=== PATIENT | female | born 1990 | race African-American/Black ===

== ENCOUNTER 2019-09-29 14:14 | Emergency (ER) | payer MEDICAID, SELFPAY ==
[2019-09-29 14:35] VITALS: BP 112/67; PULSE 96; RESP 16; TEMP 38.4; O2SAT 100
--- NOTE | 2019-09-29 14:51 | ED.EAR ---
HPI - Ear Problem General Chief complaint: Urogenital-Female Stated complaint: pos UTI/bloody/earache Time Seen by Provider: 09/29/19 14:44 Source: patient and RN notes reviewed Mode of arrival: ambulatory Limitations: no limitations History of Present Illness HPI Narrative: Patient presents today with a 2-day history of bilateral ear pain. Denies fever, cough, congestion, rhinorrhea, sore throat, decreased hearing, drainage from the ears. She has been taking ibuprofen with some relief. Currently rates her pain 6/10. She also complains of a 2-day history of urinary frequency and blood with wiping. MD Complaint: ear pain and other (Urinary frequency) Related Data Allergies Allergy/AdvReac Type Severity Reaction Status Date / Time No Known Allergies Allergy Verified 06/19/18 18:18 Review of Systems Review of Systems: Narrative: CONSTITUTIONAL: Denies body aches, fever, chills, or sweats. EYES: Denies visual changes, redness, or discharge. ENT: Denies rhinorrhea, congestion, sore throat. + Bilateral ear pain CARDIOVASCULAR: Denies chest pain, palpitations, or edema. RESPIRATORY: Denies cough or dyspnea. GASTROINTESTINAL: Denies abdominal pain, nausea, vomiting, or diarrhea. GENITOURINARY: Denies dysuria. + Frequency, hematuria SKIN: Denies rash, itching, or wounds. MUSCULOSKELETAL: Denies back pain, joint pain, or myalgia. NEUROLOGIC: Denies headache, numbness, tingling, or weakness. PSYCH: Denies depression or anxiety. [facility] Family History Family History (Updated 02/08/16 @ 11:56 by DOCTOR UNKNOWN) Other Diabetes mellitus Hypertension Social History Social History (Updated 09/29/19 @ 14:52 by Luz Marina Balderas, [facility], ) Smoking status: Former smoker Alcohol intake: current Comments At time of signature, I have reviewed and agree with nursing past medical, surgical, social and family history unless otherwise noted. Please see nursing chart for further information. There is no relevant family history pertinent to the presenting complaint Exam Narrative: Exam Narrative: GENERAL: Well-appearing, well-nourished, and in no acute distress. HEAD: Normocephalic, atraumatic. EYES: EOMI. No redness or drainage. Conjunctivae normal. ENT: Mucous membranes pink and moist. Nares clear. No rhinorrhea. TMs erythematous and bulging with purulent material bilaterally. Throat normal. Uvula midline. NECK: Normal AROM. Supple. No lymphadenopathy. CHEST: No respiratory distress. Clear to auscultation. HEART: Regular rate and rhythm. No murmur appreciated. Normal peripheral pulses. ABDOMEN: Soft, nontender, nondistended, normal active bowel sounds.-CVAT MUSCULOSKELETAL: No bony tenderness. EXTREMITIES: Normal range of motion. No edema. SKIN: Warm, dry, no rash. NEURO: No focal deficits. Alert and oriented x3. Gait steady. PSYCH: Normal affect. No signs of depression or anxiety. Course Vital Signs Vital signs: Vital Signs Temperature 101.2 F H 09/29/19 14:35 Pulse Rate 96 09/29/19 14:35 Respiratory Rate 16 09/29/19 14:35 Blood Pressure 112/67 09/29/19 14:35 Pulse Oximetry 100 09/29/19 14:35 Temperature 101.2 F H 09/29/19 14:35 Pulse Rate 96 09/29/19 14:35 Respiratory Rate 16 09/29/19 14:35 Blood Pressure 112/67 09/29/19 14:35 Pulse Oximetry 100 09/29/19 14:35 Reviewed Medical Decision Making Differential Diagnosis Differential Diagnosis: AOM, otitis externa, ruptured TM, serous otitis, eustachian tube dysfunction, UTI, pyelonephritis, interstitial cystitis, vulvovaginitis Vital Signs Vital Signs: Vital Signs Temperature 101.2 F H 09/29/19 14:35 Pulse Rate 96 09/29/19 14:35 Respiratory Rate 16 09/29/19 14:35 Blood Pressure 112/67 09/29/19 14:35 Pulse Oximetry 100 09/29/19 14:35 Temperature 101.2 F H 09/29/19 14:35 Pulse Rate 96 09/29/19 14:35 Respiratory Rate 16 09/29/19 14:35 Blood Pressure 112/67 09/29/19 14:35 Pulse Oximetry 100
== END 2019-09-29 14:59 | disposition home or self-care (01) ==
PROVIDERS: Emergency Provider Nurse Practitioner
DX: N30.01 Acute cystitis with hematuria (principal); H66.003 Acute suppurative otitis media without spontaneous rupture of ear drum, bilateral; Z87.891 Personal history of nicotine dependence
CPT/HCPCS: 81003; 87086; 99213; G0463

== ENCOUNTER 2020-11-10 10:23 | Emergency (ER) | payer OTHER, SELFPAY ==
[2020-11-10 10:30] VITALS: BP 99/64; PULSE 74; RESP 17; TEMP 36.4; O2SAT 100
--- NOTE | 2020-11-10 10:30 | ED.DENTAL ---
HPI - Dental/Oral General Chief complaint: Dental/Oral Stated complaint: tooth abscess Source: patient Mode of arrival: ambulatory Limitations: no limitations History of Present Illness HPI Narrative: Patient is a 30 year old female who presents with dental pain. Patient reports that she has appointment with dentist on 11/22/20 for multiple extractions. Patient reports swelling to left gums and face x 2 days, increasing pain today. Patient reports taking otc medications for pain. MD Complaint: tooth pain Related Data Home Medications Medication Instructions Recorded Confirmed No Home Medications 11/10/20 11/10/20 Allergies Allergy/AdvReac Type Severity Reaction Status Date / Time No Known Allergies Allergy Verified 11/10/20 10:36 Review of Systems Review of Systems: Narrative: CONSTITUTIONAL: Denies fever, chills, or sweats. EYES: Denies visual changes, redness, or discharge. ENT: Denies rhinorrhea, congestion, sore throat, or otalgia. Right and left lower dental pain CARDIOVASCULAR: Denies chest pain, palpitations, or edema. RESPIRATORY: Denies cough or dyspnea. GASTROINTESTINAL: Denies abdominal pain, nausea, vomiting, or diarrhea. GENITOURINARY: Denies dysuria or hematuria. SKIN: Denies rash or itching. MUSCULOSKELETAL: Denies back pain, joint pain, or myalgia. NEUROLOGIC: Denies headache, numbness, dizziness, or weakness. PSYCHIATRIC: Denies anxiety or depression. [facility] Family History Family History Other Diabetes mellitus Hypertension Social History Social History Smoking status: Former smoker Alcohol intake: current Gender identity (if verbalized by the patient): Female Comments At the time of signature, I have reviewed and agree with nursing past medical, surgical, social, and family history unless otherwise noted. Please see nursing chart for further information. There is no relevant family history pertinent to the presenting complaint. Exam Narrative: Exam Narrative: GENERAL: Well-appearing, well-nourished, and in no acute distress. HEAD: Normocephalic, atraumatic. EYES: No redness or drainage. ENT: Mucous membranes pink and moist. Multiple dental caries, dental fractures. NECK: AROM. Supple. No lymphadenopathy. CHEST: No respiratory distress. HEART: Regular rate and rhythm. EXTREMITIES: Normal range of motion. No edema. SKIN: Warm, dry, no rash. NEURO: No focal deficits. Alert and oriented x3. Gait steady. PSYCH: Normal affect. No signs of depression or anxiety. MDM - Dental/Oral MDM Narrative Medical decision making narrative: Patient most likely has dental infection. Patient started on Augmentin at this time. Patient is aware that she needs to follow-up with her dentist on 11/22/2020 with appointment for extractions. She may take Tylenol or ibuprofen for pain or fever. Follow-up with PCP as needed. Differential Diagnosis Differential diagnosis: Likely gingival abscess, dental caries, toothache, dental abscess and fracture of tooth Critical Care Time Critical Care Time Critical Care Time: No Discharge Plan Discharge Clinical Impression: Toothache, Dental caries, Dental abscess Patient Disposition: Home, Self-Care Condition: Stable Instructions: Antibiotic Form, Dental Abscess (ED), Toothache (ED) Prescriptions: New amoxicillin-pot clavulanate 875-125 mg tablet 1 tablet PO Q12H 7 Days Qty: 14 RF: 0 No Action No Home Medications RF: 0 Follow-up/Referrals: UNKNOWN,DOCTOR [Primary Care Provider] - Stand Alone Forms: Work/School Release IP Time of Disposition: 10:39
== END 2020-11-10 10:43 | disposition home or self-care (01) ==
PROVIDERS: Emergency Provider Nurse Practitioner
DX: K02.9 Dental caries, unspecified (principal); K04.7 Periapical abscess without sinus; Z87.891 Personal history of nicotine dependence
CPT/HCPCS: 99213; G0463

== ENCOUNTER 2020-12-26 14:35 | Emergency (ER) | payer OTHER, SELFPAY ==
[2020-12-26 14:46] VITALS: BP 114/64; PULSE 20; RESP 20; TEMP 35.8; O2SAT 100
[2020-12-26 14:50] VITALS: BP 114/64; PULSE 20; RESP 20; TEMP 35.8; O2SAT 100
--- NOTE | 2020-12-26 14:59 | ED.FEMALEGU ---
HPI - Female Genitourinary General Chief complaint: Urogenital-Female Stated complaint: UTI Time Seen by Provider: 12/26/20 14:59 Source: patient, RN notes reviewed and old records reviewed Mode of arrival: ambulatory Limitations: no limitations History of Present Illness HPI Narrative: 30 year old female who presents to [facility] care with complaints of one week duration of vaginal itching, scant white vaginal drainage and burning when she urinate. Patient states that she took a Diflucan on December 15 and really didn't resolve symptoms. Patient states that symptoms seemed better for a few days then returned. She states that she has only one partner and has unprotected intercourse, wants to be checked for STD's an UTI. MD elicited complaint: dysuria, vaginal discharge (scant), possible STD and genital itching Pertinent past history: other (prior UTI's and labial abscess) Onset (ago): day(s) (week) Location of symptoms: external genitalia and vaginal Female Urogenital Radiation: Non-Radiating Severity scale (1-10): 4 Quality of pain: burning Consistency: intermittent Vaginal discharge: white, creamy and other (itchy) Vaginal bleeding: none Urinary symptoms: Dysuria Exacerbating factors: urination Relieving factors: none Treatment prior to arrival: other (Diflucan on 12/15/2020) Sexual activity: Yes Patient : No Related Data Allergies Allergy/AdvReac Type Severity Reaction Status Date / Time No Known Allergies Allergy Verified 11/10/20 10:36 Review of Systems Review of Systems: Narrative: CONSTITUTIONAL: Denies fever, chills, or sweats. EYES: Denies visual changes, redness, or discharge. ENT: Denies rhinorrhea, congestion, sore throat, or otalgia. CARDIOVASCULAR: Denies chest pain, palpitations, or edema. RESPIRATORY: Denies cough or dyspnea. GASTROINTESTINAL: Denies abdominal pain, nausea, vomiting, or diarrhea. GENITOURINARY: Positive dysuria no hematuria.vaginal itching with scant white discharge SKIN: Denies rash or itching. MUSCULOSKELETAL: Denies back pain, joint pain, or myalgia. NEUROLOGIC: Denies headache, numbness, or weakness. PSYCHIATRIC: Denies anxiety or depression. All systems reviewed & are unremarkable except as noted in HPI and below PMFSH Past Medical History Medical History (Updated 12/30/20 @ 20:00 by Leslie Ledezma NP) Abscess of labia Dentalgia Pilonidal abscess UTI (urinary tract infection) Surgical History Surgical History (Updated 12/30/20 @ 20:00 by Leslie Ledezma NP) No history of previous surgery Family History Family History Other Diabetes mellitus Hypertension Social History Social History (Updated 12/30/20 @ 19:51 by Leslie Ledezma NP) Smoking status: Former smoker Tobacco type: cigarettes Alcohol intake: current Substance use: never Living arrangements: with family Gender identity (if verbalized by the patient): Female Comments At time of signature, agree with nursing past medical, surgical, social and family history. There is no relevant family history pertinent to the presenting complaint Exam Narrative: Exam Narrative: GENERAL: Well-appearing, well-nourished, and in no acute distress. HEAD: Normocephalic, atraumatic. EYES: PERRLA and EOMI. ENT: Nares clear, no rhinorrhea or epistaxis. Mucous membranes moist.TM's normal with good light reflex, throat pink with no exudates or lesions, no tonsil enlargement NECK: Supple.no lymphadenopathy CHEST: Clear to auscultation. No respiratory distress.SAO2 100% on room air HEART: Regular rate and rhythm. No murmur heard. Normal peripheral pulses. ABDOMEN: Soft, nontender, nondistended, normal active bowel sounds.No CVA tenderness on exam or any suprapubic tenderness. cant white discharge stated that is itchy EXTREMITIES: Normal range of motion. No edema. SKIN: Warm, dry, no rash. NEURO: No focal deficits. Alert and oriented x3. Course Vital Signs
[2020-12-26] MEDS: LIDOCAINE HCL 1% LOCAL INJ 20 ML VIAL 2.1 ML IM (15:29)
[2020-12-26] MEDS: cefTRIAXone 1 GM VIAL IM (15:29)
== END 2020-12-26 15:54 | disposition home or self-care (01) ==
PROVIDERS: Emergency Provider Registered Nurse
DX: B37.3 Candidiasis of vulva and vagina (principal); Z20.2 Contact with and (suspected) exposure to infections with a predominantly sexual mode of transmission
CPT/HCPCS: 81003; 81025; 87077; 87086; 87088; 87186; 87491; 87591; 87661; 96372; 99214; G0463; J0696

== ENCOUNTER 2021-02-18 10:49 | Emergency (ER) | payer OTHER, SELFPAY ==
[2021-02-18 10:59] VITALS: BP 104/73; PULSE 66; RESP 20; TEMP 36.7; O2SAT 100
--- NOTE | 2021-02-18 11:31 | ED.FEMALEGU ---
HPI - Female Genitourinary General Chief complaint: Urogenital-Female Stated complaint: abd pain Time Seen by Provider: 02/18/21 11:09 Source: patient and RN notes reviewed Mode of arrival: ambulatory Limitations: no limitations History of Present Illness HPI Narrative: Patient presents today complaining of one episode of dysuria since yesterday, white vaginal discharge x2 days. Her last menstrual period was in December. She had 2 episodes of unprotected intercourse, one yesterday, and 1 2 weeks ago. She has been taking some ibuprofen for some lower abdominal discomfort. MD elicited complaint: dysuria and vaginal discharge Related Data Home Medications Medication Instructions Recorded Confirmed terbinafine HCl 250 mg PO DAILY 02/18/21 02/18/21 Allergies Allergy/AdvReac Type Severity Reaction Status Date / Time No Known Allergies Allergy Verified 02/18/21 11:06 Review of Systems Review of Systems: CONSTITUTIONAL: Denies body aches, fever, chills, or sweats. EYES: Denies visual changes, redness, or discharge. ENT: Denies rhinorrhea, congestion, sore throat, or otalgia. CARDIOVASCULAR: Denies chest pain, palpitations, or edema. RESPIRATORY: Denies cough or dyspnea. GASTROINTESTINAL: Denies abdominal pain, nausea, vomiting, or diarrhea. GENITOURINARY: Denies hematuria. + Vaginal discharge, dysuria SKIN: Denies rash, itching, or wounds. MUSCULOSKELETAL: Denies back pain, joint pain, or myalgia. NEUROLOGIC: Denies headache, numbness, tingling, or weakness. PSYCH: Denies depression or anxiety. [facility] Past Medical History Medical History Abscess of labia Dentalgia Pilonidal abscess UTI (urinary tract infection) Surgical History Surgical History No history of previous surgery Family History Family History Other Diabetes mellitus Hypertension Social History Social History Smoking status: Former smoker Tobacco type: cigarettes Alcohol intake: current Substance use: never Gender identity (if verbalized by the patient): Female Comments At time of signature, I have reviewed and agree with nursing past medical, surgical, social and family history unless otherwise noted. Please see nursing chart for further information. There is no relevant family history pertinent to the presenting complaint Exam Narrative: GENERAL: Well-appearing, well-nourished, and in no acute distress. HEAD: Normocephalic, atraumatic. EYES: EOMI. No redness or drainage. Conjunctivae normal. ENT: Mucous membranes pink and moist. NECK: Normal AROM. CHEST: No respiratory distress. Clear to auscultation. HEART: Regular rate and rhythm. No murmur appreciated. Normal peripheral pulses. ABDOMEN: Soft, nontender, nondistended, normal active bowel sounds. MUSCULOSKELETAL: No bony tenderness. EXTREMITIES: Normal range of motion. No edema. SKIN: Warm, dry, no rash. Capillary refill normal. Normal skin turgor. NEURO: No focal deficits. Alert and oriented x3. Gait steady. PSYCH: Normal affect. No signs of depression or anxiety. Course Vital Signs Vital signs: Vital Signs Temperature 98.0 F 02/18/21 10:59 Pulse Rate 66 02/18/21 10:59 Respiratory Rate 20 02/18/21 10:59 Blood Pressure 104/73 02/18/21 10:59 Pulse Oximetry 100 02/18/21 10:59 Temperature 98.0 F 02/18/21 10:59 Pulse Rate 66 02/18/21 10:59 Respiratory Rate 20 02/18/21 10:59 Blood Pressure 104/73 02/18/21 10:59 Pulse Oximetry 100 02/18/21 10:59 Reviewed MDM - Female Genitourinary Differential Diagnosis Differential diagnosis: Likely urinary tract infection, bacterial vaginosis, trichomoniasis and other (Gonorrhea, chlamydia) Lab Data Attestation: I reviewed the patient's lab results. Taina
[2021-02-18] MEDS: LIDOCAINE HCL 1% LOCAL INJ 20 ML VIAL IM (11:42)
--- NOTE | 2021-02-18 11:44 | PC.NURSE ---
1142- Rocephin 500mg double checked by Khloe Nolasco, prior to administration.
== END 2021-02-18 12:03 | disposition home or self-care (01) ==
PROVIDERS: Emergency Provider Nurse Practitioner
DX: Z20.2 Contact with and (suspected) exposure to infections with a predominantly sexual mode of transmission (principal); N89.8 Other specified noninflammatory disorders of vagina; Z87.891 Personal history of nicotine dependence
CPT/HCPCS: 81003; 81025; 87491; 87591; 87661; 96372; 99214; G0463; J0696

== ENCOUNTER 2021-03-07 12:20 | Emergency (ER) | payer OTHER, SELFPAY ==
--- NOTE | ~2021-03-07 | XR_ITS ---
EXAMINATION: XR foot LT min 3V, XR ankle LT min 3V EXAM DATE: 03/07/2021 12:49 INDICATION: Initial encounter following injury, with pain of the left foot, ankle. TECHNIQUE: Left foot dorsoplantar, lateral and oblique projections obtained and reviewed. Left ankle frontal, lateral and oblique projections obtained and reviewed. There is no prior study for compari son. FINDINGS: Left metatarsal bones unremarkable. The left ankle mortise appears intact. Small cleft i n the distal aspect of the fibula identified on an oblique projection of the foot at expected locatio n of Physis, likely normal variant. There are no acute fractures or dislocations suspected. There is no subcutaneous gas. The soft tissue is unremarkable. There are no radiopaque foreign bodies. IMPRESSION: No acute osseous findings. Reviewed, dictated and finalized at location A. IMPRESSION: No acute osseous findings. IMPRESSION: No acute osseous findings.
[2021-03-07 12:30] VITALS: BP 106/67; PULSE 62; RESP 16; TEMP 36.4; O2SAT 100
--- NOTE | 2021-03-07 12:59 | ED.LOWEXIN ---
HPI - Extremity Injury (Lower) General Chief Complaint: Extremity Injury, Lower Stated Complaint: LEFT ANKLE PAIN Time Seen by Provider: 03/07/21 13:00 Source: patient and RN notes reviewed Mode of arrival: ambulatory Limitations: no limitations History of Present Illness HPI Narrative: 30-year-old female presents to the [facility] with complaints of left ankle pain. Patient states that she twisted her ankle. Did not fall did not hit head. No knee pain or hip pain. No treatment prior to arrival. States it occurred approximately 750 this morning. Related Data Allergies Allergy/AdvReac Type Severity Reaction Status Date / Time No Known Allergies Allergy Verified 02/18/21 11:06 Review of Systems Review of Systems: All systems reviewed & are unremarkable except as noted in HPI and below Constitutional: Constitutional: Reports no additional constitutional complaints Eyes: Eyes: Reports no additional eye complaints ENT: Reports system reviewed and no additional complaints, except as documented Cardiovascular: Cardiovascular: Reports no additional cardiovascular complaints Respiratory: Respiratory: Reports no additional respiratory complaints Musculoskeletal: Musculoskeletal: Reports as per HPI and Reports arthralgias (Left ankle) Integumentary/Breasts: Skin/Breast: Reports system reviewed and no additional complaints, except as docu and Denies rash Neurologic: Reports system reviewed and no additional complaints, except as documented, Denies headache(s), Denies numbness and Denies weakness Psychiatric: Psychiatric: Reports no additional psychiatric complaints Allergic/Immunologic: Allergic/Immunologic: Reports no additional allergic/immunologic complaints [facility] Past Medical History Medical History Abscess of labia Dentalgia Pilonidal abscess UTI (urinary tract infection) Surgical History Surgical History No history of previous surgery Family History Family History Other Diabetes mellitus Hypertension Social History Social History Smoking status: Former smoker Tobacco type: cigarettes Alcohol intake: current Substance use: never Gender identity (if verbalized by the patient): Female Comments Discharge instructions reviewed with patient, as well as provided in writing per nursing staff. The instructions also include specific and strict return/GO TO THE ER as well as f/u information. All questions have been answered, and the patient deny any further questions with discharge and discharge plan. Exam Const: General: healthy appearing and alert Nutritional Appearance: well nourished Orientation/consciousness: patient oriented x3 Limitations: no limitations Other: Appears in mild pain with movement of the ankle HENMT: Head: normal to inspection Eyes: Conjunctivae: conjunctivae normal Pupils: Equal, round and reactive pupils present Neck: Neck: normal visual inspection, no lymphadenopathy and no meningeal signs Chest: Chest palpation & inspection: normal inspection of the chest Resp: Effort & Inspection: normal respiratory effort and no use of accessory muscles Auscultation: clear to auscultation bilaterally Cardio: Rate: regular rate Rhythm: regular rhythm GI: GI Palp: Yes Soft to palpation and No Tenderness to palpation present (GI) : General: Yes no CVA tenderness Back/Spine/Pelvis: Back: no CVA tenderness Skin: General skin exam: normal color Wounds: no wounds Neuro: General: patient oriented x3, moves all extremities, no meningeal signs and no focal motor deficits Speech: normal speech Gait exam (Neuro): Normal gait present Extrem: General: normal to inspection Left lower extremity: normal capillary refill and ankle Details: te
== END 2021-03-07 13:24 | disposition home or self-care (01) ==
PROVIDERS: Emergency Provider Nurse Practitioner; PCP Physician Assistant
DX: S93.402A Sprain of unspecified ligament of left ankle, initial encounter (principal); X50.9XXA Other and unspecified overexertion or strenuous movements or postures, initial encounter; Z87.891 Personal history of nicotine dependence
CPT/HCPCS: 73610; 73630; 99213; G0463

== ENCOUNTER 2021-04-07 17:51 | Emergency (ER) | payer OTHER, SELFPAY ==
[2021-04-07 17:59] VITALS: BP 110/75; PULSE 73; RESP 20; TEMP 37.2; O2SAT 100
--- NOTE | 2021-04-07 18:32 | ED.DENTAL ---
HPI - Dental/Oral General Chief complaint: Dental/Oral Stated complaint: Blessing Pain Time Seen by Provider: 04/07/21 18:32 Source: patient Mode of arrival: ambulatory Limitations: no limitations History of Present Illness HPI Narrative: Martina Chatterjee is a 30 yo female with no PMH who comes to [facility] with dental pain that she has a repeat patient for the same complaint and has a dental appointment on the . Because of her increased pain and swelling Related Data Home Medications Medication Instructions Recorded Confirmed terbinafine HCl mg 04/07/21 Allergies Allergy/AdvReac Type Severity Reaction Status Date / Time No Known Allergies Allergy Verified 02/18/21 11:06 Review of Systems Review of Systems: CONSTITUTIONAL: Denies fever, chills, sweats. EYES: Denies visual changes, redness, discharge. ENT: Denies rhinorrhea, congestion, sore throat, otalgia. Has left-sided dental pain with swelling CARDIOVASCULAR: Denies chest pain, palpitations, edema. RESPIRATORY: Denies dyspnea, wheezing, cough GASTROINTESTINAL: Denies abdominal pain, nausea, vomiting, diarrhea. GENITOURINARY: Denies dysuria, hematuria, abnormal discharge SKIN: Denies rash or itching. NEUROLOGIC: Denies numbness, or focal weakness. PSYCHIATRIC: Denies anxiety or depression. [facility] Past Medical History Medical History Abscess of labia Dentalgia Pilonidal abscess UTI (urinary tract infection) Surgical History Surgical History No history of previous surgery Family History Family History Other Diabetes mellitus Hypertension Social History Social History Smoking status: Former smoker Tobacco type: cigarettes Alcohol intake: current Substance use: never Gender identity (if verbalized by the patient): Female Comments At time of signature, I agree with nursing past medical, surgical, social and family history. There is no relevant family history pertinent to the presenting complaint. Exam Narrative: GENERAL: This is a well-nourished, well-developed patient, in mild distress. HEAD: normocephalic, atraumatic. EYES: Sclera clear/white. Vision is grossly intact. EARS: External ears normal, Hearing grossly intact. NOSE: External nose normal without nasal discharge, nares without redness, no rhinorrhea. THROAT: Mucous membranes moist, Mild states that she is has difficulty opening without pain and has left-sided swelling this and tenderness to her jaw NECK: Neck supple, non-tender CARDIOVASCULAR: Regular rate and rhythm without murmurs, gallops, or rubs. RESPIRATORY: Clear to auscultation. Breath sounds equal bilaterally. No wheezes, rales, or rhonchi. GASTROINTESTINAL: Abdomen soft, non-tender, SKIN: warm, intact with no suspicious lesions or rash, good texture and turgor. NEURO: awake, alert, and oriented to person, place and time. There were no obvious focal neurologic abnormalities. Steady gait EXTREMITIES: Normal range of motion. BACK: Nontender without deformity Course Course Emergency Course: Patient comes with dental pain to [facility] with swelling and pain on the left side Started on penicillin, ibuprofen 800 mg 3 times daily, viscous lidocaine Follow-up with dentist appointment Vital Signs Vital signs: Vital Signs Temperature 99.0 F 04/07/21 17:59 Pulse Rate 73 04/07/21 17:59 Respiratory Rate 20 04/07/21 17:59 Blood Pressure 110/75 04/07/21 17:59 Pulse Oximetry 100 04/07/21 17:59 Temperature 99.0 F 04/07/21 17:59 Pulse Rate 73 04/07/21 17:59 Respiratory Rate 20 04/07/21 17:59 Blood Pressure 110/75 04/07/21 17:59 Pulse Oximetry 100 04/07/21 17:59 MDM - Dental/Oral Differential Diagnosis Differential diagnosis: Likely gingival abscess, d
== END 2021-04-07 18:55 | disposition home or self-care (01) ==
PROVIDERS: Emergency Provider Nurse Practitioner; PCP Physician Assistant
DX: K04.7 Periapical abscess without sinus (principal); Z87.891 Personal history of nicotine dependence
CPT/HCPCS: 99213; G0463

== ENCOUNTER 2021-04-10 15:07 | Emergency (ER) | payer OTHER, SELFPAY ==
--- NOTE | 2021-04-10 15:13 | ED.URI ---
HPI - URI/Sore Throat General Chief Complaint: Dental/Oral Stated Complaint: SORE THROAT/TOOTH PAIN Source: patient and RN notes reviewed Mode of arrival: ambulatory Limitations: no limitations Related Data Home Medications Medication Instructions Recorded Confirmed terbinafine HCl mg 04/07/21 Allergies Allergy/AdvReac Type Severity Reaction Status Date / Time No Known Allergies Allergy Verified 02/18/21 11:06 Review of Systems Review of Systems: CONSTITUTIONAL: Denies malaise, chills, sweats, or fever. EYES: Denies visual changes, redness, or discharge. ENT: Denies rhinorrhea, congestion, sinus pain, otalgia or sore throat. CARDIOVASCULAR: Denies chest pain, palpitations, or edema. RESPIRATORY: Denies cough or dyspnea. GASTROINTESTINAL: Denies abdominal pain, nausea, vomiting, diarrhea, bloody, or mucous stools. GENITOURINARY: Denies dysuria or hematuria. SKIN: Denies rash or itching. MUSCULOSKELETAL: Denies back pain, joint pain, or myalgia. NEUROLOGIC: Denies numbness, weakness, or headache. PSYCHIATRIC: Denies anxiety or depression. All systems reviewed & are unremarkable except as noted in HPI and below PMFSH Past Medical History Medical History Abscess of labia Dentalgia Pilonidal abscess UTI (urinary tract infection) Surgical History Surgical History No history of previous surgery Family History Family History Other Diabetes mellitus Hypertension Social History Social History Smoking status: Former smoker Tobacco type: cigarettes Alcohol intake: current Substance use: never Gender identity (if verbalized by the patient): Female Comments At time of signature, agree with nursing past medical, surgical, social and family history. There is no relevant family history pertinent to the presenting complaint Exam Narrative: GENERAL: Well-appearing, well-nourished, and in no acute distress. HEAD: Normocephalic EYES: PERRLA, conjunctivae clear ENT: Nares clear, turbinates edematous and erythematous, clear discharge. Mucous membranes moist. TM pearly rabago with dull light reflex bilaterally; no tragal tenderness. Oropharynx erythematous without lesions. Tonsils enlarged and without exudate, no drooling, no hoarseness, no trismus, uvula midline. NECK: Supple. No lymphadenopathy CHEST: Clear to auscultation, breath sounds equal. No wheezing, rhonchi, rales, or stridor. No respiratory distress, speaks in full sentences. HEART: Regular rate and rhythm. No murmur heard. SKIN: Warm, dry, no rash. NEURO: Alert and oriented x3. PSYCH: Normal mood and affect Course Course Emergency Course: Patient is aware of diagnosis, understands and agrees to treatment plan. Anticipatory guidance given. Patient agrees to follow-up as directed and is aware of reasons to seek care at the emergency department. Portions of this record may have been created with voice recognition software Vital Signs Vital signs: Reviewed. MDM - URI/Sore Throat MDM Narrative Medical decision making narrative: Patients pain and complaint coupled with physical findings are consistant with dentalgia. There are no focal signs of space occupying lesions that are compromising to the airway; no dysphagia, odynophagia, dysphonia, or dyspnea. No uvular deviation or soft palate edema. Patient is non-toxic appearing. The floor of the mouth is soft with no signs of Francisco's Angina; no induration below mandible, no neck pain. Patient is without trismus or drooling and able to swallow secretions. Patient is felt appropriate for discharge home with dental follow up. Differential diagnosis considered: Clarke virus, strep pharyngitis, allergic rhinitis, upper respiratory tract infection, sinusitis, rhinosinusitis, nasopharyngitis. vi
[2021-04-10 15:17] VITALS: BP 132/89; PULSE 96; RESP 16; TEMP 37.2; O2SAT 100
--- NOTE | 2021-04-10 16:00 | ED.DENTAL ---
HPI - Dental/Oral General Chief complaint: Dental/Oral Stated complaint: SORE THROAT/TOOTH PAIN Time Seen by Provider: 04/10/21 15:49 Source: patient and RN notes reviewed Mode of arrival: ambulatory Limitations: no limitations History of Present Illness HPI Narrative: 30-year-old female presents with concern for dental infection that is not improving. Reports inability to open her mouth. Reports pain is spreading from the side of the face and down the throat. Reports she was seen in this clinic 3 days ago and was given antibiotics and ibuprofen. Reports she is unable to open her mouth and to take the antibiotics. Reports drooling. Reports she went to the dentist, however they would not treat her until her infection was resolved. Reports her last antibiotic was yesterday MD Complaint: tooth pain Related Data Home Medications Medication Instructions Recorded Confirmed terbinafine HCl mg 04/07/21 Allergies Allergy/AdvReac Type Severity Reaction Status Date / Time No Known Allergies Allergy Verified 02/18/21 11:06 Review of Systems Review of Systems: CONSTITUTIONAL: Reports malaise. Denies fever ENT: Reports sore throat, throat swelling, dental pain, inability to open mouth SKIN: Denies rash or itching. MUSCULOSKELETAL: Denies myalgia. NEUROLOGIC: Reports headache. All systems reviewed & are unremarkable except as noted in HPI and below PMFSH Past Medical History Medical History Abscess of labia Dentalgia Pilonidal abscess UTI (urinary tract infection) Surgical History Surgical History No history of previous surgery Family History Family History Other Diabetes mellitus Hypertension Social History Social History Smoking status: Former smoker Tobacco type: cigarettes Alcohol intake: current Substance use: never Gender identity (if verbalized by the patient): Female Comments At time of signature, agree with nursing past medical, surgical, social and family history. There is no relevant family history pertinent to the presenting complaint Exam Narrative: GENERAL: Nontoxic-appearing and in no acute distress. HEAD: Normocephalic, atraumatic. EYES: PERRLA, sclera clear ENT: Nares clear. Mucous membranes moist. Unable to evaluate oropharynx, patient unable to open mouth NECK: Supple. No lymphadenopathy. CHEST: No respiratory distress. Speaks in full sentences. HEART: Regular rate and rhythm. SKIN: Warm, dry, no visible rash. NEURO: Alert and oriented x3. No focal deficits. PSYCH: Normal mood and affect Course Course Emergency Course: Patient is aware of, understands and agrees to be seen in the emergency department. Patient agrees to proceed directly to the emergency department. Portions of this record may have been created with voice recognition software Vital Signs Vital signs: Vital Signs Temperature 98.9 F 04/10/21 15:17 Pulse Rate 96 04/10/21 15:17 Respiratory Rate 16 04/10/21 15:17 Blood Pressure 132/89 04/10/21 15:17 Pulse Oximetry 100 04/10/21 15:17 Temperature 98.9 F 04/10/21 15:17 Pulse Rate 96 04/10/21 15:17 Respiratory Rate 16 04/10/21 15:17 Blood Pressure 132/89 04/10/21 15:17 Pulse Oximetry 100 04/10/21 15:17 Reviewed. Patient transfer to emergency department, not appropriate time to discuss blood pressure Transfer Transfered to: [facility] Transportation: Other (Private vehicle) Transfer rationale: Dental infection, unable to open mouth Accepting physician: Dr. Rodriguez MDM - Dental/Oral MDM Narrative Medical decision making narrative: Exam findings warrant further evaluation the emergency department; patient is non-toxic appearing and is in no distress. Patient is appropriate for transfer via private vehi
== END 2021-04-10 15:58 | disposition short-term general hospital (02) ==
PROVIDERS: Emergency Provider Nurse Practitioner
DX: K04.7 Periapical abscess without sinus (principal); F17.210 Nicotine dependence, cigarettes, uncomplicated
CPT/HCPCS: 99212; G0463

== ENCOUNTER 2021-04-10 16:22 | Emergency (ER) | payer OTHER, SELFPAY ==
--- NOTE | ~2021-04-10 | CT_ITS ---
EXAMINATION: CT soft tissue neck w con DATE: 04/10/2021 20:25 INDICATION: Sore throat. Isthmus. TECHNIQUE: Computed tomography (CT) of the neck was performed with 75 mL Omnipaque-350 intravenous co ntrast. Automated exposure control and iterative reconstruction technique were employed. The dose-vincent gth product was 289.52 mGy-cm. COMPARISON: None FINDINGS: Multiple dental caries, several with associated periapical lucencies. This includes the posterior mos t left mandibular molar from which there is a tiny perforation of the medial cortex. There is underly ing 1.8 x 1.1 x 1.1 cm intramuscular abscess extending within the left medial pterygoid muscle. This causes some mass effect upon the left side of the oropharynx. There is no evident extension of absces s or inflammatory stranding beyond the training development manager space. Thyroid gland is unremarkable. The parotid g lands are normal and symmetric. There is mild asymmetric enlargement and subtle relative hyperemia of the left submandibular gland comparison to the right which may be reactive related to the adjacent a bscess which abuts the anterosuperior margin of the left submandibular gland. Asymmetric mildly enlar ged left level 2 lymph nodes which are likely reactive and still within normal limits. No masses iden tified. The vasculature is patent and normal in caliber. Airway is unremarkable. No osseous abnorma lities. Orbits are unremarkable. Superior mediastinum is unremarkable. Visualized sinuses and masto id aircells are well aerated.Lung apices are normal. IMPRESSION: 1. 1.8 x 1.1 x 1.1 cm left training development manager space abscess within the left medial pterygoid muscle which sun ears to arise from a dental Orin at the posterior most molar with periapical abscess having eroded t hrough the medial cortex of the mandible. Reviewed, dictated and finalized at location A. IMPRESSION: 1. 1.8 x 1.1 x 1.1 cm left training development manager space abscess within the left medial pter ygoid muscle which appears to arise from a dental Orin at the posterior most m olar with periapical abscess having eroded through the medial cortex of the man dible.
[2021-04-10 16:25] VITALS: BP 132/90; PULSE 86; RESP 16; TEMP 37.1; O2SAT 100
--- NOTE | 2021-04-10 19:35 | ED.DENTAL ---
HPI - Dental/Oral General Chief complaint: Dental/Oral Stated complaint: dental pain Time Seen by Provider: 04/10/21 19:24 Source: patient Mode of arrival: ambulatory Limitations: no limitations History of Present Illness HPI Narrative: This is a 30 year old female that presents to the ER for dentalgia present for the last week. Reports she has been taking oral Penicillin for the last 3 days without relief. Reports worsening swelling and pain. Reports today she has not been able to open her mouth. Denies fever. MD Complaint: tooth pain Location: Tooth # (19) Related Data Home Medications Medication Instructions Recorded Confirmed terbinafine HCl mg 04/07/21 Allergies Allergy/AdvReac Type Severity Reaction Status Date / Time No Known Allergies Allergy Verified 02/18/21 11:06 Review of Systems Review of Systems: CONSTITUTIONAL: Denies fever ENT: Reports dentalgia All systems reviewed & are unremarkable except as noted in HPI and below PMFSH Past Medical History Medical History Abscess of labia Dentalgia Pilonidal abscess UTI (urinary tract infection) Surgical History Surgical History No history of previous surgery Family History Family History Other Diabetes mellitus Hypertension Social History Social History Smoking status: Former smoker Tobacco type: cigarettes Alcohol intake: current Substance use: never Gender identity (if verbalized by the patient): Female Exam Narrative: GENERAL: Well-appearing, well-nourished, and in no acute distress. HEAD: Normocephalic, atraumatic. EYES: EOMI. ENT: Trismus present. Patient is able to tolerate her secretions. Tooth #19 appears rotten with mild surrounding redness, no obvious fluctuance to suggest abscess NECK: Supple. Mild tender left submandibular adenopathy CHEST: Clear to auscultation. No respiratory distress. No wheezes rales or rhonchi HEART: Regular rate and rhythm. No murmur heard. Normal peripheral pulses. EXTREMITIES: Normal range of motion. No edema. SKIN: Warm, dry, no rash. NEURO: No focal deficits. Alert and oriented x3. PSYCH: Normal mood and affect Course Consultations Consultation #1: Spoke with Dr. Chen about patient and workup who accepts transfer to [facility] Date: 04/10/21 Time: 22:37 Consultation #2: Spoke with Dr. Ayoub with [facility] who recommends transfer to the ER for further evaluation and treatment Date: 04/10/21 Time: 22:00 Vital Signs Vital signs: Vital Signs Temperature 98.8 F 04/10/21 16:25 Pulse Rate 86 04/10/21 16:25 Respiratory Rate 16 04/10/21 16:25 Blood Pressure 132/90 04/10/21 16:25 Pulse Oximetry 100 04/10/21 16:25 Temperature 99.0 F 04/10/21 23:04 Pulse Rate 78 04/10/21 23:04 Respiratory Rate 16 04/10/21 23:04 Blood Pressure 122/84 04/10/21 23:04 Pulse Oximetry 100 04/10/21 23:04 MDM - Dental/Oral MDM Narrative Medical decision making narrative: Patient presents the emergency department for dental pain over the last week. Had been evaluated by urgent care and started on penicillin V. Taking this without relief. Today she was unable to open her mouth. There is trismus present on exam. Patient is able to tolerate her oral secretions. She denies any difficulty breathing. Lungs are clear on exam. Oxygen saturation is normal on room air. She is afebrile and nontoxic-appearing. CBC with mild leukocytosis to 10.2. Metabolic panel without concerning findings. Inflammatory markers are mildly elevated. CT scan of the soft tissue neck shows a 1.8 x 1.1 x 1.1 cm left reservation clerk space abscess within the left medial pterygoid muscle which appears to arise from a dental carry at the posterior most molar with periapical abscess having e
[2021-04-10 19:45] LABS: Basophils Percent Auto 0.1 % (0.2-1.2); Eosinophils Absolute Auto 0.1 K/mm3 (0-0.3); Eosinophils Percent Auto 0.7 % (0-4.4); Hematocrit 40.1 % (37.0-47.0); Hemoglobin 13.5 g/dL (12.0-15.0); Immature Granulocyte Absolute 0.03 K/mm3 (0.00-0.031); Immature Granulocyte Percent A 0.3 % (0-0.5); Lymphocytes Absolute Auto 2.07 K/mm3 (0.9-3.2); Lymphocytes Percent Auto 20.4 % (18.3-44.2); Mean Corpuscular HGB Conc 33.7 g/dl (32-36); Mean Corpuscular Hemoglobin 30.3 pg (26-34); Mean Corpuscular Volume 89.9 fl (80-100); Mean Platelet Volume 10.1 fl (7.4-10.4); Monocytes Absolute Auto 0.7 K/mm3 (0.1-0.6); Monocytes Percent Auto 7.2 % (2.6-8.5); Neutrophils Absolute Auto 7.2 K/mm3 (1.3-6.7); Neutrophils Percent Auto 71.3 % (45.5-73.1); Platelet Count Result 158 k/mm3 (150-375); Red Blood Count 4.46 M/mm3 (4.2-5.4); Red Cell Distribution Width 12.7 % (11.5-14.5); White Blood Count 10.2 K/mm3 (4.5-10.0)
[2021-04-10 20:04] LABS: Anion Gap 10 mmol/L (8-16); Blood Urea Nitrogen 12 mg/dL (7-17); Calcium 9.5 mg/dL (8.4-10.2); Carbon Dioxide 27 mmol/L (22-30); Chloride 102 mmol/L (98-107); Estimated CRCL calculation 89 ml/min; Estimated Glomerular Filt Rate > 60; Glucose 90 mg/dL (65-110); Potassium 4.2 mmol/L (3.4-5.0); Sodium 139 mmol/L (137-145)
[2021-04-10 20:27] LABS: Erythrocyte Sedimentation Rate 37 mm/hr (0-20)
[2021-04-10] MEDS: MORPHINE SULFATE (*CRX) 4 MG/ML INJ IV PUSH (22:20)
[2021-04-10] MEDS: AMPICILLIN SULB 3 GM/NS 100 ML 3 GM/100 ML VIAL IVPB (22:20)
[2021-04-10] MEDS: ONDANSETRON INJ 4 MG/2 ML VIAL IV PUSH (22:20)
[2021-04-10 22:50] VITALS: BP 136/70; PULSE 78; RESP 18; TEMP 36.8; O2SAT 100
[2021-04-10 23:04] VITALS: BP 122/84; PULSE 78; RESP 16; TEMP 37.2; O2SAT 100
[2021-04-10 23:05] LABS: EDCOVIDSCREEN Negative (Negative)
== END 2021-04-10 23:19 | disposition short-term general hospital (02) ==
PROVIDERS: Physician Assistant; Emergency Provider Emergency Medicine; PCP Physician Assistant
DX: K12.2 Cellulitis and abscess of mouth (principal); Z20.822 Contact with and (suspected) exposure to COVID-19; Z87.891 Personal history of nicotine dependence
CPT/HCPCS: 36415; 70491; 80048; 81025; 85025; 85652; 86140; 87426; 96365; 96375; 99284; C9803; J0295; J2270; J2405; Q9967

== ENCOUNTER 2021-06-12 22:27 | Observation (INO) | payer OTHER, SELFPAY ==
--- NOTE | ~2021-06-12 | CT_ITS ---
EXAMINATION: CT abdomen pelvis w con DATE: 06/13/2021 00:57 INDICATION: Gluteal/perianal abscess TECHNIQUE: Computed tomography (CT) of the abdomen and pelvis was performed with 100 mL Omnipaque-350 intravenous contrast. Automated exposure control and iterative reconstruction technique were employe d. The dose-length product was 318.50 mGy-cm. COMPARISON: 01/28/2016 FINDINGS: Lung bases are clear. Heart size is normal. No pericardial or pleural effusion. Liver, gallbladder, s pleen, pancreas, bilateral adrenal glands and kidneys are normal. Bowels including the appendix are n ormal. Bladder, anteverted uterus and bilateral adnexa are unremarkable. There is a multiloculated eng bcutaneous abscess at the medial left buttock measuring 7.5 x 2.6 x 2.0 cm with extensive surrounding inflammatory stranding. There is suggestion of a tiny fistulous tract extending anterosuperiorly tow ards the region of the anus. Mild lumbar levocurvature. IMPRESSION: 1. 7.5 x 2.6 x 2.0 cm subcutaneous abscess at the medial left buttock positioned along the inferior a spect of the gluteal cleft and posterior medial thigh with suggestion of a perianal fistula. Reviewed, dictated and finalized at location A. NDER WORKER IMPRESSION: 1. 7.5 x 2.6 x 2.0 cm subcutaneous abscess at the medial left buttock positione d along the inferior aspect of the gluteal cleft and posterior medial thigh wit h suggestion of a perianal fistula.
[2021-06-12 22:30] VITALS: BP 136/75; PULSE 111; RESP 20; TEMP 37.1; O2SAT 100
--- NOTE | 2021-06-12 23:32 | ED.GENADULT ---
HPI - General Adult General Chief complaint: Unspecified Stated complaint: abcess to back Time Seen by Provider: 06/12/21 23:20 History of Present Illness HPI narrative: Patient 30-year-old female presents to emergency department with chief complaint of left gluteal pain. The patient reports she has history of a large perirectal perianal abscess in the past that required surgical drainage. Patient reports that the last several days she started having pain and swelling in that area she had no drainage but feels similar to whenever she is had an abscess before in the past. Patient states that it hurts whenever she attempts to walk reports that the pain goes all the way from the area of the anus all the way up to the area of the vagina. Related Data Home Medications Medication Instructions Recorded Confirmed terbinafine HCl mg 04/07/21 Allergies Allergy/AdvReac Type Severity Reaction Status Date / Time No Known Allergies Allergy Verified 02/18/21 11:06 Review of Systems Review of Systems: A 10 system review of systems was completed on the patient and is negative except for what is stated in the HPI. Nursing and ancillary documentation was reviewed. PMFSH Past Medical History Medical History Abscess of labia Dentalgia Pilonidal abscess UTI (urinary tract infection) Surgical History Surgical History No history of previous surgery Family History Family History Other Diabetes mellitus Hypertension Social History Social History Smoking status: Former smoker Tobacco type: cigarettes Alcohol intake: current Substance use: never Gender identity (if verbalized by the patient): Female Exam Narrative: GENERAL: Well-appearing, well-nourished, and in no acute distress. HEAD: Normocephalic, atraumatic. EYES: PERRLA and EOMI. ENT: Nares clear, no rhinorrhea or epistaxis. Mucous membranes moist. NECK: Supple. CHEST: Clear to auscultation. No respiratory distress. HEART: Regular rate and rhythm. No murmur heard. Normal peripheral pulses. ABDOMEN: Soft, nontender, nondistended, normal active bowel sounds. : The perianal area on the left gluteus region to the vaginal area is tender and swollen EXTREMITIES: Normal range of motion. No edema. SKIN: Warm, dry, no rash. NEURO: No focal deficits. Alert and oriented x3. PSYCH: Normal mood and affect. Course Vital Signs Vital signs: Vital Signs Temperature 37.1 C 06/12/21 22:30 Pulse Rate 111 H 06/12/21 22:30 Respiratory Rate 20 06/12/21 22:30 Blood Pressure 136/75 06/12/21 22:30 Pulse Oximetry 100 06/12/21 22:30 Temperature 37.1 C 06/12/21 22:30 Pulse Rate 97 06/13/21 02:00 Respiratory Rate 17 06/13/21 02:00 Blood Pressure 114/76 06/13/21 02:00 Pulse Oximetry 100 06/13/21 02:00 Medical Decision Making Vital Signs Vital Signs: Vital Signs Temperature 37.1 C 06/12/21 22:30 Pulse Rate 111 H 06/12/21 22:30 Respiratory Rate 20 06/12/21 22:30 Blood Pressure 136/75 06/12/21 22:30 Pulse Oximetry 100 06/12/21 22:30 Temperature 37.1 C 06/12/21 22:30 Pulse Rate 97 06/13/21 02:00 Respiratory Rate 17 06/13/21 02:00 Blood Pressure 114/76 06/13/21 02:00 Pulse Oximetry 100 06/13/21 02:00 Lab Data Result diagrams: 06/12/21 23:38 06/12/21 23:38 Labs: Lab Results 06/12/21 06/12/21 06/12/21 Range/Units 23:38 23:38 23:38 WBC 10.7 H (4.5-10.0) K/mm3 RBC 4.08 L (4.2-5.4) M/mm3 Hgb 12.2 (12.0-15.0) g/dL Hct 35.9 L (37.0-47.0) % MCV 88.0 (80-100) fl MCH 29.9 (26-34) pg MCHC 34.0 (32-36) g/dl RDW 12.1 (11.5-14.5) % Plt Count 162 (150-375) k/mm3 MPV 10.1
[2021-06-12 23:51] LABS: Basophils Percent Auto 0.2 % (0.2-1.2); Eosinophils Absolute Auto 0.2 K/mm3 (0-0.3); Eosinophils Percent Auto 1.9 % (0-4.4); Hematocrit 35.9 % (37.0-47.0); Hemoglobin 12.2 g/dL (12.0-15.0); Immature Granulocyte Absolute 0.03 K/mm3 (0.00-0.031); Immature Granulocyte Percent A 0.3 % (0-0.5); Lymphocytes Absolute Auto 2.02 K/mm3 (0.9-3.2); Lymphocytes Percent Auto 18.9 % (18.3-44.2); Mean Corpuscular Hemoglobin 29.9 pg (26-34); Mean Platelet Volume 10.1 fl (7.4-10.4); Monocytes Absolute Auto 0.7 K/mm3 (0.1-0.6); Monocytes Percent Auto 6.8 % (2.6-8.5); Neutrophils Absolute Auto 7.7 K/mm3 (1.3-6.7); Neutrophils Percent Auto 71.9 % (45.5-73.1); Platelet Count Result 162 k/mm3 (150-375); Red Blood Count 4.08 M/mm3 (4.2-5.4); Red Cell Distribution Width 12.1 % (11.5-14.5); White Blood Count 10.7 K/mm3 (4.5-10.0)
[2021-06-13] VITALS (14 sets, daily range): BP systolic 94–130; BP diastolic 55–99; PULSE 62–102; RESP 16–22; TEMP 36.6–38.3; O2SAT 97–100; BMI 24.3
[2021-06-13 00:30] LABS: Alanine Aminotransferase 26 U/L (4-35); Albumin Level 3.8 g/dL (3.5-5.1); Alkaline Phosphatase 99 U/L (38-126); Anion Gap 6 mmol/L (8-16); Aspartate Amino Transferase 24 U/L (14-36); Bilirubin,Total 0.3 mg/dL (0.2-1.3); Blood Urea Nitrogen 16 mg/dL (7-17); Carbon Dioxide 26 mmol/L (22-30); Chloride 100 mmol/L (98-107); Estimated CRCL calculation 103 ml/min; Estimated Glomerular Filt Rate > 60; Glucose 109 mg/dL (65-110); Lactic Acid Reflex 1.2 mmol/L (0.7-2.1); Potassium 3.8 mmol/L (3.4-5.0); Sodium 132 mmol/L (137-145)
[2021-06-13 00:35] LABS: Add Urine Microscopic? YES; Appearance Urine Clear (Clear); Bilirubin Urine Negative (Negative); Blood Urine 1+ (Negative); Color Urine Yellow (Yellow); Glucose Urine UA Negative (Negative); Ketones Urine Negative (Negative); Leukocyte Esterase Ur Trace LEU/UL (Negative); Mucus Urine Rare /lpf; Nitrate Urine Negative (Negative); Protein Urine Negative (Negative); Specific Grav Ur 1.019 (1.001-1.035); Squamous Epithelial Cell Urine Few /hpf (Few); Urobilinogen Urine Negative mg/dL (<2.0)
--- NOTE | 2021-06-13 00:39 | PC.NURSE ---
Patient taken to CT via stretcher.
[2021-06-13] MEDS: HYDROmorphone HCL INJ (*CRX) 1 MG/ML SYR IV PUSH (00:56)
[2021-06-13] MEDS: ONDANSETRON INJ 4 MG/2 ML VIAL IV PUSH ×2 (00:56→16:42)
[2021-06-13] MEDS: SODIUM CHLORIDE 0.9% IV 1,000 ML 999 ML IV CONT (00:56)
[2021-06-13] MEDS: MORPHINE SULFATE (*CRX) 4 MG/ML INJ IV PUSH ×4 (03:05→10:21)
[2021-06-13] MEDS: SODIUM CHLORIDE 0.9% IV 1,000 ML 125 ML IV CONT ×3 (03:52→20:18)
--- NOTE | 2021-06-13 04:05 | PC.NURSE ---
This patient, Martina Chatterjee, was admitted to [facility] Surg Room 305-02 at 0330. Patient/family oriented to hospital policies and general routines including ID bracelet, bed and alarms, visiting hours, pain management, procedures, bathroom and other care routines, personal items, smoking policy, room service/diet, and visiting hours. Information on how to activate the Rapid Response Team has been discussed. Patient/Family are encouraged to report perceived risks to care and to ask questions if they do not understand what they are told or what they should do.
--- NOTE | 2021-06-13 11:59 | PM.IMHP ---
H&P: HPI History of Present Illness Date/Time: 06/13/21 11:59 The patient is a 30-year-old female presenting to emergency department complaining of severe left perirectal pain. The patient reports that the pain started approximately a week ago and has been progressively worsening. The patient reports significant swelling in the area, however no obvious drainage. The patient reports subjective fevers and chills, weakness, poor appetite. Of note, the patient had an abscess drained in the same area in January of 2016. Workup in the emergency department, including CT scan, was significant for a large abscess in the left perirectal region. Chief Complaint: left perirectal abscess Review of Systems Constitutional: Constitutional: Reports anorexia, Reports body ache(s), Reports chills, Reports fatigue, Reports fever(s), Denies increased appetite, Reports lethargy, Reports malaise, Denies night sweats, Reports poor appetite, Reports weakness, Denies weight gain and Denies weight loss Eyes: Eyes: Reports no additional eye complaints ENT: Reports system reviewed and no additional complaints, except as documented Cardiovascular: Cardiovascular: Reports no additional cardiovascular complaints Respiratory: Respiratory: Reports no additional respiratory complaints Gastrointestinal: Gastrointestinal: Reports as per HPI Genitourinary: Genitourinary: Reports no additional female genitourinary complaints Musculoskeletal: Musculoskeletal: Reports no additional musculoskeletal complaints Integumentary/Breasts: Skin/Breast: Reports system reviewed and no additional complaints, except as docu Neurologic: Reports system reviewed and no additional complaints, except as documented Psychiatric: Psychiatric: Reports no additional psychiatric complaints Endocrine: Endocrine: Reports no additional endocrine complaints Hematologic/Lymphatic: Hematologic/Lymphatic: Reports no additional hematologic/lymphatic complaints Allergic/Immunologic: Allergic/Immunologic: Reports no additional allergic/immunologic complaints [facility] Past Medical History Medical History Abscess of labia Dentalgia Pilonidal abscess UTI (urinary tract infection) Surgical History Surgical History No history of previous surgery Family History Family History Other Diabetes mellitus Hypertension Social History Social History Smoking status: Former smoker Tobacco type: cigarettes Alcohol intake: current Substance use: never Substance use type: does not use Gender identity (if verbalized by the patient): Female Spiritual care concerns: No Meds Home Medications and Allergies Home Medications Medication Instructions Recorded Confirmed Type No Home Medications 06/13/21 06/13/21 History Allergies Allergy/AdvReac Type Severity Reaction Status Date / Time Sulfa (Sulfonamide Allergy Unknown Verified 06/13/21 04:04 Antibiotics) Vital Signs Vital Signs - 24 hr 06/12/21 22:30 06/13/21 01:03 06/13/21 02:00 Temperature 37.1 C Pulse Rate 111 H 101 H 97 Respiratory Rate 20 20 17 Blood Pressure 136/75 123/99 H 114/76 Pulse Oximetry 100 100 100 06/13/21 03:20 06/13/21 03:30 Temperature 37.2 C 37.4 C Pulse Rate 96 102 H Respiratory Rate 17 18 Blood Pressure 114/75 130/86 Pulse Oximetry 100 100 Exam Const: General: cooperative, well developed, alert, awake, Physically active, acute distress moderate, ill appearing and uncomfortable Nutritional Appearance: average body habitus Orientation/consciousness: patient oriented x3 Limitations: no limitations HENMT: Head: normal to inspection, No palpable skull fracture present, normocephalic and atraumatic Ears: hearing grossly normal bilaterally General nose exam: Nor
--- NOTE | 2021-06-13 12:06 | WPDHPUPDATE1 ---
History and Physical Update Update Date/Time: 06/13/21 12:06 History and Physical has been reviewed, including an updated exam of the patient. There are NO changes in the patient's condition. Risks, benefits, and alternatives have been discussed and questions answered. Patient agrees to proceed with procedure.
[2021-06-13] MEDS: HYDROmorphone HCL INJ (*CRX) 1 MG/ML SYR 2 MG IV PUSH ×4 (12:27→23:00)
[2021-06-13] MEDS: LACTATED RINGERS 1,000 ML 30 ML IV CONT ×3 (15:46→18:32)
--- NOTE | 2021-06-13 16:14 | WPDANESEPPF ---
Anes - Initial Pre Proc Eval Procedure: Operation Date: 06/13/21 18:30 Proposed Procedures p Complex Incision and Drainage Left Gluteal Abscess - Kat Owens MD Date/Time: 06/13/21 16:14 Surgeon: Kat Owens MD Pre Op Diagnosis: Left Gluteal Abscess Patient Data Age: 30 Gender: F Height: 1.65 m Weight: 66.2 kg Last Vital Signs Temp 38.3 C H 06/13/21 15:35 Pulse 78 06/13/21 15:35 Resp 16 06/13/21 15:35 BP 114/67 06/13/21 15:35 Pulse Ox 97 06/13/21 15:35 Allergies Allergy/AdvReac Type Severity Reaction Status Date / Time Sulfa (Sulfonamide Allergy Unknown Verified 06/13/21 04:04 Antibiotics) Home Medications Medication Instructions Recorded Confirmed Type No Home Medications 06/13/21 06/13/21 History Laboratory Tests 06/12/21 06/12/21 06/12/21 23:38 23:38 23:38 WBC 10.7 K/mm3 H K/mm3 (4.5-10.0) RBC 4.08 M/mm3 L M/mm3 (4.2-5.4) Hgb 12.2 g/dL g/dL (12.0-15.0) Hct 35.9 % L % (37.0-47.0) MCV 88.0 fl fl (80-100) MCH 29.9 pg pg (26-34) MCHC 34.0 g/dl g/dl (32-36) RDW 12.1 % % (11.5-14.5) Plt Count 162 k/mm3 k/mm3 (150-375) MPV 10.1 fl fl (7.4-10.4) Immature Gran % (Auto) 0.3 % % (0-0.5) Neut % (Auto) 71.9 % % (45.5-73.1) Lymph % (Auto) 18.9 % % (18.3-44.2) [place] % (Auto) 6.8 % % (2.6-8.5) Eos % (Auto) 1.9 % % (0-4.4) Baso % (Auto) 0.2 % % (0.2-1.2) Lymph # (Auto) 2.02 K/mm3 K/mm3 (0.9-3.2) [place] # (Auto) 0.7 K/mm3 H K/mm3 (0.1-0.6) Eos # (Auto) 0.2 K/mm3 K/mm3 (0-0.3) Baso # (Auto) 0.0 K/mm3 K/mm3 (0.0-0.1) Abs Immat Gran (auto) 0.03 K/mm3 K/mm3 (0.00-0.031) Absolute Neuts (auto) 7.7 K/mm3 H K/mm3 (1.3-6.7) Absolute Nucleated RBC 0.0 K/mm3 K/mm3 (0.0-0.012) Nucleated RBC % 0.0 % % (0.0-0.2) Sodium 132 mmol/L L mmol/L (137-145) Potassium 3.8 mmol/L mmol/L (3.4-5.0) Chloride 100 mmol/L mmol/L (98-107) Carbon Dioxide 26 mmol/L mmol/L (22-30) Anion Gap 6 mmol/L L mmol/L (8-16) BUN 16 mg/dL mg/dL (7-17) Creatinine 0.60 mg/dL L mg/dL (0.7-1.0) Estim Creat Clear Calc 103 ml/min ml/min Estimated GFR > 60 (59 - ) Glucose 109 mg/dL mg/dL (65-110) Lactic Acid 1.2 mmol/L mmol/L (0.7-2.1) Calcium 9.0 mg/dL mg/dL (8.4-10.2) Total Bilirubin 0.3 mg/dL mg/dL (0.2-1.3) AST 24 U/L U/L (14-36) ALT 26 U/L U/L (4-35) Alkaline Phosphatase 99 U/L U/L (38-126) Total Protein 7.0 g/dL g/dL (6.3-8.2) Albumin 3.8 g/dL g/dL (3.5-5.1) Urine Color Urine Appearance Urine pH Ur Specific [place] Urine Protein Urine Glucose (UA) Urine Ketones Ur Blood (Man) Urine Nitrate Urine Bilirubin Urine Urobilinogen Leukocyte Esterase Rfl Urine RBC Urine WBC Ur Squamous Epith Cells Urine Mucus 06/13/21 00:21 WBC RBC Hgb Hct MCV MCH MCHC RDW Plt Count MPV Immature Gran % (Auto) Neut % (Auto) Lymph % (Auto) [place] % (Auto) Eos % (Auto) Baso % (Auto) Lymph # (Auto) [place] # (Auto) Eos # (Auto) Baso # (Auto) Abs Immat Gran (auto) Absolute Neuts (auto) Absolute Nucleated RBC Nucleated RBC % Sodium Potassium Chloride Carbon Dioxide Anion Gap BUN Creatinine Estim Creat Clear Calc Estimated GFR Glucose Lactic Acid
--- NOTE | 2021-06-13 18:21 | W.PM.PROC2 ---
Procedure Note - Detailed Date of Procedure 06/13/21 Pre-op Diagnosis Left perirectal abscess Post-op Diagnosis same Procedure Performed complex incision and drainage left perirectal abscess, rectal exam under anesthesia Surgeon Kat Owens MD Anesthesia general Indications 30-year-old female with left perirectal abscess, multiloculated, deep Findings left perirectal abscess multiloculated, no obvious fistula tract Description of Procedure The patient was taken to the operating room and placed in the lateral position. After adequate induction of general anesthesia, the patient was prepped and draped in the normal sterile fashion. A time-out was then done to verify the patient's identity, as well as the procedure being performed. I began by doing a digital exam of the rectum. No obvious pathology was noted. I then made an incision over the most fluctuant area of this left perirectal abscess. This was taken through the dermis and into the subcutaneous tissue. This abscess cavity was noted to be quite deep and abutting the levator muscles. Once I encountered the abscess cavity, a large amount of purulent drainage was noted. I then used a hemostat to bluntly dissect around this cavity, which was noted to be multiloculated. Once the cavity was completely drained it measured approximately 9x4x4 cm. I then concurrently did a rectal exam to try to find a fistulous connection, none was noted. Given this, I washed out the cavity with normal saline. I then packed the cavity with 1 in iodoform packing. Sterile dressing was then placed. The patient tolerated the procedure well and was extubated the operating room postop. She was to be sent to the recovery room in stable condition. Estimated Blood Loss 5 Drains No Packing Yes Pathology none sent Complications No immediate complications Condition stable Disposition PACU
[2021-06-13] MEDS: fentaNYL CITRATE INJ (*CRX) 100 MCG/2 ML VIAL 25 MCG IV PUSH ×4 (18:46→19:27)
[2021-06-14] MEDS: HYDROmorphone HCL INJ (*CRX) 1 MG/ML SYR 2 MG IV PUSH (01:55)
[2021-06-14 03:53] VITALS: BP 117/65; PULSE 94; RESP 18; TEMP 37.1; O2SAT 98
[2021-06-14] MEDS: SODIUM CHLORIDE 0.9% IV 1,000 ML 125 ML IV CONT (04:26)
[2021-06-14] MEDS: HYDROcodone/acetaminophen (*CRX) 5-325 MG TABLET 1 TAB PO ×3 (06:35→19:19)
[2021-06-14 07:50] VITALS: BP 110/70; PULSE 73; RESP 14; TEMP 36.3; O2SAT 100
--- NOTE | 2021-06-14 09:36 | WPDANESPN ---
Anes - Prog Note Post-Op Date/Time: 06/14/21 09:36 Cardiovascular status: normal Respiratory status: normal Airway patency: baseline Mental status: baseline Post-Op hydration status: normal Vital Signs: Last Vital Signs Temp 37.1 C 06/14/21 03:53 Pulse 94 06/14/21 03:53 Resp 18 06/14/21 03:53 BP 117/65 06/14/21 03:53 Pulse Ox 98 06/14/21 03:53 Pain Score (VAS): 0 I/O: Intake & Output 06/13/21 06/14/21 06/14/21 23:59 07:59 15:59 Intake Total 1750 1410 Output Total 800 Balance 950 1410 Laboratory Tests 06/12/21 23:38 06/12/21 23:38 Microbiology 06/13/21 00:21 Urine Clean Catch Urine Culture - Final Post-procedural complaints: none Patient Feedback: Patient satisfied with anesthetic care.
--- NOTE | 2021-06-14 10:31 | PM.PNGS ---
Progress Note: A&P Assessment and Plan (1) Abscess, gluteal, left: Code(s): L02.31 - Cutaneous abscess of buttock Status: Acute Assessment and Plan: POD#1 complex I&D with rectal EUA. No obvious fistula tract noted in the OR. Appears adequately drained. Still having some issues with pain. Will add IV Dilaudid for breakthrough pain and [place] as first choice throughout the day. Continue IV abx. Advance to regular diet. Stop IV fluids. Possible discharge tomorrow if pain is better controlled. Additional Plan I have discussed the patient's case and plan of care with Dr. Owens. Subjective Subjective Date/Time Seen: 06/14/21 10:31 Post Op day: 1 (complex I&D left perirectal abscess) Patient reports: still having pain, tolerating liquids well, voiding w/o difficulty, flatus, no bowel movement (since surgery) and afebrile (since 1500 yesterday) Interval history: 30 yo F who presented with a complex perirectal abscess and possible perianal fistula noted on CT. She underwent complex I&D of left perirectal abscess with rectal EUA yesterday by Dr. Owens. Chart reviewed. Patient seen and examined today. She reports having severe pain this morning when packing was removed and sharp pains at the incision. She is tolerating a clear liquid diet this morning. No nausea or vomiting. She has been able to ambulate this morning as well. She feels the pressure pain from the abscess has improved but now has a sharper incisional pain as expected. No other complaints at this time. Review of Systems Review of Systems: All systems reviewed & are unremarkable except as noted in HPI and below Exam Const: General: alert, awake and uncomfortable Orientation/consciousness: patient oriented x3 GI: Other: Perirectal incision noted with packing already removed by nursing, difficult to fully assess the abscess or probe due to patient's severe pain, no flow of purulent fluid noted or able to be expressed. Still a significant amount of induration around incision. Extrem: General: normal to inspection Psych: Mental Status: mental status grossly normal Insight: Good insight present (Psych) Judgement: Good judgement present (Psych) Objective Data Vital Signs Vital Signs: Vital Signs - 24 hr 06/13/21 15:35 06/13/21 18:25 06/13/21 18:40 Temperature 101 F H 98.7 F Pulse Rate 78 80 87 Respiratory Rate 16 18 16 Blood Pressure 114/67 94/62 L 100/74 Pulse Oximetry 97 100 99 06/13/21 18:55 06/13/21 19:10 06/13/21 19:25 Temperature Pulse Rate 87 99 76 Respiratory Rate 16 22 H 20 Blood Pressure 109/68 101/64 101/64 Pulse Oximetry 99 100 98 06/13/21 20:00 06/13/21 20:52 06/13/21 21:56 Temperature 98.8 F 97.9 F 98.5 F Pulse Rate 62 92 69 Respiratory Rate 20 18 18 Blood Pressure 114/69 115/73 101/65 Pulse Oximetry 100 100 100 06/13/21 23:45 06/14/21 03:53 Temperature 98.6 F 98.7 F Pulse Rate 81 94 Respiratory Rate 17 18 Blood Pressure 101/55 L 117/65 Pulse Oximetry 100 98 Intake/Output Intake/Output: Intake & Output 06/11/21 06/12/21 06/13/21 06/14/21 23:59 23:59 23:59 23:59 Intake Total 3900 1410 Output Total 1250 Balance 2650 1410 Meds/Results Medications: Active Medications Generic Name Dose Route Start Last Admin Trade Name Freq PRN Reason Stop Dose Admin Hydrocodone Bitart/Acetaminophen 1 tab 06/13/21 19:33 06/14/21 06:35 Hydrocodone/Acetaminophen (*Crx) 5-325 Mg Tablet PO 1 tab Q4H PRN Administration Pain Rated 4-6 Piperacillin/Tazobactam/Dextrose 3.375 gm in 50 mls @ 100 mls/hr 06/13/21 08:00 06/14/21 08:58 Zosyn 3.375 Gm/D5w 50ml Pm IVPB 100 mls/hr Q6H OSKAR Administration Sodium Chloride 1,000 mls @ 125 mls/hr 06/13/21 02:40 06/14/21 04:26 Normal Saline Iv IV CONT 125 mls/hr .Q8H OSKAR Administration Ondansetron HCl 4 mg 06/13/21 02:39 Ondansetron Inj 4 Mg/2 Ml Vial IV PUSH Q4H PRN Nausea Radiology Results: ITS Impressions Abdom
[2021-06-14] MEDS: HYDROmorphone HCL INJ (*CRX) 1 MG/ML SYR IV PUSH ×3 (11:05→21:04)
[2021-06-14 12:00] VITALS: BP 111/71; PULSE 84; RESP 16; TEMP 36.2; O2SAT 100
[2021-06-14 16:00] VITALS: BP 107/71; PULSE 62; RESP 18; TEMP 36.9; O2SAT 98
[2021-06-14 21:49] VITALS: BP 102/63; PULSE 66; RESP 16; TEMP 37; O2SAT 100
[2021-06-15] MEDS: HYDROcodone/acetaminophen (*CRX) 5-325 MG TABLET 1 TAB PO ×2 (00:10→15:12)
[2021-06-15] MEDS: HYDROmorphone HCL INJ (*CRX) 1 MG/ML SYR IV PUSH ×4 (01:13→12:10)
[2021-06-15 05:47] VITALS: BP 98/61; PULSE 79; RESP 18; TEMP 37; O2SAT 93
[2021-06-15 14:00] VITALS: BP 123/89; PULSE 70; RESP 16; TEMP 37.2; O2SAT 99
--- NOTE | 2021-06-15 16:34 | PM.DS ---
DS: Admitting Diagnosis Discharge Date 06/15/21 Admitting Diagnosis Left perirectal abscess DS: Discharge Diagnosis Discharge Diagnosis (1) Abscess, gluteal, left: Code(s): L02.31 - Cutaneous abscess of buttock Status: Acute Assessment and Plan: 06/13/21 - Incision and drainage of complex left perirectal abscess - by Dr. Owens DS: Summary Hospital Course Reason for hospitalization: The patient is a 30-year-old female who presented to the emergency department complaining of severe left perirectal pain x 1 week. She was reporting subjective fevers and chills, weakness, and poor appetite. Workup in the emergency department, including CT scan, was significant for a large abscess in the left perirectal region. Hospital Course: The patient was admitted and started on broad-spectrum IV antibiotics. She was taken to the OR for I&D of complex perirectal abscess by Dr. Owens on 06/13/21. POD#1 the abscess appeared adequately drained, although she was dealing with poor pain control. She was still having enough perirectal pain that it required IV analgesics. She was kept on IV antibiotics and analgesics as needed for another day. This also allow packing to be placed one more day to facilitate and further drainage. POD#2 she was feeling much better. Her pain was able to be controlled with oral analgesics. Packing was removed, which she no longer requires on discharge. She appeared stable for discharge. She was sent home with oral antibiotics and [place]. Instructions were discussed in detail and all questions were answered. Status at Discharge Functional status at discharge: independent ambulation Overall status at discharge: patient is progressing back to baseline Time Spent with Patient Time attestation: Total time spent providing and/or coordinating discharge services: Time spent: Greater than 30 minutes Exam Const: General: comfortable, no acute distress and alert Nutritional Appearance: thin Orientation/consciousness: patient oriented x3 Skin: Other: Left perirectal abscess packing removed, no purulent drainage, induration and swelling improving. Less tender on exam today. Neuro: General: moves all extremities and no focal motor deficits Extrem: General: normal to inspection and no calf tenderness Psych: Mental Status: mental status grossly normal Insight: Good insight present (Psych) Judgement: Good judgement present (Psych) DS: Data Data Completed and Pending Labs on day of discharge: Labs from last 24 hours 06/13/21 00:21 Urine Color Yellow Urine Appearance Clear Urine pH 6.0 Ur Specific [place] 1.019 Urine Protein Negative Urine Glucose (UA) Negative Urine Ketones Negative Ur Blood (Man) 1+ H Urine Nitrate Negative Urine Bilirubin Negative Urine Urobilinogen Negative Leukocyte Esterase Rfl Trace H Urine RBC 6-10 H Urine WBC 7-9 H Ur Squamous Epith Cells Few Urine Mucus Rare Procedures/Treatments: Procedures Operation Date: 06/13/21 18:30 Actual Procedure Side Surgeon p Complex Incision and Drainage Left Gluteal Abscess Left Kat Owens MD Imaging Radiologist's impression: ITS Impressions Abdomen/Pelvis CT 06/13/21 08:36 IMPRESSION: 1. 7.5 x 2.6 x 2.0 cm subcutaneous abscess at the medial left buttock positioned along the inferior aspect of the gluteal cleft and posterior medial thigh with suggestion of a perianal fistula. Discharge Plan Discharge Attending physician on discharge: Kat Owens Consulting providers: Siva Retana ; Sadaf Summers Discharging Clinician: Sadaf Summers Anticipated Discharge Date/Time: 06/15/21 16:35 Patient Disposition: Home, Self-Care Activity: may shower and as tolerated Diet: regular Wound Care Instructions: change dressing daily Discharge Instructions: Perirectal incision wound care: apply gauze daily and change as needed when soiled. You can stop dressing changes once this is no l
--- NOTE | 2021-06-19 13:30 | PC.NURSE ---
patient called nurses station wanting a work release go back to work later within the week. Patient given surgeons phone number to call Sunday morning to discuss when patient can be released to work.
== END 2021-06-15 20:05 | disposition home or self-care (01) ==
LOC: ANHED 06-13 02:41 → ANH3MEDSUR 06-13 03:01
PROVIDERS: Admitting Provider Surgery; Emergency Provider Emergency Medicine; PCP Physician Assistant; Visit Provider Surgery
PROC: (CPT 46040; principal; 2021-06-13 18:30)
DX: L02.31 Cutaneous abscess of buttock (principal); Z87.891 Personal history of nicotine dependence
CPT/HCPCS: 10061; 36415; 74177; 80053; 81001; 81025; 83605; 85025; 87086; 87088; 96361; 96365; 96366; 96375; 96376; 99285; A9270; G0378; G0379; J1170; J2250; J2270; J2370; J2405; J2543; J2704; J3010; J7030; J7120; Q9967

== ENCOUNTER 2022-01-27 19:22 | Emergency (ER) | payer OTHER, SELFPAY ==
[2022-01-27 19:27] VITALS: BP 132/89; PULSE 94; RESP 18; TEMP 37.1; O2SAT 100
--- NOTE | 2022-01-27 20:01 | ED.WOUNDLAC ---
HPI - Wound/Laceration General Chief Complaint: Wound/Laceration <ADARSH Pantoja Last Filed: 01/28/22 02:34> Stated Complaint: post op complication <ADARSH Pantoja Last Filed: 01/28/22 02:34> Time Seen by Provider: 01/27/22 19:48 <ADARSH Pantoja Last Filed: 01/28/22 02:34> History of Present Illness HPI narrative: Patient is a 31-year-old female with a history of recurrent perirectal abscess here for assistance with her wound packing. Patient had a right perirectal abscess drained at [facility] with Dr. Paulino 3 days ago and had packing placed. She was instructed by her surgeon to remove the packing today. Patient states she was unable to remove the packing completely due to the area and it feeling stuck . She contacted her surgeon who told her to soak in a bath and try again; she was unable to so she presented to the ED. has had continued soreness in the area managed by her pain meds. Denies fevers, chills. <ADARSH Pantoja Last Filed: 01/28/22 02:34> Related Data Home Medications: Home Medications Medication Instructions Recorded Confirmed oxycodone 5 mg tablet tablet 01/27/22 <ADARSH Pantoja Last Filed: 01/28/22 02:34> Allergies/Adverse Reactions: Allergies Allergy/AdvReac Type Severity Reaction Status Date / Time Sulfa (Sulfonamide Allergy Unknown Verified 01/27/22 19:39 Antibiotics) <ADARSH Pantoja Last Filed: 01/28/22 02:34> Review of Systems Review of Systems: Gen.: Denies fevers or chills Eyes: Denies eye pain or visual change ENT: Denies congestion Respiratory: Denies shortness of breath or cough CV: Denies chest pain or palpitations GI: Denies abdominal pain nausea, emesis or diarrhea denies burning, urgency, frequency or hematuria Musculoskeletal: Denies back pain or muscle pain Neuro: Denies numbness, tingling, weakness or focal weakness Skin: Reports wound to right buttock Except as documented, all other systems reviewed and negative <Dionne Sanchez PA-C - Last Filed: 01/28/22 02:34> [facility] Past Medical History Medical History: Medical History Abscess of labia Dentalgia Pilonidal abscess UTI (urinary tract infection) <Dionne Sanchez PA-C - Last Filed: 01/28/22 02:34> Surgical History Surgical History: Surgical History History of incision and drainage Complex i&d left perirectal abscess 06/13/21 <Dionne Sanchez PA-C - Last Filed: 01/28/22 02:34> Family History Family History: Family History Other Diabetes mellitus Hypertension <Dionne Sanchez PA-C - Last Filed: 01/28/22 02:34> Social History Social History: Social History Smoking status: Former smoker Tobacco type: cigarettes Alcohol intake: current Substance use: current Substance use type: marijuana Gender identity (if verbalized by the patient): Female Spiritual care concerns: No <ADARSH Pantoja Last Filed: 01/28/22 02:34> Exam Narrative: Gen: Alert, oriented, no acute distress Eyes: EOMI, no icterus Pulm: Respirations even and unlabored, symmetric thorax expansion, no audible stridor or visible cyanosis CV: Regular rate per telemetry GI: No distension, no voluntary/involuntary guarding Neuro: AOx4, moves all extremities without apparent difficulty or weakness, follows commands Skin: Patient has a open area on her left buttock with wound packing both in the area and hanging out of the wound. Perirectal skin is warm and dry, without fluctuance or induration. Psych: Normal mood/affect, insight/judgement good, adequate fund of knowledge, recent/remote memory intact <Dionne Taveras
[2022-01-27] MEDS: ACETAMINOPHEN 500 MG TABLET 1000 MG PO (20:25)
[2022-01-27] MEDS: IBUPROFEN 400 MG TABLET 800 MG PO (20:25)
== END 2022-01-27 20:35 | disposition home or self-care (01) ==
PROVIDERS: Emergency Provider Preventive Medicine Aerospace Medicine; PCP Physician Assistant
DX: Z48.01 Encounter for change or removal of surgical wound dressing (principal); Z87.440 Personal history of urinary (tract) infections; Z87.891 Personal history of nicotine dependence
CPT/HCPCS: 99282; A9270

== ENCOUNTER 2022-10-02 10:43 | Emergency (ER) | payer OTHER, SELFPAY ==
[2022-10-02 10:48] VITALS: BP 105/67; PULSE 87; RESP 16; TEMP 36.1; O2SAT 100
--- NOTE | 2022-10-02 11:06 | ED.FEMALEGU ---
HPI - Female Genitourinary General Chief complaint: Urogenital-Female Stated complaint: Vaginal Problems Time Seen by Provider: 10/02/22 11:06 Source: patient Mode of arrival: ambulatory Limitations: no limitations History of Present Illness HPI Narrative: Patient is a 31-year-old female that presents with urinary frequency and irritation. Also reports some white discharge and blood with wiping. Reports significant other has been cheating and wants treatment for STDs MD elicited complaint: dysuria Related Data Allergies Allergy/AdvReac Type Severity Reaction Status Date / Time Sulfa (Sulfonamide Allergy Intermediate Itching Verified 10/02/22 11:20 Antibiotics) Review of Systems Review of Systems: All systems reviewed & are unremarkable except as noted in HPI and below Constitutional: Constitutional: Denies chills, Denies fever(s), Denies malaise and Denies weakness Eyes: Eyes: Denies change in vision, Denies eye discharge and Denies irritation ENT: Denies otalgia, Denies headache(s), Denies nasal congestion, Denies nasal discharge, Denies sinus pain and Denies sore throat Cardiovascular: Cardiovascular: Denies chest pain, Denies edema, Denies palpitations and Denies dyspnea Respiratory: Respiratory: Denies cough and Denies dyspnea Gastrointestinal: Gastrointestinal: Denies abdominal pain, Denies diarrhea, Denies nausea and Denies vomiting Genitourinary: Genitourinary: Denies hematuria, Denies urinary frequency, Reports nocturia, Reports dysuria, Denies flank pain, Reports urinary urgency and Reports vaginal discharge Musculoskeletal: Musculoskeletal: Denies back pain and Denies numbness Integumentary/Breasts: Skin/Breast: Denies pruritus and Denies rash Neurologic: Denies headache(s), Denies numbness and Denies weakness Psychiatric: Psychiatric: Reports no additional psychiatric complaints Endocrine: Endocrine: Denies palpitations PMFSH Past Medical History Medical History Abscess of labia Dentalgia Pilonidal abscess UTI (urinary tract infection) Surgical History Surgical History History of incision and drainage Complex i&d left perirectal abscess 06/13/21 Family History Family History Other Diabetes mellitus Hypertension Social History Social History Smoking status: Former smoker Tobacco type: cigarettes Alcohol intake: current Substance use: current Substance use type: marijuana Living arrangements: with family Gender identity (if verbalized by the patient): Female Spiritual care concerns: No Comments At time of signature, agree with nursing past medical, surgical, social and family history. There is no relevant family history pertinent to the presenting complaint. Exam Const: General: cooperative, healthy appearing, comfortable, no acute distress and well nourished Nutritional Appearance: well nourished Orientation/consciousness: patient oriented x3 HENMT: Head: normocephalic and atraumatic Ears: external ears normal Face/Nose/Sinus: Normal external nose present, Normal nares present and normal facial exam Face and sinus: normal facial exam Eyes: General: appearance normal, both eyes and all related structures Pupils: Equal, round and reactive pupils present EOM: EOMs intact bilaterally Neck: Neck: normal visual inspection, full ROM and supple Chest: Chest palpation & inspection: normal inspection of the chest Resp: Effort & Inspection: normal respiratory effort and able to speak in complete sentences Cardio: Rate: regular rate Rhythm: regular rhythm GI: Inspection: normal to inspection GI Palp: No abdominal tenderness and Yes Soft to palpation : General: Yes no CVA tenderness OB/external & speculum: Deferred OB/external & sp
[2022-10-02] MEDS: cefTRIAXone 500 MG, LIDOCAINE HCL 1% LOCAL INJ 1 ML IM (11:31)
== END 2022-10-02 11:54 | disposition home or self-care (01) ==
PROVIDERS: Emergency Provider Nurse Practitioner Family; PCP Physician Assistant
DX: R35.0 Frequency of micturition (principal); N89.8 Other specified noninflammatory disorders of vagina; R30.0 Dysuria; Z87.891 Personal history of nicotine dependence; Z11.3 Encounter for screening for infections with a predominantly sexual mode of transmission
CPT/HCPCS: 81003; 87086; 87088; 87491; 87591; 87661; 96372; 99214; G0463; J0696

== ENCOUNTER 2022-12-30 08:40 | Emergency (ER) | payer OTHER, SELFPAY ==
[2022-12-30 08:41] VITALS: BP 133/86; PULSE 79; RESP 18; TEMP 36.5; O2SAT 100
--- NOTE | 2022-12-30 09:08 | ED.EYEPROB ---
HPI - Eye Problem General Chief complaint: Eye Problems Stated complaint: abcess on R. eye Time Seen by Provider: 12/30/22 08:43 History of Present Illness HPI Narrative: 32-year-old female presents to the emergency department for evaluation of right eye lid swelling. Patient reports approximate 2 weeks ago she had what she states looked like a blackhead and patient did squeeze it. Patient states that over the course of the last 2 weeks she has had increased swelling of the right eyelid. Patient does have history of MRSA. Patient does have an allergy to sulfa. Related Data Allergies Allergy/AdvReac Type Severity Reaction Status Date / Time Sulfa (Sulfonamide Allergy Intermediate Itching Verified 12/30/22 08:53 Antibiotics) Review of Systems Review of Systems: All systems reviewed & are unremarkable except as noted in HPI and below PMFSH Past Medical History Medical History Abscess of labia Dentalgia Pilonidal abscess UTI (urinary tract infection) Surgical History Surgical History History of incision and drainage Complex i&d left perirectal abscess 06/13/21 Family History Family History Other Diabetes mellitus Hypertension Social History Social History Smoking status: Former smoker Tobacco type: cigarettes Alcohol intake: current Substance use: current Substance use type: marijuana Living arrangements: with family Gender identity (if verbalized by the patient): Female Spiritual care concerns: No Exam Narrative: APPEARANCE: Well appearing, no pain, no distress, well-nourished. HEAD: normocephalic, atraumatic. EYES: PERRLA/EOMI, conjunctivae clear. NOSE: Normal no drainage NECK: Supple. No adenopathy, no masses. RESPIRATORY: Airway patent, respirations nonlabored. Clear to auscultation bilaterally, no rales, rhonchi, wheezing. CARDIOVASCULAR: Regular rate and rhythm without murmurs rubs or gallops. ABDOMINAL: Soft, nontender, nondistended, normal bowel sounds MUSCULOSKELETAL: Moves all extremities. Strength/ROM intact, No edema, No calf tenderness. NEURO: Alert. Cranial nerves II through XII intact. Grossly intact SKIN: Cellulitis and edema of right upper eyelid. Bedside ultrasound showed no abscess amenable to drainage Course Course Emergency Course: 32-year-old female presented ED for right eye swelling. Bedside ultrasound of the eyelid showed no abscess amenable to drainage. Patient will be started on clindamycin for suspected cellulitis with a history of MRSA. Patient has no abscess currently amenable to drainage. Patient will be provided follow-up with her primary care physician along with plastics. Patient was educated on the treatment plan and on reasons to return to the emergency room. Vital Signs Vital signs: Vital Signs Temperature 97.7 F 12/30/22 08:41 Pulse Rate 79 12/30/22 08:41 Respiratory Rate 18 12/30/22 08:41 Blood Pressure 133/86 12/30/22 08:41 Pulse Oximetry 100 12/30/22 08:41 Oxygen Delivery Room Air 12/30/22 08:41 Temperature 97.7 F 12/30/22 08:41 Pulse Rate 79 12/30/22 08:41 Respiratory Rate 18 12/30/22 08:41 Blood Pressure 133/86 12/30/22 08:41 Pulse Oximetry 100 12/30/22 08:41 Oxygen Delivery Room Air 12/30/22 08:41 MDM - Eye Problem Differential Diagnosis Differential diagnosis: Likely periorbital cellulitis and other (Cellulitis, abscess, edema) Discharge Plan Discharge Clinical Impression: Cellulitis Patient Disposition: Home, Self-Care Condition: Stable Instructions: Antibiotic Form, Cellulitis (ED), Warm Compress or Soak (ED) Additional Instructions: Antibiotic as directed until completed. Have close follow-up with your primary care physician and
[2022-12-30] MEDS: CLINDAMYCIN HCL 150 MG CAP PO (09:18)
== END 2022-12-30 09:23 | disposition home or self-care (01) ==
PROVIDERS: Emergency Provider Emergency Medicine; PCP Physician Assistant
DX: H00.031 Abscess of right upper eyelid (principal); Z87.891 Personal history of nicotine dependence; Z86.14 Personal history of Methicillin resistant Staphylococcus aureus infection
CPT/HCPCS: 99283; A9270

== ENCOUNTER 2023-06-04 11:26 | Emergency (ER) | payer OTHER, SELFPAY ==
[2023-06-04 11:36] VITALS: BP 119/85; PULSE 71; RESP 16; TEMP 36.6; O2SAT 100
--- NOTE | 2023-06-04 11:57 | ED.FEMALEGU ---
HPI - Female Genitourinary General Chief complaint: Urogenital-Female Stated complaint: Vaginal Problems Time Seen by Provider: 06/04/23 11:58 Source: patient and RN notes reviewed Mode of arrival: ambulatory Limitations: no limitations History of Present Illness HPI Narrative: 32-year-old female presents with concern for dysuria, vaginal irritation, urine frequency, white vaginal discharge. Reports she had low back pain last night. She reports she frequently gets urinary tract infections. She is not concern for sexually transmitted infection. She reports the discharge is been going on for about a month. She denies fever, chills, abdominal pain, nausea, vomiting MD elicited complaint: UTI Related Data Allergies Allergy/AdvReac Type Severity Reaction Status Date / Time Sulfa (Sulfonamide Allergy Intermediate Itching Verified 12/30/22 08:53 Antibiotics) Review of Systems Review of Systems: CONSTITUTIONAL: Denies malaise, chills, sweats, or fever. CARDIOVASCULAR: Denies chest pain, palpitations, or edema. RESPIRATORY: Denies cough or dyspnea. GASTROINTESTINAL: Denies abdominal pain, nausea, vomiting, diarrhea GENITOURINARY: Reports dysuria, frequency, urgency. Denies flank pain or hematuria. Reports white vaginal discharge and vaginal irritation SKIN: Denies rash or itching. MUSCULOSKELETAL: Reports low back pain last night. Denies myalgia. All systems reviewed & are unremarkable except as noted in HPI and below PMFSH Past Medical History Medical History Abscess of labia Dentalgia Pilonidal abscess UTI (urinary tract infection) Surgical History Surgical History History of incision and drainage Complex i&d left perirectal abscess 06/13/21 Family History Family History Other Diabetes mellitus Hypertension Social History Social History Smoking status: Former smoker Tobacco type: cigarettes Alcohol intake: current Substance use: current Substance use type: marijuana Living arrangements: with family Gender identity (if verbalized by the patient): Female Spiritual care concerns: No Comments At time of signature, agree with nursing past medical, surgical, social and family history. There is no relevant family history pertinent to the presenting complaint Exam Narrative: GENERAL: Well-appearing, well-nourished, and in no acute distress. HEAD: Normocephalic. EYES: PERRLA, conjunctivae clear. NECK: Supple. No lymphadenopathy CHEST: Clear to auscultation. No respiratory distress. HEART: Regular rate and rhythm. ABDOMEN: Soft, nontender upon palpation, nondistended, normal active bowel sounds, no palpable or pulsatile masses, no guarding. No CVA tenderness SKIN: Warm, dry, no rash. NEURO: Alert and oriented x3. PSYCH: Normal mood and affect Course Course Emergency Course: Patient is aware of diagnosis, understands and agrees to treatment plan. Anticipatory guidance given. Patient agrees to follow-up as directed and is aware of reasons to seek care at the emergency department. Portions of this record may have been created with voice recognition software Level of Care: Express Care Visit Vital Signs Vital signs: Vital Signs Temperature 97.9 F 06/04/23 11:36 Pulse Rate 71 06/04/23 11:36 Respiratory Rate 16 06/04/23 11:36 Blood Pressure 119/85 06/04/23 11:36 Pulse Oximetry 100 06/04/23 11:36 Oxygen Delivery Room Air 06/04/23 11:36 Temperature 97.9 F 06/04/23 11:36 Pulse Rate 71 06/04/23 11:36 Respiratory Rate 16 06/04/23 11:36 Blood Pressure 119/85 06/04/23 11:36 Pulse Oximetry 100 06/04/23 11:36 Oxygen Delivery Room Air 06/04/23 11:36 Reviewed. MDM - Female Genitourinary MDM Narrative M
== END 2023-06-04 12:10 | disposition home or self-care (01) ==
PROVIDERS: Emergency Provider Nurse Practitioner; PCP Physician Assistant
DX: B37.31 Acute candidiasis of vulva and vagina (principal); N39.0 Urinary tract infection, site not specified; Z87.891 Personal history of nicotine dependence
CPT/HCPCS: 81003; 87086; 87088; 99213; G0463

== ENCOUNTER 2023-06-07 13:14 | Emergency (ER) | payer OTHER, SELFPAY ==
[2023-06-07 13:15] VITALS: BP 123/66; PULSE 83; RESP 20; TEMP 36.2; O2SAT 100
--- NOTE | 2023-06-07 13:35 | ED.FEMALEGU ---
HPI - Female Genitourinary General Chief complaint: Urogenital-Female Stated complaint: yeast infection Time Seen by Provider: 06/07/23 13:20 History of Present Illness HPI Narrative: Patient is a 32-year-old female presenting with dysuria. States that for the last several days she has had urinary frequency as well as burning with urination. States that she has had a thick white vaginal discharge with some itching. She is concerned for a yeast infection. She was seen at urgent care a few days ago and had prescriptions filled and the left them in the car. States that she thinks that her kids threw them away. States she continues to have symptoms and just needs refills on these meds. No abdominal pain, flank pain, fevers or chills denies nausea or vomiting. No further complaints. Related Data Allergies Allergy/AdvReac Type Severity Reaction Status Date / Time Sulfa (Sulfonamide Allergy Intermediate Itching Verified 06/07/23 13:31 Antibiotics) Review of Systems Review of Systems: All systems reviewed & are unremarkable except as noted in HPI and below PMFSH Past Medical History Medical History Abscess of labia Dentalgia Pilonidal abscess UTI (urinary tract infection) Surgical History Surgical History History of incision and drainage Complex i&d left perirectal abscess 06/13/21 Family History Family History Other Diabetes mellitus Hypertension Social History Social History Smoking status: Former smoker Tobacco type: cigarettes Alcohol intake: current Substance use: current Substance use type: marijuana Living arrangements: with family Gender identity (if verbalized by the patient): Female Spiritual care concerns: No Exam Narrative: GENERAL: Well-appearing, well-nourished, and in no acute distress. HEAD: Normocephalic, atraumatic. EYES: PERRLA and EOMI. ENT: Grossly unremarkable NECK: Supple. CHEST: No respiratory distress. HEART: Regular rate and rhythm ABDOMEN: Soft, nontender, nondistended EXTREMITIES: Normal range of motion. SKIN: Warm, dry, no rash. NEURO: Alert and oriented x3. PSYCH: Normal mood and affect. Course Vital Signs Vital signs: Vital Signs Temperature 97.1 F L 06/07/23 13:15 Pulse Rate 83 06/07/23 13:15 Respiratory Rate 20 06/07/23 13:15 Blood Pressure 123/66 06/07/23 13:15 Pulse Oximetry 100 06/07/23 13:15 Oxygen Delivery Room Air 06/07/23 13:15 Temperature 97.1 F L 06/07/23 13:15 Pulse Rate 83 06/07/23 13:15 Respiratory Rate 20 06/07/23 13:15 Blood Pressure 123/66 06/07/23 13:15 Pulse Oximetry 100 06/07/23 13:15 Oxygen Delivery Room Air 06/07/23 13:15 MDM - Female Genitourinary MDM Narrative Medical decision making narrative: 32-year-old female presenting with concerns for UTI and the yeast infection. Vitals are stable. Exam remarkable for the above. Will give a dose of Diflucan and check a urine. UA is unremarkable. No evidence of infection. Patient was given a dose of Diflucan. Denies concerns for STIs. Advised PCP and gynecology follow-up. Appropriate return precautions given. Patient voiced understanding and is agreeable to plan. Discharged in stable condition. Differential Diagnosis Differential diagnosis: Likely urinary tract infection, vaginitis and other (Candidiasis) Medical Records Attestation: I reviewed the patient's medical records. Lab Data Attestation: I reviewed the patient's lab results. Labs: Lab Results 06/07/23 Range/Units 13:37 Urine Color Yellow (Yellow) Urine Appearance Clear (Clear) Urine pH 6.5 (5.0-9.0) Ur Specific [place] 1.024 (1.001-1.035) Urine Protein Negative (Negative) mg/dL Urine Glucose (UA)
[2023-06-07] MEDS: FLUCONAZOLE 150 MG TABLET PO (13:46)
[2023-06-07 13:50] LABS: Appearance Urine Clear (Clear); Bilirubin Urine Negative (Negative); Blood Urine Negative (Negative); Color Urine Yellow (Yellow); Glucose Urine UA Negative (Negative); Ketones Urine Negative (Negative); Leukocyte Esterase Ur Negative LEU/UL (Negative); Nitrate Urine Negative (Negative); Protein Urine Negative (Negative); Specific Grav Ur 1.024 (1.001-1.035); pH Urine 6.5 (5.0-9.0)
[2023-06-07 13:56] LABS: Add Urine Microscopic? NO
== END 2023-06-07 14:43 | disposition home or self-care (01) ==
PROVIDERS: Emergency Provider Emergency Medicine; PCP Physician Assistant
DX: B37.31 Acute candidiasis of vulva and vagina (principal); Z87.440 Personal history of urinary (tract) infections; Z87.891 Personal history of nicotine dependence
CPT/HCPCS: 81003; 99283; A9270

== ENCOUNTER 2024-03-16 23:25 | Emergency (ER) | payer OTHER, SELFPAY ==
[2024-03-16 23:35] VITALS: BP 139/79; PULSE 81; RESP 18; TEMP 36.8; O2SAT 100
[2024-03-17] MEDS: ONDANSETRON INJ 4 MG/2 ML VIAL IV PUSH (01:38)
--- NOTE | 2024-03-17 01:41 | PC.NURSE ---
VORB to give ordered IV fluids at bolus rate.
[2024-03-17 01:42] LABS: Glucose Point of Care 120 mg/dl (65-105)
[2024-03-17] MEDS: DEXTROSE 5%/LACTATED RINGERS 2,000 ML 999 ML IV CONT (01:42)
[2024-03-17 01:47] LABS: Basophils Percent Auto 0.3 % (0.2-1.2); Eosinophils Absolute Auto 0.2 K/mm3 (0-0.3); Eosinophils Percent Auto 1.3 % (0-4.4); Hematocrit 40.3 % (37.0-47.0); Immature Granulocyte Absolute 0.05 K/mm3 (0.00-0.031); Immature Granulocyte Percent A 0.4 % (0-0.5); Lymphocytes Absolute Auto 3.08 K/mm3 (0.9-3.2); Lymphocytes Percent Auto 25.2 % (18.3-44.2); Mean Corpuscular HGB Conc 34.7 g/dl (32-36); Mean Corpuscular Hemoglobin 29.3 pg (26-34); Mean Corpuscular Volume 84.3 fl (80-100); Mean Platelet Volume 10.2 fl (7.4-10.4); Monocytes Absolute Auto 0.8 K/mm3 (0.1-0.6); Monocytes Percent Auto 6.4 % (2.6-8.5); Neutrophils Absolute Auto 8.1 K/mm3 (1.3-6.7); Neutrophils Percent Auto 66.4 % (45.5-73.1); Platelet Count Result 175 k/mm3 (150-375); Red Blood Count 4.78 M/mm3 (4.2-5.4); Red Cell Distribution Width 13.6 % (11.5-14.5); White Blood Count 12.2 K/mm3 (4.5-10.0)
[2024-03-17 01:56] LABS: Alanine Aminotransferase 17 U/L (6-35); Albumin Level 3.8 g/dL (3.5-5.1); Alkaline Phosphatase 68 U/L (38-126); Anion Gap 10 mmol/L (4-12); Aspartate Amino Transferase 22 U/L (14-36); Bilirubin,Total 0.2 mg/dL (0.2-1.3); Blood Urea Nitrogen 8 mg/dL (7-17); Calcium 9.3 mg/dL (8.4-10.2); Carbon Dioxide 25 mmol/L (22-30); Chloride 98 mmol/L (98-107); Estimated CRCL calculation 124 ml/min; Estimated Glomerular Filt Rate > 60; Glucose 116 mg/dL (65-110); Potassium 3.6 mmol/L (3.4-5.0); Sodium 133 mmol/L (137-145)
[2024-03-17 01:59] VITALS: BP 118/77; PULSE 74; RESP 17; O2SAT 100
--- NOTE | 2024-03-17 04:15 | ED.GENADULT ---
HPI - General Adult General Chief complaint: Nausea/Vomiting/Diarrhea Stated complaint: vomiting Time Seen by Provider: 03/17/24 01:22 History of Present Illness HPI narrative: this is a last menstrual period in December presenting with nausea and vomiting in . She has been nauseous vomiting for the last 3 weeks. She has not been taking any medication for her symptoms. She has had hyperemesis gravidarum in all previous pregnancies. Patient denies any fevers lower abdominal pain, vaginal bleeding, gush fluids or urinary symptoms. Related Data Allergies Allergy/AdvReac Type Severity Reaction Status Date / Time Sulfa (Sulfonamide Allergy Intermediate Itching Verified 03/17/24 00:31 Antibiotics) [facility] Past Medical History Medical History Abscess of labia Dentalgia Pilonidal abscess UTI (urinary tract infection) Surgical History Surgical History History of incision and drainage Complex i&d left perirectal abscess 06/13/21 Family History Family History Other Diabetes mellitus Hypertension Social History Social History Smoking status: Former smoker Tobacco type: cigarettes Alcohol intake: current Substance use: current Substance use type: marijuana Living arrangements: with family Gender identity (if verbalized by the patient): Female Spiritual care concerns: No Exam Narrative: APPEARANCE: No apparent distress. Head: atraumatic. EYES: EOMI, NOSE: Atraumatic NECK: Trachea midline RESPIRATORY: No increased rate of breathing CARDIOVASCULAR: RRR, ABDOMINAL: Non-distended, soft nontender no guarding rebound MUSCULOSKELETAl: No obvious deformities NEURO: Alert. Moving 4/4 extremities SKIN:: Warm, dry. Normal color PSYCHIATRIC: Normal affect point of care OB ultrasound showed an intrauterine fetus with normal heart rate. Course Vital Signs Vital signs: Vital Signs Temperature 98.2 F 03/16/24 23:35 Pulse Rate 81 03/16/24 23:35 Respiratory Rate 18 03/16/24 23:35 Blood Pressure 139/79 03/16/24 23:35 Pulse Oximetry 100 03/16/24 23:35 Oxygen Delivery Room Air 03/16/24 23:35 Temperature 98.2 F 03/16/24 23:35 Pulse Rate 74 03/17/24 01:59 Respiratory Rate 17 03/17/24 01:59 Blood Pressure 118/77 03/17/24 01:59 Pulse Oximetry 100 03/17/24 01:59 Oxygen Delivery Room Air 03/16/24 23:35 Medical Decision Making MDM Narrative Medical decision making narrative: -Course: 33-year-old female presenting with nausea vomiting in . Given fluid rehydration antiemetics with improvement. Patient now tolerating p.o..Urine with 6-10 white blood cells. Will be treated as she is . Patient be discharged follow-up with her OBGYN. given prescriptions for antiemetics. Given return precautions. point of care OB ultrasound showed an intrauterine fetus with normal heart rate. -DDX includes but is not limited to: Nausea vomiting of , hyperemesis gravidarum, gastroenteritis -Co-morbidities complicating care: -Independent interpretation of studies: white count 12. HCG 160 K -Interventions: 2 L D5 LR, Zofran -Shared decision making / Disposition: discharged -RX doxylamine, vitamin B6, keflex Vital Signs Vital Signs: Vital Signs Temperature 98.2 F 03/16/24 23:35 Pulse Rate 81 03/16/24 23:35 Respiratory Rate 18 03/16/24 23:35 Blood Pressure 139/79 03/16/24 23:35 Pulse Oximetry 100 03/16/24 23:35 Oxygen Delivery Room Air 03/16/24 23:35 Temperature 98.2 F 03/16/24 23:35 Pulse Rate 74 03/17/24 01:59 Respiratory Rate 17 03/17/24 01:59 Blood Pressure 118/77 03/17/24 01:59 Pulse Oximetry 100 03/17/24 01:59 Oxygen Delivery Room Air 03/16
[2024-03-17 04:18] LABS: Bacteria Urine Rare /hpf; Non Pathogenic Casts 0-2; RBC Urine 0-2 /hpf (0-2); Squamous Epithelial Cell Urine Few /hpf (Few)
[2024-03-17 04:41] LABS: Add Urine Microscopic? NO; Appearance Urine Clear (Clear); Color Urine Yellow (Yellow); Glucose Urine UA 3+ mg/dL (Negative); Protein Urine Negative (Negative); Specific Grav Ur 1.015 (1.001-1.035)
[2024-03-17 04:42] LABS: Bilirubin Urine Negative (Negative); Blood Urine Negative (Negative); Ketones Urine Negative (Negative); Leukocyte Esterase Ur Negative LEU/UL (Negative); Nitrate Urine Negative (Negative)
[2024-03-17 04:45] LABS: Urobilinogen Urine 0.2 mg/dL (<2.0)
[2024-03-17] MEDS: CEPHALEXIN 500 MG CAPSULE PO (04:54)
[2024-03-17 05:01] VITALS: BP 117/74; PULSE 88; RESP 17; O2SAT 100
== END 2024-03-17 05:02 | disposition home or self-care (01) ==
PROVIDERS: Emergency Provider Emergency Medicine; PCP Physician Assistant
DX: O21.0 Mild hyperemesis gravidarum (principal); Z3A.00 Weeks of gestation of pregnancy not specified; O23.40 Unspecified infection of urinary tract in pregnancy, unspecified trimester; N39.0 Urinary tract infection, site not specified
CPT/HCPCS: 36415; 80053; 81003; 82948; 84702; 85025; 87086; 87088; 96361; 96374; 99284; A9270; J2405; J7121

== ENCOUNTER 2024-06-03 17:21 | Emergency (ER) | payer OTHER, SELFPAY ==
[2024-06-03 17:37] VITALS: BP 139/92; PULSE 74; RESP 16; TEMP 36.4; O2SAT 99
[2024-06-03 17:59] LABS: EDUAAPPEAR Clear; EDUABILI Negative (Negative); EDUABLOOD 3+ (Negative); EDUACOLOR1 Yellow; EDUAGLUCOSE Negative (Negative); EDUAKETONE Negative (Negative); EDUALEUKO 1+ (Negative); EDUANITRATE Negative (Negative); EDUAPROTEIN 2+ (Negative); EDUAUROBILI 0.2
--- NOTE | 2024-06-03 18:08 | ED_ITS ---
HPI - General Adult General Chief complaint: Urogenital-Female Stated complaint: POSS UTI Source: patient Mode of arrival: ambulatory Limitations: no limitations History of Present Illness HPI narrative: Patient presents for evaluation of urinary symptoms for last few days. Symptoms include urinary frequency, incomplete emptying, dysuria at the end of urinary strain and some hematuria. She denies any abdominal pain, vaginal bleeding, vaginal discharge, fever, chills. She recently had a miscarriage. She has not had a period since that time. Related Data Home Medications Medication Instructions Recorded Confirmed doxycycline hyclate 100 mg capsule 100 mg PO BID 06/03/24 06/03/24 Allergies Allergy/AdvReac Type Severity Reaction Status Date / Time Sulfa (Sulfonamide Allergy Intermediate Itching Verified 06/03/24 17:25 Antibiotics) Review of Systems Review of Systems: CONSTITUTIONAL: Denies fever, chills, or sweats. EYES: Denies visual changes, redness, or discharge. ENT: Denies rhinorrhea, congestion, sore throat, or otalgia. CARDIOVASCULAR: Denies chest pain, palpitations, or edema. RESPIRATORY: Denies cough or dyspnea. GASTROINTESTINAL: Denies abdominal pain, nausea, vomiting, or diarrhea. GENITOURINARY: Reports urinary frequency, incomplete emptying, dysuria at the end of urinary stream, and hematuria. SKIN: Denies rash or itching. MUSCULOSKELETAL: Denies back pain, joint pain, or myalgia. NEUROLOGIC: Denies headache, numbness, dizziness, or weakness. PSYCHIATRIC: Denies anxiety or depression. [facility] Past Medical History Medical History Abscess of labia Dentalgia Pilonidal abscess UTI (urinary tract infection) Surgical History Surgical History History of incision and drainage Complex i&d left perirectal abscess 06/13/21 Family History Family History Other Diabetes mellitus Hypertension Social History Social History Smoking status: Former smoker Tobacco type: cigarettes Alcohol intake: current Substance use: current Substance use type: marijuana Living arrangements: with family Gender identity (if verbalized by the patient): Female Spiritual care concerns: No Exam Narrative: GENERAL: Well-appearing, well-nourished, and in no acute distress. HEAD: Normocephalic, atraumatic. EYES: PERRLA and EOMI. ENT: Nares clear, no rhinorrhea or epistaxis. Mucous membranes moist. Oropharynx without tonsillar hypertrophy exudate or other lesions. Bilateral TMs pearly rabago nonbulging NECK: Supple. No adenopathy or masses. No carotid bruits or JVD CHEST: Clear to auscultation. No respiratory distress. No wheezes rales or rhonchi HEART: Regular rate and rhythm. No murmur heard. Normal peripheral pulses. ABDOMEN: Soft, nontender, nondistended, normal active bowel sounds. EXTREMITIES: Normal range of motion. No edema. SKIN: Warm, dry, no rash. NEURO: No focal deficits. Alert and oriented x3. PSYCH: Normal mood and affect. Course Course Emergency Course: This is a 33-year-old female who presented for evaluation of urinary symptoms. She does have evidence of a urinary tract infection today. Will treat with Macrobid and Pyridium. She declined test. She is certain that she is not following her miscarriage. She should follow up with her primary provider and go to the ER for worsening symptoms. Pt in agreement with plan of care. Level of Care: Express Care Visit Vital Signs Vital signs: Vital Signs Temperature 36.4 C L 06/03/24 17:37 Pulse Rate 74 06/03/24 17:37 Respiratory Rate 16 06/03/24 17:37 Blood Pressure 139/92 H 06/03/24 17:37 Pulse Oximetry 99 06/03/24 17:37 Oxygen Delivery Room Air 06/03/24 17:37 Temperature 36.4 C L 06/03/24 17:37 Pulse Rate 74 06/03/24 17:37 Respiratory Rate 16 06/03/24 17:37 Blood Pressure 139/92 H 06/03/24 17:37 Pulse Oximetry 99 06/03/24 17:37 Oxygen Delivery Room Air 06/03/24 17:37 Medical Decision Making Vital Signs Vital Signs: Vital Signs Temperature 36.4 C L 06/03/24 17:37 Pulse Rate 74 06/03/24 17:37 Respiratory Rate 16 06/03/24 17:37 Blood Pressure 139/92 H 06/03/24 17:37 Pulse Oximetry 99 06/03/24 17:37 Oxygen Delivery Room Air 06/03/24 17:37 Temperature 36.4 C L 06/03/24 17:37 Pulse Rate 74 06/03/24 17:37 Respiratory Rate 16 06/03/24 17:37 Blood Pressure 139/92 H 06/03/24 17:37 Pulse Oximetry 99 06/03/24 17:37 Oxygen Delivery Room Air 06/03/24 17:37 Lab Data Labs: Lab Results 06/03/24 Range/Units 17:30 POC Urine Color Yellow POC Urine Clarity Clear POC Urine pH 7.0 POC Ur Specif [place] 1.030 POC Urine Protein 2+ (Negative) POC Ur Glucose (UA) Negative (Negative) POC Urine Ketones Negative (Negative) POC Urine Blood 3+ (Negative) POC Urine Nitrite Negative (Negative) POC Urine Bilirubin Negative (Negative) POC Urine Urobilinogen 0.2 POC U Leukocyte Esteras 1+ (Negative) Discharge Plan Discharge Clinical Impression: UTI (urinary tract infection) Patient Disposition: Home, Self-Care Condition: Stable Instructions: Antibiotic Form, Urinary Tract Infection in Women (ED) Patient Language: Lithuanian Prescriptions: New nitrofurantoin monohyd/m-cryst [Macrobid] 100 mg capsule 100 mg PO Q12H 7 Days Qty: 14 0RF Rx Instructions: must administer with a meal/food phenazopyridine [Pyridium] 200 mg tablet 200 mg PO TID Qty: 6 0RF No Action doxycycline hyclate 100 mg capsule 100 mg PO BID Follow-up/Referrals: Román Clark DO [Physician] - Stand Alone Forms: Work/School Release IP Time of Disposition: 18:07
== END 2024-06-03 18:15 | disposition home or self-care (01) ==
PROVIDERS: Emergency Provider Nurse Practitioner
DX: N39.0 Urinary tract infection, site not specified (principal); Z87.891 Personal history of nicotine dependence; F12.90 Cannabis use, unspecified, uncomplicated
CPT/HCPCS: 81003; 87086; 99213; G0463

== ENCOUNTER 2024-06-11 18:31 | Emergency (ER) | payer OTHER, SELFPAY ==
[2024-06-11 18:39] VITALS: BP 124/77; PULSE 86; RESP 19; TEMP 37.2; O2SAT 100
--- NOTE | 2024-06-11 18:39 | ED.URI ---
HPI - URI/Sore Throat General Chief Complaint: Fever Stated Complaint: Fever Time Seen by Provider: 06/11/24 18:42 Source: patient Mode of arrival: ambulatory Limitations: no limitations History of Present Illness HPI Narrative: Jesusita is a 33-year-old female patient presenting to the clinic today with complaints of sore throat, low-grade fever, and nasal congestion that started yesterday. Temperature was as high as 100? F. Reports that daughter was positive for strep a few days ago. MD elicited complaint: sore throat and nasal congestion Related Data Home Medications Medication Instructions Recorded Confirmed No Home Medications 06/11/24 06/11/24 Allergies Allergy/AdvReac Type Severity Reaction Status Date / Time Sulfa (Sulfonamide Allergy Intermediate Itching Verified 06/11/24 18:32 Antibiotics) Review of Systems Review of Systems: Pertinent positives per HPI. Patient denies any fever, chills, rash, headache, visual changes, dizziness, cough, shortness of breath, chest pain, palpitations, nausea, vomiting, diarrhea, constipation, abdominal pain, or any urinary issues. PMFSH Past Medical History Medical History Abscess of labia Dentalgia Pilonidal abscess UTI (urinary tract infection) Surgical History Surgical History History of incision and drainage Complex i&d left perirectal abscess 06/13/21 Family History Family History Other Diabetes mellitus Hypertension Social History Social History Smoking status: Former smoker Tobacco type: cigarettes Alcohol intake: current Substance use: current Substance use type: marijuana Living arrangements: with family Gender identity (if verbalized by the patient): Female Spiritual care concerns: No Comments At the time of my signature, I reviewed and agree with the nursing past medical, surgical, social, and family history. There is no relevant family history pertinent to the patient complaint. Exam Narrative: General: Well-developed, well nourished, in no apparent distress Head: Normocephalic, atraumatic Eyes: Pupils equally round and reactive to light bilaterally, EOM intact, sclera and conjunctive clear, no discharge, lids normal Ears: TMs intact and congested, ear canals clear, no drainage, grossly hearing normal. Nose: Nares patent, clear nasal discharge, no inflammation, no sinus tenderness. Mouth: Oral pharynx red without lesions or masses, good dentition, MMM. Neck: Supple, trachea midline, no enlargement of anterior or posterior cervical nodes, no thyroid masses or goiter palpable. Cardio: Regular rate and rhythm, s1 and s2 normal, no murmur appreciated. Resp: Clear to auscultation bilaterally, no rhonchi, rales, wheezing or rubs Course Course Emergency Course: Portions of this record may have been created with voice recognition software. Level of Care: Express Care Visit Vital Signs Vital signs: Vital Signs Temperature 37.2 C 06/11/24 18:39 Pulse Rate 86 06/11/24 18:39 Respiratory Rate 19 06/11/24 18:39 Blood Pressure 124/77 06/11/24 18:39 Pulse Oximetry 100 06/11/24 18:39 Oxygen Delivery Room Air 06/11/24 18:39 Temperature 37.2 C 06/11/24 18:39 Pulse Rate 86 06/11/24 18:39 Respiratory Rate 19 06/11/24 18:39 Blood Pressure 124/77 06/11/24 18:39 Pulse Oximetry 100 06/11/24 18:39 Oxygen Delivery Room Air 06/11/24 18:39 Vital signs reviewed MDM - URI/Sore Throat MDM Narrative Medical decision making narrative: At the time of visit patient is resting comfortably on the exam table. Patient appears to be nontoxic. Labs: Strep test was obtained and was negative in the clinic today. We will send for culture. Plan: I suspect patient has acute pharyngitis. Supportive measures were discussed with the patient and they voiced understanding discharge instructions and agrees to treatment plan. Return precautions reviewed Differential Diagnosis Differential diagnosis: Likely upper respiratory infection, otitis media, sinusitis, viral infection, bronchitis, influenza, pharyngitis and other (COVID) Lab Data Labs: Lab Results 06/11/24 Range/Units 18:40 POC Grp A Strep Screen Negative (Negative) Discharge Plan Discharge Clinical Impression: Acute pharyngitis Patient Disposition: Home, Self-Care Condition: Stable Instructions: Antibiotic Form, Pharyngitis (ED) Additional Instructions: Strep test is negative in the clinic today. We will send strep for culture if this comes back positive we will contact you in place you on antibiotics at that time. May take DayQuil/NyQuil for cold/flu symptoms Increase fluids and stay well hydrated Tylenol/motrin for pain/fever Flonase and OTC antihistamines as directed Vicks vapor rub to open sinuses Sinus rinses for congestion Cepacol spray, cough drops, throat lozenges, warm tea with honey/lemon, gargle salt water to soothe throat BRAT diet for diarrhea Clear liquids x 24 hours then advance as tolerated for nausea/vomiting Go to the ED if you develop a worsening in your condition- high fever not controlled by Tylenol or Motrin, dehydration, weakness, lethargy, shortness of breath, or chest pain. Follow up with your PCP in 3-5 days if symptoms persist. Prescriptions: No Action No Home Medications Follow-up/Referrals: PHYSICIAN,[employer] [Primary Care Provider] - Time of Disposition: 18:56 Quality NIHSS Nursing Documentation ED NIHSS nursing documentation: reviewed/agree
[2024-06-11 18:54] LABS: EDSTREPNEGPOS1 Negative (Negative)
== END 2024-06-11 19:00 | disposition home or self-care (01) ==
PROVIDERS: Emergency Provider Nurse Practitioner Family
DX: J02.9 Acute pharyngitis, unspecified (principal); Z87.891 Personal history of nicotine dependence; F12.90 Cannabis use, unspecified, uncomplicated
CPT/HCPCS: 87081; 87880; 99213; G0463

== ENCOUNTER 2024-07-21 20:49 | Emergency (ER) | payer OTHER, SELFPAY ==
[2024-07-21 21:06] VITALS: BP 131/82; PULSE 82; RESP 18; TEMP 36.5; O2SAT 100
[2024-07-21 21:21] LABS: Add Urine Microscopic? YES; Appearance Urine Cloudy (Clear); Bacteria Urine None Seen /hpf; Bilirubin Urine Negative (Negative); Blood Urine 3+ (Negative); Color Urine Yellow (Yellow); Glucose Urine UA Negative (Negative); Ketones Urine Trace mg/dL (Negative); Leukocyte Esterase Ur 2+ LEU/UL (Negative); Nitrate Urine Negative (Negative); Non Pathogenic Casts 0-2; Protein Urine 2+ mg/dL (Negative); RBC Urine >100 /hpf (0-2); Specific Grav Ur 1.027 (1.001-1.035); Squamous Epithelial Cell Urine None Seen /hpf (Few); WBC Urine >100 /hpf (0-3)
--- NOTE | 2024-07-21 22:14 | ED.FEMALEGU ---
HPI - Female Genitourinary General Chief complaint: Urogenital-Female Stated complaint: Frequent Urination Time Seen by Provider: 07/21/24 21:53 Source: patient Mode of arrival: ambulatory Limitations: no limitations History of Present Illness HPI Narrative: This is a 33-year-old female who presents to the ED for chief complaint of urinary frequency over the past several days. Denies flank pain, nausea, vomiting, hematuria, dysuria, vaginal symptoms or abdominal pain. Related Data Allergies Allergy/AdvReac Type Severity Reaction Status Date / Time Sulfa (Sulfonamide Allergy Intermediate Itching Verified 06/11/24 18:32 Antibiotics) Review of Systems Review of Systems: All systems as dictated in [facility] Past Medical History Medical History Abscess of labia Dentalgia Pilonidal abscess UTI (urinary tract infection) Surgical History Surgical History History of incision and drainage Complex i&d left perirectal abscess 06/13/21 Family History Family History Other Diabetes mellitus Hypertension Social History Social History Smoking status: Former smoker Tobacco type: cigarettes Alcohol intake: current Substance use: current Substance use type: marijuana Living arrangements: with family Gender identity (if verbalized by the patient): Female Spiritual care concerns: No Exam Narrative: GENERAL: Well-appearing, well-nourished, and in no acute distress. HEAD: Normocephalic, atraumatic. EYES: PERRLA and EOMI. ENT: Nares clear, no rhinorrhea or epistaxis. Mucous membranes moist. Oropharynx without tonsillar hypertrophy exudate or other lesions. NECK: Supple. No adenopathy or masses. CHEST: No respiratory distress. Clear to auscultation. No wheezes rales or rhonchi HEART: Regular rate and rhythm. No murmur heard. Normal peripheral pulses. ABDOMEN: Soft, nontender, nondistended, normal active bowel sounds. Negative flank tenderness bilaterally MSK: Normal range of motion. No edema. SKIN: Warm, dry, no rash. NEURO: Alert and oriented x4. No focal deficits. PSYCH: Normal mood and affect. Course Vital Signs Vital signs: Vital Signs Temperature 97.7 F 07/21/24 21:06 Pulse Rate 82 07/21/24 21:06 Respiratory Rate 18 07/21/24 21:06 Blood Pressure 131/82 07/21/24 21:06 Pulse Oximetry 100 07/21/24 21:06 Oxygen Delivery Room Air 07/21/24 21:06 Temperature 97.9 F 07/21/24 23:00 Pulse Rate 79 07/21/24 23:00 Respiratory Rate 16 07/21/24 23:00 Blood Pressure 100/78 07/21/24 23:00 Pulse Oximetry 98 07/21/24 23:00 Oxygen Delivery Room Air 07/21/24 21:06 MDM - Female Genitourinary MDM Narrative Medical decision making narrative: This is a 33-year-old female who presents to the ED for frequency of urination. Vitals are normal. Exam is benign. No flank pain or tenderness. Urinalysis shows evidence of UTI with 2+ leuk esterase, greater than 100 whites. There is blood on the urinalysis as well, however patient did just start menstrual cycle. No signs of pyelonephritis or nephrolithiasis today. Rx for cephalexin given for acute UTI. Patient will be discharged in stable condition. Supportive measures discussed and return precautions given. Patient is understanding and agreeable with plan for discharge with PCP follow-up. Lab Data Labs: Lab Results 07/21/24 Range/Units 21:10 Urine Color Yellow (Yellow) Urine Appearance Cloudy H (Clear) Urine pH 6.0 (5.0-9.0) Ur Specific [employer] 1.027 (1.001-1.035) Urine Protein 2+ H (Negative) mg/dL Urine Glucose (UA) Negative (Negative) mg/dL Urine Ketones Trace H (Negative) mg/dL Ur Blood (Man) 3+ H (Negative) Urine Nitrate Negative (Negative) Urine Bilirubin Negative (Negative) Urine Urobilinogen 1.0 (<2.0) mg/dL Leukocyte Esterase Rfl 2+ H (Negative) ROS/UL Urine RBC >100 H (0-2) /hpf Urine WBC >100 H (0-3) /hpf Ur Squamous Epith Cells None seen (Few) /hpf Urine Bacteria None seen /hpf Urine Casts 0-2 Discharge Plan Discharge Clinical Impression: Urinary tract infection Patient Disposition: Home, Self-Care Condition: Stable Instructions: Antibiotic Form, Urinary Tract Infection in Women (ED) Additional Instructions: Your exam today is showing evidence of UTI. Please take antibiotics as prescribed. Follow-up with PCP on this. If you have any new or worsening symptoms please return to the ER for further evaluation. Patient Language: Vietnamese Prescriptions: New cephalexin 500 mg capsule 500 mg PO Q8H 7 Days Qty: 21 0RF Follow-up/Referrals: PHYSICIAN NOT ON STAFF,NONSTAFF [Primary Care Provider] - Stand Alone Forms: Work/School Release IP Time of Disposition: 22:17
[2024-07-21] MEDS: CEPHALEXIN 500 MG CAPSULE PO (22:25)
[2024-07-21 23:00] VITALS: BP 100/78; PULSE 79; RESP 16; TEMP 36.6; O2SAT 98
--- OUTSIDE RECORDS SUMMARY | 2024-07-28 06:38 | XMS_ITS | Continuity of Care Document ---
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 Plan of Treatment Reminders Order Date Submit Date Provider Last Modified By Organization Details Last Modified Time Details Appointments None recorded. Lab pap, IG + reflex HPV 2024 025 CORNEL [facility], [address] [place] [address], [address], [place], [address], 5 11:34:54 urinalysis , dipstick 2024 025 CORNEL In-Office Order, Internal Use Only DO Not Attach Compendium DO Not Attach Compendium, Do Not Delete/merge, [id number] 5 14:46:41 test, urine 2024 025 CORNEL In-Office Order, Internal Use Only DO Not Attach Compendium DO Not Attach Compendium, Do Not Delete/merge, [id number] 5 14:46:52 vaginal pathogens panel, SHADY+probe, vaginal fluid 2024 025 CORNEL [facility], [address] [place] [address], [address], [place], [address], 5 07:07:49 Referral None recorded. Procedures None recorded. Surgeries None recorded. Imaging None recorded. Medication Orders None recorded. Patient TargetsNo targets recorded. Patient Instructions Encounter Date Encounter Id Patient Instructions Last Modified By Organization Details Last Modified Time 07/17/2024 [id number] A healthy lifestyle: care instructions [email or web address] Not available 07/17/2024 14:43:54 Reason for Referral None Reported. Results Created Date Observation Date Name Description Value Unit Range Abnormal Flag Note LastModifiedBy Organization Detail LastModifiedTime 07/17/1907/17/2024 urina lysis , dipst ick Leukocytes Modera te Not Available In-Office Order Internal Use Only DO Not Attach Compendium DO Not Attach Compendium, Do Not Delete/merge, 07/17/2024 14:35:39 07/17/19 25 07/17/2024 urina lysis , dipst ick Nitrite negati ve Not Available In-Office Order Internal Use Only DO Not Attach Compendium DO Not Attach Compendium, Do Not Delete/merge, 07/17/2024 14:35:39 07/17/1907/17/2024 urina lysis , dipst ick Urobilinogen 2 Not Available In-Of fice Order Internal Use Only DO Not Attach Compendium DO Not Attach Compendium, Do Not Delete/merge, 07/17/2024 14:35:39 07/17/1907/17/2024 urina lysis , dipst ick Protein 30 Not Available In-Office Order Internal Use Only DO Not Attach Compendium DO Not Attach Compendium, Do Not Delete/merge, 07/17/2024 14:35:39 07/17/1907/17/2024 urina lysis , dipst ick pH 7.5 Not Available In-Office Order Internal Use Only DO Not Attach Compendium DO Not Attach Compendium, Do Not Delete/merge, 07/17/2024 14:35:39 07/17/19 25 07/17/2024 urina lysis , dipst ick Blood Large Not Available In-Office Order Internal Use Only DO Not Attach Compendium DO Not Attach Compendium, Do Not Delete/merge, 07/17/2024 14:35:39 07/17/19 25 07/17/2024 urina lysis , dipst ick Specific Harrington 1.020 Not Available In-Off ice Order Internal Use Only DO Not Attach Compendium DO Not Attach Compendium, Do Not Delete/merge, 07/17/2024 14:35:39 07/17/1907/17/2024 urina lysis , dipst ick Ketone Trace Not Available In-Office Order Internal Use Only DO Not Attach Compendium DO Not Attach Compendium, Do Not Delete/merge, 07/17/2024 14:35:39 07/17/1907/17/2024 urina lysis , dipst ick Bilirubin Negati ve Not Available In-Office Order Internal Use Only DO Not Attach Compendium DO Not Attach Compendium, Do Not Delete/merge, 07/17/2024 14:35:39 07/17/1907/17/2024 urina lysis , dipst ick Glucose Negati ve Not Available In-Office Order Internal Use Only DO Not Attach Compendium DO Not Attach Compendium, Do Not Delete/merge, 07/17/2024 14:35:39 07/17/1907/17/2024 urina lysis , dipst ick Appearance Clear Not Available In-Offi ce Order Internal Use Only DO Not Attach Compendium DO Not Attach Compendium, Do Not Delete/merge, 07/17/2024 14:35:39 07/17/1907/17/2024 urina lysis , dipst ick Color Dark Yellow Not Available In-Office Order Internal Use Only DO Not Attach Compendium DO Not Attach Compendium, Do Not Delete/merge, 07/17/2024 14:35:39 07/17/1907/17/2024 pregn tima test, urine HCG negati ve Not Available In-Office Order Internal Use Only DO Not Attach Compendium DO Not Attach Compendium, Do Not Delete/merge, 07/17/2024 14:35:40 Result Notes None recorded. Problems Name Problem SNOMED Code Status Onset Date Resolution Date Notes Provider Name and Address Organization Details Recorded Time Anogenital hidradenitis suppurativa 509755906 Active 2023 MATTY ASENCIO Attn: Daryl g,[address] [place], [address], [facility] 4 12:10:00 Problem Notes None recorded. Procedures Surgical History Date Name Laterality Status Provider Name and Address Organization Details Recorded Time 07/16/2018 Date of Last Pap Smear completed Emilie Pollack [facility] 10/06/2021 12:29:10 Imaging Results None recorded. Procedure Notes None recorded. Medical Equipment None Reported. Allergies Allergen ID Allergen Name Allergen Category Reaction Reaction Severity Criticality Documentation Date Start Date Code Code System Note Provider Name and Address Organization Details Recorded Time 337344 Substance with sulfonami de structure and antibacte rial mechanism of action (substanc e) medicatio n Not available Not available Not available 02/16/2022 [id number] SNOMED Rosaura Gutierrez MA [facility], [facility] 2 12:23:35 Medications Name Sig Start Date Stop Date Status Note LastModified by Organization Details LastModified Time doxycycline hyclate 100 mg capsule TAKE 1 CAPSULE BY MOUTH 2 (TWO) TIMES A DAY TAKE WITH A FULL MEAL AND A GLASS OF WATER active Not Available Not Available No t Available Vitamin B-6 25 mg tablet TAKE 1 TABLET BY MOUTH EVERY DAY active Not Available Not Available No t Available ibuprofen 800 mg tablet TAKE 1 TABLET BY MOUTH THREE TIMES A DAY NEEDED FOR PAIN 10/06 completed Not Available Not Available Not Available Lidocaine Viscous 2 % mucosal solution TAKE 2.5ML BY MOUTH 3 TIMES DAILY NEEDED FOR PAIN 10/06 completed Not Available Not Available Not Available fluconazole 150 mg tablet PLEASE SEE ATTACHED FOR DETAILED DIRECTION S 08/06 completed Not Available Not Available Not Available hydrocodone 5 mg-acetamin ophen 325 mg tablet 10/06 completed Not Available Not Available Not Available fluconazole 200 mg tablet TAKE 1 TABLET TODAY, 1 TABLET IN 3 DAYS, 1 TABLET IN 3 DAYS, 1 TABLET IN 3 DAYS 08/06 completed Not Available Not Available Not Available phenazopyri dine 200 mg tablet active Not Available Not Available Not Available metronidazo le 0.75 % (37.5 mg/5 gram) vaginal gel Insert 1 applicato rful every day by vaginal route. 11/18 completed Not Available Not Available Not Available Tubersol 5 tub. unit/0.1 mL intradermal injection solution Administe r .1ml interderm ally 10/14/ 2024 active Not Available Not Available Not Avai lable clindamycin HCl 150 mg capsule TAKE 1 CAPSULE BY MOUTH EVERY 6 HOURS FOR 10 DAYS 08/06 completed Not Available Not Available Not Available penicillin V potassium 500 mg tablet TAKE 1 TABLET BY MOUTH EVERY 12 HOURS FOR 10 DAYS 05/04 completed Not Available Not Available Not Available metronidazo le 500 mg tablet Take 1 tablet every 12 hours by oral route with meals for 7 days. active Not Available Not Available No t Available tretinoin 0.05 % topical cream APPLY TOPICALLY NIGHTLY TO FACE active Not Available Not Available No t Available doxycycline monohydrate 100 mg tablet TAKE 1 TABLET BY MOUTH TWICE A DAY active Not Available Not Available No t Available amoxicillin 400 mg-potassiu m clavulanate 57 mg/5 mL oral suspension 07/26 completed Not Available Not Available Not Available terbinafine HCl 250 mg tablet TAKE 1 TABLET EVERY DAY BY ORAL ROUTE FOR 30 DAYS. 10/06 completed Not Available Not Available Not Available cephalexin 500 mg capsule active Not Available Not Available Not Available ibuprofen 600 mg tablet TAKE 600 MG (1 TABLET ) BY MOUTH THREE TIMES DAILY NEEDED FOR PAIN 10/06 completed Not Available Not Available Not Available doxycycline hyclate 100 mg tablet TAKE 1 TABLET BY MOUTH TWICE A DAY FOR 7 DAYS 05/04 completed Not Available Not Available Not Available amoxicillin 875 mg-potassiu m clavulanate 125 mg tablet TAKE 1 TABLET BY MOUTH EVERY 12 HOURS FOR 10 DAYS 08/06 completed Not Available Not Available Not Available amoxicillin 500 mg-potassiu m clavulanate 125 mg tablet Take 1 tablet every 12 hours by oral route for 7 days. 07/26 completed Not Available Not Available Not Available oxycodone 5 mg tablet TAKE 1 TABLET BY MOUTH EVERY 4 HOURS NEEDED FOR PAIN 02/16 completed Not Available Not Available Not Available clindamycin 1 % lotion APPLY TO AFFECTED AREA TOPICALLY EVERY DAY active Not Available Not Available No t Available azithromyci n 500 mg tablet TAKE 2 TABLETS WITH FOOD X1 DAY 06/07 completed Not Available Not Available Not Available minocycline 75 mg tablet TAKE 1 TABLET BY MOUTH EVERY DAY 08/06 completed Not Available Not Available Not Available nitrofurant oin monohydrate /macrocryst als 100 mg capsule Take 1 capsule every 12 hours by oral route for 5 days. active Not Available Not Available No t Available chlorhexidi ne gluconate 0.12 % mouthwash 10/06 completed Not Available Not Available Not Available Vitals Date Recorded Body height Body mass index (BMI) Body weight Heart rate Respiratory rate Oxygen saturation Oxygen saturation in Arterial blood by Pulse oximetry Systolic blood pressure Diastolic blood pressure Provider Name and Address Organization Details Last Updated DateTime 5 165.1 cm 34.4 kg/m2 71063.6 2 g 89 /min 16 /min 97 % 97 % 128 mm[Hg] 84 mm[Hg] Tiff Moody MA [facility] 5 14:04:46 Social History Question Answer Notes LastModified by Organizat ion Details LastModified Time Tobacco Smoking Status Former Smoker Marijuana , light smoker Nishant Tiwari MA null, [place] - [facility] 11/30/2021 14:58:30 Do You Have An Advance Directive? No Information not available 07/26/2021 What Is Your Level Of Alcohol Consumption? None Information not available 10/07/2019 Are You Blind Or Do You Have Difficulty Seeing? No Information not available 07/26/2021 What Is Your Level Of Caffeine Consumption? None Information not available 10/07/2019 In The 14 Days Before Symptom Onset, Have You Had Close Contact With A Laboratory-confir med COVID-19 While That Case Was Ill? No Information not available 07/26/2021 In The 14 Days Before Symptom Onset, Have You Had Close Contact With A Person Who Is Under Investigation For COVID-19 While That Person Was Ill? No Information not available 07/26/2021 Have You Been To An Area Known To Be High Risk For COVID-19? No Information not available 07/26/2021 Are You Currently Employed? No Information not available 10/07/2019 Are You Deaf Or Do You Have Serious Difficulty Hearing? No Information not available 07/26/2021 What Type Of Diet Are You Following? REGULAR Information not available 10/07/2019 Do You Or Have You Ever Used E-cigarettes Or Vape? 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 No Information not available 07/26/2021 Hard Of Hearing Or Deaf In One Or Both Ears? No Information not available 10/07/2019 Legally Blind In One Or Both Eyes? No Information no t available 10/07/2019 Live Alone Or With Others? With Others Information not available 10/07/2019 Do You Have A High School Diploma Or Higher Education? Yes Information not available 07/26/2021 Do You Sometimes Have To Miss Your Medical Appointments Due To Difficult Getting Transportation? No Information not available 07/26/2021 Do You Feel Unfairly Treated Due To Things Such As Race, Age, Gender, Disability Or Some Other Reason? No Information not available 07/26/2021 Do You Feel Physically And Emotionally Safe While Living At Home? Yes Information not available 07/26/2021 Do You Feel Physically And Emotionally Safe In Your Neighborhood Or Other Public Places? Yes Information not available 07/26/2021 Do You Have A Medical Power Of Advertising Account Representative? No Information not available 12/06/2021 What Was The Date Of Your Most Recent Tobacco Screening? 07/17/2024 [email or web address] Information not available 07/17/2024 How Many Children Do You Have? 4 Information not available 10/07/2019 What Is Your Current Pack Years? [email or web address] Information not available 11/30/2021 What Is Your Relationship Status? Single Information not available 11/30/2021 Do You Use Your Seat Belt Or Car Seat Routinely? Yes Information not available 07/26/2021 Are You Sexually Active? Yes Information not available 11/30/2021 Smoke Alarm In Home Yes Information not available 10/07/2019 Do You Have Smoke And Carbon Monoxide Detectors In Your Home? Yes Information not available 07/26/2021 At What Age Did You Start Smoking Tobacco? 18 Information not available 02/23/2022 Are You Passively Exposed To Smoke? Yes Information no t available 10/07/2019 Do You Or Have You Ever Used Smokeless Tobacco? Never Used Smokeless Tobacco Information not available 10/07/2019 How Much Tobacco Do You Smoke? 1 PPW [email or web address] Information not available 12/30/2019 Do You Feel Stressed (tense, Restless, Nervous, Or Anxious, Or Unable To Sleep At Night)? [id number] Information not available 07/26/2021 Do You Use Any Illicit Or Recreational Drugs? Yes Information not available 07/26/2021 Do You Use Sunscreen Routinely? No Information not available 07/26/2021 Has Tobacco Cessation Counseling Been Provided? Yes [email or web address] Information not available 07/17/2024 On What Date Was Tobacco Cessation Counseling Provided? 07/17/2024 [email or web address] Information not available 07/17/2024 How Many Years Have You Smoked Tobacco? 1 Information not available 02/23/2022 Do You Or Have You Ever Used Any Other Forms Of Tobacco Or Nicotine? No Information not available 07/26/2021 Sex: Female Functional Status Question Answer Note LastModified by Organizat ion Details LastModified Time Are you able to care for yourself? Yes Information not available 10/07/2019 What is your exercise level? Occasional Information not available 10/07/2019 Mental Status None recorded. Family History Relationship Description Onset Age of this Age Resolved Age Notes LastModified by Organization Details LastModified Time Father Diabetes mellitus [email or web address] Not available 2024 14:16:29 Father Hypertensive disorder [email or web address] Not available 2024 14:16:37 Father Intracranial aneurysm [email or web address] Not available 2024 14:16:57 Mother Hypertensive disorder [email or web address] Not available 2024 14:17:06 Medical History Condition Response Coronary Artery Disease N Other N Atrial Fibrillation N High Blood Pressure N Thyroid Problems N Kidney or Bladder Problems N Depression N COPD N Blood Clots N GI Problems N Skin Problems N Anemia N Heart Attack (ID) N Diabetes N Anxiety Disorder N Muscle, Joint, or Bone Problems N Seizures/Epilepsy N Arthritis N Acid Reflux (GERD) N Cancer N Stroke N Allergies N Asthma N High Cholesterol N Hepatitis N Liver Disease N Headaches N Hypertension N Osteoporosis N Heart Failure N Gynecological History Statement/Question Response Flow Moderate Date of LMP 11/28/2023 Frequency of Cycle (Q days) 28 Menses Monthly Y Date of Last Pap Smear 07/16/2018 Duration of Flow (days) 4 Age at Menarche 7 Current Control Method None Age at First Child 15 LMP Approximate Obstetrics History GPAL:G 7 P 4 0 3 4 Type Value Full Term 4 Induced 3 Living 4 Total 7 Immunizations Vaccine Type Date Status Note Provider Nam e and Address Organization Details Recorded Time COVID-19, mRNA, LNP-S, PF, 30 mcg/0.3 mL dose 12/19/2021 completed Emilie power [place] - [facility] 05/26/2024 17:15:24 COVID-19, mRNA, LNP-S, PF, 30 mcg/0.3 mL dose 01/10/2022 completed Emilie power [place] - [facility] 05/26/2024 17:15:24 Past Encounters Encounter ID Performer Location Encounter Start Date Encounter Closed Date Diagnosis/Indication Diagnosis SNOMED-CT Code Diagnosis ICD10 Code Diagnosis Note [id number] MATTY ASENC[facility] [address] [place] [address] 07/17/2024 14:00:22 07/17/2024 14:49:26 Gynecologic examination 75255965 Z01.419 Pap obtainedCB E performedB reast education providedr/ o since no period since November- does have spottingab ortion 03/26/24 at 16 weeks Anogenital hidradenitis suppurativa 078877262 L73.2 patient doing well s/p I&D and debridemen t of anal abscess 12/2021. She is on penitentiary doxy and does not wish to be on it. - recommend bleach baths 1-2x per week. dilute 1/8 cup in a tub full of water and soak- apply hibiclens- glycolic acid may also help on external boils Obesity 885584017 E66.9 Health Concerns Section Related Observation LastModified by Organization Detai ls LastModified Time None Recorded Concern Status LastModified by Organization Details LastModified Time None Recorded Payers Encounter Date Sequence Insurance Name Policy Number Policy Mina Covered Member ID Mina Member ID Guarantor Name 07/17/2024 1 [employer] BET[employer] [place] - DOS ON OR AFTER 2020 (MEDICAID REPLACEMENT - HMO) Martina Chatterjee [id number] Martina Chatterjee Notes Date Note Type Note Provider Name and Address Organization Details Recorded Time 07/17/2024 text/html Martina is here for papPatient had at 4 months on 03/26/24. no complications. She has had spotting since that time. She has anoGU hydradenitis and on penitentiary doxycycline. She does not want to take it any more. LMP: [id number] Pap: 2019?Contraception :STI hx:Fam hx: breast, cervical, uterine, ovarian cancers MATTY ASENCIO Attn: Accounting,[address] [place], [address], [facility] 07/17/2024 14:45:27 OBGyn Episode No OBEpisode recorded.
--- OUTSIDE RECORDS SUMMARY | 2024-07-28 06:38 | XMS_ITS | Data Portability ---
Author Organization [facility] Address [address] [place] [address] Care Team Providers Care Membership Director Name Role Phone ELYARA BROOKS Primary Care Provider Assessment No assessment recorded. Plan of Treatment Reminders Order Date Submit Date Provider Last Modified By Organization Details Last Modified Time Details Appointments None recorded. Lab vaginal pathogens panel, SHADY+probe , vaginal fluid 2023 024 brea [facility], [address] [place] [address], [address], [place], [address], 4 15:25:48 culture, urine 2023 024 CORNEL [facility], [address] [place] [address], [address], [place], [address], 4 03:37:16 PPD (purified protein derivativ e), skin test 2023 024 CORNEL In-Office Order, Internal Use Only DO Not Attach Compendium DO Not Attach Compendium, Do Not Delete/merge, [id number] 4 18:05:23 pap, IG + reflex HPV 2024 025 CORNEL [facility], [address] [place] [address], [address], [place], [address], 5 11:34:54 urinalysi s, dipstick 2024 025 CORNEL In-Office Order, Internal Use Only DO Not Attach Compendium DO Not Attach Compendium, Do Not Delete/merge, [id number] 5 14:46:41 test, urine 2024 025 CALLAHAN In-Office Order, Internal Use Only DO Not Attach Compendium DO Not Attach Compendium, Do Not Delete/merge, [id number] 5 14:46:52 vaginal pathogens panel, SHADY+probe , vaginal fluid 2024 025 CALLAHAN [facility], [address] [facility], [address], [place], [address], 07:07:49 Referral dermatolo gist referral - anogenita l hidradeni tis 2023 024 [email or web address] Sania Newberry MD (Dermatology) , [address], [facility], [place], [address], 10:43:39 Procedures None recorded. Surgeries None recorded. Imaging None recorded. Medication Orders doxycycli ne monohydra te 100 mg tablet 2023 024 CALLAHAN [id number], [address] [place], [address], 12:10:26 Tubersol 5 tub. unit/0.1 mL intraderm al injection solution 2023 024 [email or web address] Not available 17:35:07 Patient TargetsNo targets recorded. 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 Referral for A nogenital hidradenitis suppurativa anogenital hidradenitis Referring Physician: Yara Rodriguez, Ware Server, Encounter Date: 08/06/2023 Results Created Date Observation Date Name Description Value Unit Range Abnormal Flag Note LastModifiedBy Organization Detail LastModifiedTime 08/23/19 24 08/25/2023 URINE CULTU RE, ROUTI NE urine culture, routine Final report Not Available [facility] ([facility]) [address] [facility], [place], [address], 08/25/2023 03:37:16 08/23/19 24 08/25/2023 URINE CULTU RE, ROUTI NE result 1 No growth Not Available [facility] ([facility]) [address] [facility], [place], [address], 08/25/2023 03:37:16 04/30/20 24 04/30/2024 PPD (jace fied prote in deriv ative ), skin test Result Negati ve Not Available In-Office Order Internal Use Only DO Not Attach Compendium DO Not Attach Compendium, Do Not Delete/merge, [id number] 04/28/2024 17:19:55 07/17/1907/20/2024 NUSWA B VAGIN ITIS PLUS (VG+) atopobium vaginae HIGH - 2 score abnormal Not Available [facility] ([facility]) [address] [facility], [place], [address], 07/21/2024 07:07:49 07/17/19 25 07/20/2024 NUSWA B VAGIN ITIS PLUS (VG+) bvab 2 HIGH - 2 score abnormal Not Available [facility] ([facility]) [address] [place], [address], 07/21/2024 07:07:49 07/17/19 25 07/20/2024 NUSWA B VAGIN ITIS PLUS (VG+) megasphaera 1 HIGH - 2 score abnormal Calcu late total score by murtaza gee the 3 indiv idual bacte rial vagin osis (BV) marke r score s toget her. Total score is inter prete d as follo ws: Total score 0-1: Indic ates the absen ce of BV. Total score 2: Indet ermin ate for BV. Addit ional clini john data shoul d be evalu ated to estab rena a diagn osis. Total score 3-6: Indic ates the prese nce of BV. Not Available [facility] ([facility]) [address] [facility], [place], [address], 07/21/2024 07:07:49 07/17/19 25 07/20/2024 NUSWA B VAGIN ITIS PLUS (VG+) rabia albicans, SHADY NEGATI VE negati ve Not Available [facility] ([facility]) [address] [facility], [place], [address], 07/21/2024 07:07:49 07/17/19 25 07/20/2024 NUSWA B VAGIN ITIS PLUS (VG+) rabia glabrata, SHADY NEGATI VE negati ve Not Available [facility] ([facility]) [address] [facility], [place], [address], 07/21/2024 07:07:49 07/17/19 25 07/21/2024 NUSWA B VAGIN ITIS PLUS (VG+) trich vag by SHADY POSITI VE negati ve abnormal Not Available [facility] ([facility]) [address] [place], [address], 07/21/2024 07:07:49 07/17/19 25 07/21/2024 NUSWA B VAGIN ITIS PLUS (VG+) chlamydia trachomatis, SHADY NEGATI VE negati ve Not Available [facility] ([facility]) [address] [place], [address], 07/21/2024 07:07:49 07/17/19 25 07/21/2024 NUSWA B VAGIN ITIS PLUS (VG+) neisseria gonorrhoeae, SHADY NEGATI VE negati ve Not Available [facility] ([facility]) [address] [facility], [place], [address], 07/21/2024 07:07:49 07/17/19 25 07/18/2024 IGP,A PTIMA HPV,A GE GDLN age gdln acog testing 30-65 Not Available [facility] ([facility]) [address] [facility], [place], [address], 07/22/2024 11:34:54 07/17/19 25 07/22/2024 IGP, APTIM A HPV, RFX 16/18 ,45 diagnosis: Chase FOSTER IVE FOR INTRA EPITH ELIAL LESIO N OR NOVA JAIME . TRICH OMONA S VAGIN APURVA IS PRESE NT. CELLU CHELSY THOMPSON ES ASSOC IATED WITH INFLA MMATI ON ARE PRESE NT. Not Available [facility] ([facility]) [address] [facility], [place], [address], 07/22/2024 11:34:55 07/17/19 25 07/22/2024 IGP, APTIM A HPV, RFX 16/18 ,45 specimen adequacy: Chase barnes Satis facto ry for evalu ation . Endoc ervic al and/o r squam ous metap lasti c cells (endo cervi john compo nent) are prese nt. Not Available [facility] ([facility]) [address] [facility], [place], [address], 07/22/2024 11:34:55 07/17/19 25 07/22/2024 IGP, APTIM A HPV, RFX 16/18 ,45 clinician provided ICD10: Chase barnes Z01.4 19 Not Available [facility] ([facility]) [address] [facility], [place], [address], 07/22/2024 11:34:55 07/17/19 25 07/22/2024 IGP, APTIM A HPV, RFX 16/18 ,45 performed by: Chase Thrasher er, Cytot echno logis t (ASCP ) Not Available [facility] ([facility]) [address] [facility], [place], [address], 07/22/2024 11:34:55 07/17/19 25 07/22/2024 IGP, APTIM A HPV, RFX 16/18 ,45 . . Not Available [facility] ([facility]) [address] [facility], [place], [address], 07/22/2024 11:34:55 07/17/19 25 07/22/2024 IGP, APTIM A HPV, RFX 16/18 ,45 note: Commen t The Pap smear is a scree alvin test desig alexandria to aid in the detec tion of barrett ligna nt and malig nant condi tions of the uteri ne cervi x. It is not a diagn ostic proce dure and shoul d not be used as the sole means of detec ting cervi john cance r. Both false -posi tive and false -nega tive repor ts do occur . Not Available [facility] ([facility]) [address] [facility], [place], [address], 07/22/2024 11:34:55 07/17/19 25 07/22/2024 IGP, APTIM A HPV, RFX 16/18 ,45 test methodology: - The Thin Prep( R) Image r was unabl e to read this speci men. There fore a manua l revie w was perfo rmed. Not Available [facility] ([facility]) [address] [facility], [place], [address], 07/22/2024 11:34:55 07/17/19 25 07/22/2024 IGP, APTIM A HPV, RFX 16/18 ,45 HPV aptima Negati ve negati ve This nucle ic acid ampli ficat ion test detec ts fourt een high- risk HPV types (16,1 8,31, 33,35 ,39,4 5,51, 52,56 ,58,5 9,66, 68) witho ut diffe renti ation . Not Available [facility] ([facility]) [address], [place], [address], 07/22/2024 11:34:55 07/17/1907/22/2024 IGP, APTIM A HPV, RFX 16/18 ,45 HPV genotype reflex Commen t Crite abiel not met, HPV Genot ype not perfo rmed. Not Available [facility] ([facility]) [address] [facility], [place], [address], 07/22/2024 11:34:55 07/17/1907/17/2024 urina lysis , dipst ick Leukocytes Modera te Not Available In-Office Order Internal Use Only DO Not Attach Compendium DO Not Attach Compendium, Do Not Delete/merge, 07/17/2024 14:35:39 07/17/1907/17/2024 urina lysis , dipst ick Nitrite negati [...] 07/17/2024 urina lysis , dipst ick Specific Gillett 1.020 Not Available In-Off ice Order Internal Use Only DO Not Attach Compendium DO Not Attach Compendium, Do Not Delete/merge, 07/17/2024 14:35:39 07/17/19 25 07/17/2024 urina lysis , dipst ick Ketone Trace Not Available In-Office Order Internal Use Only DO Not Attach Compendium DO Not Attach Compendium, Do Not Delete/merge, 07/17/2024 14:35:39 07/17/19 25 07/17/2024 urina lysis , dipst ick Bilirubin Negati ve Not Available In-Office Order Internal Use Only DO Not Attach Compendium DO Not Attach Compendium, Do Not Delete/merge, 07/17/2024 14:35:39 07/17/19 25 07/17/2024 urina lysis , dipst ick Glucose Negati ve Not Available In-Office Order Internal Use Only DO Not Attach Compendium DO Not Attach Compendium, Do Not Delete/merge, 07/17/2024 14:35:39 07/17/19 25 07/17/2024 urina lysis , dipst ick Appearance Clear Not Available In-Offi ce Order Internal Use Only DO Not Attach Compendium DO Not Attach Compendium, Do Not Delete/merge, 07/17/2024 14:35:39 07/17/19 25 07/17/2024 urina lysis , dipst ick Color Dark Yellow Not Available In-Office Order Internal Use Only DO Not Attach Compendium DO Not Attach Compendium, Do Not Delete/merge, 07/17/2024 14:35:39 07/17/19 25 07/17/2024 pregn tima test, urine HCG negati ve Not Available In-Office Order Internal Use Only DO Not Attach Compendium DO Not Attach Compendium, Do Not Delete/merge, 07/17/2024 14:35:40 07/18/19 25 07/18/2024 PLEJACKSON Arvizu NOTE please note Commen t The date and/o r time of colle ction was not indic ated on the requi sitio n as requi red by state and matthew al law. The date of recei pt of the speci men was used as the colle ction date if not suppl ied. Not Available [facility] ([facility]) [address] [facility], [place], [address], 07/20/2024 02:06:17 07/18/1907/20/2024 URINE CULTU RE, ROUTI NE urine culture, routine FINAL REPORT Not Available [facility] ([facility]) [address] [facility], [place], [address], 07/20/2024 02:06:19 07/18/1907/20/2024 URINE CULTU RE, ROUTI NE result 1 NO GROWTH Not Available [facility] ([facility]) [address] [facility], [place], [address], 07/20/2024 02:06:19 Result Notes None recorded. Problems Name Problem SNOMED Code Status Onset Date Resolution Date Notes Provider Name and Address Organization Details Recorded Time Anogenital hidradenitis suppurativa 316117903 Active 2023 MATTY ASENCIO Attn: Crystalin g,[address] [facility], [place], [address], [facility] 12:10:00 Problem Notes None recorded. Procedures Surgical History Date Name Laterality Status Provider Name and Address Organization Details Recorded Time 07/16/2018 Date of Last Pap Smear completed Emilie Pollack [place] - [facility] 10/06/2021 12:29:10 Imaging Results None recorded. Procedure Notes None recorded. Medical Equipment None Reported. Allergies Allergen ID Allergen Name Allergen Category Reaction Reaction Severity Criticality Documentation Date Start Date Code Code System Note Provider Name and Address Organization Details Recorded Time 332345 Substance with sulfonami de structure and antibacte rial mechanism of action (substanc e) medicatio n Not available Not available Not available 02/16/2022 31787 8003 SNOMED Rosaura Gutierrez MA null, [place] - [facility] 12:23:35 Medications Name Sig Start Date Stop [...] injection solution Administe r .1ml interderm ally 2023 active Not Available Not Available Not Avai [...] height Body mass index (BMI) Body weight Oxygen saturation Oxygen saturation in Arterial blood by Pulse oximetry Heart rate Respiratory rate Body temperature Systolic blood pressure Diastolic blood pressure Provider Name and Address Organization Details Last Updated DateTime 4 165.1 cm 33.6 kg/m2 84576.6 6 g 99 % 99 % 76 /min 16 /min 97.7 [degF] 110 mm[Hg] 60 mm[Hg] Salcaitlyn Rivera MA [facility] 4 17:00:37 Date Recorded Body height Body mass index (BMI) Body weight Heart rate Respiratory rate Oxygen saturation Oxygen saturation in Arterial blood by Pulse oximetry Systolic blood pressure Diastolic blood pressure Provider Name and Address Organization Details Last Updated DateTime 5 165.1 cm 34.4 kg/m2 60342.6 2 g 89 /min 16 /min 97 % 97 % 128 mm[Hg] 84 mm[Hg] Tiff Moody MA [facility] 5 14:04:46 Social History Question Answer Notes LastModified by Organizat ion Details LastModified Time Tobacco Smoking Status Former Smoker Marijuana , light [facility] 11/30/2021 14:58:30 Do You Have An Advance [...] 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 No Information not available 12/06/2021 What Was The Date Of Your Most Recent Tobacco Screening? 07/17/2024 [email or web address] Information not available 07/17/2024 How Many Children [...] Anxious, Or Unable To Sleep At Night)? [id number] Information not available 07/26/2021 Do You Use Any Illicit Or Recreational Drugs? Yes Information not available 07/26/2021 Do You Use Sunscreen Routinely? No Information not available 07/26/2021 Has Tobacco Cessation Counseling Been Provided? Yes [email or web address] Information not available 07/17/2024 On What Date Was Tobacco Cessation Counseling Provided? 07/17/2024 [email or web address] Information not available 07/17/2024 How Many Years [...] Response Coronary Artery Disease N Other N High Blood Pressure N Atrial Fibrillation N Kidney or Bladder Problems N Thyroid Problems N GI Problems N Depression N COPD N Blood Clots N Skin Problems N Anemia N Heart Attack ([place]) N Anxiety Disorder N Diabetes N Muscle, Joint, or Bone Problems N Arthritis N Seizures/Epilepsy N Acid Reflux (GERD) N Cancer N Stroke N Asthma N Allergies N High Cholesterol N Hepatitis N Liver Disease N Headaches N Hypertension N Heart Failure N Osteoporosis N Gynecological History Statement/Question Response Flow Moderate [...] 30 mcg/0.3 mL dose 12/19/2021 completed Emilie Pollack null, [place] - [facility] 05/26/2024 17:15:24 COVID-19, mRNA, LNP-S, PF, 30 mcg/0.3 mL dose 01/10/2022 completed Emilie Poll[place], [place] [facility] 05/26/2024 17:15:24 Past Encounters Encounter ID Performer Location Encounter Start Date Encounter Closed Date Diagnosis/Indication Diagnosis SNOMED-CT Code Diagnosis ICD10 Code Diagnosis Note [id number] MATTY ASENCIO [facility] [address] [place] [address] 10/07/2019 14:28:04 10/08/2019 11:53:37 Candidiasis of vagina 58304036 B37.3 patient gets Yeast infection while on abx. She is on day 7/10 of amoxicilli n for uti and ear infection. c/o thick white discharge and itch. denies fever, chills, dysuria, increased frequency. does nto want std testing today. On exam no flank pain, suprapubic pain. ear infection has resolved. - take diflucan tablet once- f/u if not improving [id number] MATTY ASENCIO [place] [facility] [address] [place] [address] 12/30/2019 13:45:55 01/06/2020 06:26:14 Increased frequency of urination 048249957 R35.0 patient continues to have UTI symptoms. Will check labs before treating as she has already been treated twice for UTI. Abnormal u terine bleeding 0567103635 9100 N93.9 Patient states she has vaginal blood. She has been recently diagnosed with STI and treated in ER. We will retest incase she is resistant to the antibiotic s. Advised to have pap smear done. [id number] MATTY ASENCIO [facility] [address] [place] [address] 04/12/2020 12:04:26 04/13/2020 11:04:27 Increased frequency of urination 847891399 R35.0 Increased frequency of urination. - UA +- macrobid- Culture- hydrate Abnormal u terine bleeding 7476781927 9100 N93.9 patient having discharge, recently treated for trichomona s. Will recehck lab to be sure it was effectivel y treated. [id number] Jose Tijerina MD [facility] [address] [place] [address] 06/25/2020 15:28:39 06/29/2020 08:10:52 Urinary tract infectious disease 49382089 N39.0 by history, are frequent [id number] MATTY ASENCIO [facility] [address] [place] [address] 10/07/2020 07:57:39 10/09/2020 08:31:25 Bacterial vaginosis 855121178 N76.0 patietn with fishy smell and white discharge x 2 weeks. denies fever, chills, abdominal pain, pelvic pain, disuria, blood in urine - negative UA in office - will treat for BV - f/u if symptoms do not or improve or worsen [id number] MATTY ASENCIO [facility] [address] [place] [address] 11/18/2020 15:01:32 11/22/2020 18:13:49 Onychomycosis of toenails 869699936 B35.1 BL first toe fungus and 4th toe on left foot. no sign of infection. nails are thickened and slightly raised. Adult heal th examination 706084874 Z00.00 Patient presents for well exam. C/O of nail fungus. ROS otherwise unremarkab le. On exam RRR, clear lungs. BL first toe fungus and 4th toe on left foot. no sign of infection. nails are thickened and slightly raised. - fifnish treatment for mouth as having teeth pulled soon - continue daily 30 min exercise routine - advised cutting down her daily soda - encouraged more veggies and fruits [id number] [facility] [address] [place] [address] 12/14/2020 14:55:47 12/14/2020 16:04:39 Onychomycosis 405025556 B35.1 [id number] Bertrand Mccrary [facility] [address] [place] [address] 01/27/2021 14:44:57 01/28/2021 09:42:31 Onychomycosis 404651784 B35.1 [id number] MATTY ASENCIO [facility] [address] [facility] [place] [address] 05/04/2021 11:14:33 05/05/2021 09:09:58 Infection of tooth 470597598 K04.7 - f/u surgeon- f/u la natalie for cleaning- brush teeth- take abx as prescribed [id number] MATTY HANSEN [facility] [address] [place] [address] 07/26/2021 08:44:28 07/27/2021 08:02:18 Candidiasis of vagina 82686505 B37.3 thick, white vaginal discharge, odor, and irritation x1 motrial fluconazol eadvised pt to f/u in office if sx don't improve to check for STDs, BV Depression screening 171 592059 Z13.31 PHQ 0 [id number] MATTY ASENCIO [facility] [address] [facility] [place] [address] 10/06/2021 12:21:47 10/07/2021 09:46:19 Perianal abscess 67402607 K61.0 large 3 o'clock perianal abscess (approx 2x2.5 inches), recurring, multiple small abscess at 7-8 o'clock. Had them drained in ER once at [place] and once at [place]. - denies medication to allergy- large abscess without a head, worry for rectal involvemen t.- multiple small chanelle-anal ones draining and smaller- surgery referral sent- ER if pain worsens or cannot get in quicker [id number] MATTY ASENCIO [facility] [address] [place] [address] 11/30/2021 14:32:32 12/01/2021 11:22:08 Perianal abscess 10115255 K61.0 large 3 o'clock perianal abscess (approx 2x2.5 inches), recurring, multiple small abscess at 7-8 o'clock. Had them drained in ER once at [place] and once at [place]. did not go to appointmen t on 10/11/21 but states she will go now. She knows an MA there and did not want her to know this about her. 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 Will need exam under anesthesia , with washout and exploratio n, as well as fistulotom y vs seton placement depending on the depth of the fistula seen on exploratio n. Risks include recurrence , as well as a rare chance of incontinen ce. Will proceed to OR as soon as is convenient . [id number] MATTY HANSEN [facility] [address] [place] [address] 02/16/2022 12:15:17 02/17/2022 08:42:24 Vaginal discharge 036597577 N89.8 x3 wkswhite, thick discharge, constantl y wet sexual ly active 3 months agono UA sxnot related to menstrual cycle, LMP 01/27/22nu swab vg + hsv Acne 70070163 L70.9 c/o acne to bilateral cheeks for yrs using a variety of face washes w/o improvemen tPEx- open comedones and papules to bilateral cheekstria l differin gel and cetaphil face wash OTC Depression screening 171 619474 Z13.31 PHQ 0 [id number] Siva Paulino MD [facility] [address] [place] [address] 02/23/2022 16:13:59 02/24/2022 09:44:48 Anogenital hidradenitis suppurativa 571908340 L73.2 patient doing well s/p I&D and debridemen t of anal abscess. However she has developed an additional abscess in the anal area as well as 2 small ones in her mons area. This raises the possiblity of hidradenit is of the anogential area. Will start 12 week course of minocyclin e and refer to dermatolog y. [id number] MATTY ASENCIO [facility] [address] [place] [address] 06/07/2022 11:13:36 06/12/2022 16:11:41 Anogenital hidradenitis suppurativa 527213431 L73.2 patient who underwent I&D and debridemen t of anal abscess. However she has developed an additional abscess in the anal area Likely hidradenit is of the anogenital area. 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 Will re-send her abx.- ER if worsens, refuses- SHE Called surgeon office one month ago, has not heard back. encouraged calling again. Overweight 569800111 E66 .3 [id number] MATTY HANSEN [facility] [address] [place] [address] 08/08/2022 14:57:25 08/10/2022 10:06:17 Vaginal irritation 715728785 N89.8 trial diflucan for vaginal itchingche ck nu swab Venereal d isease screening 988931726 Z11.3 STD screen Overweight 536497348 E66 .3 [id number] MATTY ASENCIO [facility] [address] [place] [address] 01/04/2023 14:00:45 01/04/2023 14:30:16 Anogenital hidradenitis suppurativa 707171944 L73.2 needs to contact ER Overweight 248705400 E66 .3 Sebaceous cyst of skin 606777876 L72.3 draining large cyst wit R eyelid involvemen tadvised ER to drainage and due to size and vision disturbanc ewill need derm [id number] Tiff Moody MA [facility] [address] [place] [address] 03/14/2023 11:01:47 03/14/2023 11:18:26 [id number] MATTY ASENCIO [facility] [address] [place] [address] 08/06/2023 10:22:12 08/07/2023 11:40:59 Anogenital hidradenitis suppurativa 628588553 L73.2 patient doing well s/p I&D and debridemen t of anal abscess 12/2021. However she has developed an additional abscess. This raises the possibilit y of hidradenit is of the anogential area. Will start 12 week course of doxycyclin e and refer to dermatolog y. Vaginal discharge 948278 006 N89.8 c/o of liquid white discharge that comes out after urinating. denies dysuria, pain, blood, chills, fever, pruritis, rash - nuswab in office [id number] Glo Morgan MA [facility] [address] [place] [address] 08/23/2023 10:29:58 08/23/2023 15:49:44 Dysuria 28784776 R30.0 [id number] BRITTNEE OCHOA NP SIF [facility] [address] [place] [address] 04/28/2024 16:38:13 04/29/2024 10:06:03 Obesity 302657068 E66.9 Tuberculos is screening 375937505 Z11.1 Return to clinic in 48-72 hours for test reading. [id number] MATTY ASENCIO [facility] [address] [place] [address] 07/17/2024 14:00:22 07/17/2024 14:49:26 Gynecologic examination 78320199 Z01.419 Pap obtainedCB E performedB reast education providedr/ o since no period since November- does have spottingab ortion 03/26/24 at 16 weeks Anogenital hidradenitis suppurativa 233329021 L73.2 patient doing well s/p I&D and debridemen t of anal abscess 12/2021. She is on shelter doxy and does not wish to be on it. - recommend bleach baths 1-2x per week. dilute 1/8 cup in a tub full of water and soak- apply hibiclens- glycolic acid may also help on external boils Obesity 461291476 E66.9 Health Concerns Section Related Observation LastModified by Organization Detai ls LastModified Time None Recorded Concern Status LastModified by Organization Details LastModified Time None Recorded Advance Directives Directive N: Payers Encounter Date Sequence Insurance Name Policy Number Policy Mina Covered Member ID Mina Member ID Guarantor Name 03/14/2023 1 [employer] [place] 2020 (MEDICAID REPLACEMENT - HMO) Martina Chatterjee [id number] Martina Chatterjee 08/06/2023 1 [employer] [place] - [place]) Martina Chatterjee [id number] Martina Chatterjee 08/23/2023 1 [employer] [place] - [place]) Martina Chatterjee [id number] Martina Chatterjee 04/28/2024 1 [employer] [place] - [place]) Martina Chatterjee [id number] Martina Chatterjee 07/17/2024 1 [employer] [place] - [place]) Martina Chatterjee [id number] Martina Chatterjee Notes Date Note Type Note Provider Name and Address Organization Details Recorded Time 08/06/2023 text/html pt agrees to PV due to winter weather patient continues to struggle with new abscess in anogenital region. She needs new referral. She would like to come in tomorrow for nuab. c/o of liquid white discharge that comes out after urinating. 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 No recent fevers, cough, congestion. No SOB or chest pain. No n/v/d. No sick contacts. No exposure to tb. BRITTNEE OCHOA NP Attn: Accounting[address] [facility], [place], [address], [facility] 04/28/2024 17:20:58 07/17/2024 text/html Martina is here for papPatient had at 4 months on 03/26/24. no complications. She has had spotting since that time. 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 She does not want to take it any more. LMP: [id number] Pap: 2019?Contraception :STI hx:Fam hx: breast, cervical, uterine, ovarian cancers MATTY ASENCIO Attn: Accounting[address] [place], [address], [facility] 07/17/2024 14:45:27 OBGyn Episode No OBEpisode recorded.
--- OUTSIDE RECORDS SUMMARY | 2024-07-28 06:38 | XMS_ITS | Continuity of Care Document ---
Author Organization [facility] Address [address] [place] [address] Care Team Providers Care Ict Customer Support Officer Name Role Phone YARA GALELGOS Primary Care Provider Assessment No assessment recorded. Plan of Treatment Reminders Order Date Submit Date Provider Last Modified By Organization Details Last Modified Time Details Appointments None recorded. Lab PPD (purified protein derivativ e), skin test 2023 CORNEL In-Office Order, Internal Use Only DO Not Attach Compendium DO Not Attach Compendium, Do Not Delete/merge, [id number] 18:05:23 Referral None recorded. Procedures None recorded. Surgeries None recorded. Imaging None recorded. Medication Orders Tubersol 5 tub. unit/0.1 mL intraderm al injection solution 2023 [email or web address] Not available 17:35:07 Patient TargetsNo targets recorded. Patient Instructions Encounter Date Encounter Id Patient Instructions Last Modified By Organization Details Last Modified Time 04/28/2024 [id number] A healthy lifestyle: care instructions Not available 04/28/2024 17:20:37 tuberculin skin test: care instructions Not available 04/28/2024 17:20:37 Reason for Referral None Reported. Results Created Date Observation Date Name Description Value Unit Range Abnormal Flag Note LastModifiedBy Organization Detail LastModifiedTime 04/30/20 24 04/30/2024 PPD (jace fied prote in deriv ative ), skin test Result Negati ve Not Available In-Office Order Internal Use Only DO Not Attach Compendium DO Not Attach Compendium, Do Not Delete/merge, [id number] 04/28/2024 17:19:55 Result Notes None recorded. Problems Name Problem SNOMED Code Status Onset Date Resolution Date Notes Provider Name and Address Organization Details Recorded Time Anogenital hidradenitis suppurativa [id number] Active 2023 MATTY ASENCIO Attn: Daryl gee,[address] [facility], [place], [address], [facility] 4 12:10:00 Problem Notes None recorded. Procedures Surgical History Date Name Laterality Status Provider Name and Address Organization Details Recorded Time 07/16/2018 Date of Last Pap Smear completed Emilie Pollack [place] 10/06/2021 12:29:10 Imaging Results None recorded. Procedure Notes None recorded. Medical Equipment None Reported. Allergies Allergen ID Allergen Name Allergen Category Reaction Reaction Severity Criticality Documentation Date Start Date Code Code System Note Provider Name and Address Organization Details Recorded Time 482315 Substance with sulfonami de structure and antibacte rial mechanism of action (substanc e) medicatio n Not available Not available Not available 02/16/2022 46084 8003 SNOMED Rosaura Gutierrez MA [facility], [place] - [place] 2 12:23:35 Medications Name Sig Start Date [...] Updated DateTime 4 165.1 cm 33.6 kg/m2 87383.6 6 g 99 % 99 % 76 /min 16 /min 97.7 [degF] 110 mm[Hg] 60 mm[Hg] Kimberley Rivera MA [facility] 4 17:00:37 Social History Question Answer Notes LastModified by Organizat ion Details LastModified Time Tobacco Smoking Status Former Smoker Marijuana , light smoker Nishant Tiwari MA [facility], [place] - [facility] 11/30/2021 14:58:30 Do You Have An Advance [...] 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 No Information not available 12/06/2021 What Was The Date Of Your Most Recent Tobacco Screening? 07/17/2024 Information not available 07/17/2024 How Many Children [...] Anxious, Or Unable To Sleep At Night)? [id number] Information not available 07/26/2021 Do You Use Any Illicit Or Recreational Drugs? Yes Information not available 07/26/2021 Do You Use Sunscreen Routinely? No Information not available 07/26/2021 Has Tobacco Cessation Counseling Been Provided? Yes [email or web address] Information not available 07/17/2024 On What Date Was Tobacco Cessation Counseling Provided? 07/17/2024 Information not available 07/17/2024 How Many Years [...] Atrial Fibrillation N High Blood Pressure N Depression N COPD N Blood Clots N Anxiety Disorder N Muscle, Joint, or Bone Problems N Arthritis N Acid Reflux (GERD) N Cancer N Stroke N High Cholesterol N Liver Disease N Headaches N Kidney or Bladder Problems N Thyroid Problems N GI Problems N Skin Problems N Anemia N Heart Attack ([place]) N Diabetes N Seizures/Epilepsy N Asthma N Allergies N Hepatitis N Hypertension N Heart Failure N Osteoporosis [...] SNOMED-CT Code Diagnosis ICD10 Code Diagnosis Note [id number] BRITTNEE OCHOA NP [facility] [address] [place] [phone] 04/28/2024 16:38:13 04/29/2024 10:06:03 Obesity 758511346 E66.9 Tuberculos is screening [id number] Z11.1 Return to clinic in 48-72 hours for test reading. 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 No recent fevers, cough, congestion. No SOB or chest pain. No n/v/d. No sick contacts. No exposure to tb. BRITTNEE OCHOA NP Attn: Accounting,[address] [facility], [place], [address], [facility] [place] 04/28/2024 17:20:58 OBGyn Episode No OBEpisode recorded.
--- OUTSIDE RECORDS SUMMARY | 2024-07-28 06:39 | XMS_ITS | Encounter Summary ---
Author Organization [facility] Address [address] [place] [address] Phone Care Team Providers Care Mine Manager Name Role Phone Alicia Rodriguez Primary Care Provider + Encounter Details Date Type Department Care Team (Late st Contact Info) Description 09/06/2023 Telephone [facility] Dermatology [address] [place] [address] [address] [place] [address] Demetria Solitario RMA Social History Tobacco Use Types Packs/Day Years Used Date Smoking Tobacco: Every Day Cigarettes Smokeless Tobacco: Never Alcohol Use Standard Drinks/Week Comments No 0 (1 standard drink = 0.6 oz pur e alcohol) AUDIT-C Answer Date Recorded Q1: How often do you have a drink containing alc ohol? 2-4 times a month 04/11/2021 Q2: How many drinks containi ng alcohol do you have on a typical day when you are drinking? 1 or 2 04/11/2021 Q3: How often do you have si x or more drinks on one occasion? Less than monthly 04/11/2021 Personal Safety Answer Date Recorded Have you ever been in or are you currently in a harmful physical or emotional relationship or is someone making you feel afraid or unsafe? 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 Ptis currently booked 05/09/24 Luis Eduardo STARK. I will contact pt directly. Called pt and spoke - Scheduled tomorrow Sun09/07/23 @ 3:[address] Hoff Arrive 10 - 15 mins early to check in at the front desk manager. Pt will do an e-check in as she will arrive right at 3:15 pm. Informed pt if she is more than 15 mins past her appt time, she will have to r/s. Pt states an understanding. Pt may view appt details in My Chart and do an e-check in. APPLIANCE WASHING MACHINE MECHANIC documented in this encounter Plan of Treatment Not on file documented as of this encounter Visit Diagnoses Not on filedocumented in this encounter Care Teams Mine Manager Relationship Specialty Start Date End Date Alicia Rodriguez PA [address] [place] [address] PCP - General Physician Consulting Psychiatrist 01/04/23 documented as of this encounter
--- OUTSIDE RECORDS SUMMARY | 2024-07-28 06:39 | XMS_ITS | Encounter Summary ---
Author Organization [facility] Address [address] [place] [address] Phone Care Team Providers Care Signal Circuit Designer Name Role Phone Alicia Rodriguez Primary Care Provider + Reason for Visit * Reason Onset Date Comments canceled appointment 03/07/2024 Encounter Details Date Type Department Care Team (Late st Contact Info) Description 03/07/2024 Telephone [facility] Dermatology [address] [facility] [address] [place] [address] Jaydon Hoff MD PhD [address] [place], [place] [id number] canceled appointment Social History Tobacco Use Types Packs/Day Years Used Date Smoking Tobacco: Former Cigarettes Smokeless Tobacco: Never Alcohol Use Standard [...] on file 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 documented in this encounter Plan of Treatment Not on file documented as of this encounter Visit Diagnoses Not on filedocumented in this encounter Care Teams Signal Circuit Designer Relationship Specialty Start Date End Date Alicia Rodriguez PA [address] [place] [address] PCP - General Physician Parking Lot Spotter 01/04/23 documented as of this encounter
--- OUTSIDE RECORDS SUMMARY | 2024-07-28 06:39 | XMS_ITS | Encounter Summary ---
Author Organization [facility] Address [facility] [facility] [place] [address] [place] [address] Care Team Providers Care Unclaimed Property Officer Name Role Phone Unavailable Primary Care Provider Unavailabl e Encounter Details Date Type Department Care Team (Late st Contact Info) Description 10/02/2005 Emergency [facility] [place] [address] Hayden Capellan MD [facility] [place] [address] Social History Tobacco Use Types Packs/Day Years Used Date Smoking Tobacco: Never Assessed Comments Unknown Sex and Gender Information Value Date Recorded Sex Assigned at Not on file Legal Sex Female 4:44 PM CDT Gender Identity Not on file Sexual Orientation Not on file documented as of this encounter Plan of Treatment Not on file documented as of this encounter Visit Diagnoses Not on filedocumented in this encounter
--- OUTSIDE RECORDS SUMMARY | 2024-07-28 06:39 | XMS_ITS | Clinical Summary ---
Author Organization [facility] Address [facility] [place], [place] [address] [place] [address] Care Team Providers Care Brass Molder Name Role Phone Unavailable Primary Care Provider Unavailabl e Social History Tobacco Use Types Packs/Day Years Used Date Smoking Tobacco: Never Assessed Comments Unknown Sex and Gender Information Value Date Recorded Sex Assigned at Not on file Legal Sex Female 4:44 PM CDT Gender Identity Not on file Sexual Orientation Not on file Plan of Treatment Health Maintenance Due Date Last Done Comments Cervical Cancer Screening Pa p Smear (Age 30 to 64) Every 3 Years 1988 Annual Physical 10/17/1991 Hepatitis C 2006 DTaP, Tdap and Td Vaccines ( 1 - Tdap) 10/17/2007 Hepatitis B Vaccines (1 of 3 - 19+ 3-dose series) 10/17/2007 Cervical Cancer Screening Pa p with HPV Testing (Age 30 to 64) Every 5 Years 2018 Cervical Cancer Screening with HPV 2018 COVID-19 Vaccine (2023-2 5 season) 2024 Influenza Adult (#1) 2024 HPV Vaccines Aged Out No longer eligi ble based on patient's age to complete this topic Meningococcal Vaccine Aged Out No nina dinorah eligible based on patient's age to complete this topic Pneumococcal Vaccine: Pediat rics (0 to 5 Years) and At-Risk Patients (6 to 64 Years) Aged Out No longer eligible b ased on patient's age to complete this topic RSV Immunizations Under 20 Months Aged Out No longer eligible based on patient's age to complete this topic
--- OUTSIDE RECORDS SUMMARY | 2024-07-28 06:39 | XMS_ITS | Encounter Summary ---
Author Organization [facility] Address [facility]. [place], [place] [id number] [place] [address] Care Team Providers Care City Letter Carrier Name Role Phone Unavailable Primary Care Provider Unavailabl e Encounter Details Date Type Department Care Team (Late st Contact Info) Description 09/29/[address] [facility] [facility] [address] [place] [address] Brock De Jesus MD Social History Tobacco Use Types Packs/Day Years [...]
--- OUTSIDE RECORDS SUMMARY | 2024-07-28 06:39 | XMS_ITS | Referral Summary ---
Author Organization [facility] Address [address] [place] [address] Care Team Providers Care Insurance Agency Sales Manager Name Role Phone Alicia Rodriguez Primary Care Provider + Allergies Active Allergy Reactions Criticality Noted Date Comments Sulfa (Sulfonamide Antibiotics) Rash Medium Medications chlorhexidine (PERIDEX) 0.12 % solution Apply to the mouth or throat 2 (two) times a day Active doxycycline (VIBRAMYCIN) 100 mg capsuleIndicatio ns:Hidradenitis Suppurativa Take 1 tablet/capsule (100 mg total) by mouth 2 (two) times a day Take with a full meal and a glass of water. 60 capsule 6 4 Active tretinoin (RETIN-A) 0.05 % creamIndications :Acne Vulgaris Apply topically nightly (face). 45 g 6 4 09/06/19 25 Active Active Problems Problem Noted Date Diagnosed Date Dental abscess 04/11/2021 Spontaneous vaginal delivery 06/11/2018 Overview (06/11/2018): # ID: Afebrile overnight. No signs/symptoms of infection. Febrile to 100.4 prior to delivery, diagnosed with chorioamnionitis s/p Amp and Gent. Afebrile since. # Heme: EBL 300 mL. No symptoms acute blood loss anemia. History of iron deficiency anemia. Hgb 9.6 on delivery. Iron bid. # CV/Pulm: Gestational hypertension - Blood pressures normotensive controlled on no medications. Asymptomatic, denies BOLAÑOS/RUQ pain/vision changes. 1 severe range blood pressure on presentation to L&D but PIH labs within normal limits. Will continue to monitor blood pressures. # GI/: Tolerating PO. Voiding spontaneously. # Pain: Controlled with above regimen. # DVT prophylaxis: Ambulating independently, sequential compression devices in place. # MOC: Patient unable to have IUD placed post-placental secondary to chorioamnionitis. Will be for IUD placement at 6 weeks . # MOF: Formula feeding # Disposition: Continue routine care # History of MJ use: +UDS in November, negative since. SW to see. Labor and delivery, indication for care 06/10/20 Overview (06/10/2018): 1. Labor: Latent labor. Making slow cervical change. Arnett score 7, with history of prior vaginal deliveries. Cont OT per protocol, currently at 4. 2. FWB: Continuous monitoring. Reactive NST. 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 FHM Category II, overall reassuring due to moderate variability and accelerations. 3. GI: Has experienced nausea with prior pregnancies and symptoms today with two episodes of vomiting. No nausea since taking Zofran. 4. ID: HIV negative. GBS negative. Membrane Status: intact 5. Indications for UDS: history of illicit drug use in last 12 months, +UDS for MJ in November but negative since. 6. History of gestational HTN: in a prior , 1 mild range BP on presentation today in setting of pain, previous PIH labs notable for LFTs normal, but platelets 111 and Cr 0.82, UPC 0.2 (06/03/18). Will continue to monitor given suspicion for evolving gestational HTN currently. 7. MOF: Plans to formula feed. 8. MOC: Desires post placental LNG-IUD to be placed, consents signed. 9. Pain management: Well controlled with epidural. 10. Post DVT prophylaxis: Patient has the following moderate risk factors: BMI>30. 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 Per verbal consult with Dr. 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 No need for additional testing. 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 Fontenot nuchal fold also upper normal limit (5-6mm) and genetic screening offered S/p negative NIPTon 03/12 History of gHTN with prior 12/31/2017 Overview (06/03/2018): Normotensive today 114/64 Discontinue daily low-dose ASA today; pt verbalized understanding Addendum 06/03: Two mid-range Bps today; #1 120/86 #2 120/86 (manual) 2+ proteinuria present Pt denies BOLAÑOS, visual changes, or epigastric pain; edema has resolved since she quit working CBC, CMP, uric acid, p/c ratio obtained, results pending PreE warning signs reviewed-instructed to go to [facility] immediately with any s/s History of marijuana use 12/31/2017 Overview (06/03/2018): Previously reviewed risks to with continued use Continue to abstain for duration of Obtain random UDS each trimester 38 weeks gestation of 12/03/2017 Overview (06/03/2018): labs UTD- 3T labs reviewed; GBS Neg Tdap Previously declined Continue daily PNV Reviewed FKCs and s/s of labor; warning signs of PreE Has car seat and ped Discussed FMLA papers MOD: anticipates MOF: bottle MOC: Reviewed options; considering Denise RTC in 1 week Female fetus Resolved Problems Problem Noted Date Diagnosed Date Resolved Date Pedal edema 05/21/2018 06/03/2018 Overview (05/21/2018): Recommend elevation of legs when possible and increased fluids Warning signs of PrE reviewed Nausea and vomiting of , antepartum 8 05/21/2018 Overview (12/31/2017): Encouraged pt to continue small, frequent meals Recommend gum and sipping fluids instead of spitting if possible Continue zofran 8mg ODT prn Bacterial vaginosis 08/15/2013 02/05/20 18 Overview (12/31/2017): Begin metronidazole BID x7 days, rx re-sent Immunizations Name Administration Dates Next Due Influenza, Quadrivalent, Spl it, Preservative Free, Intramuscular 04/19/2021 Influenza, Trivalent, Preser vative Free, Intramuscular 04/23/2013 MMR 06/12/2018(Deferred: Contraindication - pt immune) PPD TEST 05/22/2007 Tdap 07/06/2013,04/23/2013 Social History Tobacco Use Types Packs/Day Years Used Date Smoking Tobacco: Former Cigarettes Smokeless Tobacco: Never Tobacco Cessation:Counseling Given: Not Answered Alcohol Use Standard Drinks/Week Comments No 0 [...] on file 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 Gender Identity Not on file Sexual Orientation Not on file Last Filed Vital Signs Vital Sign Reading Time Taken Comments Blood Pressure 108/76 01/04/2023 10:45 PM CDT Pulse 67 01/04/2023 10:45 PM CDT Temperature 37.1 ??C (98.8 ??F) 01/04/2023 9:17 PM CD T Respiratory Rate 18 01/04/2023 9:12 PM CDT Oxygen Saturation 100% 01/04/2023 10:45 PM CDT Inhaled Oxygen Concentration - - Weight 78 kg (171 lb 15.3 oz) 01/04/2023 9:12 PM CDT Height 165.1 cm (5' 5 ) 01/04/2023 9:12 PM CDT Body Mass Index 28.62 01/04/2023 9:12 PM CDT Plan of Treatment Not on file Procedures Procedure Name Priority Date/Time Associated Diagnosis Comments HEPATITIS C ANTIBODY Routine Gen Lab 12/03/2017 12:35 PM CDT from Last 3 Months or Most Recently Relevant to Health Maintenance Results * Hepatitis C antibody (12/03/2017 12:35 PM CDT) Hep C Ab Nonreactive Nonreactive [facility] Comment: Interpretive Data Positive and greyzone results should be confirmed by a molecular method. If positive or greyzone, a second separately collected sample should be submitted for Hepatitis C Virus RNA. Detection and Quantitation by Real-Time Reverse Patternmaker Metal-PCR.Current Interpretive data was last revised on 2016. Blood specimen (specimen) 12/03/2017 12:35 PM CDT 12/03/2017 2:02 PM CDT Narrative [facility] - 12/04/2017 9:34 AM CDT us Klarissa Regan NP LAB MICROBIOLOGY - GENERAL ORDERABLES Edited Result - Final [facility] Department [place] [address] from Last 3 Months or Most Recently Relevant to Health Maintenance [place] [facility] Advance Directives For more information, please contact: [phone] * Full Code (Latest Code Status on File) Date Activated Date Inactivated Comments 04/11/2021 1:18 PM 04/19/2021 6:36 PM * Full Code Date Activated Date Inactivated Comments 04/11/2021 11:16 AM 04/11/2021 1:18 PM * Full Code Date Activated Date Inactivated Comments 06/10/2018 6:33 PM 06/12/2018 9:45 PM * Full Code Date Activated Date Inactivated Comments 06/10/2018 6:06 AM 06/10/2018 6:33 PM Full CPR i n case of cardiopulmonary arrest Care Teams Insurance Agency Sales Manager Relationship Specialty Start Date End Date Alicia Rodriguez PA [address] [place] [id number] PCP - General Physician Channel Installer 01/04/23
--- OUTSIDE RECORDS SUMMARY | 2024-07-28 06:39 | XMS_ITS | Encounter Summary ---
Author Organization [facility] Address [facility]. [place], [place] [id number] [place] [address] Care Team Providers Care Audiologist Name Role Phone Unavailable Primary Care Provider Unavailabl e Encounter Details Date Type Department Care Team (Late st Contact Info) Description 01/28/1995 Abstract [facility] [place] [address] , Generic Conversion, Social History Tobacco Use Types Packs/Day Years [...]
--- OUTSIDE RECORDS SUMMARY | 2024-07-28 06:39 | XMS_ITS | Encounter Summary ---
Author Organization [facility] Address [facility] [place], [place] [address] [place] [address] Care Team Providers Care Battery Builder Name Role Phone Unavailable Primary Care Provider Unavailabl e Encounter Details Date Type Department Care Team (Late st Contact Info) Description 05/07/[address] [facility] [address] [place] [address] , Manisha Mariano MD Social History Tobacco Use Types Packs/Day [...]
--- OUTSIDE RECORDS SUMMARY | 2024-07-28 06:39 | XMS_ITS | Encounter Summary ---
Author Organization [facility] Address [address] [place] [address] Phone Care Team Providers Care Sharepoint Application Architect Name Role Phone Alicia Rodriguez Primary Care Provider + Reason for Visit * Reason Comments Skin Exam + face Suspicious Skin Lesion Boils -intermitte nt x2 years * Consultation (Routine) - Authorized Specialty Diagnoses / Procedures Referred By Albaro branes Referred To Contact Dermatology Diagnoses Hidradenitis suppurativa Alicia Rodriguez PA [address] [place] [address] Phone: tel: fax: [facility] Dermatology [address] [place] [address] Outpatient [facility] [address] [place] [phone] Phone: tel: fax: Referral ID Status Reason Start Date Expiration Date Visits Requested Visits Authorized [id number] Authorized Specialty Services Required 08/09/2023 09/07/2024 12 12 Encounter Details Date Type Department Care Team (Late st Contact Info) Description 09/07/2023 3:15 PM MECHANICAL ESTIMATOR Office Visit [facility] Dermatology [address] [place] [address] Outpatient Health [address] [place] [phone] Jaydon Hoff MD PhD [address] [place] [id number] Hidradenitis suppurativa (Primary Dx); Acne vulgaris Social History Tobacco Use Types Packs/Day Years [...] on file Legal Sex Female 1:19 AM MECHANICAL ESTIMATOR Gender Identity Not on file Sexual Orientation Not on file documented as of this encounter Ordered Prescriptions Prescription Sig Dispense Quantity Refills Last Filled Start Date End Date tretinoin (RETIN-A) 0.05 % creamIndications:A cne Vulgaris Apply topically nightly (face). 45 g 6 09/07/2023 5 doxycycline (VIBRAMYCIN) 100 mg capsuleIndications :Hidradenitis Suppurativa Take 1 tablet/capsule (100 mg total) by mouth 2 (two) times a day Take with a full meal and a glass of water. 60 capsule 6 09/07/2023 clindamycin (Cleocin T) 1 % lotionIndications: Hidradenitis Suppurativa Apply topically daily 60 mL 6 09/07/2023 4 documented in this encounter Progress Notes * Jaydon Hoff MD PhD - 09/07/2023 3:15 PM CST Martina Chatterjee [id number] 09/07/23 CHIEF COMPLAINT: boils HISTORY OF PRESENT ILLNESS Martina Chatterjee is a 32 y.o. female new to clinic, here today for the evaluation of boils and toestablish care. Pt states today: Notes boils on face, in groin and between buttocks. Noted that boil on face was not like acne because it drained lots of pus. Pt notes that some of the lesion on the buttock drain. Been going on for about 2 years. Pt notes no problems with 5 years ago. Pt notes aunt with hx of boils. Pt notes having surgery for these boils. Pt is currently taking doxycycline from PCP Pt previously quit smoking. No other associated symptoms, exacerbating or alleviating factors. No other painful, bleeding or pruritic areas. No other new, changing or otherwise suspicious lesions. HISTORY Medications and allergies reviewed in chart Past medical, family and social history reviewed and noncontributory unless noted in HPI. Social Hx: Has a 5 year old daughter Past Medical History: Diagnosis Date Dental abscess Encounter for routine follow-up exam - (Added by TW Conv) Preeclampsia Hx of pre eclampsia with at least 2 pregnancies. REVIEW OF SYSTEMS Constitutional: [ ] lack of energy, [ ] unexplained weight gain/loss, [ ] appetite loss, [ ] fever,[ ] night sweats, [ ] pain with mastication, [ ] scalp tenderness, [ ] prior cancer diagnosis, [ ] other ___ ENT: [ ] difficulty hearing, [ ] sinus problems, [ ] runny nose, [ ] post-nasal drip, [ ] ringing in ears, [ ] mouth sores, [ ] loose teeth, [ ] ear pain, [ ] nosebleeds, [ ] sore throat, [ ] facial pain/numbness, [ ] other ___ CV: [ ] irregular heartbeat, [ ] racing heart, [ ] chest pains, [ ] swelling of feet/legs, [ ] claudication, [ ] other ___ Resp: [ ] shortness of breath, [ ] prolonged cough, [ ] sputum production, [ ] coughing up blood, [] wheezing, [ ] pleurisy, [ ] prior TB diagnosis, [ ] home O2 requirement, [ ] abnormal CXR, [ ] other ___ GI: [ ] heartburn, [ ] difficulty swallowing, [] food intolerance, [] nausea, [ ] vomiting, [ ] abdominal pain, [ ] constipation, [ ] diarrhea, [] unexplained changes in bowel habits, [ ] bloody stool, [ ] fecal incontinence, [ ] other ___ : [ ] painful urination, [ ] frequent urination, [ ] urgency, [ ] prostate problems, [ ] bladder problems, [ ] impotence, [ ] other ___ MSK: [ ] joint pain, [ ] shoulder pain, [ ] muscle aches, [ ] joint swelling, [ ] joint deformity, [ ] back pain, [ ] other ___ Integ: [ ] persistent rash, [ ] itching, [ ] new skin lesions, [] change in existing skin lesions, [ ] hair loss/increase, [ ] breast changes, [X] other: Bumps Neuro: [ ] frequent headaches, [ ] double vision, [ ] vision loss, [ ] change in sensation, [ ] dizziness, [ ] weakness, [ ] problems with walking/balance, [ ] tremor, [ ] uncontrolled motions, [ ] loss of consciousness, [ ] other ___ Psych: [ ] insomnia, [ ] irritability, [ ] depression, [ ] anxiety, [ ] recurrent bad thoughts, [ ]mood swings, [ ] hallucinations, [ ] compulsions, [ ] other ___ Endocrine: [ ] heat/cold intolerance, [ ] frequent hunger/urination/thirst, [ ] menstrual irregularities, [ ] changes in sex drive, [ ] other ___ Heme: [ ] easy bleeding, [ ] easy bruising, [ ] unexplained swollen areas, [ ] abnormal blood tests, [ ] anemia, [ ] leukemia, [ ] other ___ Allergy/Immunology: [ ] seasonal allergies, [ ] hay fever symptoms, [ ] frequent infections, [ ] HIV exposure, [ ] other ___ PHYSICAL EXAM Gen and Cardio: Well-developed and well-nourished in no acute distress. Alert oriented and interacts appropriately. Normal conjunctiva. Normal skin sensation. No lower extremity edema. Derm: A full cutaneous exam was performed with close inspection and palpation where indicated and as allowed by the patient of the hair, scalp, face, lips, neck, chest, abdomen, buttock, back, right upper, left upper, right lower, left lower extremities, hands, feet, nails and digits. All skin examined was normal with exception of these notable exam findings: Nodules and granulation tissue with sinus tracts at groin and buttocks Erythematous pustules and comedones scattered across face ASSESSMENT AND PLAN Hidradenitis suppurativa Goldstein Stage II, armpits, groin, and buttocks Discussed nature of condition. Pt assured Start OTC BPO 5% wash (counseled on risk of bleaching clothes). Apply for 5-10 mins before washing it off. SER bleaching. Pt to use a white towel. Continue Doxycycline (VIBRAMYCIN) 100 mg capsule; Take 1 tablet/capsule (100 mg total) by mouth 2 (two) times a day. SER, including GI upset, photosensitivity, risk of ICH. Take with food and full glass of water. Sun protection reviewed and recommended. Start Clindamycin 1% lotion to AA qday; SER irritation, resistance Discussed that our role is to medically manage Pt's HS Discussed preventative care such as wearing loose-fitting clothing, ILK injections for flare-ups toavoid ED visits,and avoiding tobacco use. Recommended bleach baths. Add 1/2 cup bleach to 1/2 tub of water, soak for 20 minutes. Recommended to journal the amount of HS flare-ups Pt has until next visit in 6 months Acne Vulgaris Discussed treatment options. Pt educated on course and prognosis. Recommend cautious observation for change. Educated on the use of gentle soaps, daily baths, avoidance of fragrance- containing products and use of petroleum jelly to moisturize. Start OTC BPO 3-5% wash daily. Apply and leave on for at least 3 minutes before rinsing. SER including bleaching and dryness Start Tretinoin 0.025% cream to face qHS; SER including redness and irritation. Pt to apply cream in multiple pea-sized amounts and rub in face. Pt to avoid the eyes and mouth Return visit: 6 months Patient was instructed to return sooner should they develop any new, changing and/or worsening lesions, side effects of any recommended treatments, or as needed. SCRIBE ATTESTATION By signing my name, I, clementine Gustafson, attest that this documentation has been prepared under the direction and in the presence of Dr. Hoff 09/07/2023 3:32 PM ATTENDING ATTESTATION I personally performed the services described in this documentation, reviewed and edited the documentation which was dictated to the scribe in my presence, and it accurately records my words and actions. Electronically Signed: Jaydon Hoff MD, PhD ANICAL ESTIMATOR documented in this encounter Plan of Treatment Not on file documented as of this encounter Visit Diagnoses Diagnosis Hidradenitis suppurativa- Primary Hidradenitis Acne vulgaris Other acne documented in this encounter Discontinued Medications Medication Sig Discontinue Reason Start Date End Da te doxycycline (VIBRAMYCIN) 100 mg capsule Take 1 tablet/capsule (100 mg total) by mouth 2 (two) times a day Reorder 01/04/2023 09/07/2023 documented as of this encounter Orders Outpatient Referral Count Last Ordered Date Fir st Ordered Date AMB REFERRAL TO DERMATOLOGY 1 09/07/2023 documented in this encounter Care Teams Sharepoint Application Architect Relationship Specialty Start Date End Date Alicia Rodriguez PA [address] [place] [id number] PCP - General Physician Band Log Mill And Carriage Operator 01/04/23 documented as of this encounter
--- OUTSIDE RECORDS SUMMARY | 2024-07-28 06:39 | XMS_ITS | Encounter Summary ---
Author Organization [facility] Address [address] [place] [address] Care Team Providers Care Seed Cleaner Name Role Phone Alicia Rodriguez Primary Care Provider + Reason for Referral * Consultation (Urgent) - Closed Specialty Diagnoses / Procedures Referred By Contchasity t Referred To Contact Plastic Surgery Diagnoses Abscess Kathy Dumont PA [address] [place] [address] Phone: tel: fax: [facility] Plastic Surgery [address] [facility] [address] [place] [phone] Phone: tel: fax: Referral ID Status Reason Start Date Expiration Date V isits Requested Visits Authorized [id number] Closed Specialty Services Required 01/04/2023 02/03/2024 1 1 Question Answer Please select the performing region: [facility] [[id number]] Please select the performing department: [facility] [id number] [[id number]] # of visits: 1 Reason for Visit * Reason Comments Abscess Encounter Details Date Type Department Care Team (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 You have received emergency care only at your visit today. This is not a substitute for ongoing care, further evaluation and treatment and therefore follow-up as directed is not optional but mandatory You MUST follow up for further evaluation of all incidental abnormal radiographic and laboratory findings, Have your physician obtain records from this visit and address all the incidental abnormal findings. This may include final results of lab testing, cultures, final x-ray reports which may not have been available during the time of the visit. Return immediately for any new symptoms, worsening of symptoms, or persistent symptoms * Attachments The following attachments cannot be sent through Care Everywhere. * Abscess (AfterCare(R) Instructions(ER/ED)) (Syrian) documented in this encounter Medications at Time of Discharge chlorhexidine (PERIDEX) 0.12 % solution Apply to the mouth or throat 2 (two) times a day doxycycline (VIBRAMYCIN) 100 mg capsule Take 1 tablet/capsul e (100 mg total) by mouth 2 (two) times a day 20 capsule 01/04/2023 09/07/2023 documented as of this encounter Ordered Prescriptions Prescription Sig Dispense Quantity Refills Last Filled Start Date End Date doxycycline (VIBRAMYCIN) 100 mg capsule Take 1 tablet/caps ule (100 mg total) by mouth 2 (two) times a day 20 capsule 01/04/2023 09/07/2023 documented in this encounter Discharge Disposition Disposition Code Departure Means Destination Comment s Discharge to home or self care documented in this encounter ED Notes * Kathy Dumont PA - 01/04/2023 10:45 PM CDT Images from the original note were not included. CHIEF COMPLAINT: Chief Complaint Patient presents with Abscess HPI 10:45 PM Martina Chatterjee is a 32 y.o. female presenting to the ED c/o abscess to right upper eyelid for the last 2 weeks. States area has been draining. She is been taking clindamycin 150 mg 1 tabp.o. q.6 hours for the last 4 days after being evaluated at [place] [facility]. She was referred to a plastic surgeon however they did not take her insurance. Sent today by her PCP. Patient states swelling and pain have actually improved. Feels that the area has gotten smaller since starting the antibiotics. She is still able to express some drainage from the area. She denies any pain with eye movements. No fever, chills, nausea vomiting diarrhea. History provided by pt PCP: Alicia Rodriguez PA PAST MEDICAL HISTORY Past Medical History: Diagnosis Date Dental abscess Encounter for routine follow-up exam - (Added by TW Conv) Preeclampsia Hx of pre eclampsia with at least 2 pregnancies. PAST SURGICAL HISTORY Past Surgical History: Procedure Laterality Date OTHER SURGICAL HISTORY labial surgery FAMILY HISTORY No family history on file. MEDICATIONS GIVEN IN THE ED Medications - No data to display CURRENT HOME MEDICATIONS No current facility-administered medications for this encounter. Current Outpatient Medications: chlorhexidine (PERIDEX) 0.12 % solution, Apply to the mouth or throat 2 (two) times a day, Disp: , Rfl: doxycycline (VIBRAMYCIN) 100 mg capsule, Take 1 tablet/capsule (100 mg total) by mouth 2 (two) times a day, Disp: 20 capsule, Rfl: 0 ALLERGIES Allergies Allergen Reactions Sulfa (Sulfonamide Antibiotics) Rash SOCIAL HISTORY Social History Tobacco Use Smoking status: Every Day Packs/day: 0.15 Types: Cigarettes Smokeless tobacco: Never Substance and Sexual Activity Drug use: No Sexual activity: Yes Partners: Male Alcohol Use: Heavy Drinker (04/11/2021) AUDIT-C Frequency of Alcohol Consumption: 2-4 times a month Average Number of Drinks: 1 or 2 Frequency of Binge Drinking: Less than monthly PHYSICAL EXAM TRIAGE VITAL SIGNS: ED Triage Vitals Temp Pulse Resp BP SpO2 01/04/23211601/04/23211101/04/23211101/04/23211101/04/232111 37.1 ??C (98.8 ??F) 90 18 113/77 98 % Temp src Heart Rate Source Patient Position BP Location FiO2 (%) 01/04/232116 -- -- -- -- Oral Height Height Method Weight Weight Method 01/04/232111 -- 01/04/23211101/04/232111 1.651 m (5' 5 ) 78 kg (171 lb 15.3 oz) Standing scale Physical Exam Vitals and nursing note reviewed. Constitutional: General: She is not in acute distress. Appearance: She is well-developed. She is not ill-appearing. HENT: Head: Normocephalic and atraumatic. Right Ear: External ear normal. Left Ear: External ear normal. Nose: Nose normal. Mouth/Throat: Mouth: Mucous membranes are moist. Eyes: Extraocular Movements: Right eye: Normal extraocular motion. Left eye: Normal extraocular motion. Conjunctiva/sclera: Conjunctivae normal. Comments: Approx dime sized area of swelling noted to R upper eyelid. Area is scabbed with minimal drainage. TTP. EOMI Cardiovascular: Rate and Rhythm: Normal rate and regular rhythm. Heart sounds: No murmur heard. Pulmonary: Effort: Pulmonary effort is normal. No respiratory distress. Breath sounds: Normal breath sounds. Abdominal: Palpations: Abdomen is soft. Tenderness: There is no abdominal tenderness. Musculoskeletal: General: No swelling. Cervical back: Neck supple. Skin: General: Skin is warm and dry. Capillary Refill: Capillary refill takes less than 2 seconds. Neurological: Mental Status: She is alert. Psychiatric: Mood and Affect: Mood normal. LABS Labs Reviewed - No data to display RADIOLOGY No results found. EKG EKG: ED COURSE/MEDICAL DECISION MAKING Differential diagnosis included but not limited to asbcess, cellulitis, chalazion Patient's medical records were reviewed. ED Course as of 01/04/232244 Time: 01/05 2244 Comment: DC home with doxy. Encouraged warm compresses every hour for 10 or 15 minutes. Patient wasgiven name of a plastic surgeon, referral placed in the computer system. By: Kathy Dumont PA Procedures FINAL IMPRESSION Eyelid abscess, right Abscess DISPOSITION: Home All findings were discussed with patient. Pt agreeable with plan. Non toxic appearing, vitals stable. Patient stable for discharge home. Given return to ER precautions Close outpatient follow-up with a low threshold to return has been mandated , concerning symptoms have been emphasized in detail, and this patient expresses understanding PATIENT INSTRUCTED TO FOLLOW UP Alicia Rodriguez PA [address] [place] [address] DISCHARGE MEDICATIONS Your medication list START taking these medications Instructions Last Dose Given Next Dose Due doxycycline 100 mg capsule Commonly known as: VIBRAMYCIN Take 1 tablet/capsule (100 mg total) by mouth 2 (two) times a day ASK your doctor about these medications Instructions Last Dose Given Next Dose Due chlorhexidine 0.12 % solution Commonly known as: PERIDEX Apply to the mouth or throat 2 (two) times a day Where to Get Your Medications These medications were sent to [place] [address] [place] [address] doxycycline 100 mg capsule This examination was transcribed using the [employer] voice recognition system without human millwork estimator. In an effort to expedite patient care, this report has not been adjusted for typographical, grammatical, and syntax by a trained medical driver. Kathy Dumont PA 01/04/23 6820 Cosigned by Apollo Rodriguez DO at 01/04/2023 11:53 PM CDT Associated attestation - Apollo Rodriguez DO - 01/04/2023 11:53 PM CDT ED Attestation This patient was independently evaluated by the APC. I was available for immediate consultation andin-person evaluation if required but was not asked to do so. * Griselda Combs RN - 01/04/2023 9:17 PM CDT Did recently have abscess to chanelle area that burst per patient. Denies any other wounds or abscesslike wounds at this time. * Griselda Combs RN - 01/04/2023 9:15 PM CDT Paient here with abscess on upper right eyelid for 1 week. Was seen previously in ER treated with antibiotic but continues to get worse. PCP called her today to advise her to come to ED. Does get frequent boils . Scheduled to see dermatology. Has large abscess to right upper eyelid with some drainage per patient. Denies any vision changes. Denies fever at home. Did complete previous antibiotic course. documented in this encounter Plan of Treatment Scheduled Referrals Name Type Priority Associated Diagnoses Order Schedule Ambulatory referral to Plastic Surgery Outpatient Referral Urgent Abscess Expected: 01/11/2023 (Approximate), Expires: 01/05/2024 documented as of this encounter Visit Diagnoses Diagnosis Eyelid abscess, right- Primary Abscess Cellulitis and abscess of unspecified site documented in this encounter Care Teams Seed Cleaner Relationship Specialty Start Date End Date Alicia Rodriguez PA [address] [place] [address] PCP - General Physician Post Commander 01/04/23 documented as of this encounter
--- OUTSIDE RECORDS SUMMARY | 2024-07-28 06:39 | XMS_ITS | Encounter Summary ---
Author Organization [facility] Address [address] [place] [address] Phone Care Team Providers Care Spool Tender Name Role Phone No, Physician Primary Care Provider [phone] Reason for Referral * Consultation (Routine) - Closed Specialty Diagnoses / Procedures Referred By Contac t Referred To Contact Otolaryngology Diagnoses Dental abscess Referral, Self [facility] (All Locations) Referral ID Status Reason Start Date Expiration Date V isits Requested Visits Authorized [id number] Closed Specialty Services Required 05/06/2021 06/05/2022 99 99 Question Answer Please select the performing region: [facility] (All Locations) [[id number]] # of visits: 1 Reason for Visit * Reason Comments Abscess * Consultation (Routine) - Closed Specialty Diagnoses / Procedures Referred By Contac t Referred To Contact Otolaryngology Diagnoses Dental abscess Referral, Self [facility] (All Locations) Referral ID Status Reason Start Date Expiration Date V isits Requested Visits Authorized [id number] Closed Specialty Services Required 05/06/2021 06/05/2022 99 99 Encounter Details Date Type Department Care Team (Late st Contact Info) Description 05/19/2021 10:20 AM CDT Office Visit [facility] - [facility] ENT [address] [facility] [address], [address] [place] [address] Angel Lal MD [address] [place] [address] Dental abscess (Primary Dx) Social History Tobacco Use Types Packs/Day Years Used Date Smoking Tobacco: Every Day Cigarettes Smokeless Tobacco: Never Tobacco Cessation:Ready to Q uit: No; Counseling Given: Yes Alcohol Use Standard Drinks/Week Comments No 0 [...] on one occasion? Less than monthly 04/11/2021 Comments No Sex and Gender Information Value Date Recorded Sex Assigned at Not on file Legal Sex Female 1:19 AM NETWORK SPECIALIST Gender Identity Not on file Sexual Orientation Not on file documented as of this encounter Last Filed Vital Signs Vital Sign Reading Time Taken Comments Blood Pressure 113/73 05/19/2021 10:05 AM CDT Pulse 84 05/19/2021 10:05 AM CDT Temperature - - Respiratory Rate - - Oxygen Saturation - - Inhaled Oxygen Concentration - - Weight 61.2 kg (135 lb) 05/19/2021 10:05 AM CDT Height 165.1 cm (5' 5 ) 05/19/2021 10:05 AM CDT Body Mass Index 22.47 05/19/2021 10:05 AM CDT documented in this encounter Progress Notes * Angel Lal MD - 05/19/2021 10:20 AM CDT DATE OF SERVICE: 05/19/2021 Martina Chatterjee : 1990 30 y.o. years old PRIMARY CARE PROVIDER: No, Physician REFERRING PHYSICIAN: Self Referral DIAGNOSIS / COMPLETION / TREATMENT / CHIEF COMPLAINT: Left neck odontogenic abscess -incision and drainage of abscess, 04/11/2021 (Dr. Lal) -dental extraction 04/15/2021 (Oral surgery) HISTORY: Martina Chatterjee was evaluated today in the [facility] Otolaryngology - Head and Neck Surgery Clinic. The patient is accompanied by by her daughter Alessandra. To briefly review, the patient is a 30 y.o. years-old female who underwent an incision and drainageof a left neck odontogenic abscess 1 month ago. She is here for follow-up. She had a dental extraction shortly after the drainage. He has a dental cleaning set up in the next couple of weeks and is committed to brushing and flossing better. He smokes 1 cigarette a day and does smoke marijuana. No other drugs. Some social alcohol use. No pain or issues in the head and neck. PHYSICAL EXAM: Vitals: See electronic medical records for vital signs General Appearance: Well-developed, well-nourished in no apparent distress. Breathing comfortably. Cardiovascular: Extremities are warm and well perfused. Pulmonary: Normal quiet breathing. No respiratory distress, stridor, or wheeze. Facial: Normocephalic, atraumatic. No facial lesions. Eyes: Most conjunctiva. Neuro/Psych: Alert and oriented. Normal affect. Facial nerve and hypoglossal nerve intact bilaterally. Oral Cavity/Oropharynx: No worrisome lesions noted. Well healed left posterior mandibular extraction sites. Neck: No cervical lymphadenopathy or masses present. Salivary gland examination is normal bilaterally. Well-healed left neck incision. Slightly hypertrophic scar. Endocrine: No palpable abnormalities of the thyroid gland. DATA REVIEWED: ASSESSMENT & PLAN: History of left neck odontogenic abscess: Patient is doing well and recovered well. She is very grateful for her care. I counseled the patient to see her dentist twice a year for dental cleaning and2 brush and floss daily and also to encourage her children to do so. Tobacco abuse: I counseled the patient to completely stop tobacco use as well as marijuana. FOLLOW-UP: As needed Angel Lal M.D., FACS [employer] Head and Neck Surgical Oncology, Microvascular Reconstruction Department of Otolaryngology [facility] Past Medical History: Diagnosis Date ??? Dental abscess ??? Encounter for routine follow-up exam - (Added by TW Conv) ??? Preeclampsia Hx of pre eclampsia with at least 2 pregnancies. Past Surgical History: Procedure Laterality Date ??? OTHER SURGICAL HISTORY labial surgery Current Outpatient Medications on File Prior to Visit Medication Sig Dispense Refill ??? chlorhexidine (PERIDEX) 0.12 % solution Apply to the mouth or throat 2 (two) times a day ??? [DISCONTINUED] acetaminophen 500 mg capsule Take 1 capsule (500 mg total) by mouth every 6 (six) hours as needed for pain. 60 tablet 0 ??? [DISCONTINUED] chlorhexidine (PERIDEX) 0.12 % solution Apply 15 mL to the mouth or throat 4 (four) times a day 1800 mL 0 ??? [DISCONTINUED] ferrous sulfate 325 mg (65 mg of elemental iron) tablet Take 1 tablet (325 mg total) by mouth 2 (two) times a day. 60 tablet 5 ??? [DISCONTINUED] ibuprofen (ADVIL,MOTRIN) 600 mg tablet Take 1 tablet (600 mg total) by mouth every 6 (six) hours as needed for pain. 60 tablet 0 ??? [DISCONTINUED] oxyCODONE (ROXICODONE) 5 mg immediate release tablet Take 1 tablet (5 mg total) by mouth every 4 (four) hours as needed for pain 15 tablet 0 ??? [DISCONTINUED] PNV with ixsnoci-vvad-LS ( VITAMIN PLUS LOW IRON) 27 mg iron- 1 mg tablet Take 1 tablet by mouth daily. No current facility-administered medications on file prior to visit. History reviewed. No pertinent family history. Social History Socioeconomic History ??? Marital status: Single Spouse name: Not on file ??? Number of children: Not on file ??? Years of education: Not on file ??? Highest education level: Not on file Occupational History ??? Not on file Tobacco Use ??? Smoking status: Current Every Day Smoker Packs/day: 0.15 Types: Cigarettes ??? Smokeless tobacco: Never Used Vaping Use ??? Vaping Use: Never used Substance and Sexual Activity ??? Alcohol use: No ??? Drug use: No ??? Sexual activity: Yes Partners: Male Other Topics Concern ??? Not on file Social History Narrative ??? Not on file Social Determinants of Health Financial Resource Strain: ??? Difficulty of Paying Living Expenses: Not on file Food Insecurity: ??? Worried About Running Out of Food in the Last Year: Not on file ??? Ran Out of Food in the Last Year: Not on file Transportation Needs: ??? Lack of Transportation (Medical): Not on file ??? Lack of Transportation (Non-Medical): Not on file Physical Activity: ??? Days of Exercise per Week: Not on file ??? Minutes of Exercise per Session: Not on file Stress: ??? Feeling of Stress : Not on file Social Connections: ??? Frequency of Communication with Friends and Family: Not on file ??? Frequency of Social Gatherings with Friends and Family: Not on file ??? Attends Pentecostalism Services: Not on file ??? Active Member of Clubs or Organizations: Not on file ??? Attends Club or Organization Meetings: Not on file ??? Marital Status: Not on file Intimate Partner Violence: ??? Fear of Current or Ex-Partner: Not on file ??? Emotionally Abused: Not on file ??? Physically Abused: Not on file ??? Sexually Abused: Not on file REVIEW OF SYSTEMS: A complete past medical history, family history, social history, and 10 system review of systems was completed by the patient on the Patient History Form and reviewed with the patient during the visit on 05/19/2021. All review of systems not otherwise marked on the form are negative. The Patient History Form can be found in the electronic medical record as a scanned document. documented in this encounter Plan of Treatment Scheduled Referrals Name Type Priority Associated Diagnoses Order Schedule Ambulatory referral to ENT Outpatient Referral Routine Dental abscess Expected: 05/20/2021 (Approximate), Expires: 05/06/2022 documented as of this encounter Visit Diagnoses Diagnosis Dental abscess- Primary Periapical abscess without sinus documented in this encounter Discontinued Medications Medication Sig Discontinue Reason Start Date End Da te chlorhexidine (PERIDEX) 0.12 % solutionIndications:Mout h Infection Prevention Apply 15 mL to the mouth or throat 4 (four) times a day 04/19/2021 05/19/2021 ferrous sulfate 325 mg (65 mg of elemental iron) tabletIndications:Iron deficiency anemia, unspecified iron deficiency anemia type Take 1 tablet (325 mg total) by mouth 2 (two) times a day. 05/22/2018 05/19/2021 oxyCODONE (ROXICODONE) 5 mg immediate release tabletIndications:Pain Take 1 tablet (5 mg total) by mouth every 4 (four) hours as needed for pain 04/19/2021 05/19/2021 PNV with mnoxghs-dmdt-DO ( VITAMIN PLUS LOW IRON) 27 mg iron- 1 mg tablet Take 1 tablet by mouth daily. 12/03/2017 05/19/2021 acetaminophen 500 mg capsuleIndications:Fever ,Pain Take 1 capsule (500 mg total) by mouth every 6 (six) hours as needed for pain. 06/12/2018 05/19/2021 ibuprofen (ADVIL,MOTRIN) 600 mg tabletIndications:Cramps ,Pain Take 1 tablet (600 mg total) by mouth every 6 (six) hours as needed for pain. 06/12/2018 05/19/2021 documented as of this encounter Historical Medications * This list may reflect changes made after this encounter. chlorhexidine (PERIDEX) 0.12 % solution Apply to the mouth or throat 2 (two) times a day added in this encounter Additional Health Concerns Infection Onset Date Last Indicated Resolved Time COVID: Recovered Comment:Pt tested COVID+ 01/31/21. Pt has been afebrile off antipyretics >24hrs. Results in care everywhere. Kristal Hernandez 04/11/2021 02/10/2021 04/11/2021 06/03/2021 3:0 5 AM NETWORK SPECIALIST documented as of this encounter Care Teams Spool Tender Relationship Specialty Start Date End Date No, Physician PCP - General 12/03/17 01/03/23 documented as of this encounter
--- OUTSIDE RECORDS SUMMARY | 2024-07-28 06:39 | XMS_ITS | Encounter Summary ---
Author Organization [facility] Address [facility] [place], [place] [address] [place] [address] Care Team Providers Care Patrol Driver Name Role Phone Unavailable Primary Care Provider Unavailabl e Encounter Details Date Type Department Care Team (Late st Contact Info) Description 04/23/1999 Emergency [facility] [place] [address] , Manisha Mariano MD Social History Tobacco [...]
--- OUTSIDE RECORDS SUMMARY | 2024-07-28 06:39 | XMS_ITS | Encounter Summary ---
Author Organization [facility] Address [address] [place] [address] Phone Care Team Providers Care Looper Operator Name Role Phone Alicia Rodriguez Primary Care Provider + Encounter Details Date Type Department Care Team (Late st Contact Info) Description 08/09/2023 Telephone [facility] Dermatology [facility] [address] [place] [address] Shaan Woo B.A. Social History Tobacco Use Types Packs/Day Years [...] on file Legal Sex Female 1:19 AM THERAPY SITE COORDINATOR Gender Identity Not on file Sexual Orientation Not on file documented as of this encounter Miscellaneous Notes * Telephone Encounter - Shaan Woo B.A. - 08/09/2023 7:08 AM CST Pt has new patient referral scanned into chart under Ref Phys Doc. Please contact pt to schedule. APY SITE COORDINATOR documented in this encounter Plan of Treatment Not on file documented as of this encounter Visit Diagnoses Not on filedocumented in this encounter Care Teams Looper Operator Relationship Specialty Start Date End Date Alicia Rodriguez PA [address] [place] [address] PCP - General Physician Automobile Radio Repairer 01/04/23 documented as of this encounter
--- OUTSIDE RECORDS SUMMARY | 2024-07-28 06:39 | XMS_ITS | Encounter Summary ---
Author Organization [facility] Address [facility] access hospital[facility]. [place], [place] [address] [place] [address] Care Team Providers Care Linemarker Name Role Phone Unavailable Primary Care Provider Unavailabl e Encounter Details Date Type Department Care Team (Late st Contact Info) Description 03/30/1998 Abstract [facility] [address] , Generic Conversion, Social History Tobacco Use [...]
--- OUTSIDE RECORDS SUMMARY | 2024-07-28 06:39 | XMS_ITS | Encounter Summary ---
Author Organization [facility] Address [address] [place] [address] Care Team Providers Care Lockstitch Coat Joiner Name Role Phone Alicia Rodriguez Primary Care Provider + Reason for Visit * Reason Comments New Patient Abscess right upper eyelid * Consultation (Urgent) - Closed Specialty Diagnoses / Procedures Referred By Contac t Referred To Contact Plastic Surgery Diagnoses Abscess Kathy Dumont PA [facility] [place] [address] Phone: tel: fax: [facility] Plastic Surgery [address] [place] [address] [address] [place] [address] Phone: tel: fax: Referral ID Status Reason Start Date Expiration Date V isits Requested Visits Authorized [id number] Closed Specialty Services Required 01/04/2023 02/03/2024 1 1 Encounter Details Date Type Department Care Team (Late st Contact Info) Description 01/10/2023 10:30 AM CDT Office Visit [facility] Plastic Surgery [facility] [facility] [address] [place] [address] Chilo Garcia MD [address] [place] [id number] Abscess Social History Tobacco Use Types Packs/Day Years [...] on file Legal Sex 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 female c/o abscess that recently drained of the right upper eyelid.Patient says she went to the ER twice and they would not drain it. Patient says that several days ago the abscess drained and patient had pus coming from the wound. Patient is presently taking antibiotics from the ER. Patient says that she does have some pain from the abscess but the pain went awaywhen the abscess spontaneously drained. Patient denies any fever chills or bleeding or discharge ROS Review of Systems Constitutional: Negative for appetite change. HENT: Negative for dental problem. Respiratory: Negative for apnea. Endocrine: Negative for polyuria. Musculoskeletal: Negative for neck pain. Past Medical History: Diagnosis Date Dental abscess Encounter for routine follow-up exam - (Added by TW Conv) Preeclampsia Hx of pre eclampsia with at least 2 pregnancies. Past Surgical History: Procedure Laterality Date OTHER SURGICAL HISTORY labial surgery Social History Tobacco Use Smoking status: Every Day Packs/day: 0.15 Types: Cigarettes Smokeless tobacco: Never Substance and Sexual Activity Drug use: No Sexual activity: Yes Partners: Male Alcohol Use: Heavy Drinker (04/11/2021) AUDIT-C Frequency of Alcohol Consumption: 2-4 times a month Average Number of Drinks: 1 or 2 Frequency of Binge Drinking: Less than monthly History reviewed. No pertinent family history. Current Outpatient Medications on File Prior to Visit Medication Sig Dispense Refill doxycycline (VIBRAMYCIN) 100 mg capsule Take 1 tablet/capsule (100 mg total) by mouth 2 (two) timesa day 20 capsule 0 chlorhexidine (PERIDEX) 0.12 % solution Apply to the mouth or throat 2 (two) times a day (Patient not taking: Reported on 01/10/2023) No current facility-administered medications on file prior to visit. Exam Physical Exam Constitutional: Appearance: She is well-developed. HENT: Head: Normocephalic. Eyes: Pupils: Pupils are equal, round, and reactive to light. Cardiovascular: Rate and Rhythm: Normal rate. Pulmonary: Breath sounds: Normal breath sounds. Abdominal: Palpations: Abdomen is soft. Musculoskeletal: Cervical back: Normal range of motion. No fluctuance of right upper eyelid, this areas flat, patient has a small wound in this area Assessment Spontaneously drained right upper eyelid abscess Plan Discussed wound care with normal saline and Q-tip with patient in layman's terms, will see patient back on a p.r.n. basis Chilo Garcia MD 01/10/2023 documented in this encounter Plan of Treatment Not on file documented as of this encounter Visit Diagnoses Diagnosis Abscess Cellulitis and abscess of unspecified site documented in this encounter Orders Outpatient Referral Count Last Ordered Date st Ordered Date AMB REFERRAL TO PLASTIC SURGERY 1 3 documented in this encounter Care Teams Lockstitch Coat Joiner Relationship Specialty Start Date End Date Alicia Rodriguez PA [address] [place] [id number] PCP - General Physician Supervisor Painting Department 01/04/23 documented as of this encounter
--- OUTSIDE RECORDS SUMMARY | 2024-07-28 06:39 | XMS_ITS | Clinical Summary ---
Author Organization [facility] Address [address] [place] [address] Care Team Providers Care Fruit Rancher Name Role Phone Alicia Rodriguez Primary Care [...] PreE warning signs reviewed-instructed to go to [facility] immediately with any s/s History of marijuana [...] pt immune) PPD TEST 05/22/2007 Tdap 07/06/2013,04/23/2013 Surgical History Surgery Date Site/Laterality Comments OTHER SURGICAL HISTORY labial surgery Medical History Medical History Date Comments Encounter for routine postpa rtum follow-up exam - (Added by TW Conv) Preeclampsia Hx of pre eclamp kasia with at least 2 pregnancies. 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 Gender Identity Not on file Sexual Orientation Not on file Obstetrics History Para Term AB IAB SAB Ectopic Multiple Livin g Live Births 5 4 4 0 1 1 0 0 0 4 4 Date Outcome GA Total Labor Labor/2nd/3rd Weight Sex Type Anes PTL Staci A1 A5 Name Clin 2005 Term 40w 0d 3.118 kg (6 lb 14 oz) F Vag-S pont Epidur al N Livin g Complications: Linsey mel Hypertension,Had umbilical cord around neck,Meconium in amniotic fluid 2007 Term 40w 0d 2.948 kg (6 lb 8 oz) M Vag-S pont Epidur al N Livin g Complications:None 2011 IAB 2012 Term 40w 2d 3.374 kg (7 lb 7 oz) M Vag-S pont Epidur al N Livin g Complications:Meconium in am niotic fluid 2017 Term 39w 2d 0h 03m 0h 03m 3.34 kg (7 lb 5.8 oz) F Vag-S pont Epidur al N Livin g 7 9 TUTU AUSTING IRLWH Petey Cote MD Delivery Location:[facility] ([facility]) Last Filed Vital Signs Vital Sign Reading [...] 01/04/2023 9:12 PM CDT Plan of Treatment Health Maintenance Due Date Last Done Comments Cervical Cancer Screening 1988 Varicella Vaccines (1 of 2 - 13+ 2-dose series) 2001 Hepatitis B Screening 2006 Regular Well Visit/Exam 18-64 2006 Depression Screening 06/10/2019 06/10/2018 DTaP/Tdap/Td Vaccine (3 - Td or Tdap) 07/06/2023 07/06/2013, 04/23/2013 Covid-19 Vaccine (4 - 2023-2 5 season) 2024 09/12/2022, 01/10/2022, 12/19/2021 Influenza Vaccine (#1) 2024 , 04/23/2013 Hepatitis C Screening Completed 12/03/2017 , 02/06/2013 HPV Vaccines Aged Out No longer eligi ble based on patient's age to complete this topic Pneumococcal vaccine <65 Aged Out No longer eligible based on patient's age to complete this topic Procedures Procedure Name Priority Date/Time Associated Diagnosis Comments HEPATITIS C ANTIBODY Routine Gen Lab 12/03/2017 12:35 PM CDT from Last 3 Months or Most Recently Relevant to Health Maintenance Results * Hepatitis C antibody (12/03/2017 12:35 PM CDT) Hep C Ab Nonreactive Nonreactive DEJAH WILKERSON Comment: Interpretive Data Positive and greyzone results should be confirmed by a molecular method. If positive or greyzone, a second separately collected sample should be submitted for Hepatitis C Virus RNA. Detection and Quantitation by Real-Time Reverse Operations Mgr-PCR.Current Interpretive data was last revised on 2016. Blood specimen (specimen) 12/03/2017 12:35 PM CDT 12/03/2017 2:02 PM CDT Narrative DEJAH WILKERSON - 12/04/2017 9:34 AM CDT us Klarissa Regan GELATIN DYNAMITE PACKING OPERATOR LAB MICROBIOLOGY - GENERAL ORDERABLES Edited Result - Final DEJAH WILKERSON [facility] [place] [address] from Last 3 Months or Most Recently Relevant to Health Maintenance [place] Advance Directives For more information, please contact: [phone] * Full Code (Latest Code Status on [...] n case of cardiopulmonary arrest Care Teams Fruit Rancher Relationship Specialty Start Date End Date Alicia Rodriguez PA [address] [place] [address] PCP - General Physician Senior Pricing Analyst 01/04/23
--- OUTSIDE RECORDS SUMMARY | 2024-07-28 06:39 | XMS_ITS | Encounter Summary ---
Author Organization [facility] Address [facility] [facility] [place], [place] [id number] [place] [address] Care Team Providers Care Immunology Teacher Name Role Phone Unavailable Primary Care Provider Unavailabl e Encounter Details Date Type Department Care Team (Late st Contact Info) Description 10/02/[address] [facility] [address] [place] [address] , Manisha Mariano MD Social History Tobacco [...]
--- OUTSIDE RECORDS SUMMARY | 2024-07-28 06:40 | XMS_ITS | Encounter Summary ---
Author Organization [facility] Address [address] [place] [address] Care Team Providers Care Children Counselor Name Role Phone No, Physician Primary Care Provider [phone] Encounter Details Date Type Department Care Team (Late st Contact Info) Description 05/21/2018 Orders Only [facility] [address] [facility] 1st [place] [address] Klarissa Regan, WORKFORCE ADVISOR [address] SAM [address] [place] [id number] 36 weeks gestation of Social History Tobacco Use Types Packs/Day Years Used Date Smoking Tobacco: Never Smokeless Tobacco: Never Comments Yes Sex and Gender Information Value Date Recorded Sex Assigned at Not on file Legal Sex Female 1:19 AM ENDOSCOPY REGISTERED NURSE Gender Identity Not on file Sexual Orientation Not on file documented as of this encounter Plan of Treatment Not on file documented as of this encounter Procedures Procedure Name Priority Date/Time Associated Diagnosis Comments N. GONORRHOEAE/C. TRACHOMATIS AMPLIFICATION TEST Routine 05/21/2018 5:44 PM ENDOSCOPY REGISTERED NURSE 36 weeks gestation of GROUP B STREPTOCOCCUS CULTURE Routine 05/21/2018 5:44 PM ENDOSCOPY REGISTERED NURSE 36 weeks gestation of documented in this encounter Results * Group B streptococcal culture Vaginal/Rectal (05/21/2018 5:44 PM ENDOSCOPY REGISTERED NURSE) Report Final Report: Negative [facility] Vaginal/Rectal 05/21/2018 5: 44 PM ENDOSCOPY REGISTERED NURSE 05/21/2018 5:48 PM ENDOSCOPY REGISTERED NURSE Narrative [facility] - 05/24/2018 10:33 AM ENDOSCOPY REGISTERED NURSE Specimen received on an ESwab. Testing performed by [facility] ([phone]). Klarissa Regan NP LAB MICROBIOLOGY - GENERAL ORDERABLES Final Result Performing Organization Address [facility]/ZIP Co de Phone Number [facility] One [facility] Department [place] [address] * N. gonorrhoeae/C. trachomatis amplification test Endocervical (05/21/2018 5:44 PM ENDOSCOPY REGISTERED NURSE) Report Final Report: Negative for: ??Chlamydia trachomatis rRNA Negative for: ??Neisseria gonorrhoeae rRNA [facility] Endocervical 05/21/2018 5:44 PM ENDOSCOPY REGISTERED NURSE 05/21/2018 5:47 PM ENDOSCOPY REGISTERED NURSE Narrative [facility] - 05/23/2018 7:52 AM ENDOSCOPY REGISTERED NURSE Testing performed by the Gen-Probe [employer] APTIMA Combo 2 Assay. This nucleic acid amplification test (NAAT) detects ribosomal RNA (rRNA) from Chlamydia trachomatis and Neisseria gonorrhoeae using target capture,and Jig Mill Operator-Mediated Amplification (TMA). This test is approved by the [place] Food and Drug Administration for endocervical, vaginal, and male urethral swab specimens, in addition to male and female urine specimens. The performance characteristics for these specimen types have been verified by the [facility].The performance characteristics of this assay for pharyngeal and rectal specimens collected from cervical swab collection devices have been validated and verified by the [facility]. Verification studies support a lack of cross reactivity with other Neisseria species considered normal oropharyngeal bacterial dior. Rectal swab specimens containing excess stool may be inhibitory and result in false negatives for Chlamydia trachomatis or Neisseria gonorrhoeae. The performance characteristics of this test have not been evaluated in women or individuals less than 16 years of age. Klarissa Regan NP LAB MICROBIOLOGY - GENERAL ORDERABLES Final Result Performing Organization Address [facility]/State/ZIP Co de Phone Number DEJAH MCCOY [facility] Department [place] [address] documented in this encounter Visit Diagnoses Diagnosis 36 weeks gestation of documented in this encounter Care Teams Children Counselor Relationship Specialty Start Date End Date No, Physician PCP - General 12/03/17 01/03/23 documented as of this encounter
--- OUTSIDE RECORDS SUMMARY | 2024-07-28 06:40 | XMS_ITS | Encounter Summary ---
Author Organization [facility] Address [address] [place] [address] Care Team Providers Care Equipment Operating Engineer Name Role Phone No, Physician Primary Care Provider [phone] Encounter Details Date Type Department Care Team (Late st Contact Info) Description 05/22/2018 Telephone [facility]etrics [facility]necology Clinic [address] [facility] 3rd Floor [address] [place] [address] Klarissa Regan, WATCH INSPECTOR [address] SAM [address] [place] [id number] Social History Tobacco Use Types Packs/Day Years Used Date Smoking Tobacco: Never Smokeless Tobacco: Never Comments Yes Sex and Gender Information Value Date Recorded Sex Assigned at Not on file Legal Sex Female 1:19 AM CLAMP REMOVER Gender Identity Not on file Sexual Orientation Not on file documented as of this encounter Miscellaneous Notes * Telephone Encounter - Klarissa Regan NP - 05/22/2018 9:42 AM CLAMP REMOVER Informed CBC demonstrates mild anemia and recommend beginning Fe BID with orange juice. Also recommend increased fluids to help prevent constipation. Pt verbalized understanding and rx sent to requested pharmacy. P REMOVER documented in this encounter Plan of Treatment Not on file documented as of this encounter Visit Diagnoses Not on filedocumented in this encounter Care Teams Equipment Operating Engineer Relationship Specialty Start Date End Date No, Physician PCP - General 12/03/17 01/03/23 documented as of this encounter
--- OUTSIDE RECORDS SUMMARY | 2024-07-28 06:40 | XMS_ITS | Encounter Summary ---
Author Organization [facility] Healthcare Address [address] [place] [address] Care Team Providers Care Librarian Helper Name Role Phone No, Physician Primary Care Provider [phone] Reason for Visit * Reason Comments Routine Visit Encounter Details Date Type Department Care Team (Late st Contact Info) Description 03/26/2018 2:30 PM CDT Office Visit Obstetrics and Gynecology Clinic [address] [facility] 3rd Floor [address] [place] [address] Meka Delarosa MD [address] [facility] [phone] [place], [place] [id number] Klarissa Regan, DRAGLINE OPERATOR 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 Discharge Disposition: Discharge to home or self care Social History Tobacco Use Types Packs/Day Years Used Date Smoking Tobacco: Never Smokeless Tobacco: Never Comments Yes Sex and Gender Information Value Date Recorded Sex Assigned at Not on file Legal Sex Female 1:19 AM ELECTRICIAN YARD Gender Identity Not on file Sexual Orientation Not on file documented as of this encounter Last Filed Vital Signs Vital Sign Reading Time Taken Comments Blood Pressure 124/66 03/26/2018 2:42 PM CDT Pulse - - Temperature - - Respiratory Rate - - Oxygen Saturation - - Inhaled Oxygen Concentration - - Weight 77.9 kg (171 lb 12.8 oz) 03/26/2018 2:42 PM CDT Height 165.1 cm (5' 5 ) 03/26/2018 2:42 PM CDT Body Mass Index 28.59 03/26/2018 2:42 PM CDT documented in this encounter Patient Instructions * Patient Instructions* Klarissa Regan, DRAGLINE OPERATOR - 03/26/2018 2:30 PM CDT Contact us Office hours: Sunday-Sunday 8:30 AM-4:30 PM Phone number: [phone] Daytime: Call us if you have questions or if you are getting worse after your appointment. If you need to cancel or change your appointment, call during normal clinic hours. We appreciate at least 24 hours notice for cancellations. Call during daytime hours to change your appointment, refill prescriptions, for paperwork or other non-urgent needs. After hours emergencies: If the clinic is not open and you are having a medical problem, you can call us at [phone]. Please wait until the clinic is open for non-urgent needs as this emergency line cannot help with appointments, paperwork or prescriptions. If you have an emergency and cannot wait, please call [phone] or go to the [facility] Emergency room. If you are having a problem with your or are in labor you can go to the [facility] (check in near elevator on first floor) [address] [facility], [address]th [place] [address]. Patient Education Kick Counts in FAMILY MEDIATOR: Kick counts measure how much your baby is moving in your womb. A kick from your baby can be felt asa twist, turn, swish, roll, or jab. It is common to feel your baby kicking at 26 to 28 weeks of . You may feel your baby kick as early as 20 weeks of . Seek care immediately if: ?? You feel your baby kick less as the day goes on. ?? You do not feel any kicks in a day. Contact your healthcare provider if: ?? You feel a change in the number of kicks or movements of your baby. ?? You feel fewer than 10 kicks within 2 hours after counting twice. ?? You have questions or concerns about your baby's movements. Why measure kick counts: Your baby's movement may provide information about your baby's health. He may move less, or not at all, if there are problems. He may move less if he does not have enough room to grow in your uterus (womb). He may also move less if he is not getting enough oxygen or nutrition from the placenta. Tell your healthcare provider as soon as you feel a change in your baby's movements. Problems that are found earlier are easier to treat. When to measure kick counts: ?? Measure kick counts at the same time every day. ?? Measure kick counts when your baby is awake and most active. Your baby may be most active in theevening. ?? Measure kick counts after a meal or snack. Your baby may be more active after you eat. Wait 2 hours after you drink liquids that contain caffeine. Caffeine can make your baby more active than usual. ?? You should not smoke while you are . Smoking increases the risk of health problems for you and for your baby during your . If you do smoke, wait 2 hours to measure kick counts. Nicotine can make your baby more active than usual. How to measure kick counts: Check that your baby is awake before you measure kick counts. You can wake up your baby by lightly pushing on your belly, walking, or drinking something cold. Your healthcare provider may tell you different ways to measure kick counts. He may tell you to do the following: ?? Use a chart or clock to keep track of the time you start and finish counting. ?? Sit in a chair or lie on your left side. ?? Place your hands on the largest part of your belly. ?? Count until you reach 10 kicks. Write down how much time it takes to count 10 kicks. ?? It may take 30 minutes to 2 hours to count 10 kicks. It should not take more than 2 hours to count 10 kicks. ?? If you do not feel 10 kicks within 2 hours, wait 1 hour and count again. Your baby can sleep forup to 40 minutes at one time. Follow up with your healthcare provider as directed: Write down your questions so you remember to ask them during your visits. ?? 2017 [employer] Information is for End User's use only and may not be sold, redistributed or otherwise used for commercial purposes. All illustrations and images included in CareNotes?? are the copyrighted property of [employer] or [employer]. The above information is an psychologist educational only. It is not intended as medical advice for individual conditions or treatments. Talk to your doctor, nurse or pharmacist before following any medical regimen to see if it is safe and effective for you. Patient Education at 27 to 30 Weeks WHAT YOU NEED TO KNOW: What changes are happening in my body? You may notice new symptoms such as shortness of breath, heartburn, or swelling of your ankles and feet. You may also have trouble sleeping or contractions. How do I care for myself at this stage of my ? ?? Eat a variety of healthy foods. Healthy foods include fruits, vegetables, whole-grain breads, low-fat dairy foods, beans, lean meats, and fish. Drink liquids as directed. Ask how much liquid to drink each day and which liquids are best for you. Limit caffeine to less than 200 milligrams each day. Limit your intake of fish to 2 servings each week. Choose fish low in mercury such as canned lighttuna, shrimp, salmon, cod, or tilapia. Do not eat fish high in mercury such as swordfish, tilefish,aristeo mackerel, and shark. ?? Manage heartburn by eating 4 or 5 small meals each day instead of large meals. Avoid spicy food. ?? Manage swelling by lying down and putting your feet up. ?? Take vitamins as directed. Your need for certain vitamins and minerals, such as folic acid, increases during . vitamins provide some of the extra vitamins and minerals you need. vitamins may also help to decrease the risk of certain defects. ?? Talk to your healthcare provider about exercise. Moderate exercise can help you stay fit. Your healthcare provider will help you plan an exercise program that is safe for you during . ?? Do not smoke. If you smoke, it is never too late to quit. Smoking increases your risk of a miscarriage and other health problems during your . Smoking can cause your baby to be born too early or weigh less at . Ask your healthcare provider for information if you need help quitting. ?? Do not drink alcohol. Alcohol passes from your body to your baby through the placenta. It can affect your baby's brain development and cause alcohol syndrome (FAS). FAS is a group of conditions that causes mental, behavior, and growth problems. ?? Talk to your healthcare provider before you take any medicines. Many medicines may harm your baby if you take them when you are . Do not take any medicines, vitamins, herbs, or supplementswithout first talking to your healthcare provider. Never use illegal or street drugs (such as marijuana or cocaine) while you are . What are some safety tips during ? ?? Avoid hot tubs and saunas. Do not use a hot tub or sauna while you are , especially during your first trimester. Hot tubs and saunas may raise your baby's temperature and increase the riskof defects. ?? Avoid toxoplasmosis. This is an infection caused by eating raw meat or being around infected catfeces. It can cause defects, miscarriages, and other problems. Wash your hands after you touch raw meat. Make sure any meat is well- cooked before you eat it. Avoid raw eggs and unpasteurized milk. Use gloves or ask someone else to clean your cat's litter box while you are . What changes are happening with my baby? By 30 weeks, your baby may weigh more than 3 pounds. Your baby may be about 11 inches long from the top of the head to the rump (baby's bottom). Your baby's eyes open and close now. Your baby's kicks and movements are more forceful at this time. What do I need to know about care? Your healthcare provider will check your blood pressureand weight. You may also need the following: ?? Blood tests may be done to check for anemia or blood type. ?? A urine test may also be done to check for sugar and protein. These can be signs of gestational diabetes or infection. Protein in your urine may also be a sign of preeclampsia. Preeclampsia is a condition that can develop during week 20 or later of your . It causes high blood pressure, and it can cause problems with your kidneys and other organs. ?? A Tdap vaccine and flu vaccine may be recommended by your healthcare provider. ?? A gestational diabetes screen will be done using an oral glucose tolerance test (OGTT). An OGTT starts with a blood sugar level check after you have not eaten for 8 hours. You are then given a glucose drink. Your blood sugar level is checked after 1 hour, 2 hours, and sometimes 3 hours. Healthcare providers look at how much your blood sugar level increases from the first check. ?? Fundal height is a measurement of your uterus to check your baby's growth. This number is usually the same as the number of weeks that you have been . Your healthcare provider may also check your baby's position. ?? Your baby's heart rate will be checked. When should I seek immediate care? ?? You develop a severe headache that does not go away. ?? You have new or increased vision changes, such as blurred or spotted vision. ?? You have new or increased swelling in your face or hands. ?? You have vaginal spotting or bleeding. ?? Your water broke or you feel warm water gushing or trickling from your vagina. When should I contact my healthcare provider? ?? You have more than 5 contractions in 1 hour. ?? You notice any changes in your baby's movements. ?? You have abdominal cramps, pressure, or tightening. ?? You have a change in vaginal discharge. ?? You have chills or a fever. ?? You have vaginal itching, burning, or pain. ?? You have yellow, green, white, or foul-smelling vaginal discharge. ?? You have pain or burning when you urinate, less urine than usual, or pink or bloody urine. ?? You have questions or concerns about your condition or care. CARE AGREEMENT: You have the right to help plan your care. Learn about your health condition and how it may be treated. Discuss treatment options with your caregivers to decide what care you want to receive. You always have the right to refuse treatment. The above information is an psychologist educational only. It is not intended as medical advice for individual conditions or treatments. Talk to your doctor, nurse or pharmacist before following any medical regimen to see if it is safe and effective for you. ?? 2016 [employer]. Information is for End User's use only and may not be sold, redistributed or otherwise used for commercial purposes. All illustrations and images included in CareNotes?? are the copyrighted property of [employer] or [employer]. documented in this encounter Discharge Disposition Disposition Code Departure Means Destination Discharge to home or self care documented in this encounter Progress Notes * Klarissa Regan NP - 03/26/2018 2:30 PM CDT Subjective Pt presents today s/p growth u/s. Denies VB, LOF, or ctx and endorses frequent movement. Taking daily PNV but discontinued daily low-dose ASA because she didn't realize she was supposed to continue. Objective See ACOG Problem List 28 weeks gestation of - Primary Overview labs UTD -2T labs reviewed Continue daily PNV S/p completion of anatomy u/s on 02/28 and growth u/s today Reviewed FKCs and s/s of PTL MOD: anticipates MOF: bottle MOC: TBD-discuss next visit RTC in 2 weeks Female fetus Relevant Orders POCT urinalysis dipstick (Completed) History of gHTN with prior Overview Resume daily low-dose ASA- plan to d/c at 36 weeks History of marijuana use Overview Previously reviewed risks to with continued use Continue to abstain for duration of Obtain random UDS each trimester-next due at 36 weeks Nausea and vomiting of , antepartum Overview Encouraged pt to continue small, frequent meals Recommend gum and sipping fluids instead of spitting if possible Continue zofran 8mg ODT prn 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 Fontenot nuchal fold also upper normal limit (5-6mm) and genetic screening offered S/p negative NIPTon 03/12 Marginal insertion of umbilical cord affecting management of mother Overview Discussed today (03/12) Obtain serial u/s for growth q4 weeks Growth u/s 03/26: AGA interval growth 1290g (41st%) documented in this encounter Plan of Treatment Not on file documented as of this encounter Procedures Procedure Name Priority Date/Time Associated Diagnosis Comments POCT URINALYSIS DIPSTICK Routine 03/26/2018 2:45 PM CDT 28 weeks gestation of documented in this encounter Results * (ABNORMAL) POCT urinalysis dipstick (03/26/2018 2:45 PM CDT) Glucose, ur, POC Negative Negative mg/dL Ketones, ur, POC Negative Negative Protein, ur, POC Trace(A) Negative Lot Number [id number] Urine 03/26/2018 2:45 PM CDT Klarissa Regan DRAGLINE OPERATOR POINT OF CARE TEST ORDERAB LES Final Result documented in this encounter Visit Diagnoses Diagnosis 28 weeks gestation of - Primary Nausea and vomiting of , antepartum Marginal insertion of umbilical cord affecting management of mother History of gHTN with prior History of marijuana use 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
--- OUTSIDE RECORDS SUMMARY | 2024-07-28 06:40 | XMS_ITS | Encounter Summary ---
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 [facility] [address] [place] [id number] Elevated blood pressure affecting in third trimester, antepartum Social History Tobacco Use Types Packs/Day Years Used Date Smoking Tobacco: Never Smokeless Tobacco: Never Comments Yes Sex and Gender Information Value Date Recorded Sex Assigned at Not on file Legal Sex Female 1:19 AM AIRFLIGHT ATTENDANTS SUPERVISOR Gender Identity Not on file Sexual Orientation Not on file documented as of this encounter Plan of Treatment Not on file documented as of this encounter Procedures Procedure Name Priority Date/Time Associated Diagnosis Comments PROTEIN / CREATININE RATIO, URINE, RANDOM Routine 06/03/2018 4:54 PM AIRFLIGHT ATTENDANTS SUPERVISOR Elevated blood pressure affecting in third trimester, antepartum CBC WITHOUT DIFFERENTIAL Routine 06/03/2018 4:29 PM AIRFLIGHT ATTENDANTS SUPERVISOR Elevated blood pressure affecting in third trimester, antepartum URIC ACID Routine 06/03/2018 4:29 PM AIRFLIGHT ATTENDANTS SUPERVISOR Elevated blood pressure affecting in third trimester, antepartum COMPREHENSIVE METABOLIC PANEL Routine 06/03/2018 4:29 PM AIRFLIGHT ATTENDANTS SUPERVISOR Elevated blood pressure affecting in third trimester, antepartum documented in this encounter Results * Protein / creatinine ratio, urine, random (06/03/2018 4:54 PM AIRFLIGHT ATTENDANTS SUPERVISOR) [facility] Protein, ur, quant 62.3 mg/dL [facility] Creatinine, ur 348.20 mg/dL [facility] Protein/creatin ine ratio 0.2 Ratio [facility] Urine 06/03/2018 4:54 PM AIRFLIGHT ATTENDANTS SUPERVISOR 06/03/2018 5:15 PM AIRFLIGHT ATTENDANTS SUPERVISOR Narrative [facility] - 06/03/2018 6:30 PM AIRFLIGHT ATTENDANTS SUPERVISOR us Klarissa Regan COMPUTER SCIENCE INSTRUCTOR LAB URINE ORDERABLES Final Result Performing Organization Address [facility]/ZIP Co de Phone Number [facility] [place] [address] * Uric acid (06/03/2018 4:29 PM AIRFLIGHT ATTENDANTS SUPERVISOR) [facility] Uric acid 4.8 2.5 - 7.0 mg/dL [facility] Blood specimen (specimen) 06/03/2018 4:29 PM AIRFLIGHT ATTENDANTS SUPERVISOR 06/03/2018 4:51 PM AIRFLIGHT ATTENDANTS SUPERVISOR Narrative [facility] - 06/03/2018 5:36 PM AIRFLIGHT ATTENDANTS SUPERVISOR us Klarissa Regan COMPUTER SCIENCE INSTRUCTOR LAB BLOOD ORDERABLES Final Result Performing Organization Address [facility] Co de Phone Number [facility] [place] [address] * (ABNORMAL) Comprehensive metabolic panel (06/03/2018 4:29 PM AIRFLIGHT ATTENDANTS SUPERVISOR) [facility] Sodium 134(L) 135 - 145 mmol/L [facility] Potassium, pl 4.1 3.3 - 4.9 mmol/L [facility] Chloride 103 97 - 110 mmol/L [facility] CO2 24 22 - 32 mmol/L [facility] Anion gap 6 2 - 15 mmol/L [facility] BUN 9 8 - 25 mg/dL [facility] Creatinine 0.82 0.60 - 1.10 mg/dL [facility] Glucose 88 70 - 199 mg/dL [facility] Comment: Interpretive Data Fasting glucose >/= 126 mg/dl is diagnostic for diabetes. ?? Fasting is defined as no caloric intake for at least 8 hours. Fasting glucose between 100 mg/dl to 125 mg/dl is diagnostic of prediabetes. In a patient with classic symptoms of hyperglycemia or hyperglycemic crisis, a random glucose >/= 200 mg/dl is diagnostic for diabetes. In the absence of unequivocal hyperglycemia, results should be confirmed by repeat testing. The classification and Diagnosis of Diabetes Diabetes Care 2017;40 (Suppl. 1):S11. Current interpretive data was last revised 2017. Calcium 9.1 8.5 - 10.3 mg/dL [facility] Bilirubin, total 0.3 0.1 - 1.2 mg/dL [facility] Protein, pl 7.3 6.5 - 8.5 g/dL [facility] Albumin 3.4(L) 3.5 - 5.0 g/dL [facility] Alk phos 162(H) 40 - 130 Units/L [facility] ALT 19 7 - 45 Units/L [facility] AST 23 10 - 45 Units/L [facility] Blood specimen (specimen) 06/03/2018 4:29 PM AIRFLIGHT ATTENDANTS SUPERVISOR 06/03/2018 4:51 PM AIRFLIGHT ATTENDANTS SUPERVISOR Narrative [facility] - 06/03/2018 5:36 PM AIRFLIGHT ATTENDANTS SUPERVISOR us Klarissa Regan COMPUTER SCIENCE INSTRUCTOR LAB BLOOD ORDERABLES Final Result [facility] Department [place] [address] * (ABNORMAL) CBC without differential (06/03/2018 4:29 PM AIRFLIGHT ATTENDANTS SUPERVISOR) WBC 10.6(H) 3.8 - 9.9 K/cumm [facility] Hgb 10.8(L) 11.9 - 15.5 g/dL [facility] Hct 34.7(L) 35.6 - 45.5 % [facility] Plt 127(L) 150 - 400 K/cumm [facility] MPV 11.2 9.1 - 12.3 fL [facility] RBC 4.39 3.90 - 5.20 M/cumm [facility] MCV 79.0(L) 81.3 - 96.4 fL [facility] MCH 24.6(L) 27.1 - 33.3 pg [facility] MCHC 31.1(L) 32.3 - 35.7 g/dL [facility] RDW CV 15.0(H) 11.1 - 14.9 % [facility] RDW SD 43.0 35.7 - 48.1 fL [facility] NRBC abs 0.02(H) 0.00 - 0.01 K/cumm [facility] Blood specimen (specimen) 06/03/2018 4:29 PM AIRFLIGHT ATTENDANTS SUPERVISOR 06/03/2018 4:51 PM AIRFLIGHT ATTENDANTS SUPERVISOR Narrative [facility] - 06/03/2018 5:23 PM AIRFLIGHT ATTENDANTS SUPERVISOR us Klarissa Regan COMPUTER SCIENCE INSTRUCTOR LAB BLOOD ORDERABLES Final Result [facility] Department [place] [address] documented in this encounter Visit Diagnoses Diagnosis Elevated blood pressure affecting in third trimester, antepartum documented in this encounter Care Teams Alumni Secretary Relationship Specialty Start Date End Date No, Physician PCP - General 12/03/17 01/03/23 documented as of this encounter
--- OUTSIDE RECORDS SUMMARY | 2024-07-28 06:40 | XMS_ITS | Encounter Summary ---
Author Organization [facility] Address [address] [place] [address] Care Team Providers Care Supervisor Heading Name Role Phone No, Physician Primary Care Provider [phone] Encounter Details Date Type Department Care Team (Late st Contact Info) Description 04/11/2021 9:54 AM CDT Anesthesia Event [facility] Operating Room [address] [place] [address] Abhay Henry MD [address] [place] [address] Leslie Kim, PIER HAND [address] [facility] [id number] [place] [address] Anesthesia Record Procedure Summary Procedure Name Responsible Anesthesiologist Anesthesia Start Time Anesthesia Stop Time INCISION AND DRAINAGE - ORAL CAVITY (Left: Mouth) Abhay Henry MD 04/11/21 0954 04/11/21 1126 Events Date Time Event Comment 04/11/2021 0835 In Preop 0900 0945 Quick Note 5mL of Lidocain e 4% administered via neb 0953 In Room 0954 An Start 0954 An Start Data 0957 An Induction The patient was reevaluated immediately before moderate or deep sedation use and before anesthesia induction. 1018 An Intubation 1021 Anesthesia Ready 1034 Incision Start 1034 Proc Start 1102 Proc Fin 1111 An Extubation 1111 an stop data 1113 Out of Room 1126 Handoff to RN I completed my handoff to the receiving nurse during which we: 1. Patient identified 2. Responsible provider identified 3. Pertinent medical history reviewed 4. Procedure type and surgical course discussed 5. Intraoperative anesthetic management and any significant issues discussed 6. Expectations and concerns for postop period discussed 7. Questions solicited from receiving nurse 8. Patient disposition at the time of handoff: PACU 1126 An Stop Meds Name Total midazolam PF 2 mg lidocaine (cardiac) syringe 2 % 60 mg propofol 150 mg fentaNYL 50 mcg HYDROmorphone 2 mg/mL 0.2 mg phenylephrine 100 mcg/mL 200 mcg ondansetron PF (ZOFRAN) 2 mg/mL injectio n 4 mg glycopyrrolate 0.3 mg lidocaine 4 % solution 5 mL lidocaine (GLYDO) jelly 2 % 2 applicatio n (deactivated) dexmedeTOMIDine infusion 33.56 mcg ketamine 10 mg/mL 50 mg dexamethasone 4 mg/mL 10 mg ampicillin-sulbactam 3 g Lactated Ringer's (LR) infusion 500 mL * Agents Name O2% N2O O2 Air Sevoflurane Inspired Sevoflurane * Blood No blood administrations on file. Lines, Drains, and Airways Type Details Placement Removal NG/OG/Gastric tube Placement Date: 04/11/21; Placement Time: 1052; Inserted by: Derrick Fitzgerald; Type: Nasogastric; Size: 10 Fr; Location: Left nostril 04/11/21 1052 by Khadar Campbell Closed/Suction/Open Drain 04/11/21; 1105; Left; Neck; 14 Fr. 04/11/21 1105 by Khadar Campbell Peripheral IV Placement Date: 04/11/21; Placement Time: 031; Catheter Size: 20 G; Orientation: Right; Location: Antecubital; Removal Date: 04/15/21; Removal Time: 0030; Removal Reason: Site change 04/11/21 031 by Jessie Olivas RN 04/15/21 003 by Thelma Castillo RN ETT Placement Date: 04/11/21; Placement Time: 1028 (created via procedure documentation); Mask Ventilation: 0; Technique: Flexible bronchoscopy; Type: HENRY tube; Single Lumen Tube Size: 6.5 mm; Cuffed: Yes; Location: Oral; Insertion Attempts: 1; Placement Verification: Auscultation, Capnometry; Removal Date: 04/11/21; Removal Time: 1111 04/11/21 1028 by Kari Pritchard MD 04/11/21 1111 by Kari Pritchard MD RETIRED Surgical Site 04/11/21; 1036; Mouth; 06/17/24 (Retired LDA, Removed/Completed by Epic with LDA Utility); 1213 (Retired LDA, Removed/Completed by Epic with LDA Utility) 04/11/21 1036 by Khadar Campbell 06/17/24 1213 by Discharge Provider, Automatic RETIRED Surgical Site 04/11/21; 1055; Le ft; Neck; 06/17/24 (Retired LDA, Removed/Completed by Epic with LDA Utility); 1213 (Retired LDA, Removed/Completed by [facility] with LDA Utility) 04/11/21 1055 by Khadar Campbell 06/17/24 1213 by Discharge Provider, Automatic documented in this encounter Social History Tobacco Use Types Packs/Day Years Used Date Smoking Tobacco: Never Smokeless Tobacco: Never Alcohol Use Standard Drinks/Week [...] on file 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 Gender Identity Not on file Sexual Orientation Not on file documented as of this encounter OR Notes * Anesthesia Postprocedure Evaluation - Jim Patricia MD - 04/11/2021 12:30 PM CDT Patient: Martina Chatterjee Procedure Summary Date: 04/11/21 Room / Location: [facility] OR POD 5 ROOM 218 / [facility] OR POD 5 Anesthesia Start: 953 Anesthesia Stop: 1126 Procedures: INCISION AND DRAINAGE - ORAL CAVITY (Left Mouth) INCISION AND DRAINAGE - NECK (Left Neck) Diagnosis: Dental abscess (Dental abscess [K04.7]) Surgeons: Angel Lal MD Responsible Provider: Abhay Henry MD Anesthesia Type: general ASA Status: 2 Anesthesia Type: general Last vitals BP 144/98 Pulse 98 Temp 36.6 ??C (97.9 ??F) (Temporal) Resp 16 SpO2 98% Anesthesia Post Evaluation Patient location during evaluation: PACU Patient participation: complete - patient participated Level of consciousness: fully awake Pain score: 4 Pain management: adequate Airway patency: patent Evidence of recall: no Cardiovascular status: acceptable Respiratory status: acceptable Hydration status: acceptable Pt is: normothermic Nausea/Vomiting status: none No complications documented. * Anesthesia Procedure Notes - Kari Pritchard MD - 04/11/2021 10:28 AM CDTAssociated Order(s): Airway Airway Patient location: OR Urgency: elective Indications for airway management: anesthesia Difficult airway: no Staff: Supervising provider: Abhay Henry MD Placed by: Resident: Kari Pritchard MD Emergent airway documentation: Risks and benefits discussed: yes Consent obtained: yes Consent given by: patient Airway prep: Preoxygenated: yes Patient position: sniffing MILS maintained throughout: yes Mask difficulty assessment: 0 - not attempted Spontaneous ventilation during airway: present Sedation level during airway: GA Final airway details: Final airway type: endotracheal airway Tube type: HENRY tube ETT size: 6.5 mm Cuffed: yes Technique used for successful ETT placement: flexible bronchoscopy Insertion site: oral Cuff inflated with: air Placement verified by: auscultation and CO2 detection Airway secured with: silk tape Number of attempts: 1 Planned trial extubation: yes * Anesthesia Preprocedure Evaluation - Abhay Henry MD - 04/11/2021 8:30 AM CDT Images from the original note were not included. 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 female Procedure(s): INCISION AND DRAINAGE - ORAL CAVITY INCISION AND DRAINAGE - NECK DENTAL EXTRACTIONS MULTIPLE Pre-Op Diagnosis Codes: * Dental abscess [K04.7] HISTORY HPI Martina Chatterjee is a 30 year old female with dental abscess Procedure(s): INCISION AND DRAINAGE - ORAL CAVITY, INCISION AND DRAINAGE - NECK DENTAL EXTRACTIONS MULTIPLE. findings of left rack puncher space abscess. Pt has had left sided dental pain x1 week, was seen at , pt was prescribed penicillin and was taking for 2 days, today pt wasunable to open mouth today to take medication due to pain. <<potential difficult airway, pt is unable to open mouth to allow space between the teeth>> Past Medical History Information obtained from: patient and chart. Neurological Pertinent negatives: seizures; neuromuscular disease; CVA/stroke; TIA; CEA; ICA stenosis; dementia/mild cognitive impairment and carotid artery stent Cardiovascular Pertinent negatives: hypertension ; CAD ; NV ; CABG ; valvular heart disease; valve replacement; atrial fibrillation; arrhythmia; pacemaker/ICD; PVD; DVT/PE; negative for CHF; drug-eluting stent(s); bare metal stent(s) and coronary angioplasty Respiratory Pertinent negatives: COPD; asthma; sleep apnea (ALLI); pulmonary hypertension; no O2 use outside thehospital and non-smoker Hepatic / Heme + History of anemia Pertinent negatives: liver disease; history of thrombocytopenia and history of Jeronimo positive Gastrointestinal Pertinent negatives: GERD and hiatal hernia Renal / Pertinent negatives: renal disease; dialysis and nephrolithiasis Musculoskeletal/Pain Pertinent negatives: chronic pain; chronic opioid use and previous treatment for opioid use disorder Endocrine / Other + Infectious disease (tooth abscess, left lower mouth) Pertinent negatives: diabetes mellitus; thyroid disease; obesity (BMI >30); cancer history; rheumatological disease and transplanted organ Functional Capacity Functional capacity: 4-6 METs Comments: Pt is able to walk 3-4 blocks w/o SOB/Cp. Day of Surgery assessments + Possibility of assessed Comments: LMP 02/2021 Review of Systems Pertinent negatives: productive cough; wheezing; SOB; recent cold/flu; fever; chest pain; palpitations; orthopnea; pedal edema; PND; heavy menses; Sickle Cell disease/trait; previous transfusion; transfusion reaction; melena/hematochezia; easy bruising; bleeding problems; syncope; dizziness; muscleweakness; chronic pain; numbness/tingling; hard of hearing; vision loss; heartburn; nausea; dysphagia; diarrhea; dentures/partials; chipped/loose teeth; abdominal pain; diaphoresis and no unexpected weight change PAT Summary and Plans Cardiac risk classification of planned procedure: low cardiac risk. Preoperative assessment status: complete. Initial preoperative evaluation discussed with: Neida Lamas MD Additional comments: Martina Chatterjee is a 30 y.o. female who is being evaluated prior to undergoing a low cardiac risk surgery. Revised Cardiac Risk Index factors are (none) for a total RCRI of 0 out of 6. Functional capacity is 4-6 METs. <<potential difficult airway, pt is unable to open mouth to allow space between the teeth>> Obstructive sleep apnea (ALIL) screening status is STOP-Bang=0 suggesting low risk for ALLI. Blood bank needs for day of procedure: No type and screen needed Pending labs/tests include: CBC- reviewed in paper chart from OSH 04/10/2021 Urine HCG-negative from 04/10/2021. Patient's COVID19 status is: COVID: Recovered. Patient's COVID-19 vaccination status is Not vaccinated. . Plan for pre-procedure COVID19 testing: Patient previously tested positive for COVID-19 (01/31/2021). Patient did not require hospitalization or ICU admission for COVID19. Patient's last date ofsymptoms was 02/2021. Retesting not indicated. Okay to proceed with surgery at least 15 days from positive test result. IPAP complete. Preoperative evaluation performed by Dipti Clements NP on 04/11/21 at 8:32 AM.. Patient Active Problem List Diagnosis ??? 38 weeks gestation of ??? History of gHTN with prior ??? History of marijuana use ??? 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 Marginal insertion of umbilical cord affecting management of mother ??? Vaginal candidiasis ??? Iron deficiency anemia ??? Labor and delivery, indication for care ??? Spontaneous vaginal delivery ??? Dental abscess Past Medical History: Diagnosis Date ??? Dental abscess ??? Encounter for routine follow-up exam - (Added by TW Conv) ??? Preeclampsia Hx of pre eclampsia with at least 2 pregnancies. History reviewed. No pertinent surgical history. OB History 5 Para 4 Term 4 0 AB 1 Living 4 SAB 0 TAB 1 Ectopic 0 Multiple 0 Live Births 4 Allergies Allergen Reactions ??? Sulfa (Sulfonamide Antibiotics) Rash Taking? Last Dose Start Date End Date Provider acetaminophen 500 mg capsule 06/12/18 -- Kenna Bermudez PIER HAND Take 1 capsule (500 mg total) by mouth every 6 (six) hours as needed for pain. ferrous sulfate 325 mg (65 mg of elemental iron) tablet 05/22/18 -- Klarissa Regan NP Take 1 tablet (325 mg total) by mouth 2 (two) times a day. ibuprofen (ADVIL,MOTRIN) 600 mg tablet 06/12/18 -- Kenna Bermudez PIER HAND Take 1 tablet (600 mg total) by mouth every 6 (six) hours as needed for pain. PNV with oirnece-jfbp-QV ( VITAMIN PLUS LOW IRON) 27 mg iron- 1 mg tablet 12/03/17 -- Provider, MD Kentrell Current Facility-Administered Medications: ??? morphine injection 4 mg, 4 mg, intravenous, Q2H PRN, 4 mg at 04/11/21 0444 Current Outpatient Medications: ??? acetaminophen 500 mg capsule ??? ferrous sulfate 325 mg (65 mg of elemental iron) tablet ??? ibuprofen (ADVIL,MOTRIN) 600 mg tablet ??? PNV with bdpollf-uycs-EA ( VITAMIN PLUS LOW IRON) 27 mg iron- 1 mg tablet Social History Tobacco Use Smoking Status Never Smoker Smokeless Tobacco Never Used Substance and Sexual Activity Alcohol Use No Substance and Sexual Activity Drug Use No History reviewed. No pertinent family history. PAT Physical Exam Airway Exam: Mallampati: see comments Cervical ROM: FROM TM distance: 3 Patient presents with poor mouth opening. (Pt is unable to open mouth to allow space between teeth 2/2 tooth abscess) Cardiovascular Exam: Rate: regular Rhythm: regular Negative for peripheral edema Pulmonary Exam: LCTA, bilat EENT Exam: trachea midline Dental Exam: Appears intact Skin Exam: Skin is warm. Turgor is normal. Abdominal exam: Abdomen is soft. Bowel sounds are present. Current state: Patient's current state is cooperative. Additional comments: AXOX4 Relevant diagnostics: ECG(s): N/A Echocardiogram(s): N/A Stress test(s): N/A Cardiac catheterization(s): N/A PFT(s): N/A Vascular studies: N/A Other: 04/11/2021-CT scan pending. Vitals: 04/11/21 0600 04/11/21 0700 04/11/21 0800 BP: 124/90 122/81 127/96 Pulse: 72 72 85 Resp: Temp: SpO2: 96% 92% 93% PT: No results found for requested labs within last 720 hours. INR: No results found for requested labs within last 720 hours. APTT: No results found for requested labs within last 720 hours. Hgb A1C: No results found for requested labs within last 720 hours. CBC RBC: No results found for requested labs within last 720 hours. RDW: No results found for requested labs within last 720 hours. MCHC: No results found for requested labs within last 720 hours. MCH: No results found for requested labs within last 720 hours. MCV: No results found for requested labs within last 720 hours. Hct: No results found for requested labs within last 720 hours. Hgb: No results found for requested labs within last 720 hours. WBC: No results found for requested labs within last 720 hours. MPV: No results found for requested labs within last 720 hours. Platelets: No results found for requested labs within last 720 hours. RDW CV: No results found for requested labs within last 720 hours. RDW Sd: No results found for requested labs within last 720 hours. BMP Glucose: No results found for requested labs within last 720 hours. Calcium: No results found for requested labs within last 720 hours. Sodium: No results found for requested labs within last 720 hours. Potassium: No results found for requested labs within last 720 hours. CO2: No results found for requested labs within last 720 hours. Chloride: No results found for requested labs within last 720 hours. BUN: No results found for requested labs within last 720 hours. Creatinine: No results found for requested labs within last 720 hours. DOS Physical Exam Medical history, medications, and allergies reviewed. Attestation: With today's edits, I endorse the the findings of the H&P dated: 04/11/2021. Airway Exam: Mallampati: unable to eval Cervical ROM: FROM TM distance: normal Patient presents with poor mouth opening. (Unable to fully evaluate airway 2/2 inability to open mouth) Cardiovascular Exam: Rate: regular Rhythm: regular Dental Exam: Appears intact Current state: Patient's current state is cooperative and interactive. Anesthesia Plan ASA 2 Planned anesthesia: General Team communication plan: nasal ET tube and fiberoptic Comments: Awake fiberoptic intubation 2/2 inability to open mouth Induction: Induction: intravenous. Postoperative Plan: Postoperative administration opioids intended. No postoperative mechanical ventilation intended. Patient's planned disposition post procedure is Floor. Planned trial extubation. Informed Consent: Discussed plan with resident. Anesthesia plan and risks discussed with patient. Plan and Consent Comments: The risks and benefits and risks of anesthesia were discussed with patient/sales representatives. Risks ofanesthesia include, but are not limited to, sore throat, vocal cord injury, dental injury, nausea, vomiting, and adverse medication reaction. The patient/sales representatives understands these risks and isin agreement to proceed with anesthesia. Discussed with patient/sales representatives the possibility of any transfusion of blood products (packed red blood cells (PRBCs), fresh frozen plasma (FFP), platelets, cryoprecipitate) and the risks/benefits. Risks include, but are not limited to, irritation at IV site, temporary transfusion reaction with fever and chills, bacterial or viral infection, heart and/or lung failure from fluid overload, anddeath. Patient/sales representatives understands risks and consents to blood if it is needed. Consent and Attending signature: I and/or my designee have discussed the anesthesia plan, benefits, possible alternatives, parental presence at time of induction (if indicated), and clinically relevant risks that may include dental injury, unintentional awareness, and/or other complications. The patient and/or parent/legal guardian understand, and agree to proceed. All questions answered. documented in this encounter Plan of Treatment Not on file documented as of this encounter Procedures Procedure Name Priority Date/Time Associated Diagnosis Comments ANESTHESIA INTUBATION Routine 04/11/2021 10:28 AM CDT documented in this encounter Results * Airway (04/11/2021 10:28 AM CDT) Narrative Kari Pritchard MD - 04/11/2021 10:28 AM CDT Kari Pritchard MD ? 04/11/2021 10:28 AM Airway Patient location: OR Urgency: elective Indications for airway management: anesthesia Difficult airway: no Staff: Supervising provider: Abhay Henry MD Placed by: Resident: Kari Pritchard MD Emergent airway documentation: Risks and benefits discussed: yes Consent obtained: yes Consent given by: patient Airway prep: Preoxygenated: yes Patient position: sniffing MILS maintained throughout: yes Mask difficulty assessment: 0 - not attempted Spontaneous ventilation during airway: present Sedation level during airway: GA Final airway details: Final airway type: endotracheal airway Tube type: HENRY tube ETT size: 6.5 mm Cuffed: yes Technique used for successful ETT placement: flexible bronchoscopy Insertion site: oral Cuff inflated with: air Placement verified by: auscultation and CO2 detection Airway secured with: silk tape Number of attempts: 1 Planned trial extubation: yes us Abhay Henry MD ANESTHESIA ORDERAB LES Final Result documented in this encounter Visit Diagnoses Not on filedocumented in this encounter Administered Medications Inactive Administered Medications - up to 3 most recent administrations Medication Order MAR Action Action Date Dose Rate Site ampicillin-sulbactam (UNASYN) injection intravenous, As needed, Starting on Sun04/11/21 at 1018, Anesthesia Intra-op Given 04/11/2021 10:18 AM CDT 3 g dexAMETHasone (DECADRON) 4 mg/mL injection intravenous, Administer over 2 Minutes, As needed, Starting on Sun04/11/21 at 1045, Anesthesia Intra-op Given 04/11/2021 10:45 AM CDT 10 mg dexmedeTOMIDine in 0.9% sodium chloride (PRECEDEX) 200 mcg/50 mL (4 mcg/mL) infusion (premix) intravenous, Continuous PRN, Starting on Sun04/11/21 at 0957, Anesthesia Intra-op New Bag 04/11/2021 9:57 AM CDT 1 mcg/kg/hr 20.975 mL/hr fentaNYL (SUBLIMAZE) preservative free injection intravenous, As needed, Starting on Sun04/11/21 at 1025, Anesthesia Intra-op Given 04/11/2021 10:25 AM CDT 50 mcg glycopyrrolate (ROBINUL) injection intravenous, Administer over 1 Minutes, As needed, Starting on Sun04/11/21 at 0945, Anesthesia Intra-op Given 04/11/2021 9:45 AM CDT 0.3 mg HYDROmorphone (DILAUDID) injection intravenous, Administer over 2 Minutes, As needed, Starting on Sun04/11/21 at 1043, Anesthesia Intra-op Given 04/11/2021 10:43 AM CDT 0.2 mg ketamine (KETALAR) injection intravenous, Administer over 2 Minutes, As needed, Starting on Sun04/11/21 at 1007, Anesthesia Intra-op Given 04/11/2021 10:07 AM CDT 50 mg Lactated Ringer's (LR) infusion 30 mL/hr, intravenous, Continuous, Starting on Sun04/11/21 at 1000, Pre-Op New Bag 04/11/2021 9:54 AM CDT lidocaine (cardiac) (XYLOCAINE) preservative free injection intravenous, As needed, Starting on Sun04/11/21 at 1015, Anesthesia Intra-op, Indications: Ventricular ArrhythmiasIndication s:Ventricular Arrhythmias Given 04/11/2021 10:15 AM CDT 60 mg lidocaine (GLYDO) 2 % jelly topical, As needed, Starting on Sun04/11/21 at 0949, Anesthesia Intra-op Given 04/11/2021 9:49 AM CDT 2 application (deactivated) lidocaine (XYLOCAINE) 4 % (40 mg/mL) external solution topical, As needed, Starting on Sun04/11/21 at 0945, Anesthesia Intra-op Given 04/11/2021 9:45 AM CDT 5 mL midazolam (VERSED) 1 mg/mL preservative free injection intravenous, Administer over 2 Minutes, As needed, Starting on Sun04/11/21 at 0951, Anesthesia Intra-op Given 04/11/2021 9:51 AM CDT 2 mg ondansetron (ZOFRAN) injection intravenous, Administer over 2 Minutes, As needed, Starting on Sun04/11/21 at 1048, Anesthesia Intra-op Given 04/11/2021 10:48 AM CDT 4 mg phenylephrine (KLAUDIA-SYNEPHRINE) 1 mg/10 mL (100 mcg/mL) in sodium chloride 0.9% (premix) intravenous, As needed, Starting on Sun04/11/21 at 1029, Anesthesia Intra-op Given 04/11/2021 10:29 AM CDT 100 mcg Given 04/11/2021 10:20 AM CDT 100 mcg propofoL (DIPRIVAN) 10 mg/mL IV intravenous, As needed, Starting on Sun04/11/21 at 1014, Anesthesia Intra-op Given 04/11/2021 10:14 AM CDT 150 mg documented in this encounter Additional Health Concerns Infection Onset Date Last Indicated Resolved Time COVID: Recovered Comment:Pt tested COVID+ 01/31/21. Pt has been afebrile off antipyretics >24hrs. Results in care everywhere. 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
--- OUTSIDE RECORDS SUMMARY | 2024-07-28 06:40 | XMS_ITS | Encounter Summary ---
Author Organization [facility] Healthcare Address [address] [place] [address] Care Team Providers Care Major Assembly Lineman Name Role Phone No, Physician Primary Care Provider [phone] Encounter Details Date Type Department Care Team (Late st Contact Info) Description 06/10/2018 7:15 AM AGRICULTURAL ECONOMICS PROFESSOR Anesthesia Event [facility] [address] [place] [address] Royce Raygoza MD [address] [place] [address] Anesthesia Record Procedure Summary Procedure Name Responsible Anesthesiologist Anesthesia Start Time Anesthesia Stop Time Labor Analgesia Royce Raygoza MD 06/10/18 071 5 06/10/18 1833 Events Date Time Event Comment 06/10/2018 0700 0715 An Start 0715 Face Time 0722 Time out - Regional 0744 Epidural Placed 0750 Quick Note Test dose (5 ml of CADD solution) 0839 Face Time Epidural level at T10 bilaterally. 1833 An Stop Baby Delivery: 06/10/2018 ??6:09 PM Placenta Delivery: 06/10/2018 ??6:12 PM Meds Name Total SUFentanil (SUFENTA) 5 mcg, bupivacaine (MARCAINE) 2 mL in sodium chloride 0.9% 10 mL epidural 10 mL SUFentanil (SUFENTA) 5 mcg, bupivacaine (MARCAINE) 2 mL in sodium chloride 0.9% 10 mL epidural 106.5 mL * Agents No agents on file. * Blood No blood administrations on file. Lines, Drains, and Airways Type Details Placement Removal Peripheral IV Placement Date: 06/10/18; Placement Time: 0600; Catheter Size: 18 G; Orientation: Left; Location: Forearm; Inserted by: Luiz Rutherford RN; Removal Date: 06/12/18; Removal Time: 0810 06/10/18 0600 by Myriam Aldana RN 06/12/18 0810 by Mayte Nolasco RN Epidural Placement Date: 06/10/18; Placement Time: 0744 (created via procedure documentation); 06/10/18; 199906/10/18 0744 by Meir Damon MD 06/10/181999 by Bee Jerez CNM Urethral Catheter Placement Date: 06/10/18; Placement Time: 0830; Inserted by: Georgina TURNER; Type: Non-latex; Size: 16 Fr.; Balloon Size: 10 mL; Urine Returned: Yes; Removal Date: 06/10/18; Removal Time: 1800 06/10/18 0830 by Felipa Erickson RN 06/10/18 1800 by Felipa Erickson RN documented in this encounter Social History Tobacco Use Types Packs/Day Years Used Date Smoking Tobacco: Never Smokeless Tobacco: Never Alcohol Use Standard Drinks/Week Comments No 0 (1 standard drink = 0.6 oz pur e alcohol) Comments No Sex and Gender Information Value Date Recorded Sex Assigned at Not on file Legal Sex Female 1:19 AM AGRICULTURAL ECONOMICS PROFESSOR Gender Identity Not on file Sexual Orientation Not on file documented as of this encounter OR Notes * Anesthesia Postprocedure Evaluation - Derrick Friedman MD - 06/11/2018 8:00 AM CST Patient: Martina Chatterjee Procedure Summary Date: 06/10/18 Room / Location: Anesthesia Start: 714 Anesthesia Stop: 1832 Procedure: Labor Analgesia Diagnosis: Scheduled Providers: Responsible Provider: Royce Raygoza MD Anesthesia Type: epidural ASA Status: 2 Anesthesia Type: epidural Last vitals BP 113/72 (BP Location: Right arm, Patient Position: Sitting) Pulse 87 Temp 36.5 ??C (97.7 ??F)(Oral) Resp 18 SpO2 100% Anesthesia Post Evaluation Patient location during evaluation: floor Patient participation: complete - patient participated Level of consciousness: fully awake Pain management: satisfactory to patient Airway patency: adequate and patent Anesthetic complications: no Cardiovascular status: acceptable Respiratory status: acceptable Hydration status: acceptable Pt is: normothermic Nausea/Vomiting status: none Comments: Patient denies headache, fevers, chills, rigors, nausea/vomiting, tingling/weakness/numbness, excessive pain/edema/drainage/erythema at needle puncture site. Patient taking PO, ambulating, urinating without Atkinson catheter. Puncture site examined - no appreciable induration, erythema, swelling, drainage. Patient counseled on signs/symptoms of epidural abscess/hematoma and post dural puncture headache. Patient advised to seek immediate medical attention should she appreciate any of these. Patient voices understanding. Cosigned by Cecil Daly MD PhD at 06/11/2018 8:13 AM AGRICULTURAL ECONOMICS PROFESSOR CULTURAL ECONOMICS PROFESSOR CULTURAL ECONOMICS PROFESSOR * Anesthesia Procedure Notes - Royce Raygoza MD - 06/10/2018 7:32 AM CSTAssociated Order(s): ANESTHESIA EPIDURAL BLOCK Epidural Block Patient location: L&D Reason for block: labor analgesia Staff: Supervising Anesthesiologist: ROYCE RAYGOZA Placed by: Resident: MEIR DAMON Procedure prep: Preprocedure checklist: patient identified, procedure contraindications assessed, procedure consentobtained, surgical consent, IV checked, risks, benefits and alternatives discussed, monitors and equipment checked and timeout performed Patient Position: sitting Procedure performed while patient: awake Monitoring: oximetry and blood pressure Supplemental oxygen: nasal cannula Prep solution: chlorhexadine/alcohol PPE: provider hat/mask, sterile gloves and sterile drape Epidural: Approach: midline Location: L3-4 Epidural needle: Injection technique: SANTOS saline Needle type: Tuohy Needle gauge: 17 G Needle length: 9 cm Loss of resistance: 8 cm Catheter: Catheter type: multi-orifice and wire-bound. Catheter at skin depth: 14 cm Negative aspiration of blood: no Negative aspiration of CSF: no Test dose: negative. Assessment: Events: patient tolerated procedure well with no complications CULTURAL ECONOMICS PROFESSOR * Anesthesia Preprocedure Evaluation - Royce Raygoza MD - 06/10/2018 7:30 AM CST Anesthesia Evaluation Martina Chatterjee is a 27 y.o. female * No procedures listed * HISTORY Past Medical History Information obtained from: patient and chart. Patient Active Problem List Diagnosis ??? 38 weeks gestation of ??? History of gHTN with prior ??? History of marijuana use ??? 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 Marginal insertion of umbilical cord affecting management of mother ??? Vaginal candidiasis ??? Iron deficiency anemia ??? Labor and delivery, indication for care Past Medical History: Diagnosis Date ??? Encounter for routine follow-up exam - (Added by TW Conv) ??? Preeclampsia Hx of pre eclampsia with at least 2 pregnancies. History reviewed. No pertinent surgical history. OB History Para Term AB Living 5 3 3 0 1 3 SAB TAB Ectopic Multiple Live Births 0 1 0 0 3 Allergies Allergen Reactions ??? Sulfa (Sulfonamide Antibiotics) Rash HOME MEDICATIONS : aspirin 81 mg chewable tablet ferrous sulfate 325 mg (65 mg of elemental iron) tablet metroNIDAZOLE (FLAGYL) 500 mg tablet ondansetron ODT (ZOFRAN-ODT) 8 mg disintegrating tablet PNV with enrkefs-btla-KD ( VITAMIN PLUS LOW IRON) 27 mg iron- 1 mg tablet Current Facility-Administered Medications: ??? aspirin chewable tablet 81 mg, 81 mg, oral, Daily ??? dextrose 5% and Lactated Ringer's infusion, 125 mL/hr, intravenous, Continuous, Last Rate: 125 mL/hr at 06/10/18 0700, 125 mL/hr at 06/10/18 0700 ??? ferrous sulfate tablet 325 mg, 65 mg of elemental iron, oral, BID ??? Lactated Ringer's (LR) infusion - ADS Override Pull, , , ??? oxytocin 30 units in 500 mL sodium chloride 0.9% (premix), 95-334 milliunits/min, intravenous, Continuous ??? PNV with zehdulo-gtsf-RM tablet 1 tablet, 1 tablet, oral, Daily ??? sodium chloride 0.9% flush 0.5-20 mL, 0.5-20 mL, intra-catheter, Q8H OSKAR ??? sodium chloride 0.9% flush 0.5-20 mL, 0.5-20 mL, intra-catheter, PRN Social History Smoking Status ??? Never Smoker Smokeless Tobacco ??? Never Used Alcohol Use No Drug Use No History reviewed. No pertinent family history. PAT Physical Exam Airway Exam: Mallampati: II Vitals: 06/10/18 0537 06/10/18 0542 06/10/18 0543 BP: 110/56 Pulse: 77 78 78 Resp: Temp: SpO2: 100% 99% PT: No results found for requested labs within last 720 hours. INR: No results found for requested labs within last 720 hours. APTT: No results found for requested labs within last 720 hours. Hgb A1C: No results found for requested labs within last 720 hours. CBC RBC: 06/10/2018: 3.90 M/cumm RDW: No results found for requested labs within last 720 hours. MCHC: 06/10/2018: 31.4 g/dL* MCH: 06/10/2018: 24.6 pg* MCV: 06/10/2018: 78.5 fL* Hct: 06/10/2018: 30.6 %* Hgb: 06/10/2018: 9.6 g/dL* WBC: 06/10/2018: 9.6 K/cumm MPV: 06/10/2018: 11.1 fL Platelets: 06/10/2018: 111 K/cumm* RDW CV: 06/10/2018: 15.4 %* RDW Sd: 06/10/2018: 43.8 fL BMP Glucose: 06/03/2018: 88 mg/dL Calcium: 06/03/2018: 9.1 mg/dL Sodium: 06/03/2018: 134 mmol/L* Potassium: 06/03/2018: 4.1 mmol/L CO2: 06/03/2018: 24 mmol/L Chloride: 06/03/2018: 103 mmol/L BUN: 06/03/2018: 9 mg/dL Creatinine: 06/03/2018: 0.82 mg/dL DOS Physical Exam Medical history, medications, and allergies reviewed. Attestation: This PAT evaluation 06/10/2018. Airway Exam: Mallampati: II Cervical ROM: FROM TM distance: 3 Jaw ROM: full Cardiovascular Exam: Rate: regular Rhythm: regular Pulmonary Exam: LCTA, bilat EENT Exam: trachea midline Dental Exam: Appears intact Skin Exam: Skin is warm. Turgor is normal. Current state: Patient's current state is cooperative. Anesthesia Plan ASA 2 My patient is approved for the Anesthesia Controlled Medication protocol when under care of a SENIOR ENGINEERING SPECIALIST Planned anesthesia: Epidural Informed Consent: Discussed plan with resident. Anesthesia plan and risks discussed with patient. Plan and Consent Comments: Discussed risks, benefits, alternatives to neuraxial anesthesia, including but not limited to PDPH,risk of prolonged or permanent numbness/weakness/paralysis, nausea, aspiration, bleeding, infection. Pt voiced understanding and acceptance of risks and a desire to proceed with labor neuraxial analgesia. Consent and Attending signature: I and/or my designee have discussed the anesthesia plan, benefits, possible alternatives, parental presence at time of induction (if indicated), and clinically relevant risks that may include dental injury, unintentional awareness, and/or other complications. The patient and/or parent/legal guardian understand, and agree to proceed. All questions answered. CULTURAL ECONOMICS PROFESSOR documented in this encounter Plan of Treatment Not on file documented as of this encounter Procedures Procedure Name Priority Date/Time Associated Diagnosis Comments PA AN PROCEDURE PLACEHOLDER Routine 06/10/2018 7:32 AM AGRICULTURAL ECONOMICS PROFESSOR Procedure Note - Royce Raygoza MD - 06/10/2018 7:32 AM CSTThis note is in progress. Epidural Block Patient location: L&D Reason for block: labor analgesia Staff: Supervising Anesthesiologist: ROYCE RAYGOZA Placed by: Resident: MEIR DAMON Procedure prep: Preprocedure checklist: patient identified, procedure contraindicationsassessed, procedure consent obtained, surgical consent, IV checked, risks,benefits and alternatives discussed, monitors and equipment checked andtimeout performed Patient Position: sitting Procedure performed while patient: awake Monitoring: oximetry and blood pressure Supplemental oxygen: nasal cannula Prep solution: chlorhexadine/alcohol PPE: provider hat/mask, sterile gloves and sterile drape Epidural: Approach: midline Location: L3-4 Epidural needle: Injection technique: SANTOS saline Needle type: Tuohy Needle gauge: 17 G Needle length: 9 cm Loss of resistance: 8 cm Catheter: Catheter type: multi-orifice and wire-bound. Catheter at skin depth: 14 cm Negative aspiration of blood: no Negative aspiration of CSF: no Test dose: negative. Assessment: Events: patient tolerated procedure well with no complications documented in this encounter Visit Diagnoses Not on filedocumented in this encounter Administered Medications Inactive Administered Medications - up to 3 most recent administrations Medication Order MAR Action Action Date Dose Rate Site SUFentanil (SUFENTA) 5 mcg, bupivacaine (MARCAINE) 2 mL in sodium chloride 0.9% 10 mL epidural epidural, Continuous PRN, Starting on Sun06/10/18 at 0750, Anesthesia Intra-op Bolus 06/10/2018 7:54 AM AGRICULTURAL ECONOMICS PROFESSOR 5 mL New Bag 06/10/2018 7:50 AM AGRICULTURAL ECONOMICS PROFESSOR 5 mL SUFentanil (SUFENTA) 5 mcg, bupivacaine (MARCAINE) 2 mL in sodium chloride 0.9% 10 mL epidural epidural, Continuous PRN, Starting on Sun06/10/18 at 0754, Anesthesia Intra-op New Bag 06/10/2018 7:54 AM AGRICULTURAL ECONOMICS PROFESSOR 10 mL/hr 10 mL/hr documented in this encounter Orders Procedures Count Last Ordered Date First Orde red Date ANESTHESIA EPIDURAL BLOCK 1 06/10/2018 documented in this encounter Care Teams Major Assembly Lineman Relationship Specialty Start Date End Date No, Physician PCP - General 12/03/17 01/03/23 documented as of this encounter
--- OUTSIDE RECORDS SUMMARY | 2024-07-28 06:40 | XMS_ITS | Encounter Summary ---
Author Organization [facility] Healthcare Address [address] [place] [address] Care Team Providers Care Technical Supervisor Name Role Phone No, Physician Primary Care Provider Reason for Visit * Reason Comments Routine Visit Encounter Details Date Type Department Care Team (Late st Contact Info) Description 06/03/2018 2:45 PM CREATIVE SERVICES SPECIALIST Office Visit Obstetrics and Gynecology Clinic [address] [facility] 3rd Floor [address] [place] [address] Meka Delarosa MD [address] [facility] [phone] [place], [place] [id number] Klarissa Regan, CONSTRUCTION CONTROLLER [address] [place] [id number] Encounter for supervision of normal in third trimester, unspecified (Primary Dx); Elevated blood pressure affecting in third trimester, antepartum; Marginal insertion of umbilical cord affecting management of mother; 38 weeks gestation of ; History of gHTN with prior ; History of marijuana use; 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; Other iron deficiency anemia Discharge Disposition: Discharge to home or self care Social History Tobacco Use Types Packs/Day Years Used Date Smoking Tobacco: Never Smokeless Tobacco: Never Comments Yes Sex and Gender Information Value Date Recorded Sex Assigned at Not on file Legal Sex Female 1:19 AM CREATIVE SERVICES SPECIALIST Gender Identity Not on file Sexual Orientation Not on file documented as of this encounter Last Filed Vital Signs Vital Sign Reading Time Taken Comments Blood Pressure 120/86 06/03/2018 3:29 PM CREATIVE SERVICES SPECIALIST 120 /86 Pulse 114 06/03/2018 3:29 PM CREATIVE SERVICES SPECIALIST Temperature - - Respiratory Rate - - Oxygen Saturation - - Inhaled Oxygen Concentration - - Weight 87.8 kg (193 lb 8 oz) 06/03/2018 3:29 PM CREATIVE SERVICES SPECIALIST Height - - Body Mass Index 32.2 03/26/2018 2:42 PM CDT documented in this encounter Patient Instructions * Patient Instructions* Klarissa Regan, CONSTRUCTION CONTROLLER - 06/03/2018 2:45 PM CREATIVE SERVICES SPECIALIST Contact us Office hours: Sunday-Sunday 8:30 AM-4:30 PM Phone number: [phone] Daytime: Call us if you have questions [...] medical problem, you can call us at [phone]. Please wait until the clinic is open for non-urgent needs as this emergency line cannot help with appointments, paperwork or prescriptions. If you have an emergency and cannot wait, please call 101 or go to the [facility] Emergency room. If you are having a problem with your or are in labor you can go to the [facility] (check in near elevator on first floor) [address] [facility], 5th [place] [address]. Patient Education Kick Counts in PIPE THREADER: Kick counts measure how much your baby [...] may provide information about your baby's health. Luke move less, or not at all, if [...] ask them during your visits. ?? 2017 [employer] Information is for End User's use only and may not be sold, redistributed or otherwise used for commercial purposes. All illustrations and images included in CareNotes?? are the copyrighted property of [employer]. or [employer]. The above information is an library aide only. It is not intended as medical advice for individual conditions or treatments. Talk to your doctor, nurse or pharmacist before following any medical regimen to see if it is safe and effective for you. Patient Education at 35 to 38 Weeks WHAT YOU NEED TO KNOW: What changes are happening in my body? You are considered full term at the beginning of 37 weeks. Your breathing may be easier if your baby has moved down into a head-down position. You may need to urinate more often because the baby may be pressing on your bladder. You may also feel more discomfort and get tired easily. How do I care for myself at [...] as swordfish, tilefish,aristeo mackerel, and shark. ?? Take vitamins as directed. Your need for certain vitamins and minerals, such as folic acid, increases during . vitamins provide some of the extra vitamins and minerals you need. vitamins may also help to decrease the risk of certain defects. ?? Rest as needed. Put your feet up if you have swelling in your ankles and feet. ?? Do not smoke. If you smoke, [...] marijuana or cocaine) while you are . ?? Talk to your healthcare provider before you travel. You may not be able to travel in an airplaneafter 36 weeks. He may also recommend that you avoid long road trips. What are some safety tips during ? [...] cat's litter box while you are . ?? Ask your healthcare provider about travel. The most comfortable time to travel is during the second trimester. Ask your healthcare provider if you can travel after 36 weeks. You may not be able totravel in an airplane after 36 weeks. He may also recommend that you avoid long road trips. What changes are happening with my baby? By 38 weeks, your baby may weigh between 6 and 9 pounds. Your baby may be about 14 inches long from the top of the head to the rump (baby's bottom). Your babyhears well enough to know your voice. As your baby gets larger, you may feel fewer kicks and more stretching and rolling. Your baby may move into a head-down position. Your baby will also rest lower in your abdomen. What do I need to know about care? Your healthcare provider will check your blood pressureand weight. You may also need the following: ?? A urine test may also be [...] your kidneys and other organs. ?? A blood test may be done to check for anemia (low iron level). ?? A Tdap vaccine may be recommended by your healthcare provider. ?? A group B strep test is a test that is done to check for group B strep infection. Group B strep is a type of bacteria that may be found in the vagina or rectum. It can be passed to your baby during delivery if you have it. Your healthcare provider will take swab your vagina or rectum and send the sample to the lab for tests. ?? Fundal height is a measurement of [...] refuse treatment. The above information is an library aide only. It is not intended as medical advice for individual conditions or treatments. Talk to your doctor, nurse or pharmacist before following any medical regimen to see if it is safe and effective for you. ?? 2016 [employer]. Information is for End User's use only and may not be sold, redistributed or otherwise used for commercial purposes. All illustrations and images included in CareNotes?? are the copyrighted property of [employer], [employer]. or [employer]. TIVE SERVICES SPECIALIST documented in this encounter Discharge Disposition Disposition Code Departure Means Destination Discharge to home or self care documented in this encounter Progress Notes * Klarissa Regan NP - 06/03/2018 2:45 PM CST Subjective Pt presents today for routine visit. Denies VB or LOF and endorses frequent movement. Having few ctx daily. Reports a mild BOLAÑOS yesterday that resolved with rest. Denies associated visual changes or epigastric pain. States her pedal edema resolved since she stopped working. Objective See ACOG BP #1 120/86; #2 120/86 manual; 2+ proteinuria Problem List 38 weeks gestation of Overview labs UTD- 3T labs reviewed; GBS Neg Tdap Previously declined Continue daily PNV Reviewed FKCs and s/s of labor; warning signs of PreE Has car seat and ped Discussed FMLA papers MOD: anticipates MOF: bottle MOC: Reviewed options; considering [facility] in 1 week Female fetus History of gHTN with prior Overview Normotensive today 114/64 Discontinue daily low-dose ASA today; pt verbalized understanding Addendum 06/03: Two mid-range Bps today; #1 120/86 #2 120/86 (manual) 2+ proteinuria present Pt denies BOLAÑOS, visual changes, or epigastric pain; edema has resolved since she quit working CBC, CMP, uric acid, p/c ratio obtained, results pending PreE warning signs reviewed-instructed to go to [facility] immediately with any s/s History of marijuana use Overview Previously reviewed risks to with continued use Continue to abstain for duration of Obtain random UDS each trimester 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 Fontenot nuchal fold also upper normal limit (5-6mm) and genetic screening offered S/p negative NIPTon 03/12 Marginal insertion of umbilical cord affecting management of mother Overview Obtain serial u/s for growth q4 weeks Growth u/s 03/26: AGA interval growth 1290g (41st%) Addendum 04/17: Follow-up u/s for growth scheduled 1 week Addendum 05/16: Follow-up u/s today demonstrates low normal AGA interval growth (EFW 14th%) and HC and BPD with less than expected growth. Per verbal consult with Dr. 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 No need for additional testing. Iron deficiency anemia Overview Continue Fe BID with orange juice TIVE SERVICES SPECIALIST documented in this encounter Plan of Treatment Not on file documented as of this encounter Procedures Procedure Name Priority Date/Time Associated Diagnosis Comments POCT URINALYSIS DIPSTICK Routine 06/03/2018 3:32 PM CREATIVE SERVICES SPECIALIST Encounter for supervision of normal in third trimester, unspecified documented in this encounter Results * Protein / creatinine ratio, urine, random (06/03/2018 4:54 PM CREATIVE SERVICES SPECIALIST) Pathologist [facility] Protein, ur, quant 62.3 mg/dL [facility] Creatinine, ur 348.20 mg/dL [facility] Protein/creatin ine ratio 0.2 Ratio [facility] Urine 06/03/2018 4:54 PM CREATIVE SERVICES SPECIALIST 06/03/2018 5:15 PM CREATIVE SERVICES SPECIALIST Narrative [facility] - 06/03/2018 6:30 PM CREATIVE SERVICES SPECIALIST us Klarissa Regan NP LAB URINE ORDERABLES Final Result [facility] Department [place] [address] * Uric acid (06/03/2018 4:29 PM CREATIVE SERVICES SPECIALIST) Pathologist [facility] Uric acid 4.8 2.5 - 7.0 mg/dL [facility] Blood specimen (specimen) 06/03/2018 4:29 PM CREATIVE SERVICES SPECIALIST 06/03/2018 4:51 PM CREATIVE SERVICES SPECIALIST Narrative [facility] - 06/03/2018 5:36 PM CREATIVE SERVICES SPECIALIST us Klarissa Regan CONSTRUCTION CONTROLLER LAB BLOOD ORDERABLES Final Result [facility] Department [place] [address] * (ABNORMAL) Comprehensive metabolic panel (06/03/2018 4:29 PM CREATIVE SERVICES SPECIALIST) [facility] Sodium 134(L) 135 - 145 mmol/L [facility] Potassium, pl 4.1 3.3 - 4.9 mmol/L [facility] Chloride 103 97 - 110 mmol/L [facility] CO2 24 22 - 32 mmol/L [facility] Anion gap 6 2 - 15 mmol/L [facility] BUN 9 8 - 25 mg/dL [facility] Creatinine 0.82 0.60 - 1.10 mg/dL [facility] Glucose 88 70 - 199 mg/dL [facility] Comment: Interpretive Data Fasting glucose >/= [...] 2017. Calcium 9.1 8.5 - 10.3 mg/dL [facility] Bilirubin, total 0.3 0.1 - 1.2 mg/dL [facility] Protein, pl 7.3 6.5 - 8.5 g/dL [facility] Albumin 3.4(L) 3.5 - 5.0 g/dL [facility] Alk phos 162(H) 40 - 130 Units/L [facility] ALT 19 7 - 45 Units/L [facility] AST 23 10 - 45 Units/L [facility] Blood specimen (specimen) 06/03/2018 4:29 PM CREATIVE SERVICES SPECIALIST 06/03/2018 4:51 PM CREATIVE SERVICES SPECIALIST Narrative [facility] - 06/03/2018 5:36 PM CREATIVE SERVICES SPECIALIST us Klarissa Regan CONSTRUCTION CONTROLLER LAB BLOOD ORDERABLES Final Result [facility] Department [place] [address] * (ABNORMAL) CBC without differential (06/03/2018 4:29 PM CREATIVE SERVICES SPECIALIST) WBC 10.6(H) 3.8 - 9.9 K/cumm [facility] Hgb 10.8(L) 11.9 - 15.5 g/dL [facility] Hct 34.7(L) 35.6 - 45.5 % [facility] Plt 127(L) 150 - 400 K/cumm [facility] MPV 11.2 9.1 - 12.3 fL [facility] RBC 4.39 3.90 - 5.20 M/cumm [facility] MCV 79.0(L) 81.3 - 96.4 fL [facility] MCH 24.6(L) 27.1 - 33.3 pg [facility] MCHC 31.1(L) 32.3 - 35.7 g/dL [facility] RDW CV 15.0(H) 11.1 - 14.9 % [facility] RDW SD 43.0 35.7 - 48.1 fL [facility] NRBC abs 0.02(H) 0.00 - 0.01 K/cumm [facility] Blood specimen (specimen) 06/03/2018 4:29 PM CREATIVE SERVICES SPECIALIST 06/03/2018 4:51 PM CREATIVE SERVICES SPECIALIST Narrative [facility] - 06/03/2018 5:23 PM CREATIVE SERVICES SPECIALIST us Klarissa Regan CONSTRUCTION CONTROLLER LAB BLOOD ORDERABLES Final Result [facility] Department [place] [address] * (ABNORMAL) POCT urinalysis dipstick (06/03/2018 3:32 PM CREATIVE SERVICES SPECIALIST) Color, Urine, POC Kathy Clarity, ur, POC Clear Clear Glucose, ur, POC Negative Negative mg/dL Bilirubin, ur, POC Negative Negative Ketones, ur, POC Negative Negative Blood, ur, POC Negative Negative Protein, ur, POC 2+(A) Negative Nitrite, ur, POC Negative Negative Leukocytes, ur, POC Negative Negative Lot Number [id number] Urine 06/03/2018 3:32 PM CREATIVE SERVICES SPECIALIST us Klarissa Regan CONSTRUCTION CONTROLLER POINT OF CARE TEST ORDERAB LES Final Result documented in this encounter Visit Diagnoses Diagnosis Encounter for supervision of normal in third trimester, unspecified - Primary Elevated blood pressure affecting in third trimester, antepartum Marginal insertion of umbilical cord affecting management of mother 38 weeks gestation of History of gHTN with prior History of marijuana use 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
--- OUTSIDE RECORDS SUMMARY | 2024-07-28 06:40 | XMS_ITS | Encounter Summary ---
Author Organization [facility] Healthcare Address [address] [place] [address] Care Team Providers Care Machine Set Up Technician Name Role Phone No, Physician Primary Care Provider [phone] Reason for Visit * Reason Comments Abscess Encounter Details Date Type Department Care Team (Late st Contact Info) Description 04/11/2021 9:05 AM CDT - 04/11/2021 11:30 AM CDT Surgery [facility] Operating Room [address] [place] [address] Angel Lal MD [address] [place] [address] INCISION AND DRAINAGE - ORAL CAVITY Surgery Details Date/Time Status Location OR Service Patient Class Case Class Case Type Trauma Case? 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 Gender Identity Not on file Sexual Orientation Not on file documented as of this encounter Last Filed Vital Signs Vital Sign Reading Time Taken Comments Blood Pressure 145/95 04/11/2021 11:30 AM CDT Pulse 96 04/11/2021 11:30 AM CDT Temperature 36.3 ??C (97.3 ??F) 04/11/2021 11:20 AM C DT Respiratory Rate 15 04/11/2021 11:30 AM CDT Oxygen Saturation 100% 04/11/2021 11:30 AM CDT Inhaled Oxygen Concentration - - Weight 83.9 kg (185 lb) 04/10/2021 11:59 PM CDT Height 165.1 cm (5' 5 ) 04/10/2021 11:59 PM CDT Body Mass Index 21.63 04/10/2021 11:59 PM CDT documented in this encounter Discharge Summaries * Sean Ward MD - 04/19/2021 6:54 AM CDT Inpatient Discharge Summary BRIEF OVERVIEW Admitting Provider: Angel Lal MD Discharge Provider: Angel Lal MD Primary Care Physician at Discharge: No, Physician [phone] Admission Date: 04/11/2021 Discharge Date: 04/19/2021 Admission Location: [facility] Problems/Diagnoses: Principal Problem: Dental abscess Resolved Problems: No resolved hospital problems. DETAILS OF HOSPITAL STAY Presenting Problem/History of Present Illness: Patient is a 30 y.o. female. She presented with a inspector dials space abscess. She has a history of chronic left mandibular molar pain and was told by a dentist she needed this extracted. Over the last 2 weeks she had worsening dental pain, jaw pain, and difficulty with mouth opening. 04/04 she was prescribed penicillin by her PCP without improvement. 04/08 she noticed she was unable to open her mouthenough to take her antibiotic. She had been tolerating liquids, but not solids due to her trismus. She had no voice changes, shortness of breath, or difficulty tolerating secretions. She also denied any no fevers or chills. She was seen at an outside hospital where she was given unasyn, and CT was c oncerning for inspector dials space abscess. ?? she was transferred to [facility] for INCISION AND DRAINAGE - ORAL CAVITY, Left - Mouth INCISION AND DRAINAGE - NECK, Left - Neck Hospital Course: The patient was taken to the OR on 04/11/2021 for INCISION AND DRAINAGE - ORAL CAVITY, Left - Mouth INCISION AND DRAINAGE - NECK, Left - Neck After a period of recovery in the PACU, the patient was admitted to the head and neck surgery service for overnight observation. Once stable, the patient was transferred to [facility]. There were no acuteevents. Postoperative plan of care included pain management, IV antibiotics, tube feed management, and irrigation of her wound via the red rubber catheter inserted intraoperatively. On 04/15/21, she went to clinic with [facility] for multiple teeth extractions. She was eventually started on sips, and her diet was advanced to a soft diet as tolerated. She was able to support herself nutritionally, and soher dobhoff tube was removed. Throughout her course, her symptoms improved, including her trismus, swelling, and WBC. By the time of discharge, the patient's pain was adequately controlled and they were voiding spontaneously. She was discharged with a further 7-day course of augmentin, peridex mouthwash, and a plan for follow up with Dr. Lal. Diet: Dietary Orders (From admission, onward) Start Ordered 04/18/21 0900 Oral Nutrition Supplements Select Supplement: Ensure Plus - Jeannie; Quantity (# of cans): 1 can All Meals Question Answer Comment Select Supplement: Ensure Plus - Jeannie Quantity (# of cans): 1 can 04/18/21 0859 04/17/21 0754 Adult Diet GI Diets; Dysphagia 3 (soft) Diet effective now Question Answer Comment ([facility]) Diet type GI Diets Modified Consistency: Dysphagia 3 (soft) 04/17/21 0754 Active Issues Requiring Follow-up: None Test Results Pending at Discharge: None Operative Procedures Performed: INCISION AND DRAINAGE - ORAL CAVITY, Left - Mouth INCISION AND DRAINAGE - NECK, Left - Neck Other Procedures: None Pertinent Test Results: XR Abdomen Ap 1 Vw Final Result A single view of the abdomen is submitted for evaluation. An enteric tube is present with the tip at the gastric fundus. The stylet remains in place. Normal bowel gas pattern. Dictated by: Tone Rodrigues MD The radiology attending physician has personally reviewed this study, and had reviewed and/or edited this written report and agrees with it. Electronically signed by: Andrés Pandya M.D. CT Body Outside Consult (Results Pending) Abnormal Labs Reviewed AEROBIC AND ANAEROBIC CULTURE AND GRAM STAIN - Abnormal Narrative: Testing performed by [facility] ([phone]) Specimens submitted from normally sterile body sites will have all bacterial morphotypes identified. Specimens that contain grossly mixed dior and/or are from body sites that are not normally sterile will be examined for Staphylococcus aureus, Pseudomonas aeruginosa, beta-hemolytic strep, vancomycin-resistant Enterococcus, Bacteroides, Parabacteroides, Clostridium perfringens and fungus. If any of these are isolated, the organism will be reported. Current interpretive data was last revised on 2019. CBC WITH AUTO DIFFERENTIAL - Abnormal; Notable for the following components: Result Value WBC 13.7 (*) All other components within normal limits DIFFERENTIAL AUTO - Abnormal; Notable for the following components: Neutrophil abs 12.6 (*) Lymphocyte abs 0.5 (*) All other components within normal limits CBC WITH AUTO DIFFERENTIAL - Abnormal; Notable for the following components: WBC 11.1 (*) All other components within normal limits BASIC METABOLIC PANEL - Abnormal; Notable for the following components: BUN 7 (*) All other components within normal limits DIFFERENTIAL AUTO - Abnormal; Notable for the following components: Neutrophil abs 7.4 (*) All other components within normal limits POC BLOOD GAS AND CHEMISTRIES, ARTERIAL - Abnormal; Notable for the following components: K POC 9.2 (*) All other components within normal limits Discharge Details Physical Exam at Discharge: Discharge Condition: good, stable Pulse: 66 Resp: 16 BP: 127/87 Temp: 36.4 ??C (97.5 ??F) Weight: 59 kg (130 lb) Pertinent Exam Findings at Discharge: See last progress note Discharge Disposition: Code Status at Discharge: Full Code Discharge Instructions: See AVS Other Instructions Ambulatory referral to Home Health Service Line: Home Health Primary disciplines requested: [facility]: Wound/ Ostomy Care Physician to follow patient's care (the person listed here will be responsible for signing ongoing orders): Referring Provider Requested Start of Care Date: Within 2 - 3 Days I attest that I or another qualified licensed provider saw the patient 90 days prior to or 30 days post admission and this face to face encounter meets the necessary Home Health requirements. The face to face encounter occurred on (date): 04/12/2021 The encounter with the patient was in whole, or in part, for the following medical condition, whichis the primary reason for home health care. (List medical condition): abscess with drain requiring wound care I certify that, based on my findings, the following services are medically necessary skilled home health services: Wound/ Ostomy Care Clinical findings that support the need for home care: Medical condition requiring skilled assessment/education I certify that my clinical findings support patient's homebound status. Homebound criteria met because: Poor endurance Requires assistance of another to leave home safely Ambulatory referral to Home Health Service Line: Home Health Primary disciplines requested: [facility]: Wound/ Ostomy Care Other Comment: tube feeds Physician to follow patient's care (the person listed here will be responsible for signing ongoing orders): Referring Provider Requested Start of Care Date: Within 2 - 3 Days I attest that I or another qualified licensed provider saw the patient 90 days prior to or 30 days post admission and this face to face encounter meets the necessary Home Health requirements. The face to face encounter occurred on (date): 04/13/2021 The encounter with the patient was in whole, or in part, for the following medical condition, whichis the primary reason for home health care. (List medical condition): inspector dials space abscess I certify that, based on my findings, the following services are medically necessary skilled home health services: Wound/ Ostomy Care Other Comment: tube feeds Clinical findings that support the need for home care: Medical condition requiring skilled assessment/education Wound requiring care, assessment, and instruction I certify that my clinical findings support patient's homebound status. Homebound criteria met because: Requires assistance of another to leave home safely Ambulatory referral to Home Health Service Line: Home Health Primary disciplines requested: [facility]: Wound/ Ostomy Care Physician to follow patient's care (the person listed here will be responsible for signing ongoing orders): PCP Requested Start of Care Date: Within 2 - 3 Days I attest that I or another qualified licensed provider saw the patient 90 days prior to or 30 days post admission and this face to face encounter meets the necessary Home Health requirements. The face to face encounter occurred on (date): 04/13/2021 The encounter with the patient was in whole, or in part, for the following medical condition, whichis the primary reason for home health care. (List medical condition): inspector dials space abscess I certify that, based on my findings, the following services are medically necessary skilled home health services: Wound/ Ostomy Care Clinical findings that support the need for home care: Wound requiring care, assessment, and instruction I certify that my clinical findings support patient's homebound status. Homebound criteria met because: Requires assistance of another to leave home safely Enteral Feeding Supplies DME Needed: TF gravity bags TF pole syringes Supplies: Indwelling NG Tubes The [id number] evaluation was performed on: 04/12/2021 DME services provided by: External Agency Your home health agency is: [facility] [phone] You should be contacted by the home health care agency within 1-2 days of discharge regarding scheduling visit. If you don't hear from them, please call the number listed above to follow-up. [facility] [phone] for tube feeding supplies and formula ; please call them when you arrive home todeliver your supplies. Please call them at this number if you have questions or concerns. Discharge Medications: Current Medications TAKE these medications acetaminophen 500 mg capsule Take 1 capsule (500 mg total) by mouth every 6 (six) hours as needed for pain. For: fever, pain amoxicillin-clavulanate 80-11.4 mg/mL suspension Take 10 mL (800 mg of amoxicillin total) by mouth 2 (two) times a day for 7 days Commonly known as: AUGMENTIN chlorhexidine 0.12 % solution Apply 15 mL to the mouth or throat 4 (four) times a day For: mouth infection prevention Commonly known as: PERIDEX ferrous sulfate 325 mg (65 mg of elemental iron) tablet Take 1 tablet (325 mg total) by mouth 2 (two) times a day. ibuprofen 600 mg tablet Take 1 tablet (600 mg total) by mouth every 6 (six) hours as needed for pain. For: cramps, pain Commonly known as: ADVIL,MOTRIN influenza quadrivalent [id number] 60 mcg (15 mcg x 4)/0.5 mL syringe Inject 0.5 mL into the muscle as instructed once for 1 dose For: influenza vaccination Commonly known as: FLULAVAL,FLUARIX,FLUZONE * oxyCODONE 5 mg immediate release tablet Take 1 tablet (5 mg total) by mouth every 4 (four) hours as needed for pain For: pain Commonly known as: ROXICODONE * oxyCODONE 5 mg immediate release tablet Take 1 tablet (5 mg total) by mouth every 4 (four) hours as needed for pain For: pain Commonly known as: ROXICODONE Vitamin Plus Low Iron 27 mg iron- 1 mg tablet Take 1 tablet by mouth daily. Generic drug: PNV with [id number] * This list has 2 medication(s) that are the same as other medications prescribed for you. Read the directions carefully, and ask your doctor or other care provider to review them with you. Outpatient Follow-Up: Future Appointments Date Time Provider Department Center 05/19/2021 10:20 AM Angel Lal MD [facility] Cosigned by Angel Lal MD at 04/19/2021 4:11 PM CDT documented in this encounter Discharge Instructions * Discharge Instructions* Sean Ward MD - 04/19/2021 9:35 AM CDT ENT Post Operative Discharge Instructions Procedure: incision and drainage of peridental abscess, teeth extraction When to call your doctor: ??? You have a fever of more than 101.5. ??? You have redness or swelling around your incision. ??? The pain in your incision starts hurting very badly. ??? Your incision starts draining. ??? You notice a foul odor from surgical area. ??? You have pus, bleeding, or drainage around your incision site. ??? Your incision is opening. ??? You notice a foul odor. ??? You have persistent nausea and/or vomiting, ??? You feel dizzy or like you may pass out. ??? You have a hard time breathing. ??? You have any questions or concerns. Diet: Soft Diet Avoid hard and crunch foods as your symptoms improve and wounds heal. You may slowly advance your diet as tolerated back to a regular diet. Activity: Do NOT LIFT ANYTHING GREATER THAN A GALLON OF MILK UNTIL YOUR FOLLOW UP APPOINTMENT. Light activity for the next 24 hours. Resume normal activity afterwards as tolerated. You may feel tired and run down after surgery. It is normal to sleep more or take more naps. Light activity is okbut avoid heavy house work, yard work or strenuous exercise. Short walks are encouraged. Activitiescan be slowly increased as tolerated. Do not drive, operative heavy machinery, or make important legal decisions for the next 24 hours orwhile taking narcotic pain medication. Driving privileges are left up to the discretion of your physician and will be discussed further at your follow up appointment. You cannot drive while taking narcotic pain medication. Showering ??? You may shower normally, allowing the water to wash gently over the suture line, but do not scrub the sutures or incisions. It is fine for soap to wash over the incisions, but it must be rinsed off. You may use a mild shampoo to wash your hair (baby shampoo is fine). If your wound gets wet, lightly dab it dry. ??? DO NOT submerge yourself in any water that will cover the incision (bathtub, hot tub, swimming pool, pools, lakes, subramanian, oceans), unless specifically cleared by your doctor. Wound Care: Absorbable sutures. They will dissolve over the next few weeks. You may apply bacitracin, polymixin, or neosporin antibiotic ointment three times a day over your incision for 3 days. Then you may apply vaseline ointment to your incisions three times daily until follow up. ?? Keep your incision clean. ?? If any crusting forms on suture line, clean gently with Q-tip dipped in a 50:50 mixture of peroxide and water and apply vaseline twice a day. Call for increased problems including increased pain, redness or swelling. ??? Keep the wound covered when in a place where the wound might get dirty. ??? Do not scrub, rub, or pick at the incision. ??? Please take extra care to avoid sun exposure until the wounds are healed and then protect the incision sites with sunscreen (about 6 weeks after your surgery) as sun exposure can interfere with the healing process. Sun exposure retards healing and causes discoloration of the scar that may neverdisappear. ??? DO NOT swim (pool, brown, ocean, river, or hot tub, etc.) until the wound has completely healed and you have been seen by your surgeon. This can cause infection. ??? Continue to use your peridex mouthwash as directed. Do not smoke tobacco Smoking has been proven to interfere with the normal wound healing. Smoking will dramatically reduce the success rate of your surgery. Your primary care doctor can prescribe a patch to help you stop smoking if you would like. Medications: - Pain: ??? You may have been prescribed Acetaminophen (Tylenol) or you may buy it at any pharmacy or drugstore. You should take Acetaminophen (Tylenol) 650mg every 6 hours for pain. Taking this in addition to your narcotic pain medication will provide greater pain relief. Do not exceed 3g (3000mg) of Tylenol in a 24h period. ??? You have been prescribed oxycodone or another narcotic medication to help with your pain. You should only use this pain medication to help with pain that is not adequately controlled by tylenol. You should not drive while taking narcotic pain medication. Narcotic pain medication can make you constipated; take a stool softener as needed. - Stool Softener: Take stool softener (Hssq-kei-toiqwkf or prescription) while taking narcotic medication to prevent constipation. Laxatives not recommended. - Antibiotic: You have been prescribed liquid augmentin. Please take as directed for a full course.Do not stop your antibiotic early without discussing with your doctor. - Anticoagulation/antiplatelet agents: None Pathology: Final Pathology will take 7-10 days to result. This should be discussed with you at your scheduled follow up appointment. If for some reason it is not and you have not received a call from the officeto tell you your final pathology within 2 weeks of discharge, please contact the surgeon's nurse atthe number listed below or contact the main office line at [phone]. Follow up: You should follow up in Angel Navarro MD's clinic as scheduled below. [facility] [address] [place] [address] OTHER FOLLOW UP: 1. PCP - for management of all chronic illnesses Future Appointments Date Time Provider Department Center 05/19/2021 10:20 AM Angel Lal MD [facility] Phone numbers ??? Appointment Scheduling: ??? After hours or Weekends: Call and ask for the ENT resident gleason operator. ??? During Regular Business Hours (8am-5pm Sunday through Sunday): Dr. Lal (Dionne Radford, JOHNNY): [phone] Questions: If you have any concerns or questions, or develop worrisome symptoms such as worsening pain or swelling, bleeding, fever, or vomiting, call your doctor. * Appointments* Beverly Linares RN - 04/14/2021 11:07 AM CDT Please bring all of your insurance cards with you to appointment. Arrive 15 minute before schedule appointment. * Discharge Instr - Other Orders* Beverly Linares RN - 04/14/2021 11:07 AM CDT documented in this encounter Medications at Time of Discharge amoxicillin-clavul anate (AUGMENTIN) suspension 400-57 mg/5 mL Take 10 mL (800 mg of amoxicillin total) by mouth 2 (two) times a day for 7 days 140 mL 04/19/2021 influenza quadrivalent (FLULAVAL,FLUARIX, FLUZONE) 60 mcg (15 mcg x 4)/0.5 mL syringeIndications :influenza vaccination Inject 0.5 mL into the muscle as instructed once for 1 dose 0.5 mL 04/19/2021 1 acetaminophen 500 mg capsuleIndications :Fever,Pain Take 1 capsule (500 mg total) by mouth every 6 (six) hours as needed for pain. 60 tablet 06/12/2018 1 chlorhexidine (PERIDEX) 0.12 % solutionIndication s:Mouth Infection Prevention Apply 15 mL to the mouth or throat 4 (four) times a day 1800 mL 04/19/2021 1 ferrous sulfate 325 mg (65 mg of elemental iron) tabletIndications: Iron deficiency anemia, unspecified iron deficiency anemia type Take 1 tablet (325 mg total) by mouth 2 (two) times a day. 60 tablet 5 05/22/2018 1 ibuprofen (ADVIL,MOTRIN) 600 mg tabletIndications: Cramps,Pain Take 1 tablet (600 mg total) by mouth every 6 (six) hours as needed for pain. 60 tablet 06/12/2018 1 oxyCODONE (ROXICODONE) 5 mg immediate release tabletIndications: Pain Take 1 tablet (5 mg total) by mouth every 4 (four) hours as needed for pain 15 tablet 04/19/2021 1 PNV with [id number] ( VITAMIN PLUS LOW IRON) 27 mg iron- 1 mg tablet Take 1 tablet by mouth daily. 12/03/2017 1 documented as of this encounter Ordered Prescriptions Prescription Sig Dispense Quantity Refills Last Filled Start Date End Date oxyCODONE (ROXICODONE) 5 mg immediate release tabletIndications: Pain Take 1 tablet (5 mg total) by mouth every 4 (four) hours as needed for pain 15 tablet 04/19/2021 1 chlorhexidine (PERIDEX) 0.12 % solutionIndication s:Mouth Infection Prevention Apply 15 mL to the mouth or throat 4 (four) times a day 1800 mL 04/19/2021 1 influenza quadrivalent [id number] (FLULAVAL,FLUARIX, FLUZONE) 60 mcg (15 mcg x 4)/0.5 mL syringeIndications :influenza vaccination Inject 0.5 mL into the muscle as instructed once for 1 dose 0.5 mL 04/19/2021 1 oxyCODONE (ROXICODONE) 5 mg immediate release tabletIndications: Pain Take 1 tablet (5 mg total) by mouth every 4 (four) hours as needed for pain 8 tablet 04/19/2021 1 amoxicillin-clavul anate (AUGMENTIN) suspension 400-57 mg/5 mL Take 10 mL (800 mg of amoxicillin total) by mouth 2 (two) times a day for 7 days 140 mL 04/19/2021 1 chlorhexidine (PERIDEX) 0.12 % solutionIndication s:Mouth Infection Prevention Apply 15 mL to the mouth or throat 4 (four) times a day for 14 days 840 mL 04/19/2021 1 documented in this encounter Discharge Disposition Disposition Code Departure Means Destination Discharge to home or self care documented in this encounter Progress Notes * Beverly Linares RN - 04/19/2021 12:14 PM CDT 04/19/21 1214 Discharge Summary Chart reviewed For Medical Necessity Does patient have a planned readmission to hospital planned? No Discharge Disposition Home Equipment/Provider Needs No Home Needs Identified Discharge Additional Assistance Does the patient need discharge transport arranged? No Post Discharge Care Provider Post Discharge Care Plan Next level of care provider has access to complete EMR Per medical team, patient is medically stable for discharge at this time. Plan to discharge home with mother. Pt. mother will transport patient home. Follow-up appointment in place. Discharged prescriptions sent to patient pharmacy of choice. Patient and/or family are agreeable with the plan, If any further discharge needs arise, please contact the covering correctional counselor/case manager. * Saen Ward MD - 04/19/2021 6:44 AM CDT Otolaryngology Daily Progress Note Subjective 30 y.o. female that is s/p Procedures: * INCISION AND DRAINAGE - ORAL CAVITY * INCISION AND DRAINAGE - NECK On 04/11/2021 Subsequently underwent extraction of teeth # 1, 3, 4, 16, 17, 18 on 04/15/2021 with [facility]. Interval: No acute events overnight, afebrile, vital signs stable. Tolerating soft diet; able to eat [employer] last night. Objective Vitals: 24hr Min/Max: Temp Min: 36.3 ??C (97.3 ??F) Max: 36.4 ??C (97.5 ??F) Pulse Min: 66 Max: 73 BP Min: 124/70 Max: 136/69 Resp Min: 14 Max: 16 SpO2 Min: 100 % Max: 100 % Most Recent : Vitals: 04/19/21 0520 BP: 127/87 Pulse: 66 Resp: 16 Temp: 36.4 ??C (97.5 ??F) SpO2: 100% I/O last 2 completed shifts: In: 1030 [P.O.:420; NG/GT:500; IV Piggyback:110] Out: - No intake/output data recorded. Physical Exam: General: No apparent distress Head and Face: Normocephalic, atraumatic.. Neck: incision c/d/i, no active bleeding, soft, flat Eyes: EOMI, sclera white Ears: Normal set, no drainage Nose: Dorsum is midline. No drainage or discharge. No epistaxis. Oral Cavity/Oropharynx: No active bleeding from defect in floor of mouth, appropriately healing, improved trismus. FOM soft Extremities: Extremities are warm and well perfused. Pulmonary: Normal quiet breathing. No respiratory distress, stridor, or wheeze. Neurologic: Alert and oriented, CNVII intact and symmetric Lab/Radiology/Diagnostic Review: Laboratory review: Lab results in the last 12 hours: No results found for this or any previous visit (from the past 12 hour(s)). Principal Problem: Dental abscess Procedures: Procedures: * INCISION AND DRAINAGE - ORAL CAVITY * INCISION AND DRAINAGE - NECK Assessment: 30 y.o. female that is from transcervical I&D of abscess 04/11/2021 and teeth extraction 04/15/2021. Continuing to do well. Plan: #inspector dials space abscess - Pain control: tylenol, oxy - Airway: [place] - Diet: Soft diet today - Abx: unasyn > augmentin on discharge - DVT ppx: lovenox, SCDs, OOB - plan to discharge home today Davey Ward MD Otolaryngology - Head & Neck Surgery Weekends & After 6pm: ENT Consult 04/19/2021 6:44 AM Cosigned by Angel Lal MD at 04/19/2021 4:24 PM CDT Associated attestation - Angel Lal MD - 04/19/2021 4:24 PM CDT I have seen and examined the patient on 04/18/2021. I agree with the findings and plan of care with the following modifications: Patient is doing very well, able to advance diet, drain removed from neck. If continues to do well can leave tomorrow on oral antibiotics and will follow-up in 3 weeks. * Lee Ann Heart, CAL - 04/18/2021 3:21 PM CDT Nutrition Assessment Reason for Assessment: Follow Up Encounter Date: 04/18/21 3:21 PM Patient is a 30 y.o. female. LOS is 7 days. HPI: 30 y.o. female that is s/p Procedures: * INCISION AND DRAINAGE - ORAL CAVITY * INCISION AND DRAINAGE - NECK On 04/11/2021 ?? Subsequently underwent extraction of teeth # 1, 3, 4, 16, 17, 18 on 04/15/2021 [place] [facility] [place] Objective Past Medical History: Diagnosis Date ??? Dental abscess ??? Encounter for routine follow-up exam - (Added by TW Conv) ??? Preeclampsia Hx of pre eclampsia with at least 2 pregnancies. Past Surgical History: Procedure Laterality Date ??? OTHER SURGICAL HISTORY labial surgery Social History Tobacco Use ??? Smoking status: Never Smoker ??? Smokeless tobacco: Never Used Substance Use Topics ??? Alcohol use: No History reviewed. No pertinent family history. Anthropometrics: Wt Readings from Last 3 Encounters: 04/14/21 59 kg (130 lb) 06/10/18 86.2 kg (190 lb) 06/03/18 87.8 kg (193 lb 8 oz) Anthropometrics Weight: 59 kg (130 lb) Admission Weight : 59.8 kg Weight Change: -0.81 kg (-1.80 lbs) IBW/kg (Calculated) : 56.7 kg Height: 165.1 cm (5' 5 ) Weight in (lb) to have BMI = 25: 149.9 BMI (Calculated): 21.6 Nutrition Needs Calculations: Calculated Energy Needs Using Equations Weight Used for Equation Calculations (RD Determined): 59.8 kg (131 lb 13.4 oz) Weight: 59 kg (130 lb) Height: 165.1 cm (5' 5 ) Estimated Protein Needs Type of Weight Used for Estimated Protein : Current Protein Needs Based on g/k.3 Total Protein Estimated Needs (gm): 77.72 Kcal/kg Type of Weight Used for Estimated Kcals: Current Kcal/k Total Kcal/kg Estimated Needs : 1793.52 Estimated Fluid Needs Type of Weight Used for Estimated Fluid Needs: Current Fluid Needs Based on : 30 ml/kg Total Fluid Estimated Needs: 1793.52 Vital Signs: BP: 124/70 Temp: 36.4 ??C (97.5 ??F) Pulse: 67 Resp: 14 SpO2: 100 % Medications: Scheduled Meds: ampicillin-sulbactam, 3 g, intravenous, Q6H OSKAR chlorhexidine, 15 mL, mouth/throat, QID dexAMETHasone, 8 mg, intravenous, Q8H OSKAR heparin, 5,000 Units, subcutaneous, Q8H OSKAR sodium chloride 0.9%, 0.5-20 mL, intra-catheter, Q8H OSKAR Continuous Infusions: dextrose 5% and sodium chloride 0.45%, 100 mL/hr, Last Rate: Stopped (04/13/21 0714) Lactated Ringer's, 30 mL/hr PRN Meds: ??? acetaminophen OR acetaminophen OR acetaminophen ??? hydrocortisone ??? HYDROmorphone ??? influenza quadrivalent [id number] ??? ondansetron ODT OR ondansetron ??? oxyCODONE ??? 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 BM 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) Leeroy Scale Score: 22 Skin Integrity: Surgical incision Type of Wound (LDA): Surgical site Oral Mucosa Grade: Painless ulcers, erythema or mild soreness no lesions (I) Dietary Orders (From admission, onward) Start Ordered 04/18/21 0900 Oral Nutrition Supplements Select Supplement: Ensure Plus - Jeannie; Quantity (# of cans): 1 can All Meals Question Answer Comment Select Supplement: Ensure Plus - Jeannie Quantity (# of cans): 1 can 04/18/21 0859 04/17/21 0754 Adult Diet GI Diets; Dysphagia 3 (soft) Diet effective now Question Answer Comment ([facility]) Diet type GI Diets Modified Consistency: Dysphagia 3 (soft) 04/17/21 0754 Impression: Pt started po diet 04/17. Tolerating soft foods. Pt could benefit from oral nutritional supplements.Pt had feeding tube removed this morning. NUTRITION DIAGNOSIS Nutrition Diagnosis 1: Inadequate oral intake Related to: Recent surgery Evidenced by: Patient interview INTERVENTION Dysphagia 3 diet. Encouraged pt to work with service technician copier if she needs softer foods. Ensure Plus ordered TID ADD: 04/19. GOALS / MONITORING: Goals: Oral intake to meet 75% estimated nutritional needs by next assessment, Diet consistency appropriate for patient needs during stay, Tolerance of medical food supplement by next assessment Interventions: Medical food supplement, Meals and snacks Monitoring and Evaluation: PO intake, Supplement tolerance, Stool patterns Lee Ann Heart RD [phone] * Sean Ward MD - 04/18/2021 10:47 AM CDT Otolaryngology Daily Progress Note Subjective 30 y.o. female that is s/p Procedures: * INCISION AND DRAINAGE - ORAL CAVITY * INCISION AND DRAINAGE - NECK On 04/11/2021 Subsequently underwent extraction of teeth # 1, 3, 4, 16, 17, 18 on 04/15/2021 [place] [facility] [place]. Interval: No acute events overnight, afebrile, vital signs stable. Tolerating soft diet. DHT and red rubber removed on AM rounds. Objective Vitals: 24hr Min/Max: Temp Min: 36.3 ??C (97.3 ??F) Max: 36.5 ??C (97.7 ??F) Pulse Min: 69 Max: 92 BP Min: 121/70 Max: 136/69 Resp Min: 15 Max: 18 SpO2 Min: 100 % Max: 100 % Most Recent : Vitals: 04/18/21 0720 BP: 136/69 Pulse: 73 Resp: 15 Temp: 36.3 ??C (97.3 ??F) SpO2: 100% I/O last 2 completed shifts: In: 1450 [P.O.:420; NG/GT:920; IV Piggyback:110] Out: - No intake/output data recorded. Physical Exam: General: No apparent distress Head and Face: Normocephalic, atraumatic. Improved swelling to L side of face. Neck: incision c/d/i, no active bleeding, soft, flat Eyes: EOMI, sclera white Ears: Normal set, no drainage Nose: Dorsum is midline. No drainage or discharge. No epistaxis. Oral Cavity/Oropharynx: No active bleeding from defect in floor of mouth, appropriately healing, improved trismus. FOM soft Extremities: Extremities are warm and well perfused. Pulmonary: Normal quiet breathing. No respiratory distress, stridor, or wheeze. Neurologic: Alert and oriented, CNVII intact and symmetric Lab/Radiology/Diagnostic Review: Laboratory review: Lab results in the last 12 hours: No results found for this or any previous visit (from the past 12 hour(s)). Principal Problem: Dental abscess Procedures: Procedures: * INCISION AND DRAINAGE - ORAL CAVITY * INCISION AND DRAINAGE - NECK Assessment: 30 y.o. female that is from transcervical I&D of abscess 04/11/2021 and teeth extraction 04/15/2021. Continuing to do well. Plan: #inspector dials space abscess - Pain control: tylenol, oxy - Airway: [place] - Diet: Soft diet today - Abx: unasyn - DVT ppx: lovenox, SCDs, OOB - continue BID irrigations - planning for discharge home tomorrow Davey Ward MD Otolaryngology - Head & Neck Surgery Weekends & After 6pm: ENT Consult 04/18/2021 10:47 AM Cosigned by Angel Lal MD at 04/18/2021 3:11 PM CDT * Meir Almodovar MD - 04/17/2021 10:32 AM CDT Otolaryngology Daily Progress Note Subjective 30 y.o. female that is s/p Procedures: * INCISION AND DRAINAGE - ORAL CAVITY * INCISION AND DRAINAGE - NECK On 04/11/2021 Subsequently underwent extraction of teeth # 1, 3, 4, 16, 17, 18 on 04/15/2021 with OMFS service. Interval: No acute events overnight, afebrile, vital signs stable. Tolerating clear liquid diet. Objective Vitals: 24hr Min/Max: Temp Min: 36.3 ??C (97.3 ??F) Max: 36.5 ??C (97.7 ??F) Pulse Min: 78 Max: 83 BP Min: 113/74 Max: 124/72 Resp Min: 16 Max: 18 SpO2 Min: 99 % Max: 100 % Most Recent : Vitals: 04/17/21 0426 BP: 123/80 Pulse: Resp: 16 Temp: 36.5 ??C (97.7 ??F) SpO2: 99% I/O last 2 completed shifts: In: 2650 [P.O.:240; NG/GT:2190; IV Piggyback:220] Out: 0 No intake/output data recorded. Physical Exam: General: No apparent distress Head and Face: Normocephalic, atraumatic. Improved swelling to L side of face. Neck: incision c/d/i with red rubber drain in place, no active bleeding, soft, flat Eyes: EOMI, sclera white Ears: Normal set, no drainage Nose: Dorsum is midline. No drainage or discharge. No epistaxis. Oral Cavity/Oropharynx: No active bleeding from defect in floor of mouth, appropriately healing, improved trismus. FOM soft Extremities: Extremities are warm and well perfused. Pulmonary: Normal quiet breathing. No respiratory distress, stridor, or wheeze. Neurologic: Alert and oriented, CNVII intact and symmetric Lab/Radiology/Diagnostic Review: Laboratory review: Lab results in the last 12 hours: No results found for this or any previous visit (from the past 12 hour(s)). Principal Problem: Dental abscess Procedures: Procedures: * INCISION AND DRAINAGE - ORAL CAVITY * INCISION AND DRAINAGE - NECK Assessment: 30 y.o. female that is from transcervical I&D of abscess 04/11/2021 and teeth extraction 04/15/2021. Continuing to do well. Plan: #inspector dials space abscess - Pain control: tylenol, oxy - Airway: [place] - Diet: Soft diet today - Abx: unasyn - DVT ppx: lovenox, SCDs, OOB - continue BID irrigations Meir Almodovar MD Otolaryngology - Head & Neck Surgery Weekends & After 6pm: ENT Consult 04/17/2021 10:32 AM Cosigned by Angel Lal MD at 04/18/2021 3:11 PM CDT * Meir Almodovra MD - 04/16/2021 4:59 PM CDT Otolaryngology Daily Progress Note Subjective 30 y.o. female that is s/p Procedures: * INCISION AND DRAINAGE - ORAL CAVITY * INCISION AND DRAINAGE - NECK On 04/11/2021 Subsequently underwent extraction of teeth # 1, 3, 4, 16, 17, 18 on 04/15/2021 [place] [facility] [place]. Interval: No acute events overnight, afebrile, vital signs stable. Trismus improved Objective Vitals: 24hr Min/Max: Temp Min: 36.3 ??C (97.3 ??F) Max: 36.7 ??C (98.1 ??F) Pulse Min: 65 Max: 95 BP Min: 105/89 Max: 124/72 Resp Min: 16 Max: 17 SpO2 Min: 95 % Max: 100 % Most Recent : Vitals: 04/16/21 1549 BP: 113/74 Pulse: 79 Resp: 16 Temp: 36.3 ??C (97.3 ??F) SpO2: 100% I/O last 2 completed shifts: In: 1115 [NG/GT:895; IV Piggyback:220] Out: - I/O this shift: In: 840 [NG/GT:840] Out: 0 Physical Exam: General: No apparent distress Head and Face: Normocephalic, atraumatic. Improved swelling to L side of face. Neck: incision c/d/i with red rubber drain in place, no active bleeding, soft, flat Eyes: EOMI, sclera white Ears: Normal set, no drainage Nose: Dorsum is midline. No drainage or discharge. No epistaxis. Oral Cavity/Oropharynx: No active bleeding from defect in floor of mouth, appropriately healing, improved trismus. FOM soft Extremities: Extremities are warm and well perfused. Pulmonary: Normal quiet breathing. No respiratory distress, stridor, or wheeze. Neurologic: Alert and oriented, CNVII intact and symmetric Lab/Radiology/Diagnostic Review: Laboratory review: Lab results in the last 12 hours: No results found for this or any previous visit (from the past 12 hour(s)). Principal Problem: Dental abscess Procedures: Procedures: * INCISION AND DRAINAGE - ORAL CAVITY * INCISION AND DRAINAGE - NECK Assessment: 30 y.o. female that is from transcervical I&D of abscess 04/11/2021 and teeth extraction 04/15/2021. Continuing to do well. Plan: #inspector dials space abscess - Pain control: tylenol, oxy - Airway: [place] - Diet: liquids today - Abx: unasyn - DVT ppx: lovenox, SCDs, OOB - continue BID irrigations Meir Almodovar MD Otolaryngology - Head & Neck Surgery Weekends & After 6pm: ENT Consult 04/16/2021 4:59 PM Cosigned by Angel Lal MD at 04/18/2021 3:11 PM CDT * Sean Ward MD - 04/15/2021 11:46 AM CDT Otolaryngology Daily Progress Note Subjective 30 y.o. female that is POD2 s/p Procedures: * INCISION AND DRAINAGE - ORAL CAVITY * INCISION AND DRAINAGE - NECK No active drainage. Improved swelling and drainage. Plan for OMFS today for extractions. Objective Vitals: 24hr Min/Max: Temp Min: 36.2 ??C (97.2 ??F) Max: 36.7 ??C (98.1 ??F) Pulse Min: 71 Max: 122 BP Min: 122/104 Max: 145/107 Resp Min: 16 Max: 17 SpO2 Min: 97 % Max: 100 % Most Recent : Vitals: 04/15/21 0907 BP: 128/88 Pulse: 80 Resp: 16 Temp: 36.7 ??C (98.1 ??F) SpO2: 98% I/O last 2 completed shifts: In: 1979 [NG/GT:1760; IV Piggyback:220] Out: 0 No intake/output data recorded. Physical Exam: General: No apparent distress Head and Face: Normocephalic, atraumatic. Improved swelling to L side of face. Neck: incision c/d/i with red rubber drain in place, no active bleeding, soft, flat Eyes: EOMI, sclera white Ears: Normal set, no drainage Nose: Dorsum is midline. No drainage or discharge. No epistaxis. Oral Cavity/Oropharynx: No active bleeding from defect in floor of mouth, appropriately healing, improved trismus Extremities: Extremities are warm and well perfused. Pulmonary: Normal quiet breathing. No respiratory distress, stridor, or wheeze. Neurologic: Alert and oriented, CNVII intact and symmetric Lab/Radiology/Diagnostic Review: Laboratory review: Lab results in the last 12 hours: No results found for this or any previous visit (from the past 12 hour(s)). Principal Problem: Dental abscess Procedures: Procedures: * INCISION AND DRAINAGE - ORAL CAVITY * INCISION AND DRAINAGE - NECK Assessment: 30 y.o. female that is POD1 from transcervical I&D of abscess. Continuing to do well Plan: #inspector dials space abscess - Pain control: tylenol, oxy - Airway: [place] - Diet: NPO, TFs - Abx: unasyn - DVT ppx: lovenox, SCDs, OOB - continue BID irrigations - OMFS for teeth extraction today Davey Ward MD Otolaryngology - Head & Neck Surgery Weekends & After 6pm: ENT Consult 04/15/2021 11:46 AM Cosigned by Angel Lal MD at 04/15/2021 4:50 PM CDT * Sean Ward MD - 04/14/2021 6:25 AM CDT Otolaryngology Daily Progress Note Subjective 30 y.o. female that is POD2 s/p Procedures: * INCISION AND DRAINAGE - ORAL CAVITY * INCISION AND DRAINAGE - NECK No active drainage. Irrigation continuing to cause some pain. Trismus subjectively the same to patient. WBC improved to 6.9 (11.1). OMFS will take for extractions tomorrow; NPO @ 0000. Objective Vitals: 24hr Min/Max: Temp Min: 36.4 ??C (97.5 ??F) Max: 36.8 ??C (98.2 ??F) Pulse Min: 71 Max: 95 BP Min: 114/80 Max: 137/87 Resp Min: 12 Max: 18 SpO2 Min: 97 % Max: 100 % Most Recent : Vitals: 04/14/21 0423 BP: 137/87 Pulse: 95 Resp: 18 Temp: 36.7 ??C (98.1 ??F) SpO2: 100% I/O last 2 completed shifts: In: 1085 [NG/GT:975; IV Piggyback:110] Out: - No intake/output data recorded. Physical Exam: General: No apparent distress Head and Face: Normocephalic, atraumatic. Stable swelling to L side of face. Neck: incision c/d/i with red rubber drain in place, no active bleeding, soft, flat Eyes: EOMI, sclera white Ears: Normal set, no drainage Nose: Dorsum is midline. No drainage or discharge. No epistaxis. Oral Cavity/Oropharynx: No active bleeding from defect in floor of mouth, appropriately healing, very slightly improved trismus Extremities: Extremities are warm and well perfused. Pulmonary: Normal quiet breathing. No respiratory distress, stridor, or wheeze. Neurologic: Alert and oriented, CNVII intact and symmetric Lab/Radiology/Diagnostic Review: Laboratory review: Lab results in the last 12 hours: Recent Results (from the past 12 hour(s)) CBC with auto differential Collection Time: 04/13/21 9:46 PM Result Value Ref Range WBC 6.9 3.8 - 9.9 K/cumm Hgb 12.2 11.9 - 15.5 g/dL Hct 37.2 35.6 - 45.5 % Plt 156 150 - 400 K/cumm MPV 10.8 9.1 - 12.3 fL RBC 4.18 3.90 - 5.20 M/cumm MCV 89.0 81.3 - 96.4 fL MCH 29.2 27.1 - 33.3 pg MCHC 32.8 32.3 - 35.7 g/dL RDW CV 12.3 11.1 - 14.9 % RDW SD 40.5 35.7 - 48.1 fL NRBC abs 0.00 0.00 - 0.01 K/cumm Basic metabolic panel Collection Time: 04/13/21 9:46 PM Result Value Ref Range Sodium 140 135 - 145 mmol/L Potassium, pl 4.5 3.3 - 4.9 mmol/L Chloride 104 97 - 110 mmol/L CO2 30 22 - 32 mmol/L Anion gap 6 2 - 15 mmol/L BUN 8 8 - 25 mg/dL Creatinine 0.69 0.60 - 1.10 mg/dL Glucose 113 70 - 199 mg/dL Calcium 9.3 8.5 - 10.3 mg/dL Phosphorus Collection Time: 04/13/21 9:46 PM Result Value Ref Range Phosphorus, pl 4.1 2.3 - 4.5 mg/dL Magnesium Collection Time: 04/13/21 9:46 PM Result Value Ref Range Magnesium 1.8 1.4 - 2.5 mg/dL Differential, auto Collection Time: 04/13/21 9:46 PM Result Value Ref Range Neutrophil abs 4.0 1.7 - 6.5 K/cumm Imm gran abs 0.0 0.0 - 0.1 K/cumm Lymphocyte abs 2.3 0.8 - 3.3 K/cumm Monocyte abs 0.5 0.2 - 0.8 K/cumm Eosinophil abs 0.1 0.0 - 0.5 K/cumm Basophil abs 0.0 0.0 - 0.1 K/cumm Neutrophil pct 58.1 % Imm gran pct 0.3 % Lymphocyte pct 33.0 % Monocyte pct 7.3 % Eosinophil pct 1.2 % Basophil pct 0.1 % eGFR Collection Time: 04/13/21 9:46 PM Result Value Ref Range eGFR >90 90 - 130 mL/min/1.73 m2 Principal Problem: Dental abscess Procedures: Procedures: * INCISION AND DRAINAGE - ORAL CAVITY * INCISION AND DRAINAGE - NECK Assessment: 30 y.o. female that is POD1 from transcervical I&D of abscess. Continuing to do well Plan: #inspector dials space abscess - Pain control: tylenol, oxy - Airway: [place] - Diet: NPO, TFs - Abx: unasyn - DVT ppx: lovenox, SCDs, OOB - continue BID irrigations - OMFS for teeth extraction tomorrow - NPO/NPT @ 0000 for OMFS Davey Ward MD Otolaryngology - Head & Neck Surgery Weekends & After 6pm: ENT Consult 04/14/2021 6:25 AM Cosigned by Angel Lal MD at 04/15/2021 4:50 PM CDT * Sean Ward MD - 04/13/2021 7:23 AM CDT Otolaryngology Daily Progress Note Subjective 30 y.o. female that is POD2 s/p Procedures: * INCISION AND DRAINAGE - ORAL CAVITY * INCISION AND DRAINAGE - NECK No active drainage. Irrigation causing some pain. Trismus stable. NPO @ 0000 for possible OMFS today. Objective Vitals: 24hr Min/Max: Temp Min: 36.4 ??C (97.5 ??F) Max: 37 ??C (98.6 ??F) Pulse Min: 78 Max: 103 BP Min: 115/78 Max: 127/80 Resp Min: 16 Max: 18 SpO2 Min: 98 % Max: 100 % Most Recent : Vitals: 04/13/21 0710 BP: 115/78 Pulse: 84 Resp: 18 Temp: 36.4 ??C (97.5 ??F) SpO2: 98% I/O last 2 completed shifts: In: 1415 [I.V.:200; NG/GT:995; IV Piggyback:220] Out: - I/O this shift: In: 40 [NG/GT:40] Out: - Physical Exam: General: No apparent distress Head and Face: Normocephalic, atraumatic. Improved swelling to L side of face. Neck: incision c/d/i with red rubber drain in place, no active bleeding, soft, flat Eyes: EOMI, sclera white Ears: Normal set, no drainage Nose: Dorsum is midline. No drainage or discharge. No epistaxis. Oral Cavity/Oropharynx: No active bleeding from defect in floor of mouth, appropriately healing Extremities: Extremities are warm and well perfused. Pulmonary: Normal quiet breathing. No respiratory distress, stridor, or wheeze. Neurologic: Alert and oriented, CNVII intact and symmetric Lab/Radiology/Diagnostic Review: Laboratory review: Lab results in the last 12 hours: Recent Results (from the past 12 hour(s)) CBC with auto differential Collection Time: 04/12/21 10:01 PM Result Value Ref Range WBC 11.1 (H) 3.8 - 9.9 K/cumm Hgb 12.8 11.9 - 15.5 g/dL Hct 37.5 35.6 - 45.5 % Plt 158 150 - 400 K/cumm MPV 10.7 9.1 - 12.3 fL RBC 4.28 3.90 - 5.20 M/cumm MCV 87.6 81.3 - 96.4 fL MCH 29.9 27.1 - 33.3 pg MCHC 34.1 32.3 - 35.7 g/dL RDW CV 12.6 11.1 - 14.9 % RDW SD 40.3 35.7 - 48.1 fL NRBC abs 0.00 0.00 - 0.01 K/cumm Basic metabolic panel Collection Time: 04/12/21 10:01 PM Result Value Ref Range Sodium 138 135 - 145 mmol/L Potassium, pl 3.8 3.3 - 4.9 mmol/L Chloride 100 97 - 110 mmol/L CO2 28 22 - 32 mmol/L Anion gap 10 2 - 15 mmol/L BUN 7 (L) 8 - 25 mg/dL Creatinine 0.72 0.60 - 1.10 mg/dL Glucose 142 70 - 199 mg/dL Calcium 9.0 8.5 - 10.3 mg/dL Phosphorus Collection Time: 04/12/21 10:01 PM Result Value Ref Range Phosphorus, pl 2.3 2.3 - 4.5 mg/dL Magnesium Collection Time: 04/12/21 10:01 PM Result Value Ref Range Magnesium 1.7 1.4 - 2.5 mg/dL Differential, auto Collection Time: 04/12/21 10:01 PM Result Value Ref Range Neutrophil abs 7.4 (H) 1.7 - 6.5 K/cumm Imm gran abs 0.1 0.0 - 0.1 K/cumm Lymphocyte abs 3.0 0.8 - 3.3 K/cumm Monocyte abs 0.5 0.2 - 0.8 K/cumm Eosinophil abs 0.1 0.0 - 0.5 K/cumm Basophil abs 0.0 0.0 - 0.1 K/cumm Neutrophil pct 66.5 % Imm gran pct 0.5 % Lymphocyte pct 27.4 % Monocyte pct 4.9 % Eosinophil pct 0.5 % Basophil pct 0.2 % eGFR Collection Time: 04/12/21 10:01 PM Result Value Ref Range eGFR >90 90 - 130 mL/min/1.73 m2 Principal Problem: Dental abscess Procedures: Procedures: * INCISION AND DRAINAGE - ORAL CAVITY * INCISION AND DRAINAGE - NECK Assessment: 30 y.o. female that is POD1 from transcervical I&D of abscess. Continuing to do well Plan: #inspector dials space abscess - Pain control: tylenol, oxy - Airway: [place] - Diet: NPO, TFs - Abx: unasyn - DVT ppx: lovenox, SCDs, OOB - continue BID irrigations - OMFS consult for teeth extraction - NPO/NPT @ 0000 for OMFS Davey Ward MD Otolaryngology - Head & Neck Surgery Weekends & After 6pm: ENT Consult 04/13/2021 7:23 AM Cosigned by Angel Lal MD at 04/15/2021 4:50 PM CDT * Sean Ward MD - 04/12/2021 12:15 PM CDT Otolaryngology Daily Progress Note Subjective 30 y.o. female that is POD0 s/p Procedures: * INCISION AND DRAINAGE - ORAL CAVITY * INCISION AND DRAINAGE - NECK Doing well, pain mostly controlled, no N/V, no dyspnea. No drainage from wound. Objective Vitals: 24hr Min/Max: Temp Min: 36.3 ??C (97.3 ??F) Max: 36.7 ??C (98.1 ??F) Pulse Min: 77 Max: 121 BP Min: 108/64 Max: 144/98 Resp Min: 10 Max: 17 SpO2 Min: 97 % Max: 100 % Most Recent : Vitals: 04/12/21 1150 BP: 117/76 Pulse: 78 Resp: 16 Temp: 36.6 ??C (97.8 ??F) SpO2: 100% I/O last 2 completed shifts: In: 720 [I.V.:500; NG/GT:220] Out: - I/O this shift: In: 300 [NG/GT:300] Out: - Physical Exam: General: No apparent distress Head and Face: Normocephalic, atraumatic. Neck: incision c/d/i with red rubber drain in place, no active bleeding, soft, flat Eyes: EOMI, sclera white Ears: Normal set, no drainage Nose: Dorsum is midline. No drainage or discharge. No epistaxis. Oral Cavity/Oropharynx: No active bleeding from defect in floor of mouth Extremities: Extremities are warm and well perfused. Pulmonary: Normal quiet breathing. No respiratory distress, stridor, or wheeze. Neurologic: Alert and oriented, CNVII intact and symmetric Lab/Radiology/Diagnostic Review: Laboratory review: Lab results in the last 12 hours: No results found for this or any previous visit (from the past 12 hour(s)). Principal Problem: Dental abscess Procedures: Procedures: * INCISION AND DRAINAGE - ORAL CAVITY * INCISION AND DRAINAGE - NECK Assessment: 30 y.o. female that is POD1 from transcervical I&D of abscess. Doing well Plan: #inspector dials space abscess - Pain control: tylenol, oxy - Airway: [place] - Diet: NPO, TFs - Abx: unasyn - DVT ppx: lovenox, SCDs, OOB - continue BID irrigations - OMFS consult for teeth extraction - NPO/NPT @ 0000 for OMFS Davey Ward MD Otolaryngology - Head & Neck Surgery Weekends & After 6pm: ENT Consult 04/12/2021 12:16 PM Cosigned by Angel Lal MD at 04/15/2021 4:50 PM CDT * Beverly Linares RN - 04/12/2021 8:12 AM CDT CM Initial Assessment Interview Note Information Obtained From: Patient (04/12/21806) Admission Source: Non Health Care Facility Point of Origin. Impression: 30 y/o female s/p I&D of oral cavity and neck. Plan Includes: Safe discharge home with family. Patient lives with her children ages 14 on down. Her mother will be staying with her when she is discharged. Patient mother has agreed to care for the patient when discharged. Primary Source of Transportation: Mother Health Insurance Coverage: Property [employer] [place] Prescription Coverage: Yes Pharmacy: [facility] Primary Care Provider: No, Physician Dr Alicia Calderon Prior to Admission: Support System: Parent Support system contact info (name, phone, availablity): Guanako Chatterjee (mother) [phone] Home Care Services: No Durable Medical Equipment: None Living Arrangements: Children Type of Residence: Private residence Steps in home? : Yes, Inside home Number of steps inside:: 15 steps (04/12/21806) Potential discharge needs include: Home Health: long-term (04/12/21806) Dialysis: n/a Behavioral Health Services: Behavioral Health Services: No (04/12/21806) Patient expects to be Discharged to: Private residence, (04/12/21806) Additional Information: Address and phone number verified with face sheet. Insurance and emergency contact verified with patient/family. Role of CM explanied. Patient does not have a preference for [employer] and a list of agencies was offered to patient. Patient's Identified Problem/Goal Problem: Ensure acute medical needs are met and that patient has a safe discharge plan. Goal: Secure a discharge plan that patient/family are agreeable with and ensure patient has continuum of care. Case management will follow for discharge planning and send referrals as needed. Goals include: To assure continuity of care, To maximize coping skills, To assure patient is in a safe environment and To assure access to community resources. Plan includes: 1. Collaboration with patient, MD, direct care nurse, Encoding Clerk, Nurse Coordinator and other members of the health care team to assure needed interventions completed. 2. Return patient to optimal level of self-care post discharge. 3. Group Director Experience will follow for Discharge Planning - interventions as needed 4. Anticipated level of care at discharge 5. Planned Discharge Disposition Based on a comprehensive family assessment, assistance with instrumental activities of daily livingafter discharge will be provided by patient and mother Through the course of our work I determined that the mother possesses the skill and ability to provide and monitor the care of the patient when she returns home. The mother has the capacity to provide/monitor/arrange for the care of the patient. Finally, we determined that the mother has the knowledge of available resources and that combining them with their existing resources will suffice to sustain and care for the patient when she returns home. The treatment team is aware of this information. All are in agreement with the aftercare plan. Beverly Linares RN * Ed, Sean Cedillo MD - 04/11/2021 7:42 PM CDT Otolaryngology - Post Operative Check Subjective 30 y.o. female that is POD0 s/p Procedures: * INCISION AND DRAINAGE - ORAL CAVITY * INCISION AND DRAINAGE - NECK Doing well, pain mostly controlled, no N/V, no dyspnea Objective Vitals: 24hr Min/Max: Temp Min: 36.3 ??C (97.3 ??F) Max: 36.8 ??C (98.3 ??F) Pulse Min: 71 Max: 121 BP Min: 108/64 Max: 148/97 Resp Min: 10 Max: 19 SpO2 Min: 92 % Max: 100 % Most Recent : Vitals: 04/11/21 1630 BP: 129/97 Pulse: 121 Resp: 16 Temp: 36.5 ??C (97.7 ??F) SpO2: 99% I/O last 2 completed shifts: In: 500 [I.V.:500] Out: - No intake/output data recorded. Physical Exam: General: No apparent distress Head and Face: Normocephalic, atraumatic. Neck: incision c/d/i with red rubber drain in place, no active bleeding, soft, flat Eyes: EOMI, sclera white Ears: Normal set, no drainage Nose: Dorsum is midline. No drainage or discharge. No epistaxis. Oral Cavity/Oropharynx: No active bleeding from defect in floor of mouth Extremities: Extremities are warm and well perfused. Pulmonary: Normal quiet breathing. No respiratory distress, stridor, or wheeze. Neurologic: Alert and oriented, CNVII intact and symmetric Lab/Radiology/Diagnostic Review: Laboratory review: Lab results in the last 12 hours: Recent Results (from the past 12 hour(s)) COVID-19 Coronavirus RNA Nasopharyngeal Collection Time: 04/11/21 7:48 AM Specimen: Nasopharyngeal Result Value Ref Range COVID-19 RNA Negative Negative Employeed in healthcare? No status? No Group care resident? No Hospitalized? No Is patient in ICU? No Symptomatic as defined by CDC? No POC Blood Gas and Chemistries, Arterial - Collection Time: 04/11/21 9:03 AM Result Value Ref Range K POC 9.2 (Critical) 3.3 - 4.9 mmol/L Hct, POC 41.0 36.3 - 45.3 % Total Hb, POC 13.5 11.9 - 15.5 g/dL POC Blood Gas and Chemistries, Arterial - Collection Time: 04/11/21 9:27 AM Result Value Ref Range K POC 3.5 3.3 - 4.9 mmol/L POCT hCG, urine Collection Time: 04/11/21 9:33 AM Result Value Ref Range HCG, ur, POC Negative Lot Number [id number] QC Backgroud Clear Acceptable QC Control Line Acceptable Aerobic and anaerobic culture and gram stain Abscess Neck, left Collection Time: 04/11/21 10:42 AM Specimen: Neck, left; Abscess Result Value Ref Range Direct Specimen Exam (.) Stain: Abundant polymorphonuclear leukocytes seen. Abundant Gram Positive Cocci Moderate Gram Positive Bacilli Principal Problem: Dental abscess Procedures: Procedures: * INCISION AND DRAINAGE - ORAL CAVITY * INCISION AND DRAINAGE - NECK Assessment: 30 y.o. female that is POD0 s/p above procedures, doing well. Plan: - Pain control: tylenol, oxy - Airway: [place] - Diet: NPO, TFs - Abx: unasyn - DVT ppx: lovenox, SCDs, OOB Davey Ward MD Otolaryngology - Head & Neck Surgery Weekends & After 6pm: ENT Consult 04/11/2021 7:42 PM documented in this encounter Consult Notes * Hollis Da Silva DDS - 04/13/2021 10:02 AM CDT Otolaryngology - Head & Neck Surgery Consult Attending Physician: Hollis Da Silva DDS,MS Reason for Consult: Dental Abscess Requesting Provider: Lukasz Snowden Sen is a 30 y.o. female s/p I&D with trismus and multiple non restorable teeth Past Medical History: Diagnosis Date ??? Dental abscess ??? Encounter for routine follow-up exam - (Added by TW Conv) ??? Preeclampsia Hx of pre eclampsia with at least 2 pregnancies. Patient Active Problem List Diagnosis ??? 38 [...] Spontaneous vaginal delivery ??? Dental abscess Past Surgical History: Procedure Laterality Date ??? OTHER SURGICAL HISTORY labial surgery Social History Tobacco Use ??? Smoking status: Never Smoker ??? Smokeless tobacco: Never Used Substance Use Topics ??? Alcohol use: No ??? Drug use: No History reviewed. No pertinent family history. Allergies Allergen Reactions ??? Sulfa (Sulfonamide Antibiotics) Rash Medications Prior to Admission Medication Sig Dispense Refill Last Dose ??? acetaminophen 500 mg capsule Take 1 capsule (500 mg total) by mouth every 6 (six) hours as needed for pain. 60 tablet 0 ??? ferrous sulfate 325 mg (65 mg of elemental iron) tablet Take 1 tablet (325 mg total) by mouth 2(two) times a day. 60 tablet 5 ??? ibuprofen (ADVIL,MOTRIN) 600 mg tablet Take 1 tablet (600 mg total) by mouth every 6 (six) hours as needed for pain. 60 tablet 0 ??? PNV with bcnrexq-dpyu-AN ( VITAMIN PLUS LOW IRON) 27 mg iron- 1 mg tablet Take 1 tabletby mouth daily. Objective Physical Exam: Vitals: 04/12/21 1544 04/12/21 2150 04/13/21 0445 04/13/21 0710 BP: 116/71 122/88 127/80 115/78 BP Location: Left arm Left arm Left arm Left arm Patient Position: HOB 30 degrees Sitting Sitting Sitting Pulse: 88 103 85 84 Resp: 16 18 16 18 Temp: 36.6 ??C (97.9 ??F) 36.8 ??C (98.2 ??F) 37 ??C (98.6 ??F) 36.4 ??C (97.5 ??F) TempSrc: Axillary Axillary Axillary Axillary SpO2: 100% 100% 100% 98% Weight: Height: General: Well-developed, well-nourished in no apparent distress. Appropriate affect. Head and Face: Normocephalic, atraumatic. Lower left third facial swelling Skin: No cutaneous lesions of the face or neck. Neurologic: Cranial nerves II through XII are grossly intact. Eyes: Pupils are equal, round, and reactive to light and accommodation. Extraocular muscles are intact. Ears: WNL Nose: Dorsum is midline. No drainage or discharge. Oral Cavity/Oropharynx: Unable to exam. Patient has limited opening due to pain, inflammation, infection. Neck: Drain intact Plan/ Recommendations 30 y.o. year old female with multiple non-restorable teeth and s/p I&D with severe trismus Continue Antibiotics Implement Decadron 8mg 8qh IVP Patient will return to clinic Sunday(04-15-2021) for surgical extractions under general anesthesia in clinic if opening is manageable for surgery Thank you for this consult. We will be available if you have further questions or concerns. * Lee Ann Heart, CAL - 04/12/2021 10:43 AM CDTAssociated Order(s): IP CONSULT TO NUTRITION SERVICES Nutrition Tube Feeding Assessment Reason for Assessment: TF Assessment Encounter Date: 04/12/21 10:43 AM Patient is a 30 y.o. female with chief complaint of trismus. LOS is 1 days. HPI: Martina Chatterjee is a 30 y.o. female Presenting with a inspector dials space abscess. Patient with history of chronic left mandibular molar pain and was told by a dentist she needed this extracted. Overthe last 2 weeks she hs had worsening dental pain, jaw pain, and difficulty with mouth opening. Sunday she was prescribed penicillin by her PCP without improvement. 3 days ago she noticed she was unable to open her mouth enough to take her antibiotic. Has been tolerating liquids, but not solids dueto her trismus. No voice changes, SOB, or difficulty tolerating secretions. No fevers/chills. Seen at OSH where she was given unasyn and CT concerning for inspector dials space abscess. The pt is POD 1 fro m I&D of oral cavity and neck. Small bore gastric tube in place. Terminates in fundus. Plant tostart tube feeding today. Objective Past Medical History: Diagnosis Date ??? Dental abscess ??? Encounter for routine follow-up exam - (Added by MIROSLAVA Conv) ??? Preeclampsia Hx of pre eclampsia with at least 2 pregnancies. Past Surgical History: Procedure Laterality Date ??? OTHER SURGICAL HISTORY labial surgery Allergies Allergen Reactions ??? Sulfa (Sulfonamide Antibiotics) Rash Social History Tobacco Use ??? Smoking status: Never Smoker ??? Smokeless tobacco: Never Used Substance Use Topics ??? Alcohol use: No History reviewed. No pertinent family history. Anthropometrics: Wt Readings from Last 3 Encounters: 04/12/21 59.8 kg (131 lb 12.8 oz) 06/10/18 86.2 kg (190 lb) 06/03/18 87.8 kg (193 lb 8 oz) Anthropometrics Weight: 59.8 kg (131 lb 12.8 oz) Admission Weight : 59.8 kg Weight Change: -24.13 kg (-53.20 lbs) IBW/kg (Calculated) : 56.7 kg Height: 165.1 cm (5' 5 ) Weight in (lb) to have BMI = 25: 149.9 BMI (Calculated): 21.9 Nutrition Needs Calculations: Calculated Energy Needs Using Equations Weight Used for Equation Calculations (RD Determined): 59.8 kg (131 lb 13.4 oz) Weight: 59.8 kg (131 lb 12.8 oz) Height: 165.1 cm (5' 5 ) Estimated Protein Needs Type of Weight Used for Estimated Protein : Current Protein Needs Based on g/k.3 Total Protein Estimated Needs (gm): 77.72 Kcal/kg Type of Weight Used for Estimated Kcals: Current Kcal/k Total Kcal/kg Estimated Needs : 1793.52 Estimated Fluid Needs Type of Weight Used for Estimated Fluid Needs: Current Fluid Needs Based on : 30 ml/kg Total Fluid Estimated Needs: 1793.52 Vital Signs: 24hr Min/Max: Temp Min: 36.3 ??C (97.3 ??F) Max: 36.7 ??C (98.1 ??F) Pulse Min: 77 Max: 121 BP Min: 108/64 Max: 148/97 Resp Min: 10 Max: 19 SpO2 Min: 94 % Max: 100 % Most Recent : Vitals: 04/12/21 0342 BP: 131/91 Pulse: 81 Resp: 16 Temp: 36.3 ??C (97.3 ??F) SpO2: 100% Height: 165.1 cm (5' 5 ) Weight: 59.8 kg (131 lb 12.8 oz) Weight Change: -24.13 kg (-53.20 lbs) Medications: Scheduled Meds: ampicillin-sulbactam, 3 g, intravenous, Q6H OSKAR chlorhexidine, 15 mL, mouth/throat, QID heparin, 5,000 Units, subcutaneous, Q8H OSKAR sodium chloride 0.9%, 0.5-20 mL, intra-catheter, Q8H OSKAR Continuous Infusions: dextrose 5% and sodium chloride 0.45%, 100 mL/hr, Last Rate: 100 mL/hr (04/12/21 0545) Lactated Ringer's, 30 mL/hr Lab Review: Sodium Date Value Ref Range Status 04/11/2021 137 135 - 145 mmol/L Final Potassium, pl Date Value Ref Range Status 04/11/2021 3.8 3.3 - 4.9 mmol/L Final BUN Date Value Ref Range Status 04/11/2021 9 8 - 25 mg/dL Final Creatinine Date Value Ref Range Status 04/11/2021 0.70 0.60 - 1.10 mg/dL Final Phosphorus, pl Date Value Ref Range Status 04/11/2021 3.7 2.3 - 4.5 mg/dL Final Magnesium Date Value Ref Range Status 04/11/2021 1.7 1.4 - 2.5 mg/dL Final Calcium Date Value Ref Range Status 04/11/2021 9.3 8.5 - 10.3 mg/dL Final No results found for: HGBA1C POC Glucose: Nursing Assessment: Intake/Output Summary (Last 24 hours) at 04/12/2021 1043 Last data filed at 04/12/2021 1030 Gross per 24 hour Intake 1020 ml Output -- Net 1020 ml Gastrointestinal Gastrointestinal (WDL): Exceptions to WDL Bowel Sounds (All Quadrants): Active Last BM 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) Last BM 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) Leeroy Scale Score: 21 Skin Integrity: Surgical incision Dietary Orders (From admission, onward) Start Ordered 04/13/21 0001 NPO Diet Diet effective midnight Comments: NPO/NPT for possible OMFS starting 04/13 0000 04/12/21 0808 04/12/21 0956 Diet, Tube Feeding With Tray Osmolite 1.5 Jabari (per small bore NG tube); 240; Q 4 hrs (x5; start tube feeding with 60 ml and increase by 60 ml q 4 hours to a goal of 240 ml q 4 hours x 5; 0500, 0900, 1300, 1700, 2100); 180; Water; With each bolus Diet effective now Question Answer Comment Tube Feeding Formula: Osmolite 1.5 Jabari per small bore NG tube Tube Feeding Bolus (mL): 240 Tube Feeding Bolus Frequency: Q 4 hrs x5; start tube feeding with 60 ml and increase by 60 ml q 4 hours to a goal of 240 ml q 4 hours x 5; 0500, 0900, 1300, 1700, 2100 Tube Feeding Flush (mL): 180 Flush Type: Water Flush Frequency: With each bolus 04/12/21 0958 Impression: The pt states she has been having trouble chewing over the past couple of weeks due to difficulty opening her mouth. She has been tolerating liquids and has been drinking 3 nutritional shakes per day. She states her UBW is 135 lbs. Current wt is 131 lbs. Pt does not meet criteria for malnutrition at this time. Will start tube feeding today. Hold feedings at PR for OMFS consult tomorrow. NUTRITION DIAGNOSIS Nutrition Diagnosis 1: Swallowing difficulty Related to: Acute illness/injury, Oral pharyngeal Evidenced by: Patient interview, PO under 50%, Weight loss INTERVENTION Start Osmolite 1.5 with 60 ml and advance by 60 ml q 4 hours to a goal of 240 ml q 4 hours x 5. TF at goal rate provides 1800 calories (30 calories/kg), 75 gm PRO (1.3 gm/kg BW), 912 ml free water. Flush with 180 mL Q 4 hours x 5 , adjust per hydration status. Monitor electrolytes replete PRN. Follow aspiration precautions. PO plan is pending. GOAL(S) / MONITORING: Goals: Tolerance of enteral feeding at goal rate, Advance to oral intake as medically able Interventions: Enteral nutrition administration Monitoring and Evaluation: Stool patterns, Swallow function, TF tolerance, Labs, Weight changes Lee Ann Heart RD [phone] * Yohana Taylor MD - 04/11/2021 3:17 AM CDTAssociated Order(s): IP CONSULT TO ENT Otolaryngology - Head & Neck Surgery Consult Attending Physician: Lukasz Reason for Consult: inspector dials space abscess Requesting Team: ED Requesting Provider: Rock Mack Isi Chatterjee is a 30 y.o. female Presenting with a inspector dials space abscess. Patient with history of chronic left mandibular molar pain and was told by a dentist she needed this extracted. Overthe last 2 weeks she hs had worsening dental pain, jaw pain, and difficulty with mouth opening. Sunday she was prescribed penicillin by her PCP without improvement. 3 days ago she noticed she was unable to open her mouth enough to take her antibiotic. Has been tolerating liquids, but not solids dueto her trismus. No voice changes, SOB, or difficulty tolerating secretions. No fevers/chills. Seen at OSH where she was given unasyn and CT concerning for inspector dials space abscess. Past Medical History: Diagnosis Date ??? Encounter for routine follow-up exam - (Added by TW Conv) ??? Preeclampsia Hx of pre eclampsia with at least 2 pregnancies. Patient Active Problem List Diagnosis ??? 38 weeks gestation of ??? History of gHTN with prior ??? History of marijuana use ??? 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 Marginal insertion of umbilical cord affecting management of mother ??? Vaginal candidiasis ??? Iron deficiency anemia ??? Labor and delivery, indication for care ??? Spontaneous vaginal delivery History reviewed. No pertinent surgical history. Social History Tobacco Use ??? Smoking status: Never Smoker ??? Smokeless tobacco: Never Used Substance Use Topics ??? Alcohol use: No ??? Drug use: No History reviewed. No pertinent family history. Allergies Allergen Reactions ??? Sulfa (Sulfonamide Antibiotics) Rash (Not in a hospital admission) Review of Systems: 10 point ROS was performed and otherwise negative except what is indicated in the HPI. Objective Physical Exam: Vitals: 04/10/21 2359 BP: 118/87 Pulse: 80 Resp: 18 Temp: 36.8 ??C (98.3 ??F) SpO2: 100% Weight: 83.9 kg (185 lb) Height: 165.1 cm (5' 5 ) General: Awake, NAD Head: NC, AT Eyes: Sclera white, no injection or chemosis, no periorbital edema Ears: external ears normal Nose: No nasal bleeding, no flaring Mouth: Trismus to <1 cm. Left mandibular 2nd and 3rd molars appear missing with adjacent gingival edema and tenderness. FOM soft. Oral cavity exam limited 2/2 trismus. Neck: Soft and flat. Left submandibular and level 2 tenderness, but no fluctuance, edema, erythema or induration. CV: RRR Pulm: NLB, no stridor, no stertor Skin: WWP Neuro: OE, R, FC; AOx3; CN intact; MAEWx4 Lab/Radiology/Diagnostic Review: CT neck: images and reports were reviewed by me. 1.5x2 cm abscess between the left medial pterygoidand ramus that extends inferiorly. Left periapical abscess to the left mandibular 3rd molar. Procedures performed: None Assessment/Plan 30 y.o. female with left inspector dials space abscess. CT neck shows a 1.5 x 2 cm abscess medial to theleft medial pterygoid that is likely coming from the left 3rd mandibular molar where a pericapsularapical abscesses noted. Intraoral incision and drainage could not be performed at bedside given thelevel of trismus. No evidence of Francisco's. Will plan for OR for incision and drainage and possible dental extractions. - admit to ENT - OR for transcervical versus intraoral incision and drainage, dental extractions today - OMFS consult - continue IV unasyn - COVID test Thank you for the interesting consult. Please call if you have further questions or concerns. Yohana Taylor MD Resident Physician Otolaryngology - Head and Neck Surgery [phone] Cosigned by Angel Lal MD at 04/15/2021 4:51 PM CDT documented in this encounter Nursing Notes * Arielle Kendrick RN - 04/11/2021 1:28 PM CDT Patient request to call Guanako Chatterjee, Mother [phone]. Patient requested to contact her PCP Alicia Calderon [phone]. documented in this encounter ED Notes * Edison Cooper MD - 04/16/2021 10:15 PM CDT HPI Chief Complaint Patient presents with ??? Abscess Patient is a 30-year-old female with no significant past medical history presenting with a dental abscess. She presented from an outside hospital. CT imaging was consistent with the dental abscess involving the left masseter muscle. Symptoms began 3 days ago when she went to urgent care and was pres cribed penicillin for dental pain. Over the next 3 days her abscess has grown. She denies fever, nausea, difficulty breathing, airway obstruction. She endorses a sore throat and has difficulty opening her mouth to provide direct observation. She has unilateral swelling of the left sublingual region. Patient History: Patient Active Problem List Diagnosis Date Noted ??? Dental abscess 04/11/2021 ??? Spontaneous vaginal delivery 06/11/2018 ??? Labor and delivery, indication for care 06/10/2018 ??? Iron deficiency anemia 05/22/2018 ??? Vaginal candidiasis 03/12/2018 ??? Marginal insertion of umbilical cord affecting management of mother 03/05/2018 ??? 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 History of gHTN with prior 12/31/2017 ??? History of marijuana use 12/31/2017 ??? 38 weeks gestation of 12/03/2017 Past Medical History: Diagnosis Date ??? Dental abscess ??? Encounter for routine follow-up exam - (Added by TW Conv) ??? Preeclampsia Hx of pre eclampsia with at least 2 pregnancies. Past Surgical History: Procedure Laterality Date ??? OTHER SURGICAL HISTORY labial surgery History reviewed. No pertinent family history. Social History Tobacco Use ??? Smoking status: Never Smoker ??? Smokeless tobacco: Never Used Substance Use Topics ??? Alcohol use: No ??? Drug use: No Social History Social History Narrative ??? Not on file Review of Systems Review of Systems Constitutional: Negative for chills and fever. HENT: Negative for ear pain and sore throat. Eyes: Negative for pain and visual disturbance. Respiratory: Negative for cough and shortness of breath. Cardiovascular: Negative for chest pain and palpitations. Gastrointestinal: Negative for abdominal pain and vomiting. Genitourinary: Negative for dysuria and hematuria. Musculoskeletal: Negative for arthralgias and back pain. Skin: Negative for color change and rash. Neurological: Negative for seizures and syncope. All other systems reviewed and are negative. Physical Exam ED Triage Vitals Temp Pulse Resp BP SpO2 04/10/21 2359 04/10/21 2359 04/10/21 2359 04/10/21 2359 04/10/21 235 36.8 ??C (98.3 ??F) 80 18 118/87 100 % Temp src Heart Rate Source Patient Position BP Location FiO2 (%) 04/11/21 0854 04/11/21 0854 04/11/21 1120 04/11/21 1120 -- Temporal Monitor Lying Left arm Physical Exam Vitals and nursing note reviewed. Constitutional: General: She is not in acute distress. Appearance: She is well-developed. HENT: Head: Normocephalic and atraumatic. Mouth/Throat: Comments: Mouth was unable to be examined due to inability to open her mouth secondary to pain. Eyes: Conjunctiva/sclera: Conjunctivae normal. Cardiovascular: Rate and Rhythm: Normal rate and regular rhythm. Heart sounds: Normal heart sounds. No murmur heard. Pulmonary: Effort: Pulmonary effort is normal. No respiratory distress. Breath sounds: Normal breath sounds. Abdominal: General: Bowel sounds are normal. There is no distension. Palpations: Abdomen is soft. Tenderness: There is no abdominal tenderness. There is no guarding. Musculoskeletal: Cervical back: Neck supple. Tenderness present. No rigidity. Lymphadenopathy: Cervical: Cervical adenopathy present. Skin: General: Skin is warm and dry. Neurological: Mental Status: She is alert and oriented to person, place, and time. MDM Medical Decision Making Differential Diagnosis or Management Options: Patient is a 30 yo presenting with a left sided dental abscess. She endorses sore throat but denies dyspnea. She endorses odynophagia. She denies fever, chest pain, and drainage. CT from outside facility shows abscess involving the masseter muscle. [place] consult ENT. Dispo is pending ENT recommendations. Attending Summary of Care ED Course as of Apr 16 2229 Time: 04/11 0244 Comment: Teaching Resident Note: 30 yo F no PMH presents as transfer from OSH with left lower tooth abscess. Sxs began3 days ago with dental pain. Got PCN at urgent care on . Has had worsening facial swelling and pain including sore throat. No respiratory distress. Handling secretions well. On exam patient has left lower facial swelling with trismus. By: Alexy Wilkerson MD Time: 04/11 7281 Comment: ENT aware By: Alexy Wilkerson MD Abscess Dental abscess Abscess of inspector dials space of mouth Edison Cooper MD Resident 04/16/[id number] Cosigned by Hiro Taylor MD at 04/23/2021 1:22 AM CDT Associated attestation - Hiro Taylor MD - 04/23/2021 1:22 AM CDT I evaluated the patient on 04/11/21 and agree with the history, exam, and plan as documented unless otherwise noted. 30yof transferred from OSH for L masseter abscess, evaluated by ENT in [place],admit to their service for further management. * Natacha Garcia RN - 04/10/2021 11:51 PM CDT Pt to ED by car as transfer from [facility] for ENT consult due to findings of left inspector dials space abscess. Pt has had left sided dental pain x1 week, was seen at , pt was prescribed penicillin and was taking for 2 days, today pt was unable to open mouth today to take medication due to pain. Pt denies SOB, pt is tolerating secretions, speaking in full sentences. documented in this encounter Miscellaneous Notes * Plan of Care - Katey Méndez RN - 04/19/2021 10:36 AM CDT Problem: Health Behavior: Goal: Understanding of discharge needs will improve Outcome: Progressing Problem: Lack of Knowledge: Goal: Ability to understand airway maintenance will improve Outcome: Progressing Problem: Respiratory: Goal: Ability to maintain a clear airway will improve Outcome: Progressing Goal: Ability to demonstrate an effective cough will improve Outcome: Progressing Goal: Ability to achieve and maintain a regular respiratory rate will improve Outcome: Progressing Goal: Verbalizations of increased ease of respirations will increase Outcome: Progressing Problem: Lack of Knowledge: Goal: Knowledge of the prescribed therapeutic regimen will improve Outcome: Progressing Problem: Activity: Goal: Ability to ambulate will improve Outcome: Progressing Goal: Muscle strength will improve Outcome: Progressing Goal: Range of joint motion will improve Outcome: Progressing Problem: Physical Regulation: Goal: Ability to avoid complications of mobility impairment will improve Outcome: Progressing Problem: Safety: Goal: Ability to safely transfer will improve Outcome: Progressing Problem: Lack of Knowledge: Goal: Ability to develop a pain control plan will improve Outcome: Progressing Goal: Ability to identify pain intensity on a pain scale and rate it consistently will improve Outcome: Progressing Goal: Ability to notify healthcare provider of pain before it becomes unmanageable or unbearable will improve Outcome: Progressing Problem: Medication: Goal: Satisfaction with pain management regimen will improve Outcome: Progressing Problem: Sensory: Goal: Ability to identify factors that increase the pain will improve Outcome: Progressing Goal: Pain level will decrease Outcome: Progressing Problem: Nutrition Description: Altered Nutrition and Hydration Goal: Patient maintains adequate hydration Outcome: Progressing Goal: Patient maintains weight Outcome: Progressing Goals: Clinical Goals for the Shift: PO intake, pt will remain free of falls Summary: * Plan of Care - Dionne Torres RN - 04/18/2021 8:10 PM CDT Problem: Health Behavior: Goal: Understanding of discharge needs will improve Outcome: Progressing Problem: Lack of Knowledge: Goal: Ability to understand airway maintenance will improve Outcome: Progressing Problem: Respiratory: Goal: Ability to maintain a clear airway will improve Outcome: Progressing Goal: Ability to demonstrate an effective cough will improve Outcome: Progressing Goal: Ability to achieve and maintain a regular respiratory rate will improve Outcome: Progressing Goal: Verbalizations of increased ease of respirations will increase Outcome: Progressing Problem: Lack of Knowledge: Goal: Knowledge of the prescribed therapeutic regimen will improve Outcome: Progressing Problem: Activity: Goal: Ability to ambulate will improve Outcome: Progressing Goal: Muscle strength will improve Outcome: Progressing Goal: Range of joint motion will improve Outcome: Progressing Problem: Physical Regulation: Goal: Ability to avoid complications of mobility impairment will improve Outcome: Progressing Problem: Safety: Goal: Ability to safely transfer will improve Outcome: Progressing Problem: Lack of Knowledge: Goal: Ability to develop a pain control plan will improve Outcome: Progressing Goal: Ability to identify pain intensity on a pain scale and rate it consistently will improve Outcome: Progressing Goal: Ability to notify healthcare provider of pain before it becomes unmanageable or unbearable will improve Outcome: Progressing Problem: Medication: Goal: Satisfaction with pain management regimen will improve Outcome: Progressing Problem: Sensory: Goal: Ability to identify factors that increase the pain will improve Outcome: Progressing Goal: Pain level will decrease Outcome: Progressing Problem: Nutrition Description: Altered Nutrition and Hydration Goal: Patient maintains adequate hydration Outcome: Progressing Goal: Patient maintains weight Outcome: Progressing Goals: Clinical Goals for the Shift: PO intake will improve and pain management * Plan of Care - Beverly Linares RN - 04/18/2021 3:56 PM CDT Plan of Care Note: Per Medical Chart/Rounds/DCAM: Tolerating soft foods. Dobhoff to be removed. Patient to discharge tomorrow with no home health needs. ADD: 04/19 Plan & referrals made/in place: [facility] Home Health referral cancelled and [facility] referrals cancelled. Support following discharge: Mother Transportation: Mother F/U Appointment to be arranged prior to discharge. Patient's Identified Problem/Goal: Problem: Ensure acute medical needs are met and that patient has a safe discharge plan. Goal: Secure a discharge plan that patient/family are agreeable with and ensure patient has continuum of care. Patient and/or family are agreeable with plan. Case Manger will continue to follow and assist with discharge planning as needed. If any further discharge needs arise, please contact the covering correctional counselor/case manager. * Plan of Care - Katey Méndez RN - 04/18/2021 10:22 AM CDT Problem: Health Behavior: Goal: Understanding of discharge needs will improve Outcome: Progressing Problem: Lack of Knowledge: Goal: Ability to understand airway maintenance will improve Outcome: Progressing Problem: Respiratory: Goal: Ability to maintain a clear airway will improve Outcome: Progressing Goal: Ability to demonstrate an effective cough will improve Outcome: Progressing Goal: Ability to achieve and maintain a regular respiratory rate will improve Outcome: Progressing Goal: Verbalizations of increased ease of respirations will increase Outcome: Progressing Problem: Lack of Knowledge: Goal: Knowledge of the prescribed therapeutic regimen will improve Outcome: Progressing Problem: Activity: Goal: Ability to ambulate will improve Outcome: Progressing Goal: Muscle strength will improve Outcome: Progressing Goal: Range of joint motion will improve Outcome: Progressing Problem: Physical Regulation: Goal: Ability to avoid complications of mobility impairment will improve Outcome: Progressing Problem: Safety: Goal: Ability to safely transfer will improve Outcome: Progressing Problem: Lack of Knowledge: Goal: Ability to develop a pain control plan will improve Outcome: Progressing Goal: Ability to identify pain intensity on a pain scale and rate it consistently will improve Outcome: Progressing Goal: Ability to notify healthcare provider of pain before it becomes unmanageable or unbearable will improve Outcome: Progressing Problem: Medication: Goal: Satisfaction with pain management regimen will improve Outcome: Progressing Problem: Sensory: Goal: Ability to identify factors that increase the pain will improve Outcome: Progressing Goal: Pain level will decrease Outcome: Progressing Problem: Nutrition Description: Altered Nutrition and Hydration Goal: Patient maintains adequate hydration Outcome: Progressing Goal: Patient maintains weight Outcome: Progressing Goals: Clinical Goals for the Shift: pain control, PO intake will improve Summary: * Plan of [place] - Erika Lucia RN - 04/18/2021 12:50 AM CDT Problem: Health Behavior: Goal: Understanding of discharge needs will improve Outcome: Progressing Problem: Lack of Knowledge: Goal: Ability to understand airway maintenance will improve Outcome: Progressing Problem: Respiratory: Goal: Ability to maintain a clear airway will improve Outcome: Progressing Goal: Ability to demonstrate an effective cough will improve Outcome: Progressing Goal: Ability to achieve and maintain a regular respiratory rate will improve Outcome: Progressing Goal: Verbalizations of increased ease of respirations will increase Outcome: Progressing Problem: Lack of Knowledge: Goal: Knowledge of the prescribed therapeutic regimen will improve Outcome: Progressing Problem: Activity: Goal: Ability to ambulate will improve Outcome: Progressing Goal: Muscle strength will improve Outcome: Progressing Goal: Range of joint motion will improve Outcome: Progressing Problem: Physical Regulation: Goal: Ability to avoid complications of mobility impairment will improve Outcome: Progressing Problem: Safety: Goal: Ability to safely transfer will improve Outcome: Progressing Problem: Lack of Knowledge: Goal: Ability to develop a pain control plan will improve Outcome: Progressing Goal: Ability to identify pain intensity on a pain scale and rate it consistently will improve Outcome: Progressing Goal: Ability to notify healthcare provider of pain before it becomes unmanageable or unbearable will improve Outcome: Progressing Problem: Medication: Goal: Satisfaction with pain management regimen will improve Outcome: Progressing Problem: Sensory: Goal: Ability to identify factors that increase the pain will improve Outcome: Progressing Goal: Pain level will decrease Outcome: Progressing Problem: Nutrition Description: Altered Nutrition and Hydration Goal: Patient maintains adequate hydration Outcome: Progressing Goal: Patient maintains weight Outcome: Progressing Goals: Clinical Goals for the Shift: Pain management, wound care , soft diet. Summary:Patient states her pain is controlled with her current pain regimen. Wound care as ordered.Drain flushed by MD. Tolerating soft diet. * Plan of Care - Diana Mosher - 04/17/2021 9:08 AM CDT Chart review done. Patient is not medically ready for discharge today per assigned nurse. PO intakeneeds to be better. CM will continue to follow for discharge needs. For weekend assistance,please call the on-call weekend correctional counselor/case manager @ [phone]. * Plan of Care - Angie Crespo RN - 04/17/2021 7:32 AM CDT Problem: Health Behavior: Goal: Understanding of discharge needs will improve Outcome: Progressing Problem: Lack of Knowledge: Goal: Ability to understand airway maintenance will improve Outcome: Progressing Problem: Respiratory: Goal: Ability to maintain a clear airway will improve Outcome: Progressing Goal: Ability to demonstrate an effective cough will improve Outcome: Progressing Goal: Ability to achieve and maintain a regular respiratory rate will improve Outcome: Progressing Goal: Verbalizations of increased ease of respirations will increase Outcome: Progressing Problem: Lack of Knowledge: Goal: Knowledge of the prescribed therapeutic regimen will improve Outcome: Progressing Problem: Activity: Goal: Ability to ambulate will improve Outcome: Progressing Goal: Muscle strength will improve Outcome: Progressing Goal: Range of joint motion will improve Outcome: Progressing Problem: Physical Regulation: Goal: Ability to avoid complications of mobility impairment will improve Outcome: Progressing Problem: Safety: Goal: Ability to safely transfer will improve Outcome: Progressing Problem: Lack of Knowledge: Goal: Ability to develop a pain control plan will improve Outcome: Progressing Goal: Ability to identify pain intensity on a pain scale and rate it consistently will improve Outcome: Progressing Goal: Ability to notify healthcare provider of pain before it becomes unmanageable or unbearable will improve Outcome: Progressing Problem: Medication: Goal: Satisfaction with pain management regimen will improve Outcome: Progressing Problem: Nutrition Description: Altered Nutrition and Hydration Goal: Patient maintains adequate hydration Outcome: Progressing Goal: Patient maintains weight Outcome: Progressing Problem: Sensory: Goal: Ability to identify factors that increase the pain will improve Outcome: Progressing Goal: Pain level will decrease Outcome: Progressing Goals: Clinical Goals for the Shift: pain control, PO intake Summary: Will continue to monitor. * Plan of Care - Erika Lucia RN - 04/17/2021 12:52 AM CDT Problem: Health Behavior: Goal: Understanding of discharge needs will improve Outcome: Progressing Problem: Respiratory: Goal: Ability to maintain a clear airway will improve Outcome: Progressing Goal: Ability to demonstrate an effective cough will improve Outcome: Progressing Goal: Ability to achieve and maintain a regular respiratory rate will improve Outcome: Progressing Goal: Verbalizations of increased ease of respirations will increase Outcome: Progressing Problem: Activity: Goal: Ability to ambulate will improve Outcome: Progressing Goal: Muscle strength will improve Outcome: Progressing Goal: Range of joint motion will improve Outcome: Progressing Problem: Physical Regulation: Goal: Ability to avoid complications of mobility impairment will improve Outcome: Progressing Problem: Safety: Goal: Ability to safely transfer will improve Outcome: Progressing Problem: Lack of Knowledge: Goal: Ability to develop a pain control plan will improve Outcome: Progressing Goal: Ability to identify pain intensity on a pain scale and rate it consistently will improve Outcome: Progressing Goal: Ability to notify healthcare provider of pain before it becomes unmanageable or unbearable will improve Outcome: Progressing Problem: Medication: Goal: Satisfaction with pain management regimen will improve Outcome: Progressing Problem: Sensory: Goal: Ability to identify factors that increase the pain will improve Outcome: Progressing Goal: Pain level will decrease Outcome: Progressing Problem: Nutrition Description: Altered Nutrition and Hydration Goal: Patient maintains adequate hydration Outcome: Progressing Goal: Patient maintains weight Outcome: Progressing Goals: Clinical Goals for the Shift: Pain control , VS, wound care , clear liquids Summary: Pain controlled with current pain regimen. Wound care provided and drain flushed by MD. Tolerating clear liquids. VSS. * Plan of Care - Angie Crespo RN - 04/16/2021 7:56 AM CDT Problem: Health Behavior: Goal: Understanding of discharge needs will improve Outcome: Progressing Problem: Lack of Knowledge: Goal: Ability to understand airway maintenance will improve Outcome: Progressing Problem: Respiratory: Goal: Ability to maintain a clear airway will improve Outcome: Progressing Goal: Ability to demonstrate an effective cough will improve Outcome: Progressing Goal: Ability to achieve and maintain a regular respiratory rate will improve Outcome: Progressing Goal: Verbalizations of increased ease of respirations will increase Outcome: Progressing Problem: Lack of Knowledge: Goal: Knowledge of the prescribed therapeutic regimen will improve Outcome: Progressing Problem: Activity: Goal: Ability to ambulate will improve Outcome: Progressing Goal: Muscle strength will improve Outcome: Progressing Goal: Range of joint motion will improve Outcome: Progressing Problem: Physical Regulation: Goal: Ability to avoid complications of mobility impairment will improve Outcome: Progressing Problem: Safety: Goal: Ability to safely transfer will improve Outcome: Progressing Problem: Medication: Goal: Satisfaction with pain management regimen will improve Outcome: Progressing Problem: Lack of Knowledge: Goal: Ability to develop a pain control plan will improve Outcome: Progressing Goal: Ability to identify pain intensity on a pain scale and rate it consistently will improve Outcome: Progressing Goal: Ability to notify healthcare provider of pain before it becomes unmanageable or unbearable will improve Outcome: Progressing Problem: Nutrition Description: Altered Nutrition and Hydration Goal: Patient maintains adequate hydration Outcome: Progressing Goal: Patient maintains weight Outcome: Progressing Goals: Clinical Goals for the Shift: pain control Summary: Will continue to monitor. * Plan of Care - Erika Lucia RN - 04/16/2021 1:16 AM CDT Problem: Health Behavior: Goal: Understanding of discharge needs will improve Outcome: Progressing Problem: Lack of Knowledge: Goal: Ability to understand airway maintenance will improve Outcome: Progressing Problem: Respiratory: Goal: Ability to maintain a clear airway will improve Outcome: Progressing Goal: Ability to demonstrate an effective cough will improve Outcome: Progressing Goal: Ability to achieve and maintain a regular respiratory rate will improve Outcome: Progressing Goal: Verbalizations of increased ease of respirations will increase Outcome: Progressing Problem: Lack of Knowledge: Goal: Knowledge of the prescribed therapeutic regimen will improve Outcome: Progressing Problem: Activity: Goal: Ability to ambulate will improve Outcome: Progressing Goal: Muscle strength will improve Outcome: Progressing Goal: Range of joint motion will improve Outcome: Progressing Problem: Physical Regulation: Goal: Ability to avoid complications of mobility impairment will improve Outcome: Progressing Problem: Safety: Goal: Ability to safely transfer will improve Outcome: Progressing Problem: Lack of Knowledge: Goal: Ability to develop a pain control plan will improve Outcome: Progressing Goal: Ability to identify pain intensity on a pain scale and rate it consistently will improve Outcome: Progressing Goal: Ability to notify healthcare provider of pain before it becomes unmanageable or unbearable will improve Outcome: Progressing Problem: Medication: Goal: Satisfaction with pain management regimen will improve Outcome: Progressing Problem: Nutrition Description: Altered Nutrition and Hydration Goal: Patient maintains adequate hydration Outcome: Progressing Goal: Patient maintains weight Outcome: Progressing Goals: Clinical Goals for the Shift: Pain management , NPO , VS, Sleep hygene Summary: Partial pain control from current pain regimen.VSS. Restarted tube feed and tolerated at goal. Sleeping for short intervals. * Op Note - Hollis Da Silva DDS - 04/15/2021 4:23 PM CDT Attending surgeon: Dr. Da Silva Anesthesia Type: GA (Sevo/ IV) Preoperative Diagnosis: Carious non-restorable teeth Postoperative Diagnosis: Same as above Procedure: Surgical extraction of teeth #1,3,4,16,17,and 18 EBL: 20cc Plating/Implant System: None Complications: None Specimens: None General anesthesia administered and patient was successfully inducted by Sevo with IV. Non-invasiveblood pressure monitoring was used during the procedure. Patient's arms were secured and tucked in. The patient was prepped intraorally with betadine and draped in standard sterile surgical fashion. Throat pack was placed and 10 cc of 0.5 % Marcaine with 1:200,000 epinephrine was administered via Inferior alveolar nerve block, bilateral V2 blocks, and local infiltration to the surgical sites to allow for superior anesthesia during the case. Final time out procedure was completed to confirm patient identification, and procedure with nursing staff. Attention was directed to the left posterior maxilla. A #15 blade was used to make a sulcular incision around tooth #16. Periosteal elevator used to elevate gingival tissue. Tooth #16 were visualizedand the teeth were delivered atraumatically via standard surgical technique. Surgical site irrigated copiously with normal saline solution. Same technique was used for teeth # 1,3,and 4 Attention To the left posterior mandible. A #15 blade was used to make a sulcular incision around teeth #17,and 18. Periosteal elevator used to elevate gingival tissue. Teeth #17,and 18 were visualized and the teeth were deliveredtraumatically via standard surgical technique. A bone file was used to smoothen the bone margins as well combinations with hand piece to smooth bone. Surgical sites irrigated copiously with normal saline solution. The surgical sites were left open for drainage. Hemostasis was noted at all surgical sites. The oral cavity was irrigated and suctioned clean. Throat pack was removed. Care of the patient was returned to anesthesia. Patient was awakened and transferred to PACU in stable condition. The needle, sponge, and instrument count were complete at the endof the procedure. There were no complications during this surgery. They should follow up in 2 weeks in OMFS clinic. Patient was given post- operative instructions including the avoidance of straws, smoking, spitting, or consumption of alcohol for at least 3 days. Soft diet was recommended for the next 48hrs and can be advanced as tolerated. Rinsing should be avoided for the next 24hrs. Firm pressure should be continued by biting on gauze in the mouth and replacedevery 30-45 minutes until bleeding is noted to have stopped. Cold compressed wrapped in a cloth canbe applied to the face/mouth for 20 minutes on and then 20 minutes off, this is most important for the initial 24hrs to reduce swelling. If any abnormal bleeding, fever, or bad smelling/tasting liquid is noted in the mouth, patient should return to the clinic immediately for re-evaluation. * Plan of Care - Beverly Linares RN - 04/15/2021 1:01 PM CDT Plan of Care Note: Per Medical Chart/Rounds/DCAM: OMFS for teeth extractions today. Currently NPO. Plans to discharge home with family Sunday vs Sunday. Discharge home with home health for SN wound care and possible tube feedings. According to team, if patient is able to take in enough calories and red rubber drain is removed then patient may not need home health. Team notified about updating home health orders before patient is discharged. ADD: Sunday vs Sunday Plan & referrals made/in place: [facility] Home care following for SN wound care and TF. [facility] following for tube feeding supplies and formula Support following discharge: Mother Transportation: Mother F/U Appointment to be arranged prior to discharge. Patient's Identified Problem/Goal: Problem: Ensure acute medical needs are met and that patient has a safe discharge plan. Goal: Secure a discharge plan that patient/family are agreeable with and ensure patient has continuum of care. Patient and/or family are agreeable with plan. Case Manger will continue to follow and assist with discharge planning as needed. If any further discharge needs arise, please contact the covering correctional counselor/case manager. * Plan of Care - Katey Méndez RN - 04/15/2021 9:43 AM CDT Problem: Health Behavior: Goal: Understanding of discharge needs will improve Outcome: Progressing Problem: Lack of Knowledge: Goal: Ability to understand airway maintenance will improve Outcome: Progressing Problem: Respiratory: Goal: Ability to maintain a clear airway will improve Outcome: Progressing Goal: Ability to demonstrate an effective cough will improve Outcome: Progressing Goal: Ability to achieve and maintain a regular respiratory rate will improve Outcome: Progressing Goal: Verbalizations of increased ease of respirations will increase Outcome: Progressing Problem: Lack of Knowledge: Goal: Knowledge of the prescribed therapeutic regimen will improve Outcome: Progressing Problem: Activity: Goal: Ability to ambulate will improve Outcome: Progressing Goal: Muscle strength will improve Outcome: Progressing Goal: Range of joint motion will improve Outcome: Progressing Problem: Physical Regulation: Goal: Ability to avoid complications of mobility impairment will improve Outcome: Progressing Problem: Safety: Goal: Ability to safely transfer will improve Outcome: Progressing Problem: Lack of Knowledge: Goal: Ability to develop a pain control plan will improve Outcome: Progressing Goal: Ability to identify pain intensity on a pain scale and rate it consistently will improve Outcome: Progressing Goal: Ability to notify healthcare provider of pain before it becomes unmanageable or unbearable will improve Outcome: Progressing Problem: Medication: Goal: Satisfaction with pain management regimen will improve Outcome: Progressing Problem: Sensory: Goal: Ability to identify factors that increase the pain will improve Outcome: Progressing Goal: Pain level will decrease Outcome: Progressing Problem: Nutrition Description: Altered Nutrition and Hydration Goal: Patient maintains adequate hydration Outcome: Progressing Goal: Patient maintains weight Outcome: Progressing Goals: Clinical Goals for the Shift: pain control, pt will remain free of falls, NPO Summary: * Plan of Care - Thelma Castillo RN - 04/15/2021 4:02 AM CDT Goals: Clinical Goals for the Shift: Pain control Summary: Problem: Health Behavior: Goal: Understanding of discharge needs will improve Outcome: Progressing Problem: Lack of Knowledge: Goal: Ability to understand airway maintenance will improve Outcome: Progressing Problem: Respiratory: Goal: Ability to maintain a clear airway will improve Outcome: Progressing Goal: Ability to demonstrate an effective cough will improve Outcome: Progressing Goal: Ability to achieve and maintain a regular respiratory rate will improve Outcome: Progressing Goal: Verbalizations of increased ease of respirations will increase Outcome: Progressing Problem: Lack of Knowledge: Goal: Knowledge of the prescribed therapeutic regimen will improve Outcome: Progressing Problem: Activity: Goal: Ability to ambulate will improve Outcome: Progressing Goal: Muscle strength will improve Outcome: Progressing Goal: Range of joint motion will improve Outcome: Progressing Problem: Physical Regulation: Goal: Ability to avoid complications of mobility impairment will improve Outcome: Progressing Problem: Safety: Goal: Ability to safely transfer will improve Outcome: Progressing Problem: Lack of Knowledge: Goal: Ability to develop a pain control plan will improve Outcome: Progressing Goal: Ability to identify pain intensity on a pain scale and rate it consistently will improve Outcome: Progressing Goal: Ability to notify healthcare provider of pain before it becomes unmanageable or unbearable will improve Outcome: Progressing Problem: Medication: Goal: Satisfaction with pain management regimen will improve Outcome: Progressing Problem: Sensory: Goal: Ability to identify factors that increase the pain will improve Outcome: Progressing Goal: Pain level will decrease Outcome: Progressing Problem: Nutrition Description: Altered Nutrition and Hydration Goal: Patient maintains adequate hydration Outcome: Progressing Goal: Patient maintains weight Outcome: Progressing * Plan of Care - Sharif Rizo RN - 04/14/2021 8:21 AM CDT Goals: Clinical Goals for the Shift: Pain control Problem: Health Behavior: Goal: Understanding of discharge needs will improve Outcome: Progressing Problem: Lack of Knowledge: Goal: Ability to understand airway maintenance will improve Outcome: Progressing Problem: Respiratory: Goal: Ability to maintain a clear airway will improve Outcome: Progressing Goal: Ability to demonstrate an effective cough will improve Outcome: Progressing Goal: Ability to achieve and maintain a regular respiratory rate will improve Outcome: Progressing Goal: Verbalizations of increased ease of respirations will increase Outcome: Progressing Problem: Lack of Knowledge: Goal: Knowledge of the prescribed therapeutic regimen will improve Outcome: Progressing Problem: Activity: Goal: Ability to ambulate will improve Outcome: Progressing Goal: Muscle strength will improve Outcome: Progressing Goal: Range of joint motion will improve Outcome: Progressing Problem: Physical Regulation: Goal: Ability to avoid complications of mobility impairment will improve Outcome: Progressing Problem: Safety: Goal: Ability to safely transfer will improve Outcome: Progressing Problem: Lack of Knowledge: Goal: Ability to develop a pain control plan will improve Outcome: Progressing Goal: Ability to identify pain intensity on a pain scale and rate it consistently will improve Outcome: Progressing Goal: Ability to notify healthcare provider of pain before it becomes unmanageable or unbearable will improve Outcome: Progressing Problem: Medication: Goal: Satisfaction with pain management regimen will improve Outcome: Progressing Problem: Sensory: Goal: Ability to identify factors that increase the pain will improve Outcome: Progressing Goal: Pain level will decrease Outcome: Progressing Problem: Nutrition Description: Altered Nutrition and Hydration Goal: Patient maintains adequate hydration Outcome: Progressing Goal: Patient maintains weight Outcome: Progressing Summary: * [place] - Emma Salcedo RN - 04/13/2021 7:48 PM CDT Goals: Clinical Goals for the Shift: Pain control Summary: Problem: Health Behavior: Goal: Understanding of discharge needs will improve Outcome: Progressing Problem: Lack of Knowledge: Goal: Ability to understand airway maintenance will improve Outcome: Progressing Problem: Respiratory: Goal: Ability to maintain a clear airway will improve Outcome: Progressing Problem: Respiratory: Goal: Verbalizations of increased ease of respirations will increase Outcome: Progressing Problem: Lack of Knowledge: Goal: Knowledge of the prescribed therapeutic regimen will improve Outcome: Progressing * Plan of Care - Felicitas Lozada RN - 04/13/2021 9:48 AM CDT Problem: Health Behavior: Goal: Understanding of discharge needs will improve Outcome: Progressing Problem: Lack of Knowledge: Goal: Ability to understand airway maintenance will improve Outcome: Progressing Problem: Respiratory: Goal: Ability to maintain a clear airway will improve Outcome: Progressing Goal: Ability to demonstrate an effective cough will improve Outcome: Progressing Goal: Ability to achieve and maintain a regular respiratory rate will improve Outcome: Progressing Goal: Verbalizations of increased ease of respirations will increase Outcome: Progressing Problem: Lack of Knowledge: Goal: Knowledge of the prescribed therapeutic regimen will improve Outcome: Progressing Problem: Activity: Goal: Ability to ambulate will improve Outcome: Progressing Goal: Muscle strength will improve Outcome: Progressing Goal: Range of joint motion will improve Outcome: Progressing Problem: Physical Regulation: Goal: Ability to avoid complications of mobility impairment will improve Outcome: Progressing Problem: Safety: Goal: Ability to safely transfer will improve Outcome: Progressing Problem: Lack of Knowledge: Goal: Ability to develop a pain control plan will improve Outcome: Progressing Goal: Ability to identify pain intensity on a pain scale and rate it consistently will improve Outcome: Progressing Goal: Ability to notify healthcare provider of pain before it becomes unmanageable or unbearable will improve Outcome: Progressing Problem: Medication: Goal: Satisfaction with pain management regimen will improve Outcome: Progressing Problem: Sensory: Goal: Ability to identify factors that increase the pain will improve Outcome: Progressing Goal: Pain level will decrease Outcome: Progressing Problem: Nutrition Description: Altered Nutrition and Hydration Goal: Patient maintains adequate hydration Outcome: Progressing Goal: Patient maintains weight Outcome: Progressing Goals: Pain control, remain NPO for teeth ext, continue abx Summary: Progressing towards goals. * Plan of Care - Miracle Barnes RN - 04/13/2021 1:35 AM CDT Goals: Clinical Goals for the Shift: pain control Summary: pt progressing toward goal * Plan of Care - Billie Gibson RN - 04/12/2021 12:50 PM CDT Goals: Clinical Goals for the Shift: pain control Summary: Reports control of pain on current pain regimen. UAL in room. TF initiated per order. * Plan of Care - Beverly Linares RN - 04/12/2021 11:15 AM CDT Patient may be going home with tube feedings. Referral sent to [facility] for tube feeding supplies and formula * Plan of Care - Miracle Barnes RN - 04/11/2021 11:05 PM CDT Goals: Pain Control .NPO. No falls Summary: Pt progressing toward goals * Op Note - Angel Lal MD - 04/11/2021 10:34 AM CDT DATE OF SURGERY: 04/11/2021 PREOPERATIVE DIAGNOSIS: Left deep inspector dials space odontogenic abscess POSTOPERATIVE DIAGNOSIS: Same PROCEDURE PERFORMED: Transcervical drainage of left deep neck odontogenic abscess ATTENDING SURGEON: Angel Lal MD TOOLROOM KEEPER SURGEON: Surgeon(s): Angel Lal MD [place], Scott Andrew, MD Roh, Sean Cedillo MD ANESTHESIA: General INDICATIONS FOR SURGERY: Ms. Chatterjee is a 30 y.o. female with a history of poor mandibular dentition of the left molars. She developed a left odontogenic abscess within the pterygoid musculature and significant trismus. We discussed risks and benefits of transcervical incision and drainage followed by dental extraction byoral surgery at a subsequent date. Patient expressed understanding and provided consent. OPERATIVE NOTE: Informed consent was obtained the patient was taken to the operating room where the patient was nasotracheally fiberoptically intubated and anesthesia was administered. Preoperative time out, preoperative antibiotic administration , local anesthetic injection with 1% lidocaine with 1:100,000 epinephrine and prepping and draping were performed. Imaging was again reviewed before making incision. The patient had significant trismus, however we could visualize two very rotten left mandibular molars. A 4 cm horizontal incision was made in a natural skin crease approximately 2 fingerbreadths below the left mandible. The skin was incised and we carefully dissected through the platysma so as not to injure the marginal mandibular nerve branch. We carefully dissected down to the inferior anterior edge of the submandibular gland. We then carefully spread with a Burlisher deep to the mandible in a superior and posterior direction. This opened up into the left floor of mouth just adjacent to the infected mandibular molars. We dissected in a more posterior direction encountering purulence which was cultured. This was finger dissected into the pterygoid musculature. A red rubber catheter was placed and sutured to the skin and the wound was irrigated. The outer skin was closed slightly to leavea 2 cm opening. There was an opening into the left floor of mouth neck could accommodate a finger, however this was adjacent to the teeth that would be extracted shortly and so this was not closed, knowing that this would eventually close on its own. The neck was dressed and the patient was then awakened and taken recovery stable condition. ATTENDING SURGEON ATTESTATION: I was present for the abad portions of this procedure which included the entirety of this procedure except for the final skin closure. There was an overlapping case in which I was involved which was atwo surgeon procedure, however my services were not needed in that case during this procedure. * Brief Op Note - Sean Ward MD - 04/11/2021 10:34 AM CDT Operative Progress Note Surgical Team: Surgeon(s) and Role: * Angel Lal MD - Primary * Sean Ward MD - Resident - Assisting * Bryan Fitzgerald MD - Resident - Assisting Anesthesiologist: Abhay Henry MD Melt House Centrifugal Operator: Kari Pritchard MD Stem Sizer: Khadar Campbell Scrub: Sonia Maya RN [place] Scrub: Jovita Joseph RN DATE OF SURGERY : 04/11/2021 Preoperative Diagnosis: Pre-op Diagnosis * Dental abscess [K04.7] Postoperative Diagnosis: Post-op Diagnosis * Dental abscess [K04.7] Procedure(s): Procedure(s) (LRB): INCISION AND DRAINAGE - ORAL CAVITY (Left) INCISION AND DRAINAGE - NECK (Left) Operative Findings: Neck abscess drained via transcervical approach Estimated Blood Loss: <10cc Intraoperative Fluids: See anesthesia record. Specimens: No specimen collected in procedure Implants: Nothing was implanted during the procedure Blood/Blood Products Transfused: None Complications: None Condition on Discharge from the operating room was stable Davey Ward MD Date: 04/11/2021 Time: 11:00 AM TEACHING ATTESTATION : I was present and directly participated in the entire procedure (including opening and closing). Cosigned by Angel Lal MD at 04/15/2021 4:50 PM CDT * ED Pre-Arrival Note - Ruth Ann Scott RN - 04/10/2021 10:22 PM CDT Pre-Arrival Note 30 F w/ left lower dental pain x1 week, taking penicillin for abscess. Worsening swelling/infection, airway intact. Accepted by Dr. Wolff for further eval in ED by ENT Ruth Ann Scott RN documented in this encounter Plan of Treatment Not on file documented as of this encounter Procedures Procedure Name Priority Date/Time Associated Diagnosis Comments EGFR Routine 04/13/2021 9:46 PM CDT DIFFERENTIAL AUTO Routine 04/13/2021 9:4 6 PM CDT CBC WITH AUTO DIFFERENTIAL Routine 04/13/2021 9:46 PM CDT PHOSPHORUS Routine 04/13/2021 9:46 PM CDT MAGNESIUM Routine 04/13/2021 9:46 PM CDT BASIC METABOLIC PANEL Routine 04/13/2021 9:46 PM CDT EGFR Routine 04/12/2021 10:01 PM CDT DIFFERENTIAL AUTO Routine 04/12/2021 10: 01 PM CDT CBC WITH AUTO DIFFERENTIAL Routine 04/12/2021 10:01 PM CDT PHOSPHORUS Routine 04/12/2021 10:01 PM CDT MAGNESIUM Routine 04/12/2021 10:01 PM CDT BASIC METABOLIC PANEL Routine 04/12/2021 10:01 PM CDT EGFR Routine 04/11/2021 9:59 PM CDT DIFFERENTIAL AUTO Routine 04/11/2021 9:5 9 PM CDT CBC WITH AUTO DIFFERENTIAL Routine 04/11/2021 9:59 PM CDT PHOSPHORUS Routine 04/11/2021 9:59 PM CDT MAGNESIUM Routine 04/11/2021 9:59 PM CDT BASIC METABOLIC PANEL Routine 04/11/2021 9:59 PM CDT XR ABDOMEN AP 1 VIEW ED Urgent/IP Urgent 04/11/2021 11:30 AM CDT AEROBIC AND ANAEROBIC CULTURE AND GRAM STAIN Routine 04/11/2021 10:42 AM CDT INCISION AND DRAINAGE - NECK 04/11/2021 9:53 AM CDT Dental abscess INCISION AND DRAINAGE - ORAL CAVITY 04/11/2021 9:53 AM CDT Dental abscess POCT HCG, URINE Routine 04/11/2021 9:33 AM CDT POC BLOOD GAS AND CHEMISTRIES, ARTERIAL Routine 04/11/2021 9:27 AM CDT POC BLOOD GAS AND CHEMISTRIES, ARTERIAL Routine 04/11/2021 9:03 AM CDT COVID-19 CORONAVIRUS RNA Routine 04/11/2021 7:48 AM CDT documented in this encounter Results * eGFR (04/13/2021 9:46 PM CDT) eGFR >90 90 - 130 mL/min/1.7 3 m2 [facility] Comment: Interpretive Data Reference Interval Normal ?>/= 90 mL/min/1.73m2 Mildly decreased* ? 60 - 89 mL/min/1.73m2 Mildly to moderately decreased ?45 - 59 mL/min/1.73m2 Moderately to severely decreased ??30 - 44 mL/min/1.73m2 Severely decreased ?15 - 29 mL/min/1.73m2 Kidney Failure ?< 15 ??mL/min/1.73m2 *Relative to young adult level Estimated glomerular filtration rate is determined by the CKD-EPI equation recommended by the National Kidney Foundation (KDIGO 2012 Clinical Practice Guideline for the Evaluation and Management of Chronic Kidney Disease. Kidney Intnl Suppl Jul 2012;3:1). The CKD-EPI equation should not be used for patients with unstable renal function and has not been validated in children and those over 70. Current interpretive data was last reviewed 2020 Blood 04/13/2021 9:46 PM CDT 04/13/2021 10:39 PM CDT Angel Lal MD LAB BLOOD ORDERABLES Final Result [facility] Department [place] [address] * Differential, auto (04/13/2021 9:46 PM CDT) Neutrophil abs 4.0 1.7 - 6.5 K/cumm [facility] Imm gran abs 0.0 0.0 - 0.1 K/cumm [facility] Lymphocyte abs 2.3 0.8 - 3.3 K/cumm [facility] Monocyte abs 0.5 0.2 - 0.8 K/cumm [facility] Eosinophil abs 0.1 0.0 - 0.5 K/cumm [facility] Basophil abs 0.0 0.0 - 0.1 K/cumm [facility] Neutrophil pct 58.1 % [facility] Comment: Interpretive Data Percent cell count reference ranges are not reported, since discordance with absolute values may lead to misinterpretation of CBC data. Current Interpretive Data was last revised on 2017. Imm gran pct 0.3 % [facility] Comment: Interpretive Data Percent cell count reference ranges are not reported, since discordance with absolute values may lead to misinterpretation of CBC data. Current Interpretive Data was last revised on 2017. Lymphocyte pct 33.0 % [facility] Comment: Interpretive Data Percent cell count reference ranges are not reported, since discordance with absolute values may lead to misinterpretation of CBC data. Current Interpretive Data was last revised on 2017. Monocyte pct 7.3 % [facility] Comment: Interpretive Data Percent cell count reference ranges are not reported, since discordance with absolute values may lead to misinterpretation of CBC data. Current Interpretive Data was last revised on 2017. Eosinophil pct 1.2 % [facility] Comment: Interpretive Data Percent cell count reference ranges are not reported, since discordance with absolute values may lead to misinterpretation of CBC data. Current Interpretive Data was last revised on 2017. Basophil pct 0.1 % [facility] Comment: Interpretive Data Percent cell count reference ranges are not reported, since discordance with absolute values may lead to misinterpretation of CBC data. Current Interpretive Data was last revised on 2017. Blood 04/13/2021 9:46 PM CDT 04/13/2021 10:39 PM CDT Angel Lal MD LAB BLOOD ORDERABLES Final Result Performing Organization Address City/[facility] Co de Phone Number [facility] [place] [address] * Magnesium (04/13/2021 9:46 PM CDT) Magnesium 1.8 1.4 - 2.5 mg/dL [facility] Blood 04/13/2021 9:46 PM CDT 04/13/2021 10:39 PM CDT Angel Lal MD LAB BLOOD ORDERABLES Final Result Performing Organization Address [facility] Co de Phone Number [facility] Department [place] [address] * Phosphorus (04/13/2021 9:46 PM CDT) Phosphorus, pl 4.1 2.3 - 4.5 mg/dL [facility] Blood 04/13/2021 9:46 PM CDT 04/13/2021 10:39 PM CDT Angel Lal MD LAB BLOOD ORDERABLES Final Result Performing Organization Address City/[facility] Co de Phone Number [facility] Department [place] [address] * Basic metabolic panel (04/13/2021 9:46 PM CDT) Pathologist [facility] Sodium 140 135 - 145 mmol/L [facility] Potassium, pl 4.5 3.3 - 4.9 mmol/L [facility] Chloride 104 97 - 110 mmol/L [facility] CO2 30 22 - 32 mmol/L [facility] Anion gap 6 2 - 15 mmol/L [facility] BUN 8 8 - 25 mg/dL [facility] Creatinine 0.69 0.60 - 1.10 mg/dL [facility] Glucose 113 70 - 199 mg/dL [facility] Comment: Interpretive Data Fasting glucose >/= [...] interpretive data was last revised 2017. Calcium 9.3 8.5 - 10.3 mg/dL [facility] Blood 04/13/2021 9:46 PM CDT 04/13/2021 10:39 PM CDT Angel Lal MD LAB BLOOD ORDERABLES Final Result [facility] Department [place] [address] * CBC with auto differential (04/13/2021 9:46 PM CDT) [facility] WBC 6.9 3.8 - 9.9 K/cumm [facility] Hgb 12.2 11.9 - 15.5 g/dL [facility] Hct 37.2 35.6 - 45.5 % [facility] Plt 156 150 - 400 K/cumm [facility] MPV 10.8 9.1 - 12.3 fL [facility] RBC 4.18 3.90 - 5.20 M/cumm [facility] MCV 89.0 81.3 - 96.4 fL [facility] MCH 29.2 27.1 - 33.3 pg [facility] MCHC 32.8 32.3 - 35.7 g/dL [facility] RDW CV 12.3 11.1 - 14.9 % [facility] RDW SD 40.5 35.7 - 48.1 fL [facility] NRBC abs 0.00 0.00 - 0.01 K/cumm [facility] Blood 04/13/2021 9:46 PM CDT 04/13/2021 10:39 PM CDT us Angel Lal MD LAB BLOOD ORDERABLES Final Result [facility] Department [place] [address] * eGFR (04/12/2021 10:01 PM CDT) eGFR >90 90 - 130 mL/min/1.7 3 m2 [facility] Comment: Interpretive Data Reference Interval Normal ?>/= 90 mL/min/1.73m2 Mildly decreased* ? 60 - 89 mL/min/1.73m2 Mildly to moderately decreased ?45 - 59 mL/min/1.73m2 Moderately to severely decreased ??30 - 44 mL/min/1.73m2 Severely decreased ?15 - 29 mL/min/1.73m2 Kidney Failure ?< 15 ??mL/min/1.73m2 *Relative to young adult level Estimated glomerular filtration rate is determined by the CKD-EPI equation recommended by the National Kidney Foundation (KDIGO 2012 Clinical Practice Guideline for the Evaluation and Management of Chronic Kidney Disease. Kidney Intnl Suppl Jul 2012;3:1). The CKD-EPI equation should not be used for patients with unstable renal function and has not been validated in children and those over 70. Current interpretive data was last reviewed 2020 Blood 04/12/2021 10:0 1 PM CDT 04/12/2021 10:33 PM CDT us Angel Lal MD LAB BLOOD ORDERABLES Final Result [facility] Department [place] [address] * (ABNORMAL) Differential, auto (04/12/2021 10:01 PM CDT) Neutrophil abs 7.4(H) 1.7 - 6.5 K/cumm [facility] Imm gran abs 0.1 0.0 - 0.1 K/cumm [facility] Lymphocyte abs 3.0 0.8 - 3.3 K/cumm [facility] Monocyte abs 0.5 0.2 - 0.8 K/cumm [facility] Eosinophil abs 0.1 0.0 - 0.5 K/cumm [facility] Basophil abs 0.0 0.0 - 0.1 K/cumm [facility] Neutrophil pct 66.5 % [facility] Comment: Interpretive Data Percent cell count reference ranges are not reported, since discordance with absolute values may lead to misinterpretation of CBC data. Current Interpretive Data was last revised on 2017. Imm gran pct 0.5 % [facility] Comment: Interpretive Data Percent cell count reference ranges are not reported, since discordance with absolute values may lead to misinterpretation of CBC data. Current Interpretive Data was last revised on 2017. Lymphocyte pct 27.4 % [facility] Comment: Interpretive Data Percent cell count reference ranges are not reported, since discordance with absolute values may lead to misinterpretation of CBC data. Current Interpretive Data was last revised on 2017. Monocyte pct 4.9 % [facility] Comment: Interpretive Data Percent cell count reference ranges are not reported, since discordance with absolute values may lead to misinterpretation of CBC data. Current Interpretive Data was last revised on 2017. Eosinophil pct 0.5 % [facility] Comment: Interpretive Data Percent cell count reference ranges are not reported, since discordance with absolute values may lead to misinterpretation of CBC data. Current Interpretive Data was last revised on 2017. Basophil pct 0.2 % [facility] Comment: Interpretive Data Percent cell count reference ranges are not reported, since discordance with absolute values may lead to misinterpretation of CBC data. Current Interpretive Data was last revised on 2017. Blood 04/12/2021 10:0 1 PM CDT 04/12/2021 10:34 PM CDT Angel Lal MD LAB BLOOD ORDERABLES Final Result Performing Organization Address [facility] Co de Phone Number [facility] Department [place] [address] * Magnesium (04/12/2021 10:01 PM CDT) Magnesium 1.7 1.4 - 2.5 mg/dL [facility] Blood 04/12/2021 10:0 1 PM CDT 04/12/2021 10:33 PM CDT Result [facility] Angel Lal MD LAB BLOOD ORDERABLES Final Result Performing Organization Address City/[facility] Co de Phone Number [facility] [place] [address] * Phosphorus (04/12/2021 10:01 PM CDT) Phosphorus, pl 2.3 2.3 - 4.5 mg/dL [facility] Blood 04/12/2021 10:0 1 PM CDT 04/12/2021 10:33 PM CDT Angel Lal MD LAB BLOOD ORDERABLES Final Result [facility] Department [place] [address] * (ABNORMAL) Basic metabolic panel (04/12/2021 10:01 PM CDT) Sodium 138 135 - 145 mmol/L [facility] Potassium, pl 3.8 3.3 - 4.9 mmol/L [facility] Chloride 100 97 - 110 mmol/L [facility] CO2 28 22 - 32 mmol/L [facility] Anion gap 10 2 - 15 mmol/L [facility] BUN 7(L) 8 - 25 mg/dL [facility] Creatinine 0.72 0.60 - 1.10 mg/dL [facility] Glucose 142 70 - 199 mg/dL [facility] Comment: Interpretive Data Fasting glucose >/= [...] interpretive data was last revised 2017. Calcium 9.0 8.5 - 10.3 mg/dL [facility] Blood 04/12/2021 10:0 1 PM CDT 04/12/2021 10:33 PM CDT us Angel Lal MD LAB BLOOD ORDERABLES Final Result [facility] Department [place] [address] * (ABNORMAL) CBC with auto differential (04/12/2021 10:01 PM CDT) WBC 11.1(H) 3.8 - 9.9 K/cumm [facility] Hgb 12.8 11.9 - 15.5 g/dL [facility] Hct 37.5 35.6 - 45.5 % [facility] Plt 158 150 - 400 K/cumm [facility] MPV 10.7 9.1 - 12.3 fL [facility] RBC 4.28 3.90 - 5.20 M/cumm [facility] MCV 87.6 81.3 - 96.4 fL [facility] MCH 29.9 27.1 - 33.3 pg [facility] MCHC 34.1 32.3 - 35.7 g/dL [facility] RDW CV 12.6 11.1 - 14.9 % [facility] RDW SD 40.3 35.7 - 48.1 fL [facility] NRBC abs 0.00 0.00 - 0.01 K/cumm [facility] Blood 04/12/2021 10:0 1 PM CDT 04/12/2021 10:34 PM CDT Angel Lal MD LAB BLOOD ORDERABLES Final Result [facility] Department [place] [address] * eGFR (04/11/2021 9:59 PM CDT) eGFR >90 90 - 130 mL/min/1.7 3 m2 [facility] Comment: Interpretive Data Reference Interval Normal ?>/= 90 mL/min/1.73m2 Mildly decreased* ? 60 - 89 mL/min/1.73m2 Mildly to moderately decreased ?45 - 59 mL/min/1.73m2 Moderately to severely decreased ??30 - 44 mL/min/1.73m2 Severely decreased ?15 - 29 mL/min/1.73m2 Kidney Failure ?< 15 ??mL/min/1.73m2 *Relative to young adult level Estimated glomerular filtration rate is determined by the CKD-EPI equation recommended by the National Kidney Foundation (KDIGO 2012 Clinical Practice Guideline for the Evaluation and Management of Chronic Kidney Disease. Kidney Intnl Suppl Jul 2012;3:1). The CKD-EPI equation should not be used for patients with unstable renal function and has not been validated in children and those over 70. Current interpretive data was last reviewed 2020 Blood 04/11/2021 9:59 PM CDT 04/11/2021 10:38 PM CDT us Angel Lal MD LAB BLOOD ORDERABLES Final Result [facility] Department [place] [address] * (ABNORMAL) Differential, auto (04/11/2021 9:59 PM CDT) Neutrophil abs 12.6(H) 1.7 - 6.5 K/cumm [facility] Imm gran abs 0.1 0.0 - 0.1 K/cumm [facility] Lymphocyte abs 0.5(L) 0.8 - 3.3 K/cumm [facility] Monocyte abs 0.6 0.2 - 0.8 K/cumm [facility] Eosinophil abs 0.0 0.0 - 0.5 K/cumm [facility] Basophil abs 0.0 0.0 - 0.1 K/cumm [facility] Neutrophil pct 91.9 % [facility] Comment: Interpretive Data Percent cell count reference ranges are not reported, since discordance with absolute values may lead to misinterpretation of CBC data. Current Interpretive Data was last revised on 2017. Imm gran pct 0.4 % [facility] Comment: Interpretive Data Percent cell count reference ranges are not reported, since discordance with absolute values may lead to misinterpretation of CBC data. Current Interpretive Data was last revised on 2017. Lymphocyte pct 3.3 % [facility] Comment: Interpretive Data Percent cell count reference ranges are not reported, since discordance with absolute values may lead to misinterpretation of CBC data. Current Interpretive Data was last revised on 2017. Monocyte pct 4.3 % [facility] Comment: Interpretive Data Percent cell count reference ranges are not reported, since discordance with absolute values may lead to misinterpretation of CBC data. Current Interpretive Data was last revised on 2017. Eosinophil pct 0.0 % [facility] Comment: Interpretive Data Percent cell count reference ranges are not reported, since discordance with absolute values may lead to misinterpretation of CBC data. Current Interpretive Data was last revised on 2017. Basophil pct 0.1 % [facility] Comment: Interpretive Data Percent cell count reference ranges are not reported, since discordance with absolute values may lead to misinterpretation of CBC data. Current Interpretive Data was last revised on 2017. Blood 04/11/2021 9:59 PM CDT 04/11/2021 10:36 PM CDT Angel Lal MD LAB BLOOD ORDERABLES Final Result [facility] [place] [address] * Magnesium (04/11/2021 9:59 PM CDT) Magnesium 1.7 1.4 - 2.5 mg/dL [facility] Blood 04/11/2021 9:59 PM CDT 04/11/2021 10:38 PM CDT Angel Lal MD LAB BLOOD ORDERABLES Final Result [facility] [place] [address] * Phosphorus (04/11/2021 9:59 PM CDT) Phosphorus, pl 3.7 2.3 - 4.5 mg/dL [facility] Blood 04/11/2021 9:59 PM CDT 04/11/2021 10:38 PM CDT Angel Lal MD LAB BLOOD ORDERABLES Final Result Performing Organization Address City/[facility]/ZIP Co de Phone Number [facility] Department [place] [address] * Basic metabolic panel (04/11/2021 9:59 PM CDT) [facility] Sodium 137 135 - 145 mmol/L [facility] Potassium, pl 3.8 3.3 - 4.9 mmol/L [facility] Chloride 100 97 - 110 mmol/L [facility] CO2 27 22 - 32 mmol/L [facility] Anion gap 10 2 - 15 mmol/L [facility] BUN 9 8 - 25 mg/dL [facility] Creatinine 0.70 0.60 - 1.10 mg/dL [facility] Glucose 146 70 - 199 mg/dL [facility] Comment: Interpretive Data Fasting glucose >/= [...] interpretive data was last revised 2017. Calcium 9.3 8.5 - 10.3 mg/dL [facility] Blood 04/11/2021 9:59 PM CDT 04/11/2021 10:38 PM CDT Angel Lal MD LAB BLOOD ORDERABLES Final Result Performing Organization Address [facility] Co de Phone Number [facility] Department [place] [address] * (ABNORMAL) CBC with auto differential (04/11/2021 9:59 PM CDT) WBC 13.7(H) 3.8 - 9.9 K/cumm [facility] Hgb 12.9 11.9 - 15.5 g/dL [facility] Hct 38.5 35.6 - 45.5 % [facility] Plt 156 150 - 400 K/cumm [facility] MPV 11.0 9.1 - 12.3 fL [facility] RBC 4.39 3.90 - 5.20 M/cumm [facility] MCV 87.7 81.3 - 96.4 fL [facility] MCH 29.4 27.1 - 33.3 pg [facility] MCHC 33.5 32.3 - 35.7 g/dL [facility] RDW CV 12.6 11.1 - 14.9 % [facility] RDW SD 40.5 35.7 - 48.1 fL [facility] NRBC abs 0.00 0.00 - 0.01 K/cumm [facility] Blood 04/11/2021 9:59 PM CDT 04/11/2021 10:36 PM CDT us Angel Lal MD LAB BLOOD ORDERABLES Final Result [facility] Department [place] [address] * XR Abdomen Ap 1 Vw (04/11/2021 11:30 AM CDT) Anatomical Region Laterality Modality Body, Abdomen N/A Computed Radiogr aphy 04/11/2021 11:4 1 AM CDT Impressions 04/11/2021 1:29 PM CDT A single view of the abdomen is submitted for evaluation. An enteric tube is present with the tip at the gastric fundus. ??The stylet remains in place. Normal bowel gas pattern. Dictated by: Tone Rodrigues MD The radiology attending physician has personally reviewed this study, and had reviewed and/or edited this written report and agrees with it. Electronically signed by: Andrés Pandya M.D. Narrative 04/11/2021 1:29 PM CDT EXAMINATION: Abdomen, one view. HISTORY: Check tube placement. COMPARISON: None Procedure Note Andrés Pandya MD - 04/11/2021 EXAMINATION: Abdomen, one view. HISTORY: Check tube placement. COMPARISON: None IMPRESSION: A single view of the abdomen is submitted for evaluation. An enteric tube is present with the tip at the gastric fundus. The stylet remains in place. Normal bowel gas pattern. Dictated by: Tone Rodrigues MD The radiology attending physician has personally reviewed this study, and had reviewed and/or edited this written report and agrees with it. Electronically signed by: Andrés Pandya M.D. Angel Lal MD IMG XR PROCEDURES Final Res ult * (ABNORMAL) Aerobic and anaerobic culture and gram stain Abscess Neck, left (04/11/2021 10:42 AM CDT) Direct Specimen Exam Stain: Abundant polymorphonuclear leukocytes seen. Abundant Gram Positive Cocci Moderate Gram Positive Bacilli [facility] Report Final Report: Moderate Mixed upper respiratory tract microorganisms. (.) [facility] Organism MIXED UPPER RESPIRATORY TRACT MICROORGANISMS. [facility] Abscess (Neck, left) 04/11/2021 10:42 AM CDT 04/11/2021 12:23 PM CDT Narrative [facility] - 04/14/2021 2:36 PM CDT Testing performed by [facility] ([phone]) Specimens submitted from normally sterile body sites will have all bacterial morphotypes identified. Specimens that contain grossly mixed dior and/or are from body sites that are not normally sterile will be examined for Staphylococcus aureus, Pseudomonas aeruginosa, beta-hemolytic strep, vancomycin-resistant Enterococcus, Bacteroides, Parabacteroides, Clostridium perfringens and fungus. If any of these are isolated, the organism will be reported. Current interpretive data was last revised on 2019. Angel Lal MD LAB MICROBIOLOGY - GENERAL ORDERABLES Final Result [facility] Department [place] [address] * POCT hCG, urine (04/11/2021 9:33 AM CDT) [facility] HCG, ur, POC Negative Lot Number [id number] QC Backgroud Clear Acceptable QC Control Line Acceptable Urine 04/11/2021 9:33 AM CDT aKri Pritchard MD POINT OF CARE TEST O RDERABLES Final Result * POC Blood Gas and Chemistries, Arterial - (04/11/2021 9:27 AM CDT) [facility] POC 3.5 3.3 - 4.9 mmol/L [facility] Comment: Interpretive Data Unable to assess hemolysis. ??Invitro hemolysis causes falsely elevated potassium. Current Interpretive Data was last revised on 2020. Blood 04/11/2021 9:27 AM CDT 04/11/2021 9:27 AM CDT Angel Lal MD LAB POCT ORDERABLES - DEVIC E Final Result [facility] Department [place] [address] * (ABNORMAL) POC Blood Gas and Chemistries, Arterial - (04/11/2021 9:03 AM CDT) [facility] POC 9.2(C) 3.3 - 4.9 mmol/L [facility] Comment: Interpretive Data Unable to assess hemolysis. ??Invitro hemolysis causes falsely elevated potassium. Current Interpretive Data was last revised on 2020. Hct, POC 41.0 36.3 - 45.3 % [facility] Total Hb, POC 13.5 11.9 - 15.5 g/dL [facility] Blood 04/11/2021 9:03 AM CDT 04/11/2021 9:03 AM CDT Angel Lal MD LAB POCT ORDERABLES - DEVIC E Final Result Performing Organization Address [facility] Co de Phone Number [facility] Department [place] [address] * COVID-19 Coronavirus RNA Nasopharyngeal (04/11/2021 7:48 AM CDT) COVID-19 RNA Negative Negative [facility] Comment: Interpretive data: Synonyms for this test include: PCR and NAAT . ??This test is performed using the [employer] Xpert Xpress assay. This is a real-time RT-PCR test intended for the qualitative detection of nucleic acid from the SARS-CoV-2. This assay has been reviewed by the FDA for Emergency Use Authorization (EUA). The performance characteristics have been verified by the performing laboratory. Results must be considered in the clinical context and a negative result does not rule out infection. Interpretive data last revised August 19, 2020. Employeed in healthcare? No [facility] status? No [facility] Group care resident? No [facility] Hospitalized? No [facility] Is patient in ICU? No [facility] Symptomatic as defined by CDC? No [facility] Nasopharyngeal 04/11/2021 7: 48 AM CDT 04/11/2021 7:56 AM CDT Narrative [facility] - 04/11/2021 8:51 AM CDT What is the reason for testing?->Screening prior to urgent surgery, procedure, BMT, immunosuppressive therapy Hiro Taylor MD LAB MICROBIOLOGY - GENE RAL ORDERABLES Final Result Performing Organization Address [facility]/ZIP Co de Phone Number [facility] Department [place] [address] documented in this encounter Visit Diagnoses Diagnosis Dental abscess- Primary Periapical abscess without sinus Dental abscess Periapical abscess without sinus Abscess Cellulitis and abscess of unspecified site Abscess of inspector dials space of mouth Dental abscess Periapical abscess without sinus documented in this encounter Administered Medications Inactive Administered Medications - up to 3 most recent administrations Medication Order MAR Action Action Date Dose Rate Site acetaminophen (TYLENOL) 32 mg/mL oral solution 650 mg 650 mg, feeding tube, Every 4 hours PRN, 1st line for pain, fever, Starting on Sun04/11/21 at 1318, Administer if patient receiving meds per tube., Indications: Fever, PainIndications:Fever,Pain Given 04/19/2021 10:10 AM CDT 650 mg Given 04/19/2021 6:20 AM CDT 650 mg Given 04/19/2021 2:09 AM CDT 650 mg acetaminophen (TYLENOL) suppository 650 mg 650 mg, rectal, Every 4 hours PRN, 1st line for pain, fever, Starting on Sun04/11/21 at 1318, Administer if patient cannot tolerate enteral route., Indications: Fever, PainIndications:Fever,Pain acetaminophen (TYLENOL) tablet 650 mg 650 mg, oral, Every 4 hours PRN, 1st line for pain, fever, Starting on Sun04/11/21 at 1318, Administer if patient can swallow tablets., Indications: Fever, PainIndications:Fever,Pain Given 04/15/2021 2:24 PM CDT 650 mg Given 04/15/2021 8:07 AM CDT 650 mg Given 04/13/2021 5:12 PM CDT 650 mg ampicillin-sulbactam (UNASYN) 3 g/110 mL in sodium chloride 0.9% (premix) 3 g 3 g, intravenous, Administer over 30 Minutes, Every 6 hours scheduled, First dose on Sun04/11/21 at 1400, Indications: Upper Respiratory/HEENT InfectionIndications:Upper Respiratory/HEENT Infection New Bag 04/19/2021 10:10 AM CDT 3 g New Bag 04/19/2021 4:38 AM CDT 3 g New Bag 04/18/2021 9:21 PM CDT 3 g chlorhexidine (PERIDEX) 0.12 % solution 15 mL 15 mL, mouth/throat, 4 times daily, First dose on Sun04/11/21 at 1400, Please Educate Patient on Oral Care using Peridex. Thank you!, Indications: Mouth Infection PreventionIndications:Mouth Infection Prevention Given 04/19/2021 1:06 PM CDT 15 mL Given 04/19/2021 8:15 AM CDT 15 mL Given 04/18/2021 9:21 PM CDT 15 mL dexAMETHasone (DECADRON) 4 mg/mL injection 8 mg 8 mg, intravenous, Administer over 2 Minutes, Every 8 hours scheduled, First dose on Esther 04/14/21 at 1400 Given 04/19/2021 5:00 AM CDT 8 mg Given 04/18/2021 9:21 PM CDT 8 mg Given 04/18/2021 1:49 PM CDT 8 mg dextrose 5% and sodium chloride 0.45% infusion (premix) 100 mL/hr, intravenous, Continuous, Starting on Sun04/11/21 at 1400 New Bag 04/12/2021 5:54 PM CDT 100 mL/hr 100 mL/hr New Bag 04/12/2021 5:45 AM CDT 100 mL/hr 100 mL/hr New Bag 04/11/2021 4:39 PM CDT 100 mL/hr 100 mL/hr heparin 5,000 unit/mL injection 5,000 Units 5,000 Units, subcutaneous, Every 8 hours scheduled, First dose on Sun04/11/21 at 1400, Indications: Deep Vein Thrombosis PreventionIndications:Deep Vein Thrombosis Prevention Given 04/18/2021 1:49 PM CDT 5,000 Units Left Lower Abdomen Given 04/18/2021 5:07 AM CDT 5,000 Units R ight Upper Abdomen Given 04/17/2021 8:53 PM CDT 5,000 Units L eft Upper Abdomen hydrocortisone 2.5 % cream topical, 2 times daily PRN, irritation, Starting on Sun04/12/21 at 2326, Apply to affected area: neck Given 04/13/2021 2:19 AM CDT HYDROmorphone (DILAUDID) injection 0.2 mg 0.2 mg, intravenous, Administer over 2 Minutes, Every 4 hours PRN, breakthrough pain, Starting on Sun04/13/21 at 1357 Given 04/19/2021 4:38 AM CDT 0.2 mg Given 04/16/2021 11:39 PM CDT 0.2 mg Given 04/16/2021 11:34 AM CDT 0.2 mg Lactated Ringer's (LR) infusion 30 mL/hr, intravenous, Continuous, Starting on Sun04/11/21 at 1000, Pre-Op New Bag 04/11/2021 9:54 AM CDT lidocaine-EPINEPHrine (XYLOCAINE with EPI) 1 %-1:200,000 preservative free injection As needed, Starting on Sun04/11/21 at 1024, Intra-Op, Indications: Administration of Local AnesthesiaIndications:Administrati on of Local Anesthesia Given 04/11/2021 10:24 AM CDT 6 mL Surgical Site ondansetron (ZOFRAN) injection 4 mg 4 mg, intravenous, Administer over 2 Minutes, Every 6 hours PRN, nausea, vomiting, if not tolerating PO, Starting on Sun04/11/21 at 1318, Indications: Nausea and VomitingIndications:Nausea and Vomiting ondansetron ODT (ZOFRAN-ODT) disintegrating tablet 4 mg 4 mg, oral, Every 6 hours PRN, nausea, vomiting, Starting on Sun04/11/21 at 1318, Indications: Nausea and VomitingIndications:Nausea and Vomiting oxyCODONE (ROXICODONE) 1 mg/mL oral solution 5 mg 5 mg, feeding tube, Every 4 hours PRN, 2nd line for pain, Starting on Sun04/11/21 at 1942, Indications: PainIndications:Pain Given 04/19/2021 10:10 AM CDT 5 mg Given 04/19/2021 6:20 AM CDT 5 mg Given 04/19/2021 2:09 AM CDT 5 mg sodium chloride 0.9% flush 0.5-20 mL 0.5-20 mL, intra-catheter, Every 8 hours scheduled, First dose on Sun04/11/21 at 1400, Flush volume based on line type and size. Given 04/19/2021 5:00 AM CDT 10 mL Given 04/18/2021 9:22 PM CDT 10 mL Given 04/18/2021 1:49 PM CDT 10 mL sodium chloride 0.9% flush 0.5-20 mL 0.5-20 mL, intra-catheter, As needed, line care, Starting on Sun04/11/21 at 1318, Flush volume based on line type and size. Flush before and after each use. Given 04/15/2021 10:41 AM CDT 10 mL sodium chloride 0.9% irrigation As needed, Starting on Sun04/11/21 at 1036, Intra-Op Given 04/11/2021 10:36 AM CDT 1,000 mL Surgical Site documented in this encounter Discontinued Medications Medication Sig Discontinue Reason Start Date End Da te chlorhexidine (PERIDEX) 0.12 % solutionIndications:[facility] Infection Prevention Apply 15 mL to the mouth or throat 4 (four) times a day for 14 days 04/19/2021 04/19/2021 oxyCODONE (ROXICODONE) 5 mg immediate release tabletIndications:Pain Take 1 tablet (5 mg total) by mouth every 4 (four) hours as needed for pain Stop Taking at Discharge 04/19/2021 04/19/2021 documented as of this encounter Active and Recently Administered Medications Times are shown in CDT. Scheduled Medication Order 04/17/2021 04/18/2021 04/19/2021 ampicillin-sulbactam (UNASYN) 3 g/110 mL in sodium chloride 0.9% (premix) 3 g 3 g, intravenous, Administer over 30 Minutes, Every 6 hours scheduled, First dose on Sun04/11/21 at 1400, Indications: Upper Respiratory/HEENT Infection 0450 (New Bag - Provider: Erika Lucia RN)0955 (New Bag - Provider: Angie Crespo RN)1524 (New Bag - Provider: Angie Crespo, JOHNNY)2053 (New Bag - Provider: Erika Lucia RN) 0506 (New Bag - Provider: Erika Lucia RN)1038 (New Bag - Provider: Katey Méndez, JOHNNY)1652 (New Bag - Provider: Katey Méndez, JOHNNY)2121 (New Bag - Provider: Dionne Torres, JOHNNY) 0438 (New Bag - Provider: Dionne Torres, JOHNNY)1010 (New Bag - Provider: Katey Méndez, JOHNNY) chlorhexidine (PERIDEX) 0.12 % solution 15 mL 15 mL, mouth/throat, 4 times daily, First dose on Sun04/11/21 at 1400, Please Educate Patient on Oral Care using Peridex. Thank you!, Indications: Mouth Infection Prevention 0800 (Given - Provider: Angie Crespo, JOHNNY)1200 (Given - Provider: Angie Crespo, JOHNNY)1644 (Given - Provider: Angie Crespo, JOHNNY)2053 (Given - Provider: Erika Lucia RN) 0902 (Given - Provider: Katey Méndez, JOHNNY)1349 (Given - Provider: Katey Méndez, RN)1652 (Given - Provider: Katey Méndez RN)2121 (Given - Provider: Dionne Torres, JOHNNY) 0815 (Given - Provider: Katey Méndez, RN)1306 (Given - Provider: Katey Méndez, RN) dexAMETHasone (DECADRON) 4 mg/mL injection 8 mg 8 mg, intravenous, Administer over 2 Minutes, Every 8 hours scheduled, First dose on Sun04/14/21 at 1400 0544 (Given - Provider: Erika Lucia RN)1330 (Given - Provider: Angie Crespo, JOHNNY)205 (Given - Provider: Erika Lucia RN) 0507 (Given - Provider: Erika Lucia RN)134 (Given - Provider: Katey Méndez RN)212 (Given - Provider: Dionne Torres RN) 0500 (Given - Provider: Dionne Torres RN)1400 (Due) heparin 5,000 unit/mL injection 5,000 Units 5,000 Units, subcutaneous, Every 8 hours scheduled, First dose on Sun04/11/21 at 1400, Indications: Deep Vein Thrombosis Prevention 0544 (Given - Provider: Erika Lucia RN)1330 (Given - Provider: Angie Crespo, JOHNNY)205 (Given - Provider: Erika Lucia RN) 0507 (Given - Provider: Erika Lucia RN)1349 (Given - Provider: Katey Méndez RN)212 (Not Given - Provider: Dionne Torres RN - Reason: Patient/family refused) 0500 (Not Given - Provider: Dionne Torres RN - Reason: Patient/family refused)1400 (Due) sodium chloride 0.9% flush 0.5-20 mL 0.5-20 mL, intra-catheter, Every 8 hours scheduled, First dose on Sun04/11/21 at 1400, Flush volume based on line type and size. 0545 (Given - Provider: Erika Lucia RN)1331 (Given - Provider: Angie Crespo RN)2053 (Given - Provider: Erika Lucia RN) 0507 (Given - Provider: Erika Lucia RN)1349 (Given - Provider: Katey Méndez, JOHNNY)2122 (Given - Provider: Dionne Torres, RN) 0500 (Given - Provider: Dionne Torres, RN)1400 (Due) Continuous Medication Order 04/17/2021 04/18/2021 04/19/2021 dextrose 5% and sodium chloride 0.45% infusion (premix) 100 mL/hr, intravenous, Continuous, Starting on Sun04/11/21 at 1400 Lactated Ringer's (LR) infusion 30 mL/hr, intravenous, Continuous, Starting on Sun04/11/21 at 1000, Pre-Op PRN Medication Order 04/17/2021 04/18/2021 04/19/2021 acetaminophen (TYLENOL) 32 mg/mL oral solution 650 mg(Linked Group 1) 650 mg, feeding tube, Every 4 hours PRN, 1st line for pain, fever, Starting on Sun04/11/21 at 1318, Administer if patient receiving meds per tube., Indications: Fever, Pain 0450 (Given - Provider: Erika Lucia RN)0955 (Given - Provider: Angie Crespo RN)1523 (Given - Provider: Angie Crespo, JOHNNY)1937 (Given - Provider: Erika Lucia RN) 0506 (Given - Provider: Erika Lucia RN)0902 (Given - Provider: Katey Méndez, JOHNNY)1652 (Given - Provider: Katey Méndez, JOHNNY) 0209 (Given - Provider: Dionne Torres, RN)0620 (Given - Provider: Dionne Torres, RN)1010 (Given - Provider: Katey Méndez, JOHNNY) acetaminophen (TYLENOL) suppository 650 mg(Linked Group 1) 650 mg, rectal, Every 4 hours PRN, 1st line for pain, fever, Starting on Sun04/11/21 at 1318, Administer if patient cannot tolerate enteral route., Indications: Fever, Pain 0450 (See Alternative - Provider: Erika Lucia RN)0955 (See Alternative - Provider: Angie Crespo RN)1523 (See Alternative - Provider: Angie Crespo RN)1937 (See Alternative - Provider: Erika Lucia RN) 0506 (See Alternative - Provider: Erika Lucia RN)0902 (See Alternative - Provider: Katey Méndez RN)1652 (See Alternative - Provider: Katey Méndez RN) 0209 (See Alternative - Provider: Dionne Torres RN)0620 (See Alternative - Provider: Dionne Torres RN)1010 (See Alternative - Provider: Katey Méndez RN) acetaminophen (TYLENOL) tablet 650 mg(Linked Group 1) 650 mg, oral, Every 4 hours PRN, 1st line for pain, fever, Starting on Sun04/11/21 at 1318, Administer if patient can swallow tablets., Indications: Fever, Pain 0450 (See Alternative - Provider: Erika Lucia RN)0955 (See Alternative - Provider: Angie Crespo RN)1523 (See Alternative - Provider: Angie Crespo RN)1937 (See Alternative - Provider: Erika Lucia RN) 0506 (See Alternative - Provider: Erika Lucia RN)0902 (See Alternative - Provider: Katey Méndez RN)1652 (See Alternative - Provider: Katey Méndez RN) 0209 (See Alternative - Provider: Dionne Torers RN)0620 (See Alternative - Provider: Dionne Torres RN)1010 (See Alternative - Provider: Katey Méndez RN) hydrocortisone 2.5 % cream topical, 2 times daily PRN, irritation, Starting on Sun04/12/21 at 2326, Apply to affected area: neck HYDROmorphone (DILAUDID) injection 0.2 mg 0.2 mg, intravenous, Administer over 2 Minutes, Every 4 hours PRN, breakthrough pain, Starting on Sun04/13/21 at 1357 0438 (Given - Provider: Dionne Torres RN) influenza quadrivalent [id number] (FLULAVAL,FLUARIX,FLUZON E) 60 mcg (15 mcg x 4)/0.5 mL vaccine (STANDARD age 6 months and up) 0.5 mL (COMPLETED) 0.5 mL, intramuscular, During hospitalization, immunization, Starting on Sun04/15/21 at 0544, For 1 dose, Indications: influenza vaccination 1307 (Given - Provider: Katey Méndez, JOHNNY) ondansetron (ZOFRAN) injection 4 mg(Linked Group 2) 4 mg, intravenous, Administer over 2 Minutes, Every 6 hours PRN, nausea, vomiting, if not tolerating PO, Starting on Sun04/11/21 at 1318, Indications: Nausea and Vomiting ondansetron ODT (ZOFRAN-ODT) disintegrating tablet 4 mg(Linked Group 2) 4 mg, oral, Every 6 hours PRN, nausea, vomiting, Starting on Sun04/11/21 at 1318, Indications: Nausea and Vomiting oxyCODONE (ROXICODONE) 1 mg/mL oral solution 5 mg 5 mg, feeding tube, Every 4 hours PRN, 2nd line for pain, Starting on Sun04/11/21 at 1942, Indications: Pain 0450 (Given - Provider: Erika Lucia RN)0955 (Given - Provider: Angie Crespo, JOHNNY)1523 (Given - Provider: Angie Crespo, JOHNNY)1937 (Given - Provider: Erika Lucia RN) 0506 (Given - Provider: Erika Lucia RN)0902 (Given - Provider: Katey Méndez, JOHNNY)1657 (Given - Provider: Katey Méndez, JOHNNY)2306 (Given - Provider: Dionne Torres, JOHNNY) 0209 (Given - Provider: Dionne Torres, JOHNNY)0620 (Given - Provider: Dionne Torres, RN)1010 (Given - Provider: Katey Méndez, JOHNNY) sodium chloride 0.9% flush 0.5-20 mL 0.5-20 mL, intra-catheter, As needed, line care, Starting on Sun04/11/21 at 1318, Flush volume based on line type and size. Flush before and after each use. Linked Groups Order Group 1: acetaminophen (TYLENOL) tablet 650 mgJump to med 650 mg, oral, Every 4 hours PRN, 1st line for pain, fever, Starting on Sun04/11/21 at 1318, Administer if patient can swallow tablets., Indications: Fever, Pain Or acetaminophen (TYLENOL) 32 mg/mL oral solution 650 mgJump to med 650 mg, feeding tube, Every 4 hours PRN, 1st line for pain, fever, Starting on Sun04/11/21 at 1318, Administer if patient receiving meds per tube., Indications: Fever, Pain Or acetaminophen (TYLENOL) suppository 650 mgJump to med 650 mg, rectal, Every 4 hours PRN, 1st line for pain, fever, Starting on Sun04/11/21 at 1318, Administer if patient cannot tolerate enteral route., Indications: Fever, Pain Group 2: ondansetron ODT (ZOFRAN-ODT) disintegrating tablet 4 mgJump to med 4 mg, oral, Every 6 hours PRN, nausea, vomiting, Starting on Sun04/11/21 at 1318, Indications: Nausea and Vomiting Or ondansetron (ZOFRAN) injection 4 mgJump to med 4 mg, intravenous, Administer over 2 Minutes, Every 6 hours PRN, nausea, vomiting, if not tolerating PO, Starting on Sun04/11/21 at 1318, Indications: Nausea and Vomiting documented in this encounter Orders Medications Ordered That Juan ht Not Have Been Administered Count Last Ordered Date First Ordered Date HYDROmorphone (DILAUDID) injection 0.5 mg 2 04/15/2021 04/11/2021 influenza quadrivalent 2020- 2021 (FLULAVAL,FLUARIX,FLUZONE) 60 mcg (15 mcg x 4)/0.5 mL vaccine (STANDARD age 6 months and up) 0.5 mL 1 04/15/2021 ketorolac (TORADOL) injection 30 mg 1 04/15 dexAMETHasone (DECADRON) 4 m g/mL injection 8 mg 1 04/14/2021 HYDROmorphone (DILAUDID) injection 0.2 mg 2 04/13/2021 04/11/2021 hydrocortisone 2.5 % cream 1 04/12/2021 acetaminophen (TYLENOL) 32 m g/mL oral solution 650 mg 1 04/11/2021 acetaminophen (TYLENOL) suppository 650 mg 1 04/11/2021 acetaminophen (TYLENOL) tablet 1,000 mg 1 0 04/11/2021 acetaminophen (TYLENOL) tablet 650 mg 1 ampicillin-sulbactam (UNASYN ) 3 g/110 mL in sodium chloride 0.9% (premix) 3 g 2 04/11/2021 chlorhexidine (PERIDEX) 0.12 % solution 15 mL 1 04/11/2021 dextrose 5% and sodium chlor [place] 0.45% infusion (premix) 1 04/11/2021 enoxaparin (LOVENOX) syringe 40 mg 1 2020 heparin 5,000 unit/mL inject ion 5,000 Units 1 04/11/2021 HYDROmorphone (DILAUDID) injection 0.4 mg 1 04/11/2021 Lactated Ringer's (LR) infusion 1 morphine injection 4 mg 1 04/11/2021 naloxone (NARCAN) 0.4 mg/mL injection 0.04-0.4 mg 1 04/11/2021 ondansetron (ZOFRAN) injection 4 mg 2 04/11 ondansetron ODT (ZOFRAN-ODT) disintegrating tablet 4 mg 1 04/11/2021 oxyCODONE (ROXICODONE) 1 mg/ mL oral solution 5 mg 1 04/11/2021 prochlorperazine (COMPAZINE) injection 10 mg 1 04/11/2021 sodium chloride 0.9% flush 0.5-20 mL 3 03/17 Lab Orders Without Results Count Last Ordered D ate First Ordered Date POCT [id number],WB - ISTAT 1 04/11/20 21 Nursing Count Last Ordered Date First Orde red Date NURSING COMMUNICATION 1 04/11/2021 Consult Count Last Ordered Date First Orde red Date IP CONSULT TO ENT 1 04/11/2021 IP CONSULT TO NUTRITION SERVICES 1 04/11/20 21 Case Request Count Last Ordered Date First Orde red Date CASE REQUEST OPERATING ROOM 1 04/11/2021 ADT Patient Update Count Last Ordered Date Firs t Ordered Date ED IP DECISION TO ADMIT 1 04/11/2021 documented in this encounter Additional Health Concerns Infection Onset Date Last Indicated Resolved Time COVID: Recovered Comment:Pt tested COVID+ 01/31/21. Pt has been afebrile off antipyretics >24hrs. Results in care everywhere. Kristal David 04/11/2021 02/10/2021 04/11/2021 06/03/2021 3:0 5 AM [employer] documented as of this encounter Care Teams Machine Set Up Technician Relationship Specialty Start Date End Date No, Physician PCP - General 12/03/17 01/03/23 documented as of this encounter
--- OUTSIDE RECORDS SUMMARY | 2024-07-28 06:40 | XMS_ITS | Encounter Summary ---
Author Organization [facility] Healthcare Address [address] [place] [address] Care Team Providers Care Shear Operator Automatic Name Role Phone No, Physician Primary Care Provider Reason for Visit * Reason Comments Contractions c/o contrs since 150 0 06/09/2018; denies LOF, VB or sexual intercourse; +FM Encounter Details Date Type Department Care Team (Latest Contact Info) Description 06/10/2018 3:22 AM PIG STICKER - 06/12/2018 7:40 PM PIG STICKER Hospital Encounter [address] [address] Jennifer Sesay MD [address] [place] [address] Beverly Richard MD [address] [phone] [place] [address] Labor and delivery, indication for care (Primary Dx) Discharge Disposition: Discharge to home or self care Social History Tobacco Use Types Packs/Day Years Used Date Smoking Tobacco: Never Smokeless Tobacco: Never Alcohol Use Standard Drinks/Week Comments No 0 (1 standard drink = 0.6 oz pur e alcohol) Comments No Sex and Gender Information Value Date Recorded Sex Assigned at Not on file Legal Sex Female 1:19 AM PIG STICKER Gender Identity Not on file Sexual Orientation Not on file documented as of this encounter Last Filed Vital Signs Vital Sign Reading Time Taken Comments Blood Pressure 131/70 06/12/2018 7:27 AM PIG STICKER Pulse 80 06/12/2018 7:27 AM PIG STICKER Temperature 36.8 ??C (98.2 ??F) 06/12/2018 7:27 AM CS T Respiratory Rate 16 06/12/2018 7:27 AM PIG STICKER Oxygen Saturation 100% 06/12/2018 7:27 AM PIG STICKER Inhaled Oxygen Concentration - - Weight 86.2 kg (190 lb) 06/10/2018 3:54 AM PIG STICKER Height 165.1 cm (5' 5 ) 06/10/2018 3:54 AM PIG STICKER Body Mass Index 31.62 06/10/2018 3:54 AM PIG STICKER documented in this encounter Discharge Summaries * Kenna Bermudez NP - 06/12/2018 10:24 AM CST Inpatient Discharge Summary Admitting Provider: Jennifer Sesay MD Discharge Provider: Beverly Richard MD Admission Date: 06/10/2018 Discharge Date: 06/12/2018 Primary Discharge Diagnosis: Intrauterine at 39w2d, delivered Secondary Discharge Diagnosis: Medical Conditions Diagnosis ??? 38 weeks gestation of ??? History of gHTN with prior ??? History of marijuana use ??? 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 Marginal insertion of umbilical cord affecting management of mother ??? Vaginal candidiasis ??? Iron deficiency anemia ??? Labor and delivery, indication for care ??? Spontaneous vaginal delivery Procedures Performed: Vaginal delivery Other Treatments: Magnesium sulfate therapy: No Blood transfusion: No Hospital Course: Nguyen Chatterjee is a 27 y.o. who presented with an intrauterine at 39.2 weeks estimated gestational age with uterine contractions. 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 Her labor was augmented with pitocin and artificial rupture of membranes. Delivery was complicated by complicated by chorioamnionitis for which she recieved ampicillin/gentamicin x1 dose prior to delivery, cord was clamped immediately without delay for handoff topediatrics. See delivery record for full details. The patient was transferred to . Her course was uncomplicated. Prior to discharge, her pain was well controlled, she was voiding, passing gas, ambulating, and meeting all post milestones. # ID: The patient became febrile to 100.4 prior to delivery, diagnosed with chorioamnionitis and given Amp and Gent. She has been afebrile for her entire course and displayed no signs of infection; no evidence of DEISY. # CV/Pulm: The patient has a history of gestational hypertension, Her blood pressures remained normotensive on no medications. She had one severe range blood pressure on presentation to L&D that resolved on recheck and her PIH labs were within normal limits. The patient remained asymptomatic, denied BOLAÑOS/RUQ pain/vision changes throughout admission. Her blood pressures were monitored and she did not require spotting or initiation of an antihypertensive regimen. #Mother/Baby: The patient has chosen to formula feed her infant and has chosen IUD, deferred to 6 week post- visit due to chorioamnionitis at time of delivery, for contraception. Discharge Details Physical Exam at Discharge: Discharge Condition: Stable Pulse: 80 Resp: 16 BP: 131/70 Temp: 98.2 ??F Weight: 190 lb (86.2 kg) See full physical exam from progress note on day of discharge. Lab Results Component Value Date HCT 30.6 (L) 06/10/2018 ABORH B Positive 06/10/2018 RUBELIGG Positive (A) 12/03/2017 [] Iron prescribed on discharge [] Post Rhogam given [] Post MMR given Immunization History Administered Date(s) Administered ??? Influenza, Trivalent, Preservative Free, Intramuscular 04/23/2013 ??? PPD TEST 05/22/2007 ??? Tdap 04/23/2013 Discharge Medications: Your medication list START taking these medications acetaminophen 500 mg capsule Take 1 capsule (500 mg total) by mouth every 6 (six) hours as needed for pain. docusate sodium 100 mg capsule Commonly known as: COLACE Take 1 capsule (100 mg total) by mouth 2 (two) times a day. ibuprofen 600 mg tablet Commonly known as: ADVIL,MOTRIN Take 1 tablet (600 mg total) by mouth every 6 (six) hours as needed for pain. polyethylene glycol 17 gram packet Commonly known as: MIRALAX Take 1 packet (17 g total) by mouth daily for 14 days. CONTINUE taking these medications ferrous sulfate 325 mg (65 mg of elemental iron) tablet Take 1 tablet (325 mg total) by mouth 2 (two) times a day. VITAMIN PLUS LOW IRON 27 mg iron- 1 mg tablet Generic drug: PNV with [id number] STOP taking these medications aspirin 81 mg chewable tablet metroNIDAZOLE 500 mg tablet Commonly known as: FLAGYL ondansetron ODT 8 mg disintegrating tablet Commonly known as: ZOFRAN-ODT No future appointments. Cosigned by Beverly Richard MD at 06/12/2018 12:48 PM PIG STICKER STICKER STICKER documented in this encounter Discharge Instructions * Discharge Instructions* Kenna Bermudez NP - 06/12/2018 8:56 AM PIG STICKER Discharge Instructions - Vaginal Delivery Call Your Doctor If: * You have a fever of 100.4 degrees or higher. * You have vaginal bleeding more than your normal menstrual period. * You are passing large blood clots (larger than an egg). * You have a strong foul odor coming from your vagina. * You have burning, pain or difficulty urinating. * You have pain or swelling in your vagina or vulva that gets worse or does not get better. * You have nausea, vomiting or increased abdominal pain. * You have redness or pain in your calves, legs or inner thighs. * You have red, swollen painful breasts. * You have other questions or concerns * You have a headache, difficulty breathing, pain in your upper abdomen, or changes in your vision. * You have decreased urine output. * Your level of consciousness changes. * If you have a blood pressure cuff at home, check your blood pressure once a day and write it down. Call your doctor if your blood pressure is greater than 160 (top number) or 110 (bottom number). Diet: * Follow your regular diet. * Maintain liquid intake of 8 -10 glasses per day. * For constipation - drink prune juice or take stool softener medication ordered by your doctor. Eat foods with fiber (examples - raisins, prunes, washed raw vegetables, whole wheat bread, and bran). Activity: * Do not put anything in your vagina for 6 weeks. NO douching, tampons or sexual intercourse. * Weakness and fatigue are common. * Limit activities and visitors and increase as energy levels return. Rest as often as possible. * No driving while taking narcotics. * If you are not , milk will come in between the 3rd and 4th day . Wear tight support bra and use ice packs to relieve breast discomfort. Care Instructions: * You may shower and shampoo hair as desired. * You may take a tub bath 2 weeks after delivery. * For perineal discomfort sit in warm shallow water for 15-20 minutes. Do this 3-4 times a day. Anystitches you have will dissolve in about 2 weeks. Continue to use chanelle bottle for the next 5-7 days. Contraception: DESIRES IUD: The intrauterine device (IUD) can be placed 4 to 6 weeks after delivery. Make an appointment to have it placed with your doctor. You can get within 2 weeks of giving , though we recommend no sexual intercourse for at least 6 weeks. Consider using a different method of control while you are waiting for your IUD. Feeding: Formula Feeding: Feed your baby based on baby's hunger cues. Your baby will eat about every three to four hours during the day. Babies usually eat on demand (when they wake up at night). Your baby will take1-3 ounces at each feeding, and this will increase as the baby grows. Formula contains all the water and nutrition your baby needs. Do NOT supplement (water, juice, cereal) unless instructed byPediatrician. Call your Rubber Trimmer if your baby has poor eating habits (examples: feedings decrease, no feedings in 6 hours, or infant spits up more than ?? of their feeding for 2 consecutive feedings). Once your baby is 5-6 days old you should expect at least 5 wet diapers and 3 soiled diapers per day. [facility] - [facility] - [address] [place] [address] Call to schedule an appointment to be seen in 6 weeks. Discharge Medications: Take the following medications. Your medication list START taking these medications acetaminophen 500 mg capsule Take 1 capsule (500 mg total) by mouth every 6 (six) hours as needed for pain. docusate sodium 100 mg capsule Commonly known as: COLACE Take 1 capsule (100 mg total) by mouth 2 (two) times a day. ibuprofen 600 mg tablet Commonly known as: ADVIL,MOTRIN Take 1 tablet (600 mg total) by mouth every 6 (six) hours as needed for pain. polyethylene glycol 17 gram packet Commonly known as: MIRALAX Take 1 packet (17 g total) by mouth daily for 14 days. CONTINUE taking these medications ferrous sulfate 325 mg (65 mg of elemental iron) tablet Take 1 tablet (325 mg total) by mouth 2 (two) times a day. VITAMIN PLUS LOW IRON 27 mg iron- 1 mg tablet Generic drug: PNV with sedogxr-vlfv-HC STOP taking these medications aspirin 81 mg chewable tablet metroNIDAZOLE 500 mg tablet Commonly known as: FLAGYL ondansetron ODT 8 mg disintegrating tablet Commonly known as: ZOFRAN-ODT STICKER documented in this encounter Medications at Time of Discharge docusate sodium (COLACE) 100 mg capsuleIndication s:constipation,St ool Softener Take 1 capsule (100 mg total) by mouth 2 (two) times a day. 60 capsule 06/12/2018 07/12/2018 polyethylene glycol (MIRALAX) 17 gram packetIndications :constipation Take 1 packet (17 g total) by mouth daily for 14 days. 14 packet 06/12/2018 06/26/2018 acetaminophen 500 mg capsuleIndication s:Fever,Pain Take 1 capsule (500 mg total) by mouth every 6 (six) hours as needed for pain. 60 tablet 06/12/2018 05/19/2021 ferrous sulfate 325 mg (65 mg of elemental iron) tabletIndications :Iron deficiency anemia, unspecified iron deficiency anemia type Take 1 tablet (325 mg total) by mouth 2 (two) times a day. 60 tablet 5 05/22/2018 05/19/2021 ibuprofen (ADVIL,MOTRIN) 600 mg tabletIndications :Cramps,Pain Take 1 tablet (600 mg total) by mouth every 6 (six) hours as needed for pain. 60 tablet 06/12/2018 05/19/2021 PNV with [id number]-KL ( VITAMIN PLUS LOW IRON) 27 mg iron- 1 mg tablet Take 1 tablet by mouth daily. 12/03/2017 05/19/2021 documented as of this encounter Ordered Prescriptions Prescription Sig Dispense Quantity Refills Last Filled Start Date End Date acetaminophen 500 mg capsuleIndications :Fever,Pain Take 1 capsule (500 mg total) by mouth every 6 (six) hours as needed for pain. 60 tablet 06/12/2018 1 ibuprofen (ADVIL,MOTRIN) 600 mg tabletIndications: Cramps,Pain Take 1 tablet (600 mg total) by mouth every 6 (six) hours as needed for pain. 60 tablet 06/12/2018 1 polyethylene glycol (MIRALAX) 17 gram packetIndications: constipation Take 1 packet (17 g total) by mouth daily for 14 days. 14 packet 06/12/2018 8 docusate sodium (COLACE) 100 mg capsuleIndications :constipation,Stoo l Softener Take 1 capsule (100 mg total) by mouth 2 (two) times a day. 60 capsule 06/12/2018 8 documented in this encounter Discharge Disposition Disposition Code Departure Means Destination Discharge to home or self care documented in this encounter Progress Notes * Kenna Bermudez NP - 06/12/2018 8:56 AM CST Post Progress Note Delivery Date/Time: 06/10/2018 at 6:09 PM Delivery method: Vaginal, Spontaneous Delivery [250] Obstetrical/Medical Problems: Medical Conditions Diagnosis ??? 38 weeks gestation of ??? History of gHTN with prior ??? History of marijuana use ??? 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 Marginal insertion of umbilical cord affecting management of mother ??? Vaginal candidiasis ??? Iron deficiency anemia ??? Labor and delivery, indication for care ??? Spontaneous vaginal delivery Subjective No acute events overnight. Patient feels well without complaints. [x] Pain Well Controlled [x] Passing Flatus [x] Tolerating Regular Diet [x] Voiding Spontaneously [x] Lochia = Menses [x] Ambulating Independently Scheduled Medications aspirin 81 mg oral Daily docusate sodium 100 mg oral BID ferrous sulfate 65 mg of elemental iron oral BID PNV with ljsivqt-rdqr-WV 1 tablet oral Daily polyethylene glycol 17 g oral Daily PRN Medications ??? acetaminophen ??? aluminum-magnesium hydroxide-simethicone ??? benzocaine-menthol ??? hydrocortisone ??? ibuprofen ??? szjiysr-ounol-ezdjimz ??? ondansetron ODT OR ondansetron ??? ondansetron ODT ??? sodium chloride 0.9% Vitals: Temp: [97.5 ??F-98.4 ??F] 98.2 ??F Pulse: [73-81] 80 Resp: [16] 16 BP: (118-131)/(68-72) 131/70 Intake/Output Summary (Last 24 hours) at 06/12/18 0857 Last data filed at 06/11/18 1430 Gross per 24 hour Intake 0 ml Output 600 ml Net -600 ml Physical Exam General: No acute distress. Cardiovascular: Regular rate and rhythm. Lungs: Non-labored. Clear to auscultation bilaterally. Abdomen: Soft, non-distended, appropriately tender to palpation. Fundus below umbilicus. Extremities: Warm and well-perfused. Neuro: Globally intact Recent Labs Lab Units 06/10/18 0813 06/10/18 0620 WBC K/cumm -- 9.6 HEMOGLOBIN g/dL -- 9.6* HEMATOCRIT % -- 30.6* PLATELETS K/cumm -- 111* CREATININE mg/dL 0.92 -- AST Units/L 24 -- ALT Units/L 14 -- GLUCOSE mg/dL 76 -- Labs: Lab Results Component Value Date ABORH B Positive 06/10/2018 IDCOOMB Negative 06/10/2018 [id number] Nonreactive 05/21/2018 LABRPR Nonreactive 05/21/2018 RUBELIGG Positive (A) 12/03/2017 HEPBSAG Nonreactive 12/03/2017 GBS neg 06/10/2018 VZVIGG Positive (A) 12/03/2017 Assessment and Plan 27 y.o. PPD#2 s/p Spontaneous Vaginal Delivery ?? # ID: Afebrile overnight. No signs/symptoms of infection. S/p antibiotic treatment for chorio; no e/o DEISY. # Heme: EBL 300 mL. No symptoms acute blood loss anemia. History of iron deficiency anemia. Hgb 9.6on delivery. Iron bid. # CV/Pulm: Gestational hypertension - Blood pressures normotensive controlled on no medications. Asymptomatic, denies BOLAÑOS/RUQ pain/vision changes. 1 severe range blood pressure on presentation to L&D but PIH labs within normal limits. # GI/: Tolerating PO. Voiding spontaneously. # Pain: Controlled with above regimen. # DVT prophylaxis: Ambulating independently. # MOC: Patient unable to have IUD placed post-placental secondary to chorioamnionitis. Will be for IUD placement at 6 weeks . # MOF: Plans to formula feed # Disposition: Discharge home today with follow up in 6 weeks. Pelvic rest. # History of MJ use: +UDS in November, negative since. SW involved. Kenna Bermudez NP 06/12/18 Cosigned by Beverly Richard MD at 06/12/2018 12:48 PM PIG STICKER STICKER STICKER Associated attestation - Beverly Richard MD - 06/12/2018 12:48 PM PIG STICKER -d/c home * Kari Ambrose LCSW - 06/11/2018 1:34 PM CST 06/11/18 1323 Referral Data Referral Source Physician Referral Reason TRAINING AND DEVELOPMENT OFFICER SW Patient Information Primary Caregiver Self Support System Parent;Family members Prior Level of Functioning Living Arrangement House Income Information Income Source Employed Reason for Admission Admitted on 06/10/18 for labor and delivery. Social Work referral for hx of MJ use this . Medical History OB-TOP DYEING MACHINE LOADER care has been with [facility]. Pediatric follow-up will be scheduled. Transportation is not a barrier to future medical care. Medicaid Transportation services also reviewed as a potential resource. Medical insurance coverage is through [facility] Medicaid. Information Baby girl was born on 06[birth year] at 39.2 weeks of estimated gestational age and has been named Jose M. Delivery was vaginally and was admitted to [facility] due to antibiotics. weighed 7lbs 5.8oz with scores of 7 / 9. [place] will be bottle fed. Social History Current address is [address] [place] [address] where Nguyen Chatterjee 1990 lives with her 4 children ranging in age from to 12 yrs. For future contact [phone] is the best phone number. Income source for the household is from wages at a longterm in [place]. Car seat and pack n play are still being gathered. Diapers has been identified as an ongoing need. Family has been a positive support and will be providing ongoing support. Mental Health History MOB states that she has been irritable during this but family has been supportive and provided space when I needed it . Social Work and sfepzg-vw-vwiw discussed the signs and symptoms of depression. Social Work discussed and normalized increase in emotions and the importance of self- care. Social Work encouraged new mom to take time for herself and discussed sleep hygiene. Warning signs including social withdrawal and decreased interest in the discussed and MOB encouraged to seek medical and mental health treatment if symptoms persist. Resources for counseling discussed and MOB encouraged to contact if needed. MOB engaged in conversation and demonstrates knowledge. Substance Use History Marijuana was used during for increasing appetite and to treat symptoms of nausea. The benefits of a smoke-free environment for the were discussed to reduce the exposure to second hand smoke. Lock Tender Chief Operator discussed the health benefits for including reducing the risk of SIDS and respiratory infections. Marijuana was last used on during the first trimester. UDS negative upon this admission and 06/03/18 and 12/03/17. Maternal urine drug screen is negative. [place] urine drug screen is negative. Meconium results are pending. Strengths MOB reports her family is involved and supportive. MOB receptive to SW conversation and engaged. Barriers to Discharge Transportation and discharge medication have been arranged. Resources Provided Car seat and pack n play resources discussed. Safe Discharge Plan Mother bonding well with . Preparations have been made at home for and social supports are available. Follow-up medical care has been arranged. Family is connected to resources and will utilize services as needed. There are no concerns for a safe discharge for with family. Social Work will follow for support and additional needs should they arise. MARCOS Thapa, PIPE BENDER Women and Infants Lock Tender Chief Operator [facility] STICKER * Sharmaine Peralta MD - 06/11/2018 6:05 AM CST Post Progress Note Delivery Date/Time: 06/10/2018 at 6:09 PM Delivery method: Vaginal, Spontaneous Delivery [250] Obstetrical/Medical Problems: Medical Conditions Diagnosis ??? 38 weeks gestation of ??? History of gHTN with prior ??? History of marijuana use ??? 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 Marginal insertion of umbilical cord affecting management of mother ??? Vaginal candidiasis ??? Iron deficiency anemia ??? Labor and delivery, indication for care ??? Spontaneous vaginal delivery Subjective No acute events overnight. Patient feels well without complaints. States that she passed a couple of clots but that she is only changing her pad every 3 hours and believes that the bleeding is slowing. Otherwise no complaints. [x] Pain Well Controlled [x] Passing Flatus [x] Tolerating Regular Diet [x] Voiding Spontaneously [] Lochia < Menses [x] Ambulating Independently Scheduled Medications acetaminophen 1,000 mg oral Q6H aspirin 81 mg oral Daily docusate sodium 100 mg oral BID ferrous sulfate 65 mg of elemental iron oral BID PNV with whepjqm-gnck-XP 1 tablet oral Daily polyethylene glycol 17 g oral Daily PRN Medications aluminum-magnesium hydroxide-simethicone ??? benzocaine-menthol ??? hydrocortisone ??? ibuprofen ??? qxusddn-rikqt-mdatkll ??? ondansetron ODT OR ondansetron ??? ondansetron ODT ??? sodium chloride 0.9% Vitals: Temp: [98.1 ??F-100.4 ??F] 98.1 ??F Pulse: [67-118] 74 Resp: [16-18] 16 BP: (93-137)/(54-88) 126/87 Intake/Output Summary (Last 24 hours) at 06/11/18 0639 Last data filed at 06/11/18 0400 Gross per 24 hour Intake 2062.61 ml Output 3100 ml Net -1037.39 ml Physical Exam General: No acute distress. Cardiovascular: Regular rate and rhythm. Lungs: Non-labored. Clear to auscultation bilaterally. Abdomen: Soft, non-distended, appropriately tender to palpation. Fundus below umbilicus. Extremities: Warm and well-perfused. Neuro: Globally intact Recent Labs Lab Units 06/10/18 0813 06/10/18 0620 WBC K/cumm -- 9.6 HEMOGLOBIN g/dL -- 9.6* HEMATOCRIT % -- 30.6* PLATELETS K/cumm -- 111* CREATININE mg/dL 0.92 -- AST Units/L 24 -- ALT Units/L 14 -- GLUCOSE mg/dL 76 -- Labs: Lab Results Component Value Date ABORH B Positive 06/10/2018 IDCOOMB Negative 06/10/2018 [id number] Nonreactive 05/21/2018 LABRPR Nonreactive 05/21/2018 RUBELIGG Positive (A) 12/03/2017 HEPBSAG Nonreactive 12/03/2017 GBS neg 06/10/2018 VZVIGG Positive (A) 12/03/2017 Assessment and Plan 27 y.o. PPD#1 s/p Problem Spontaneous Vaginal Delivery # ID: Afebrile overnight. No signs/symptoms of infection. Febrile to 100.4 prior to delivery, diagnosed with chorioamnionitis s/p Amp and Gent. Afebrile since. # Heme: EBL 300 mL. No symptoms acute blood loss anemia. History of iron deficiency anemia. Hgb 9.6on delivery. Iron bid. # CV/Pulm: Gestational hypertension [...] in November, negative since. SW to see. Sharmaine Peralta MD 06/11/18 I have reviewed the above note and agree with the documentation. Ayaka Modi MD Cosigned by Beverly Richard MD at 06/11/2018 9:18 AM PIG STICKER STICKER STICKER STICKER Associated attestation - Beverly Richard MD - 06/11/2018 9:18 AM PIG STICKER I have seen and examined the patient and agree with the assessment and plan. -Routine PP care * Megan English MD - 06/10/2018 5:53 PM CST R3 OB Patient with SVE 8.5/80/-1 @ 1708, thick lip at R aspect and anterior aspect of cervix. No cervix on left. Pt now with T100.4F and shaking chills. FHR baseline 165. Mod variability, occ. variable and late decels Start ampicillin/gentamicin for chorioamnionitis. Cat II, mod variability. Ctm closely Megan English MD STICKER * Yovany Huang MD - 06/10/2018 1:29 PM CST Labor Progress Note 27 y.o. at 39w2d by 2nd T US Comfortable and no headache, vision changes, SOB, or RUQ pain. Pain well controlled. The patient threw up twice immediately after taking zofran, however, she was able to tolerate jello and has had nonausea since. BP 109/63 Pulse 83 Temp 98.2 ??F (Oral) Resp 18 Ht 165.1 cm (5' 5 ) Wt 190 lb (86.2 kg) LMP 09/06/2017 Comment: EDC by LMP SpO2 100% BMI 31.62 kg/m?? Monitoring: Baseline: 140-145 bpm, Variability: Moderate, Accelerations: Present and Decelerations: Occasional Variable decelerations Uterine Activity: Contractions present, q4 minutes Physical Exam General: NAD, mood appropriate Cardiovascular: Regular rate and rhythm Pulmonary: non-labored Abdomen: Gravid, non-tender Extremities: Warm and well perfused. Cervix: 6 /80 /-1 Assessment and Plan 27 y.o. at 39w2d Problem Labor and Delivery, Indication for Care 1. Labor: Active labor. Making cervical change. Cont OT per protocol, currently at 14. AROM@1330. 2. FWB: Continuous monitoring. Reactive NST. 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 FHM Category II, overall reassuring due to [...] prophylaxis plan is SCDs and early ambulation Yovany Huang PGY1 (TRAINING AND DEVELOPMENT OFFICER) [phone]\ STICKER * Tawio Xie - 06/10/2018 10:28 AM CST Labor Progress Note 27 y.o. at 39w2d by 2nd T US Comfortable and no headache, vision changes, SOB, or RUQ pain. No pain. Patient complains of nauseaand is interested in medication. BP 109/63 Pulse 83 Temp 97.7 ??F (Oral) Resp 18 Ht 165.1 cm (5' 5 ) Wt 190 lb (86.2 kg) LMP 09/06/2017 Comment: EDC by LMP SpO2 100% BMI 31.62 kg/m?? Pulse: [67-101] BP: (109-137)/(56-88) Monitoring: Baseline: 135 bpm, Variability: Moderate, Accelerations: Present and Decelerations: None Uterine Activity: Contractions present, q8-10 minutes Physical Exam General: NAD, mood appropriate Cardiovascular: Regular rate and rhythm Pulmonary: non-labored, CTAB. Abdomen: Gravid, non-tender Extremities: Warm and well perfused. Cervix: 4.5 /75 /-2 Assessment and Plan 27 y.o. at 39w2d Problem Labor and Delivery, Indication for Care 1. Labor: Latent labor. Making slow cervical change. Arnett score 7, with history of prior vaginal deliveries. Cont OT per protocol, currently at 4. 2. FWB: Continuous monitoring. Reactive NST. 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 3. GI: Has experienced nausea with prior pregnancies, with symptoms now. Interested in medication if she begins to feel an urge to vomit, Zofran PRN ordered. 4. ID: HIV negative. GBS negative. Membrane [...] prophylaxis plan is SCDs and early ambulation Sharmaine Peralta MD 06/10/1811:04 AM STICKER * Emilie Guillen, RN - 06/10/2018 10:23 AM CST 06/10/18 1023 Referral Data Referral Source Control Clerk Auditing Referral Reason Discharge Planning Patient Information Primary Caregiver Self Support System Family members;Parent Prior Level of Functioning Durable Medical Equipment None Living Arrangement House Skin Integrity Intact Behavior Oriented Income Information Income Source Employed Referral To Financial Resources Medicaid Potential Discharge Needs Dialysis No Psychiatric services No Communications Important Message from Medicare notice given to patient? Not Applicable [place]ACH letter given? Not Applicable Patient choice (Home Health/Hospice) list given to patient/auto claim representative? Not Applicable [facility] Facility list given to patient/auto claim representative? Not Applicable Fiduciary Responsibility Patient/Designated decision maker was informed of [facility] fiduciary relationship as necessary Patient is expecting a girl is planning to bottle feed STICKER * Emilie Guillen RN - 06/10/2018 10:17 AM CST 06/10/18 1016 Referral Data Referral Source Control Clerk Auditing Referral Reason Discharge Planning Patient Information Primary Caregiver Self Support System Parent Prior Level of Functioning Durable Medical Equipment None Living Arrangement House;Lives with someone Skin Integrity Intact Behavior Oriented Income Information Income Source Employed Referral To Financial Resources Medicaid Potential Discharge Needs Dialysis No Psychiatric services No Communications Important Message from Medicare notice given to patient? Not Applicable BEACH letter given? Not Applicable Patient choice (Home Health/Hospice) list given to patient/auto claim representative? Not Applicable [facility] Facility list given to patient/auto claim representative? Not Applicable Fiduciary Responsibility Patient/Designated decision maker was informed of [facility] fiduciary relationship as necessary Patient is expecting a girl, is planning to bottle feed. She states that she has a car seat, baby clothes ,and diapers. 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 Gee of [facility]. GROS * Yovany Huang MD - 06/10/2018 9:51 AM CST R1 Labor Note Contractions q10 min. Patient amenable and interested in speeding labor. Comfortable s/p epidural. BP 109/63 Pulse 83 Temp 97.7 ??F (Oral) Resp 18 Ht 165.1 cm (5' 5 ) Wt 190 lb (86.2 kg) LMP 09/06/2017 Comment: EDC by LMP SpO2 100% BMI 31.62 kg/m?? EFM: 135/mod/+ accels/no decels -- cat I Started OT. Yovany Huang PGY1 (TRAINING AND DEVELOPMENT OFFICER) [phone] STICKER * Yovany Huang MD - 06/10/2018 8:34 AM CST Labor Progress Note 27 y.o. at 39w2d by 2nd trimester US Comfortable. S/p epidural with improvement in ctx pain. BP 110/56 Pulse 78 Temp 97.7 ??F (Oral) Resp 18 Ht 165.1 cm (5' 5 ) Wt 190 lb (86.2 kg) LMP 09/06/2017 Comment: EDC by LMP SpO2 99% BMI 31.62 kg/m?? Temp: [97.7 ??F-98.6 ??F] Pulse: [75-110] Resp: [16-18] BP: (103-146)/(56-88) Weight: [190 lb (86.2 kg)] Monitoring: Baseline: 140-145 bpm, Variability: Moderate, Accelerations: Present and Decelerations: None Uterine Activity: Contractions present, q4-5 minutes Physical Exam General: NAD, mood appropriate Cardiovascular: Regular rate and rhythm Pulmonary: non-labored Abdomen: Gravid, non-tender Extremities: Warm and well perfused. Cervix: 3.5 /75 /-3 Assessment and Plan 27 y.o. at 39w2d with gHTN in prior , US findings of nasal hypoplasia and borderline NT s/p negative NIPT, MJ use, marginal cord insertion, iron deficiency anemia Problem Labor and Delivery, Indication for Care 1. Labor: Latent labor. Makin slow cervical change. Arnett score 7, with history of prior vaginal deliveries. Cont OT per protocol. 2. FWB: Continuous monitoring. Reactive NST. 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 3. ID: HIV negative. GBS negative. Membrane Status: intact 4. Indications for UDS: history of illicit drug use in last 12 months, +UDS for MJ in November but negative since. 5. History of gestational HTN: in a prior , 1 mild range BP on presentation today in setting of pain, previous PIH labs notable for LFTs normal, but platelets 111 and Cr 0.82, UPC 0.2 (06/03/18). Will continue to monitor given suspicion for evolving gestational HTN currently. 6. MOF: Plans to formula feed. 7. MOC: Desires post placental LNG-IUD to be placed, consents signed. 8. Pain management: Desires epidural now. 9. Post DVT prophylaxis: Patient has the following moderate risk factors: BMI>30. 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 female at 39w2d gestation, dated by 2nd trimester ultrasound Her is complicated by history of gHTN in prior , US findings of nasal hypoplasia and borderline NT s/p negative NIPT, MJ use, marginal cord insertion, iron deficiency anemia Presents with painful contractions that started yesterday afternoon. Patient Denies: [] Contractions [x] Shortness of Breath [] Nausea/Vomitting [x] Vaginal Bleeding [x] Headache [] Abdominal Pain [x] Leaking of Fluid [x] Visual changes [x] Decreased Movement Obstetric History T3 L3 SAB0 TAB1 Ectopic0 Multiple0 Live Births3 # Outcome Date GA Lbr Jose R/2nd Weight Sex Delivery Anes PTL Lv 5 Current 4 Term 07/04/13 40w2d 3.374 kg (7 lb 7 oz) M Vag-Spont EPI N ERIC Complications: Meconium in amniotic fluid 3 TAB 2011 2 Term 09/30/07 40w0d 2.948 kg (6 lb 8 oz) M Vag-Spont EPI N ERIC 1 Term 07/19/05 40w0d 3.118 kg (6 lb 14 oz) F Vag-Spont EPI N ERIC Complications: Induced Hypertension,Had umbilical cord around neck,Meconium in amniotic fluid 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 History of Abnormal Pap: None STD History: none Past Medical History: Diagnosis Date ??? Encounter for routine follow-up exam - (Added by TW Conv) ??? Preeclampsia Hx of pre eclampsia with at least 2 pregnancies. Chronic hypertension: No Diabetes: No Asthma: No History reviewed. No pertinent surgical history. Social History Substance Use Topics ??? Smoking status: Never Smoker ??? Smokeless tobacco: Never Used ??? Alcohol use No Father of baby involved: Yes Safe at home: Yes Denies tobacco/alcohol. Reports history of MJ this . Family history of bleeding or clotting disorders: No Family history of defects, genetic disorders, or developmental delay: No Allergies Allergen Reactions ??? Sulfa (Sulfonamide Antibiotics) Rash HOME MEDICATIONS : aspirin 81 mg chewable tablet ferrous sulfate 325 mg (65 mg of elemental iron) tablet metroNIDAZOLE (FLAGYL) 500 mg tablet ondansetron ODT (ZOFRAN-ODT) 8 mg disintegrating tablet PNV with tlvgcyo-gszf-EV ( VITAMIN PLUS LOW IRON) 27 mg iron- 1 mg tablet Review of Systems: Negative except per HPI Vitals: Temp: [97.7 ??F-98.6 ??F] 97.7 ??F Pulse: [75-110] 78 Resp: [16-18] 18 BP: (103-146)/(56-88) 110/56 Physical Exam: General: lying on her left side, appears uncomfortable with contractions Pulmonary: labored breathing with contractions Abdomen: Gravid, non-tender Palpates soft. Extremities: Warm and well perfused Speculum Exam: deferred Cervix: 3 /60 /-[address] [facility]. Monitoring: Baseline: 130 bpm, Variability: Moderate, Accelerations: Present and Decelerations: None Uterine Activity: uterine irritability Interpretation: Reactive Ultrasound: Vertex presentation Posterior placenta Previa: No Estimated Weight: 2415g (14%) at 36 week scan--> 3200g by Imtiaz Labs: Lab Results Component Value Date ABORH B Positive 12/03/2017 IDCOOMB Negative 12/03/2017 [id number] Nonreactive 05/21/2018 LABRPR Nonreactive 05/21/2018 RUBELIGG Positive (A) 12/03/2017 HEPBSAG Nonreactive 12/03/2017 VZVIGG Positive (A) 12/03/2017 Rh positive/Ab negative/HIV neg/Rub immune/RPR NR/HepB neg/HepC neg/VZV immune/GC/CT neg GBS neg +UDS for STORMY 11/2017, UDS all negative 06/03/18 Lab Results Component Value Date WBC 9.6 06/10/2018 HGB 9.6 (L) 06/10/2018 HCT 30.6 (L) 06/10/2018 MCV 78.5 (L) 06/10/2018 LABPLAT 111 (L) 06/10/2018 Lab Results Component Value Date GLUCOSE 88 06/03/2018 CALCIUM 9.1 06/03/2018 SODIUM 134 (L) 06/03/2018 POTASSIUM 4.1 06/03/2018 CO2 24 06/03/2018 CHLORIDE 103 06/03/2018 BUNSER 9 06/03/2018 CREATININE 0.82 06/03/2018 Assessment and Plan Nguyen Chatterjee is a 27 y.o. female at 39w2d by [facility] who is being admitted for painful contractions, latent labor. Patient Active Problem List Diagnosis Date Noted ??? Labor and delivery, indication for care 06/10/2018 Priority: High Overview Note: 1. Labor: Latent labor with painful contractions. Admit to L&D. Consents signed and placed in chart. Send CBC/T&S. Arnett score 7, with history of prior vaginal deliveries. Augment with OT. 2. FWB: Continuous monitoring. Reactive NST 3. ID: HIV negative. GBS negative. Membrane Status: intact 4. Indications for UDS: history of illicit drug use in last 12 months, +UDS for STORMY in November but negative since. 5. History of gestational HTN: in a prior , 1 mild range BP on presentation today in setting of pain, previous PIH labs notable for CBC/CMP normal, UPC 0.2 (06/03/18). Will continue to monitor. 6. MOF: Plans to formula feed. 7. MOC: Desires post placental LNG-IUD to be placed, consents signed. 8. Pain management: Desires epidural now. 9. Post DVT prophylaxis: Patient has the following moderate risk factors: BMI>30. Her post prophylaxis plan is SCDs and early ambulation Rere Bullock MD 06/10/18 Cosigned by Jennifer Sesay MD at 06/10/2018 7:08 AM PIG STICKER STICKER STICKER STICKER Associated attestation - Jennifer Sesay MD - 06/10/2018 7:08 AM PIG STICKER I have seen and examined the patient on 06/10/18. I agree with the findings and plan of care as documented in the resident's/fellow's note. Jennifer Sesay MD documented in this encounter Miscellaneous Notes * Plan of Care - Mayte Angel RN - 06/12/2018 8:29 AM CST Goals: Clinical Goals for the Shift: understanding of D/C instructions Summary: Activity: ??? Will verbalize the importance of balancing activity with adequate rest periods Adequate for Discharge Coping: ??? Ability to cope will improve Adequate for Discharge ??? Ability to identify and utilize available resources and services will improve Adequate for Discharge Health Behavior: ??? Understanding of discharge needs will improve Adequate for Discharge Lack of Knowledge: ??? Will have increased knowledge of Care Adequate for Discharge Life Cycle: ??? Risk for hemorrhage will decrease Adequate for Discharge ??? Chance of risk for complications during the period will decrease Adequate for Discharge Nutritional: ??? Dietary intake will improve Adequate for Discharge Role Relationship: ??? Ability to interact appropriately with will improve Adequate for Discharge Sensory: ??? General experience of comfort will improve Adequate for Discharge STICKER * Plan of Care - Rene Thompson RN - 06/12/2018 2:09 AM CST Goals: Activity: ??? Will verbalize the importance of balancing activity with adequate rest periods Progressing Coping: ??? Ability to cope will improve Progressing ??? Ability to identify and utilize available resources and services will improve Progressing Health Behavior: ??? Understanding of discharge needs will improve Progressing Lack of Knowledge: ??? Will have increased knowledge of Care Progressing Life Cycle: ??? Risk for hemorrhage will decrease Progressing ??? Chance of risk for complications during the period will decrease Progressing Nutritional: ??? Dietary intake will improve Progressing Role Relationship: ??? Ability to interact appropriately with will improve Progressing Sensory: ??? General experience of comfort will improve Progressing Clinical Goals for the Shift: Encourage rest periods Summary: Progressing, baby is in the nursery at this time so Mom can rest. Progressing toward care plan goals. STICKER * Plan of Care - Crystal Pelaez RN - 06/11/2018 5:47 PM CST Goals: Activity: ??? Will verbalize the importance of balancing activity with adequate rest periods Progressing Coping: ??? Ability to cope will improve Progressing ??? Ability to identify and utilize available resources and services will improve Progressing Health Behavior: ??? Understanding of discharge needs will improve Progressing Lack of Knowledge: ??? Will have increased knowledge of Care Progressing Life Cycle: ??? Risk for hemorrhage will decrease Progressing ??? Chance of risk for complications during the period will decrease Progressing Nutritional: ??? Dietary intake will improve Progressing Role Relationship: ??? Ability to interact appropriately with will improve Progressing Sensory: ??? General experience of comfort will improve Progressing Clinical Goals for the Shift: Visiting baby in NAC Summary: Patient is up ad delia, taking care of self and visiting her baby in the NAC. Remains afebrile; tolerating regular diet and voiding without difficulty, STICKER * Plan of Care - Coco Preston RN - 06/11/2018 3:55 AM CST Goals: Life Cycle: ??? Risk for hemorrhage will decrease Not Progressing ??? Chance of risk for complications during the period will decrease Not Progressing Sensory: ??? General experience of comfort will improve Not Progressing Clinical Goals for the Shift: rest; pain control; void in 4-6 hour Summary: pt up with assist x 1, voiding w/o difficulty. Resting in bed comfortably. STICKER * Plan of Care - Bee Jerez - 06/10/2018 7:42 PM CST Problem: Health Behavior: Goal: Understanding of discharge needs will improve Outcome: Progressing Problem: Lack of Knowledge: Goal: Verbalization of understanding the information provided will improve Outcome: Progressing Problem: Coping: Goal: Ability to identify appropriate support needs for the childbearing process will improve Outcome: Progressing Goal: Ability to verbilize concerns and feelings about labor and delivery improve Outcome: Progressing Problem: Life Cycle: Goal: Ability to maintain clinical measurements within normal limits will improve Outcome: Progressing Goal: Ability to make normal progression through stages of labor will improve Outcome: Progressing Goal: Ability to effectively push during vaginal delivery will improve Outcome: Progressing Problem: Role Relationship: Goal: Ability to demonstrate positive interaction with the child will improve Outcome: Progressing Problem: Safety: Goal: Chance of risk for complications during labor and delivery will decrease Outcome: Progressing Problem: Sensory: Goal: Relief or control of pain from uterine contractions will improve Outcome: Progressing Problem: Lack of Knowledge: Goal: Ability to state ways to decrease the risk of falls will improve Outcome: Progressing Problem: Safety: Goal: Will remain free from falls Outcome: Progressing Comments: Goals: Summary: STICKER * L&D Delivery Note - Megan English MD - 06/10/2018 6:16 PM PIG STICKER [facility] Vaginal Delivery Note Patient's Name: Nguyen Chatterjee : 1990 Resident: Elizabeth Ruiz MD Chief Resident:: Megan English MD Attending: Petey Juarez Clinic: [facility] Primary Diagnosis: Intrauterine at 39w2d, delivered Obstetrical Medical Risk Factors: Active Problems: History of marijuana use Labor and delivery, indication for care Delivery method: Vaginal, Spontaneous Delivery [250] Anesthesia: Epidural [254] Membranes: AROM Antibiotics: ampicillin/gentamicin for chorioamnionitis Delivery Date: 06/10/2018 Delivery Time: 6:09 PM Placenta Delivery Date & Time: 06/10/2018 6:12 PM Cord: nuchal cord x1 Delayed cord clamping: no Episiotomy: no Laceration: none EBL: 300 mL Infant: liveborn Infant APGARs: 7/9 Sex: female Weight: Disposition: NAC Labor Summary: Nguyen Chatterjee is a 27 y.o. female at 39w2d weeks gestation, dated by 2nd [facility] US with Estimated Date of Delivery: 06/15/18. She underwent IOL for latent labor and had history of gHTN (not anissue this ), marginal cord insertion, hypoplastic nasal bone, . Vertex presentationand GBS negative confirmed on admission. Her initial SVE was 3 / 40 / -3. Her membranes were intacton admission. Her labor was augmented with oxytocin. Epidural was placed for anesthesia. She developed fever consistent with chorioamnionitis and received ampicillin/gentamicin x1 dose. At time of delivery she had recurrent deep variable decelerations and was found to have progressed to complete. She was quickly set up for delivery and delivered a viable female infant. The cord was clamped and cut immediately and the baby was handed to waiting pediatricians. Thick meconium was noted and nuchal cord x1 was reduced. The third stage was actively managed with external uterine massage, gentle cord traction and pitocin. The placenta was delivered spontaneously and intact. No lacerations or tears were noted. An edematous anterior cervix was appreciated. Excellent hemostasis was noted. Total EBL was 300 mL. All counts were correct before and after the delivery. IUD was NOT placed secondary to chorioamnionitis. She was notified of this and counseledon consideration of bridge contraception and LNG-IUD insertion 6 weeks . Complications: chorioamnionitis Dr. Petey Matson was present for the entire delivery. OB attending I attest that I was present for and participated in this vaginal delivery on 06/10/[address] Iqbal's note. Petey Matson MD Maternal Medicine Fellow 06/10/18 Cosigned by Tone Gonzalez MD at 06/11/2018 1:40 PM PIG STICKER STICKER STICKER STICKER Associated attestation - Tone Gonzalez MD - 06/11/2018 1:40 PM PIG STICKER I reviewed the notes and I agree with the documentation provided by the resident and fellow. * Hospital Course - Sharmaine Peralta MD - 06/10/2018 11:19 AM PIG STICKER Nguyen Chatterjee is a 27 y.o. at 39w2d who presented with contractions. Her was complicated by gHTN in prior , US findings of nasal hypoplasia and borderline NT s/p negative NIPT, MJ use, marginal cord insertion, iron deficiency anemia. Her labor was augmented with pitocin and artificial rupture of membranes. Delivery was complicated by complicated by chorioamnionitis for which she recieved ampicillin/gentamicin x1 dose prior to delivery, cord was clamped immediately without delay for handoff to pediatrics. See delivery record for full details. The patient was transferred to . Her course was uncomplicated. Prior to discharge, her pain was well controlled, she was voiding, passing gas, ambulating, and meeting all post milestones. # ID: The patient became febrile to 100.4 prior to delivery, diagnosed with chorioamnionitis and given Amp and Gent. She has been afebrile for her entire course and displayed no signs of infection. #Heme: The patient has a history of iron deficiency anemia. Hgb 9.6 on delivery. She was given Ironbid. # CV/Pulm: The patient has a history of gestational hypertension, Her blood pressures normotensive controlled on no medications. She had one severe range blood pressure on presentation to L&D that resolved on recheck and her PIH labs were within normal limits. The patient remained asymptomatic,denied BOLAÑOS/RUQ pain/vision changes throughout admission. Her blood pressures were monitored and she did not require spotting or initiation of an antihypertensive regimen. #Mother/Baby: The patient has chosen to formula feed her infant and has chosen IUD, deferred to 6 week post- visit due to chorioamnionitis at time of delivery, for contraception. STICKER STICKER STICKER STICKER STICKER STICKER STICKER STICKER STICKER STICKER STICKER * Plan of Care - Stephanie Fournier RN - 06/10/2018 8:01 AM CST Coping: ??? Ability to identify appropriate support needs for the childbearing process will improve Progressing ??? Ability to verbilize concerns and feelings about labor and delivery improve Progressing Health Behavior: ??? Understanding of discharge needs will improve Progressing Lack of Knowledge: ??? Verbalization of understanding the information provided will improve Progressing Lack of Knowledge: ??? Ability to state ways to decrease the risk of falls will improve Progressing Life Cycle: ??? Ability to maintain clinical measurements within normal limits will improve Progressing ??? Ability to make normal progression through stages of labor will improve Progressing ??? Ability to effectively push during vaginal delivery will improve Progressing Role Relationship: ??? Ability to demonstrate positive interaction with the child will improve Progressing Safety: ??? Chance of risk for complications during labor and delivery will decrease Progressing Safety: ??? Will remain free from falls Progressing ??? Will remain free from injury from falls Progressing ??? Will remain free from falls and injury in home environment Progressing Sensory: ??? Relief or control of pain from uterine contractions will improve Progressing Goals: Summary: pt progressing in care plan STICKER * Plan of Care - Shaunna Rutherford RN - 06/10/2018 5:57 AM CST Goals: Safe delivery Summary: STICKER documented in this encounter Plan of Treatment Not on file documented as of this encounter Procedures Procedure Name Priority Date/Time Associated Diagnosis Comments US OB LIMITED IP Routine 06/11/2018 9:19 AM PIG STICKER Labor and delivery, indication for care SURGICAL PATHOLOGY Routine 06/10/2018 6: 12 PM PIG STICKER DRUG SCREEN, URINE STAT 06/10/2018 8: 13 AM PIG STICKER COMPREHENSIVE METABOLIC PANEL STAT 06/10/2018 8:13 AM PIG STICKER CBC WITHOUT DIFFERENTIAL STAT 06/10/2018 6:20 AM PIG STICKER TYPE AND SCREEN STAT 06/10/2018 6:20 AM PIG STICKER POCT URINALYSIS DIPSTICK Routine 06/10/2018 5:32 AM PIG STICKER GROUP B STREPTOCOCCUS CULTURE Routine 06/10/2018 documented in this encounter Results * US Ob Limited (06/11/2018 9:19 AM PIG STICKER) Anatomical Region Laterality Modality Abdomen N/A Ultrasound Narrative 06/11/2018 9:19 AM PIG STICKER vertex us Beverly Richard MD IMG OB US PROCEDURES Fin al Result * Surgical pathology (06/10/2018 6:12 PM PIG STICKER) 06/10/2018 6:12 PM PIG STICKER 06/11/2018 9:51 AM PIG STICKER Narrative 06/14/2018 4:14 PM PIG STICKER EPIC results best viewed via link to PDF [facility] [place] [address] SURGICAL PATHOLOGY REPORT FINAL Patient Name: ?? NGUYEN CHATTERJEE Gender: ??F : ??[id number] (Age: 27) Address: ??[address] [place] [id number] Hospital #: ??[id number] Taken:06/10/2018 Received:06/11/2018 Reported: 06/14/2018 Patient Type: [facility] Inpatient ?? Service: GENETICS Location: [facility] ??[id number] Physician(s): ??Jennifer Sesay MD Diagnosis: Placenta, vaginal delivery ? 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 - membranes with focal acute chorioamnionitis and numerous pigmented macrophages ? - Three vessel cord with no histopathologic abnormality ? - See comment ? ruel/06/13/2018 12:16 By this signature, I attest that the above diagnosis is based upon my personal examination of the slides(and/or other material indicated in the diagnosis). Juan C Blum M.D. Report Electronically Reviewed and Signed Out By ??Juan C Blum M.D. 06/14/2018 16:14:41 Microscopic Description and Comment: The maternal surface is partially disrupted so completeness cannot be confirmed. ??Clinical correlation is recommended. ??Microscopic examination substantiates the above cited diagnosis. Indigo Rodrigues M.D. History: The patient is a 27-year-old woman ( A1) who presents at 39 weeks 2 days' gestational age with history of gestational hypertension and meconium. ??Operative procedure: Vaginal delivery. Specimen(s) Received: A: Placenta, ??third trimester Gross Description: Received in formalin labeled with the patient's identifiers is a 455 gram, 18 x 16 x 2.5 cm placenta. ??The 30 cm in length three-vessel cord inserts into the placental disc 3.5 cm from the margin. ??In the same container is a separate 18 cm in length segment of cord. ??The membranes are dusky yellow-miranda with partial separation of the amnion from the chorion. ??The surface and surface vessels are within normal limits. ??The maternal surface has some disruption and completeness cannot be confirmed. ??The red spongy cut surface has no focal lesions. ??Labeled A1 - membranes and umbilical cord; A2 to A4 - placental disc. ??Jar 3. mab/06/11/2018 12:59 MATTY Portillo By this signature, I attest that the above diagnosis is based upon my personal examination of the slides(and/or other material). The performance characteristics of some immunohistochemical stains, fluorescence in-situ hybridization tests and immunophenotyping by flow cytometry cited in this report (if any) were determined by the Surgical Pathology Department at [facility] as part of an ongoing vice president quality assurance program and in compliance with federally mandated regulations drawn from the Clinical Laboratory Improvement Act of 1988 (CLIA '88). ??Some of these tests rely on the use of analyte specific reagents and are subject to specific labeling requirements by the US Food and Drug Administration. ??Such diagnostic tests may only be performed in a facility that is certified by the Department of Health and Human Services as a high complexity laboratory under CLIA '88. ??The FDA has determined that such clearance or approval is not necessary. ??This test is used for clinical purposes. ??It should not be regarded as investigational or for research. ??Nevertheless, federal rules concerning the medical use of analyte specific reagents require that the following disclaimer be attached to the report: This test was developed and its performance characteristics determined by the Surgical Pathology Department of [facility]. ??It has not been cleared or approved by the U. S. Food and Drug Administration. IMAGES AND SCANNED DOCUMENTS, IF INCLUDED, ONLY VIEWABLE IN PDF VERSION OF REPORT us Jennifer Sesay MD LAB PATHOLOGY ORDERABLE S Final Result * Drug screen, urine, SLC (06/10/2018 8:13 AM PIG STICKER) Drug screen, ur Negative [facility] Comment: Interpretive Data This test detects the presence of approximately 50 substances using LC-tandem mass spectrometry. For a list of specific compounds and detection limits refer to the Lab Test Guide Book. While this technique is highly specific, false-positive and false-negative findings may occur in very rare circumstances. Contact the [employer] Navigation Installer circulation analyst ([phone]) for consultation if needed. This test was developed and its performance characteristics determined by [facility]. It has not been cleared or approved by the U.S. Food and Drug Administration. Current interpretive data was last revised 2016. Testing performed by: [facility], [place]., [address] Director Review Not Indicated [facility] Comment:Testing performed by : [facility], [place]., [address] Urine 06/10/2018 8:13 AM PIG STICKER 06/10/2018 9:02 AM PIG STICKER Narrative [facility] - 06/10/2018 9:52 AM PIG STICKER us Ayaka Modi MD LAB URINE ORDERABLES Final R esult [facility] Department [place] [address] * (ABNORMAL) Comprehensive metabolic panel (06/10/2018 8:13 AM PIG STICKER) Sodium 136 135 - 145 mmol/L [facility] Potassium, pl 4.0 3.3 - 4.9 mmol/L [facility] Chloride 105 97 - 110 mmol/L [facility] CO2 24 22 - 32 mmol/L [facility] Anion gap 8 2 - 15 mmol/L [facility] BUN 9 8 - 25 mg/dL [facility] Creatinine 0.92 0.60 - 1.10 mg/dL [facility] Glucose 76 70 - 199 mg/dL [facility] Comment: Interpretive Data Fasting glucose >/= 126 [...] 2017. Calcium 9.0 8.5 - 10.3 mg/dL [facility] Bilirubin, total 0.2 0.1 - 1.2 mg/dL [facility] Protein, pl 6.6 6.5 - 8.5 g/dL [facility] Albumin 3.2(L) 3.5 - 5.0 g/dL [facility] Alk phos 154(H) 40 - 130 Units/L [facility] ALT 14 7 - 45 Units/L [facility] AST 24 10 - 45 Units/L [facility] Blood specimen (specimen) 06/10/2018 8:13 AM PIG STICKER 06/10/2018 8:22 AM PIG STICKER Narrative [facility] - 06/10/2018 8:48 AM PIG STICKER us Jennifer Sesay MD LAB BLOOD ORDERABLES Fi nal Result [facility] Department [place] [address] * (ABNORMAL) CBC without differential (06/10/2018 6:20 AM PIG STICKER) [facility] WBC 9.6 3.8 - 9.9 K/cumm [facility] Hgb 9.6(L) 11.9 - 15.5 g/dL [facility] Hct 30.6(L) 35.6 - 45.5 % [facility] Plt 111(L) 150 - 400 K/cumm [facility] MPV 11.1 9.1 - 12.3 fL [facility] RBC 3.90 3.90 - 5.20 M/cumm [facility] MCV 78.5(L) 81.3 - 96.4 fL [facility] MCH 24.6(L) 27.1 - 33.3 pg [facility] MCHC 31.4(L) 32.3 - 35.7 g/dL [facility] RDW CV 15.4(H) 11.1 - 14.9 % [facility] RDW SD 43.8 35.7 - 48.1 fL [facility] NRBC abs 0.00 0.00 - 0.01 K/cumm [facility] Blood specimen (specimen) 06/10/2018 6:20 AM PIG STICKER 06/10/2018 6:30 AM PIG STICKER Narrative [facility] - 06/10/2018 6:45 AM PIG STICKER Jennifer Sesay MD LAB BLOOD ORDERABLES Fi nal Result Performing Organization Address [facility] Co de Phone Number [facility] [employer] [place] [address] * Type and screen (06/10/2018 6:20 AM PIG STICKER) Jeronimo, indirect Negative [facility] ABO Rh B Positive [facility] Blood specimen (specimen) 06/10/2018 6:20 AM PIG STICKER 06/10/2018 6:28 AM PIG STICKER Narrative [facility] - 06/10/2018 7:51 AM PIG STICKER Has the patient had Daratumumab (Darzalex) in the past 6 months?->Unknown Jennifer Sesay MD LAB BLOOD BANK TEST ORD ERABLES Final Result Performing Organization Address [facility] Co de Phone Number [facility] [place] [address] * (ABNORMAL) POCT urinalysis dipstick (06/10/2018 5:32 AM PIG STICKER) Color, Urine, POC Kathy Clarity, ur, POC Clear Clear Glucose, ur, POC Negative Negative mg/dL Bilirubin, ur, POC Negative Negative Ketones, ur, POC Negative Negative Specific [place], POC 1.025 1.005 - 1.030 Blood, ur, POC 1+(A) Negative pH, ur, POC 6.5 5.0 - 8.0 Protein, ur, POC 1+(A) Negative Nitrite, ur, POC Negative Negative Leukocytes, ur, POC Negative Negative Lot Number [id number] Urine 06/10/2018 5:32 AM PIG STICKER Result [facility] Ambar Dumont MD POINT OF CARE TEST ORDERAB LES Final Result * Group B streptococcal culture (06/10/2018) SCRIBED Group B Strep neg Lisseth Ty MD LAB MICROBIOLOGY - NERTN ORDERABLES Final Result documented in this encounter Visit Diagnoses Diagnosis Labor and delivery, indication for care- Primary Unspecified indication for care or intervention related to labor and delivery, unspecified as to episode of care Labor and delivery, indication for care Unspecified indication for care or intervention related to labor and delivery, unspecified as to episode of care History of marijuana use Spontaneous vaginal delivery Normal delivery documented in this encounter Administered Medications Inactive Administered Medications - up to 3 most recent administrations Medication Order MAR Action Action Date Dose Rate Site acetaminophen (TYLENOL) tablet 1,000 mg 1,000 mg, oral, Once, On Sun06/10/18 at 0445, For 1 dose Given 06/10/2018 4:24 AM PIG STICKER 1,000 mg acetaminophen (TYLENOL) tablet 1,000 mg 1,000 mg, oral, Every 6 hours, First dose on Sun06/10/18 at 1915, Indications: Fever, PainIndications:Fever,Pain Given 06/11/2018 8:37 PM PIG STICKER 1,000 mg Given 06/11/2018 6:00 AM PIG STICKER 1,000 mg Given 06/11/2018 12:15 AM PIG STICKER 1,000 mg acetaminophen (TYLENOL) tablet 1,000 mg 1,000 mg, oral, Once, On Sun06/10/18 at 1900, For 1 dose Given 06/10/2018 6:22 PM PIG STICKER 1,000 mg acetaminophen (TYLENOL) tablet 1,000 mg 1,000 mg, oral, Every 6 hours PRN, 1st line for pain, Starting on Sun06/11/18 at 2215, Indications: Fever, PainIndications:Fever,Pain ampicillin 2000 mg in 60 mL sterile water (premix) 2,000 mg 2,000 mg, intravenous, Administer over 30 Minutes, Once, On Sun06/10/18 at 1900, For 1 dose, Indications: Urinary Tract/Genitourinary Infection, for chorioamnionitis. continue until deliveryIndications:Urinary Tract/Genitourinary Infection,for chorioamnionitis. continue until delivery New Bag 06/10/2018 10:15 PM PIG STICKER 2,000 mg aspirin chewable tablet 81 mg 81 mg, oral, Daily, First dose on Sun06/10/18 at 0900 Given 06/12/2018 8:10 AM PIG STICKER 81 mg Given 06/11/2018 9:16 AM PIG STICKER 81 mg dextrose 5% and Lactated Ringer's infusion 125 mL/hr, intravenous, Continuous, Starting on Sun06/10/18 at 0645, L&D Pre-Delivery New Bag 06/10/2018 7:00 AM PIG STICKER 125 mL/hr 125 mL/hr diphenhydrAMINE (BENADRYL) tab/cap 25 mg 25 mg, oral, Once, On Sun06/10/18 at 1415, For 1 dose Given 06/10/2018 2:03 PM PIG STICKER 25 mg docusate sodium (COLACE) capsule 100 mg 100 mg, oral, 2 times daily, First dose on Sun06/10/18 at 2100, Hold if diarrhea., Indications: constipation, Stool SoftenerIndications:constipation ,Stool Softener Given 06/12/2018 8:10 AM PIG STICKER 100 mg Given 06/11/2018 8:38 PM PIG STICKER 100 mg Given 06/11/2018 9:16 AM PIG STICKER 100 mg ferrous sulfate tablet 325 mg 325 mg (65 mg of elemental iron), oral, 2 times daily, First dose on Sun06/10/18 at 0900, Indications: Iron Deficiency AnemiaIndications:Iron Deficiency Anemia Given 06/12/2018 8:10 AM PIG STICKER 325 mg Given 06/11/2018 8:38 PM PIG STICKER 325 mg Given 06/11/2018 9:16 AM PIG STICKER 325 mg gentamicin (GARAMYCIN) 500 mg in 50 mL sodium chloride 0.9% (premix) - ADS Override Pull Starting on Sun06/10/18 at 1756, For 1 dose, STEPHANIE FOURNIER: cabinet override gentamicin (GARAMYCIN) 500 mg in 50 mL sodium chloride 0.9% (premix) 500 mg 500 mg, intravenous, at 100 mL/hr, Administer over 30 Minutes, Once, On Sun06/10/18 at 1830, For 1 dose, Indications: Other (complete free text reason below), ChorioamnionitisIndications:Other (complete free text reason below),Chorioamnionitis New Bag 06/10/2018 5:50 PM PIG STICKER 500 mg 100 mL/ hr ibuprofen (ADVIL,MOTRIN) tablet 600 mg 600 mg, oral, Every 6 hours PRN, other, cramping, Starting on Sun06/10/18 at 1833, Indications: CrampsIndications:Cramps Given 06/12/2018 8:10 AM PIG STICKER 600 mg Given 06/11/2018 8:37 PM PIG STICKER 600 mg Given 06/11/2018 4:00 AM PIG STICKER 600 mg Lactated Ringer's (LR) bolus 1,000 mL 1,000 mL, intravenous, Once, On Sun06/10/18 at 0830, For 1 dose, 15 to 30 minutes before epidural placement. New Bag 06/10/2018 7:25 AM PIG STICKER 1,000 mL Lactated Ringer's (LR) infusion - ADS Override Pull Starting on Sun06/10/18 at 0659, For 1 dose, MYRIAM ALDANA: cabinet override ondansetron (ZOFRAN) injection 4 mg 4 mg, intravenous, Administer over 2 Minutes, Every 6 hours PRN, nausea, vomiting, if not tolerating PO, Starting on Sun06/11/18 at 1613, Start in 24 hours after Anesthesia no longer covering., Indications: Nausea and VomitingIndications:Nausea and Vomiting ondansetron ODT (ZOFRAN-ODT) disintegrating tablet 4 mg 4 mg, oral, Every 4 hours PRN, nausea, vomiting, Starting on Sun06/10/18 at 1057 Given 06/10/2018 11:22 AM PIG STICKER 4 mg ondansetron ODT (ZOFRAN-ODT) disintegrating tablet 4 mg 4 mg, oral, Every 6 hours PRN, nausea, vomiting, Starting on Sun06/11/18 at 1613, Start in 24 hours after Anesthesia no longer covering., Indications: Nausea and VomitingIndications:Nausea and Vomiting oxytocin 30 units in 500 mL sodium chloride 0.9% (premix) 0.5-40 milliunits/min (0.5-40 mL/hr), 0.06 units/mL, intravenous, Titrated, Starting on Sun06/10/18 at 1015, Until Sun06/10/18 at 1833, Indications: Induction of Labor, Start at 2 rony-units/min and increase by 2 rony-units/minutes every 30 minutes until contraction frequency is every 2-3 minutes. - - 20 milliunits/minutes maximum - All other patients 40 milliunits/minute maximum Discontinue for distress or uterine hyperstimulation., RoutineIndications:Inductio n of Labor Rate/Dose Change 06/10/2018 5:54 PM PIG STICKER 8 milliunits/min 8 mL/hr Rate/Dose Change 06/10/2018 3:00 PM PIG STICKER 18 milliunits/min 18 mL/hr Rate/Dose Change 06/10/2018 2:32 PM PIG STICKER 16 milliunits/min 16 mL/hr oxytocin 30 units in 500 mL sodium chloride 0.9% (premix) 95-334 milliunits/min (95-334 mL/hr), 0.06 units/mL, intravenous, Continuous, Starting on Sun06/10/18 at 1915, Until Sun06/12/18 at 2140, Indications: Hemorrhage, Administer 334 rony-units/min for 30 minutes and then reduce to 95 rony-units/min for 3.5 hours. , RoutineIndications:Postp artum Hemorrhage Rate/Dose Change 06/10/2018 6:45 PM PIG STICKER 95 milliunits/min 95 mL/hr New Bag 06/10/2018 6:10 PM PIG STICKER 334 milliunits/min 334 m L/hr PNV with kditbjc-uzuk-DK tablet 1 tablet 1 tablet, oral, Daily, First dose on Sun06/10/18 at 0900 Given 06/12/2018 8:10 AM PIG STICKER 1 tablet Given 06/11/2018 9:16 AM PIG STICKER 1 tablet polyethylene glycol (MIRALAX) packet 17 g 17 g, oral, Daily, First dose on Sun06/10/18 at 1915, Hold if diarrhea., Indications: constipationIndications:constipation Given 06/12/2018 8:10 AM PIG STICKER 17 g Given 06/11/2018 9:17 AM PIG STICKER 17 g SUFentanil 0.5 mcg/mL and bupivacaine 0.1 % preservative free in sodium chloride 0.9% (prefilled) Continuous Rate: 10 mL/hr, Patient Bolus Dose: other / 6, Lockout Interval: 15 Minutes, epidural, Continuous, Starting on Sun06/10/18 at 0830, Until Sun06/12/18 at 0729, 100 mL, Indications: Pain, Stop epidural infusion after placental delivery and any indicted repair is complete., RoutineIndications:Pain New Syringe/Cartridge 06/10/2018 5:29 PM PIG STICKER 100 mg New Syringe/Cartridge 06/10/2018 11:58 AM PIG STICKER 100 mg New Syringe/Cartridge 06/10/2018 7:56 AM PIG STICKER 100 mg documented in this encounter Discontinued Medications Medication Sig Discontinue Reason Start Date End Da te aspirin 81 mg chewable tablet Take 1 tablet by mouth daily. Stop Taking at Discharge 12/03/2017 06/12/2018 ondansetron ODT (ZOFRAN-ODT) 8 mg disintegrating tablet Take 1 tablet by mouth every 8 (eight) hours as needed. Stop Taking at Discharge 12/03/2017 06/12/2018 metroNIDAZOLE (FLAGYL) 500 mg tabletIndications:Bacteri al vaginosis Take 1 tablet (500 mg total) by mouth 2 (two) times a day. Stop Taking at Discharge 12/31/2017 06/12/2018 documented as of this encounter Active and Recently Administered Medications Times are shown in PIG STICKER. Scheduled Medication Order 06/10/2018 06/11/2018 06/12/2018 acetaminophen (TYLENOL) tablet 1,000 mg (COMPLETED) 1,000 mg, oral, Once, On Sun06/10/18 at 0445, For 1 dose 0424 (Given - Provider: Shaunna Rutherford RN) acetaminophen (TYLENOL) tablet 1,000 mg (CANCELED) 1,000 mg, oral, Every 6 hours, First dose on Sun06/10/18 at 1915, Indications: Fever, Pain 2044 (Not Given - Provider: Coco Preston RN - Reason: Order parameters not met) 0015 (Given - Provider: Coco Preston RN)0600 (Given - Provider: Coco Preston RN)1200 (Not Given - Provider: Crystal Pelaez RN - Reason: Patient/family refused)2036 (Given - Provider: Rene Thompson, JOHNNY) acetaminophen (TYLENOL) tablet 1,000 mg (COMPLETED) 1,000 mg, oral, Once, On Sun06/10/18 at 1900, For 1 dose 1822 (Given - Provider: Stephanie Fournier, JOHNNY) ampicillin 2000 mg in 60 mL sterile water (premix) 2,000 mg (COMPLETED) 2,000 mg, intravenous, Administer over 30 Minutes, Once, On Sun06/10/18 at 1900, For 1 dose, Indications: Urinary Tract/Genitourinary Infection, for chorioamnionitis. continue until delivery 2214 (New Bag - Provider: Coco Preston RN) aspirin chewable tablet 81 mg 81 mg, oral, Daily, First dose on Sun06/10/18 at 0900 1233 (Not Given - Provider: Stephanie Fournier RN - Reason: NPO) 0916 (Given - Provider: Crystal Pelaez RN) 0810 (Given - Provider: Mayte Angel, JOHNNY) diphenhydrAMINE (BENADRYL) tab/cap 25 mg (COMPLETED) 25 mg, oral, Once, On Sun06/10/18 at 1415, For 1 dose 1403 (Given - Provider: Stephanie Fournier, JOHNNY) docusate sodium (COLACE) capsule 100 mg 100 mg, oral, 2 times daily, First dose on Sun06/10/18 at 2100, Hold if diarrhea., Indications: constipation, Stool Softener 2044 (Not Given - Provider: Coco Preston RN - Reason: Other) 0916 (Given - Provider: Crystal Pelaez RN)2037 (Given - Provider: Rene Thompson, JOHNNY) 0810 (Given - Provider: Mayte Angel, JOHNNY) ferrous sulfate tablet 325 mg 325 mg (65 mg of elemental iron), oral, 2 times daily, First dose on Sun06/10/18 at 0900, Indications: Iron Deficiency Anemia 1233 (Not Given - Provider: Stephanie Fournier RN - Reason: NPO)2044 (Not Given - Provider: Coco Preston RN - Reason: Other) 0916 (Given - Provider: Crystal Pelaez RN)2037 (Given - Provider: Rene Thompson RN) 0810 (Given - Provider: Mayte Angel, JOHNNY) gentamicin (GARAMYCIN) 500 mg in 50 mL sodium chloride 0.9% (premix) 500 mg (COMPLETED) 500 mg, intravenous, at 100 mL/hr, Administer over 30 Minutes, Once, On Sun06/10/18 at 1830, For 1 dose, Indications: Other (complete free text reason below), Chorioamnionitis 1750 (New Bag - Provider: Stephanie Fournier, JOHNNY)1837 (Stopped - Provider: Stephanie Fournier RN) Lactated Ringer's (LR) bolus 1,000 mL (COMPLETED) 1,000 mL, intravenous, Once, On Sun06/10/18 at 0830, For 1 dose, 15 to 30 minutes before epidural placement. 0725 (New Bag - Provider: Stephanie Fournier RN)0845 (Stopped - Provider: Stephanie Fournier RN) PNV with afweghc-hrxf-AW tablet 1 tablet 1 tablet, oral, Daily, First dose on Sun06/10/18 at 0900 1233 (Not Given - Provider: Stephanie Fournier RN - Reason: NPO) 0916 (Given - Provider: Crystal Pelaez RN) 0810 (Given - Provider: Mayte Angel, RN) polyethylene glycol (MIRALAX) packet 17 g 17 g, oral, Daily, First dose on Sun06/10/18 at 1915, Hold if diarrhea., Indications: constipation 2044 (Not Given - Provider: Coco Preston RN - Reason: Other - Comment: pt on bedrest; start in am) 0917 (Given - Provider: Crystal Pelaez RN) 0810 (Given - Provider: Mayte Angel, RN) Continuous Medication Order 06/10/2018 06/11/2018 06/12/2018 dextrose 5% and Lactated Ringer's infusion (CANCELED) 125 mL/hr, intravenous, Continuous, Starting on Sun06/10/18 at 0645, L&D Pre-Delivery 0700 (New Bag - Provider: Myriam Aldana)1430 (Due) oxytocin 30 units in 500 mL sodium chloride 0.9% (premix) (CANCELED) 0.5-40 milliunits/min (0.5-40 mL/hr), 0.06 units/mL, intravenous, Titrated, Starting on Sun06/10/18 at 1015, Until Sun06/10/18 at 1833, Indications: Induction of Labor, Start at 2 rony-units/min and increase by 2 rony-units/minutes every 30 minutes until contraction frequency is every 2-3 minutes. - - 20 milliunits/minutes maximum - All other patients 40 milliunits/minute maximum Discontinue for distress or uterine hyperstimulation., Routine 0945 (New Bag - Provider: Stephanie Fournier RN - Comment: verified by ayaka white)1030 (Rate/Dose Change - Provider: Stephanie Fournier RN)1100 (Rate/Dose Change - Provider: Stephanie Fournier RN)1128 (Rate/Dose Change - Provider: Stephanie Fournier RN)1159 (Rate/Dose Change - Provider: Stephanie Fournier RN)1232 (Rate/Dose Change - Provider: Stephanie Fournier RN)1301 (Rate/Dose Change - Provider: Stephanie Fournier RN)1432 (Rate/Dose Change - Provider: Stephanie Fournier RN)1500 (Rate/Dose Change - Provider: Stephanie Fournier RN)1754 (Rate/Dose Change - Provider: Stephanie Fournier RN)1757 (Stopped - Provider: Stephanie Fournier RN) oxytocin 30 units in 500 mL sodium chloride 0.9% (premix) 95-334 milliunits/min (95-334 mL/hr), 0.06 units/mL, intravenous, Continuous, Starting on Sun06/10/18 at 1915, Until Sun06/12/18 at 2140, Indications: Hemorrhage, Administer 334 rony-units/min for 30 minutes and then reduce to 95 rony-units/min for 3.5 hours. , Routine 181 (New Bag - Provider: Stephanie Fournier RN)1845 (Rate/Dose Change - Provider: Stephanie Fournier RN) SUFentanil 0.5 mcg/mL and bupivacaine 0.1 % preservative free in sodium chloride 0.9% (prefilled) (CANCELED) Continuous Rate: 10 mL/hr, Patient Bolus Dose: other / 6, Lockout Interval: 15 Minutes, epidural, Continuous, Starting on Sun06/10/18 at 0830, Until Sun06/12/18 at 0729, 100 mL, Indications: Pain, Stop epidural infusion after placental delivery and any indicted repair is complete., Routine 0756 (New Syringe/Cartridge - Provider: Stephanie Fournier RN)1158 (New Syringe/Cartridge - Provider: Stephanie Fournier RN)1729 (New Syringe/Cartridge - Provider: Stephanie Fournier RN)1810 (Stopped (Dual Sign) - Provider: Stephanie Fournier RN) PRN Medication Order 06/10/2018 06/11/2018 06/12/2018 acetaminophen (TYLENOL) tablet 1,000 mg 1,000 mg, oral, Every 6 hours PRN, 1st line for pain, Starting on Sun06/11/18 at 2215, Indications: Fever, Pain aluminum-magnesium hydroxide-simethicone (MAALOX) 40-40-4 mg/mL oral suspension 30 mL 30 mL, oral, Every 6 hours PRN, indigestion, heartburn, Starting on Sun06/10/18 at 1833, Indications: Dyspepsia benzocaine-menthol (DERMOPLAST) 20-0.5 % topical spray 1 spray 1 spray, topical, As needed, other, perianal area for pain, Starting on Sun06/10/18 at 1833, Up to 6 times a day., Apply to affected area: perineum, Indications: Minor Skin Wound Pain hydrocortisone (ANUSOL-HC) 2.5 % rectal cream rectal, 3 times daily PRN, hemorrhoids, Starting on Sun06/10/18 at 1833, Indications: Hemorrhoids ibuprofen (ADVIL,MOTRIN) tablet 600 mg 600 mg, oral, Every 6 hours PRN, other, cramping, Starting on Sun06/10/18 at 1833, Indications: Cramps 2045 (Given - Provider: Belen Rodriguez RN) 0400 (Given - Provider: Coco Preston, RN)2036 (Given - Provider: Rene Thompson, JOHNNY) 0810 (Given - Provider: Mayte Angel, RN) ondansetron (ZOFRAN) injection 4 mg(Linked Group 1) 4 mg, intravenous, Administer over 2 Minutes, Every 6 hours PRN, nausea, vomiting, if not tolerating PO, Starting on Sun06/11/18 at 1613, Start in 24 hours after Anesthesia no longer covering., Indications: Nausea and Vomiting ondansetron ODT (ZOFRAN-ODT) disintegrating tablet 4 mg 4 mg, oral, Every 4 hours PRN, nausea, vomiting, Starting on Sun06/10/18 at 1057 [id number] (Given - Provider: Stephanie Fournier RN) ondansetron ODT (ZOFRAN-ODT) disintegrating tablet 4 mg(Linked Group 1) 4 mg, oral, Every 6 hours PRN, nausea, vomiting, Starting on Sun06/11/18 at 1613, Start in 24 hours after Anesthesia no longer covering., Indications: Nausea and Vomiting sodium chloride 0.9% flush 0.5-20 mL 0.5-20 mL, intra-catheter, As needed, line care, Starting on Sun06/10/18 at 0752, Flush volume based on line type and size. Flush before and after each use. Linked Groups Order Group 1: ondansetron ODT (ZOFRAN-ODT) disintegrating tablet 4 mgJump to med 4 mg, oral, Every 6 hours PRN, nausea, vomiting, Starting on Sun06/11/18 at 1613, Start in 24 hours after Anesthesia no longer covering., Indications: Nausea and Vomiting Or ondansetron (ZOFRAN) injection 4 mgJump to med 4 mg, intravenous, Administer over 2 Minutes, Every 6 hours PRN, nausea, vomiting, if not tolerating PO, Starting on Sun06/11/18 at 1613, Start in 24 hours after Anesthesia no longer covering., Indications: Nausea and Vomiting documented in this encounter Orders Medications Ordered That Juan ht Not Have Been Administered Count Last Ordered Date First Ordered Date acetaminophen (TYLENOL) tablet 1,000 mg 1 08/11/2017 aluminum-magnesium hydroxide -simethicone (MAALOX) 40-40-4 mg/mL oral suspension 30 mL 1 06/10/2018 ampicillin 2000 mg in 60 mL sterile water (premix) 2,000 mg 1 06/10/2018 benzocaine-menthol (DERMOPLA ST) 20-0.5 % topical spray 1 spray 1 06/10/2018 hydrocortisone (ANUSOL-HC) 2 .5 % rectal cream 1 06/10/2018 levonorgestrel (LILETTA) 19. 5 mcg/24 hour (4 years) IUD 1 each 1 06/10/2018 naloxone (NARCAN) 0.4 mg/mL injection 0.04-0.4 mg 1 06/10/2018 ondansetron (ZOFRAN) injection 4 mg 1 06/10 ondansetron ODT (ZOFRAN-ODT) disintegrating tablet 4 mg 1 06/10/2018 oxytocin 30 units in 500 mL sodium chloride 0.9% (premix) 1 06/10/2018 sodium chloride 0.9% flush 0.5-20 mL 4 05/17 Consult Count Last Ordered Date First Orde red Date IP CONSULT TO SOCIAL WORK 1 06/10/2018 Admission Count Last Ordered Date First Orde red Date ASSIGN PATIENT STATUS 1 06/10/2018 Transfer Count Last Ordered Date First Orde red Date TRANSFER PATIENT 1 06/10/2018 CORE MEASURES Count Last Ordered Date First Ord ered Date REASON FOR NO VTE PROPHYLAXI S - HOSPITAL ADMISSION - MEDICATIONS 1 06/10/2018 REASON FOR NO VTE PROPHYLAXIS AT ADMISSION 1 06/10/2018 documented in this encounter Care Teams Shear Operator Automatic Relationship Specialty Start Date End Date No, Physician PCP - General 12/03/17 01/03/23 documented as of this encounter
--- OUTSIDE RECORDS SUMMARY | 2024-07-28 06:40 | XMS_ITS | Encounter Summary ---
Author Organization [facility] Healthcare Address [address] [place] [address] Care Team Providers Care Product Sales Engineer Name Role Phone No, Physician Primary Care Provider [phone] Encounter Details Date Type Department Care Team (Late st Contact Info) Description 06/03/2018 Orders Only [facility] [address], [place] [id number] Klarissa Regan, EVELYN [address] 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 Samples containing greater than 500 ng/mL of amphetamine/methamphetamine or other cross-reacting substances are reported as presumptive and submitted for confirmatory testing. See separate confirmatory results for final interpretation.Results are to be used for medical purposes only. ? Current interpretive data was last revised 2015. Barbiturates, Class None detected DEJAH WILKERSON Comment: Interpretive Data Immunoassay Screen cutoff level 200 ng/mL. Samples containing greater than 200 ng/mL of barbiturates or other cross-reacting substances are reported as screen positive, but are not routinely submitted for confirmatory testing. If confirmation is required, please contact the laboratory. Results are to be used for medical purposes only. Current interpretive data was last revised 2018. Benzodiazepines, ur None detected CERHARLAN WILKERSON Comment: Interpretive Data Immunoassay Screen cutoff level 200 ng/mL. Samples containing greater than 200 ng/mL of benzodiazepines or other cross-reacting substances are reported as screen positive, but are not routinely submitted for confirmatory testing. If confirmation is required, please contact the laboratory. Results are to be used for medical purposes only. Current interpretive data was last revised 2015. Cannabinoids, Screen None detected DEJAH WILKERSON Comment: Interpretive Data Immunoassay Screen cutoff level 50 ng/mL. Samples containing greater than 50 ng/mL of cannabinoids or other cross-reacting substances are reported as presumptive and submitted for confirmatory testing on obstetrics and pediatric patients only. ??Cannabinoids screen result is reported as screen positive for all other adults;confirmation is not performed unless requested. Results are to be used for medical purposes only. ? Current interpretive data was last revised 2015. Cocaine metabolite None detected DEJAH WILKERSON Comment: Interpretive Data Immunoassay Screen cutoff level 150 ng/mL. Samples containing greater than 150 ng/mL of cocaine metabolite or other cross-reacting substances are reported as presumptive and submitted for confirmatory testing. See separate confirmatory results for final interpretation. Results are to be used for medical purposes only. Current interpretive data was last revised 2015. Methadone, ur None detected DEJAH WILKERSON Comment: Interpretive Data Immunoassay Screen cutoff level 300 ng/mL. Samples containing greater than 300 ng/mL of methadone or other cross-reacting substances are reported as presumptive and submitted for confirmatory testing. ??See separate confirmatory results for final interpretation. ??Results are to be used for medical purposes only. ? Current interpretive data was last revised 2015. Opiates, Class None detected DEJAH WILKERSON Comment: Interpretive Data Immunoassay Screen cutoff level 300 ng/mL. Samples containing greater than 300 ng/mL of opiates or other cross-reacting substances are reported as presumptive and submitted for confirmatory testing. ??See separate confirmatory results for final interpretation. ??Testing does not include opioids. ??Results are to be used for medical purposes only. Current interpretive data was last revised 2015. Oxycodone, ur None detected DEJAH WILKERSON Comment: Interpretive Data Immunoassay Screen cutoff level 100 ng/mL. ??Samples containing greater than 100 ng/mL of oxycodone or other cross-reacting substances are reported as presumptive and submitted for confirmatory testing. ??See separate confirmatory results for final interpretation. ??Results are to be used for medical purposes only. Current interpretive data was last revised on 2015. Phencyclidine, ur None detected DEJAH WILKERSON Comment: Interpretive Data Immunoassay Screen cutoff level 25 ng/mL. Samples containing greater than 25 ng/mL of phencyclidine (PCP) or other cross-reacting substances are reported as presumptive and submitted for confirmatory testing. ??See separate confirmatory results for final interpretation. Results are to be used for medical purposes only. ? Current interpretive data was last revised 2015. Urine 06/03/2018 7:25 PM KEG VARNISHER 06/03/2018 8:05 PM KEG VARNISHER Narrative [facility] - 06/03/2018 9:02 PM KEG VARNISHER us Klarissa Regan LEATHER [employer] MATCHER LAB URINE ORDERABLES Final Result Performing Organization Address City/State/[facility] Co de Phone Number [facility] Department [place] [address] documented in this encounter Visit Diagnoses Diagnosis 36 weeks gestation of documented in this encounter Care Teams Product Sales Engineer Relationship Specialty Start Date End Date No, Physician PCP - General 12/03/17 01/03/23 documented as of this encounter
--- OUTSIDE RECORDS SUMMARY | 2024-07-28 06:40 | XMS_ITS | Encounter Summary ---
Author Organization [facility] Healthcare Address [address] [place] [address] Care Team Providers Care Compounder Flavorings Name Role Phone No, Physician Primary Care Provider [phone] Reason for Visit * Reason Comments Abscess Encounter Details Date Type Department Care Team (Latest Contact Info) Description 04/11/2021 2:28 AM CDT - 04/19/2021 2:36 PM CDT Hospital Encounter [facility] [address] [place] [address] Hiro Taylor MD [address] [place] [address] Angel Lal MD [address] [place] [address] Abscess (Primary Dx); Dental abscess; Abscess of blanket folder space of mouth Discharge Disposition: Discharge to home or self [...] on file 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 Gender Identity Not on file Sexual Orientation Not on file documented as of this encounter Last Filed Vital Signs Vital Sign Reading Time Taken Comments Blood Pressure 126/81 04/19/2021 9:00 AM CDT Pulse 94 04/19/2021 9:00 AM CDT Temperature 36.3 ??C (97.4 ??F) 04/19/2021 9:00 AM CD T Respiratory Rate 16 04/19/2021 9:00 AM CDT Oxygen Saturation 100% 04/19/2021 9:00 AM CDT Inhaled Oxygen Concentration - - Weight 59 kg (130 lb) 04/14/2021 5:44 AM CDT Height 165.1 cm (5' 5 ) 04/10/2021 11:59 PM CDT Body Mass Index 21.63 04/10/2021 11:59 PM CDT documented in this encounter Discharge Diagnoses Diagnosis Periapical abscess without sinus - PERIAPICAL ABSCESS WITHOUT SINUS Dysphagia, unspecified - DYSPHAGIA, UNSPECIFIED Contact with and (suspected) exposure to covid-19 - CONTACT WITH AND (SUSPECTED) EXPOSURE TO COVID-19 Other specified disorders of teeth and supporting structures - OTHER SPECIFIED DISORDERS OF TEETH AND SUPPORTING STRUCTURES documented in this encounter Discharge Summaries * Sean Ward MD - 04/19/2021 6:54 AM CDT Inpatient Discharge Summary BRIEF OVERVIEW Admitting Provider: Angel Lal MD Discharge Provider: Angel Lal MD Primary Care Physician at Discharge: No, Physician [phone] Admission Date: 04/11/2021 Discharge Date: 04/19/2021 Admission Location: [facility] Problems/Diagnoses: Principal Problem: Dental abscess Resolved Problems: No resolved hospital problems. DETAILS OF HOSPITAL STAY Presenting Problem/History of Present Illness: Patient is a 30 y.o. female. She presented with a blanket folder space abscess. She has a history of [...] unasyn, and CT was c oncerning for blanket folder space abscess. ?? she was transferred to [facility] for INCISION AND DRAINAGE - ORAL CAVITY, [...] Once stable, the patient was transferred to [facility]. There were no acuteevents. Postoperative plan [...] (soft) Diet effective now Question Answer Comment ([facility]) Diet type GI Diets Modified Consistency: Dysphagia [...] STAIN - Abnormal Narrative: Testing performed by [facility] ([phone]) Specimens submitted from normally sterile body sites [...] Service Line: Home Health Primary disciplines requested: Detention Home Health Services: Wound/ Ostomy Care Physician [...] Service Line: Home Health Primary disciplines requested: Detention Home Health Services: Wound/ Ostomy Care Other [...] for home health care. (List medical condition): blanket folder space abscess I certify that, based on [...] Service Line: Home Health Primary disciplines requested: Detention Home Health Services: Wound/ Ostomy Care Physician [...] for home health care. (List medical condition): blanket folder space abscess I certify that, based on [...] pole syringes Supplies: Indwelling NG Tubes The lteo-yu-sany evaluation was performed on: 04/12/2021 DME services provided by: External Agency Your home health agency is: [facility] [phone] You should be contacted by the home health care agency within 1-2 days of discharge regarding scheduling visit. If you don't hear from them, please call the number listed above to follow-up. [facility] [phone] for tube feeding supplies and formula ; [...] pain Commonly known as: ADVIL,MOTRIN influenza quadrivalent 60 mcg (15 mcg x 4)/0.5 mL [...] by mouth daily. Generic drug: PNV with cexmoap-ruri-NI * This list has 2 medication(s) that are the same as other medications prescribed for you. Read the directions carefully, and ask your doctor or other care provider to review them with you. Outpatient Follow-Up: Future Appointments Date Time Provider Department Center 05/19/2021 10:20 AM Angel Lal MD [facility] Cosigned by Angel Lal MD at 04/19/2021 [...] needed. - Stool Softener: Take stool softener (Kqpl-gsy-toxpelm or prescription) while taking narcotic medication to [...] or contact the main office line at [phone]. Follow up: You should follow up in Angel Navarro MD's clinic as scheduled below. [address] [place] [address] OTHER FOLLOW UP: 1. PCP - for management of all chronic illnesses Future Appointments Date Time Provider Department Center 05/19/2021 10:20 AM Angel Lal MD [facility] Phone numbers ??? Appointment Scheduling: ??? After hours or Weekends: Call and ask for the ENT resident preparation department supervisor. ??? During Regular Business Hours (8am-5pm Sunday through Sunday): Dr. Lal (Dionne Radford RN): [phone] Questions: If you have any concerns or [...] pain 15 tablet 04/19/2021 1 PNV with snovbze-bjmx-SU ( VITAMIN PLUS LOW IRON) 27 mg [...] day 1800 mL 04/19/2021 1 influenza quadrivalent [id number] (FLULAVAL,FLUARIX, FLUZONE) 60 mcg (15 mcg x [...] discharge needs arise, please contact the covering child welfare caseworker. * Sean Ward MD - 04/19/2021 6:44 AM CDT Otolaryngology Daily Progress Note Subjective 30 y.o. female that is s/p Procedures: * INCISION AND DRAINAGE - ORAL CAVITY * INCISION AND DRAINAGE - NECK On 04/11/2021 Subsequently underwent extraction of teeth # 1, 3, 4, 16, 17, 18 on 04/15/2021 with [facility] service. Interval: No acute events overnight, afebrile, [...] extraction 04/15/2021. Continuing to do well. Plan: #blanket folder space abscess - Pain control: tylenol, oxy - Airway: turtle mountain - Diet: Soft diet today - Abx: [...] 4, 16, 17, 18 on 04/15/2021 with [facility] service. Objective Past Medical History: Diagnosis Date [...] ??? hydrocortisone ??? HYDROmorphone ??? influenza quadrivalent [id number] ??? ondansetron ODT OR ondansetron ??? oxyCODONE [...] Sounds (All Quadrants): Active Last BM Date: (TELECOMMUNICATION TOWER TECHNICIAN) Last BM Date: (TELECOMMUNICATION TOWER TECHNICIAN) Leeroy Scale Score: 22 Skin Integrity: Surgical [...] (soft) Diet effective now Question Answer Comment ([facility]) Diet type GI Diets Modified Consistency: Dysphagia 3 (soft) 04/17/21 0754 Impression: Pt started po diet 04/17. Tolerating soft foods. Pt could benefit from oral nutritional supplements.Pt had feeding tube removed this morning. NUTRITION DIAGNOSIS Nutrition Diagnosis 1: Inadequate oral intake Related to: Recent surgery Evidenced by: Patient interview INTERVENTION Dysphagia 3 diet. Encouraged pt to work with ski technician if she needs softer foods. Ensure Plus ordered TID ADD: 04/19. GOALS / MONITORING: Goals: Oral intake to meet 75% estimated nutritional needs by next assessment, Diet consistency appropriate for patient needs during stay, Tolerance of medical food supplement by next assessment Interventions: Medical food supplement, Meals and snacks Monitoring and Evaluation: PO intake, Supplement tolerance, Stool patterns [address] [phone] * Sean Ward MD - 04/18/2021 10:47 AM CDT Otolaryngology Daily Progress Note Subjective 30 y.o. female that is s/p Procedures: * INCISION AND DRAINAGE - ORAL CAVITY * INCISION AND DRAINAGE - NECK On 04/11/2021 Subsequently underwent extraction of teeth # 1, 3, 4, 16, 17, 18 on 04/15/2021 with [facility] service. Interval: No acute events overnight, afebrile, [...] extraction 04/15/2021. Continuing to do well. Plan: #blanket folder space abscess - Pain control: tylenol, oxy - Airway: turtle mountain - Diet: Soft diet today - Abx: [...] extraction 04/15/2021. Continuing to do well. Plan: #blanket folder space abscess - Pain control: tylenol, oxy - Airway: turtle mountain - Diet: Soft diet today - Abx: unasyn - DVT ppx: lovenox, SCDs, OOB - continue BID irrigations Meir Almodovar MD Otolaryngology - Head & Neck Surgery Weekends & After 6pm: ENT Consult 04/17/2021 10:32 AM Cosigned by Angel Lal MD at 04/18/2021 3:11 PM CDT * Meir Almodovar MD - 04/16/2021 4:59 PM CDT Otolaryngology Daily Progress Note Subjective 30 y.o. female that is s/p Procedures: * INCISION AND DRAINAGE - ORAL CAVITY * INCISION AND DRAINAGE - NECK On 04/11/2021 Subsequently underwent extraction of teeth # 1, 3, 4, 16, 17, 18 on 04/15/2021 with [facility] service. Interval: No acute events overnight, afebrile, [...] extraction 04/15/2021. Continuing to do well. Plan: #blanket folder space abscess - Pain control: tylenol, oxy - Airway: turtle mountain - Diet: liquids today - Abx: unasyn [...] 98% I/O last 2 completed shifts: In: 1980 [NG/GT:1760; IV Piggyback:220] Out: 0 No intake/output [...] of abscess. Continuing to do well Plan: #blanket folder space abscess - Pain control: tylenol, oxy - Airway: turtle mountain - Diet: NPO, TFs - Abx: unasyn [...] of abscess. Continuing to do well Plan: #blanket folder space abscess - Pain control: tylenol, oxy - Airway: turtle mountain - Diet: NPO, TFs - Abx: unasyn [...] of abscess. Continuing to do well Plan: #blanket folder space abscess - Pain control: tylenol, oxy - Airway: turtle mountain - Diet: NPO, TFs - Abx: unasyn [...] transcervical I&D of abscess. Doing well Plan: #blanket folder space abscess - Pain control: tylenol, oxy - Airway: turtle mountain - Diet: NPO, TFs - Abx: unasyn [...] Assessment Interview Note Information Obtained From: Patient (04/12/21 08) Admission Source: Non Health Care Facility Point [...] Source of Transportation: Mother Health Insurance Coverage: [facility] Prescription Coverage: Yes Pharmacy: [facility] Primary Care Provider: No, Physician Dr Alicia Calderon Prior to Admission: Support System: Parent Support system contact info (name, phone, availablity): Guanako Chatterjee (mother) [phone] Home Care Services: No Durable Medical Equipment: None Living Arrangements: Children Type of Residence: Private residence Steps in home? : Yes, Inside home Number of steps inside:: 15 steps (04/12/21806) Potential discharge needs include: Home Health: [facility] (04/12/21806) Dialysis: n/a Behavioral Health Services: Behavioral Health Services: No (04/12/21806) Patient expects to be Discharged to: Private residence, (04/12/21806) Additional Information: Address and phone number verified with face sheet. Insurance and emergency contact verified with patient/family. Role of CM explanied. Patient does not have a preference for [employer] and a list of agencies was offered [...] Collaboration with patient, MD, direct care nurse, Ceramic Design Engineer, Nurse Coordinator and other members of the health care team to assure needed interventions completed. 2. Return patient to optimal level of self-care post discharge. 3. Investigation Manager will follow for Discharge Planning - interventions [...] in agreement with the aftercare plan. Beverly Linares, JOHNNY * Sean Ward MD - 04/11/2021 7:42 PM CDT Otolaryngology [...] - Pain control: tylenol, oxy - Airway: turtle mountain - Diet: NPO, TFs - Abx: unasyn [...] pain. 60 tablet 0 ??? PNV with axaupnu-dyij-OG ( VITAMIN PLUS LOW IRON) 27 mg [...] a 30 y.o. female Presenting with a blanket folder space abscess. Patient with history of chronic [...] was given unasyn and CT concerning for blanket folder space abscess. The pt is POD 1 [...] Sounds (All Quadrants): Active Last BM Date: (TELECOMMUNICATION TOWER TECHNICIAN) Last BM Date: (TELECOMMUNICATION TOWER TECHNICIAN) Leeroy Scale Score: 21 Skin Integrity: Surgical [...] start tube feeding today. Hold feedings at [place] for OMFS consult tomorrow. NUTRITION DIAGNOSIS Nutrition [...] Labs, Weight changes [address] [phone] * Yohana Taylor MD - 04/11/2021 3:17 AM CDTAssociated Order(s): IP CONSULT TO ENT Otolaryngology - Head & Neck Surgery Consult Attending Physician: Lukasz Reason for Consult: blanket folder space abscess Requesting Team: ED Requesting Provider: Rock Mack Isi Chatterjee is a 30 y.o. female Presenting with a blanket folder space abscess. Patient with history of chronic [...] was given unasyn and CT concerning for blanket folder space abscess. Past Medical History: Diagnosis Date [...] None Assessment/Plan 30 y.o. female with left blanket folder space abscess. CT neck shows a 1.5 [...] Physician Otolaryngology - Head and Neck Surgery [phone] Cosigned by Angel Lal MD at 04/15/2021 4:51 PM CDT documented in this encounter Nursing Notes * Arielle Kendrick RN - 04/11/2021 1:28 PM CDT Patient request to call Guanako Chatterjee, Mother [phone]. Patient requested to contact her PCP Alicia Calderon [phone]. documented in this encounter ED Notes * [...] routine follow-up exam - (Added by TW Kaleb) ??? Preeclampsia Hx of pre eclampsia with [...] BP SpO2 04/10/21 2359 04/10/21 2359 04/10/21 23504/10/21 23504/10/212358 36.8 ??C (98.3 ??F) 80 18 118/87 [...] trismus. By: Alexy Wilkerson MD Time: 04/11 1275 Comment: ENT aware By: Alexy Wilkerson MD Abscess Dental abscess Abscess of blanket folder space of mouth Edison Cooper MD Resident [...] to ED by car as transfer from [facility] for ENT consult due to findings of left blanket folder space abscess. Pt has had left sided [...] ADD: 04/19 Plan & referrals made/in place: [facility] Home Health referral cancelled and [facility] referrals cancelled. Support following discharge: Mother Transportation: [...] discharge needs arise, please contact the covering child welfare caseworker. * Plan of Care - Kaety Méndez RN - 04/18/2021 10:22 AM CDT [...] For weekend assistance,please call the on-call weekend child welfare caseworker @ [phone]. * Plan of Care - Angie Crespo [...] vs Sunday Plan & referrals made/in place: [facility] Home care following for SN wound care and TF. [facility] following for tube feeding supplies and formula [...] discharge needs arise, please contact the covering child welfare caseworker. * Plan of Care - Katey Méndez [...] Patient maintains weight Outcome: Progressing Summary: * Plan of Care - Emma Salcedo RN - 04/13/2021 7:48 [...] will improve Outcome: Progressing * Plan of [place] - Felicitas Lozada RN - 04/13/2021 9:48 [...] Summary: Progressing towards goals. * Plan of [place] - Miracle Barnes RN - 04/13/2021 1:35 [...] home with tube feedings. Referral sent to [facility] for tube feeding supplies and formula * Plan of Care - Miracle Barnes RN - 04/11/2021 11:05 PM CDT Goals: Pain Control .NPO. No falls Summary: Pt progressing toward goals * Op Note - Angel Lal MD - 04/11/2021 10:34 AM CDT DATE OF SURGERY: 04/11/2021 PREOPERATIVE DIAGNOSIS: Left deep blanket folder space odontogenic abscess POSTOPERATIVE DIAGNOSIS: Same PROCEDURE PERFORMED: Transcervical drainage of left deep neck odontogenic abscess ATTENDING SURGEON: Angel Lal MD RETANNER SURGEON: Surgeon(s): Angel Lal MD [place], Scott [...] Resident - Assisting Anesthesiologist: Abhay Henry MD Knot Tier: Kari Pritchard MD City Comptroller: Khadar Campbell Scrub: Sonia Maya RN [place] [...] Results * eGFR (04/13/2021 9:46 PM CDT) [facility] eGFR >90 90 - 130 mL/min/1.7 3 m2 [facility] Comment: Interpretive Data Reference Interval Normal [...] Lal MD LAB BLOOD ORDERABLES Final Result [facility] [place] [address] * Differential, auto (04/13/2021 9:46 PM CDT) Neutrophil abs 4.0 1.7 - 6.5 K/cumm [facility] Imm gran abs 0.0 0.0 - 0.1 K/cumm [facility] Lymphocyte abs 2.3 0.8 - 3.3 K/cumm [facility] Monocyte abs 0.5 0.2 - 0.8 K/cumm [facility] Eosinophil abs 0.1 0.0 - 0.5 K/cumm [facility] Basophil abs 0.0 0.0 - 0.1 K/cumm [facility] Neutrophil pct 58.1 % [facility] Comment: Interpretive Data Percent cell count reference ranges are not reported, since discordance with absolute values may lead to misinterpretation of CBC data. Current Interpretive Data was last revised on 2017. Imm gran pct 0.3 % [facility] Comment: Interpretive Data Percent cell count reference ranges are not reported, since discordance with absolute values may lead to misinterpretation of CBC data. Current Interpretive Data was last revised on 2017. Lymphocyte pct 33.0 % [facility] Comment: Interpretive Data Percent cell count reference ranges are not reported, since discordance with absolute values may lead to misinterpretation of CBC data. Current Interpretive Data was last revised on 2017. Monocyte pct 7.3 % [facility] Comment: Interpretive Data Percent cell count reference ranges are not reported, since discordance with absolute values may lead to misinterpretation of CBC data. Current Interpretive Data was last revised on 2017. Eosinophil pct 1.2 % [facility] Comment: Interpretive Data Percent cell count reference ranges are not reported, since discordance with absolute values may lead to misinterpretation of CBC data. Current Interpretive Data was last revised on 2017. Basophil pct 0.1 % [facility] Comment: Interpretive Data Percent cell count reference ranges are not reported, since discordance with absolute values may lead to misinterpretation of CBC data. Current Interpretive Data was last revised on 2017. Blood 04/13/2021 9:46 PM CDT 04/13/2021 10:39 PM CDT Angel Lal MD LAB BLOOD ORDERABLES Final Result Performing Organization Address City/[facility]/ZIP Co de Phone Number [facility] [place] [address] * Magnesium (04/13/2021 9:46 PM CDT) Magnesium 1.8 1.4 - 2.5 mg/dL [facility] Blood 04/13/2021 9:46 PM CDT 04/13/2021 10:39 PM CDT Result [facility] Angel Lal MD LAB BLOOD ORDERABLES Final Result Performing Organization Address [facility] Co de Phone Number [facility] [place] [address] * Phosphorus (04/13/2021 9:46 PM CDT) Phosphorus, pl 4.1 2.3 - 4.5 mg/dL [facility] Blood 04/13/2021 9:46 PM CDT 04/13/2021 10:39 PM CDT Angel Lal MD LAB BLOOD ORDERABLES Final Result Performing Organization Address City/[facility] Co de Phone Number [facility] [place] [address] * Basic metabolic panel (04/13/2021 9:46 PM CDT) Pathologist [facility] Sodium 140 135 - 145 mmol/L [facility] Potassium, pl 4.5 3.3 - 4.9 mmol/L [facility] Chloride 104 97 - 110 mmol/L [facility] CO2 30 22 - 32 mmol/L [facility] Anion gap 6 2 - 15 mmol/L [facility] BUN 8 8 - 25 mg/dL [facility] Creatinine 0.69 0.60 - 1.10 mg/dL [facility] Glucose 113 70 - 199 mg/dL [facility] Comment: Interpretive Data Fasting glucose >/= [...] 2017. Calcium 9.3 8.5 - 10.3 mg/dL [facility] Blood 04/13/2021 9:46 PM CDT 04/13/2021 10:39 PM CDT Angel Lal MD LAB BLOOD ORDERABLES Final Result [facility] [place] [address] * CBC with auto differential (04/13/2021 9:46 PM CDT) [facility] WBC 6.9 3.8 - 9.9 K/cumm [facility] Hgb 12.2 11.9 - 15.5 g/dL [facility] Hct 37.2 35.6 - 45.5 % [facility] Plt 156 150 - 400 K/cumm [facility] MPV 10.8 9.1 - 12.3 fL [facility] RBC 4.18 3.90 - 5.20 M/cumm [facility] MCV 89.0 81.3 - 96.4 fL [facility] MCH 29.2 27.1 - 33.3 pg [facility] MCHC 32.8 32.3 - 35.7 g/dL [facility] RDW CV 12.3 11.1 - 14.9 % [facility] RDW SD 40.5 35.7 - 48.1 fL [facility] NRBC abs 0.00 0.00 - 0.01 K/cumm [facility] Blood 04/13/2021 9:46 PM CDT 04/13/2021 10:39 PM CDT Angel Lal MD LAB BLOOD ORDERABLES Final Result Performing Organization Address City/State/[facility] Co de Phone Number [facility] [place] [address] * eGFR (04/12/2021 10:01 PM CDT) eGFR >90 90 - 130 mL/min/1.7 3 m2 [facility] Comment: Interpretive Data Reference Interval Normal [...] Lal MD LAB BLOOD ORDERABLES Final Result [facility] [place] [address] * (ABNORMAL) Differential, auto (04/12/2021 10:01 PM CDT) Neutrophil abs 7.4(H) 1.7 - 6.5 K/cumm [facility] Imm gran abs 0.1 0.0 - 0.1 K/cumm [facility] Lymphocyte abs 3.0 0.8 - 3.3 K/cumm [facility] Monocyte abs 0.5 0.2 - 0.8 K/cumm [facility] Eosinophil abs 0.1 0.0 - 0.5 K/cumm [facility] Basophil abs 0.0 0.0 - 0.1 K/cumm [facility] Neutrophil pct 66.5 % [facility] Comment: Interpretive Data Percent cell count reference ranges are not reported, since discordance with absolute values may lead to misinterpretation of CBC data. Current Interpretive Data was last revised on 2017. Imm gran pct 0.5 % [facility] Comment: Interpretive Data Percent cell count reference ranges are not reported, since discordance with absolute values may lead to misinterpretation of CBC data. Current Interpretive Data was last revised on 2017. Lymphocyte pct 27.4 % [facility] Comment: Interpretive Data Percent cell count reference ranges are not reported, since discordance with absolute values may lead to misinterpretation of CBC data. Current Interpretive Data was last revised on 2017. Monocyte pct 4.9 % [facility] Comment: Interpretive Data Percent cell count reference ranges are not reported, since discordance with absolute values may lead to misinterpretation of CBC data. Current Interpretive Data was last revised on 2017. Eosinophil pct 0.5 % [facility] Comment: Interpretive Data Percent cell count reference ranges are not reported, since discordance with absolute values may lead to misinterpretation of CBC data. Current Interpretive Data was last revised on 2017. Basophil pct 0.2 % [facility] Comment: Interpretive Data Percent cell count reference ranges are not reported, since discordance with absolute values may lead to misinterpretation of CBC data. Current Interpretive Data was last revised on 2017. Blood 04/12/2021 10:0 1 PM CDT 04/12/2021 10:34 PM CDT Angel Lal MD LAB BLOOD ORDERABLES Final Result Performing Organization Address City/[facility] Co de Phone Number [facility] [place] [address] * Magnesium (04/12/2021 10:01 PM CDT) Magnesium 1.7 1.4 - 2.5 mg/dL [facility] Blood 04/12/2021 10:0 1 PM CDT 04/12/2021 10:33 PM CDT Angel Lal MD LAB BLOOD ORDERABLES Final Result Performing Organization Address City/[facility] Co de Phone Number [facility] [place] [address] * Phosphorus (04/12/2021 10:01 PM CDT) Phosphorus, pl 2.3 2.3 - 4.5 mg/dL [facility] Blood 04/12/2021 10:0 1 PM CDT 04/12/2021 10:33 PM CDT Angel Lal MD LAB BLOOD ORDERABLES Final Result Performing Organization Address City/[facility] Co de Phone Number [facility] [place] [address] * (ABNORMAL) Basic metabolic panel (04/12/2021 10:01 PM CDT) Pathologist [facility] Sodium 138 135 - 145 mmol/L [facility] Potassium, pl 3.8 3.3 - 4.9 mmol/L [facility] Chloride 100 97 - 110 mmol/L [facility] CO2 28 22 - 32 mmol/L [facility] Anion gap 10 2 - 15 mmol/L [facility] BUN 7(L) 8 - 25 mg/dL [facility] Creatinine 0.72 0.60 - 1.10 mg/dL [facility] Glucose 142 70 - 199 mg/dL [facility] Comment: Interpretive Data Fasting glucose >/= [...] 2017. Calcium 9.0 8.5 - 10.3 mg/dL [facility] Blood 04/12/2021 10:0 1 PM CDT 04/12/2021 10:33 PM CDT us Angel Lal MD LAB BLOOD ORDERABLES Final Result [facility] [place] [address] * (ABNORMAL) CBC with auto differential (04/12/2021 10:01 PM CDT) [facility] WBC 11.1(H) 3.8 - 9.9 K/cumm [facility] Hgb 12.8 11.9 - 15.5 g/dL [facility] Hct 37.5 35.6 - 45.5 % [facility] Plt 158 150 - 400 K/cumm [facility] MPV 10.7 9.1 - 12.3 fL [facility] RBC 4.28 3.90 - 5.20 M/cumm [facility] MCV 87.6 81.3 - 96.4 fL [facility] MCH 29.9 27.1 - 33.3 pg [facility] MCHC 34.1 32.3 - 35.7 g/dL [facility] RDW CV 12.6 11.1 - 14.9 % [facility] RDW SD 40.3 35.7 - 48.1 fL [facility] NRBC abs 0.00 0.00 - 0.01 K/cumm [facility] Blood 04/12/2021 10:0 1 PM CDT 04/12/2021 10:34 PM CDT Angel Lal MD LAB BLOOD ORDERABLES Final Result Performing Organization Address City/State/[facility] Co de Phone Number [facility] [place] [address] * eGFR (04/11/2021 9:59 PM CDT) eGFR >90 90 - 130 mL/min/1.7 3 m2 [facility] Comment: Interpretive Data Reference Interval Normal [...] Lal MD LAB BLOOD ORDERABLES Final Result [facility] [place] [address] * (ABNORMAL) Differential, auto (04/11/2021 9:59 PM CDT) Neutrophil abs 12.6(H) 1.7 - 6.5 K/cumm [facility] Imm gran abs 0.1 0.0 - 0.1 K/cumm [facility] Lymphocyte abs 0.5(L) 0.8 - 3.3 K/cumm [facility] Monocyte abs 0.6 0.2 - 0.8 K/cumm [facility] Eosinophil abs 0.0 0.0 - 0.5 K/cumm [facility] Basophil abs 0.0 0.0 - 0.1 K/cumm [facility] Neutrophil pct 91.9 % [facility] Comment: Interpretive Data Percent cell count reference ranges are not reported, since discordance with absolute values may lead to misinterpretation of CBC data. Current Interpretive Data was last revised on 2017. Imm gran pct 0.4 % [facility] Comment: Interpretive Data Percent cell count reference ranges are not reported, since discordance with absolute values may lead to misinterpretation of CBC data. Current Interpretive Data was last revised on 2017. Lymphocyte pct 3.3 % [facility] Comment: Interpretive Data Percent cell count reference ranges are not reported, since discordance with absolute values may lead to misinterpretation of CBC data. Current Interpretive Data was last revised on 2017. Monocyte pct 4.3 % [facility] Comment: Interpretive Data Percent cell count reference ranges are not reported, since discordance with absolute values may lead to misinterpretation of CBC data. Current Interpretive Data was last revised on 2017. Eosinophil pct 0.0 % [facility] Comment: Interpretive Data Percent cell count reference ranges are not reported, since discordance with absolute values may lead to misinterpretation of CBC data. Current Interpretive Data was last revised on 2017. Basophil pct 0.1 % [facility] Comment: Interpretive Data Percent cell count reference ranges are not reported, since discordance with absolute values may lead to misinterpretation of CBC data. Current Interpretive Data was last revised on 2017. Blood 04/11/2021 9:59 PM CDT 04/11/2021 10:36 PM CDT Angel Lal MD LAB BLOOD ORDERABLES Final Result [facility] [place] [address] * Magnesium (04/11/2021 9:59 PM CDT) Magnesium 1.7 1.4 - 2.5 mg/dL [facility] Blood 04/11/2021 9:59 PM CDT 04/11/2021 10:38 PM CDT Angel Lal MD LAB BLOOD ORDERABLES Final Result Performing Organization Address City/[facility]/ZIP Co de Phone Number [facility] [place] [address] * Phosphorus (04/11/2021 9:59 PM CDT) Phosphorus, pl 3.7 2.3 - 4.5 mg/dL [facility] Blood 04/11/2021 9:59 PM CDT 04/11/2021 10:38 PM CDT nAgel Lal MD LAB BLOOD ORDERABLES Final Result DE[facility]AH [facility] [place] [address] * Basic metabolic panel (04/11/2021 9:59 PM CDT) Sodium 137 135 - 145 mmol/L [facility] Potassium, pl 3.8 3.3 - 4.9 mmol/L [facility] Chloride 100 97 - 110 mmol/L [facility] CO2 27 22 - 32 mmol/L [facility] Anion gap 10 2 - 15 mmol/L [facility] BUN 9 8 - 25 mg/dL [facility] Creatinine 0.70 0.60 - 1.10 mg/dL [facility] Glucose 146 70 - 199 mg/dL [facility] Comment: Interpretive Data Fasting glucose >/= [...] 2017. Calcium 9.3 8.5 - 10.3 mg/dL [facility] Blood 04/11/2021 9:59 PM CDT 04/11/2021 10:38 PM CDT Angel Lal MD LAB BLOOD ORDERABLES Final Result [facility] [place] [address] * (ABNORMAL) CBC with auto differential (04/11/2021 9:59 PM CDT) WBC 13.7(H) 3.8 - 9.9 K/cumm [facility] Hgb 12.9 11.9 - 15.5 g/dL [facility] Hct 38.5 35.6 - 45.5 % [facility] Plt 156 150 - 400 K/cumm [facility] MPV 11.0 9.1 - 12.3 fL [facility] RBC 4.39 3.90 - 5.20 M/cumm [facility] MCV 87.7 81.3 - 96.4 fL [facility] MCH 29.4 27.1 - 33.3 pg [facility] MCHC 33.5 32.3 - 35.7 g/dL [facility] RDW CV 12.6 11.1 - 14.9 % [facility] RDW SD 40.5 35.7 - 48.1 fL [facility] NRBC abs 0.00 0.00 - 0.01 K/cumm [facility] Blood 04/11/2021 9:59 PM CDT 04/11/2021 10:36 PM CDT us Angel Lal MD LAB BLOOD ORDERABLES Final Result [facility] [place] [address] * XR Abdomen Ap 1 Vw (04/11/2021 [...] Gram Positive Cocci Moderate Gram Positive Bacilli [facility] Report Final Report: Moderate Mixed upper respiratory tract microorganisms. (.) [facility] Organism MIXED UPPER RESPIRATORY TRACT MICROORGANISMS. [facility] Abscess (Neck, left) 04/11/2021 10:42 AM CDT 04/11/2021 12:23 PM CDT Narrative [facility] - 04/14/2021 2:36 PM CDT Testing performed by [facility] Microbiology Laboratory ([phone]) Specimens submitted from normally sterile body sites [...] LAB MICROBIOLOGY - GENERAL ORDERABLES Final Result [facility] Department [place] [address] * POCT hCG, urine (04/11/2021 9:33 AM CDT) [facility] HCG, ur, POC Negative Lot Number [id number] QC Backgroud Clear Acceptable QC Control Line Acceptable Urine 04/11/2021 9:33 AM CDT Kari Pritchard MD POINT OF CARE TEST O RDERABLES Final Result * POC Blood Gas and Chemistries, Arterial - (04/11/2021 9:27 AM CDT) [facility] K POC 3.5 3.3 - 4.9 mmol/L [facility] Comment: Interpretive Data Unable to assess hemolysis. ??Invitro hemolysis causes falsely elevated potassium. Current Interpretive Data was last revised on 2020. Blood 04/11/2021 9:27 AM CDT 04/11/2021 9:27 AM CDT Angel Lal MD LAB POCT ORDERABLES - DEVIC E Final Result [facility] [place] [address] * (ABNORMAL) POC Blood Gas and Chemistries, Arterial - (04/11/2021 9:03 AM CDT) [facility] K POC 9.2(C) 3.3 - 4.9 mmol/L [facility] Comment: Interpretive Data Unable to assess hemolysis. ??Invitro hemolysis causes falsely elevated potassium. Current Interpretive Data was last revised on 2020. Hct, POC 41.0 36.3 - 45.3 % [facility] Total Hb, POC 13.5 11.9 - 15.5 g/dL [facility] Blood 04/11/2021 9:03 AM CDT 04/11/2021 9:03 AM CDT Angel Lal MD LAB POCT ORDERABLES - DEVIC E Final Result Performing Organization Address [facility] Co de Phone Number DEJAH WILKERSON [facility] [place] [address] * COVID-19 Coronavirus RNA Nasopharyngeal (04/11/2021 7:48 AM CDT) COVID-19 RNA Negative Negative [facility] Comment: Interpretive data: Synonyms for this test include: PCR and NAAT . ??This test is performed using the [employer] Xpert Xpress assay. This is a real-time [...] August 19, 2020. Employeed in healthcare? No [facility] status? No [facility] Group care resident? No [facility] Hospitalized? No [facility] Is patient in ICU? No [facility] Symptomatic as defined by CDC? No [facility] Nasopharyngeal 04/11/2021 7: 48 AM CDT 04/11/2021 7:56 AM CDT Narrative [facility] - 04/11/2021 8:51 AM CDT What is the reason for testing?->Screening prior to urgent surgery, procedure, BMT, immunosuppressive therapy Hiro Taylor MD LAB MICROBIOLOGY - GENE RAL ORDERABLES Final Result Performing Organization Address [facility] Co de Phone Number DEJAH [facility] [place] [address] documented in this encounter Visit Diagnoses Diagnosis Dental abscess- Primary Periapical abscess without sinus Dental abscess Periapical abscess without sinus Abscess Cellulitis and abscess of unspecified site Abscess of blanket folder space of mouth documented in this encounter Administered Medications Inactive [...] route., Indications: Fever, PainIndications:Fever,Pain acetaminophen (TYLENOL) tablet 1,000 mg 1,000 mg, oral, Once, On Sun04/11/21 at 0102, For 1 dose, Indications: PainIndications:Pain Given 04/11/2021 1:03 AM CDT 1,000 mg acetaminophen (TYLENOL) tablet 650 mg 650 mg, [...] scheduled, First dose on Sun04/14/21 at 1400 Given 04/19/2021 5:00 AM CDT [...] Given 04/16/2021 11:34 AM CDT 0.2 mg HYDROmorphone (DILAUDID) injection 0.4 mg 0.4 mg, intravenous, Administer over 2 Minutes, Every 10 min PRN, 2nd line for pain, Starting on Sun04/11/21 at 1115, Phase I, May administer 10 mintes after 2nd dose of 1st line analgesic agent for uncontrolled or increasing pain. Revert to 1st line dose if POSS of 3. Notify Anesthesiologist if total PACU dose reaches 2 mg and pain score 5/10 or more., Indications: PainIndications:Pain Given 04/11/2021 12:04 PM CDT 0.4 mg Given 04/11/2021 11:46 AM CDT 0.4 mg Given 04/11/2021 11:31 AM CDT 0.4 mg HYDROmorphone (DILAUDID) injection 0.5 mg 0.5 mg, intravenous, Administer over 2 Minutes, Every 4 hours PRN, breakthrough pain, Starting on Sun04/11/21 at 1318 Given 04/13/2021 7:06 AM CDT 0.5 mg Given 04/11/2021 3:48 PM CDT 0.5 mg HYDROmorphone (DILAUDID) injection 0.5 mg 0.5 mg, intravenous, Administer over 2 Minutes, Once, On Sun04/15/21 at 1515, For 1 dose Given 04/15/2021 2:56 PM CDT 0.5 mg influenza quadrivalent [id number] (FLULAVAL,FLUARIX,FLUZONE) 60 mcg (15 mcg x 4)/0.5 mL vaccine (STANDARD age 6 months and up) 0.5 mL 0.5 mL, intramuscular, During hospitalization, immunization, Starting on Sun04/15/21 at 0544, For 1 dose, Indications: influenza vaccinationIndications:influenza vaccination Given 04/19/2021 1:07 PM CDT 0.5 mL Left Deltoid ketorolac (TORADOL) injection 30 mg 30 mg, intravenous, Once, On Sun04/15/21 at 1630, For 1 dose, For Adult IV push, administer over 15 seconds Given 04/15/2021 4:51 PM CDT 30 mg Lactated Ringer's (LR) infusion 30 mL/hr, intravenous, Continuous, Starting on Sun04/11/21 at 1000, Pre-Op New Bag 04/11/2021 9:54 AM CDT morphine injection 4 mg 4 mg, intravenous, Administer over 4 Minutes, Every 2 hours PRN, 1st line for pain, Starting on Sun04/11/21 at 0308 Given 04/14/2021 4:31 AM CDT 4 mg Given 04/14/2021 2:23 AM CDT 4 mg Given 04/13/2021 11:32 PM CDT 4 mg ondansetron (ZOFRAN) injection 4 mg 4 mg, [...] PainIndications:Pain Given 04/19/2021 10:10 AM CDT 5 m g Given 04/19/2021 6:20 AM CDT 5 mg [...] Given 04/15/2021 10:41 AM CDT 10 mL documented in this encounter Discontinued Medications Medication Sig Discontinue Reason Start Date End Da te chlorhexidine (PERIDEX) 0.12 % solutionIndications:[facility] Infection Prevention Apply 15 mL to the [...] Crespo RN)1524 (New Bag - Provider: Angie Crespo RN)2053 (New Bag - Provider: Erika Lucia RN) 0506 (New Bag - Provider: Erika Lucia RN)1038 (New Bag - Provider: Katey Méndez, JOHNNY)1652 (New Bag - Provider: Katey Médnez RN)2121 (New Bag - Provider: Dionne Torres, JOHNNY) 0438 (New Bag - Provider: Dionne Torres, RN)1010 (New Bag - Provider: Katey Ménedz, JOHNNY) chlorhexidine (PERIDEX) 0.12 % solution 15 mL 15 mL, mouth/throat, 4 times daily, First dose on Sun04/11/21 at 1400, Please Educate Patient on Oral Care using Peridex. Thank you!, Indications: Mouth Infection Prevention 0800 (Given - Provider: Angie Crespo RN)1200 (Given - Provider: Angie Crespo RN)1644 (Given - Provider: Angie Crespo, JOHNNY)2053 (Given - Provider: Erika Lucia RN) 0902 (Given - Provider: Katey Méndez RN)1349 (Given - Provider: Katey Méndez RN)1652 (Given - Provider: Katey Méndez RN)212 (Given - Provider: Dionne Torres, RN) 0815 (Given - Provider: Katey Méndez RN)1306 (Given - Provider: Katey Méndez RN) dexAMETHasone (DECADRON) 4 mg/mL injection 8 mg 8 mg, intravenous, Administer over 2 Minutes, Every 8 hours scheduled, First dose on Sun04/14/21 at 1400 0544 (Given - Provider: Erika Lucia RN)1330 (Given - Provider: Angie Crespo, JOHNNY)2053 (Given - Provider: Erika Lucia, JOHNNY) 050 (Given - Provider: Erika Lucia RN)134 (Given - Provider: Katey Méndez RN)2120 (Given - Provider: Dionne Torres RN) 0500 (Given - Provider: Dionne Torres RN)1400 (Due) heparin 5,000 unit/mL injection 5,000 Units 5,000 Units, subcutaneous, Every 8 hours scheduled, First dose on Sun04/11/21 at 1400, Indications: Deep Vein Thrombosis Prevention 0544 (Given - Provider: Erika Lucia RN)1330 (Given - Provider: Angie Crespo, JOHNNY)2052 (Given - Provider: Erika Lucia RN) 050 (Given - Provider: Erika Lucia, JOHNNY)1349 (Given - Provider: Katey Méndez, JOHNNY)2120 (Not Given - Provider: Dionne Torres RN - Reason: Patient/family refused) 0500 (Not Given - Provider: Dionne Torres RN - Reason: Patient/family refused)1400 (Due) sodium chloride 0.9% flush 0.5-20 mL 0.5-20 mL, intra-catheter, Every 8 hours scheduled, First dose on Sun04/11/21 at 1400, Flush volume based on line type and size. 0545 (Given - Provider: Erika Lucia RN)133 (Given - Provider: Angie Crespo, JOHNNY)205 (Given [...] Torres, JOHNNY)0620 (Given - Provider: Dionne Torres, JOHNNY)1010 (Given - Provider: Katey Méndez, JOHNNY) acetaminophen (TYLENOL) suppository 650 mg(Linked Group 1) 650 mg, rectal, Every 4 hours PRN, 1st line for pain, fever, Starting on Sun04/11/21 at 1318, Administer if patient cannot tolerate enteral route., Indications: Fever, Pain 0450 (See Alternative - Provider: Erika Lucia RN)0955 (See Alternative - Provider: Angie Crespo RN)1523 (See Alternative - Provider: Angie Sita Brda, RN)1937 (See Alternative - Provider: Erika Lucia RN) 0506 (See Alternative - Provider: Erika Lucia RN)0902 (See Alternative - Provider: Katey Méndez RN)1652 (See Alternative - Provider: Katey Méndez RN) 0209 (See Alternative - Provider: Dionne Torres, JOHNNY)0620 (See Alternative - Provider: Dionne Torres, RN)1010 (See Alternative - Provider: Katey Méndez RN) acetaminophen (TYLENOL) tablet 650 mg(Linked Group 1) 650 mg, oral, Every 4 hours PRN, 1st line for pain, fever, Starting on Sun04/11/21 at 1318, Administer if patient can swallow tablets., Indications: Fever, Pain 0450 (See Alternative - Provider: Erika Lucia RN)0955 (See Alternative - Provider: Angie Crepso RN)1523 (See Alternative - Provider: Angie Crespo, JOHNNY)1937 (See Alternative - Provider: Erika Lucia RN) [...] at 1357 0438 (Given - Provider: Dionne Torres, JOHNNY) influenza quadrivalent [id number] (FLULAVAL,FLUARIX,FLUZON E) 60 mcg (15 mcg x [...] Angie Crespo RN)1523 (Given - Provider: Angie Crespo RN)1937 (Given - Provider: Erika Lucia RN) 0506 (Given - Provider: Erika Lucia RN)0902 (Given - Provider: Katey Méndez, JOHNNY)1657 (Given - Provider: Katey Méndez, JOHNNY)2306 (Given - Provider: Dionne Torres, JOHNNY) 0209 (Given - Provider: Dionne Torres, JOHNNY)0620 (Given - Provider: Dionne Torres, JOHNNY)1010 (Given - Provider: Katye Méndez RN) sodium chloride 0.9% flush 0.5-20 mL 0.5-20 [...] Ordered Date First Ordered Date acetaminophen (TYLENOL) suppository 650 mg 1 04/11/2021 ampicillin-sulbactam (UNASYN ) 3 g/110 mL in sodium chloride 0.9% (premix) 3 g 1 04/11/2021 enoxaparin (LOVENOX) syringe 40 mg 1 2020 HYDROmorphone (DILAUDID) injection 0.2 mg 1 04/11/2021 Lactated Ringer's (LR) infusion 1 lidocaine-EPINEPHrine (XYLOC LARA with EPI) 1 %-1:200,000 preservative free injection 1 04/11/2021 naloxone (NARCAN) 0.4 mg/mL injection 0.04-0.4 mg 1 04/11/2021 ondansetron (ZOFRAN) injection 4 mg 2 04/11 ondansetron ODT (ZOFRAN-ODT) disintegrating tablet 4 mg 1 04/11/2021 prochlorperazine (COMPAZINE) injection 10 mg 1 04/11/2021 sodium chloride 0.9% flush 0.5-20 mL 1 03/17 sodium chloride 0.9% irrigation 1 Lab Orders Without Results Count Last Ordered D ate First Ordered Date POCT [id number]-HCT,WB - ISTAT 1 04/11/20 21 Nursing Count [...] 04/11/2021 02/10/2021 04/11/2021 06/03/2021 3:0 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
--- OUTSIDE RECORDS SUMMARY | 2024-07-28 06:40 | XMS_ITS | Encounter Summary ---
Author Organization [facility] Healthcare Address [address] [place] [address] Care Team Providers Care Controller [employer] Name Role Phone No, Physician Primary Care Provider [phone] Encounter Details Date Type Department Care Team (Late st Contact Info) Description 05/22/2018 Orders Only [facility] [address] 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 60 tablet 5 05/22/2018 05/19/2021 documented in this encounter Plan of Treatment Not on file documented as of this encounter Visit Diagnoses Diagnosis Iron deficiency anemia, unspecified iron deficiency anemia type- Primary documented in this encounter Care Teams Controller [employer] Relationship Specialty Start Date End Date No, Physician PCP - General 12/03/17 01/03/23 documented as of this encounter
--- OUTSIDE RECORDS SUMMARY | 2024-07-28 06:40 | XMS_ITS | Encounter Summary ---
Author Organization [facility] Healthcare Address [address] [place] [address] Care Team Providers Care Radiation Therapy Technician Name Role Phone No, Physician Primary Care Provider [phone] Reason for Visit * Reason Comments Routine Visit Encounter Details Date Type Department Care Team (Late st Contact Info) Description 05/21/2018 2:30 PM SPECIAL EFFECTS MAKEUP ARTIST Office Visit Obstetrics and Gynecology Clinic [address] 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; Pedal edema Social History Tobacco Use Types Packs/Day Years Used Date Smoking Tobacco: Never Smokeless Tobacco: Never Comments Yes Sex and Gender Information Value Date Recorded Sex Assigned at Not on file Legal Sex Female 1:19 AM SPECIAL EFFECTS MAKEUP ARTIST Gender Identity Not on file Sexual Orientation Not on file documented as of this encounter Last Filed Vital Signs Vital Sign Reading Time Taken Comments Blood Pressure 114/64 05/21/2018 2:56 PM SPECIAL EFFECTS MAKEUP ARTIST Pulse - - Temperature - - Respiratory Rate - - Oxygen Saturation - - Inhaled Oxygen Concentration - - Weight 89 kg (196 lb 1.6 oz) 05/21/2018 2:56 PM SPECIAL EFFECTS MAKEUP ARTIST Height - - Body Mass Index 32.63 03/26/2018 2:42 PM CDT documented in this encounter Patient Instructions * Patient Instructions* Klarissa Regan, FOREST FIRE OFFICER - 05/21/2018 2:30 PM SPECIAL EFFECTS MAKEUP ARTIST Contact us Office hours: Sunday-Sunday 8:30 AM-4:30 PM Phone number: [phone] Daytime: Call us if you have questions [...] medical problem, you can call us at [phone]. Please wait until the clinic is open for non-urgent needs as this emergency line cannot help with appointments, paperwork or prescriptions. If you have an emergency and cannot wait, please call 911 or go to the [facility] Emergency room. If you are having a problem with your or are in labor you can [facility] (check in near elevator on first floor) [address] [facility], 5th [place] [address]. Patient Education Kick Counts in HUMANITIES COORDINATOR: Kick counts measure how much your baby [...] ask them during your visits. ?? 2017 [employer] Information is for End User's use only and may not be sold, redistributed or otherwise used for commercial purposes. All illustrations and images included in CareNotes?? are the copyrighted property of [employer], [employer]. or [employer]. The above information is an paraprofessional aide teacher only. It is not intended as medical [...] refuse treatment. The above information is an paraprofessional aide teacher only. It is not intended as medical advice for individual conditions or treatments. Talk to your doctor, nurse or pharmacist before following any medical regimen to see if it is safe and effective for you. ?? 2016 [employer]. Information is for End User's use only and may not be sold, redistributed or otherwise used for commercial purposes. All illustrations and images included in CareNotes?? are the copyrighted property of [employer]. or [employer]. IAL EFFECTS MAKEUP ARTIST documented in this encounter Ordered Prescriptions Prescription Sig Dispense Quantity Refills Last Filled Start Date End Date fluconazole (DIFLUCAN) 150 mg tabletIndications: Vaginal candidiasis Take 1 tablet (150 mg total) by mouth once for 1 dose. Repeat in 3 days if symptoms persist. 2 tablet 05/21/2018 8 documented in this encounter Progress Notes * Klarissa Regan NP - 05/21/2018 2:30 PM CST Subjective Pt presents today for routine visit. Denies VB and endorses frequent movement. C/o runny discharge and vaginal itching x2 days. Also having infrequent Cooke-Hick's ctx. C/o bilateralpedal edema due to standing at work all day, feels she would like to begin leave. States she stopped her low-dose ASA at 36 weeks, continuing to take daily PNV. Has car seat and ped. Objective See ACOG VE: Cervix appears closed; no e/o pooling, no LOF with valsalva; Fern test neg, pH: 3.0; numerous hyphae present Problem List 36 weeks gestation of - Primary Overview labs UTD- 3T labs obtained Tdap declined Continue daily PNV Reviewed FKCs and s/s of PTL; warning signs of PreE Has car seat and ped Discussed FMLA papers MOD: anticipates MOF: bottle MOC: Reviewed options; considering Liletta RTC in 1 week Female fetus Relevant Orders Group B streptococcal culture Vaginal/Rectal HIV-1 and HIV-2 antibody with P24 antigen immunoassay N. gonorrhoeae/C. 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 No need for additional testing. Vaginal candidiasis Overview Rx sent for fluconazole Notify provider if no improvement in sx with tx Relevant Medications fluconazole (DIFLUCAN) 150 mg tablet Pedal edema Overview Recommend elevation of legs when possible and increased fluids Warning signs of PrE reviewed IAL EFFECTS MAKEUP ARTIST documented in this encounter Plan of Treatment Not on file documented as of this encounter Procedures Procedure Name Priority Date/Time Associated Diagnosis Comments HIV 1/2 ANTIBODY PLUS P24 ANTIGEN Routine 05/21/2018 3:54 PM SPECIAL EFFECTS MAKEUP ARTIST 36 weeks gestation of RPR Routine 05/21/2018 3:54 PM SPECIAL EFFECTS MAKEUP ARTIST 36 weeks gestation of CBC WITHOUT DIFFERENTIAL Routine 05/21/2018 3:54 PM SPECIAL EFFECTS MAKEUP ARTIST 36 weeks gestation of POCT URINALYSIS DIPSTICK Routine 05/21/2018 3:30 PM SPECIAL EFFECTS MAKEUP ARTIST Encounter for supervision of normal in third trimester, unspecified documented in this encounter Results * Drug screen, urine (06/03/2018 7:25 PM SPECIAL EFFECTS MAKEUP ARTIST) Amphetamines, Class None detected [facility] Comment: Interpretive Data Immunoassay Screen cutoff level [...] last revised 2018. Benzodiazepines, ur None detected [facility] Comment: Interpretive [...] revised 2015. Oxycodone, ur None detected [facility] Comment: Interpretive Data Immunoassay Screen cutoff level 100 ng/mL. ??Samples containing greater than 100 ng/mL of oxycodone or other cross-reacting substances are reported as presumptive and submitted for confirmatory testing. ??See separate confirmatory results for final interpretation. ??Results are to be used for medical purposes only. Current interpretive data was last revised on 2015. Phencyclidine, ur None detected [facility] Comment: Interpretive Data Immunoassay Screen cutoff level 25 ng/mL. Samples containing greater than 25 ng/mL of phencyclidine (PCP) or other cross-reacting substances are reported as presumptive and submitted for confirmatory testing. ??See separate confirmatory results for final interpretation. Results are to be used for medical purposes only. ? Current interpretive data was last revised 2015. Urine 06/03/2018 7:25 PM SPECIAL EFFECTS MAKEUP ARTIST 06/03/2018 8:05 PM SPECIAL EFFECTS MAKEUP ARTIST Narrative [facility] - 06/03/2018 9:02 PM SPECIAL EFFECTS MAKEUP ARTIST Klarissa Regan FOREST FIRE OFFICER LAB URINE ORDERABLES Final Result [facility] [place] [address] * N. gonorrhoeae/C. trachomatis amplification test Endocervical (05/21/2018 5:44 PM SPECIAL EFFECTS MAKEUP ARTIST) Report Final Report: Negative for: ??Chlamydia trachomatis rRNA Negative for: ??Neisseria gonorrhoeae rRNA [facility] Endocervical 05/21/2018 5:44 PM SPECIAL EFFECTS MAKEUP ARTIST 05/21/2018 5:47 PM SPECIAL EFFECTS MAKEUP ARTIST Narrative [facility] - 05/23/2018 7:52 AM SPECIAL EFFECTS MAKEUP ARTIST Testing performed by the Gen-Probe [employer] APTIMA Combo 2 Assay. This nucleic acid amplification test (NAAT) detects ribosomal RNA (rRNA) from Chlamydia trachomatis and Neisseria gonorrhoeae using target capture,and Power Transformer Repair Supervisor-Mediated Amplification (TMA). This test is approved by the [place] Food and Drug Administration for endocervical, vaginal, and male urethral swab specimens, in addition to male and female urine specimens. The performance characteristics for these specimen types have been verified by the [facility].The performance characteristics of this assay for pharyngeal and rectal specimens collected from cervical swab collection devices have been validated and verified by the [facility]. Verification studies support a lack of cross reactivity with other Neisseria species considered normal oropharyngeal bacterial dior. Rectal swab specimens containing excess stool may be inhibitory and result in false negatives for Chlamydia trachomatis or Neisseria gonorrhoeae. The performance characteristics of this test have not been evaluated in women or individuals less than 16 years of age. us Klarissa Regan NP LAB MICROBIOLOGY - GENERAL ORDERABLES Final Result [facility] Department [place] [email or web address] [address] * Group B streptococcal culture Vaginal/Rectal (05/21/2018 5:44 PM SPECIAL EFFECTS MAKEUP ARTIST) Report Final Report: Negative [facility] Vaginal/Rectal 05/21/2018 5: 44 PM SPECIAL EFFECTS MAKEUP ARTIST 05/21/2018 5:48 PM SPECIAL EFFECTS MAKEUP ARTIST Narrative [facility] - 05/24/2018 10:33 AM SPECIAL EFFECTS MAKEUP ARTIST Specimen received on an ESwab. Testing performed by [facility] ([phone]). us Klarissa Regan NP LAB MICROBIOLOGY - GENERAL ORDERABLES Final Result [facility] [email or web address] [address] * (ABNORMAL) CBC without differential (05/21/2018 3:54 PM SPECIAL EFFECTS MAKEUP ARTIST) Pathologist [facility] WBC 9.3 3.8 - 9.9 K/cumm [facility] Hgb 10.1(L) 11.9 - 15.5 g/dL [facility] Hct 31.7(L) 35.6 - 45.5 % [facility] Plt 125(L) 150 - 400 K/cumm [facility] MPV 11.3 9.1 - 12.3 fL [facility] RBC 3.91 3.90 - 5.20 M/cumm [facility] MCV 81.1(L) 81.3 - 96.4 fL [facility] MCH 25.8(L) 27.1 - 33.3 pg [facility] MCHC 31.9(L) 32.3 - 35.7 g/dL [facility] RDW CV 14.5 11.1 - 14.9 % [facility] RDW SD 42.1 35.7 - 48.1 fL [facility] NRBC abs 0.00 0.00 - 0.01 K/cumm [facility] Blood specimen (specimen) 05/21/2018 3:54 PM SPECIAL EFFECTS MAKEUP ARTIST 05/21/2018 4:22 PM SPECIAL EFFECTS MAKEUP ARTIST Narrative [facility] - 05/21/2018 4:32 PM SPECIAL EFFECTS MAKEUP ARTIST Klarissa Regan FOREST FIRE OFFICER LAB BLOOD ORDERABLES Final Result [facility] Department [place] [address] * RPR, serum (05/21/2018 3:54 PM SPECIAL EFFECTS MAKEUP ARTIST) Pathologist [facility] RPR Nonreactive Nonreactive [facility] Blood specimen (specimen) 05/21/2018 3:54 PM SPECIAL EFFECTS MAKEUP ARTIST 05/21/2018 4:22 PM SPECIAL EFFECTS MAKEUP ARTIST Narrative [facility] - 05/21/2018 5:57 PM SPECIAL EFFECTS MAKEUP ARTIST Klarissa Regan NP LAB MICROBIOLOGY - GENERAL ORDERABLES Final Result Performing Organization Address City/[facility]/[place] [address] * HIV-1 and HIV-2 antibody with P24 antigen immunoassay (05/21/2018 3:54 PM SPECIAL EFFECTS MAKEUP ARTIST) Pathologist [facility] HIV 1/2 ab + p24 ag Nonreactive Nonreactive [facility] Comment:Negative for HIV-1 a ntigen and HIV-1/ HIV-2 antibodies. No laboratory evidence of HIV infection. If acute HIV infection is suspected, consider testing for HIV-1 RNA. Blood specimen (specimen) 05/21/2018 3:54 PM SPECIAL EFFECTS MAKEUP ARTIST 05/21/2018 4:21 PM SPECIAL EFFECTS MAKEUP ARTIST Narrative [facility] - 05/21/2018 5:34 PM SPECIAL EFFECTS MAKEUP ARTIST Klarissa Regan NP LAB MICROBIOLOGY - GENERAL ORDERABLES Final Result Performing Organization Address [facility] Co de Phone Number [facility] [place] [address] * (ABNORMAL) POCT urinalysis dipstick (05/21/2018 3:30 PM SPECIAL EFFECTS MAKEUP ARTIST) [facility] Glucose, ur, POC Negative Negative mg/dL Bilirubin, ur, POC Negative Negative Ketones, ur, POC Negative Negative Blood, ur, POC Negative Negative Protein, ur, POC Trace(A) Negative Nitrite, ur, POC Negative Negative Leukocytes, ur, POC Negative Negative Lot Number [id number] Urine 05/21/2018 3:30 PM SPECIAL EFFECTS MAKEUP ARTIST Klarissa Regan NP POINT OF CARE TEST ORDERAB LES Final Result documented in this encounter Visit Diagnoses Diagnosis 36 weeks gestation of - Primary Encounter for supervision of normal in third trimester, unspecified Vaginal candidiasis Candidiasis of vulva and vagina Marginal insertion of umbilical cord affecting management of mother History of gHTN with prior History of marijuana use 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
--- OUTSIDE RECORDS SUMMARY | 2024-07-28 06:40 | XMS_ITS | Encounter Summary ---
Author Organization [facility] Healthcare Address [address] [place] [address] Care Team Providers Care Felt Coverer Name Role Phone No, Physician Primary Care Provider [phone] Reason for Referral * Diagnostic Imaging (Routine) - Closed Specialty Diagnoses / Procedures Referred By Albaro t Referred To Contact Diagnoses Marginal insertion of umbilical cord affecting management of mother Procedures US Ob Follow Up Klarissa Regan NP Phone: tel: fax: [facility] (All Locations) Referral ID Status Reason Start Date Expiration Date Visits Re quested Visits Authorized [id number] Closed 04/17/2018 10/27/2019 1 1 Reason for Visit * Reason Comments Routine Visit Encounter Details Date Type Department Care Team (Late st Contact Info) Description 04/17/2018 2:45 PM CDT Office Visit Obstetrics and Gynecology Clinic [address] 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 (Primary Dx); Encounter for supervision of other normal in third trimester; Marginal insertion of umbilical cord affecting management of mother; 31 weeks gestation of ; History of gHTN with prior ; History of marijuana use Social History Tobacco Use Types Packs/Day Years Used Date Smoking Tobacco: Never Smokeless Tobacco: Never Comments Yes Sex and Gender Information Value Date Recorded Sex Assigned at Not on file Legal Sex Female 1:19 AM GOLD PLATER Gender Identity Not on file Sexual Orientation Not on file documented as of this encounter Last Filed Vital Signs Vital Sign Reading Time Taken Comments Blood Pressure 112/66 04/17/2018 4:21 PM CDT Pulse - - Temperature - - Respiratory Rate - - Oxygen Saturation - - Inhaled Oxygen Concentration - - Weight 81.9 kg (180 lb 9.6 oz) 04/17/2018 4:21 P M CDT Height - - Body Mass Index 30.05 03/26/2018 2:42 PM CDT documented in this encounter Patient Instructions * Patient Instructions* Klarissa Regan, EVELYN - 04/17/2018 2:45 PM CDT Contact us Office hours: Sunday-Sunday 8:30 AM-4:30 PM Phone number: [phone] Daytime: Call us if you have questions [...] medical problem, you can call us at [phone]. Please wait until the clinic is open for non-urgent needs as this emergency line cannot help with appointments, paperwork or prescriptions. If you have an emergency and cannot wait, please call 911 or go to the [facility] Emergency room. If you are having a problem with your or are in labor you can go to the [facility] (check in near elevator on first floor) [address] [facility], 5th [place] [address]. Patient Education Kick Counts in MILL OPERATOR HEAD: Kick counts measure how much your baby [...] ask them during your visits. ?? 2017 [employer] Information is for End User's use only and may not be sold, redistributed or otherwise used for commercial purposes. All illustrations and images included in CareNotes?? are the copyrighted property of [employer], [employer]. or [employer]. The above information is an housemaid only. It is not intended as medical advice for individual conditions or treatments. Talk to your doctor, nurse or pharmacist before following any medical regimen to see if it is safe and effective for you. Patient Education at 31 to 34 Weeks WHAT YOU NEED TO KNOW: What changes are happening in my body? You may continue to have symptoms such as shortness of breath, heartburn, contractions, or swelling of your ankles and feet. You may be gaining about 1 pound a week now. How do I care for myself at [...] changes are happening with my baby? By 34 weeks, your baby may weigh more than 5 pounds. Your baby will be about 12 ?? inches long from the top of the head to the rump (baby's bottom). Your babyis gaining about ?? pound a week. Your baby's eyes open and close now. [...] and other organs. ?? A Tdap vaccine may be recommended by your healthcare provider. ?? Fundal height is a measurement of [...] refuse treatment. The above information is an housemaid only. It is not intended as medical advice for individual conditions or treatments. Talk to your doctor, nurse or pharmacist before following any medical regimen to see if it is safe and effective for you. ?? 2016 [employer] Information is for End User's use only and may not be sold, redistributed or otherwise used for commercial purposes. All illustrations and images included in CareNotes?? are the copyrighted property of [employer]. or [employer]. documented in this encounter Progress Notes * Klarissa Regan NP - 04/17/2018 2:45 PM CDT Subjective Pt presents today for routine care. Denies VB, LOF, or ctx and endorses frequent movement. Taking daily PNV and low-dose ASA. N/V has resolved but continuing to spit. 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 - Primary Overview Reviewed results with pt Discussed nasal [...] Follow-up u/s for growth scheduled 1 week Relevant Orders US Ob Follow Up documented in this encounter Plan of Treatment Not on file documented as of this encounter Procedures Procedure Name Priority Date/Time Associated Diagnosis Comments POCT URINALYSIS DIPSTICK Routine 04/17/2018 4:36 PM CDT Encounter for supervision of other normal in third trimester documented in this encounter Results * US Ob Follow Up (05/16/2018 1:31 PM CDT) Placenta Details posterior, Previa-no, no placental masses VIEWPOINT Estimated Weight 2,415 g&grams VIEWPOINT Presentation Vertex VIEWPOINT Fetus# Fetus1 VIEWPOINT Anatomical Region Laterality Modality Abdomen N/A Ultrasound 05/16/2018 1:33 PM CDT us Klarissa Regan TRANSLATOR IMG OB US PROCEDURES Final Result * (ABNORMAL) POCT urinalysis dipstick (04/17/2018 4:36 PM CDT) Glucose, ur, POC Negative Negative mg/dL Ketones, ur, POC Negative Negative Blood, ur, POC Negative Negative Protein, ur, POC Trace(A) Negative Nitrite, ur, POC Negative Negative Lot Number [id number] Urine 04/17/2018 4:36 PM CDT Klarissa Regan TRANSLATOR POINT OF CARE TEST ORDERAB LES Final Result documented in this encounter Visit Diagnoses Diagnosis 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
--- OUTSIDE RECORDS SUMMARY | 2024-07-28 06:40 | XMS_ITS | Encounter Summary ---
Author Organization [facility] Healthcare Address [address] [place] [address] Care Team Providers Care Network Systems Analyst Name Role Phone No, Physician Primary Care Provider [phone] Reason for Visit * Diagnostic Imaging (Routine) - Closed Specialty Diagnoses / Procedures Referred By Albaro t Referred To Contact Diagnoses Marginal insertion of umbilical cord affecting management of mother Procedures US Ob Follow Up Klarissa Regan NP Phone: tel: fax: [facility] (All Locations) Referral ID Status Reason Start Date Expiration Date Visits Re quested Visits Authorized [id number] Closed 04/17/2018 10/27/2019 1 1 Encounter Details Date Type Department Care Team (Latest Contact Info) Description 05/16/2018 1:15 PM CDT Ancillary Procedure [facility] Outpatient Health - Ultrasound [address] 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 [employer] Gender Identity Not on file Sexual Orientation Not on file documented as of this encounter Plan of Treatment Not on file documented as of this encounter Procedures Procedure Name Priority Date/Time Associated Diagnosis Comments US OB FOLLOW UP Schedule Routine, Read Routine (OP Routine) 05/16/2018 1:31 PM CDT Marginal insertion of umbilical cord affecting management of mother documented in this encounter Results * US Ob Follow Up (05/16/2018 1:31 PM CDT) Placenta Details posterior, Previa-no, no placental masses VIEWPOINT Estimated Weight 2,415 g&grams VIEWPOINT Presentation Vertex VIEWPOINT Fetus# Fetus1 VIEWPOINT Anatomical Region Laterality Modality Abdomen N/A Ultrasound 05/16/2018 1:33 PM CDT us Klarissa Regan LEAD MINER IMG OB US PROCEDURES Final Result documented in this encounter Visit Diagnoses Diagnosis Marginal insertion of umbilical cord affecting management of mother documented in this encounter Care Teams Network Systems Analyst Relationship Specialty Start Date End Date No, Physician PCP - General 12/03/17 01/03/23 documented as of this encounter
--- OUTSIDE RECORDS SUMMARY | 2024-07-28 06:41 | XMS_ITS | Encounter Summary ---
Author Organization [facility] Facility Care Team Providers Care Health Safety Manager Name Role Phone Unavailable Primary Care Provider Unavailabl e Encounter Details Date Type Department Care Team (Late st Contact Info) Description 06/18/2013 10:23 AM REFERRAL COORDINATOR - 06/18/2013 4:00 PM REFERRAL COORDINATOR Hospital Encounter [facility] Tone Ascencio MD [address] [facility] [address] [phone] [place] [address] Gynecology Encounter for supervision of normal in multigravida Social History Tobacco Use Types Packs/Day Years Used Date Smoking Tobacco: Never Assessed Comments Unknown Sex and Gender Information Value Date Recorded Sex Assigned at Not on file Legal Sex Female 1:19 AM REFERRAL COORDINATOR Gender Identity Not on file Sexual Orientation Not on file documented as of this encounter Plan of Treatment Not on file documented as of this encounter Visit Diagnoses Diagnosis Encounter for supervision of normal in multigravida documented in this encounter
--- OUTSIDE RECORDS SUMMARY | 2024-07-28 06:41 | XMS_ITS | Encounter Summary ---
Author Organization [facility] Facility Care Team Providers Care Freight Car Loader Name Role Phone Unavailable Primary Care Provider Unavailabl e Encounter Details Date Type Department Care Team (Late st Contact Info) Description 01/09/2013 9:20 AM CDT - 01/09/2013 4:00 PM CDT Hospital Encounter [facility] Tone Ascencio MD [address] [phone] [place] [address] Gynecology Other specified screening; Screening for malignant neoplasm of cervix; Screening examination for sexually transmitted disease; Special screening examination for other specified chlamydial diseases Social History Tobacco Use Types Packs/Day Years Used Date Smoking Tobacco: Never Assessed Comments Unknown Sex and Gender Information Value Date Recorded Sex Assigned at Not on file Legal Sex Female 1:19 AM QUALITY ASS[employer]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 GONORRHOEAE, CHLAMYDIA TRACHOMATIS AMPLIFICATION TEST, CDR Routine 01/09/2013 2:00 PM CDT URINALYSIS Routine 01/09/2013 1:10 PM CDT ALL MICROBIOLOGY REPORT SECTION Routine 01/09/2013 12:00 AM CDT DISCHARGE LABORATORY CUMULATIVE REPORT Routine 01/09/2013 12:00 AM CDT documented in this encounter Results * Neisseria gonorrhoeae, Chlamydia trachomatis amplification test (01/09/2013 2:00 PM CDT) Endocervical (Unknown) 01/09/2013 2:00 PM CDT 01/09/2013 2:04 PM CDT Impressions HISTORICAL RESULTS - 01/10/2013 11:17 AM CDT Testing performed by the Gen-Probe [employer] APTIMA Combo 2 Assay. ??This nucleic acid amplification test (NAAT) detects ribosomal RNA (rRNA) from Chlamydia trachomatis and Neisseria gonorrhoeae using target capture, and Glass Washer And Carrier-Mediated Amplification (TMA). Current interpretive data was last revised on 2010. Narrative HISTORICAL RESULTS - 01/10/2013 11:17 AM CDT Negative for: ??Chlamydia trachomatis rRNA Negative for: ??Neisseria gonorrhoeae rRNA Historical Provider LAB MICROBIOLOGY - GENERA L ORDERABLES Final Result Performing Organization Address [facility] de Phone Number HISTORICAL RESULTS * Urinalysis (01/09/2013 1:10 PM CDT) Color, ur Yellow Yellow HISTORICAL RESULTS Clarity, ur Clear Clear HISTORIC AL RESULTS Specific gravity, ur 1.023 1.003 - 1.030 HISTORICAL RESULTS pH, ur 7.0 5.0 - 8.0 HISTORICAL RESULTS Protein, ur Trace Trace HISTORIC AL RESULTS Glucose, ur Negative Negative HISTORIC AL RESULTS Ketones, ur Negative Negative HISTORIC AL RESULTS Bilirubin, ur Negative Negative HISTOR ICAL RESULTS U Blood Negative Negative HISTORICAL RESULTS Urobilinogen, quant, ur 2.0 0.0 - 2.0 mg/dl HISTORICAL RESULTS Nitrites, ur Negative Negative HISTORI RACHEL RESULTS Leukocyte esterase, ur Negative Negative HISTORICAL RESULTS Urine 01/09/2013 1:10 PM CDT us Historical Provider LAB BLOOD ORDERABLES Destinee l Result Performing Organization Address [facility] Co de Phone Number HISTORICAL RESULTS * All Microbiology Report Section (01/09/2013 12:00 AM CDT) 01/09/2013 Narrative HISTORICAL RESULTS - 01/10/2013 1:18 PM CDT ? [facility] ?[facility] [place] ?[place], [facility] [address] ? Patient Name: ??NGUYEN CHATTERJEE ? Med Rec Number: [id number] ? Fin Number: ?[id number] ? Date: ?1990 ? Sex/Age: ? Female 22 years ? Admit Date: ?01/09/2013 ? Discharge Date: 01/09/2013 ? Doctor: ?Gynecology, Resident ? Facility: ?[facility] ? Location: ?CLOG ?* Abnormal ??A Alert ??f Footnote ??^ Corrected ??L Low ??H High ?i Interp Data ??@ Ref Lab ? Chart Type:Cumulative ?* * * * MICROBIOLOGY - GENITAL * * * * ?PROCEDURE: N. gonorrhoeae/C. trachomatis Amplification Test ? SOURCE: Endocervical ? COLLECTED: 06/27/13 ??1400 ?BODY SITE: ? STARTED: 01/09/13 ??1405 ? FREE TEXT SOURCE: ? FINAL REPORT ? REPORTED: 01/10/13 1117 ? Negative for: ??Chlamydia trachomatis rRNA Negative for: ? Neisseria gonorrhoeae rRNA ?* * * ??Interpretive Results ??* * * ? (1)Testing performed by the Gen-Probe [employer]ris APTIMA Combo 2 Assay. ? This nucleic acid amplification test (NAAT) detects ribosomal ? RNA (rRNA) from Chlamydia trachomatis and Neisseria gonorrhoeae ? using target capture, and Glass Washer And Carrier-Mediated Amplification ? (TMA).Current interpretive data was last revised on 2010. ? us Historical Provider LAB MICROBIOLOGY - GENERA L ORDERABLES Final Result HISTORICAL RESULTS * Discharge Laboratory Cumulative Report (01/09/2013 12:00 AM CDT) 01/09/2013 Narrative HISTORICAL RESULTS - 01/10/2013 3:30 PM CDT ?[facility] ?Department of Laboratories ? [facility] [place] ? [place] [address] Patient Name: ??NGUYEN CHATTERJEE [facility] Rec Number: [id number] Fin Number: ?[id number] Date: ?1990 Sex/Age: ? Female 22 years Admit Date: ?01/09/2013 Discharge Date: 01/09/2013 Doctor: ?Gynecology, Resident Facility: ?[facility] Location: ?CLOG Chart Printed: 01/10/2013 15:30 ?? * Abnormal ?? C Critical ?? f Footnote ?? ^ Corrected ?? L Low ?? H High ? i Interp Data ?? @ Reference Lab ? Chart Type:Periodic ? MICROBIOLOGY - ALL TESTS ? PROCEDURE: N. gonorrhoeae/C. trachomatis Amplification Test ?SOURCE: Endocervical COLLECTED: 01/09/13 ??1400 ? BODY SITE: STARTED: 01/09/13 ??1405 FREE TEXT SOURCE: FINAL REPORT REPORTED: 01/10/13 1117 Negative for: ??Chlamydia trachomatis rRNA Negative for: Neisseria gonorrhoeae rRNA * * * ??Interpretive Results ??* * * (1)Testing performed by the [employer] APTIMA Combo 2 Assay. This nucleic acid amplification test (NAAT) detects ribosomal RNA (rRNA) from Chlamydia trachomatis and Neisseria gonorrhoeae using target capture, and Glass Washer And Carrier-Mediated Amplification (TMA).Current interpretive data was last revised on 2010. ? MICROBIOLOGY - GENITAL ? PROCEDURE: N. gonorrhoeae/C. trachomatis Amplification Test ?SOURCE: Endocervical COLLECTED: 01/09/13 ??1400 ? BODY SITE: STARTED: 01/09/13 ??1405 FREE TEXT SOURCE: FINAL REPORT REPORTED: 01/10/13 1117 Negative for: ??Chlamydia trachomatis rRNA Negative for: Neisseria gonorrhoeae rRNA * * * ??Interpretive Results ??* * * (1)Testing performed by the Gen-Probe [employer] APTIMA Combo 2 Assay. This nucleic acid amplification test (NAAT) detects ribosomal RNA (rRNA) from Chlamydia trachomatis and Neisseria gonorrhoeae using target capture, and Glass Washer And Carrier-Mediated Amplification (TMA).Current interpretive data was last revised on 2010. us Historical Provider LAB BLOOD ORDERABLES Destinee mckeon Result HISTORICAL RESULTS documented in this encounter Visit Diagnoses Diagnosis Other specified screening Screening for malignant neoplasm of cervix Screening for malignant neoplasm of the cervix Screening examination for sexually transmitted disease Special screening examination for other specified chlamydial diseases documented in this encounter
--- OUTSIDE RECORDS SUMMARY | 2024-07-28 06:41 | XMS_ITS | Encounter Summary ---
Author Organization [facility] Facility Care Team Providers Care Paper Reel Operator Name Role Phone Unavailable Primary Care Provider Unavailabl e Encounter Details Date Type Department Care Team (Late st Contact Info) Description 04/09/2013 1:33 PM CDT - 04/09/2013 4:00 PM CDT Hospital Encounter [facility] Tone Ascencio MD [address] [phone] [place] [address] Gynecology Encounter for supervision of normal in multigravida Social History Tobacco Use Types Packs/Day Years Used Date Smoking Tobacco: Never Assessed Comments Unknown Sex and Gender Information Value Date Recorded Sex Assigned at Not on file Legal Sex Female 1:19 AM GRAIN UNLOADER Gender Identity Not on file Sexual Orientation Not on file documented as of this encounter Plan of Treatment Not on file documented as of this encounter Visit Diagnoses Diagnosis Encounter for supervision of normal in multigravida documented in this encounter
--- OUTSIDE RECORDS SUMMARY | 2024-07-28 06:41 | XMS_ITS | Encounter Summary ---
Author Organization [facility] Facility Care Team Providers Care Cryptographic Technician Name Role Phone Unavailable Primary Care Provider Unavailabl e Encounter Details Date Type Department Care Team (Late st Contact Info) Description 06/04/2013 1:06 PM DIVINE HEALER - 06/04/2013 4:00 PM DIVINE HEALER Hospital Encounter [facility] Tone Ascencio MD [address] [phone] [place] [address] Gynecology Encounter for supervision of normal in multigravida Social History Tobacco Use Types Packs/Day Years Used Date Smoking Tobacco: Never Assessed Comments Unknown Sex and Gender Information Value Date Recorded Sex Assigned at Not on file Legal Sex Female 1:19 AM DIVINE HEALER Gender Identity Not on file Sexual Orientation Not on file documented as of this encounter Plan of Treatment Not on file documented as of this encounter Procedures Procedure Name Priority Date/Time Associated Diagnosis Comments SERUM RAPID PLASMA REAGIN (RPR) Routine 06/04/2013 2:14 PM DIVINE HEALER SERUM HUMAN IMMUNODEFICIENCY VIRUS (HIV) 1, 2 AB Routine 06/04/2013 2:14 PM DIVINE HEALER BLOOD CELL COUNT (CBC) Routine 3 2:14 PM DIVINE HEALER DISCHARGE LABORATORY CUMULATIVE REPORT Routine 06/04/2013 12:00 AM DIVINE HEALER documented in this encounter Results * Serum rapid plasma reagin (RPR) (06/04/2013 2:14 PM DIVINE HEALER) [facility] RPR Nonreactive HISTORIC AL RESULTS Serum 06/04/2013 2:14 PM DIVINE HEALER Vanessa Rendon LAB BLOOD ORDERABLES Final Resu lt Performing Organization Address [facility] de Phone Number HISTORICAL RESULTS * Serum Human Immunodeficiency virus (HIV) 1, 2 ab (06/04/2013 2:14 PM DIVINE HEALER) [facility] HIV ab Negative NEG HISTORICAL RESULTS Serum 06/04/2013 2:14 PM DIVINE HEALER Vanessa MckeonElham Justice LAB BLOOD ORDERABLES Final Resu lt Performing Organization Address [facility] de Phone Number HISTORICAL RESULTS * (ABNORMAL) Blood cell count (CBC) (06/04/2013 2:14 PM DIVINE HEALER) [facility] WBC 8.8 3.8 - 9.8 K/cumm HISTORICAL RESULTS RBC 3.82(L) 3.90 - 5.00 M/cumm HISTORICAL RESULTS Hgb 11.3(L) 12.1 - 15.1 g/dl HISTORICAL RESULTS Hct 33.7(L) 36.1 - 44.3 % HISTORICAL RESULTS MCV 88.2 80.0 - 97.6 fl HISTORICAL RESULTS MCH 29.5 26.7 - 33.7 pg HISTORICAL RESULTS MCHC 33.5 32.7 - 35.5 g/dl HISTORICAL RESULTS Rdw 13.0 11.8 - 14.6 % HISTORICAL RESULTS Platelets 107(L) 140 - 440 K/cumm HISTORICAL RESULTS MPV 10.0 6.8 - 10.4 fl HISTORICAL RESULTS Neutrophils 71.1 38.7 - 74.5 % HISTORICAL RESULTS Lymphocytes 19.8(L) 20.0 - 54.3 % HISTORICAL RESULTS Monos 8.1 4.3 - 13.5 % HISTORICAL RESULTS Eosinophils 0.5 0.0 - 6.0 % HISTORICAL RESULTS Basophils 0.5 0.0 - 3.0 % HISTORICAL RESULTS Neutrophils, abs 6.3 1.8 - 6.6 K/cumm HISTORICAL RESULTS Lymphocytes, abs 1.7 1.2 - 3.3 K/cumm HISTORICAL RESULTS Monocytes, absolute 0.7 0.2 - 1.2 K/cumm HISTORICAL RESULTS Eosinophils, abs 0.0 0.0 - 0.5 K/cumm HISTORICAL RESULTS Basophils, abs 0.0 0.0 - 0.2 K/cumm HISTORICAL RESULTS Blood specimen (specimen) 06/04/2013 2:14 PM DIVINE HEALER us Vanessa Rendon LAB BLOOD ORDERABLES Final Resu lt HISTORICAL RESULTS * Discharge Laboratory Cumulative Report (06/04/2013 12:00 AM DIVINE HEALER) 06/04/2013 Narrative HISTORICAL RESULTS - 06/05/2013 3:19 AM DIVINE HEALER ?[facility] ?Department of Laboratories ? [facility] [place] ? [place] [address] Patient Name: ??NGUYEN CHATTERJEE [facility] Rec Number: [id number] Fin Number: ?[id number] Date: ?1990 Sex/Age: ? Female 22 years Admit Date: ?06/04/2013 Discharge Date: 06/04/2013 Doctor: ?Gynecology, Resident Facility: ?[facility] Location: ?CLOG Chart Printed: 06/05/2013 03:19 ?? * Abnormal ?? C Critical ?? f Footnote ?? ^ Corrected ?? L Low ?? H High ? i Interp Data ?? @ Reference Lab ? Chart Type:Periodic ? HIV / HTLV TESTS ?Test: HIV 1-2 Antibodies ? Reference: [NEG] ? Units: 06/04/2013 ?? 14:14:31 ?? NEG us Historical Provider LAB BLOOD ORDERABLES Destinee mckeon Result HISTORICAL RESULTS documented in this encounter Visit Diagnoses Diagnosis Encounter for supervision of normal in multigravida documented in this encounter
--- OUTSIDE RECORDS SUMMARY | 2024-07-28 06:41 | XMS_ITS | Encounter Summary ---
Author Organization [facility] Facility Care Team Providers Care Urinalysis Technician Name Role Phone Unavailable Primary Care Provider Unavailabl e Encounter Details Date Type Department Care Team (Late st Contact Info) Description 05/22/2007 10:05 AM FILLING OPERATOR - 05/22/2007 4:00 PM [facility] Hospital Encounter [facility] Tone Ascencio MD [address] [phone] [place] [address] Gynecology Social History Tobacco Use Types Packs/Day Years Used Date Smoking Tobacco: Never Assessed Comments Unknown Sex and Gender Information Value Date Recorded Sex Assigned at Not on file Legal Sex Female 1:19 AM FILLING OPERATOR Gender Identity Not on file Sexual Orientation Not on file documented as of this encounter Plan of Treatment Not on file documented as of this encounter Visit Diagnoses Not on filedocumented in this encounter
--- OUTSIDE RECORDS SUMMARY | 2024-07-28 06:41 | XMS_ITS | Encounter Summary ---
Author Organization [facility] Healthcare Address [address] [place] [address] Care Team Providers Care Commercial Loan Specialist Name Role Phone No, Physician Primary Care Provider [phone] Reason for Referral * Diagnostic Imaging (Routine) - Closed Specialty Diagnoses / Procedures Referred By Albaro t Referred To Contact Diagnoses Encounter for supervision of normal , antepartum, unspecified Procedures US Ob Limited Klarissa Regan NP Phone: tel: fax: [facility] (All Locations) Referral ID Status Reason Start Date Expiration Date Visits Re quested Visits Authorized [id number] Closed 02/04/2018 08/16/2019 1 1 Reason for Visit * Reason Comments Routine Visit Encounter Details Date Type Department Care Team (Late st Contact Info) Description 02/04/2018 3:00 PM CDT Office Visit Obstetrics and Gynecology Clinic [address] [facility] 3rd Floor [address] [place] [address] Meka Delarosa MD [address] [facility] [address] [phone] [place], [place] [id number] Klarissa Regan, EVELYN 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 Discharge Disposition: Discharge to home or self care Social History Tobacco Use Types Packs/Day Years Used Date Smoking Tobacco: Never Smokeless Tobacco: Never Comments Yes Sex and Gender Information Value Date Recorded Sex Assigned at Not on file Legal Sex Female 1:19 AM GRAINING MACHINE OPERATOR Gender Identity Not on file Sexual Orientation Not on file documented as of this encounter Last Filed Vital Signs Vital Sign Reading Time Taken Comments Blood Pressure 104/68 02/04/2018 3:45 PM CDT Pulse - - Temperature - - Respiratory Rate - - Oxygen Saturation - - Inhaled Oxygen Concentration - - Weight 72.9 kg (160 lb 11.2 oz) 02/04/2018 3:45 PM CDT Height - - Body Mass Index 26.74 12/03/2017 10:55 AM CDT documented in this encounter Patient Instructions * Patient Instructions* Klarissa Regan EDGER TAILER - 02/04/2018 3:00 PM CDT Patient Education at 19 to 22 Weeks WHAT YOU NEED TO KNOW: What changes are happening in my body? Now that you are in your second trimester, you have more energy. You may also be feeling hungrier than usual. You may be gaining about ?? to 1 pound a week, andyour is beginning to show. You may need to start wearing maternity clothes. As your baby gets larger, you may have other symptoms. These may include body aches or stretch fish on your abdomen, breasts, thighs, or buttocks. How do I care for myself at [...] changes are happening with my baby? By 22 weeks, your baby is about 8 inches long from the topof the head to the rump (baby's bottom). Your baby also weighs about 1 pound. Your baby is becomingmuch more active. You may be able to feel the baby move inside you now. The first movements may notbe that noticeable. They may feel like a fluttering sensation. As time goes on, your baby's movements will become stronger and more noticeable. What do I need to know about care? During the first 28 weeks of your , you will see your healthcare provider once a month. Your healthcare provider will check your blood pressure and weight. You may also need the following: [...] with your kidneys and other organs. ?? Fundal height is a measurement of your uterus to check your baby's growth. This number is usually the same as the number of weeks that you have been . ?? A ultrasound shows pictures of your baby inside your uterus. It shows your baby's development. The movement and position of your baby can also be seen. Your healthcare provider may be able to tell you what your baby's gender is during the ultrasound. ?? Your baby's heart rate will be [...] contact my healthcare provider? ?? You have abdominal cramps, pressure, or tightening. ?? You have a change in vaginal discharge. ?? You cannot keep food or drinks down, and you are losing weight. ?? You have chills or a fever. [...] refuse treatment. The above information is an dietary aide only. It is not intended as medical advice for individual conditions or treatments. Talk to your doctor, nurse or pharmacist before following any medical regimen to see if it is safe and effective for you. ?? 2016 [employer]. Information is for End User's use only and may not be sold, redistributed or otherwise used for commercial purposes. All illustrations and images included in CareNotes?? are the copyrighted property of [employer]. or [employer]. documented in this encounter Discharge Disposition Disposition Code Departure Means Destination Discharge to home or self care documented in this encounter Progress Notes * Klarissa Regan NP - 02/04/2018 3:00 PM CDT Subjective Pt presents today s/p anomaly u/s, having a girl. Anatomy is incomplete. Denies VB, LOF, or cramping and feeling occ movement. Continues to have urges to spit, trying to control with sipping fluids and gum. Taking daily PNV and low- dose ASA. 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), anatomy incomplete Problem List 21 weeks gestation of Overview labs UTD -discussed 1 hour GTT and CBC next visit Continue daily PNV Obtain completion of anatomy u/s in 2 weeks MOD: anticipates MOF: bottle MOC: TBD RTC in 4 weeks History of gHTN with prior Overview Continue daily low-dose ASA- plan to d/c at 36 weeks History of marijuana use in early Overview Previously reviewed risks to with continued use Continue to abstain for duration of Obtain random UDS each trimester-get next visit Nausea and vomiting of , antepartum Overview [...] normal limit (5-6mm) and genetic screening offered Desires NIPT at next visit with 2T labs documented in this encounter Plan of Treatment Not on file documented as of this encounter Procedures Procedure Name Priority Date/Time Associated Diagnosis Comments POCT URINALYSIS DIPSTICK Routine 02/04/2018 3:49 PM CDT Encounter for supervision of normal , antepartum, unspecified documented in this encounter Results * US Ob Limited (02/28/2018 3:05 PM CDT) Placenta Details posterior, Previa-no, no placental masses VIEWPOINT Presentation Breech VIEWPOINT Fetus# Fetus1 VIEWPOINT Anatomical Region Laterality Modality Abdomen N/A Ultrasound 02/28/2018 3:12 PM CDT Klarissa Regan EDGER TAILER IMG OB US PROCEDURES Final Result * (ABNORMAL) POCT urinalysis dipstick (02/04/2018 3:49 PM CDT) Glucose, ur, POC Negative Negative mg/dL Protein, ur, POC Trace(A) Negative Lot Number . 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
--- OUTSIDE RECORDS SUMMARY | 2024-07-28 06:41 | XMS_ITS | Encounter Summary ---
Author Organization [facility] Facility Care Team Providers Care Surgical Clinical Reviewer Name Role Phone Unavailable Primary Care Provider Unavailabl e Encounter Details Date Type Department Care Team (Late st Contact Info) Description 03/05/2008 2:05 PM CDT - 03/05/2008 4:00 PM CDT Hospital Encounter [facility] Khloe Mendoza MD [address] [facility] [address] [place] [address] Gynecology Social History Tobacco Use Types Packs/Day Years Used Date Smoking Tobacco: Never Assessed Comments Unknown Sex and Gender Information Value Date Recorded Sex Assigned at Not on file Legal Sex Female 1:19 AM CLERICAL AND ADMINISTRATIVE WORKERS Gender Identity Not on file Sexual Orientation Not on file documented as of this encounter Plan of Treatment Not on file documented as of this encounter Visit Diagnoses Not on filedocumented in this encounter
--- OUTSIDE RECORDS SUMMARY | 2024-07-28 06:41 | XMS_ITS | Encounter Summary ---
Author Organization [facility] Facility Care Team Providers Care Hub Inventory Specialist Name Role Phone Unavailable Primary Care Provider Unavailabl e Encounter Details Date Type Department Care Team (Late st Contact Info) Description 09/05/2007 10:38 AM SPECIAL EDUCATION TEACHING ASSISTANT - 09/05/2007 4:00 PM SPECIAL EDUCATION TEACHING ASSISTANT Hospital Encounter [facility] Tone Ascencio MD [address] [facility] [address] [phone] [place] [address] Gynecology Encounter for supervision of normal in multigravida Social History Tobacco Use Types Packs/Day Years Used Date Smoking Tobacco: Never Assessed Comments Unknown Sex and Gender Information Value Date Recorded Sex Assigned at Not on file Legal Sex Female 1:19 AM SPECIAL EDUCATION TEACHING ASSISTANT Gender Identity Not on file Sexual Orientation Not on file documented as of this encounter Plan of Treatment Not on file documented as of this encounter Visit Diagnoses Diagnosis Encounter for supervision of normal in multigravida documented in this encounter
--- OUTSIDE RECORDS SUMMARY | 2024-07-28 06:41 | XMS_ITS | Encounter Summary ---
Author Organization [facility] Facility Care Team Providers Care Shop Worker Name Role Phone Unavailable Primary Care Provider Unavailabl e Encounter Details Date Type Department Care Team (Late st Contact Info) Description 06/04/2007 2:18 PM EARTH BURNER - 06/04/2007 4:00 PM EARTH BURNER Hospital Encounter [facility] Tone Ascencio MD [address] [phone] [place] [address] Gynecology Social History Tobacco Use Types Packs/Day Years Used Date Smoking Tobacco: Never Assessed Comments Unknown Sex and Gender Information Value Date Recorded Sex Assigned at Not on file Legal Sex Female 1:19 AM EARTH BURNER Gender Identity Not on file Sexual Orientation Not on file documented as of this encounter Plan of Treatment Not on file documented as of this encounter Visit Diagnoses Not on filedocumented in this encounter
--- OUTSIDE RECORDS SUMMARY | 2024-07-28 06:41 | XMS_ITS | Encounter Summary ---
Author Organization [facility] Facility Care Team Providers Care Real Estate Rental Agent Name Role Phone Unavailable Primary Care Provider Unavailabl e Encounter Details Date Type Department Care Team (Late st Contact Info) Description 05/21/2013 1:26 PM VEIN PUMPER - 05/21/2013 4:00 PM VEIN PUMPER Hospital Encounter [facility] Tone Ascencio MD [address] [phone] [place] [address] Gynecology Encounter for supervision of normal in multigravida Social History Tobacco Use Types Packs/Day Years Used Date Smoking Tobacco: Never Assessed Comments Unknown Sex and Gender Information Value Date Recorded Sex Assigned at Not on file Legal Sex Female 1:19 AM VEIN PUMPER Gender Identity Not on file Sexual Orientation Not on file documented as of this encounter Plan of Treatment Not on file documented as of this encounter Procedures Procedure Name Priority Date/Time Associated Diagnosis Comments N. GONORRHOEAE, CHLAMYDIA TRACHOMATIS AMPLIFICATION TEST, CDR Routine 05/21/2013 2:19 PM VEIN PUMPER BETA STREP CULTURE, CDR Routine 05/21/2013 2:19 PM VEIN PUMPER ALL MICROBIOLOGY REPORT SECTION Routine 05/21/2013 12:00 AM VEIN PUMPER ALL MICROBIOLOGY REPORT SECTION Routine 05/21/2013 12:00 AM VEIN PUMPER DISCHARGE LABORATORY CUMULATIVE REPORT Routine 05/21/2013 12:00 AM VEIN PUMPER documented in this encounter Results * Beta strep culture (05/21/2013 2:19 PM VEIN PUMPER) Vaginal/Rectal (Vaginal/rectal) 05/21/2013 2:19 PM VEIN PUMPER 05/21/2013 4:57 PM VEIN PUMPER Narrative HISTORICAL RESULTS - 05/25/2013 1:46 AM VEIN PUMPER Negative Historical Provider MD LAB MICROBIOLOGY - GENERA L ORDERABLES Final Result Performing Organization Address City/[facility] Co de Phone Number HISTORICAL RESULTS * Neisseria gonorrhoeae, Chlamydia trachomatis amplification test (05/21/2013 2:19 PM VEIN PUMPER) Endocervical (Unknown) 05/21/2013 2:19 PM VEIN PUMPER 05/21/2013 6:03 PM VEIN PUMPER Impressions HISTORICAL RESULTS - 05/22/2013 2:54 PM VEIN PUMPER Testing performed by the [employer] APTIMA Combo 2 Assay. ??This nucleic acid amplification test (NAAT) detects ribosomal RNA (rRNA) from Chlamydia trachomatis and Neisseria gonorrhoeae using target capture, and Open Hearth Door Liner-Mediated Amplification (TMA). ??This test is approved by the [place] Food and Drug Administration for endocervical, vaginal, and male urethral swab specimens, in addition to male and female urine specimens. ??The performance characteristics for these specimen types have been verified by the [facility]. ??The performance characteristics of this test have not been evaluated in women or individuals less than 16 years of age. Current interpretive data was last revised on 2013. Narrative HISTORICAL RESULTS - 05/22/2013 2:54 PM VEIN PUMPER Negative for: ??Chlamydia trachomatis rRNA Negative for: ??Neisseria gonorrhoeae rRNA Historical Provider MD LAB MICROBIOLOGY - GENERA L ORDERABLES Final Result Performing Organization Address City/State/[facility] Co de Phone Number HISTORICAL RESULTS * All Microbiology Report Section (05/21/2013 12:00 AM VEIN PUMPER) 05/21/2013 Narrative HISTORICAL RESULTS - 05/22/2013 3:35 PM VEIN PUMPER ? [facility] ?[address] [facility] [address] [address] ? Patient Name: ??NGUYEN WANG ? Med Rec Number: [id number] ? Fin Number: ?[id number] ? Date: ?1990 ? Sex/Age: ? Female 22 years ? Admit Date: ?05/21/2013 ? Discharge Date: 05/21/2013 ? Doctor: ?Gynecology, Resident ? Facility: ?[facility] ? Location: ?CLOG ?* Abnormal ??A Alert ??f Footnote ??^ Corrected ??L Low ??H High ?i Interp Data ??@ Ref Lab ? Chart Type:Cumulative ?* * * * MICROBIOLOGY - GENITAL * * * * ?PROCEDURE: N. gonorrhoeae/C. trachomatis Amplification Test ? SOURCE: Endocervical ? COLLECTED: 05/21/13 ??1419 ?BODY SITE: ? STARTED: 05/21/13 ??1804 ? FREE TEXT SOURCE: ? FINAL REPORT ? REPORTED: 05/22/13 1454 ? Negative for: ??Chlamydia trachomatis rRNA Negative for: ? Neisseria gonorrhoeae rRNA ?* * * ??Interpretive Results ??* * * ? (1)Testing performed by the [employer] APTIMA Combo 2 Assay. ? This nucleic acid amplification test (NAAT) detects ribosomal ? RNA (rRNA) from Chlamydia trachomatis and Neisseria gonorrhoeae ? using target capture, and Open Hearth Door Liner-Mediated Amplification ? (TMA). ??This test is approved by the [place] Food and Drug ? Administration for endocervical, vaginal, and male urethral swab ? specimens, in addition to male and female urine specimens. ??The ? performance characteristics for these specimen types have been ? verified by the [facility]. ? The performance characteristics of this test have not been ? evaluated in women or individuals less than 16 years of ? age.Current interpretive data was last revised on 2013. ? us Historical Provider MD LAB MICROBIOLOGY - GENERA L ORDERABLES Final Result HISTORICAL RESULTS * All Microbiology Report Section (05/21/2013 12:00 AM VEIN PUMPER) 05/21/2013 Narrative HISTORICAL RESULTS - 05/25/2013 3:22 AM VEIN PUMPER ? [facility] ?[address] [facility] [address] [address] ? Patient Name: ??NGUYEN WANG ? Med Rec Number: [id number] ? Fin Number: ?[id number] ? Date: ?1990 ? Sex/Age: ? Female 22 years ? Admit Date: ?05/21/2013 ? Discharge Date: 05/21/2013 ? Doctor: ?Gynecology, Resident ? Facility: ?[facility] ? Location: ?CLOG ?* Abnormal ??A Alert ??f Footnote ??^ Corrected ??L Low ??H High ?i Interp Data ??@ Ref Lab ? Chart Type:Cumulative ?* * * * MICROBIOLOGY - GENITAL * * * * ?PROCEDURE: Beta Strep Culture ? SOURCE: Vaginal/Rectal ? COLLECTED: 05/21/13 ??1419 ?BODY SITE: ? STARTED: 05/21/13 ??1657 ? FREE TEXT SOURCE: ? FINAL REPORT ? REPORTED: 05/25/13 0146 ? Negative us Historical Provider MD LAB MICROBIOLOGY - GENERA L ORDERABLES Final Result HISTORICAL RESULTS * Discharge Laboratory Cumulative Report (05/21/2013 12:00 AM VEIN PUMPER) 05/21/2013 Narrative HISTORICAL RESULTS - 05/25/2013 3:25 AM VEIN PUMPER ?[facility] ?Department of Laboratories ? [address] [facility] [address] ? [place] [address] Patient Name: ??NGUYEN WANG [facility] Number: [id number] Fin Number: ?[id number] Date: ?1990 Sex/Age: ? Female 22 years Admit Date: ?05/21/2013 Discharge Date: 05/21/2013 Doctor: ?Gynecology, Resident Facility: ?[facility] Location: ?CLOG Chart Printed: 05/25/2013 03:25 ?? * Abnormal ?? C Critical ?? f Footnote ?? ^ Corrected ?? L Low ?? H High ? i Interp Data ?? @ Reference Lab ? Chart Type:Periodic ? MICROBIOLOGY - ALL TESTS ? PROCEDURE: Beta Strep Culture ?SOURCE: Vaginal/Rectal COLLECTED: 05/21/13 ??1419 ? BODY SITE: STARTED: 05/21/13 ??1657 FREE TEXT SOURCE: FINAL REPORT REPORTED: 05/25/13 0146 Negative ? MICROBIOLOGY - GENITAL ? PROCEDURE: Beta Strep Culture ?SOURCE: Vaginal/Rectal COLLECTED: 05/21/13 ??1419 ? BODY SITE: STARTED: 05/21/13 ??5207 FREE TEXT SOURCE: FINAL REPORT REPORTED: 05/25/13 0146 Negative us Historical Provider LAB BLOOD ORDERABLES Destinee l Result HISTORICAL RESULTS documented in this encounter Visit Diagnoses Diagnosis Encounter for supervision of normal in multigravida documented in this encounter
--- OUTSIDE RECORDS SUMMARY | 2024-07-28 06:41 | XMS_ITS | Encounter Summary ---
Author Organization [facility] Facility Care Team Providers Care House Mover Supervisor Name Role Phone Unavailable Primary Care Provider Unavailabl e Encounter Details Date Type Department Care Team (Late st Contact Info) Description 09/20/2007 3:00 AM CHUTE WORKER - 09/20/2007 4:15 AM CHUTE WORKER Hospital Encounter [facility] Tone Ascencio MD [address] [phone] [place] [address] Other current maternal conditions classifiable elsewhere, antepartum; Complication of , antepartum; Headache Social History Tobacco Use Types Packs/Day Years Used Date Smoking Tobacco: Never Assessed Comments Unknown Sex and Gender Information Value Date Recorded Sex Assigned at Not on file Legal Sex Female 1:19 AM CHUTE WORKER Gender Identity Not on file Sexual Orientation Not on file documented as of this encounter Plan of Treatment Not on file documented as of this encounter Visit Diagnoses Diagnosis Other current maternal conditions classifiable elsewhere, antepartum Complication of , antepartum Unspecified complication of , antepartum Headache documented in this encounter
--- OUTSIDE RECORDS SUMMARY | 2024-07-28 06:41 | XMS_ITS | Encounter Summary ---
Author Organization [facility] Healthcare Address [address] [place] [address] Care Team Providers Care Effervescent Salts Compounder Name Role Phone No, Physician Primary Care Provider [phone] Reason for Referral * Diagnostic Imaging (Routine) - Closed Specialty Diagnoses / Procedures Referred By Contchasity t Referred To Contact Diagnoses 26 weeks gestation of Procedures US Ob Follow Up Klarissa Regan NP Phone: tel: fax: [facility] (All Locations) Referral ID Status Reason Start Date Expiration Date Visits Re quested Visits Authorized [id number] Closed 03/25/2018 06/26/2018 3 3 Reason for Visit * Reason Comments Routine Visit Encounter Details Date Type Department Care Team (Late st Contact Info) Description 03/12/2018 1:45 PM CDT Office Visit Obstetrics and Gynecology Clinic [address] [facility] 3rd Floor [address] [place] [address] Meka Delarosa MD [address] [facility] [phone] [place], [place] [id number] Klarissa Regan NP [address] [place] [address] DR SAM [address] [place] [id number] Encounter for supervision of normal in second trimester, unspecified (Primary Dx); 26 weeks gestation of ; Nausea and vomiting of , antepartum; Marginal insertion of umbilical cord affecting management of mother; Candidiasis; Vaginal candidiasis; History of gHTN with prior ; History of marijuana use in early ; 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 Discharge Disposition: Discharge to home or self care Social History Tobacco Use Types Packs/Day Years Used Date Smoking Tobacco: Never Smokeless Tobacco: Never Comments Yes Sex and Gender Information Value Date Recorded Sex Assigned at Not on file Legal Sex Female 1:19 AM READERS' ADVISORY SERVICE LIBRARIAN Gender Identity Not on file Sexual Orientation Not on file documented as of this encounter Last Filed Vital Signs Vital Sign Reading Time Taken Comments Blood Pressure 105/63 03/12/2018 2:32 PM CDT Pulse 101 03/12/2018 2:32 PM CDT Temperature - - Respiratory Rate - - Oxygen Saturation - - Inhaled Oxygen Concentration - - Weight 77.1 kg (169 lb 14.4 oz) 03/12/2018 2:32 PM CDT Height 165.1 cm (5' 5 ) 03/12/2018 2:32 PM CDT Body Mass Index 28.27 03/12/2018 2:32 PM CDT documented in this encounter Patient Instructions * Patient Instructions* Klarissa eRgan, RN BARIATRIC - 03/12/2018 1:45 PM CDT Contact us Office hours: Sunday-Sunday 8:30 AM-4:30 PM Phone number: [phone] Daytime: Call us if you have questions [...] medical problem, you can call us at [phone]. Please wait until the clinic is open for non-urgent needs as this emergency line cannot help with appointments, paperwork or prescriptions. If you have an emergency and cannot wait, please call 911 or go to the [facility] Emergency room. If you are having a problem with your or are in labor you can go to the [facility] [place] (check in near elevator on first floor) [address] [facility], [address]th [place] [address]. Patient Education Kick Counts in SHOE REPAIRER: Kick counts measure how much your baby [...] ask them during your visits. ?? 2017 [employer] Information is for End User's use only and may not be sold, redistributed or otherwise used for commercial purposes. All illustrations and images included in CareNotes?? are the copyrighted property of [employer], [employer]. or [employer] ([employer]). The above information is an hearing aid repair technician only. It is not intended as medical [...] refuse treatment. The above information is an hearing aid repair technician only. It is not intended as medical advice for individual conditions or treatments. Talk to your doctor, nurse or pharmacist before following any medical regimen to see if it is safe and effective for you. ?? 2016 [employer]. Information is for End User's use only and may not be sold, redistributed or otherwise used for commercial purposes. All illustrations and images included in CareNotes?? are the copyrighted property of [employer]. or [employer] ([employer]). documented in this encounter Ordered Prescriptions Prescription Sig Dispense Quantity Refills Last Filled Start Date End Date fluconazole (DIFLUCAN) 150 mg tabletIndications: Candidiasis Take 1 tablet (150 mg total) by mouth once for 1 dose. Repeat in 3 days if symptoms persist. 2 tablet 03/12/2018 8 documented in this encounter Discharge Disposition Disposition Code Departure Means Destination Discharge to home or self care documented in this encounter Progress Notes * Leslie Bustos RN - 03/12/2018 1:45 PM CDT Instructed not to eat or drink anything until 1534 blood draw GTT. This includes water, ice, mints or gum. Patient verbalizes understanding. * Klarissa Regan NP - 03/12/2018 1:45 PM CDT Subjective Pt presents today for routine visit. Denies VB, LOF, or ctx and endorses frequent movement. Taking daily PNV and low-dose ASA. C/o vaginal itching and discharge which she feels is a yeast infection, requesting tx. Objective See ACOG Problem List 26 weeks gestation of Overview labs UTD -discussed 1 hour GTT and CBC next visit Continue daily PNV S/p completion of anatomy u/s on 02/28 Reviewed FKCs and s/s of PTL MOD: anticipates MOF: bottle MOC: TBD RTC in 2 weeks Female fetus Relevant Orders CBC without differential GTT, gestational diabetes 50gm screen [place] with Y Analysis US Ob Follow Up Drug screen, urine History of gHTN with prior Overview Continue daily low-dose ASA- plan to d/c at 36 weeks History of marijuana use in early Overview Previously reviewed risks to with continued use Continue to abstain for duration of Obtain random UDS each trimester-sent 03/12 Nausea and vomiting of , antepartum Overview [...] limit (5-6mm) and genetic screening offered Desires NIPT-sent 03/12, results pending Marginal insertion of umbilical cord affecting management of mother Overview Discussed today (03/12) Obtain serial u/s for growth q4 weeks-next in 2 weeks Vaginal candidiasis Overview Rx sent for fluconazole Notify provider if no improvement in sx with tx Relevant Medications fluconazole (DIFLUCAN) 150 mg tablet documented in this encounter Miscellaneous Notes * Addendum Note - Ronnie Salcedo CLT - 03/12/2018 1:45 PM CDTAddended by: RONNIE SALCEDO on: 03/12/2018 03:43 PM Modules accepted: Orders documented in this encounter Plan of Treatment Not on file documented as of this encounter Procedures Procedure Name Priority Date/Time Associated Diagnosis Comments GTT 50GM 1HR GESTATIONAL SCREEN Routine 03/12/2018 3:38 PM CDT 26 weeks gestation of CBC WITHOUT DIFFERENTIAL Routine 03/12/2018 3:38 PM CDT 26 weeks gestation of POCT URINALYSIS DIPSTICK Routine 03/12/2018 2:37 PM CDT Encounter for supervision of normal in second trimester, unspecified [place] WITH Y ANALYSIS Routine 03/12/2018 26 weeks gestation of documented in this encounter Results * US Ob Follow Up (03/26/2018 2:04 PM CDT) Placenta Details posterior, Previa-no VIEWPOINT Estimated Weight 1,290 g&grams VIEWPOINT Presentation Vertex VIEWPOINT Fetus# Fetus1 VIEWPOINT Anatomical Region Laterality Modality Abdomen N/A Ultrasound 03/26/2018 2:07 PM CDT Klarissa Regan NP IMG OB US PROCEDURES Final Result * GTT, gestational diabetes 50gm screen (03/12/2018 3:38 PM CDT) GTT 50g gest screen 85 70 - 140 mg/dL [facility] Comment: Interpretive Data Used for suspected gestational diabetes. ??The screening test uses 50 grams of glucose with sample obtained 1 hr later. Normal range: < 140 mg/dL. ??A glucose value of >140 mg/dL generally indicates the need for a full diagnostic tolerance test. Reference Interval Info: ??Diabetes Care 2005, Vol 28. ??Supplement 1, S37-S42. ??Report of the Expert Committee on the Diagnosis and Classification of Diabetes Mellitus. ??Diabetes Care 2000; 23 Suppl 1:S4-19. Current interpretive data was last revised on 2007. Blood specimen (specimen) 03/12/2018 3:38 PM CDT 03/12/2018 4:35 PM CDT Narrative [facility] WILKERSON - 03/12/2018 5:09 PM CDT Klarissa Regan NP LAB BLOOD ORDERABLES Final Result [facility] [address] [facility] Department [place] [address] * (ABNORMAL) CBC without differential (03/12/2018 3:38 PM CDT) Pathologist [facility] WBC 10.1(H) 3.8 - 9.9 K/cumm [facility] Hgb 10.8(L) 11.9 - 15.5 g/dL [facility] Hct 33.5(L) 35.6 - 45.5 % [facility] Plt 139(L) 150 - 400 K/cumm [facility] MPV 11.3 9.1 - 12.3 fL [facility] RBC 3.81(L) 3.90 - 5.20 M/cumm [facility] MCV 87.9 81.3 - 96.4 fL [facility] MCH 28.3 27.1 - 33.3 pg [facility] MCHC 32.2(L) 32.3 - 35.7 g/dL [facility] RDW CV 12.1 11.1 - 14.9 % [facility] RDW SD 39.0 35.7 - 48.1 fL [facility] NRBC abs 0.00 0.00 - 0.01 K/cumm [facility] Blood specimen (specimen) 03/12/2018 3:38 PM CDT 03/12/2018 4:35 PM CDT Narrative [facility] - 03/12/2018 4:58 PM CDT Klarissa Regan NP LAB BLOOD ORDERABLES Final Result [facility] [address] [facility] [place] [address] * (ABNORMAL) POCT urinalysis dipstick (03/12/2018 2:37 PM CDT) [facility] Glucose, ur, POC Negative Negative mg/dL Ketones, ur, POC Negative Negative Protein, ur, POC Trace(A) Negative Lot Number [id number] Urine 03/12/2018 2:37 PM CDT Klarissa B. Regan RN BARIATRIC POINT OF CARE TEST ORDERAB LES Final Result * [place] with Y Analysis (03/12/2018) Blood specimen (specimen) 03/12/2018 us Klarissa Regan RN BARIATRIC LAB BLOOD ORDERABLES Final Result EXTERNAL LAB documented in this encounter Visit Diagnoses Diagnosis Encounter for supervision of normal in second trimester, unspecified - Primary 26 weeks gestation of Nausea and vomiting of , antepartum Marginal insertion of umbilical cord affecting management of mother Candidiasis Vaginal candidiasis Candidiasis of vulva and vagina History of gHTN with prior History of marijuana use in 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
--- OUTSIDE RECORDS SUMMARY | 2024-07-28 06:41 | XMS_ITS | Encounter Summary ---
Author Organization [facility] Facility Care Team Providers Care Potato Pancake Frier Name Role Phone Unavailable Primary Care Provider Unavailabl e Encounter Details Date Type Department Care Team (Late st Contact Info) Description 02/21/2013 10:24 AM CDT - 02/21/2013 4:00 PM T Hospital Encounter [facility] Tone Ascencio MD [address] [phone] [place] [address] Gynecology Other specified screening Social History Tobacco Use Types Packs/Day Years Used Date Smoking Tobacco: Never Assessed Comments Unknown Sex and Gender Information Value Date Recorded Sex Assigned at Not on file Legal Sex Female 1:19 AM WARPER TENDER Gender Identity Not on file Sexual Orientation Not on file documented as of this encounter Plan of Treatment Not on file documented as of this encounter Visit Diagnoses Diagnosis Other specified screening documented in this encounter
--- OUTSIDE RECORDS SUMMARY | 2024-07-28 06:41 | XMS_ITS | Encounter Summary ---
Author Organization [facility] Facility Care Team Providers Care Carriage Dogger Name Role Phone Unavailable Primary Care Provider Unavailabl e Encounter Details Date Type Department Care Team (Latest Contact Info) Description 08/09/2010 1:30 PM E BUSINESS MANAGER - 08/09/2010 4:00 PM E BUSINESS MANAGER Hospital Encounter [facility] Khloe Mendoza MD [address] [place] [address] Gynecology Encounter for routine gynecological examination; Vaginitis and vulvovaginitis; Bacterial infection in conditions classified elsewhere; Tobacco use disorder; Cannabis abuse; Screening examination for sexually transmitted disease; Special screening examination for other specified chlamydial diseases Social History Tobacco Use Types Packs/Day Years Used Date Smoking Tobacco: Never Assessed Comments Unknown Sex and Gender Information Value Date Recorded Sex Assigned at Not on file Legal Sex Female 1:19 AM E BUSINESS MANAGER Gender Identity Not on file Sexual Orientation Not on file documented as of this encounter Plan of Treatment Not on file documented as of this encounter Visit Diagnoses Diagnosis Screening examination for sexually transmitted disease Vaginitis and vulvovaginitis Bacterial infection in conditions classified elsewhere Tobacco use disorder Cannabis abuse Nondependent cannabis abuse, unspecified Special screening examination for other specified chlamydial diseases documented in this encounter
--- OUTSIDE RECORDS SUMMARY | 2024-07-28 06:41 | XMS_ITS | Encounter Summary ---
Author Organization [facility] Facility Care Team Providers Care Optical Fabrication Technician Name Role Phone Unavailable Primary Care Provider Unavailabl e Encounter Details Date Type Department Care Team (Latest Contact Info) Description 01/24/2012 2:22 PM CDT - 01/24/2012 4:00 PM CDT Hospital Encounter [facility] Khloe Mendoza MD [address] [facility] [address] [place] [address] Gynecology Encounter for routine gynecological examination; Vaginitis and vulvovaginitis; Bacterial infection in conditions classified elsewhere; Encounter for surveillance of other contraceptive; Screening examination for sexually transmitted disease; Special screening examination for other specified chlamydial diseases; examination or test, negative result Social History Tobacco Use Types Packs/Day Years Used Date Smoking Tobacco: Never Assessed Comments Unknown Sex and Gender Information Value Date Recorded Sex Assigned at Not on file Legal Sex Female 1:19 AM COOKER SULFATE Gender Identity Not on file Sexual Orientation Not on file documented as of this encounter Plan of Treatment Not on file documented as of this encounter Visit Diagnoses Diagnosis Screening examination for sexually transmitted disease Vaginitis and vulvovaginitis Bacterial infection in conditions classified elsewhere Encounter for surveillance of other contraceptive Special screening examination for other specified chlamydial diseases examination or test, negative result documented in this encounter
--- OUTSIDE RECORDS SUMMARY | 2024-07-28 06:41 | XMS_ITS | Encounter Summary ---
Author Organization [facility] Healthcare Address [address] [place] [address] Care Team Providers Care Supervisor Mold Yard Name Role Phone Unavailable Primary Care Provider Unavailabl e Encounter Details Date Type Department Care Team (Late st Contact Info) Description 10/03/2011 3:26 AM CDT - 10/03/2011 11:59 PM CDT Hospital Encounter [facility] Incomplete Social History Tobacco Use Types Packs/Day Years Used Date Smoking Tobacco: Never Assessed Comments Unknown Sex and Gender Information Value Date Recorded Sex Assigned at Not on file Legal Sex Female 1:19 AM AIRPLANE TUBE BUILDER Gender Identity Not on file Sexual Orientation Not on file documented as of this encounter Plan of Treatment Not on file documented as of this encounter Visit Diagnoses Diagnosis Incomplete Legally unspecified , incomplete, without mention of complication documented in this encounter
--- OUTSIDE RECORDS SUMMARY | 2024-07-28 06:41 | XMS_ITS | Encounter Summary ---
Author Organization [facility] Facility Care Team Providers Care Station Detective Name Role Phone Unavailable Primary Care Provider Unavailabl e Encounter Details Date Type Department Care Team (Late st Contact Info) Description 08/13/2007 2:11 PM SEAL MIXING OPERATOR - 08/13/2007 4:00 PM SEAL MIXING OPERATOR Hospital Encounter [facility] Tone Ascencio MD [address] [facility] [address] [phone] [place] [address] Gynecology Encounter for supervision of normal in multigravida Social History Tobacco Use Types Packs/Day Years Used Date Smoking Tobacco: Never Assessed Comments Unknown Sex and Gender Information Value Date Recorded Sex Assigned at Not on file Legal Sex Female 1:19 AM SEAL MIXING 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
--- OUTSIDE RECORDS SUMMARY | 2024-07-28 06:41 | XMS_ITS | Encounter Summary ---
Author Organization [facility] Facility Care Team Providers Care Card Assembler Name Role Phone Unavailable Primary Care Provider Unavailabl e Encounter Details Date Type Department Care Team (Late st Contact Info) Description 04/23/2013 2:04 PM CDT - 04/23/2013 4:00 PM CDT Hospital Encounter [facility] Tone Ascencio MD [address] [phone] [place] [address] Gynecology Encounter for supervision of normal in multigravida Social History Tobacco Use Types Packs/Day Years Used Date Smoking Tobacco: Never Assessed Comments Unknown Sex and Gender Information Value Date Recorded Sex Assigned at Not on file 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
--- OUTSIDE RECORDS SUMMARY | 2024-07-28 06:41 | XMS_ITS | Encounter Summary ---
Author Organization [facility] Facility Care Team Providers Care Exhibition Organiser Name Role Phone Unavailable Primary Care Provider Unavailabl e Encounter Details Date Type Department Care Team (Late st Contact Info) Description 12/19/2007 1:00 PM CDT - 12/19/2007 4:00 PM CDT Hospital Encounter [facility] Khloe Mendoza MD [address] [facility] [address] [place] [address] Gynecology Social History Tobacco Use Types Packs/Day Years Used Date Smoking Tobacco: Never Assessed Comments Unknown Sex and Gender Information Value Date Recorded Sex Assigned at Not on file 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
--- OUTSIDE RECORDS SUMMARY | 2024-07-28 06:41 | XMS_ITS | Encounter Summary ---
Author Organization [facility] Facility Care Team Providers Care Machine Stapler Name Role Phone Unavailable Primary Care Provider Unavailabl e Encounter Details Date Type Department Care Team (Late st Contact Info) Description 08/15/2013 11:22 AM USER EXPERIENCE DESIGNER - 08/15/2013 4:00 PM USER EXPERIENCE DESIGNER Hospital Encounter [facility] Khloe Mendoza MD [address] [place] [address] Gynecology Routine follow-up; Vaginitis and vulvovaginitis; Bacterial infection in conditions classified elsewhere Social History Tobacco Use Types Packs/Day Years Used Date Smoking Tobacco: Never Assessed Comments Unknown Sex and Gender Information Value Date Recorded Sex Assigned at Not on file Legal Sex Female 1:19 AM USER EXPERIENCE DESIGNER Gender Identity Not on file Sexual Orientation Not on file documented as of this encounter Plan of Treatment Not on file documented as of this encounter Procedures Procedure Name Priority Date/Time Associated Diagnosis Comments N. GONORRHOEAE, CHLAMYDIA TRACHOMATIS AMPLIFICATION TEST, CDR Routine 08/15/2013 12:24 PM USER EXPERIENCE DESIGNER ALL MICROBIOLOGY REPORT SECTION Routine 08/15/2013 12:00 AM USER EXPERIENCE DESIGNER DISCHARGE LABORATORY CUMULATIVE REPORT Routine 08/15/2013 12:00 AM USER EXPERIENCE DESIGNER documented in this encounter Results * Neisseria gonorrhoeae, Chlamydia trachomatis amplification test (08/15/2013 12:24 PM USER EXPERIENCE DESIGNER) Endocervical (Unknown) 08/15/2013 12:24 PM USER EXPERIENCE DESIGNER 08/15/2013 4:23 PM USER EXPERIENCE DESIGNER Impressions HISTORICAL RESULTS - 08/18/2013 2:29 PM USER EXPERIENCE DESIGNER Testing performed by the Gen-Probe [employer] APTIMA Combo 2 Assay. ??This nucleic acid amplification test (NAAT) detects ribosomal RNA (rRNA) from Chlamydia trachomatis and Neisseria gonorrhoeae using target capture, and Elastic Attacher Zigzag-Mediated Amplification (TMA). ??This test is approved by the [place] Food and Drug Administration for endocervical, vaginal, and male urethral swab specimens, in addition to male and female urine specimens. ??The performance characteristics for these specimen types have been verified by the [facility] Microbiology Laboratory. ??The performance characteristics of this test have not been evaluated in women or individuals less than 16 years of age. Current interpretive data was last revised on 2013. Narrative HISTORICAL RESULTS - 08/18/2013 2:29 PM USER EXPERIENCE DESIGNER Negative for: ??Chlamydia trachomatis rRNA Negative for: ??Neisseria gonorrhoeae rRNA us Historical Provider MD LAB MICROBIOLOGY - GENERA L ORDERABLES Final Result HISTORICAL RESULTS * Discharge Laboratory Cumulative Report (08/15/2013 12:00 AM USER EXPERIENCE DESIGNER) 08/15/2013 Narrative HISTORICAL RESULTS - 08/18/2013 3:31 PM USER EXPERIENCE DESIGNER ?[facility] ?Department of Laboratories ? [address] [facility] ? [place] [address] Patient Name: ??NGUYEN CHATTERJEE [facility] Rec Number: [id number] Fin Number: ?[id number] Date: ?1990 Sex/Age: ? Female 22 years Admit Date: ?08/15/2013 Discharge Date: 08/15/2013 Doctor: ?Gynecology, Resident Facility: ?[facility] Location: ?[facility] Chart Printed: 08/18/2013 15:31 ?? * Abnormal ?? C Critical ?? f Footnote ?? ^ Corrected ?? L Low ?? H High ? i Interp Data ?? @ Reference Lab ? Chart Type:Periodic ? MICROBIOLOGY - ALL TESTS ? PROCEDURE: N. gonorrhoeae/C. trachomatis Amplification Test ?SOURCE: Endocervical COLLECTED: 08/15/13 ??1224 ? BODY SITE: STARTED: 08/15/13 ??1624 FREE TEXT SOURCE: FINAL REPORT REPORTED: 08/18/13 1429 Negative for: ??Chlamydia trachomatis rRNA Negative for: Neisseria gonorrhoeae rRNA * * * ??Interpretive Results ??* * * (1)Testing performed by the Gen-[employer]ris APTIMA Combo 2 Assay. This nucleic acid amplification test (NAAT) detects ribosomal RNA (rRNA) from Chlamydia trachomatis and Neisseria gonorrhoeae using target capture, and Elastic Attacher Zigzag-Mediated Amplification (TMA). ??This test is approved by the [place] Food and Drug Administration for endocervical, vaginal, and male urethral swab specimens, in addition to male and female urine specimens. ??The performance characteristics for these specimen types have been verified by the [facility] Microbiology Laboratory. The performance characteristics of this test have not been evaluated in women or individuals less than 16 years of age.Current interpretive data was last revised on 2013. ? MICROBIOLOGY - GENITAL ? PROCEDURE: N. gonorrhoeae/C. trachomatis Amplification Test ?SOURCE: Endocervical COLLECTED: 08/15/13 ??1224 ? BODY SITE: STARTED: 08/15/13 ??1624 FREE TEXT SOURCE: FINAL REPORT REPORTED: 08/18/13 1429 Negative for: ??Chlamydia trachomatis rRNA Negative for: Neisseria gonorrhoeae rRNA * * * ??Interpretive Results ??* * * (1)Testing performed by the [employer] APTIMA Combo 2 Assay. This nucleic acid amplification test (NAAT) detects ribosomal RNA (rRNA) from Chlamydia trachomatis and Neisseria gonorrhoeae using target capture, and Elastic Attacher Zigzag-Mediated Amplification (TMA). ??This test is approved by the [place] Food and Drug Administration for endocervical, vaginal, and male urethral swab specimens, in addition to male and female urine specimens. ??The performance characteristics for these specimen types have been verified by the [facility] Microbiology Laboratory. The performance characteristics of this test have not been evaluated in women or individuals less than 16 years of age.Current interpretive data was last revised on 2013. us Historical Provider LAB BLOOD ORDERABLES Destinee [email or web address] Result HISTORICAL RESULTS * All Microbiology Report Section (08/15/2013 12:00 AM USER EXPERIENCE DESIGNER) 08/15/2013 Narrative HISTORICAL RESULTS - 08/18/2013 3:25 PM USER EXPERIENCE DESIGNER ? [facility] ?[facility] [place] ?[facility] [address] ? Patient Name: ??NGUYEN CHATTERJEE ? Med Rec Number: [id number] ? Fin Number: ?[id number] ? Date: ?1990 ? Sex/Age: ? Female 22 years ? Admit Date: ?08/15/2013 ? Discharge Date: 08/15/2013 ? Doctor: ?Gynecology, Resident ? Facility: ?[facility] ? Location: ?CLOG ?* Abnormal ??A Alert ??f Footnote ??^ Corrected ??L Low ??H High ?i Interp Data ??@ Ref Lab ? Chart Type:Cumulative ?* * * * MICROBIOLOGY - GENITAL * * * * ?PROCEDURE: N. gonorrhoeae/C. trachomatis Amplification Test ? SOURCE: Endocervical ? COLLECTED: 08/15/13 ??1224 ?BODY SITE: ? STARTED: 08/15/13 ??1624 ? FREE TEXT SOURCE: ? FINAL REPORT ? REPORTED: 08/18/13 1429 ? Negative for: ??Chlamydia trachomatis rRNA Negative for: ? Neisseria gonorrhoeae rRNA ?* * * ??Interpretive Results ??* * * ? (1)Testing performed by the [employer]-Probe [employer] APTIMA Combo 2 Assay. ? This nucleic acid amplification test (NAAT) detects ribosomal ? RNA (rRNA) from Chlamydia trachomatis and Neisseria gonorrhoeae ? using target capture, and Elastic Attacher Zigzag-Mediated Amplification ? (TMA). ??This test is approved by the [place] Food and Drug ? Administration for endocervical, vaginal, and male urethral swab ? specimens, in addition to male and female urine specimens. ??The ? performance characteristics for these specimen types have been ? verified by the [facility] Microbiology Laboratory. ? The performance characteristics of this test have not been ? evaluated in women or individuals less than 16 years of ? age.Current interpretive data was last revised on 2013. ? us Historical Provider LAB MICROBIOLOGY - GENERA L ORDERABLES Final Result HISTORICAL RESULTS documented in this encounter Visit Diagnoses Diagnosis Routine follow-up Vaginitis and vulvovaginitis Bacterial infection in conditions classified elsewhere documented in this encounter
--- OUTSIDE RECORDS SUMMARY | 2024-07-28 06:41 | XMS_ITS | Encounter Summary ---
Author Organization 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
--- OUTSIDE RECORDS SUMMARY | 2024-07-28 06:41 | XMS_ITS | Encounter Summary ---
Author Organization [facility] Healthcare Address [address] [place] [address] Care Team Providers Care Bar Turner Name Role Phone No, Physician Primary Care Provider [phone] Encounter Details Date Type Department Care Team (Latest Contact Info) Description 12/03/2017 10:24 AM CDT - 12/03/2017 11:59 PM CDT Hospital Encounter [facility] OP INTERIM [phone] Meka Delarosa MD [address] [facility] [id number] [place] [address] Klarissa Regan, CONTINUITY MANAGER [address] SAM [address] [place] [address] [id number] Discharge Disposition: Discharge to home or self care Social History Tobacco Use Types Packs/Day Years Used Date Smoking Tobacco: Never Assessed Comments Yes Sex and Gender Information Value Date Recorded Sex Assigned at Not on file 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 12/03/2017 8 aspirin 81 mg chewable tablet Take 1 tablet by mouth daily. 12/03/2017 8 ondansetron ODT (ZOFRAN-ODT) 8 mg disintegrating tablet Take 1 tablet by mouth every 8 (eight) hours as needed. 12/03/2017 8 PNV with [id number] ( VITAMIN PLUS LOW IRON) 27 mg iron- 1 mg tablet Take 1 tablet by mouth daily. 12/03/2017 1 documented as of this encounter Discharge Disposition Disposition Code Departure Means Destination Discharge to home or self care documented in this encounter Plan of Treatment Not on file documented as of this encounter Procedures Procedure Name Priority Date/Time Associated Diagnosis Comments CANNABINOIDS, URINE, CONFIRMATION Routine Gen Lab 12/03/2017 12:57 PM CDT DRUGS OF ABUSE SCREEN, URINE WITHOUT CONFIRMATION Routine Gen Lab 12/03/2017 12:57 PM CDT URINE CULTURE RTNm 12/03/2017 12:57 PM CDT TYPE AND SCREEN Routine Gen Lab 12/03/2017 12:55 PM CDT DIFFERENTIAL AUTO Routine Gen Lab 12/03/2017 12: 35 PM CDT OB PANEL RUBELLA IGG Routine Gen Lab 12/03/2017 12:35 PM CDT OB PANEL RPR Routine Gen Lab 12/03/2017 12:35 PM CDT OB PANEL HEPATITIS B SURFACE ANTIGEN Routine Gen Lab 12/03/2017 12:35 PM CDT HIV 1/2 ANTIBODY PLUS P24 ANTIGEN Routine Gen Lab 12/03/2017 12:35 PM CDT CBC WITH AUTO DIFFERENTIAL Routine Gen Lab 12/03/2017 12:35 PM CDT HEMOGLOBIN ANALYSIS BY ELECTROPHORESIS Routine Gen Lab 12/03/2017 12:35 PM CDT HEPATITIS C ANTIBODY Routine Gen Lab 12/03/2017 12:35 PM CDT VARICELLA ZOSTER ANTIBODY, IGG Routine Gen Lab 12/03/2017 12:35 PM CDT N. GONORRHOEAE/C. TRACHOMATIS AMPLIFICATION TEST Routine Gen Lab 12/03/2017 11:53 AM CDT CYTOLOGY Routine 12/03/2017 11:52 AM CDT HCG, QUAL, URINE, POC Routine Gen Lab 12/03/2017 11:00 AM CDT CYTOLOGY 12/03/2017 12:00 AM CDT documented in this encounter Results * Urine culture (12/03/2017 12:57 PM CDT) Report Final Report: Growth indicative of contamination with periurethral dior. Please submit a new specimen with special attention given to the collection process and to prompt transport to the laboratory. [facility] Organism GROWTH INDICATES CONTAM WITH PERIURETHRAL DIOR. [facility] Urine 12/03/2017 12:5 7 PM CDT 12/03/2017 5:33 PM CDT Narrative [facility] - 12/04/2017 11:31 AM CDT Testing performed by [facility]biology Laboratory ([phone]) Klarissa Regan CONTINUITY MANAGER LAB MICROBIOLOGY - GENERAL ORDERABLES Final Result [facility] Department [place] [address] * (ABNORMAL) Cannabinoids, urine, confirmation (12/03/2017 12:57 PM CDT) Cannabinoids Confirmation Confirmed positive(A) [facility] Urine 12/03/2017 12:5 7 PM CDT 12/03/2017 6:18 PM CDT Narrative [facility] - 12/03/2017 10:53 PM CDT This test was developed using an analyte specific reagent. ??Its performance characteristics were determined by the [facility] in a manner consistent with CLIA requirements. ??This test has not been cleared or approved by the U.S. Food and Drug Administration. Klarissa Machado Regan CONTINUITY MANAGER LAB URINE ORDERABLES Final Result [facility] Department [place] [address] * Drug screen, urine (12/03/2017 12:57 PM CDT) [facility] Amphetamines, Class None detected [facility] WILKERSON Comment: Interpretive [...] reported as presumptive and submitted for confirmatory testing.See separate confirmatory results for final interpretation.Results are to be used for medical purposes only. Current interpretive data was last revised 2015. Benzodiazepines, ur None detected [facility] WILKERSON Comment: [...] data was last revised 2015. Cannabinoids, Screen Presumptive [facility]ILKERSON Comment: Interpretive Data Immunoassay Screen [...] interpretive data was last revised 2015. Opiates, ur None detected [facility] WILKERSON Comment: Interpretive [...] on 2015. Phencyclidine, ur None detected [facility]JAH Pandey Comment: Interpretive Data Immunoassay Screen cutoff level 25 ng/mL. Samples containing greater than 25 ng/mL of phencyclidine (PCP) or other cross-reacting substances are reported as presumptive and submitted for confirmatory testing. ??See separate confirmatory results for final interpretation. Results are to be used for medical purposes only. ? Current interpretive data was last revised 2015. Urine 12/03/2017 12:5 7 PM CDT 12/03/2017 5:40 PM CDT Narrative [facility] - 12/03/2017 7:35 PM CDT Klarissa Regan CONTINUITY MANAGER LAB URINE ORDERABLES Final Result [facility] [place] [address] * Type and screen (12/03/2017 12:55 PM CDT) [facility] Jeronimo, indirect Negative [facility] ABO Rh B Positive [facility] Blood specimen (specimen) 12/03/2017 12:55 PM CDT 12/03/2017 2:07 PM CDT Narrative [facility] - 12/03/2017 3:23 PM CDT us Klarissa Regan NP LAB BLOOD BANK TEST ORDERA BLES Final Result Performing Organization Address [facility] [place] [address] * OB panel hepatitis B surface antigen (12/03/2017 12:35 PM CDT) [facility] HepBsAg Nonreactive Nonreactive [facility] Blood specimen (specimen) 12/03/2017 12:35 PM CDT 12/03/2017 2:02 PM CDT Narrative [facility] - 12/04/2017 9:34 AM CDT us Klarissa Regan NP LAB BLOOD ORDERABLES Edite d Result - Final Performing Organization Address [facility] de Phone Number [facility] [place] [address] * Hepatitis C antibody (12/03/2017 12:35 PM CDT) [facility] Hep C Ab Nonreactive Nonreactive [facility] Comment: Interpretive Data Positive and greyzone results should be confirmed by a molecular method. If positive or greyzone, a second separately collected sample should be submitted for Hepatitis C Virus RNA. Detection and Quantitation by Real-Time Reverse Director Client Services-PCR.Current Interpretive data was last revised on 2016. Blood specimen (specimen) 12/03/2017 12:35 PM CDT 12/03/2017 2:02 PM CDT Narrative [facility] - 12/04/2017 9:34 AM CDT Klarissa Regan CONTINUITY MANAGER LAB MICROBIOLOGY - GENERAL ORDERABLES Edited Result - Final Performing Organization Address [facility] de Phone Number [facility] Department [place] [address] * (ABNORMAL) Varicella zoster antibody, IgG (12/03/2017 12:35 PM CDT) [facility] VZV IgG Positive( A) Negative [facility] Comment: Interpretive Data Negative: ??No detectable antibody to Varicella-zoster ? virus. ??Such individuals ? are presumed to be uninfected with VZV and to ? be susceptible to primary infection. Equivocal: Presence or absence of detectable antibodies ? to VZV IgG cannot be determined and the test ? should be repeated. Positive: ??Indicated presence of detectable antibody to ? VZV. ??Indicative of current ? or previous infection or vaccination. Current interpretive data was last revised on 2016. Blood specimen (specimen) 12/03/2017 12:35 PM CDT 12/03/2017 2:02 PM CDT Narrative [facility] - 12/04/2017 9:30 AM CDT us Klarissa Regan NP LAB MICROBIOLOGY - GENERAL ORDERABLES Final Result Performing Organization Address [facility] de Phone Number [facility] Department [place] [address] * (ABNORMAL) OB panel rubella IgG (12/03/2017 12:35 PM CDT) [facility] Rubella IgG Positive(A ) Negative [facility] Blood specimen (specimen) 12/03/2017 12:35 PM CDT 12/03/2017 2:02 PM CDT [facility] - 12/04/2017 9:29 AM CDT us Klarissa Regan CONTINUITY MANAGER LAB BLOOD ORDERABLES Final Result Performing Organization Address [facility]/ZIP Co de Phone Number [facility] Department [place] [address] * OB panel RPR (12/03/2017 12:35 PM CDT) [facility] RPR Nonreactive Nonreactive [facility] Blood specimen (specimen) 12/03/2017 12:35 PM CDT 12/03/2017 2:02 PM CDT [facility] 12/03/2017 5:30 PM CDT us Klarissa Regan CONTINUITY MANAGER LAB BLOOD ORDERABLES Final Result Performing Organization Address [facility] Co de Phone Number [facility] Department [place] [address] * HIV-1 and HIV-2 antibody with P24 antigen immunoassay (12/03/2017 12:35 PM CDT) [facility] HIV 1/2 ab + p24 ag Nonreactive Nonreactive [facility] Comment:Negative for HIV-1 a ntigen and HIV-1/ HIV-2 antibodies. No laboratory evidence of HIV infection. If acute HIV infection is suspected, consider testing for HIV-1 RNA. Blood specimen (specimen) 12/03/2017 12:35 PM CDT 12/03/2017 2:02 PM CDT [facility] - 12/03/2017 3:39 PM CDT us Klarissa Regan CONTINUITY MANAGER LAB MICROBIOLOGY - GENERAL ORDERABLES Final Result Performing Organization Address [facility] Co de Phone Number [facility] Department [place] [address] * Hemoglobin analysis by electrophoresis (12/03/2017 12:35 PM CDT) [facility] RBC 4.25 3.90 - 5.20 M/cumm [facility] Hgb 12.8 11.9 - 15.5 g/dL [facility] MCV 88.9 81.3 - 96.4 fL [facility] Rdw 13.2 11.1 - 14.9 % [facility] Hgb electrophores is, interp Normal Hemoglobin Pattern - For Age [facility] Hgb A 97.3 96.0 - 98.5 % [facility] Hgb A2 2.7 1.5 - 3.2 % [facility] Hgb F <0.4 0.0 - 0.9 % [facility] Blood specimen (specimen) 12/03/2017 12:35 PM CDT 12/03/2017 2:02 PM CDT Narrative [facility] - 12/04/2017 1:15 PM CDT us Klarissa Regan CONTINUITY MANAGER LAB BLOOD ORDERABLES Final Result Performing Organization Address [facility] Co de Phone Number [facility] Department [place] [address] * (ABNORMAL) Differential, auto (12/03/2017 12:35 PM CDT) [facility] Neutrophil pct 72.5 % [facility] Imm gran pct 0.4 % [facility] Lymphocyte pct 19.7 % [facility] Monocyte pct 6.1 % [facility] Eosinophil pct 1.1 % [facility] Basophil pct 0.2 % [facility] Neutrophil abs 8.98(H) 1.70 - 6.50 K/cumm [facility] Imm gran abs 0.05 0.00 - 0.10 K/cumm [facility] Lymphocyte abs 2.44 0.80 - 3.30 K/cumm [facility] Monocyte abs 0.75 0.20 - 0.80 K/cumm [facility] Eosinophil abs 0.13 0.00 - 0.50 K/cumm [facility] Basophil abs 0.02 0.00 - 0.10 K/cumm [facility] Blood specimen (specimen) 12/03/2017 12:35 PM CDT 12/03/2017 2:02 PM CDT Narrative [facility] - 12/03/2017 2:08 PM CDT us Klarissa Regan CONTINUITY MANAGER LAB BLOOD ORDERABLES Final Result [facility] Department [place] [address] * (ABNORMAL) CBC with auto differential (12/03/2017 12:35 PM CDT) WBC 12.4(H) 3.8 - 9.9 K/cumm [facility] RBC 4.15 3.90 - 5.20 M/cumm [facility] Hgb 12.8 11.9 - 15.5 g/dL [facility] Hct 37.1 35.6 - 45.5 % [facility] MCV 89.4 81.3 - 96.4 fL [facility] MCH 30.8 27.1 - 33.3 pg [facility] MCHC 34.5 32.3 - 35.7 g/dL [facility] RDW CV 13.3 11.1 - 14.9 % [facility] RDW SD 43.7 35.7 - 48.1 fL [facility] Plt 157 150 - 400 K/cumm [facility] MPV 10.7 9.1 - 12.3 fL [facility] NRBC abs 0.00 0.00 - 0.01 K/cumm [facility] Blood specimen (specimen) 12/03/2017 12:35 PM CDT 12/03/2017 2:02 PM CDT Narrative [facility] - 12/03/2017 2:08 PM CDT Klarissa Regan CONTINUITY MANAGER LAB BLOOD ORDERABLES Final Result [facility] [place] [address] * N. gonorrhoeae/C. trachomatis amplification test (12/03/2017 11:53 AM CDT) Report Final Report: Negative for: ??Chlamydia trachomatis rRNA Negative for: ??Neisseria gonorrhoeae rRNA [facility] Endocervical 12/03/2017 11:5 3 AM CDT 12/03/2017 5:35 PM CDT N[facility]ative [facility] - 12/03/2017 5:35 PM CDT Testing performed by the Gen-Probe [employer] APTIMA Combo 2 Assay. This nucleic acid amplification test (NAAT) detects ribosomal RNA (rRNA) from Chlamydia trachomatis and Neisseria gonorrhoeae using target capture,and Director Client Services-Mediated Amplification (TMA). This test is approved by the [place] Food and Drug Administration for endocervical, vaginal, and male urethral swab specimens, in addition to male and female urine specimens. The performance characteristics for these specimen types have been verified by the [facility].The performance characteristics of this assay for pharyngeal and rectal specimens collected from cervical swab collection devices have been validated and verified by the [facility]. Verification studies support a lack [...] GENERAL ORDERABLES Final Result Performing Organization Address [facility]/ZIP Co de Phone Number [facility] Department [place] [address] * Cytology (12/03/2017 11:52 AM CDT) 12/03/2017 11:5 2 AM CDT 12/03/2017 5:21 PM CDT Narrative 12/14/2017 8:22 AM CDT [facility] [place] [address] CYTOPATHOLOGY REPORT FINAL Patient Name: NGUYEN CHATTERJEE Address: [address] [place] [address] Service: Obstetrics ??[place], [place] ??[address] Location: [facility] Taken: 12/03/2017 Gender: F Received: 12/03/2017 : 1990 (Age: 27) Hospital #: [id number] Accessioned: 12/03/2017 ?? Patient Type: [facility] Ancillary Reported: 12/14/2017 ? Physician(s): KITA Love ?? FINAL INTERPRETATION SOURCE OF SPECIMEN: ? Liquid based pap test,ThinPrep STATEMENT OF ADEQUACY: ?- Satisfactory for evaluation ?- Endocervical cells/transformation zone sample absent GENERAL CATEGORY: ?- Negative for squamous intraepithelial lesion or malignancy DESCRIPTION: ?- Shift in dior suggestive of bacterial vaginosis ?- Fungal organisms morphologically consistent with rabia species erin/12/14/2017 08:22 ?BENJAMIN Tavarez(ASCP) ??Report Electronically Reviewed and Signed Out By BENJAMIN Tavarez(ASCP) 12/14/2017 08:22:32 ?? Gross Description A. ??Liquid based pap test,ThinPrep: ??Cervical/vaginal - Screening ThinPrep ?? Clinical Diagnosis and History Last Menstrual Period: Not Provided. Menstrual History: ICD-9 code V22.2 per requisition. This Cytology report is available electronically in Clinical Desktop. The performance characteristics of some immunohistochemical stains, in-situ hybridization and fluorescence in-situ hybridization tests and immunophenotyping by flow cytometry cited in this report (if any) were determined by the Surgical Pathology Department at [facility] as part of an ongoing manager quality compliance program and in compliance with federally mandated [...] determined by the Surgical Pathology Department of [facility]. ??It has not been cleared or approved by the U. S. Food and Drug Administration. Klarissa Regan NP LAB CYTOLOGY ORDERABLES Fi nal Result * (ABNORMAL) hCG, Qual, Urine, POC (12/03/2017 11:00 AM CDT) HCG, ur, POC Positive(A ) [facility] Urine 12/03/2017 11:0 0 AM CDT 12/04/2017 8:06 AM CDT Narrative [facility] - 12/04/2017 8:14 AM CDT Klarissa Regan NP LAB BLOOD ORDERABLES Final Result [facility] Department [place] [address] * CYTOLOGY (12/03/2017 12:00 AM CDT) Narrative 12/03/2017 12:00 AM CDT Ordered by an unspecified provider. Historical Provider LAB CYTOLOGY ORDERABLES F inal Result documented in this encounter Visit Diagnoses Not on filedocumented in this encounter Care Teams Bar Turner Relationship Specialty Start Date End Date No, Physician PCP - General 12/03/17 01/03/23 documented as of this encounter
--- OUTSIDE RECORDS SUMMARY | 2024-07-28 06:41 | XMS_ITS | Encounter Summary ---
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
--- OUTSIDE RECORDS SUMMARY | 2024-07-28 06:41 | XMS_ITS | Encounter Summary ---
Author Organization 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
--- OUTSIDE RECORDS SUMMARY | 2024-07-28 06:41 | XMS_ITS | Encounter Summary ---
Author Organization [facility] Healthcare Address [address] [place] [address] Care Team Providers Care Ticket Attendant Name Role Phone No, Physician Primary Care Provider [phone] Reason for Visit * Reason Onset Date Comments Call back 12/15/2017 pt has some ques tions Encounter Details Date Type Department Care Team (Late st Contact Info) Description 12/15/2017 Telephone [facility] [address] [place] [address] Outpatient Health 3rd Floor [address] [place] [address] Jessie Pack MD Call back (pt has some questions ) Social History Tobacco Use Types Packs/Day Years Used Date Smoking Tobacco: Never Assessed Comments Yes Sex and Gender Information Value Date Recorded Sex Assigned at Not on file 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
--- OUTSIDE RECORDS SUMMARY | 2024-07-28 06:41 | XMS_ITS | Encounter Summary ---
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
--- OUTSIDE RECORDS SUMMARY | 2024-07-28 06:41 | XMS_ITS | Encounter Summary ---
Author Organization [facility] Facility Care Team Providers Care Hospital Fellow Name Role Phone Unavailable Primary Care Provider Unavailabl e Encounter Details Date Type Department Care Team (Late st Contact Info) Description 03/06/2013 1:45 PM CDT - 03/06/2013 4:00 PM CDT Hospital Encounter [facility] Tone Ascencio MD [address] [phone] [place] [address] Gynecology Encounter for supervision of normal in multigravida Social History Tobacco Use Types Packs/Day Years Used Date Smoking Tobacco: Never Assessed Comments Unknown Sex and Gender Information Value Date Recorded Sex Assigned at Not on file 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
--- OUTSIDE RECORDS SUMMARY | 2024-07-28 06:41 | XMS_ITS | Encounter Summary ---
Author Organization [facility] Healthcare Address [address] [place] [address] Care Team Providers Care Network Liaison Name Role Phone No, Physician Primary Care Provider [phone] Encounter Details Date Type Department Care Team (Late st Contact Info) Description 12/31/2017 10:15 AM CDT Office Visit Obstetrics and Gynecology Clinic [address] [facility] 3rd Floor [address] [place] [address] Meka Delarosa MD [address] [facility] [phone] [place] [address] Klarissa Regan, EVELYN [address] [facility] [address] [place] [address] [id number] Encounter for supervision of normal first in second trimester (Primary Dx); 16 weeks gestation of ; Bacterial vaginosis; History of gHTN with prior ; History of marijuana use in early ; Nausea and vomiting of , antepartum Discharge Disposition: Discharge to home or self care Social History Tobacco Use Types Packs/Day Years Used Date Smoking Tobacco: Never Assessed Comments Yes Sex and Gender Information Value Date Recorded Sex Assigned at Not on file Legal Sex Female 1:19 AM BRUSH CLEANER Gender Identity Not on file Sexual Orientation Not on file documented as of this encounter Last Filed Vital Signs Vital Sign Reading Time Taken Comments Blood Pressure 112/60 12/31/2017 11:20 AM CDT Pulse - - Temperature - - Respiratory Rate - - Oxygen Saturation - - Inhaled Oxygen Concentration - - Weight 67.4 kg (148 lb 11.2 oz) 018 11:20 AM CDT Height - - Body Mass Index 24.74 12/03/2017 10:55 AM CDT documented in this encounter Patient Instructions * Patient Instructions* Klarissa Regan, COREMAKER APPRENTICE - 12/31/2017 10:15 AM CDT Patient Education at 15 to 18 Weeks WHAT YOU NEED TO KNOW: What changes are happening in my body? Now that you are in your second trimester, you have more energy. You may also feel hungrier than usual. You may start to experience other symptoms, such as heartburn or dizziness. You may be gaining about ?? to 1 pound a week, and your is beginning to show. You may need to start wearing maternity clothes. How do I care for myself at this stage of my ? ?? Manage heartburn by eating 4 or 5 small meals each day instead of large meals. Avoid spicy foods. Avoid eating right before bedtime. ?? Manage nausea and vomiting. Avoid fatty and spicy foods. Eat small meals throughout the day instead of large meals. Naheed may help to decrease nausea. Ask your healthcare provider about other ways of decreasing nausea and vomiting. ?? Eat a variety of healthy foods. [...] decrease the risk of certain defects. ?? Do not smoke. If you smoke, [...] changes are happening with my baby? By 18 weeks, your baby may be about 6 inches long from thetop of the head to the rump (baby's bottom). Your baby may weigh about 11 ounces. You may be able to feel your baby's movement at about 18 weeks or later. The first movements may not be that noticeable. They may feel like a fluttering sensation. Your baby also makes sucking movements and can hear certain sounds. What do I need to know about care? During the first 28 weeks of your , you will see your healthcare provider once a month. Your healthcare provider will check your blood pressure and weight. You may also need any of the following: ?? A urine test may also be done to check for sugar and protein. These can be signs of gestational diabetes or infection. ?? A blood test may be done to check for anemia (low iron level). ?? Fundal height check is a measurement of your uterus to check your baby's growth. This number is usually the same as the number of weeks that you have been . ?? An ultrasound may be done to check your baby's development. Your healthcare provider may be ableto tell you what your baby's gender is during the ultrasound. ?? Your baby's heart rate will be checked. When should I seek immediate care? ?? You have pain or cramping in your abdomen or low back. ?? You have heavy vaginal bleeding or clotting. ?? You pass material that looks like tissue or large clots. Collect the material and bring it with you. When should I contact my healthcare provider? ?? You cannot keep food or drinks down, and you are losing weight. ?? You have light bleeding. ?? You have chills or a fever. [...] refuse treatment. The above information is an custodial aide only. It is not intended as medical advice for individual conditions or treatments. Talk to your doctor, nurse or pharmacist before following any medical regimen to see if it is safe and effective for you. ?? 2016 [employer]. Information is for End User's use only and may not be sold, redistributed or otherwise used for commercial purposes. All illustrations and images included in CareNotes?? are the copyrighted property of [employer] or [employer]. documented in this encounter Ordered Prescriptions Prescription Sig Dispense Quantity Refills Last Filled Start Date End Date metroNIDAZOLE (FLAGYL) 500 mg tabletIndications: Bacterial vaginosis Take 1 tablet (500 mg total) by mouth 2 (two) times a day. 14 tablet 12/31/2017 06/12/2018 documented in this encounter Discharge Disposition Disposition Code Departure Means Destination Discharge to home or self care documented in this encounter Progress Notes * Klarissa Regan NP - 12/31/2017 10:15 AM CDT Subjective Pt presents today s/p dating u/s which reveals viable 16 2/7 week IUP. Missed prior dating u/s 2/2 oversleeping. Denies VB or cramping since last seen. Taking daily PNV but not yet taking ASA due to prior discussion on waiting for confirmation of GA before initiation. States n/v has improved. Continues to use Zofran ~ 1x q3 days, having a problem swallowing saliva and has been spitting. Did not take entire dose of her metronidazole due to working nights and BV sx resumed. Asking for a refill. Objective See ACOG Problem List Bacterial vaginosis (Chronic) Overview Begin metronidazole BID x7 days, rx re-sent Relevant Medications metroNIDAZOLE (FLAGYL) 500 mg tablet Overview labs UTD-reviewed all normal with exception of contaminated urine cx; urine cx re-sent today Quad screen declined Continue daily PNV Obtain anomaly u/s in 4 weeks MOD: anticipates MOF: bottle MOC: TBD F/u with COREMAKER APPRENTICE Jass in 5 weeks (provider OOT in 4 weeks) Relevant Orders US Ob Detail Anatomy Single Or First Gestation History of gHTN with prior Overview Begin daily low-dose ASA- plan to d/c at 36 weeks History of marijuana use in early Overview Previously reviewed risks to with continued use Continue to abstain for duration of Obtain random UDS each trimester Nausea and vomiting of , antepartum Overview Encouraged pt to continue small, frequent meals Recommend gum and sipping fluids instead of spitting if possible Continue zofran 8mg ODT prn documented in this encounter Plan of Treatment Not on file documented as of this encounter Procedures Procedure Name Priority Date/Time Associated Diagnosis Comments POCT URINALYSIS DIPSTICK Routine 12/31/2017 10:52 AM CDT Encounter for supervision of normal first in second trimester documented in this encounter Results * POCT urinalysis dipstick (12/31/2017 10:52 AM CDT) Glucose, ur, POC Negative Negative mg/dL Ketones, ur, POC Negative Negative Blood, ur, POC Negative Negative Protein, ur, POC Negative Negative Nitrite, ur, POC Negative Negative Leukocytes, ur, POC Negative Negative Lot Number [id number] Urine 12/31/2017 10:5 2 AM CDT Klarissa Regan NP POINT OF CARE TEST ORDERAB LES Final Result documented in this encounter Visit Diagnoses Diagnosis Encounter for supervision of normal first in second trimester- Primary 16 weeks gestation of Bacterial vaginosis Unspecified vaginitis and vulvovaginitis History of gHTN with prior History of marijuana use in early Nausea and vomiting of , antepartum documented in this encounter Care Teams Network Liaison Relationship Specialty Start Date End Date No, Physician PCP - General 12/03/17 01/03/23 documented as of this encounter
--- OUTSIDE RECORDS SUMMARY | 2024-07-28 06:41 | XMS_ITS | Encounter Summary ---
Author Organization [facility] Facility Care Team Providers Care Senior Procurement Manager Name Role Phone Unavailable Primary Care Provider Unavailabl e Encounter Details Date Type Department Care Team (Late st Contact Info) Description 09/19/2007 8:00 AM MODELING MANAGER - 09/19/2007 4:00 PM MODELING MANAGER Hospital Encounter [facility] Tone Ascencio MD [address] [phone] [place] [address] Gynecology Social History Tobacco Use Types Packs/Day Years Used Date Smoking Tobacco: Never Assessed Comments Unknown Sex and Gender Information Value Date Recorded Sex Assigned at Not on file Legal Sex Female 1:19 AM MODELING MANAGER Gender Identity Not on file Sexual Orientation Not on file documented as of this encounter Plan of Treatment Not on file documented as of this encounter Visit Diagnoses Not on filedocumented in this encounter
--- OUTSIDE RECORDS SUMMARY | 2024-07-28 06:41 | XMS_ITS | Encounter Summary ---
Author Organization [facility] Facility Care Team Providers Care Medical Reimbursement Manager Name Role Phone Unavailable Primary Care Provider Unavailabl e Encounter Details Date Type Department Care Team (Late st Contact Info) Description 09/30/2007 3:47 AM CDT - 10/02/2007 12:58 PM CDT Hospital Encounter [facility] Tone Ascencio MD [address] [phone] [place] [address] Pre-eclampsia, delivered; Other current maternal conditions classifiable elsewhere, with delivery; Delivery outcome of single liveborn ; Carrier or suspected carrier of group B Streptococcus Social History Tobacco Use Types Packs/Day Years Used Date Smoking Tobacco: Never Assessed Comments Unknown Sex and Gender Information Value Date Recorded Sex Assigned at Not on file Legal Sex Female 1:19 AM EMT Gender Identity Not on file Sexual Orientation Not on file documented as of this encounter Plan of Treatment Not on file documented as of this encounter Visit Diagnoses Diagnosis Pre-eclampsia, delivered Mild or unspecified pre-eclampsia, with delivery Other current maternal conditions classifiable elsewhere, with delivery Delivery outcome of single liveborn Carrier or suspected carrier of group B Streptococcus Carrier or suspected carrier of Group B streptococcus documented in this encounter
--- OUTSIDE RECORDS SUMMARY | 2024-07-28 06:41 | XMS_ITS | Encounter Summary ---
Author Organization [facility] Facility Care Team Providers Care Manuscript Editor Name Role Phone Unavailable Primary Care Provider Unavailabl e Encounter Details Date Type Department Care Team (Latest Contact Info) Description 07/04/2013 12:11 PM BLENDING TANK TENDER - 07/06/2013 1:43 PM BLENDING TANK TENDER Hospital Encounter [facility] Jorge Aguirre MD [address] [place] [address] Post term , delivered; Thrombocytopenia (HCC); Coagulation defects complicating , childbirth, or the puerperium, delivered; Delivery outcome of single liveborn infant; Personal history of allergy to sulfonamides Social History Tobacco Use Types Packs/Day Years Used Date Smoking Tobacco: Never Assessed Comments Unknown Sex and Gender Information Value Date Recorded Sex Assigned at Not on file Legal Sex Female 1:19 AM BLENDING TANK TENDER Gender Identity Not on file Sexual Orientation Not on file documented as of this encounter Last Filed Vital Signs Vital Sign Reading Time Taken Comments Blood Pressure - - Pulse - - Temperature - - Respiratory Rate - - Oxygen Saturation - - Inhaled Oxygen Concentration - - Weight 85.3 kg (187 lb 15.8 oz) 07/06/2013 8:03 AM BLENDING TANK TENDER Height 165.1 cm (5' 5 ) 07/04/2013 1:14 PM BLENDING TANK TENDER Body Mass Index 31.28 07/04/2013 1:14 PM BLENDING TANK TENDER documented in this encounter Plan of Treatment Not on file documented as of this encounter Procedures Procedure Name Priority Date/Time Associated Diagnosis Comments DISCHARGE LABORATORY CUMULATIVE REPORT Routine 07/06/2013 12:00 AM BLENDING TANK TENDER BLOOD CELL COUNT (CBC) Routine 07/05/2013 10:29 AM BLENDING TANK TENDER BLOOD CELL MORPHOLOGIC EXAM Routine 07/05/2013 10:29 AM BLENDING TANK TENDER BLOOD GAS, CORD Routine 07/04/2013 8:40 PM BLENDING TANK TENDER BLOOD GAS, CORD Routine 07/04/2013 8:40 PM BLENDING TANK TENDER BLOOD CELL COUNT (CBC) Routine 07/04/2013 11:33 AM BLENDING TANK TENDER BLOOD ABO, RH, INDIRECT AB SCREEN Routine 07/04/2013 11:33 AM BLENDING TANK TENDER SURGICAL PATHOLOGY 07/04/2013 documented in this encounter Results * Discharge Laboratory Cumulative Report (07/06/2013 12:00 AM BLENDING TANK TENDER) 07/06/2013 Narrative HISTORICAL RESULTS - 07/06/2013 3:21 PM BLENDING TANK TENDER ?[facility] ?Department of Laboratories ? [address] [facility] ? [place] [address] Patient Name: ??NGUYEN CHATTERJEE [facility] Rec Number: [id number] Fin Number: ?[id number] Date: ?1990 Sex/Age: ? Female 22 years Admit Date: ?07/04/2013 Discharge Date: 07/06/2013 Doctor: ?Jorge Benavides Facility: ?[facility] Location: ?[id number] Chart Printed: 07/06/2013 15:21 ?? * Abnormal ?? C Critical ?? f Footnote ?? ^ Corrected ?? L Low ?? H High ? i Interp Data ?? @ Reference Lab ?Chart Type:Cumulative ?BLOOD GASES ? Umbilical Blood Gases ?Test: pH ? pCO2 ?? pO2 ?Total CO2 ??Base Excess ? Reference: ? Units: ?mmHg ?? mmHg ?? mmol/L ? mmol/L 07/04/2013 ?? 20:40:00 ?? 7.25 ??f ??61 ??f ??12 ??f ??28 ??f ?-2.2 ??f 07/04/2013 ?? 20:40:00 ?? 7.32 ??f ??45 ??f ??29 ??f ??24 ??f ?-2.7 ??f 07/04/2013 20:40:00 ??pH: arterial 07/04/2013 20:40:00 ??pH: venous 07/04/2013 20:40:00 ??pCO2: arterial 07/04/2013 20:40:00 ??pCO2: venous 07/04/2013 20:40:00 ??pO2: arterial 07/04/2013 20:40:00 ??pO2: venous 07/04/2013 20:40:00 ??Total CO2: arterial 07/04/2013 20:40:00 ??Total CO2: venous 07/04/2013 20:40:00 ??Base Excess: arterial 07/04/2013 20:40:00 ??Base Excess: venous ?Test: Lactate WB Umbil ? Reference: ? Units: mmol/L 07/04/2013 ?? 20:40:00 ?? 3.0 ??f 07/04/2013 ?? 20:40:00 ?? 3.3 ??f 07/04/2013 20:40:00 ??Lactate WB Umbil: arterial ?BLOOD GASES ? Umbilical Blood Gases 07/04/2013 20:40:00 ??Lactate WB Umbil: venous ? COMPLETE BLOOD COUNT ?Test: WBC ?RBC ?Hgb ? Reference: [3.8-9.8] ??[3.90-5.00] ??[12.1-15.1] ? Units: K/cumm ? M/cumm ? g/dL 07/05/2013 ?? 10:29:00 ?? 14.0 ??H ?3.72 ??L ?10.3 ??L 07/04/2013 ?? 11:33:20 ?? 11.0 ??H ?4.06 ? 11.1 ??L ?Test: Hct ?Platelet Ct ??MCV ? Reference: [36.1-44.3] ??[140-440] ?[80.0-97.6] ? Units: % ?K/cumm ? fL 07/05/2013 ?? 10:29:00 ?? 32.2 ??L ?102 ??Lf ?86.8 07/04/2013 ?? 11:33:20 ?? 35.2 ??L ?107 ??L ? 86.8 07/05/2013 10:29:00 ??Platelet Ct: Verified by peripheral smear. no clumping seen ?Test: MCH ?MCHC ? RDW ? Reference: [26.7-33.7] ??[32.7-35.5] ??[11.8-14.6] ? Units: pg ? g/dL ? % 07/05/2013 ?? 10:29:00 ?? 27.6 ? 31.9 ??L ?14.2 07/04/2013 ?? 11:33:20 ?? 27.5 ? 31.7 ??L ?13.6 ?Test: MPV ? Reference: [6.8-10.4] ? Units: fL 07/05/2013 ?? 10:29:00 ?? 10.0 07/04/2013 ?? 11:33:20 ?? 9.6 ? AUTOMATED WHITE CELL DIFFERENTIAL ?Test: Neut Pct Auto ??Lymph Pct Auto ??Calhoun Pct Auto ? Reference: [38.7-74.5] ?[20.0-54.3] ? [4.3-13.5] ? Units: % ?% ? % 07/05/2013 ?? 10:29:00 ?? 76.6 ??H ?15.6 ??L ? 6.9 07/04/2013 ?? 11:33:20 ?? 77.3 ??H ?15.9 ??L ? 6.2 ?Test: Eos Pct Auto ??Baso Pct Auto ??Neut Abs Auto ? Reference: [0.0-6.0] ? [0.0-3.0] ?[1.8-6.6] ? Units: % ? % ?K/cumm 07/05/2013 ?? 10:29:00 ?? 0.6 ? 0.3 ?10.7 ??H 07/04/2013 ?? 11:33:20 ?? 0.3 ? 0.3 ?8.5 ??H ? AUTOMATED WHITE CELL DIFFERENTIAL ?Test: Lymph Abs Auto ??Calhoun Abs Auto ??Eos Abs Auto ? Reference: [1.2-3.3] ? [0.2-1.2] ?[0.0-0.5] ? Units: K/cumm ?K/cumm ? K/cumm 07/05/2013 ?? 10:29:00 ?? 2.2 ? 1.0 ?0.1 07/04/2013 ?? 11:33:20 ?? 1.8 ? 0.7 ?0.0 ?Test: Baso Abs Auto ??Morph Screen ? Reference: [0.0-0.2] ? Units: K/cumm 07/05/2013 ?? 10:29:00 ?? 0.0 ?See Below 07/04/2013 ?? 11:33:20 ?? 0.0 07/05/2013 ??10:29:00 ??Morph Screen ? Original results obtained required verification by alternate ? method(s). ??Refer to CBC and/or observation sections for detailed ? results. ? TRANSFUSION MEDICINE ?Test: Indirect Jeronimo. ??ABO/Rh Pat Interp ? Reference: ? Units: 07/04/2013 ?? 11:33:00 ?? Negative ?B Positive us Historical Provider MD LAB BLOOD ORDERABLES Destinee l Result Performing Organization Address [facility]/State/ZIP Co de Phone Number HISTORICAL RESULTS * (ABNORMAL) Blood cell count (CBC) (07/05/2013 10:29 AM BLENDING TANK TENDER) RBC 3.72(L) 3.90 - 5.00 M/cumm HISTORICAL RESULTS Hgb 10.3(L) 12.1 - 15.1 g/dl HISTORICAL RESULTS Hct 32.2(L) 36.1 - 44.3 % HISTORICAL RESULTS MCV 86.8 80.0 - 97.6 fl HISTORICAL RESULTS MCH 27.6 26.7 - 33.7 pg HISTORICAL RESULTS MCHC 31.9(L) 32.7 - 35.5 g/dl HISTORICAL RESULTS Rdw 14.2 11.8 - 14.6 % HISTORICAL RESULTS WBC 14.0(H) 3.8 - 9.8 K/cumm HISTORICAL RESULTS Platelets 102(L) 140 - 440 K/cumm HISTORICAL RESULTS Comment: Verified by peripheral smear. no clumping seen MPV 10.0 6.8 - 10.4 fl HISTORICAL RESULTS Neutrophils 76.6(H) 38.7 - 74.5 % HISTORICAL RESULTS Lymphocytes 15.6(L) 20.0 - 54.3 % HISTORICAL RESULTS Monos 6.9 4.3 - 13.5 % HISTORICAL RESULTS Eosinophils 0.6 0.0 - 6.0 % HISTORICAL RESULTS Basophils 0.3 0.0 - 3.0 % HISTORICAL RESULTS Neutrophils, abs 10.7(H) 1.8 - 6.6 K/cumm HISTORICAL RESULTS Lymphocytes, abs 2.2 1.2 - 3.3 K/cumm HISTORICAL RESULTS Monocytes, absolute 1.0 0.2 - 1.2 K/cumm HISTORICAL RESULTS Eosinophils, abs 0.1 0.0 - 0.5 K/cumm HISTORICAL RESULTS Basophils, abs 0.0 0.0 - 0.2 K/cumm HISTORICAL RESULTS Blood specimen (specimen) 07/05/2013 10:29 AM BLENDING TANK TENDER Laney Infante MD LAB BLOOD ORDERABLES Fi nal Result HISTORICAL RESULTS * Blood cell morphologic exam (07/05/2013 10:29 AM BLENDING TANK TENDER) Morphology scrn Original results obtained required verification by alternate method(s). Refer to CBC and/or observation sections for detailed results HISTORICAL RESULTS Blood specimen (specimen) 07/05/2013 10:29 AM BLENDING TANK TENDER Laney Infante MD LAB BLOOD ORDERABLES Fi nal Result Performing Organization Address [place]/[facility] Co de Phone Number HISTORICAL RESULTS * Blood gas, cord (07/04/2013 8:40 PM BLENDING TANK TENDER) pH, cord 7.25 HISTORICAL RESULTS Comment:arterial PCO2, cord 61 mm Hg HISTORICA L RESULTS Comment:arterial PO2, cord 12 mm Hg HISTORICAL RESULTS Comment:arterial CO2, cord, calc 28 mmol/L HISTORICAL RESULTS Comment:arterial BE, cord -2.2 mmol/L HISTORICAL RESULTS Comment:arterial Lactic acid, cord 3.0 mmol/L HISTORICAL RESULTS Comment:arterial Cord blood 07/04/2013 8:40 PM BLENDING TANK TENDER Result [facility] Historical Provider LAB BLOOD ORDERABLES Destinee l Result Performing Organization Address [facility] de Phone Number HISTORICAL RESULTS * Blood gas, cord (07/04/2013 8:40 PM BLENDING TANK TENDER) pH, cord 7.32 HISTORICAL RESULTS Comment:venous PCO2, cord 45 mm Hg HISTORICA L RESULTS Comment:venous PO2, cord 29 mm Hg HISTORICAL RESULTS Comment:venous CO2, cord, calc 24 mmol/L HISTORICAL RESULTS Comment:venous BE, cord -2.7 mmol/L HISTORICAL RESULTS Comment:venous Lactic acid, cord 3.3 mmol/L HISTORICAL RESULTS Comment:venous Cord blood 07/04/2013 8:40 PM BLENDING TANK TENDER Historical Provider LAB BLOOD ORDERABLES Destinee l Result Performing Organization Address [place]/[facility] de Phone Number HISTORICAL RESULTS * (ABNORMAL) Blood cell count (CBC) (07/04/2013 11:33 AM BLENDING TANK TENDER) WBC 11.0(H) 3.8 - 9.8 K/cumm HISTORICAL RESULTS RBC 4.06 3.90 - 5.00 M/cumm HISTORICAL RESULTS Hgb 11.1(L) 12.1 - 15.1 g/dl HISTORICAL RESULTS Hct 35.2(L) 36.1 - 44.3 % HISTORICAL RESULTS MCV 86.8 80.0 - 97.6 fl HISTORICAL RESULTS MCH 27.5 26.7 - 33.7 pg HISTORICAL RESULTS MCHC 31.7(L) 32.7 - 35.5 g/dl HISTORICAL RESULTS Rdw 13.6 11.8 - 14.6 % HISTORICAL RESULTS Platelets 107(L) 140 - 440 K/cumm HISTORICAL RESULTS MPV 9.6 6.8 - 10.4 fl HISTORICAL RESULTS Neutrophils 77.3(H) 38.7 - 74.5 % HISTORICAL RESULTS Lymphocytes 15.9(L) 20.0 - 54.3 % HISTORICAL RESULTS Monos 6.2 4.3 - 13.5 % HISTORICAL RESULTS Eosinophils 0.3 0.0 - 6.0 % HISTORICAL RESULTS Basophils 0.3 0.0 - 3.0 % HISTORICAL RESULTS Neutrophils, abs 8.5(H) 1.8 - 6.6 K/cumm HISTORICAL RESULTS Lymphocytes, abs 1.8 1.2 - 3.3 K/cumm HISTORICAL RESULTS Monocytes, absolute 0.7 0.2 - 1.2 K/cumm HISTORICAL RESULTS Eosinophils, abs 0.0 0.0 - 0.5 K/cumm HISTORICAL RESULTS Basophils, abs 0.0 0.0 - 0.2 K/cumm HISTORICAL RESULTS Blood specimen (specimen) 07/04/2013 11:33 AM BLENDING TANK TENDER Jorge Benavides MD LAB BLOOD ORDERABLES Final Result Performing Organization Address [facility] de Phone Number HISTORICAL RESULTS * Blood ABO, Rh, indirect ab screen (07/04/2013 11:33 AM BLENDING TANK TENDER) Jeronimo, indirect Negative HISTORICAL RESULTS ABO, Rho(D) B Positive HISTORI RACHEL RESULTS Blood specimen (specimen) 07/04/2013 11:33 AM BLENDING TANK TENDER Jorge Benavides MD LAB BLOOD ORDERABLES Final Result Performing Organization Address [facility] Co de Phone Number HISTORICAL RESULTS * Surgical pathology (07/04/2013) Narrative 07/04/2013 Ordered by an unspecified provider. Historical Provider LAB PATHOLOGY ORDERABLES Final Result documented in this encounter Visit Diagnoses Diagnosis Post term , delivered Post term , delivered with or without mention of antepartum condition Thrombocytopenia (HCC) Unspecified thrombocytopenia Coagulation defects complicating , childbirth, or the puerperium, delivered Delivery outcome of single liveborn infant Personal history of allergy to sulfonamides documented in this encounter
--- OUTSIDE RECORDS SUMMARY | 2024-07-28 06:41 | XMS_ITS | Encounter Summary ---
Author Organization [facility] Facility Care Team Providers Care Demolition Crane Operator Name Role Phone Unavailable Primary Care Provider Unavailabl e Encounter Details Date Type Department Care Team (Late st Contact Info) Description 07/01/2013 2:55 PM DEGREASER - 07/01/2013 4:00 PM DEGREASER Hospital Encounter [facility] Tone Ascencio MD [address] [facility] [address] [phone] [place] [address] Gynecology Encounter for supervision of normal in multigravida Social History Tobacco Use Types Packs/Day Years Used Date Smoking Tobacco: Never Assessed Comments Unknown Sex and Gender Information Value Date Recorded Sex Assigned at Not on file Legal Sex Female 1:19 AM DEGREASER Gender Identity Not on file Sexual Orientation Not on file documented as of this encounter Plan of Treatment Not on file documented as of this encounter Visit Diagnoses Diagnosis Encounter for supervision of normal in multigravida documented in this encounter
--- OUTSIDE RECORDS SUMMARY | 2024-07-28 06:41 | XMS_ITS | Encounter Summary ---
Author Organization [employer]/[facility] Facility Care Team Providers Care Load Planner Name Role Phone Unavailable Primary Care Provider Unavailabl e Encounter Details Date Type Department Care Team (Late st Contact Info) Description 02/28/2008 2:25 PM CDT - 02/28/2008 4:00 PM CDT Hospital Encounter [facility] Khloe Mendoza MD [address] [facility] [address] [place] [address] Gynecology Social History Tobacco Use Types Packs/Day Years Used Date Smoking Tobacco: Never Assessed Comments Unknown Sex and Gender Information Value Date Recorded Sex Assigned at Not on file Legal Sex Female 1:19 AM STUDIO HAND Gender Identity Not on file Sexual Orientation Not on file documented as of this encounter Plan of Treatment Not on file documented as of this encounter Visit Diagnoses Not on filedocumented in this encounter
--- OUTSIDE RECORDS SUMMARY | 2024-07-28 06:41 | XMS_ITS | Encounter Summary ---
Author Organization [facility] Facility Care Team Providers Care General Duty Nurse Name Role Phone Unavailable Primary Care Provider Unavailabl e Encounter Details Date Type Department Care Team (Late st Contact Info) Description 05/15/2013 9:10 AM CDT - 05/15/2013 4:00 PM CDT Hospital Encounter [facility] Belén Chaves MD [address] [place] [address] Social History Tobacco Use Types Packs/Day Years Used Date Smoking Tobacco: Never Assessed Comments Unknown Sex and Gender Information Value Date Recorded Sex Assigned at Not on file Legal Sex Female 1:19 AM SUCTION WORKER Gender Identity Not on file Sexual Orientation Not on file documented as of this encounter Plan of Treatment Not on file documented as of this encounter Visit Diagnoses Not on filedocumented in this encounter
--- OUTSIDE RECORDS SUMMARY | 2024-07-28 06:41 | XMS_ITS | Encounter Summary ---
Author Organization [facility] Address [address] [place] [address] Phone Care Team Providers Care Block Inspector Name Role Phone No, Physician Primary Care Provider [phone] Reason for Visit * Reason Onset Date Comments Walker results 03/19/2018 Encounter Details Date Type Department Care Team (Late st Contact Info) Description 03/19/2018 Telephone [facility] Genetic Counseling [address] [facility] [address] [place] [address] Carri Castano CGC [address] [facility] [address] [place] [address] Walker results Social History Tobacco Use Types Packs/Day Years Used Date Smoking Tobacco: Never Smokeless Tobacco: Never Comments Yes Sex and Gender Information Value Date Recorded Sex Assigned at Not on file Legal Sex Female 1:19 AM OSTEOPATHY DOCTOR Gender Identity Not on file Sexual Orientation Not on file documented as of this encounter Miscellaneous Notes * Telephone Encounter - Carri Castano CGC - 03/19/2018 8:29 AM CDT Patient notified of negative Walker results, knew female gender from ultrasound documented in this encounter Plan of Treatment Not on file documented as of this encounter Visit Diagnoses Not on filedocumented in this encounter Care Teams Block Inspector Relationship Specialty Start Date End Date No, Physician PCP - General 12/03/17 01/03/23 documented as of this encounter
--- OUTSIDE RECORDS SUMMARY | 2024-07-28 06:41 | XMS_ITS | Encounter Summary ---
Author Organization [facility] Healthcare Address [address] [place] [address] Care Team Providers Care Web Merchandiser Name Role Phone No, Physician Primary Care Provider [phone] Encounter Details Date Type Department Care Team (Late st Contact Info) Description 12/15/2017 Telephone [facility] [address] [facility] 3rd Floor [address] [place] [address] Antoinette Jean Baptiste MD [address] [facility] [address] [place] [address] Social History Tobacco Use Types Packs/Day Years Used Date Smoking Tobacco: Never Assessed Comments Yes Sex and Gender Information Value Date Recorded Sex Assigned at Not on file Legal Sex Female 1:19 AM FLOOR SPECIALIST Gender Identity Not on file Sexual Orientation Not on file documented as of this encounter Miscellaneous Notes * Telephone Encounter - Sil Duncan - 12/21/2017 1:35 PM CDT complete documented in this encounter Plan of Treatment Not on file documented as of this encounter Visit Diagnoses Not on filedocumented in this encounter Care Teams Web Merchandiser Relationship Specialty Start Date End Date No Physician PCP - General 12/03/17 01/03/23 documented as of this encounter
--- OUTSIDE RECORDS SUMMARY | 2024-07-28 06:41 | XMS_ITS | Encounter Summary ---
Author Organization [facility] Facility Care Team Providers Care Fret Saw Operator Name Role Phone Unavailable Primary Care Provider Unavailabl e Encounter Details Date Type Department Care Team (Late st Contact Info) Description 07/18/2007 10:33 AM SUPERVISOR LEAF SPRING FABRICATION - 07/18/2007 4:00 PM SUPERVISOR LEAF SPRING FABRICATION Hospital Encounter [facility] Tone Ascencio MD [address] [facility] [address] [phone] [place] [address] Gynecology Encounter for supervision of normal in multigravida Social History Tobacco Use Types Packs/Day Years Used Date Smoking Tobacco: Never Assessed Comments Unknown Sex and Gender Information Value Date Recorded Sex Assigned at Not on file Legal Sex Female 1:19 AM SUPERVISOR LEAF SPRING FABRICATION Gender Identity Not on file Sexual Orientation Not on file documented as of this encounter Plan of Treatment Not on file documented as of this encounter Visit Diagnoses Diagnosis Encounter for supervision of normal in multigravida documented in this encounter
--- OUTSIDE RECORDS SUMMARY | 2024-07-28 06:41 | XMS_ITS | Encounter Summary ---
Author Organization [facility] Facility Care Team Providers Care Milling Supervisor Name Role Phone Unavailable Primary Care Provider Unavailabl e Encounter Details Date Type Department Care Team (Late st Contact Info) Description 02/06/2013 2:54 PM CDT - 02/06/2013 4:00 PM CDT Hospital Encounter [facility] Tone Ascencio MD [address] [phone] [place] [address] Gynecology Encounter for supervision of normal in multigravida Social History Tobacco Use Types Packs/Day Years Used Date Smoking Tobacco: Never Assessed Comments Unknown Sex and Gender Information Value Date Recorded Sex Assigned at Not on file Legal Sex Female 1:19 AM RN INTERN Gender Identity Not on file Sexual Orientation Not on file documented as of this encounter Plan of Treatment Not on file documented as of this encounter Procedures Procedure Name Priority Date/Time Associated Diagnosis Comments URINE DRUG SCREEN Routine 02/06/2013 3:1 8 PM CDT SERUM RUBELLA AB, IGG Routine 02/06/2013 11:05 AM CDT SERUM RAPID PLASMA REAGIN (RPR) Routine 02/06/2013 11:05 AM CDT SERUM HUMAN IMMUNODEFICIENCY VIRUS (HIV) 1, 2 AB Routine 02/06/2013 11:05 AM CDT SERUM HEPATITIS C AB Routine 02/06/2013 11:05 AM CDT SERUM HEPATITIS B SURFACE AG Routine 02/06/2013 11:05 AM CDT BLOOD CELL COUNT (CBC) Routine 3 11:05 AM CDT BLOOD ABO, RH, INDIRECT AB SCREEN Routine 02/06/2013 11:05 AM CDT DISCHARGE LABORATORY CUMULATIVE REPORT Routine 02/06/2013 12:00 AM CDT documented in this encounter Results * Urine drug screen (02/06/2013 3:18 PM CDT) Amphetamine, ur None detected HISTORICAL RESULTS Comment: Interpretive Data Immunoassay Screen cutoff level 300 ng/mL. Drug results are to be used only for medical purposes. ??All results, especially unconfirmed screening results, must not be used for non medical purposes. Current interpretive data was last revised 2006. Barbiturates, ur None detected HISTORICAL RESULTS Comment: Interpretive Data Immunoassay Screen cutoff level 200 ng/mL. Drug results are to be used only for medical purposes. ??All results, especially unconfirmed screening results, must not be used for non medical purposes. Current interpretive data was last revised 2006. Benzodiazepines, ur None detected HISTORICAL RESULTS Comment: Interpretive Data Immunoassay Screen cutoff level 200 ng/mL. Drug results are to be used only for medical purposes. ??All results, especially unconfirmed screening results, must not be used for non medical purposes. Current interpretive data was last revised 2006. Cannabinoids, ur None detected HISTORICAL RESULTS Comment: Interpretive Data Immunoassay Screen cutoff level 50 ng/mL. Drug results are to be used only for medical purposes. ??All results, especially unconfirmed screening results, must not be used for non medical purposes. Current interpretive data was last revised 2006. Cocaine, ur None detected HISTORICAL RESULTS Comment: Interpretive Data Immunoassay Screen cutoff level 150 ng/mL. Drug results are to be used only for medical purposes. ??All results, especially unconfirmed screening results, must not be used for non medical purposes. Current interpretive data was last revised 2006. Methadone, ur None detected HISTORICAL RESULTS Comment: Interpretive Data Immunoassay Screen cutoff level 300 ng/mL. Drug results are to be used only for medical purposes. ??All results, especially unconfirmed screening results, must not be used for non medical purposes. Current interpretive data was last revised 2006. Opiates, qual, ur None detected HISTORICAL RESULTS Comment: Interpretive Data Immunoassay Screen cutoff level 300 ng/mL. Drug results are to be used only for medical purposes. ??All results, especially unconfirmed screening results, must not be used for non medical purposes. Current interpretive data was last revised 2006. Phencyclidine, qual, ur None detected HISTORICAL RESULTS Comment: Interpretive Data Immunoassay Screen cutoff level 25 ng/mL. Drug results are to be used only for medical purposes. ??All results, especially unconfirmed screening results, must not be used for non medical purposes. Current interpretive data was last revised 2006. Urine 02/06/2013 3:18 PM CDT Vanessa Rendon LAB BLOOD ORDERABLES Final [facility] Performing Organization Address City/[facility] de Phone Number HISTORICAL RESULTS * Serum Hepatitis C ab (02/06/2013 11:05 AM CDT) HCV ab Negative NEG HISTORICAL RESULTS Serum 02/06/2013 11:0 5 AM CDT Narrative HISTORICAL RESULTS - 02/07/2013 10:17 AM CDT LAB Frequency Standing Order? No Expiration Date: Interpretive Data If confirmation is required, call Laboratory Customer Service to request sample to be sent to [facility] for Hepatitis C Virus (HCV) RNA Detection and Quantitation by Real-Time Reverse Curing Machine Operator-PCR (RT-PCR). Current interpretive data was last revised on 2011 Vanessa Rendon LAB BLOOD ORDERABLES Final Resu Performing Organization Address City/[facility] Co de Phone Number HISTORICAL RESULTS * Serum Human Immunodeficiency virus (HIV) 1, 2 ab (02/06/2013 11:05 AM CDT) HIV ab Negative NEG HISTORICAL RESULTS Serum 02/06/2013 11:0 5 AM CDT Narrative HISTORICAL RESULTS - 02/06/2013 3:54 PM CDT LAB Frequency Standing Order? No Expiration Date: us Vanessa Rendon LAB BLOOD ORDERABLES Final Resu lt Performing Organization Address [facility] de Phone Number HISTORICAL RESULTS * Serum Rubella ab, IgG (02/06/2013 11:05 AM CDT) Rubella ab, IgG Positive HISTORICAL RESULTS Serum 02/06/2013 11:0 5 AM CDT Narrative HISTORICAL RESULTS - 02/07/2013 3:31 PM CDT LAB Frequency Standing Order? No Expiration Date: us Vanessa Rendon LAB BLOOD ORDERABLES Final Resu lt Performing Organization Address [facility] Phone Number HISTORICAL RESULTS * Serum rapid plasma reagin (RPR) (02/06/2013 11:05 AM CDT) RPR Nonreactive HISTORIC AL RESULTS Serum 02/06/2013 11:0 5 AM CDT Narrative HISTORICAL RESULTS - 02/06/2013 2:38 PM CDT LAB Frequency Standing Order? No Expiration Date: Vanessa Rendon LAB BLOOD ORDERABLES Final Resu lt Performing Organization Address [facility] de Phone Number HISTORICAL RESULTS * Serum Hepatitis B surface ag (02/06/2013 11:05 AM CDT) HBV surface ag Negative NEG HISTO RICAL RESULTS Serum 02/06/2013 11:0 5 AM CDT Narrative HISTORICAL RESULTS - 02/07/2013 10:34 AM CDT LAB Frequency Standing Order? No Expiration Date: us Rizzora Hernández Justice LAB BLOOD ORDERABLES Final Resu lt Performing Organization Address [facility] de Phone Number HISTORICAL RESULTS * (ABNORMAL) Blood cell count (CBC) (02/06/2013 11:05 AM CDT) WBC 10.1(H) 3.8 - 9.8 K/cumm HISTORICAL RESULTS RBC 3.85(L) 3.90 - 5.00 M/cumm HISTORICAL RESULTS Hgb 12.6 12.1 - 15.1 g/dl HISTORICAL RESULTS Hct 36.7 36.1 - 44.3 % HISTORICAL RESULTS MCV 95.3 80.0 - 97.6 fl HISTORICAL RESULTS MCH 32.6 26.7 - 33.7 pg HISTORICAL RESULTS MCHC 34.2 32.7 - 35.5 g/dl HISTORICAL RESULTS Rdw 12.8 11.8 - 14.6 % HISTORICAL RESULTS Platelets 115(L) 140 - 440 K/cumm HISTORICAL RESULTS MPV 9.9 6.8 - 10.4 fl HISTORICAL RESULTS Neutrophils 71.5 38.7 - 74.5 % HISTORICAL RESULTS Lymphocytes 21.5 20.0 - 54.3 % HISTORICAL RESULTS Monos 5.8 4.3 - 13.5 % HISTORICAL RESULTS Eosinophils 0.8 0.0 - 6.0 % HISTORICAL RESULTS Basophils 0.4 0.0 - 3.0 % HISTORICAL RESULTS Neutrophils, abs 7.2(H) 1.8 - 6.6 K/cumm HISTORICAL RESULTS Lymphocytes, abs 2.2 1.2 - 3.3 K/cumm HISTORICAL RESULTS Monocytes, absolute 0.6 0.2 - 1.2 K/cumm HISTORICAL RESULTS Eosinophils, abs 0.1 0.0 - 0.5 K/cumm HISTORICAL RESULTS Basophils, abs 0.0 0.0 - 0.2 K/cumm HISTORICAL RESULTS Blood specimen (specimen) 02/06/2013 11:05 AM CDT Narrative HISTORICAL RESULTS - 02/06/2013 12:26 PM CDT LAB Frequency Standing Order? No Expiration Date: us Vanessa Rendon LAB BLOOD ORDERABLES Final Resu lt HISTORICAL RESULTS * Blood ABO, Rh, indirect ab screen (02/06/2013 11:05 AM CDT) Jeronimo, indirect Negative HISTORICAL RESULTS ABO, Rho(D) B Positive HISTORI RACHEL RESULTS Blood specimen (specimen) 02/06/2013 11:05 AM CDT Narrative HISTORICAL RESULTS - 02/06/2013 1:18 PM CDT LAB Frequency Standing Order? No Expiration Date: us Vanessa Rendon LAB BLOOD ORDERABLES Final Resu lt HISTORICAL RESULTS * Discharge Laboratory Cumulative Report (02/06/2013 12:00 AM CDT) 02/06/2013 Narrative HISTORICAL RESULTS - 02/08/2013 3:19 AM CDT ?[facility] ?Department of Laboratories ? [facility] [place] ? [place] [address] Patient Name: ??NGUYEN CHATTERJEE [facility] Rec Number: [id number] Fin Number: ?[id number] Date: ?1990 Sex/Age: ? Female 22 years Admit Date: ?02/06/2013 Discharge Date: 02/06/2013 Doctor: ?Gynecology, Resident Facility: ?[facility] Location: ?CLOG Chart Printed: 02/08/2013 03:19 ?? * Abnormal ?? C Critical ?? f Footnote ?? ^ Corrected ?? L Low ?? H High ? i Interp Data ?? @ Reference Lab ? Chart Type:Periodic ?SEROLOGY - VIRAL TESTS ?Test: Rubella, IgG ? Reference: ? Units: 02/06/2013 ?? 16:05:00 ?? See Below 02/06/2013 ??16:05:00 ??Rubella, IgG ? Positive 02/06/2013 16:05:00 ??OB Panel Rubella IgG: LAB Frequency Standing Order? No Expiration Date: ? CANCELLED TESTS Date ?Time ?Test ? Cancel Reason 02/06/2013 ??15:50:00 ??Drug Scrn 7 ??Lab Operations Cancel 02/06/2013 ??16:11:00 ??IA ANGCT ? Lab Operations Cancel 02/06/2013 ??16:11:00 ??UA Flex C/S ??Lab Operations Cancel us Historical Provider LAB BLOOD ORDERABLES Destinee l Result HISTORICAL RESULTS documented in this encounter Visit Diagnoses Diagnosis Encounter for supervision of normal in multigravida documented in this encounter
--- OUTSIDE RECORDS SUMMARY | 2024-07-28 06:41 | XMS_ITS | Encounter Summary ---
Author Organization [facility] Facility Care Team Providers Care Sap Pp Consultant Name Role Phone Unavailable Primary Care Provider Unavailabl e Encounter Details Date Type Department Care Team (Late st Contact Info) Description 06/06/2013 7:29 AM CLINICAL TEAM MANAGER - 06/06/2013 4:00 PM CLINICAL TEAM MANAGER Hospital Encounter [facility] Belén Chaves MD [address] [address] Social History Tobacco Use Types Packs/Day Years Used Date Smoking Tobacco: Never Assessed Comments Unknown Sex and Gender Information Value Date Recorded Sex Assigned at Not on file Legal Sex Female 1:19 AM CLINICAL TEAM MANAGER Gender Identity Not on file Sexual Orientation Not on file documented as of this encounter Plan of Treatment Not on file documented as of this encounter Visit Diagnoses Not on filedocumented in this encounter
--- OUTSIDE RECORDS SUMMARY | 2024-07-28 06:41 | XMS_ITS | Encounter Summary ---
Author Organization [facility] Facility Care Team Providers Care Feather Baler Name Role Phone Unavailable Primary Care Provider Unavailabl e Encounter Details Date Type Department Care Team (Late st Contact Info) Description 06/12/2012 2:55 PM [facility] TECH - 06/12/2012 4:00 PM [facility] Hospital Encounter [facility] Khloe Mendoza MD [address] [place] [address] Gynecology Leukorrhea; Trichomonal vulvovaginitis; examination or test, negative result Social History Tobacco Use Types Packs/Day Years Used Date Smoking Tobacco: Never Assessed Comments Unknown Sex and Gender Information Value Date Recorded Sex Assigned at Not on file Legal Sex Female 1:19 AM [facility] TECH Gender Identity Not on file Sexual Orientation Not on file documented as of this encounter Plan of Treatment Not on file documented as of this encounter Visit Diagnoses Diagnosis Leukorrhea Leukorrhea, not specified as infective Trichomonal vulvovaginitis examination or test, negative result documented in this encounter
--- OUTSIDE RECORDS SUMMARY | 2024-07-28 06:41 | XMS_ITS | Encounter Summary ---
Author Organization [facility] Healthcare Address [address] [place] [address] Care Team Providers Care Lending Manager Name Role Phone No, Physician Primary Care Provider [phone] Reason for Visit * Diagnostic Imaging (Routine) - Closed Specialty Diagnoses / Procedures Referred By Contchasity t Referred To Contact Diagnoses Encounter for supervision of normal , antepartum, unspecified Encounter for anatomic survey Procedures US Ob 14 Weeks Or Over Song Escobar MD Phone: tel: fax: [facility] (All Locations) Referral ID Status Reason Start Date Expiration Date Visits Re quested Visits Authorized [id number] Closed 12/31/2017 07/12/2019 1 1 Encounter Details Date Type Department Care Team (Latest Contact Info) Description 02/04/2018 2:00 PM CDT Ancillary Procedure [facility] Outpatient Health - Ultrasound [address] [place] [address] Outpatient Health [place], [place] [id number] Song Escobar MD [address] [place] [address] [phone] [place] [address] Encounter for supervision of normal , antepartum, unspecified ; Encounter for anatomic survey Social History Tobacco Use Types Packs/Day Years Used Date Smoking Tobacco: Never Smokeless Tobacco: Never Comments Yes Sex and Gender Information Value Date Recorded Sex Assigned at Not on file Legal Sex Female 1:19 AM ANALYSIS ANALYST Gender Identity Not on file Sexual Orientation Not on file documented as of this encounter Plan of Treatment Not on file documented as of this encounter Procedures Procedure Name Priority Date/Time Associated Diagnosis Comments US OB 14 WEEKS OR OVER Schedule Routine, Read Routine (OP Routine) 02/04/2018 2:15 PM CDT Encounter for supervision of normal , antepartum, unspecified Encounter for anatomic survey documented in this encounter Results * US Ob 14 Weeks Or Over (02/04/2018 2:15 PM CDT) Placenta Details posterior, Previa-no VIEWPOINT Estimated Weight 440 g&grams VIEWPOINT Presentation Vertex VIEWPOINT Fetus# Fetus1 VIEWPOINT Anatomical Region Laterality Modality Abdomen N/A Ultrasound 02/04/2018 2:1 7 PM CDT Song Escobar MD IMG OB US PROCEDURES Final R esult documented in this encounter Visit Diagnoses Diagnosis Encounter for supervision of normal , antepartum, unspecified Encounter for anatomic survey documented in this encounter Care Teams Lending Manager Relationship Specialty Start Date End Date No, Physician PCP - General 12/03/17 01/03/23 documented as of this encounter
--- OUTSIDE RECORDS SUMMARY | 2024-07-28 06:41 | XMS_ITS | Encounter Summary ---
Author Organization [facility] Facility Care Team Providers Care Clay Hoister Name Role Phone Unavailable Primary Care Provider Unavailabl e Encounter Details Date Type Department Care Team (Late st Contact Info) Description 08/29/2007 8:41 AM FIELD HAULER - 08/29/2007 4:00 PM FIELD HAULER Hospital Encounter [facility] Tone Ascencio MD [address] [phone] [place] [address] Gynecology Encounter for supervision of normal in multigravida; Screening examination for sexually transmitted disease; Special screening examination for other specified chlamydial diseases Social History Tobacco Use Types Packs/Day Years Used Date Smoking Tobacco: Never Assessed Comments Unknown Sex and Gender Information Value Date Recorded Sex Assigned at Not on file Legal Sex Female 1:19 AM FIELD HAULER Gender Identity Not on file Sexual Orientation Not on file documented as of this encounter Plan of Treatment Not on file documented as of this encounter Visit Diagnoses Diagnosis Encounter for supervision of normal in multigravida Screening examination for sexually transmitted disease Special screening examination for other specified chlamydial diseases documented in this encounter
--- OUTSIDE RECORDS SUMMARY | 2024-07-28 06:41 | XMS_ITS | Encounter Summary ---
Author Organization [facility] Healthcare Address [address] [place] [id number] Care Team Providers Care Speech Professor Name Role Phone No, Physician Primary Care Provider [phone] Reason for Visit * Diagnostic Imaging (Routine) - Closed Specialty Diagnoses / Procedures Referred By Contchasity t Referred To Contact Diagnoses 26 weeks gestation of Procedures US Ob Follow Up Klarissa Regan NP Phone: tel: fax: [facility] (All Locations) Referral ID Status Reason Start Date Expiration Date Visits Re quested Visits Authorized [id number] Closed 03/25/2018 06/26/2018 3 3 Encounter Details Date Type Department Care Team (Latest Contact Info) Description 03/26/2018 1:45 PM CDT Ancillary Procedure [facility] Outpatient Health - Ultrasound [address] [facility] [place] [address] Klarissa Regan, EVELYN [address] [place] [address] DR SAM [address] [place] [id number] 26 weeks gestation of Discharge Disposition: Discharge to home or self care Social History Tobacco Use Types Packs/Day Years Used Date Smoking Tobacco: Never Smokeless Tobacco: Never Comments Yes Sex and Gender Information Value Date Recorded Sex Assigned at Not on file Legal Sex Female 1:19 AM WELL DRILL OPERATOR ROTARY DRILL Gender Identity Not on file Sexual Orientation Not on file documented as of this encounter Discharge Disposition Disposition Code Departure Means Destination Discharge to home or self care documented in this encounter Plan of Treatment Not on file documented as of this encounter Procedures Procedure Name Priority Date/Time Associated Diagnosis Comments US OB FOLLOW UP Schedule Routine, Read Routine (OP Routine) 03/26/2018 2:04 PM CDT 26 weeks gestation of documented in this encounter Results * US Ob Follow Up (03/26/2018 2:04 PM CDT) Placenta Details posterior, Previa-no VIEWPOINT Estimated Weight 1,290 g&grams VIEWPOINT Presentation Vertex VIEWPOINT Fetus# Fetus1 VIEWPOINT Anatomical Region Laterality Modality Abdomen N/A Ultrasound 03/26/2018 2:07 PM CDT us Klarissa Regan AGRICULTURAL RESEARCH ENGINEER IMG OB US PROCEDURES Final Result documented in this encounter Visit Diagnoses Diagnosis 26 weeks gestation of documented in this encounter Care Teams Speech Professor Relationship Specialty Start Date End Date No, Physician PCP - General 12/03/17 01/03/23 documented as of this encounter
--- OUTSIDE RECORDS SUMMARY | 2024-07-28 06:41 | XMS_ITS | Encounter Summary ---
Author Organization [facility] Address [address] [place] [address] Care Team Providers Care Jewel Diameter Gauger Name Role Phone No, Physician Primary Care Provider [phone] Reason for Referral * Diagnostic Imaging (Routine) - Closed Specialty Diagnoses / Procedures Referred By Contac t Referred To Contact Diagnoses Encounter for supervision of normal , antepartum, unspecified Encounter for anatomic survey Procedures US Ob 14 Weeks Or Over Song Escobar MD Phone: tel: fax: [facility] (All Locations) Referral ID Status Reason Start Date Expiration Date Visits Re quested Visits Authorized [id number] Closed 12/31/2017 07/12/2019 1 1 Reason for Visit * Diagnostic Imaging (Routine) - Closed Specialty Diagnoses / Procedures Referred By Contac t Referred To Contact Diagnoses Encounter for supervision of normal , antepartum, unspecified Procedures US Nuchal Translucency Klarissa Regan NP Phone: tel: fax: [facility] (All Locations) Referral ID Status Reason Start Date Expiration Date Visits Re quested Visits Authorized [id number] Closed 12/14/2017 06/12/2018 1 1 Encounter Details Date Type Department Care Team (Latest Contact Info) Description 12/31/2017 9:00 AM CDT Ancillary Procedure [facility] Outpatient Health - Ultrasound [address] [place] [address] [place] [address] Klarissa Regan NP [address] [facility] [address] [place] [address] Encounter for anatomic survey (Primary Dx); Encounter for supervision of normal , antepartum, unspecified Social History Tobacco Use Types Packs/Day Years Used Date Smoking Tobacco: Never Assessed Comments Yes Sex and Gender Information Value Date Recorded Sex Assigned at Not on file 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 Gender Identity Not on file Sexual Orientation Not on file documented as of this encounter Plan of Treatment Not on file documented as of this encounter Procedures Procedure Name Priority Date/Time Associated Diagnosis Comments US NUCHAL TRANSLUCENCY Schedule Routine, Read Routine (OP Routine) 12/31/2017 9:19 AM CDT Encounter for supervision of normal , antepartum, unspecified documented in this encounter Results * US Ob 14 Weeks Or Over (02/04/2018 2:15 PM CDT) Placenta Details posterior, Previa-no VIEWPOINT Estimated Weight 440 g&grams VIEWPOINT Presentation Vertex VIEWPOINT Fetus# Fetus1 VIEWPOINT Anatomical Region Laterality Modality Abdomen N/A Ultrasound 02/04/2018 2:17 PM CDT us Song Escobar MD IMG OB US PROCEDURES Final R esult * US Nuchal Translucency (12/31/2017 9:19 AM CDT) Placenta Details posterior, fundal VIEWPOINT Estimated Weight 153 g&grams VIEWPOINT Presentation Breech VIEWPOINT Fetus# Fetus1 VIEWPOINT Anatomical Region Laterality Modality Abdomen N/A Ultrasound 12/31/2017 9:58 AM CDT Klarissa Regan NP IMG OB US PROCEDURES Final Result documented in this encounter Visit Diagnoses Diagnosis Encounter for anatomic survey- Primary Encounter for supervision of normal , antepartum, unspecified documented in this encounter Care Teams Jewel Diameter Gauger Relationship Specialty Start Date End Date No, Physician PCP - General 12/03/17 01/03/23 documented as of this encounter
--- OUTSIDE RECORDS SUMMARY | 2024-07-28 06:41 | XMS_ITS | Encounter Summary ---
Author Organization [facility] Care Team Providers Care Organic Preparation Analyst Name Role Phone Unavailable Primary Care Provider Unavailabl e Encounter Details Date Type Department Care Team (Late st Contact Info) Description 09/24/2007 9:20 AM CDT - 09/24/2007 4:00 PM CDT Hospital Encounter [facility] Tone Ascencio MD [address] [phone] [place] [address] Gynecology Social History Tobacco Use Types Packs/Day Years Used Date Smoking Tobacco: Never Assessed Comments Unknown Sex and Gender Information Value Date Recorded Sex Assigned at Not on file Legal 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
--- OUTSIDE RECORDS SUMMARY | 2024-07-28 06:41 | XMS_ITS | Encounter Summary ---
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 - 09/12/2007 4:00 PM TEACHER OF THE HEARING IMPAIRED Hospital Encounter [facility] Tone Ascencio MD [address] [phone] [place] [address] Gynecology Social History Tobacco Use Types Packs/Day Years Used Date Smoking Tobacco: Never Assessed Comments Unknown Sex and Gender Information Value Date Recorded Sex Assigned at Not on file Legal 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
--- OUTSIDE RECORDS SUMMARY | 2024-07-28 06:41 | XMS_ITS | Encounter Summary ---
Author Organization [facility] Facility Care Team Providers Care Sorting Machine Operator Name Role Phone Unavailable Primary Care Provider Unavailabl e Encounter Details Date Type Department Care Team (Late st Contact Info) Description 03/18/2013 2:02 PM CDT - 03/18/2013 4:00 PM CDT Hospital Encounter 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
--- OUTSIDE RECORDS SUMMARY | 2024-07-28 06:41 | XMS_ITS | Encounter Summary ---
Author Organization [facility] Facility Care Team Providers Care Incinerator Plant General Supervisor Name Role Phone Unavailable Primary Care Provider Unavailabl e Encounter Details Date Type Department Care Team (Late st Contact Info) Description 03/27/2013 2:06 PM CDT - 03/27/2013 4:00 PM CDT Hospital Encounter [facility] Tone Ascencio MD [address] [phone] [place] [address] Gynecology Encounter for supervision of normal in multigravida Social History Tobacco Use Types Packs/Day Years Used Date Smoking Tobacco: Never Assessed Comments Unknown Sex and Gender Information Value Date Recorded Sex Assigned at Not on file 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 Gender Identity Not on file Sexual Orientation Not on file documented as of this encounter Plan of Treatment Not on file documented as of this encounter Procedures Procedure Name Priority Date/Time Associated Diagnosis Comments PLASMA GLUCOSE TOLERANCE, 50 G Routine 03/27/2013 3:45 PM CDT BLOOD CELL COUNT Routine 03/27/2013 3:45 PM CDT DISCHARGE LABORATORY CUMULATIVE REPORT Routine 03/27/2013 12:00 AM CDT documented in this encounter Results * (ABNORMAL) Blood cell count [CBC] express (03/27/2013 3:45 PM CDT) WBC 11.4(H) 3.8 - 9.8 K/cumm HISTORICAL RESULTS RBC 3.81(L) 3.90 - 5.00 M/cumm HISTORICAL RESULTS Hgb 12.1 12.1 - 15.1 g/dl HISTORICAL RESULTS Hct 37.1 36.1 - 44.3 % HISTORICAL RESULTS MCV 97.3 80.0 - 97.6 fl HISTORICAL RESULTS MCH 31.7 26.7 - 33.7 pg HISTORICAL RESULTS MCHC 32.6(L) 32.7 - 35.5 g/dl HISTORICAL RESULTS Rdw 12.6 11.8 - 14.6 % HISTORICAL RESULTS Platelets 114(L) 140 - 440 K/cumm HISTORICAL RESULTS MPV 10.4 6.8 - 10.4 fl HISTORICAL RESULTS Blood specimen (specimen) 03/27/2013 3:45 PM CDT Vanessa Hernández Justice LAB BLOOD ORDERABLES Final Resu lt Performing Organization Address [facility] de Phone Number HISTORICAL RESULTS * Plasma glucose tolerance, 50 g (03/27/2013 3:45 PM CDT) [facility] Glucose, gestational screen, pl 88 70 - 140 mg/dl HISTORICAL RESULTS Comment: Interpretive Data Used for suspected gestational diabetes. ??The screening test uses 50 grams of glucose with sample obtained 1 hr later. Normal range: < 140 mg/dL. ??A glucose value of >140 mg/dL generally indicates the need for a full diagnostic tolerance test. Reference Interval Info: ??Diabetes Care 2005, Vol 28. ??Supplement 1, S37-S42. Report of the Expert Committee on the Diagnosis and Classification of Diabetes Mellitus. ??Diabetes Care 2000; 23 Suppl 1:S4-19. Current interpretive data was last revised on 2007. Plasma 03/27/2013 3:45 PM CDT Vanessa Rendon LAB BLOOD ORDERABLES Final Resu lt HISTORICAL RESULTS * Discharge Laboratory Cumulative Report (03/27/2013 12:00 AM CDT) 03/27/2013 Narrative HISTORICAL RESULTS - 03/27/2013 7:24 PM CDT ?[facility] ?Department of Laboratories ? [address] [facility] ? [place] [address] Patient Name: ??NGUYEN CHATTERJEE [facility] Rec Number: [id number] Fin Number: ?[id number] Date: ?1990 Sex/Age: ? Female 22 years Admit Date: ?03/27/2013 Discharge Date: 03/27/2013 Doctor: ?Gynecology, Resident Facility: ?[facility] Location: ?CLOG Chart Printed: 03/27/2013 19:24 ?? * Abnormal ?? C Critical ?? f Footnote ?? ^ Corrected ?? L Low ?? H High ? i Interp Data ?? @ Reference Lab ? Chart Type:Periodic ? GLUCOSE TOLERANCE TESTING ? Glucose Challenge Testing (Gestational Diabetes) ?Test: Glucose, Screen, 50G i ? Reference: [70-140] ? Units: mg/dL 03/27/2013 ?? 15:45:27 ?? 88 03/27/2013 15:45:27 Glucose, Screen, 50G: Interpretive Data Used for suspected gestational diabetes. ??The screening test uses 50 grams of glucose with sample obtained 1 hr later. Normal range: < 140 mg/dL. ??A glucose value of >140 mg/dL generally indicates the need for a full diagnostic tolerance test. Reference Interval Info: ??Diabetes Care 2005, Vol 28. ??Supplement 1, S37- S42. Report of the Expert Committee on the Diagnosis and Classification of Diabetes Mellitus. ??Diabetes Care 2000; 23 Suppl 1:S4-19. Current interpretive data was last revised on 2007. ? COMPLETE BLOOD COUNT ?Test: WBC ?RBC ?Hgb ? Reference: [3.8-9.8] ??[3.90-5.00] ??[12.1-15.1] ? Units: K/cumm ? M/cumm ? g/dL 03/27/2013 ?? 15:45:27 ?? 11.4 ??H ?3.81 ??L ?12.1 ?Test: Hct ?Platelet Ct ??MCV ? Reference: [36.1-44.3] ??[140-440] ?[80.0-97.6] ? Units: % ?K/cumm ? fL 03/27/2013 ?? 15:45:27 ?? 37.1 ? 114 ??L ? 97.3 ? COMPLETE BLOOD COUNT ?Test: MCH ?MCHC ? RDW ? Reference: [26.7-33.7] ??[32.7-35.5] ??[11.8-14.6] ? Units: pg ? g/dL ? % 03/27/2013 ?? 15:45:27 ?? 31.7 ? 32.6 ??L ?12.6 ?Test: MPV ? Reference: [6.8-10.4] ? Units: fL 03/27/2013 ?? 15:45:27 ?? 10.4 us Historical Provider LAB BLOOD ORDERABLES Destinee mckeon Result HISTORICAL RESULTS documented in this encounter Visit Diagnoses Diagnosis Encounter for supervision of normal in multigravida documented in this encounter
--- OUTSIDE RECORDS SUMMARY | 2024-07-28 06:41 | XMS_ITS | Encounter Summary ---
Author Organization [facility] Healthcare Address [address] [place] [address] Care Team Providers Care Excelsior Machine Feeder Name Role Phone No, Physician Primary Care Provider [phone] Reason for Visit * Diagnostic Imaging (Routine) - Closed Specialty Diagnoses / Procedures Referred By Albaro barnes Referred To Contact Diagnoses Encounter for supervision of normal , antepartum, unspecified Procedures US Ob Limited Klarissa eRgan NP Phone: tel: fax: [facility] (All Locations) Referral ID Status Reason Start Date Expiration Date Visits Re quested Visits Authorized [id number] Closed 02/04/2018 08/16/2019 1 1 Encounter Details Date Type Department Care Team (Latest Contact Info) Description 02/28/2018 3:00 PM CDT Ancillary Procedure [facility] Outpatient Health - Ultrasound [address] [facility] Outpatient Health [place], [place] [id number] Klarissa Regan, EVELYN [address] [facility] [place] [address] Meka Delarosa MD [address] [facility] [phone] [place], [place] [id number] Encounter for supervision of normal , antepartum, unspecified Discharge Disposition: Discharge to home or self care Social History Tobacco Use Types Packs/Day Years Used Date Smoking Tobacco: Never Smokeless Tobacco: Never Comments Yes Sex and Gender Information Value Date Recorded Sex Assigned at Not on file 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 Gender Identity Not on file Sexual Orientation Not on file documented as of this encounter Discharge Disposition Disposition Code Departure Means Destination Discharge to home or self care documented in this encounter Plan of Treatment Not on file documented as of this encounter Procedures Procedure Name Priority Date/Time Associated Diagnosis Comments US OB LIMITED Schedule Routine, Read Routine (OP Routine) 02/28/2018 3:05 PM CDT Encounter for supervision of normal , antepartum, unspecified documented in this encounter Results * US Ob Limited (02/28/2018 3:05 PM CDT) Placenta Details posterior, Previa-no, no placental masses VIEWPOINT Presentation Breech VIEWPOINT Fetus# Fetus1 VIEWPOINT Anatomical Region Laterality Modality Abdomen N/A Ultrasound 02/28/2018 3:12 PM CDT us Klarissa Regan FIRE EQUIPMENT OPERATOR IMG OB US PROCEDURES Final Result documented in this encounter Visit Diagnoses Diagnosis Encounter for supervision of normal , antepartum, unspecified documented in this encounter Care Teams Excelsior Machine Feeder Relationship Specialty Start Date End Date No, Physician PCP - General 12/03/17 01/03/23 documented as of this encounter
--- OUTSIDE RECORDS SUMMARY | 2024-07-28 06:41 | XMS_ITS | Encounter Summary ---
Author Organization [facility] Facility Care Team Providers Care Equities Trader Name Role Phone Unavailable Primary Care Provider Unavailabl e Encounter Details Date Type Department Care Team (Late st Contact Info) Description 05/07/2013 2:21 PM CDT - 05/07/2013 4:00 PM CDT Hospital Encounter 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
--- OUTSIDE RECORDS SUMMARY | 2024-07-28 06:41 | XMS_ITS | Encounter Summary ---
Author Organization [facility] Facility Care Team Providers Care Supervisor Film Processing Name Role Phone Unavailable Primary Care Provider Unavailabl e Encounter Details Date Type Department Care Team (Latest Contact Info) Description 05/21/2008 3:47 PM KITCHEN HELPER - 05/21/2008 4:00 PM KITCHEN HELPER Hospital Encounter [facility] Khloe Mendoza MD [address] [facility] [address] [place] [address] Gynecology Encounter for surveillance of other contraceptive Social History Tobacco Use Types Packs/Day Years Used Date Smoking Tobacco: Never Assessed Comments Unknown Sex and Gender Information Value Date Recorded Sex Assigned at Not on file Legal Sex Female 1:19 AM KITCHEN HELPER Gender Identity Not on file Sexual Orientation Not on file documented as of this encounter Plan of Treatment Not on file documented as of this encounter Visit Diagnoses Diagnosis Encounter for surveillance of other contraceptive documented in this encounter
== END 2024-07-21 23:01 | disposition home or self-care (01) ==
PROVIDERS: Emergency Medicine; Emergency Provider Physician Assistant
DX: N39.0 Urinary tract infection, site not specified (principal); Z87.891 Personal history of nicotine dependence
CPT/HCPCS: 81001; 87086; 99283; A9270

== ENCOUNTER 2024-08-07 15:45 | Emergency (ER) | payer OTHER, SELFPAY ==
--- NOTE | ~2024-08-07 | CT_ITS ---
CLINICAL INDICATION: Abscess upper buttock COMPARISON: 06/13/2021. TECHNIQUE: Multiple contiguous axial images of the abdomen and pelvis were performed following the ad ministration of with 100 mL Omnipaque-350 intravenous contrast The dose-length product (DLP) was 1301.63 mGy-cm. Automated exposure control and iterative reconstruction technique were employed. FINDINGS/OBSERVATIONS: Visualized lower thorax: The bilateral lung bases are clear. The heart is of normal size, without pericardial effusion. Small hiatal hernia is present. Liver: The liver enhances homogeneously and is not enlarged measuring 17 cm in longitudinal dimension. Gallbladder and biliary system: The gallbladder is only minimally distended, and otherwise unremarkable. Pancreas: The pancreas enhances homogeneously without ductal dilatation. Spleen: The spleen enhances homogeneously and is not enlarged measuring 7 cm in longitudinal dimension. Kidneys: The bilateral kidneys enhance symmetrically without hydronephrosis or renal calculi. Adrenal glands: Unremarkable. Gastrointestinal tract: Trace fecal stasis within the rectosigmoid colon Appendix: The air-filled appendix is of normal caliber (axial series, images 82 through 99). Vasculature: Unremarkable. Lymph nodes: No pathologically enlarged or morphologically suspicious lymph nodes within the retroperitoneum or at the root of the mesentery. Pelvic structures: The bladder is minimally distended, and otherwise unremarkable. The uterus is anteverted and anteflexed, and otherwise unremarkable. Trace free fluid within the pelvis, likely physiologic. Body wall and musculoskeletal: A rim-enhancing fluid collection is present, originating within the soft tissues overlying the apex o f the coccyx and extending caudally along the midline. This collection is located within the anal tri gone, and appears to spare the anus. This collection measures 4.2 x 3.9 x 5.1 cm (anterior to posterior x medial to lateral x cranial to c audal dimension). Significant surrounding induration is present. No significant degenerative disease within the lower thoracic or lumbosacral spine. IMPRESSION: Abscess within the soft tissues overlying the apex of the coccyx and extending caudally along the mid line, as detailed above. Reviewed, dictated and finalized at location A. RINTENDENT GENERAL IMPRESSION: Abscess within the soft tissues overlying the apex of the coccyx and extending caudally along the midline, as detailed above.
[2024-08-07 15:57] VITALS: BP 161/90; PULSE 110; RESP 20; TEMP 36.9; O2SAT 99
--- NOTE | 2024-08-07 16:04 | ECG_ITS ---
Test Date: 2024-08-07 16:40:17 Measurements Intervals [place] Rate: 105 P: 74 MS: 139 QRS: 44 QRSD: 81 T: 58 QT: 318 QTc: 420 Interpretive Statements SINUS TACHYCARDIA POSSIBLE RIGHT ATRIAL ENLARGEMENT [0.25mV P WAVE] ABNORMAL RHYTHM ECG No previous ECG available for comparison Electronically Signed On 08-08-2024 11:52:12 ACTIVITIES CONCIERGE by Luann Singleton
--- NOTE | 2024-08-07 16:06 | ED_ITS ---
HPI - Skin/Abscess/Foreign Bdy General Chief complaint: Skin/Abscess/Foreign Body <Lluvia Lieberman, FLEXOGRAPHIC PRESS OPERATOR - Last Filed: 08/07/24 16:09> Stated complaint: boil on left buttocks <Lluvia Lieberman APRN - Last Filed: 08/07/24 16:09> Time Seen by Provider: 08/07/24 15:50 <Lluvia Lieberman APRN - Last Filed: 08/07/24 16:09> Focused HPI: Patient a 33-year-old female who presents to the ER with neck abscess on her buttocks. She reports she 1st noticed this abscess approximately 3 days ago. 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 She reports last time she had 1 she is given a prescription of doxycycline but did not complete the whole dose. Patient reports she had a fever yesterday but has been afebrile today. She denies any abdominal pain, shortness of breath, back pain, or chest pain. GENERAL: Well-appearing, well-nourished, and acute distress d/t pain. Pt tearful during examination. HEAD: Normocephalic, atraumatic. CHEST: Clear to auscultation. ?No respiratory distress. HEART: Tachycardia, regular rhythm.? NEURO: ?Alert and oriented x3. Patient screened in triage and initial orders placed.? ?Additional care and disposition to be based upon?diagnostic testing and treatment. <Lluvia Lieberman, FLEXOGRAPHIC PRESS OPERATOR - Last Filed: 08/07/24 16:09> Focused HPI: Patient a 33-year-old female who presents to the ER with neck abscess on her buttocks. She reports she 1st noticed this abscess approximately 3 days ago. 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 She reports last time she had 1 she is given a prescription of doxycycline but did not complete the whole dose. Patient reports she had a fever yesterday but has been afebrile today. She denies any abdominal pain, shortness of breath, back pain, or chest pain. GENERAL: Well-appearing, well-nourished, and acute distress d/t pain. Pt tearful during examination. HEAD: Normocephalic, atraumatic. CHEST: Clear to auscultation. ?No respiratory distress. HEART: Tachycardia, regular rhythm.? NEURO: ?Alert and oriented x3. Patient screened in triage and initial orders placed.? ?Additional care and disposition to be based upon?diagnostic testing and treatment. <Medina Alarcon PA-C - Last Filed: 08/08/24 02:26> Source: patient <Medina Alarcon PA-C - Last Filed: 08/08/24 02:26> Mode of arrival: ambulatory <Medina Alarcon PA-C - Last Filed: 08/08/24 02:26> Limitations: no limitations <Medina Alarcon PA-C - Last Filed: 08/08/24 02:26> History of Present Illness HPI narrative: Agree with above HPI. States she is supposed to be on doxycycline twice daily as maintenance therapy for her HS, prescribed by her pricing consultant. She stop taking this over the last 1 month as it caused vaginal irritation. Patient states she has had similar episodes in the past which required I&D X2. <Medina Alarcon PA-C - Last Filed: 08/08/24 02:26> Related Data Allergies/Adverse reactions: Allergies Allergy/AdvReac Type Severity Reaction Status Date / Time Sulfa (Sulfonamide Allergy Intermediate Itching Verified 08/07/24 15:46 Antibiotics) <Lluvia Lieberman APRN - Last Filed: 08/07/24 16:09> Review of Systems 2 Review of Systems: All systems reviewed & are unremarkable except as noted in HPI. <Medina Alarcon PA-C - Last Filed: 08/08/24 02:26> All systems reviewed & are unremarkable except as noted in HPI and below < Medina Alarcon PA-C - Last Filed: 08/08/24 02:26> [facility] Past Medical History Medical History: Medical History Dentalgia UTI (urinary tract infection) Pilonidal abscess Abscess of labia <Lluvia Lieberman APRN - Last Filed: 08/07/24 16:09> Surgical History Surgical History: Surgical History History of incision and drainage Complex i&d left perirectal abscess 06/13/21 <Lluvia Lieberman APRN - Last Filed: 08/07/24 16:09> Family History Family History: Family History Other Diabetes mellitus Hypertension <Lluvia Lieberman APRN - Last Filed: 08/07/24 16:09> Social History Social History: Social History Smoking status: Former smoker Tobacco type: cigarettes Alcohol intake: current Substance use: current Substance use type: marijuana Living arrangements: with family Gender identity (if verbalized by the patient): Female Spiritual care concerns: No <Lluvia Lieberman APRN - Last Filed: 08/07/24 16:09> Exam 2 Narrative: GENERAL: Uncomfortable appearing, obese with BMI of 33.8, non-toxic, in mild acute distress d/t pain. HEAD: Normocephalic, atraumatic. RESPIRATORY: Airway patent, respirations nonlabored. Clear to auscultation bilaterally, no rales, rhonchi, wheezing. CARDIOVASCULAR: Borderline tachycardic with regular rhythm without murmurs, rubs, or gallops. RECTAL: Some chronic scarring in perineal area related to previous HS. Large area of swelling/fluctuance along midline gluteal cleft extending into right medial buttock, severe focal TTP. This is present a few centimeters above anus. Does not appear to involve anus. No active drainage. Large area of surrounding induration and tenderness. MUSCULOSKELETAL: Moves all extremities. No gross deformities. SKIN: Warm, dry, normal color. NEURO: A&O X3. Speech clear. Cranial nerves II-XII grossly intact. No ataxic movements. PSYCHIATRIC: Appropriate mood and affect. Normal interaction. <Medina Alarcon PA-C - Last Filed: 08/08/24 02:26> Course Vital Signs Vital signs: Vital Signs Temperature 98.5 F 08/07/24 15:57 Pulse Rate 110 H 08/07/24 15:57 Respiratory Rate 20 08/07/24 15:57 Blood Pressure 161/90 H 08/07/24 15:57 Pulse Oximetry 99 08/07/24 15:57 Oxygen Delivery Room Air 08/07/24 15:57 Temperature 98.5 F 08/07/24 15:57 Pulse Rate 73 08/08/24 00:22 Respiratory Rate 17 08/08/24 00:22 Blood Pressure 130/84 08/08/24 00:22 Pulse Oximetry 99 08/08/24 00:22 Oxygen Delivery Room Air 08/07/24 15:57 <Lluvia Lieberman, FLEXOGRAPHIC PRESS OPERATOR - Last Filed: 08/07/24 16:09> Vital Signs Temperature 98.5 F 08/07/24 15:57 Pulse Rate 110 H 08/07/24 15:57 Respiratory Rate 20 08/07/24 15:57 Blood Pressure 161/90 H 08/07/24 15:57 Pulse Oximetry 99 08/07/24 15:57 Oxygen Delivery Room Air 08/07/24 15:57 Temperature 98.5 F 08/07/24 15:57 Pulse Rate 73 08/08/24 00:22 Respiratory Rate 17 08/08/24 00:22 Blood Pressure 130/84 08/08/24 00:22 Pulse Oximetry 99 08/08/24 00:22 Oxygen Delivery Room Air 08/07/24 15:57 <Medina Alarcon PA-C - Last Filed: 08/08/24 02:26> MDM - Skin/Abscess/Foreign Bdy MDM Narrative Medical decision making narrative: Patient presented to ED with concern for abscess to buttocks. Has had similar episode in the past. Initially tachycardic upon arrival. She is mildly uncomfortable appearing upon my evaluation. Will give pain medicine. CBC with white blood cell count of 11.3. Inflammatory markers are minimally elevated. Lactic acid is within normal range. UA does additionally appear infectious. Will treat. CT scan of abdomen/pelvis obtained and showing abscess within the soft tissues of the coccyx extending caudally along the midline. Measuring approx 4 x 4 x 5 cm. Consistent with clinical exam. Discussed lab and imaging findings, recommendation for I & D and antibiotics. Patient states she does not want the abscess incised. She states she has had this done twice before and it was so extremely painful. She would like the antibiotics, but is adamant that she will not undergo incision and drainage. I discussed that this may not resolve fully with antibiotics alone and that this could potentially get worse. Patient voiced understanding of the risks and again would like to decline I&D. She has previously seen our General surgery team here. I recommended that patient have close follow-up with them for further management. 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 Recommended patient use warm compresses, Sitz baths, anti-inflammatories at home. Discussed very strict return precautions. Patient voiced understanding. Again voiced understanding of risks of foregoing I&D. Discharged in stable condition. Patient has previously been on doxycycline for her HS. She has an allergy to sulfa. Will start clindamycin for abscess. Will also treat for urinary tract infection with Macrobid. <Medina Alarcon PA-C - Last Filed: 08/08/24 02:26> Medical Records Attestation: I reviewed the patient's medical records. <Medina Alarcon PA-C - Last Filed: 08/08/24 02:26> Lab Data Attestation: I reviewed the patient's lab results. <Medina Alarcon PA-C - Last Filed: 08/08/24 02:26> Result diagrams: 08/07/24 16:37 08/07/24 16:37 <Lluvia Lieberman APRN - Last Filed: 08/07/24 16:09> Labs: Lab Results 08/07/24 08/07/24 08/07/24 Range/Units 16:37 20:27 20:30 WBC 11.3 H (4.5-10.0) K/mm3 RBC 5.06 (4.2-5.4) M/mm3 Hgb 14.1 (12.0-15.0) g/dL Hct 42.6 (37.0-47.0) % MCV 84.2 (80-100) fl MCH 27.9 (26-34) pg MCHC 33.1 (32-36) g/dl RDW 13.1 (11.5-14.5) % Plt Count 185 (150-375) k/mm3 MPV 10.4 (7.4-10.4) fl Immature Gran % (Auto) 0.4 (0-0.5) % Neut % (Auto) 60.3 (45.5-73.1) % Lymph % (Auto) 30.7 (18.3-44.2) % Mills % (Auto) 6.4 (2.6-8.5) % Eos % (Auto) 1.9 (0-4.4) % Baso % (Auto) 0.3 (0.2-1.2) % Lymph # (Auto) 3.47 H (0.9-3.2) K/mm3 Mills # (Auto) 0.7 H (0.1-0.6) K/mm3 Eos # (Auto) 0.2 (0-0.3) K/mm3 Baso # (Auto) 0.0 (0.0-0.1) K/mm3 Abs Immat Gran (auto) 0.04 H (0.00-0.031) K/mm3 Absolute Neuts (auto) 6.8 H (1.3-6.7) K/mm3 Absolute Nucleated RBC 0.000 (0.0-0.012) K/mm3 Nucleated RBC % 0.0 (0.0-0.2) % PT 13.8 (11.1-14.7) Seconds INR 1.0 APTT 24.7 (22.3-36.8) Seconds Sodium 138 (137-145) mmol/L Potassium 3.7 (3.4-5.0) mmol/L Chloride 104 (98-107) mmol/L Carbon Dioxide 25 (22-30) mmol/L Anion Gap 9 (4-12) mmol/L BUN 14 D (7-17) mg/dL Creatinine 0.68 L (0.7-1.0) mg/dL Estim Creat Clear Calc 111 ml/min Estimated GFR > 60 (59 - ) Glucose 89 (65-110) mg/dL Lactic Acid 0.9 (0.7-2.0) mmol/L Calcium 8.7 (8.4-10.2) mg/dL Total Bilirubin 0.6 (0.2-1.3) mg/dL AST 28 (14-36) U/L ALT 33 (6-35) U/L Alkaline Phosphatase 94 (38-126) U/L Troponin I < 0.012 (0.000-0.034) ng/mL C-Reactive Protein 1.8 H (<1.0) mg/dL Total Protein 8.0 (6.3-8.2) g/dL Albumin 4.0 (3.5-5.1) g/dL Urine Color Yellow (Yellow) Urine Appearance Cloudy H (Clear) Urine pH 6.0 (5.0-9.0) Ur Specific [place] 1.029 (1.001-1.035) Urine Protein 2+ H (Negative) mg/dL Urine Glucose (UA) Negative (Negative) mg/dL Urine Ketones Trace H (Negative) mg/dL Ur Blood (Man) 3+ H (Negative) Urine Nitrate Negative (Negative) Urine Bilirubin Negative (Negative) Urine Urobilinogen 1.0 (<2.0) mg/dL Leukocyte Esterase Rfl 2+ H (Negative) ROS/UL Urine RBC >100 H (0-2) /hpf Urine WBC 51-100 H (0-3) /hpf Ur Squamous Epith Cells Many H (Few) /hpf Urine Bacteria 4+ H /hpf Urine Casts 0-2 POC Urine HCG, Qual Negative (Negative) <Lluvia Lieberman, FLEXOGRAPHIC PRESS OPERATOR - Last Filed: 08/07/24 16:09> Lab Results 08/07/24 08/07/24 08/07/24 Range/Units 16:37 20:27 20:30 WBC 11.3 H (4.5-10.0) K/mm3 RBC 5.06 (4.2-5.4) M/mm3 Hgb 14.1 (12.0-15.0) g/dL Hct 42.6 (37.0-47.0) % MCV 84.2 (80-100) fl MCH 27.9 (26-34) pg MCHC 33.1 (32-36) g/dl RDW 13.1 (11.5-14.5) % Plt Count 185 (150-375) k/mm3 MPV 10.4 (7.4-10.4) fl Immature Gran % (Auto) 0.4 (0-0.5) % Neut % (Auto) 60.3 (45.5-73.1) % Lymph % (Auto) 30.7 (18.3-44.2) % Mills % (Auto) 6.4 (2.6-8.5) % Eos % (Auto) 1.9 (0-4.4) % Baso % (Auto) 0.3 (0.2-1.2) % Lymph # (Auto) 3.47 H (0.9-3.2) K/mm3 Mills # (Auto) 0.7 H (0.1-0.6) K/mm3 Eos # (Auto) 0.2 (0-0.3) K/mm3 Baso # (Auto) 0.0 (0.0-0.1) K/mm3 Abs Immat Gran (auto) 0.04 H (0.00-0.031) K/mm3 Absolute Neuts (auto) 6.8 H (1.3-6.7) K/mm3 Absolute Nucleated RBC 0.000 (0.0-0.012) K/mm3 Nucleated RBC % 0.0 (0.0-0.2) % PT 13.8 (11.1-14.7) Seconds INR 1.0 APTT 24.7 (22.3-36.8) Seconds Sodium 138 (137-145) mmol/L Potassium 3.7 (3.4-5.0) mmol/L Chloride 104 (98-107) mmol/L Carbon Dioxide 25 (22-30) mmol/L Anion Gap 9 (4-12) mmol/L BUN 14 D (7-17) mg/dL Creatinine 0.68 L (0.7-1.0) mg/dL Estim Creat Clear Calc 111 ml/min Estimated GFR > 60 (59 - ) Glucose 89 (65-110) mg/dL Lactic Acid 0.9 (0.7-2.0) mmol/L Calcium 8.7 (8.4-10.2) mg/dL Total Bilirubin 0.6 (0.2-1.3) mg/dL AST 28 (14-36) U/L ALT 33 (6-35) U/L Alkaline Phosphatase 94 (38-126) U/L Troponin I < 0.012 (0.000-0.034) ng/mL C-Reactive Protein 1.8 H (<1.0) mg/dL Total Protein 8.0 (6.3-8.2) g/dL Albumin 4.0 (3.5-5.1) g/dL Urine Color Yellow (Yellow) Urine Appearance Cloudy H (Clear) Urine pH 6.0 (5.0-9.0) Ur Specific [place] 1.029 (1.001-1.035) Urine Protein 2+ H (Negative) mg/dL Urine Glucose (UA) Negative (Negative) mg/dL Urine Ketones Trace H (Negative) mg/dL Ur Blood (Man) 3+ H (Negative) Urine Nitrate Negative (Negative) Urine Bilirubin Negative (Negative) Urine Urobilinogen 1.0 (<2.0) mg/dL Leukocyte Esterase Rfl 2+ H (Negative) ROS/UL Urine RBC >100 H (0-2) /hpf Urine WBC 51-100 H (0-3) /hpf Ur Squamous Epith Cells Many H (Few) /hpf Urine Bacteria 4+ H /hpf Urine Casts 0-2 POC Urine HCG, Qual Negative (Negative) <ADARSH Bella Last Filed: 08/08/24 02:26> Imaging Data Attestation: I personally reviewed and interpreted this imaging study as follows: < ADARSH Bella Last Filed: 08/08/24 02:26> Radiologist's impression: ITS Impressions Abdomen/Pelvis CT 08/07/24 22:14 IMPRESSION: Abscess within the soft tissues overlying the apex of the coccyx and extending caudally along the midline, as detailed above. <ADARSH Bella Last Filed: 08/08/24 02:26> Discharge Plan Discharge Clinical Impression: Pilonidal abscess UTI (urinary tract infection) Qualifiers: Urinary tract infection type: site unspecified Hematuria presence: with hematuria Qualified Code(s): N39.0 - Urinary tract infection, site not specified ; R31.9 - Hematuria, unspecified <Lluvia Lieberman APRN - Last Filed: 08/07/24 16:09> Patient Disposition: Home, Self-Care <NIMA Granger Last Filed: 08/07/24 16:09> Condition: Stable <Lluvia Lieberman APRN - Last Filed: 08/07/24 16:09> Instructions: Antibiotic Form, Urinary Tract Infection in Women (ED), Pilonidal Cyst (ED) <Lluvia Lieberman APRN - Last Filed: 08/07/24 16:09> Additional Instructions: Take antibiotics as prescribed for suspected pilonidal abscess. These antibiotics can be rough on the stomach. It is recommended you take an [id number] probiotic while taking the antibiotics and for 1-2 weeks afterwards. Recommend Sitz baths, frequent warm compresses to buttock area to reduce inflammation. Continue Tylenol and ibuprofen as needed for pain. I have prescribed a few pain pills for more severe pain. Recommend close follow-up with general surgery team for further evaluation and more definitive management of abscess. You declined to have the abscess opened in the ED today. Return to the ED if you experience worsening or severe symptoms, unable to keep down food or drink, persistent fevers, rectal bleeding, or any other symptoms of concern. Your urine sample today also showed signs of infection. Take Macrobid as prescribed. Follow-up with primary care doctor for urine culture results. <Lluvia Lieberman APRN - Last Filed: 08/07/24 16:09> Patient Language: Portuguese <Lluvia Lieberman APRN - Last Filed: 08/07/24 16:09> Prescriptions: New nitrofurantoin monohyd/m-cryst 100 mg capsule 100 mg PO Q12H 5 Days Qty: 10 0RF Rx Instructions: must administer with a meal/food clindamycin HCl 150 mg capsule 450 mg PO Q8H 7 Days Qty: 63 0RF hydrocodone-acetaminophen 5-325 mg tablet 1 tablet PO Q6H PRN (Reason: pain) Qty: 5 0RF fluconazole 150 mg tablet 150 mg PO ONCE PRN (Reason: vaginal irritation) Qty: 1 0RF Rx Instructions: as a single dose No Action cephalexin 500 mg capsule 500 mg PO Q8H 7 Days Qty: 21 0RF <Lluvia Lieberman APRN - Last Filed: 08/07/24 16:09> Follow-up/Referrals: Kat Owens MD [Physician] - (GENERAL SURGERY) PHYSICIAN NOT ON STAFF,NONSTAFF [Primary Care Provider] - <Lluvia Lieberman APRN - Last Filed: 08/07/24 16:09> Stand Alone Forms: Work/School Release IP <Lluvia Lieberman APRN - Last Filed: 08/07/24 16:09> Time of Disposition: 23:45 <Lluvia Lieberman APRN - Last Filed: 08/07/24 16:09> 23:45 <Medina Alarcon PA-C - Last Filed: 08/08/24 02:26>
[2024-08-07] MEDS: HYDROcodone/acetaminophen (*CRX) 7.5-325 MG TABLET 1 TAB PO (16:21)
[2024-08-07 16:48] LABS: Basophils Percent Auto 0.3 % (0.2-1.2); Eosinophils Absolute Auto 0.2 K/mm3 (0-0.3); Eosinophils Percent Auto 1.9 % (0-4.4); Hematocrit 42.6 % (37.0-47.0); Hemoglobin 14.1 g/dL (12.0-15.0); Immature Granulocyte Absolute 0.04 K/mm3 (0.00-0.031); Immature Granulocyte Percent A 0.4 % (0-0.5); Lymphocytes Absolute Auto 3.47 K/mm3 (0.9-3.2); Lymphocytes Percent Auto 30.7 % (18.3-44.2); Mean Corpuscular HGB Conc 33.1 g/dl (32-36); Mean Corpuscular Hemoglobin 27.9 pg (26-34); Mean Corpuscular Volume 84.2 fl (80-100); Mean Platelet Volume 10.4 fl (7.4-10.4); Monocytes Absolute Auto 0.7 K/mm3 (0.1-0.6); Monocytes Percent Auto 6.4 % (2.6-8.5); Neutrophils Absolute Auto 6.8 K/mm3 (1.3-6.7); Neutrophils Percent Auto 60.3 % (45.5-73.1); Platelet Count Result 185 k/mm3 (150-375); Red Blood Count 5.06 M/mm3 (4.2-5.4); Red Cell Distribution Width 13.1 % (11.5-14.5); White Blood Count 11.3 K/mm3 (4.5-10.0)
[2024-08-07 17:00] LABS: Lactic Acid Reflex 0.9 mmol/L (0.7-2.0); Prothrombin Time 13.8 Seconds (11.1-14.7)
[2024-08-07 17:01] LABS: Partial Thromboplastin Time 24.7 Seconds (22.3-36.8)
[2024-08-07 17:04] LABS: Alanine Aminotransferase 33 U/L (6-35); Alkaline Phosphatase 94 U/L (38-126); Anion Gap 9 mmol/L (4-12); Aspartate Amino Transferase 28 U/L (14-36); Bilirubin,Total 0.6 mg/dL (0.2-1.3); Blood Urea Nitrogen 14 mg/dL (7-17); Calcium 8.7 mg/dL (8.4-10.2); Carbon Dioxide 25 mmol/L (22-30); Chloride 104 mmol/L (98-107); Estimated CRCL calculation 111 ml/min; Estimated Glomerular Filt Rate > 60; Glucose 89 mg/dL (65-110); Potassium 3.7 mmol/L (3.4-5.0); Sodium 138 mmol/L (137-145)
[2024-08-07 17:10] LABS: Troponin I < 0.012 ng/mL (0.000-0.034)
[2024-08-07 18:11] LABS: CRP 1.8 mg/dL (<1.0)
[2024-08-07] MEDS: SODIUM CHLORIDE 0.9% IV 1,000 ML 999 ML IV CONT (20:29)
[2024-08-07 20:32] LABS: BEDSIDEPREGUCG Negative (Negative)
[2024-08-07 20:41] LABS: Add Urine Microscopic? YES; Appearance Urine Cloudy (Clear); Bacteria Urine 4+ /hpf; Bilirubin Urine Negative (Negative); Blood Urine 3+ (Negative); Color Urine Yellow (Yellow); Glucose Urine UA Negative (Negative); Ketones Urine Trace mg/dL (Negative); Leukocyte Esterase Ur 2+ LEU/UL (Negative); Nitrate Urine Negative (Negative); Non Pathogenic Casts 0-2; Protein Urine 2+ mg/dL (Negative); RBC Urine >100 /hpf (0-2); Specific Grav Ur 1.029 (1.001-1.035); Squamous Epithelial Cell Urine Many /hpf (Few); WBC Urine 51-100 /hpf (0-3)
[2024-08-07] MEDS: ONDANSETRON INJ 4 MG/2 ML VIAL IV PUSH (22:14)
[2024-08-07] MEDS: MORPHINE SULFATE (*CRX) 4 MG/ML INJ IV PUSH (22:16)
[2024-08-07] MEDS: KETOROLAC 30 MG/ML VIAL (*BKC) IV PUSH (22:19)
[2024-08-07 23:24] VITALS: BP 137/87; PULSE 77; RESP 14; O2SAT 98
[2024-08-07] MEDS: FLUCONAZOLE 150 MG TABLET PO (23:30)
[2024-08-07] MEDS: CLINDAMYCIN HCL 150 MG CAP 450 MG PO (23:30)
[2024-08-08 00:22] VITALS: BP 130/84; PULSE 73; RESP 17; O2SAT 99
--- OUTSIDE RECORDS SUMMARY | 2024-08-08 06:00 | XMS_ITS | Data Portability ---
Author Organization [facility] Address [address] [place] [address] Care Team Providers Care Rock Climbing Instructor Name Role Phone ELYARA BROOKS Primary Care Provider Assessment No assessment recorded. Plan of Treatment Reminders Order Date Submit Date Provider Last Modified By Organization Details Last Modified Time Details Appointments None recorded. Lab vaginal pathogens panel, SHADY+probe , vaginal fluid 2023 024 brea [facility], [address] [place] [address], [address], [place], [address], 4 15:25:48 culture, urine 2023 024 CORN[place] [facility], [address] [place] [address], [address], [place], [address], 4 03:37:16 PPD (purified protein derivativ e), skin test 2023 024 CORN[facility] In-Office Order, Internal Use Only DO Not Attach Compendium DO Not Attach Compendium, Do Not Delete/merge, [id number] 18:05:23 pap, IG + reflex HPV 2024 025 CORNEL [facility], [address] [place] [address], [address], [place], [address], 5 11:34:54 urinalysi s, dipstick 2024 025 [place]N[facility] In-Office Order, Internal Use Only DO Not Attach Compendium DO Not Attach Compendium, Do Not Delete/merge, [id number] 5 14:46:41 test, urine 2024 025 [place] In-Office Order, Internal Use Only DO Not Attach Compendium DO Not Attach Compendium, Do Not Delete/merge, [id number] 5 14:46:52 vaginal pathogens panel, SHADY+probe , vaginal fluid 2024 025 [place] [facility], [address] [facility], [address], [place], [address], 07:07:49 Referral dermatolo gist referral - anogenita l hidradeni tis 2023 024 [email or web address] Sania Newberry MD (Dermatology) , [address] [facility] [address], [facility], [place], [address], 10:43:39 Procedures None recorded. Surgeries None recorded. Imaging None recorded. Medication Orders doxycycli ne monohydra te 100 mg tablet 2023 024 [place] [id number], [address] [place], [address], 12:10:26 Tubersol 5 tub. unit/0.1 mL intraderm al injection solution 2023 024 [email or web address] Not available 17:35:07 Patient TargetsNo targets recorded. Patient Instructions Encounter Date Encounter Id Patient Instructions Last Modified By Organization Details Last Modified Time 04/28/2024 [id number] A healthy lifestyle: care instructions Not available 04/28/2024 17:20:37 tuberculin skin test: care instructions Not available 04/28/2024 17:20:37 07/17/2024 [id number] A healthy lifestyle: care instructions [email or web address] Not available 07/17/2024 14:43:54 Reason for Referral Nuclear Worker Technician Referral for A nogenital hidradenitis suppurativa anogenital hidradenitis Referring Physician: Yara Rodriguez, Staff Submarine Warfare Officer, Encounter Date: 08/06/2023 Results Created Date Observation Date Name Description Value Unit Range Abnormal Flag Note LastModifiedBy Organization Detail LastModifiedTime 08/23/19 24 08/25/2023 URINE CULTU RE, ROUTI NE urine culture, routine Final report Not Available [facility] ([facility]) [address] [facility] [address], [place], [address], 08/25/2023 03:37:16 08/23/19 24 08/25/2023 URINE CULTU RE, ROUTI NE result 1 No growth Not Available [facility] ([facility]) [address] [facility] [address], [place], [address], 08/25/2023 03:37:16 04/30/20 24 04/30/2024 PPD (jace fied prote in deriv ative ), skin test Result Negati ve Not Available In-Office Order Internal Use Only DO Not Attach Compendium DO Not Attach Compendium, Do Not Delete/merge, [id number] 04/28/2024 17:19:55 07/17/1907/20/2024 NUSWA B VAGIN ITIS PLUS (VG+) atopobium vaginae HIGH - 2 score abnormal Not Available [facility] ([facility]) [address] [facility] [address], [place], [address], 07/21/2024 07:07:49 07/17/19 25 07/20/2024 NUSWA B VAGIN ITIS PLUS (VG+) bvab 2 HIGH - 2 score abnormal Not Available [facility] ([facility]) [address] [place], [address], 07/21/2024 07:07:49 07/17/19 25 07/20/2024 NUSWA B [...] prese nce of BV. Not Available [facility] ([facility]) [address] [facility] [address], [place], [address], 07/21/2024 07:07:49 07/17/19 25 07/20/2024 NUSWA B VAGIN ITIS PLUS (VG+) rabia albicans, SHADY NEGATI VE negati ve Not Available [facility] ([facility]) [address] [facility], [place], [address], 07/21/2024 07:07:49 07/17/19 25 07/20/2024 NUSWA B VAGIN ITIS PLUS (VG+) rabia glabrata, SHADY NEGATI VE negati ve Not Available [facility] ([facility]) [address] [facility] [facility], [place], [address], 07/21/2024 07:07:49 07/17/19 25 07/21/2024 NUSWA B VAGIN ITIS PLUS (VG+) trich vag by SHADY POSITI VE negati ve abnormal Not Available [facility] ([facility]) [address] [place], [address], 07/21/2024 07:07:49 07/17/19 25 07/21/2024 NUSWA B VAGIN ITIS PLUS (VG+) chlamydia trachomatis, SHADY NEGATI VE negati ve Not Available [facility] ([facility]) [address] [place], [address], 07/21/2024 07:07:49 07/17/19 25 07/21/2024 NUSWA B VAGIN ITIS PLUS (VG+) neisseria gonorrhoeae, SHADY NEGATI VE negati ve Not Available [facility] ([facility]) [address] [facility] [address], [place], [address], 07/21/2024 07:07:49 07/17/19 25 07/18/2024 IGP,A PTIMA HPV,A GE GDLN age gdln acog testing 30-65 Not Available [facility] ([facility]) [address] [facility] [address], [place], [address], 07/22/2024 11:34:54 07/17/19 25 07/22/2024 IGP, APTIM A HPV, RFX 16/18 ,45 diagnosis: Chase FOSTER IVE FOR INTRA EPITH ELIAL LESIO N OR NOVA JAIME . TRICH OMONA S VAGIN APURVA IS PRESE NT. CELLU CHELSY THOMPSON ES ASSOC IATED WITH INFLA MMATI ON ARE PRESE NT. Not Available [facility] ([facility]) [address] [facility] [address], [place], [address], 07/22/2024 11:34:55 07/17/19 25 07/22/2024 IGP, APTIM A HPV, RFX 16/18 ,45 specimen adequacy: Chase barnes Satis facto ry for evalu ation . Endoc ervic al and/o r squam ous metap lasti c cells (endo cervi john compo nent) are prese nt. Not Available [facility] ([facility]) [address] [facility] [address], [place], [address], 07/22/2024 11:34:55 07/17/19 25 07/22/2024 IGP, APTIM A HPV, RFX 16/18 ,45 clinician provided ICD10: Chase barnes Z01.4 19 Not Available [facility] ([facility]) [address] [facility] [address], [place], [address], 07/22/2024 11:34:55 07/17/19 25 07/22/2024 IGP, APTIM A HPV, RFX 16/18 ,45 performed by: Chase Thrasher er, Cytot echno logis t (ASCP ) Not Available [facility] ([facility]) [address] [facility] [address], [place], [address], 07/22/2024 11:34:55 07/17/19 25 07/22/2024 IGP, APTIM A HPV, RFX 16/18 ,45 . . Not Available [facility] ([facility]) [address] [facility] [address], [place], [address], 07/22/2024 11:34:55 07/17/19 25 07/22/2024 IGP, APTIM [...] ts do occur . Not Available [facility] ([facility]) [address] [facility] [address], [place], [address], 07/22/2024 11:34:55 07/17/19 25 07/22/2024 IGP, APTIM A HPV, RFX 16/18 ,45 test methodology: - The Thin Prep( R) Image r was unabl e to read this speci men. There fore a manua l revie w was perfo rmed. Not Available [facility] ([facility]) [address] [facility] [address], [place], [address], 07/22/2024 11:34:55 07/17/19 25 07/22/2024 IGP, APTIM A HPV, RFX 16/18 ,45 HPV aptima Negati ve negati ve This nucle ic acid ampli ficat ion test detec ts fourt een high- risk HPV types (16,1 8,31, 33,35 ,39,4 5,51, 52,56 ,58,5 9,66, 68) witho ut diffe renti ation . Not Available [facility] ([facility]) [address], [place], [address], 07/22/2024 11:34:55 07/17/1907/22/2024 IGP, APTIM A HPV, RFX 16/18 ,45 HPV genotype reflex Commen t Crite abiel not met, HPV Genot ype not perfo rmed. Not Available [facility] ([facility]) [address] [facility] [address], [place], [address], 07/22/2024 11:34:55 07/17/1907/17/2024 urina lysis , dipst [...] 07/17/2024 urina lysis , dipst ick Specific [place] 1.020 Not Available In-Off ice Order Internal [...] Not Delete/merge, 07/17/2024 14:35:40 07/18/19 25 07/18/2024 CAROLYNE Arvizu NOTE please note Commen t The date and/o r time of colle ction was not indic ated on the requi sitio n as requi red by state and matthew al law. The date of recei pt of the speci men was used as the colle ction date if not suppl ied. Not Available [facility] ([facility]) [address] [facility] [address], [place], [address], 07/20/2024 02:06:17 07/18/1907/20/2024 URINE CULTU RE, ROUTI NE urine culture, routine FINAL REPORT Not Available [facility] ([facility]) [address] [facility] [address], [place], [address], 07/20/2024 02:06:19 07/18/1907/20/2024 URINE CULTU RE, JARED NE result 1 NO GROWTH Not Available [facility] ([facility]) [address] [facility] [address], [place], [address], 07/20/2024 02:06:19 Result Notes None recorded. Problems Name Problem SNOMED Code Status Onset Date Resolution Date Notes Provider Name and Address Organization Details Recorded Time Anogenital hidradenitis suppurativa 049455540 Active 2023 MATTY ASENCIO Attn: Crystalin g,[address] [facility], [place], [address], [facility] 12:10:00 Problem Notes None recorded. Procedures Surgical History Date Name Laterality Status Provider Name and Address Organization Details Recorded Time 07/16/2018 Date of Last Pap Smear completed Emilie Pollack [place] - [facility] 10/06/2021 12:29:10 Imaging Results None recorded. Procedure Notes None recorded. Medical Equipment None Reported. Allergies Allergen ID Allergen Name Allergen Category Reaction Reaction Severity Criticality Documentation Date Start Date Code Code System Note Provider Name and Address Organization Details Recorded Time [id number] Substance with sulfonami de structure and antibacte rial mechanism of action (substanc e) medicatio n Not available Not available Not available 02/16/2022 [id number] SNOMED Not Available Not Available Not Available Medications Name Sig Start Date Stop Date [...] Not Available Vitals Date Recorded Body height Provider Name an d Address Organization Details Last Updated DateTime 04/28/2024 165.1 cm Kimberley infante [place] - [facility] 04/28/2024 17:01:26 Date Recorded Body mass index (BMI) Body weight Provider Name and Address Organization Details Last Updated DateTime 04/28/2024 33.6 kg/m2 56248.66 g JOHANNA Jain - [facility] 04/28/2024 17:01:30 Date Recorded Oxygen saturation Oxygen saturation in Arterial blood by Pulse oximetry Provider Name and Address Organization Details Last Updated DateTime 04/28/2024 99 % 99 % Kimberley Rivera MA [facility] 04/28/2024 17:01:35 Date Recorded Heart rate Provider Name an d Address Organization Details Last Updated DateTime 04/28/2024 76 /min Kimberley Rajan nareshJOHANNA [facility] 04/28/2024 17:01:40 Date Recorded Respiratory rate Provider Name a nd Address Organization Details Last Updated DateTime 04/28/2024 16 /min Kimberley Rajan nareshJOHANNA [facility] 04/28/2024 17:01:44 Date Recorded Body temperature Provider Name a nd Address Organization Details Last Updated DateTime 04/28/2024 97.7 [degF] Kimberley infante MA [facility] 04/28/2024 17:01:49 Date Recorded Body height Provider Name an d Address Organization Details Last Updated DateTime 07/17/2024 165.1 cm Tiff Moody MA [facility] 14:04:38 Date Recorded Body mass index (BMI) Body weight Provider Name and Address Organization Details Last Updated DateTime 07/17/2024 34.4 kg/m2 56280.62 g Tiff Moody MA [facility] 0 07/17/2024 14:04:42 Date Recorded Heart rate Provider Name an d Address Organization Details Last Updated DateTime 07/17/2024 89 /min Tiff Moody MA [facility] 14:04:53 Date Recorded Respiratory rate Provider Name a nd Address Organization Details Last Updated DateTime 07/17/2024 16 /min Tiff Moody MA [facility] 14:04:55 Date Recorded Oxygen saturation Oxygen saturation in Arterial blood by Pulse oximetry Provider Name and Address Organization Details Last Updated DateTime 07/17/2024 97 % 97 % Tiff Moody MA [facility] 07/17/2024 14:04:59 Date Recorded Systolic blood pressure Diastolic blood pressure Provider Name and Address Organization Details Last Updated DateTime 04/28/2024 110 mm[Hg] 60 mm[Hg] Kimberley Rivera [place] - [facility] 04/28/2024 17:00:37 Date Recorded Systolic blood pressure Diastolic blood pressure Provider Name and Address Organization Details Last Updated DateTime 07/17/2024 128 mm[Hg] 84 mm[Hg] Tiff Moody [place] - [facility] 07/17/2024 14:04:46 Social History Question Answer Notes LastModified by Organizat ion Details LastModified Time Tobacco Smoking Status Former Smoker Marijuana , light smoker Nishant Tiwari [place] null, [place] - [facility] 11/30/2021 14:58:30 Do You Have An Advance [...] 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 No Information not available 12/06/2021 What Was [...] Anxious, Or Unable To Sleep At Night)? [id number] Information not available 07/26/2021 Do You Use Any Illicit Or Recreational Drugs? Yes Information not available 07/26/2021 Do You Use Sunscreen Routinely? No Information not available 07/26/2021 Has Tobacco Cessation Counseling Been Provided? Yes [email or web address] Information not available 07/17/2024 On What Date Was Tobacco Cessation Counseling Provided? 07/17/2024 [email or web address] Information not available 07/17/2024 How Many Years [...] High Blood Pressure N Atrial Fibrillation N Thyroid Problems N Kidney or Bladder Problems N GI Problems N Depression N COPD N Blood Clots N Skin Problems N Anemia N Heart Attack (DC) N Diabetes N Anxiety Disorder N Muscle, [...] Vaccine Type Date Status Note Provider Nam kim and Address Organization Details Recorded Time COVID-19, mRNA, LNP-S, PF, 30 mcg/0.3 mL dose 12/19/2021 completed Emilie Pollack null, [place] - [facility] 05/26/2024 17:15:24 COVID-19, mRNA, LNP-S, PF, 30 mcg/0.3 mL dose 01/10/2022 completed Emilie Peraltaarza [place], [place] - [facility] 05/26/2024 17:15:24 Past Encounters Encounter ID Performer Location Encounter Start Date Encounter Closed Date Diagnosis/Indication Diagnosis SNOMED-CT Code Diagnosis ICD10 Code Diagnosis Note [id number] MATTY ASENCIO [facility] [address] [place] [address] 10/07/2019 14:28:04 10/08/2019 11:53:37 Candidiasis of vagina 44580203 B37.3 patient gets Yeast infection while on abx. She is on day 7/10 of amoxicilli n for uti and ear infection. c/o thick white discharge and itch. denies fever, chills, dysuria, increased frequency. does nto want std testing today. On exam no flank pain, suprapubic pain. ear infection has resolved. - take diflucan tablet once- f/u if not improving [id number] MATTY ASENCIO [facility] [address] [place] [address] 12/30/2019 13:45:55 01/06/2020 06:26:14 Increased frequency of urination 038687677 R35.0 patient continues to have UTI symptoms. Will check labs before treating as she has already been treated twice for UTI. Abnormal u terine bleeding 0775980171 9100 N93.9 Patient states she has vaginal blood. She has been recently diagnosed with STI and treated in ER. We will retest incase she is resistant to the antibiotic s. Advised to have pap smear done. [id number] MATTY ASENCIO [facility] [address] [place] [address] 04/12/2020 12:04:26 04/13/2020 11:04:27 Increased frequency of urination 998930035 R35.0 Increased frequency of urination. - UA +- macrobid- Culture- hydrate Abnormal u terine bleeding 2011723831 9100 N93.9 patient having discharge, recently treated for trichomona s. Will recehck lab to be sure it was effectivel y treated. [id number] Jose Tijerina MD [facility] [address] [place] [address] 06/25/2020 15:28:39 06/29/2020 08:10:52 Urinary tract infectious disease 42221557 N39.0 by history, are frequent [id number] MATTY ASENCIO [facility] [address] [place] [address] 10/07/2020 07:57:39 10/09/2020 08:31:25 Bacterial vaginosis 866901648 N76.0 patietn with fishy smell and white discharge x 2 weeks. denies fever, chills, abdominal pain, pelvic pain, disuria, blood in urine - negative UA in office - will treat for BV - f/u if symptoms do not or improve or worsen [id number] MATTY ASENCIO [facility] [address] [place] [address] 11/18/2020 15:01:32 11/22/2020 18:13:49 Onychomycosis of toenails 519359328 B35.1 BL first toe fungus and 4th toe on left foot. no sign of infection. nails are thickened and slightly raised. Adult [facility] examination 111352696 Z00.00 Patient presents for well exam. C/O [...] soda - encouraged more veggies and fruits [id number] Bertrand Mccrary DPM [facility] [address] [place] [address] 12/14/2020 14:55:47 12/14/2020 16:04:39 Onychomycosis 211856973 B35.1 [id number] [facility] [address] [place] [address] 01/27/2021 14:44:57 01/28/2021 09:42:31 Onychomycosis 399755747 B35.[id number] [facility] [address] [place] [address] 05/04/2021 11:14:33 05/05/2021 09:09:58 Infection of tooth 990558285 K04.7 - f/u surgeon- f/u la natalie for cleaning- brush teeth- take abx as prescribed [id number] MATTY HANSEN [facility] [address] [place] [address] 07/26/2021 08:44:28 07/27/2021 08:02:18 Candidiasis of vagina 98770923 B37.3 thick, white vaginal discharge, odor, and irritation x1 motrial fluconazol eadvised pt to f/u in office if sx don't improve to check for STDs, BV Depression screening 171 732073 Z13.31 PHQ 0 [id number] MATTY ASENCIO [facility] [address] [place] [address] 10/06/2021 12:21:47 10/07/2021 09:46:19 Perianal abscess 53313071 K61.0 large 3 o'clock perianal abscess (approx 2x2.5 inches), recurring, multiple small abscess at 7-8 o'clock. Had them drained in ER once at [place] and once at [place]. - denies medication to allergy- large abscess without a head, worry for rectal involvemen t.- multiple small chanelle-anal ones draining and smaller- surgery referral sent- ER if pain worsens or cannot get in quicker [id number] MATTY ASENCIO [facility] [address] [place] [address] 11/30/2021 14:32:32 12/01/2021 11:22:08 Perianal abscess 34341262 K61.0 large 3 o'clock perianal abscess (approx 2x2.5 inches), recurring, multiple small abscess at 7-8 o'clock. Had them drained in ER once at [place] and once at [place]. did not go to appointmen t on 10/11/21 but states she will go now. She knows an MA there and did not want her to know this about her. - denies medication to allergy- large abscess without a head, worry for rectal involvemen t.- multiple small chanelle-anal ones draining and smaller- surgery referral sent- ER if pain worsens or cannot get in quicker [id number] Siva Paulino MD [facility] [address] [place] [address] 12/06/2021 14:35:59 12/08/2021 12:18:48 Perianal fistula 31923424 K60.3 patient with fistula in ano, likely [...] OR as soon as is convenient . [id number] MATTY HANSEN [facility] [address] [place] [address] 02/16/2022 12:15:17 02/17/2022 08:42:24 Vaginal discharge 858181893 N89.8 x3 wkswhite, thick discharge, constantl y wet sexual ly active 3 months agono UA sxnot related to menstrual cycle, LMP 01/27/22nu swab vg + hsv Acne 97210193 L70.9 c/o acne to bilateral cheeks for yrs using a variety of face washes w/o improvemen tPEx- open comedones and papules to bilateral cheekstria l differin gel and cetaphil face wash OTC Depression screening 171 358271 Z13.31 PHQ 0 [id number] Siva Paulino MD [facility] [address] [place] [address] 02/23/2022 16:13:59 02/24/2022 09:44:48 Anogenital hidradenitis suppurativa 160247394 L73.2 patient doing well s/p I&D and debridemen t of anal abscess. However she has developed an additional abscess in the anal area as well as 2 small ones in her mons area. This raises the possiblity of hidradenit is of the anogential area. Will start 12 week course of minocyclin e and refer to dermatolog y. [id number] MATTY ASENCIO [facility] [address] [place] [address] 06/07/2022 11:13:36 06/12/2022 16:11:41 Anogenital hidradenitis suppurativa 497045436 L73.2 patient who underwent I&D and debridemen t of anal abscess. However she has developed an additional abscess in the anal area Likely hidradenit is of the anogenital area. Will start 12 week course of minocyclin e as did not fruit or nut picker in February. Will re-send her abx.- ER if worsens, refuses- SHE Called surgeon office one month ago, has not heard back. encouraged calling again. Overweight 883908132 E66 .3 [id number] MATTY HANSEN [facility] [address] [place] [address] 08/08/2022 14:57:25 08/10/2022 10:06:17 Vaginal irritation 759729127 N89.8 trial diflucan for vaginal itchingche ck nu swab Venereal d isease screening 215559830 Z11.3 STD screen Overweight 094777685 E66 .[id number] [facility] [address] [facility] [place] [address] 01/04/2023 14:00:45 01/04/2023 14:30:16 Anogenital hidradenitis suppurativa 114772314 L73.2 needs to contact ER Overweight 837165141 E66 .3 Sebaceous cyst of skin 798609924 L72.3 draining large cyst wit R eyelid involvemen tadvised ER to drainage and due to size and vision disturbanc ewill need derm [id number] Tiff Moody MA [facility] [address] [place] [address] 03/14/2023 11:01:47 03/14/2023 11:18:[id number] [facility] [address] [place] [address] 08/06/2023 10:22:12 08/07/2023 11:40:59 Anogenital hidradenitis suppurativa 180352927 L73.2 patient doing well s/p I&D and debridemen t of anal abscess 12/2021. However she has developed an additional abscess. This raises the possibilit y of hidradenit is of the anogential area. Will start 12 week course of doxycyclin e and refer to dermatolog y. Vaginal discharge 548649 006 N89.8 c/o of liquid white discharge that comes out after urinating. denies dysuria, pain, blood, chills, fever, pruritis, rash - nuswab in office [id number] Glo Morgan MA [facility] [address] [place] [address] 08/23/2023 10:29:58 08/23/2023 15:49:44 Dysuria 65575216 R30.0 [id number] BRITTNEE OCHOA NP [address] [address] 04/28/2024 16:38:13 04/29/2024 10:06:03 Obesity 979148430 E66.9 Tuberculos is screening 498391622 Z11.1 Return to clinic in 48-72 hours for test reading. [id number] MATTY ASENCIO [facility] [address] [place] [address] 07/17/2024 14:00:22 07/17/2024 14:49:26 Gynecologic examination 27112604 Z01.419 Pap obtainedCB E performedB reast education providedr/ o since no period since November- does have spottingab ortion 03/26/24 at 16 weeks Anogenital hidradenitis suppurativa 688710391 L73.2 patient doing well s/p I&D and debridemen t of anal abscess 12/2021. She is on senior care doxy and does not wish to be on it. - recommend bleach baths 1-2x per week. dilute 1/8 cup in a tub full of water and soak- apply hibiclens- glycolic acid may also help on external boils Obesity 021582133 E66.9 Health Concerns Section Related Observation LastModified [...] 2020 (MEDICAID REPLACEMENT - HMO) Martina Chatterjee [id number] Martina Chatterjee 08/06/2023 1 [employer] [place] - DOS ON OR AFTER 2020 (MEDICAID REPLACEMENT - HMO) Martina Chatterjee [id number] Martina Chatterjee 08/23/2023 1 [employer] [place] (MEDICAID REPLACEMENT - HMO) Martina Chatterjee [id number] Martina Chatterjee 04/28/2024 1 [employer] [place] - [place]) Martina Chatterjee [id number] Martina Chatterjee 07/17/2024 1 [employer] [place]AC[place] - [place]) Martina Chatterjee [id number] Martina Chatterjee Notes Date Note Type Note Provider Name and Address Organization Details Recorded Time 08/06/2023 text/html pt agrees to PV due to winter weather patient continues to struggle with new abscess in anogenital region. She needs new referral. She would like to come in tomorrow for nuswab. c/o of liquid white discharge that comes out after urinating. 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 No recent fevers, cough, congestion. No SOB or chest pain. No n/v/d. No sick contacts. No exposure to tb. BRITTNEE OCHOA NP Attn: [address] [place], [address], [facility] 04/28/2024 17:20:58 07/17/2024 text/html Martina is here for papPatient had at 4 months on 03/26/24. no complications. She has had spotting since that time. She has anoGU hydradenitis and on senior care doxycycline. She does not want to take it any more. LMP: [id number] Pap: 2019?Contraception :STI hx:Fam hx: breast, cervical, uterine, ovarian cancers MATTY ASENCIO Attn: [address] [place], [address], [facility] 07/17/2024 14:45:27 OBGyn Episode No OBEpisode recorded.
== END 2024-08-08 00:23 | disposition home or self-care (01) ==
PROVIDERS: Registered Nurse; Emergency Provider Physician Assistant
DX: L05.01 Pilonidal cyst with abscess (principal); N39.0 Urinary tract infection, site not specified; Z87.891 Personal history of nicotine dependence
CPT/HCPCS: 36415; 74177; 80053; 81001; 81025; 83605; 84484; 85025; 85610; 85730; 86140; 93005; 96361; 96374; 96375; 99284; A9270; J1885; J2270; J2405; J7030; Q9967

== ENCOUNTER 2024-10-06 01:29 | Emergency (ER) | payer OTHER, SELFPAY ==
[2024-10-06 01:30] VITALS: BP 136/103; PULSE 75; RESP 18; TEMP 36.6; O2SAT 100
--- OUTSIDE RECORDS SUMMARY | 2024-10-06 01:31 | XMS_ITS | Clinical Summary ---
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 Detection and Quantitation by Real-Time Reverse Architectural Design Professor-PCR.Current Interpretive data was last revised on 2016. Blood specimen (specimen) 12/03/2017 12:35 PM CDT 12/03/2017 2:02 PM CDT Narrative DEJAH WILKERSON - 12/04/2017 9:34 AM CDT us Klarissa Regan NP LAB MICROBIOLOGY - GENERAL ORDERABLES Edited Result - Final DEJAH WILKERSON [facility] Department [place] [address] from Last 3 Months or Most Recently Relevant to Health Maintenance [place] [employer] [facility]TER [facility] [place] Advance Directives For more information, please contact: [phone] * Full Code (Latest Code Status on [...] n case of cardiopulmonary arrest Care Teams Ballroom Dance Instructor Relationship Specialty Start Date End Date Alicia Rodriguez PA [address] [place] [address] PCP - General Physician Pheresis Nurse 01/04/23
--- OUTSIDE RECORDS SUMMARY | 2024-10-06 01:31 | XMS_ITS | Referral Summary ---
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 If positive or greyzone, a second separately collected sample should be submitted for Hepatitis C Virus RNA. Detection and Quantitation by Real-Time Reverse Explosive Operator Fuse-PCR.Current Interpretive data was last revised on 2016. Blood specimen (specimen) 12/03/2017 12:35 PM CDT 12/03/2017 2:02 PM CDT Narrative [facility] - 12/04/2017 9:34 AM CDT us Klarissa Regan NP LAB MICROBIOLOGY - GENERAL ORDERABLES Edited Result - Final [facility] Department [place] [address] from Last 3 Months or Most Recently Relevant to Health Maintenance [place] [facility] Advance Directives For more information, please contact: [phone] * Full Code (Latest Code Status on [...] n case of cardiopulmonary arrest Care Teams Maintenance Apprentice Relationship Specialty Start Date End Date Alicia Rodriguez PA [address] [place] [id number] PCP - General Physician Hand Engraver 01/04/23
--- OUTSIDE RECORDS SUMMARY | 2024-10-06 01:31 | XMS_ITS | Clinical Summary ---
Author Organization [facility] Address [facility] [place] [address] Care Team Providers Care Sheep Sticker Name Role Phone Unavailable Primary Care Provider [...] patient's age to complete this topic Meningococcal B Vaccine Aged Out No l onger eligible based on patient's age to complete [...]
--- OUTSIDE RECORDS SUMMARY | 2024-10-06 01:31 | XMS_ITS | Data Portability ---
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 Plan of Treatment Reminders Order Date Submit Date Provider Last Modified By Organization Details Last Modified Time Details Appointments None recorded. Lab pap, IG + reflex HPV 2024 025 BAGDAD [facility], [address] [facility], [address], [place], [address], 5 11:34:54 urinalysi s, dipstick 2024 025 CORNEL In-Office Order, Internal Use Only DO Not Attach Compendium DO Not Attach Compendium, Do Not Delete/merge, [id number] 14:46:41 test, urine 2024 025 CORNEL In-Office Order, Internal Use Only DO Not Attach Compendium DO Not Attach Compendium, Do Not Delete/merge, [id number] 14:46:52 vaginal pathogens panel, SHADY+probe , vaginal fluid 2024 025 CORNEL [facility], [address] [facility], [address], [place], [address], 5 07:07:49 PPD (purified protein derivativ e), skin test 2023 024 CORNEL In-Office Order, Internal Use Only DO Not Attach Compendium DO Not Attach Compendium, Do Not Delete/merge, [id number] 18:05:23 culture, urine 2023 024 BAGDAD [facility], [address] [facility] [address], [address], [place], [address], 4 03:37:16 vaginal pathogens panel, SHADY+probe , vaginal fluid 2023 024 brea [facility], [address], [address], [place], [address], 4 15:25:48 Referral dermatolo gist referral - anogenita l hidradeni tis 2023 024 [email or web address] Sania Newberry MD (Dermatology) , [address] [facility] , [facility], [place], [address], 4 10:43:39 Procedures None recorded. Surgeries None recorded. Imaging None recorded. Medication Orders Tubersol 5 tub. unit/0.1 mL intraderm al injection solution 2023 [email or web address] Not available 17:35:07 doxycycli ne monohydra te 100 mg tablet 2023 024 BAGDAD [id number], [address] [place], [address], 4 12:10:26 Patient TargetsNo targets recorded. Patient Instructions Encounter Date Encounter Id Patient Instructions Last Modified By Organization Details Last Modified Time 04/28/2024 [id number] A healthy lifestyle: care instructions Not available 04/28/2024 17:20:37 tuberculin skin test: care instructions Not available 04/28/2024 17:20:37 07/17/2024 [id number] A healthy lifestyle: care instructions [email or web address] Not available 07/17/2024 14:43:54 Reason for Referral Manager Fiber Referral for A nogenital hidradenitis suppurativa anogenital hidradenitis Referring Physician: Yara Gallegos, Esthetics Instructor, Encounter Date: 08/06/2023 Results Created Date Observation Date Name Description Value Unit Range Abnormal Flag Note LastModifiedBy Organization Detail LastModifiedTime 08/23/19 24 08/25/2023 URINE CULTU RE, ROUTI NE urine culture, routine Final report Not Available [facility] ([facility]) [address] [facility] [address], [place], [address], 08/25/2023 03:37:16 08/23/19 24 08/25/2023 URINE CULTU RE, ROUTI NE result 1 No growth Not Available [facility] ([facility]) [address] [facility], [place], [address], 08/25/2023 03:37:16 04/30/20 24 04/30/2024 PPD (jace fied prote in deriv ative ), skin test Result Negati ve Not Available In-Office Order Internal Use Only DO Not Attach Compendium DO Not Attach Compendium, Do Not Delete/merge, [id number] 04/28/2024 17:19:55 07/17/1907/20/2024 NUSWA B VAGIN ITIS PLUS (VG+) atopobium vaginae HIGH - 2 score abnormal Not Available [facility] ([facility]) [address] [facility], [place], [address], 07/21/2024 07:07:49 07/17/19 25 07/20/2024 NUSWA B VAGIN ITIS PLUS (VG+) bvab 2 HIGH - 2 score abnormal Not Available [facility] ([facility]) [address] [place], [address], 07/21/2024 07:07:49 07/17/19 25 07/20/2024 NUSWA B [...] prese nce of BV. Not Available [facility] ([facility]) [address] [facility], [place], [address], 07/21/2024 07:07:49 07/17/19 25 07/20/2024 NUSWA B VAGIN ITIS PLUS (VG+) rabia albicans, SHADY NEGATI VE negati ve Not Available [facility] ([facility]) [address] [facility], [place], [address], 07/21/2024 07:07:49 07/17/19 25 07/20/2024 NUSWA B VAGIN ITIS PLUS (VG+) rabia glabrata, SHADY NEGATI VE negati ve Not Available [facility] ([facility]) [address] [facility], [place], [address], 07/21/2024 07:07:49 07/17/19 25 07/21/2024 NUSWA B VAGIN ITIS PLUS (VG+) trich vag by SHADY POSITI VE negati ve abnormal Not Available [facility] ([facility]) [address] [place], [address], 07/21/2024 07:07:49 07/17/19 25 07/21/2024 NUSWA B VAGIN ITIS PLUS (VG+) chlamydia trachomatis, SHADY NEGATI VE negati ve Not Available [facility] ([facility]) [address] [place], [address], 07/21/2024 07:07:49 07/17/19 25 07/21/2024 NUSWA B VAGIN ITIS PLUS (VG+) neisseria gonorrhoeae, SHADY NEGATI VE negati ve Not Available [facility] ([facility]) [address], [place], [address], 07/21/2024 07:07:49 07/17/19 25 07/18/2024 IGP,A PTIMA HPV,A GE GDLN age gdln acog testing 30-65 Not Available [facility] ([facility]) [address], [place], [address], 07/22/2024 11:34:54 07/17/19 25 07/22/2024 IGP, APTIM A HPV, RFX 16/18 ,45 diagnosis: CHARLOTTE MARTIN FOR INTRA EPITH ELIAL LESIO N OR NOVA JAIME . TRICH OMONA S VAGIN APURVA IS PRESE NT. CELLU CHELSY THOMPSON ES ASSOC IATED WITH INFLA MMATI ON ARE PRESE NT. Not Available [facility] [address] [facility] [address], [place], [address], 07/22/2024 11:34:55 07/17/19 25 07/22/2024 IGP, APTIM A HPV, RFX 16/18 ,45 specimen adequacy: CHARLOTTE Galindo Satis facto ry for evalu ation . Endoc ervic al and/o r squam ous metap lasti c cells (endo cervi john compo nent) are prese nt. Not Available [facility] [address] [facility] [address], [place], [address], 07/22/2024 11:34:55 07/17/19 25 07/22/2024 IGP, APTIM A HPV, RFX 16/18 ,45 clinician provided ICD10: CHARLOTTE Galindo Z01.4 19 Not Available [facility] [address], [place], [address], 07/22/2024 11:34:55 07/17/19 25 07/22/2024 IGP, APTIM A HPV, RFX 16/18 ,45 performed by: CHARLOTTE Thrasher er, Cytot vickie bingham t (ASCP ) Not Available [facility], [place], [address], 07/22/2024 11:34:55 07/17/19 25 07/22/2024 IGP, APTIM A HPV, RFX 16/18 ,45 . . Not Available [facility] [address] [place] [address] [address], [place], [address], 07/22/2024 11:34:55 07/17/19 25 07/22/2024 IGP, APTIM A HPV, RFX 16/18 ,45 note: CHARLOTTE Galindo The Pap smear is a scree alvin [...] repor ts do occur . Not Available [facility], [place], [address], 07/22/2024 11:34:55 07/17/19 25 07/22/2024 IGP, APTIM A HPV, RFX 16/18 ,45 test methodology: - The Thin Prep( R) Image r was unabl e to read this speci men. There fore a manua l revie w was perfo rmed. Not Available [facility], [place], [address], 07/22/2024 11:34:55 07/17/19 25 07/22/2024 IGP, APTIM A HPV, RFX 16/18 ,45 HPV aptima NEGATI VE negati ve This nucle ic acid ampli ficat ion test detec ts fourt een high- risk HPV types (16,1 8,31, 33,35 ,39,4 5,51, 52,56 ,58,5 9,66, 68) witho ut diffe renti ation . Not Available [facility] [address], [place], [address], 07/22/2024 11:34:55 07/17/19 25 07/22/2024 IGP, APTIM A HPV, RFX 16/18 ,45 HPV genotype reflex COMMEN T Crite abiel not met, HPV Genot ype not perfo rmed. Not Available [facility] [address], [place], [address], 07/22/2024 11:34:55 07/17/19 25 07/17/2024 urina lysis , dipst ick Leukocytes Modera [...] 25 07/17/2024 urina lysis , dipst ick Urobilinogen 2 Not Available In-Of fice Order Internal Use Only DO Not Attach Compendium DO Not Attach Compendium, Do Not Delete/merge, 07/17/2024 14:35:39 07/17/19 25 07/17/2024 urina lysis , dipst ick Protein 30 Not Available In-Office Order Internal Use Only DO Not Attach Compendium DO Not Attach Compendium, Do Not Delete/merge, 07/17/2024 14:35:39 07/17/19 25 07/17/2024 urina lysis , dipst ick pH 7.5 [...] 07/17/2024 urina lysis , dipst ick Specific [place] 1.020 Not Available In-Off ice Order Internal [...] DO Not Attach Compendium, Do Not Delete/merge, [id number] 07/17/2024 14:35:40 07/17/1907/17/2024 pap, IG + CT/NG + HPV + refle x HPV (16+1 8+45) HPV neg Not Available Not Availa ble 09/04/2024 14:57:10 07/18/19 25 07/18/2024 CAROLYNE Arvizu NOTE please note Commen t The date and/o r time of colle ction was not indic ated on the requi sitio n as requi red by state and matthew al law. The date of recei pt of the speci men was used as the colle ction date if not suppl ied. Not Available [facility] ([facility]) [address] [place], [address], 07/20/2024 02:06:17 07/18/1907/20/2024 URINE CULTU RE, ROUTI NE urine culture, routine FINAL REPORT Not Available [facility] ([facility]) [address] [place], [address], 07/20/2024 02:06:19 07/18/1907/20/2024 URINE CULTU RE, ROUTI NE result 1 NO GROWTH Not Available [facility] ([facility]) [address] [place], [address], 07/20/2024 02:06:19 Result Notes None recorded. Problems Name Problem SNOMED Code Status Onset Date Resolution Date Notes Provider Name and Address Organization Details Recorded Time Anogenital hidradenitis suppurativa 627501985 Active 2023 MATTY ASENCIO Attn: Daryl g,[address] [facility], [place], [address], [facility] 12:10:00 Problem Notes None recorded. Procedures Surgical History Date Name Laterality Status Provider Name and Address Organization Details Recorded Time 07/16/2018 Date of Last Pap Smear completed Emilie Pollack MA [place] - [facility] 10/06/2021 12:29:10 Imaging Results None recorded. Procedure Notes None recorded. Medical Equipment None Reported. Allergies Allergen ID Allergen Name Allergen Category Reaction Reaction Severity Criticality Documentation Date Start Date Code Code System Note Provider Name and Address Organization Details Recorded Time 155097 Substance with sulfonami de structure and antibacte rial mechanism of action (substanc e) medicatio n Not available Not available Not available 02/16/2022 38403 8003 SNOMED Not Available Not Available Not [...] Updated DateTime 4 165.1 cm 33.6 kg/m2 38275.6 6 g 99 % 99 % 76 /min 16 /min 97.7 [degF] 110 mm[Hg] 60 mm[Hg] Kimberley Rivera MA [facility] 4 17:00:37 Date Recorded Body height Body mass index (BMI) Body weight Heart rate Respiratory rate Oxygen saturation Oxygen saturation in Arterial blood by Pulse oximetry Systolic blood pressure Diastolic blood pressure Provider Name and Address Organization Details Last Updated DateTime 5 165.1 cm 34.4 kg/m2 73262.6 2 g 89 /min 16 /min 97 % 97 % 128 mm[Hg] 84 mm[Hg] Tiff Moody MA [facility] 5 14:04:46 Social History Question Answer Notes LastModified by Organizat ion Details LastModified Time Tobacco Smoking Status Former Smoker Marijuana , light smoker Nishant Tiwari MA [facility] 11/30/2021 14:58:30 Do You Have An Advance [...] 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 No Information not available 12/06/2021 What Was [...] Anxious, Or Unable To Sleep At Night)? [id number] Information not available 07/26/2021 Do You Use Any Illicit Or Recreational Drugs? Yes Information not available 07/26/2021 Do You Use Sunscreen Routinely? No Information not available 07/26/2021 Has Tobacco Cessation Counseling Been Provided? Yes [email or web address] Information not available 07/17/2024 On What Date Was Tobacco Cessation Counseling Provided? 07/17/2024 [email or web address] Information not available 07/17/2024 How Many Years [...] Skin Problems N Anemia N Heart Attack ([place]) N Diabetes N Seizures/Epilepsy N Asthma N Allergies N Hepatitis N Hypertension N Osteoporosis N Heart Failure [...] PF, 30 mcg/0.3 mL dose 12/19/2021 completed [place] - [facility] 05/26/2024 17:15:24 COVID-19, mRNA, LNP-S, PF, 30 mcg/0.3 mL dose 01/10/2022 completed [place] [facility] 05/26/2024 17:15:24 Past Encounters Encounter ID Performer Location Encounter Start Date Encounter Closed Date Diagnosis/Indication Diagnosis SNOMED-CT Code Diagnosis ICD10 Code Diagnosis Note [id number] MATTY ASENCIO [facility] [address] [place] [address] 10/07/2019 14:28:04 10/08/2019 11:53:37 Candidiasis of vagina 36132165 B37.3 patient gets Yeast infection while on abx. She is on day 7/10 of amoxicilli n for uti and ear infection. c/o thick white discharge and itch. denies fever, chills, dysuria, increased frequency. does nto want std testing today. On exam no flank pain, suprapubic pain. ear infection has resolved. - take diflucan tablet once- f/u if not improving [id number] MATTY ASENCIO [facility] [address] [place] [address] 12/30/2019 13:45:55 01/06/2020 06:26:14 Increased frequency of urination 926477630 R35.0 patient continues to have UTI symptoms. Will check labs before treating as she has already been treated twice for UTI. Abnormal u terine bleeding 1018428991 9100 N93.9 Patient states she has vaginal blood. She has been recently diagnosed with STI and treated in ER. We will retest incase she is resistant to the antibiotic s. Advised to have pap smear done. [id number] MATTY ASENCIO [facility] [address] [place] [address] 04/12/2020 12:04:26 04/13/2020 11:04:27 Increased frequency of urination 922051080 R35.0 Increased frequency of urination. - UA +- macrobid- Culture- hydrate Abnormal u terine bleeding 9172563510 9100 N93.9 patient having discharge, recently treated for trichomona s. Will recehck lab to be sure it was effectivel y treated. [id number] Jose Tijerina MD [facility] [address] [place] [address] 06/25/2020 15:28:39 06/29/2020 08:10:52 Urinary tract infectious disease 67916493 N39.0 by history, are frequent [id number] MATTY ASENCIO [facility] [address] [place] [address] 10/07/2020 07:57:39 10/09/2020 08:31:25 Bacterial vaginosis 365957188 N76.0 patietn with fishy smell and white discharge x 2 weeks. denies fever, chills, abdominal pain, pelvic pain, disuria, blood in urine - negative UA in office - will treat for BV - f/u if symptoms do not or improve or worsen [id number] MATTY ASENCIO [facility] [address] [place] [address] 11/18/2020 15:01:32 11/22/2020 18:13:49 Onychomycosis of toenails 373359966 B35.1 BL first toe fungus and 4th toe on left foot. no sign of infection. nails are thickened and slightly raised. Adult [facility] th examination 332096864 Z00.00 Patient presents for well exam. C/O [...] soda - encouraged more veggies and fruits [id number] [facility] [address] [place] [address] 12/14/2020 14:55:47 12/14/2020 16:04:39 Onychomycosis 514222637 B35.1 [id number] Bertrand Mccrary [facility] [address] [place] [address] 01/27/2021 14:44:57 01/28/2021 09:42:31 Onychomycosis 965419745 B35.1 [id number] MATTY ASENCIO [facility] [address] [place] [address] 05/04/2021 11:14:33 05/05/2021 09:09:58 Infection of tooth 367333526 K04.7 - f/u surgeon- f/u la natalie for cleaning- brush teeth- take abx as prescribed [id number] MATTY HANSEN [facility] [address] [place] [address] 07/26/2021 08:44:28 07/27/2021 08:02:18 Candidiasis of vagina 18326716 B37.3 thick, white vaginal discharge, odor, and irritation x1 motrial fluconazol eadvised pt to f/u in office if sx don't improve to check for STDs, BV Depression screening 171 036347 Z13.31 PHQ 0 [id number] MATTY ASENCIO [facility] [address] [facility] [place] [address] 10/06/2021 12:21:47 10/07/2021 09:46:19 Perianal abscess 15307738 K61.0 large 3 o'clock perianal abscess (approx 2x2.5 inches), recurring, multiple small abscess at 7-8 o'clock. Had them drained in ER once at [place] and once at [place]. - denies medication to allergy- large abscess without a head, worry for rectal involvemen t.- multiple small chanelle-anal ones draining and smaller- surgery referral sent- ER if pain worsens or cannot get in quicker [id number] MATTY ASENCIO [facility] [address] [place] [address] 11/30/2021 14:32:32 12/01/2021 11:22:08 Perianal abscess 29821363 K61.0 large 3 o'clock perianal abscess (approx 2x2.5 inches), recurring, multiple small abscess at 7-8 o'clock. Had them drained in ER once at [place] and once at [place]. did not go to [facility] on 10/11/21 but states she will go now. She knows an MA there and did not want her to know this about her. 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 [id number] MATTY HANSEN [facility] [address] [place] [address] 02/16/2022 12:15:17 02/17/2022 08:42:24 Vaginal discharge 898073410 N89.8 x3 wkswhite, thick discharge, constantl y wet sexual ly active 3 months agono UA sxnot related to menstrual cycle, LMP 01/27/22nu swab vg + hsv Acne 08274247 L70.9 c/o acne to bilateral cheeks for yrs using a variety of face washes w/o improvemen tPEx- open comedones and papules to bilateral cheekstria l differin gel and cetaphil face wash OTC Depression screening 171 199149 Z13.31 PHQ 0 [id number] Siva Paulino MD [facility] [address] [place] [address] 02/23/2022 16:13:59 02/24/2022 09:44:48 Anogenital hidradenitis suppurativa 625120389 L73.2 patient doing well s/p I&D and debridemen t of anal abscess. However she has developed an additional abscess in the anal area as well as 2 small ones in her mons area. This raises the possiblity of hidradenit is of the anogential area. Will start 12 week course of minocyclin e and refer to dermatolog y. [id number] MATTY ASENCIO [facility] [address] [place] [address] 06/07/2022 11:13:36 06/12/2022 16:11:41 Anogenital hidradenitis suppurativa 933940712 L73.2 patient who underwent I&D and debridemen t of anal abscess. However she has developed an additional abscess in the anal area Likely hidradenit is of the anogenital area. Will start 12 week course of minocyclin e as did not meat pickler in February. Will re-send her abx.- ER if worsens, refuses- SHE Called surgeon office one month ago, has not heard back. encouraged calling again. Overweight 028040986 E66 .3 [id number] MATTY HANSEN [facility] [address] [place] [address] 08/08/2022 14:57:25 08/10/2022 10:06:17 Vaginal irritation 228980969 N89.8 trial diflucan for vaginal itchingche ck nu swab Venereal d isease screening 200573449 Z11.3 STD screen Overweight 927120116 E66 .3 [id number] MATTY ASENCIO [facility] [address] [place] [address] 01/04/2023 14:00:45 01/04/2023 14:30:16 Anogenital hidradenitis suppurativa 847656441 L73.2 needs to contact ER Overweight 644314411 E66 .3 Sebaceous cyst of skin 637918694 L72.3 draining large cyst wit R eyelid involvemen tadvised ER to drainage and due to size and vision disturbanc ewill need derm [id number] Tiff Moody MA [facility] [address] [place] [address] 03/14/2023 11:01:47 03/14/2023 11:18:26 [id number] MATTY ASENCIO [facility] [address] [place] [address] 08/06/2023 10:22:12 08/07/2023 11:40:59 Anogenital hidradenitis suppurativa 171985304 L73.2 patient doing well s/p I&D and debridemen t of anal abscess 12/2021. However she has developed an additional abscess. This raises the possibilit y of hidradenit is of the anogential area. Will start 12 week course of doxycyclin e and refer to dermatolog y. Vaginal discharge 797414 006 N89.8 c/o of liquid white discharge that comes out after urinating. denies dysuria, pain, blood, chills, fever, pruritis, rash - nuswab in office [id number] Glo Morgan MA [facility] [address] [place] [address] 08/23/2023 10:29:58 08/23/2023 15:49:44 Dysuria 29057977 R30.0 [id number] BRITTNEE OCHOA NP [facility] [address] [place] [address] 04/28/2024 16:38:13 04/29/2024 10:06:03 Obesity 350228109 E66.9 Tuberculos is screening 466605370 Z11.1 Return to clinic in 48-72 hours for test reading. [id number] MATTY ASENCIO [facility] [address] [place] [address] 07/17/2024 14:00:22 07/17/2024 14:49:26 Gynecologic examination 36201032 Z01.419 Pap obtainedCB E performedB reast education providedr/ o since no period since November- does have spottingab ortion 03/26/24 at 16 weeks Anogenital hidradenitis suppurativa 748630744 L73.2 patient doing well s/p I&D and debridemen t of anal abscess 12/2021. 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 - recommend bleach baths 1-2x per week. dilute 1/8 cup in a tub full of water and soak- apply hibiclens- glycolic acid may also help on external boils Obesity 886994795 E66.9 Health Concerns Section Related Observation LastModified [...] 2020 (MEDICAID REPLACEMENT - HMO) Martina Chatterjee [id number] Martina Chatterjee 08/06/2023 1 [employer] [place] ON [place] AFTER 2020 (MEDICAID REPLACEMENT - HMO) Martina Chatterjee [id number] Martina Chatterjee 08/23/2023 1 [employer] [place] AFTER 2020 (MEDICAID REPLACEMENT - HMO) Martina Chatterjee [id number] Martina Chatterjee 04/28/2024 1 [employer] [place] ON [place] AFTER 2020 (MEDICAID REPLACEMENT - HMO) Martina Chatterjee [id number] Martina Chatterjee 07/17/2024 1 [employer] BETTER HEALTH OF [facility] ON OR AFTER 06/15/2020 (MEDICAID REPLACEMENT - HMO) Martina Chatterjee [id number] Martina Chatterjee Notes Date Note Type Note [...] pruritis, rash MATTY ASENCIO Attn: Accounting[address] [place], [address], [facility] 08/06/2023 12:13:55 04/28/2024 text/html 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 No recent fevers, cough, congestion. No SOB or chest pain. No n/v/d. No sick contacts. No exposure to tb. BRITTNEE OCHOA NP Attn: [address] [place], [address], [facility] 04/28/2024 17:20:58 07/17/2024 text/html Martina is here for papPatient had at 4 months on 03/26/24. no complications. She has had spotting since that time. She has anoGU hydradenitis and on middle or intermediate school principal doxycycline. She does not want to take it any more. LMP: [id number] Pap: 2019?Contraception :STI hx:Fam hx: breast, cervical, uterine, ovarian cancers MATTY ASENCIO Attn: Accounting[address] [place], [address], [facility] 07/17/2024 14:45:27 OBGyn Episode No OBEpisode recorded.
[2024-10-06 04:09] LABS: BEDSIDEPREGUCG Negative (Negative)
[2024-10-06 04:11] LABS: Add Urine Microscopic? YES; Appearance Urine Cloudy (Clear); Bacteria Urine None Seen /hpf; Bilirubin Urine Negative (Negative); Blood Urine 3+ (Negative); Color Urine Yellow (Yellow); Glucose Urine UA Negative (Negative); Ketones Urine Negative (Negative); Leukocyte Esterase Ur 1+ LEU/UL (Negative); Nitrate Urine Negative (Negative); Non Pathogenic Casts 0-2; Protein Urine 2+ mg/dL (Negative); RBC Urine >100 /hpf (0-2); Specific Grav Ur 1.023 (1.001-1.035); Squamous Epithelial Cell Urine None Seen /hpf (Few); Urobilinogen Urine 0.2 mg/dL (<2.0); WBC Urine >100 /hpf (0-3)
[2024-10-06 05:29] LABS: Trichomonas Vag PCR DETECTED (NOT DETECTE)
[2024-10-06 06:03] LABS: Chlamydia trachomatis NOT DETECTED (NOT DETECTE); Neisseria gonorrhoeae PCR NOT DETECTED (NOT DETECTE)
--- NOTE | 2024-10-06 06:16 | ED_ITS ---
HPI - Female Genitourinary General Chief complaint: Urogenital-Female Stated complaint: urinary sx Time Seen by Provider: 10/06/24 06:10 Source: patient Mode of arrival: ambulatory Limitations: no limitations History of Present Illness HPI Narrative: Patient presents with concerning urinary symptoms. She has been having dysuria and frequent urination and also noticed blood when wiping, though believed to be vaginal bleeding rather than hematuria No fevers or chills. Developed mid back pain while waiting in the ED but denies any flank pain. No nausea/vomiting. When she recently saw her PCP Alicia Rodriguez (KATELIN), she was diagnosed with trich. She was prescribed 2 medications, believes both were antibiotics (doxycycline was one, possibly for her skin). She doesn't know what the other antibiotic was but she took the med but skipped some days. No change in vaginal discharge odor. Denies any rashes. LMP early this month, around 3/10. Sexually active with 1 male partner in the last month but broke up because of concerns about monogomy. No control and/or condoms used. Related Data Allergies Allergy/AdvReac Type Severity Reaction Status Date / Time Sulfa (Sulfonamide Allergy Intermediate Itching Verified 10/06/24 01:30 Antibiotics) PMFSH Past Medical History Medical History Trichomoniasis Dentalgia UTI (urinary tract infection) Pilonidal abscess Abscess of labia Surgical History Surgical History History of incision and drainage Complex i&d left perirectal abscess 06/13/21 Family History Family History Other Diabetes mellitus Hypertension Social History Social History Smoking status: Former smoker Tobacco type: cigarettes Alcohol intake: current Substance use: current Substance use type: marijuana Living arrangements: with family Occupation/Education: occupation Gender identity (if verbalized by the patient): Female Spiritual care concerns: No Exam Narrative: GENERAL: Well-appearing, well-nourished, and in no acute distress. HEAD: Normocephalic, atraumatic. EYES: Non injected, non icteric ENT: Nares clear, no rhinorrhea or epistaxis. NECK: Supple. CHEST: Speaking in full sentences. No respiratory distress. HEART: Regular rate and rhythm. . ABDOMEN: Soft, nondistended. EXTREMITIES: Normal range of motion. No lower extremity edema. SKIN: Warm, dry, no rash. NEURO: No focal deficits. Alert and oriented x3. PSYCH: Normal mood and affect. Course Vital Signs Vital signs: Vital Signs Temperature 97.8 F 10/06/24 01:30 Pulse Rate 75 10/06/24 01:30 Respiratory Rate 18 10/06/24 01:30 Blood Pressure 136/103 H 10/06/24 01:30 Pulse Oximetry 100 10/06/24 01:30 Oxygen Delivery Room Air 10/06/24 01:30 Temperature 97.8 F 10/06/24 01:30 Pulse Rate 75 10/06/24 01:30 Respiratory Rate 18 10/06/24 01:30 Blood Pressure 136/103 H 10/06/24 01:30 Pulse Oximetry 100 10/06/24 01:30 Oxygen Delivery Room Air 10/06/24 01:30 MDM - Female Genitourinary MDM Narrative Medical decision making narrative: Patient presents with urinary concerns. Has been experiencing urinary frequency and dysuria. No fevers/chills, nausea/vomiting. Recently diagnosed with trich but did not complete course of antibiotics In the ED she is afebrile with vital signs notable for hypertension. Urinalysis is without bacteria but with other prominent symptoms including RBCs and WBCs and patient is symptomatic thus reasonable to treat for this as well as trich which is detected here today. Gonorrhea/chlamydia testing negative. Offered to perform pelvic exam but patient declines as she states she has no other concerns/issues/rashes/etc. test negative. Multiple previous urine cultures are reviewed which shows no growth. However, there is a urine culture from 12/2020 that tested positive for Klebs aerogenes (Enterobacter) that was resistant to amoxicillin/clavulanate and cefazolin but otherwise sensitive to other agents. Allergic to sulfa antibiotics so will treat with Nitrofurantoin; first dose in ED and rest of course prescribed. Metronidazole for trich; first dose in ED and rest of course prescribed. For the dysuria, pyridium given and prescribed and patient advised to avoid contact use and the staining of tears and urine. Verifies understanding. Differential Diagnosis Differential diagnosis: Likely urinary tract infection, bacterial vaginosis, trichomoniasis, cervicitis, vaginitis, cystitis and other Lab Data Attestation: I reviewed the patient's lab results. Labs: Lab Results 10/06/24 10/06/24 10/06/24 Range/Units 03:58 03:59 04:08 Urine Color Yellow (Yellow) Urine Appearance Cloudy H (Clear) Urine pH 6.0 (5.0-9.0) Ur Specific [place] 1.023 (1.001-1.035) Urine Protein 2+ H (Negative) mg/dL Urine Glucose (UA) Negative (Negative) mg/dL Urine Ketones Negative (Negative) mg/dL Ur Blood (Man) 3+ H (Negative) Urine Nitrate Negative (Negative) Urine Bilirubin Negative (Negative) Urine Urobilinogen 0.2 (<2.0) mg/dL Leukocyte Esterase Rfl 1+ H (Negative) ROS/UL Urine RBC >100 H (0-2) /hpf Urine WBC >100 H (0-3) /hpf Ur Squamous Epith Cells None seen (Few) /hpf Urine Bacteria None seen /hpf Urine Casts 0-2 POC Urine HCG, Qual Negative (Negative) C. trachomatis (PCR) Not detected (NOT DETECTE) N. gonorrhoeae (PCR) Not detected (NOT DETECTE) T. vaginalis (PCR) Detected A (NOT DETECTE) Discharge Plan Discharge Clinical Impression: UTI (urinary tract infection), Trichomoniasis, Dysuria Patient Disposition: Home, Self-Care Condition: Stable Instructions: Antibiotic Form, Trichomoniasis (ED), Urinary Tract Infection in Women (DC), Dysuria (ED) Additional Instructions: You received your 1st dose of antibiotic to treat the urinary tract infection and Trichomonas in the emergency department with the rest of the course prescribed. Do not drink alcohol while taking metronidazole/Flagyl as it can cause a reaction it makes you feel very sick to your stomach/nauseated. Pyridium/phenazopyridine can help with the pain you are experiencing from a urinary tract infection. It can discolor your urine and tears (turn them orange). Do not wear contact lenses while taking this medication. Follow-up with your primary care physician. Return to the emergency department with any new or worsening symptoms such as fever greater than 100.4? F, flank pain, intractable nausea/vomiting. Sexual partner(s) should be treated for the positive trichomonas; inform them. Avoid sexual contact until you have fully been treated by completing your course. Remember safe sex techniques for providing and sexually transmitted infections (e..g control, condoms, etc.). Drink plenty of water to stay hydrated. Wipe from the front to the back after urinating or having a bowel movement. Urinate after having sexual intercourse. Patient Language: Ecuadorean Prescriptions: New metronidazole 500 mg tablet 500 mg PO BID 7 Days Qty: 13 0RF Rx Instructions: start 10/06/24 PM; received first dose in ED in AM phenazopyridine 100 mg tablet 100 mg PO TID PRN (Reason: pain) Qty: 5 0RF Rx Instructions: received first dose in ED 10/06/24 AM; start PM nitrofurantoin monohyd/m-cryst [Macrobid] 100 mg capsule 100 mg PO Q12H 3 Days Qty: 6 0RF Rx Instructions: must administer with a meal/food No Action cephalexin 500 mg capsule 500 mg PO Q8H 7 Days Qty: 21 0RF nitrofurantoin monohyd/m-cryst 100 mg capsule 100 mg PO Q12H 5 Days Qty: 10 0RF Rx Instructions: must administer with a meal/food clindamycin HCl 150 mg capsule 450 mg PO Q8H 7 Days Qty: 63 0RF hydrocodone-acetaminophen 5-325 mg tablet 1 tablet PO Q6H PRN (Reason: pain) Qty: 5 0RF fluconazole 150 mg tablet 150 mg PO ONCE PRN (Reason: vaginal irritation) Qty: 1 0RF Rx Instructions: as a single dose Follow-up/Referrals: PHYSICIAN NOT ON STAFF,NONSTAFF [Non-Staff] - Stand Alone Forms: Work/School Release IP Time of Disposition: 06:51
--- OUTSIDE RECORDS SUMMARY | 2024-10-06 06:18 | XMS_ITS | Clinical Summary ---
Author Organization [facility] Address Formerly [facility], [facility] [place] [address] Care Team Providers Care Manager Transmission Name Role Phone Unavailable Primary Care Provider [...] this topic Meningococcal Vaccine Aged Out No inna dinorah eligible based on patient's age to [...]
--- OUTSIDE RECORDS SUMMARY | 2024-10-06 06:18 | XMS_ITS | Referral Summary ---
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 If positive or greyzone, a second separately collected sample should be submitted for Hepatitis C Virus RNA. Detection and Quantitation by Real-Time Reverse Remote Control Assembler-PCR.Current Interpretive data was last revised on 2016. Blood specimen (specimen) 12/03/2017 12:35 PM CDT 12/03/2017 2:02 PM CDT Narrative [facility] - 12/04/2017 9:34 AM CDT us Klarissa Regan NP LAB MICROBIOLOGY - GENERAL ORDERABLES Edited Result - Final [facility] One [facility] Department [place] [address] from Last 3 Months or Most Recently Relevant to Health Maintenance [place] [facility] Advance Directives For more information, please contact: [phone] * Full Code (Latest Code Status on [...] n case of cardiopulmonary arrest Care Teams Technology Solutions Architect Relationship Specialty Start Date End Date Aliica Rodriguez PA [address] [place] [id number] PCP - General Physician Boiler Assistant Operator 01/04/23
--- OUTSIDE RECORDS SUMMARY | 2024-10-06 06:18 | XMS_ITS | Clinical Summary ---
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 Detection and Quantitation by Real-Time Reverse Pigment Grinder-PCR.Current Interpretive data was last revised on 2016. Blood specimen (specimen) 12/03/2017 12:35 PM CDT 12/03/2017 2:02 PM CDT Narrative [facility] - 12/04/2017 9:34 AM CDT us Klarissa Regan NP LAB MICROBIOLOGY - GENERAL ORDERABLES Edited Result - Final [facility] One [facility] Department [place] [address] from Last 3 Months or Most Recently Relevant to Health Maintenance [place] [facility] [place] Advance Directives For more information, please contact: [phone] * Full Code (Latest Code Status on [...] n case of cardiopulmonary arrest Care Teams Lot Attendant Relationship Specialty Start Date End Date Alicia Rodriguez PA [address] [place] [address] PCP - General Physician Central Services Tech 01/04/23
[2024-10-06] MEDS: PHENAZOPYRIDINE HCL 100 MG TABLET PO (06:55)
[2024-10-06] MEDS: NITROFURANTOIN MONOHYD MACROCR 100 MG CAP PO (06:55)
[2024-10-06] MEDS: metroNIDAZOLE 500 MG TABLET PO (06:55)
== END 2024-10-06 07:18 | disposition home or self-care (01) ==
PROVIDERS: Emergency Provider Student in an Organized Health Care Education/Training Program; PCP Physician Assistant
DX: N39.0 Urinary tract infection, site not specified (principal); A59.9 Trichomoniasis, unspecified; Z87.891 Personal history of nicotine dependence
CPT/HCPCS: 81001; 81025; 87086; 87491; 87591; 87661; 99283; A9270

== ENCOUNTER 2024-12-04 20:36 | Emergency (ER) | payer OTHER, SELFPAY ==
[2024-12-04 20:37] VITALS: BP 132/78; PULSE 67; RESP 15; TEMP 35.8; O2SAT 99
--- OUTSIDE RECORDS SUMMARY | 2024-12-04 20:38 | XMS_ITS | Referral Summary ---
Author Organization [facility] Address [address] [place] [address] Care Team Providers Care Rotary Driller Name Role Phone Alicia Rodriguez Primary Care Provider + Allergies Active Allergy Reactions Criticality Noted Date Comments Sulfa (Sulfonamide Antibiotics) Rash Medium Medications chlorhexidine (PERIDEX) 0.12 % solution Apply to the mouth or throat 2 (two) times a day Active doxycycline (VIBRAMYCIN) 100 mg capsuleIndicatio ns:Hidradenitis Suppurativa Take 1 tablet/caps ule (100 mg total) by mouth 2 (two) times a day Take with a full meal and a glass of water. 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 If positive or greyzone, a second separately collected sample should be submitted for Hepatitis C Virus RNA. Detection and Quantitation by Real-Time Reverse Sales Analyst-PCR.Current Interpretive data was last revised on 2016. Blood specimen (specimen) 12/03/2017 12:35 PM CDT 12/03/2017 2:02 PM CDT Narrative [facility] - 12/04/2017 9:34 AM CDT us Klarissa Regan NP LAB MICROBIOLOGY - GENERAL ORDERABLES Edited Result - Final [facility] One [facility] Department of Laboratories [place], [place] [id number] from Last 3 Months or Most Recently Relevant to Health Maintenance Insurance AETNA [facility] [place] Advance Directives For more information, please contact: [phone] * Full Code (Latest Code Status on [...] n case of cardiopulmonary arrest Care Teams Rotary Driller Relationship Specialty Start Date End Date Alicia Rodriguez PA PCP - General Physician Memorial Designer 01/04/23
--- OUTSIDE RECORDS SUMMARY | 2024-12-04 20:38 | XMS_ITS | Clinical Summary ---
Author Organization [facility] Address [address] [place] [address] Care Team Providers Care Regulatory Affairs Strategy Specialist Name Role Phone Alicia Rodriguez Primary Care [...] expected growth. Per verbal consult with Dr. Escboar, most likely a biological variant. 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 If positive or greyzone, a second separately collected sample should be submitted for Hepatitis C Virus RNA. Detection and Quantitation by Real-Time Reverse Acreage Reporter-PCR.Current Interpretive data was last revised on 2016. Blood specimen (specimen) 12/03/2017 12:35 PM CDT 12/03/2017 2:02 PM CDT Narrative [facility] - 12/04/2017 9:34 AM CDT us Klarissa Regan NP LAB MICROBIOLOGY - GENERAL ORDERABLES Edited Result - Final [facility] One [facility] Department [place] [address] from Last 3 Months or Most Recently Relevant to Health Maintenance [place] [facility] [place] Advance Directives For more information, please contact: [phone] * Full Code (Latest Code Status on [...] n case of cardiopulmonary arrest Care Teams Regulatory Affairs Strategy Specialist Relationship Specialty Start Date End Date Alicia Rodriguez PA PCP - General Physician Bricklayer Helper 01/04/23
--- OUTSIDE RECORDS SUMMARY | 2024-12-04 20:38 | XMS_ITS | Data Portability ---
Author Organization [facility] Address [address] [place] [address] Care Team Providers Care Dental Cream Maker Name Role Phone YARA GALLEGOS Primary Care Provider Assessment No assessment recorded. Plan of Treatment Reminders Order Date Submit Date Provider Last Modified By Organization Details Last Modified Time Details Appointments None recorded. Lab pap, IG + reflex HPV 2024 025 CORN[facility], [address], [address], [place], [address], 5 11:34:54 urinalysi s, dipstick 2024 025 CORNEL In-Office Order, Internal Use Only DO Not Attach Compendium DO Not Attach Compendium, Do Not Delete/merge, [id number] 5 14:46:41 test, urine 2024 025 CORNEL In-Office Order, Internal Use Only DO Not Attach Compendium DO Not Attach Compendium, Do Not Delete/merge, [id number] 5 14:46:52 vaginal pathogens panel, SHADY+probe , vaginal fluid 2024 025 CORNEL [facility], [address], [address], [place], [address], 5 07:07:49 PPD (purified protein derivativ e), skin test 2023 024 CORNEL In-Office Order, Internal Use Only DO Not Attach Compendium DO Not Attach Compendium, Do Not Delete/merge, [id number] 4 18:05:23 culture, urine 2023 024 [place] [facility], [address], [address], [place], [address], 4 03:37:16 vaginal pathogens panel, SHADY+probe , vaginal fluid 2023 024 brea [facility], [address], [address], [place], [address], 4 15:25:48 Referral dermatolo gist referral - anogenita l hidradeni tis 2023 024 [email or web address] Sania Newberry MD (Dermatology) , [address] , [facility], [place], [address], 4 10:43:39 Procedures None recorded. Surgeries None recorded. Imaging None recorded. Medication Orders Tubersol 5 tub. unit/0.1 mL intraderm al injection solution 2023 [email or web address] Not available 17:35:07 doxycycli ne monohydra te 100 mg tablet 2023 024 [place] [id number], [address] [place], [address], 4 12:10:26 Patient TargetsNo targets recorded. Patient Instructions Encounter Date Encounter Id Patient Instructions Last Modified By Organization Details Last Modified Time 04/28/2024 [id number] A healthy lifestyle: care instructions Not available 04/28/2024 17:20:37 tuberculin skin test: care instructions Not available 04/28/2024 17:20:37 07/17/2024 [id number] A healthy lifestyle: care instructions [email or web address] Not available 07/17/2024 14:43:54 Reason for Referral Recruiting And Selection Consultant Referral for A nogenital hidradenitis suppurativa anogenital hidradenitis Referring Physician: Yara Gallegos, Diamond Assorter, Encounter Date: 08/06/2023 Results Created Date Observation Date Name Description Value Unit Range Abnormal Flag Note LastModifiedBy Organization Detail LastModifiedTime 08/23/19 24 08/25/2023 URINE CULTU RE, ROUTI NE urine culture, routine Final report Not Available [facility] ([facility]) [address], [place], [address], 08/25/2023 03:37:16 08/23/19 24 08/25/2023 URINE CULTU RE, ROUTI NE result 1 No growth Not Available [facility] ([facility]) [address], [place], [address], 08/25/2023 03:37:16 04/30/20 24 04/30/2024 PPD (jace fied prote in deriv ative ), skin test Result Negati ve Not Available In-Office Order Internal Use Only DO Not Attach Compendium DO Not Attach Compendium, Do Not Delete/merge, [id number] 04/28/2024 17:19:55 07/17/1907/20/2024 NUSWA B VAGIN ITIS PLUS (VG+) atopobium vaginae HIGH - 2 score abnormal Not Available [facility] ([facility]) [address], [place], [address], 07/21/2024 07:07:49 07/17/19 25 07/20/2024 NUSWA B VAGIN ITIS PLUS (VG+) bvab 2 HIGH - 2 score abnormal Not Available [facility] ([facility]) [address] [place], [address], 07/21/2024 07:07:49 07/17/19 25 07/20/2024 NUSWA B [...] prese nce of BV. Not Available [facility] ([facility]) [address], [place], [address], 07/21/2024 07:07:49 07/17/19 25 07/20/2024 NUSWA B VAGIN ITIS PLUS (VG+) rabia albicans, SHADY NEGATI VE negati ve Not Available [facility] ([facility]) [address], [place], [address], 07/21/2024 07:07:49 07/17/19 25 07/20/2024 NUSWA B VAGIN ITIS PLUS (VG+) rabia glabrata, SHADY NEGATI VE negati ve Not Available [facility] ([facility]) [address], [place], [address], 07/21/2024 07:07:49 07/17/19 25 07/21/2024 NUSWA B VAGIN ITIS PLUS (VG+) trich vag by SHADY POSITI VE negati ve abnormal Not Available [facility] ([facility]) [address] [place], [address], 07/21/2024 07:07:49 07/17/19 25 07/21/2024 NUSWA B VAGIN ITIS PLUS (VG+) chlamydia trachomatis, SHADY NEGATI VE negati ve Not Available [facility] ([facility]) [address] [place], [address], 07/21/2024 07:07:49 07/17/19 25 07/21/2024 NUSWA B VAGIN ITIS PLUS (VG+) neisseria gonorrhoeae, SHADY NEGATI VE negati ve Not Available [facility] ([facility]) [address], [place], [address], 07/21/2024 07:07:49 07/17/19 25 07/18/2024 IGP,A PTIMA HPV,A GE GDLN age gdln acog testing 30-65 Not Available [facility] ([facility]) [address], [place], [address], 07/22/2024 11:34:54 07/17/19 25 07/22/2024 IGP, APTIM A HPV, RFX 16/18 ,45 diagnosis: CHARLOTTE MARTIN FOR INTRA EPITH ELIAL LESIO N OR NOVA JAIME . TRICH OMONA S VAGIN APURVA IS PRESE NT. CELLU CHELSY THOMPSON ES ASSOC IATED WITH INFLA MMATI ON ARE PRESE NT. Not Available [facility] [address], [place], [address], 07/22/2024 11:34:55 07/17/19 25 07/22/2024 IGP, APTIM A HPV, RFX 16/18 ,45 specimen adequacy: CHARLOTTE Galindo Satis facto ry for evalu ation . Endoc ervic al and/o r squam ous metap lasti c cells (endo cervi john compo nent) are prese nt. Not Available [facility] [address], [place], [address], 07/22/2024 11:34:55 07/17/19 25 07/22/2024 IGP, APTIM A HPV, RFX 16/18 ,45 clinician provided ICD10: CHARLOTTE Galindo Z01.4 19 Not Available [facility] [address], [place], [address], 07/22/2024 11:34:55 07/17/19 25 07/22/2024 IGP, APTIM A HPV, RFX 16/18 ,45 performed by: CHARLOTTE Thrasher er, Cytot vickie bingham t (ASCP ) Not Available [facility], [place], [address], 07/22/2024 11:34:55 07/17/19 25 07/22/2024 IGP, APTIM A HPV, RFX 16/18 ,45 . . Not Available [facility] [address] [place] [address] [address], [place], [address], 07/22/2024 11:34:55 07/17/19 25 07/22/2024 IGP, APTIM [...] repor ts do occur . Not Available [facility], [place], [address], 07/22/2024 11:34:55 07/17/19 25 07/22/2024 IGP, APTIM A HPV, RFX 16/18 ,45 test methodology: - The Thin Prep( R) Image r was unabl e to read this speci men. There fore a manua l revie w was perfo rmed. Not Available [facility], [place], [address], 07/22/2024 11:34:55 07/17/19 25 07/22/2024 IGP, APTIM A HPV, RFX 16/18 ,45 HPV aptima NEGATI VE negati ve This nucle ic acid ampli ficat ion test detec ts fourt een high- risk HPV types (16,1 8,31, 33,35 ,39,4 5,51, 52,56 ,58,5 9,66, 68) witho ut diffe renti ation . Not Available [facility] [address], [place], [address], 07/22/2024 11:34:55 07/17/19 25 07/22/2024 IGP, APTIM A HPV, RFX 16/18 ,45 HPV genotype reflex COMMEN T Crite abiel not met, HPV Genot ype not perfo rmed. Not Available [facility] [address], [place], [address], 07/22/2024 11:34:55 07/17/19 25 07/17/2024 urina lysis [...] 07/17/2024 urina lysis , dipst ick Specific [place] 1.020 Not Available In-Off ice Order Internal [...] DO Not Attach Compendium, Do Not Delete/merge, [id number] 07/17/2024 14:35:40 07/17/1907/17/2024 pap, IG + CT/NG [...] if not suppl ied. Not Available [facility] ([facility]) [address] [place], [address], 07/20/2024 02:06:17 07/18/1907/20/2024 URINE CULTU RE, ROUTI NE urine culture, routine FINAL REPORT Not Available [facility] ([facility]) [address] [place], [address], 07/20/2024 02:06:19 07/18/1907/20/2024 URINE CULTU RE, ROUTI NE result 1 NO GROWTH Not Available [facility] ([facility]) [address] [place], [address], 07/20/2024 02:06:19 Result Notes None recorded. Problems Name Problem SNOMED Code Status Onset Date Resolution Date Notes Provider Name and Address Organization Details Recorded Time Anogenital hidradenitis suppurativa 055437204 Active 2023 MATTY ASENCIO Attn: Daryl g,[address] [facility], [place], [address], [facility] 12:10:00 Problem Notes None recorded. Procedures Surgical History Date Name Laterality Status Provider Name and Address Organization Details Recorded Time 07/16/2018 Date of Last Pap Smear completed Emilie Pollack [place] [facility] 10/06/2021 12:29:10 Imaging Results None recorded. Procedure Notes None recorded. Medical Equipment None Reported. Allergies Allergen ID Allergen Name Allergen Category Reaction Reaction Severity Criticality Documentation Date Start Date Code Code System Note Provider Name and Address Organization Details Recorded Time 960485 Substance with sulfonami de structure and antibacte rial mechanism of action (substanc e) medicatio n Not available Not available Not available 02/16/2022 84223 8003 SNOMED JOHANNA [place], [place] - [facility] 12:23:35 Medications Name Sig [...] Updated DateTime 4 165.1 cm 33.6 kg/m2 65853.6 6 g 99 % 99 % 76 /min 16 /min 97.7 [degF] 110 mm[Hg] 60 mm[Hg] Kimberley Rivera MA [facility] 4 17:00:37 Date Recorded Body height Body mass index (BMI) Body weight Heart rate Respiratory rate Oxygen saturation Oxygen saturation in Arterial blood by Pulse oximetry Systolic blood pressure Diastolic blood pressure Provider Name and Address Organization Details Last Updated DateTime 5 165.1 cm 34.4 kg/m2 67230.6 2 g 89 /min 16 /min 97 % 97 % 128 mm[Hg] 84 mm[Hg] Tiff Moody MA [facility] 5 14:04:46 Social History Question Answer Notes LastModified by Organizat ion Details LastModified Time Tobacco Smoking Status Former Smoker Marijuana, light smoker Nishant Tiwari MA null, [facility] 11/30/2021 14:58:30 Do You Have An Advance Directive? No Information not available 07/26/2021 Are You Blind Or Do You Have [...] No Information not available 07/26/2021 Are You Deaf Or Do You Have Serious Difficulty Hearing? No Information not available 07/26/2021 What Type Of Diet Are You Following? REGULAR Information not available 10/07/2019 Are There Any Guns Present In Your [...] Do You Have A Medical Power Of Paint Tinter? No Information not available 12/06/2021 What Was [...] Smoke? Yes Information no t available 10/07/2019 How Much Tobacco Do You Smoke? 1 PPW [email or web address] Information not available 12/30/2019 Do You Use Sunscreen Routinely? No Information not available 07/26/2021 Has Tobacco Cessation Counseling Been Provided? Yes Information not available 07/17/2024 On What Date Was Tobacco Cessation Counseling Provided? 07/17/2024 [email or web address] Information not available 07/17/2024 How Many Years Have You Smoked Tobacco? 1 Information not available 02/23/2022 Sex: Female Functional Status Question Answer Note LastModified by Organizat ion Details LastModified Time Do you use any illicit or recreational drugs? Yes Information not available 07/26/2021 Do you or have you ever used any other forms of tobacco or nicotine? No Information not available 07/26/2021 What is your level of alcohol consumption? None Information not available 10/07/2019 Do you or have you ever used smokeless tobacco? Never used smokeless tobacco Information not available 10/07/2019 Are you currently employed? No Information not available 10/07/2019 Are you able to care for yourself? 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 Never used electronic cigarettes Information not available 10/07/2019 What is your exercise level? Occasional Information not available 10/07/2019 Mental Status Question Answer Note LastModified by Organization D etails LastModified Time Do you feel stressed (tense, restless, nervous, or anxious, or unable to sleep at night)? [id number] Information not available 07/26/2021 Family History Relationship Description Onset Age of [...] Skin Problems N Anemia N Heart Attack (AK) N Diabetes N Anxiety Disorder N Muscle, [...] PF, 30 mcg/0.3 mL dose 12/19/2021 completed JOHNANA [place] [facility] 05/26/2024 17:15:24 COVID-19, mRNA, LNP-S, PF, 30 mcg/0.3 mL dose 01/10/2022 completed [place]NA [place] [facility] 05/26/2024 17:15:24 Past Encounters Encounter ID Performer Location Encounter Start Date Encounter Closed Date Diagnosis/Indication Diagnosis SNOMED-CT Code Diagnosis ICD10 Code Diagnosis Note [id number] MATTY ASENCIO [facility] [address] [place] [address] 10/07/2019 14:28:04 10/08/2019 11:53:37 Candidiasis of vagina 90832878 B37.3 patient gets Yeast infection while on abx. She is on day 7/10 of amoxicilli n for uti and ear infection. c/o thick white discharge and itch. denies fever, chills, dysuria, increased frequency. does nto want std testing today. On exam no flank pain, suprapubic pain. ear infection has resolved. - take diflucan tablet once- f/u if not improving [id number] MATTY ASENCIO [facility] [address] [place] [address] 12/30/2019 13:45:55 01/06/2020 06:26:14 Increased frequency of urination 972154819 R35.0 patient continues to have UTI symptoms. Will check labs before treating as she has already been treated twice for UTI. Abnormal u terine bleeding [id number] 9100 N93.9 Patient states she has vaginal blood. She has been recently diagnosed with STI and treated in ER. We will retest incase she is resistant to the antibiotic s. Advised to have pap smear done. [id number] MATTY ASENCIO [facility] [address] [place] [address] 04/12/2020 12:04:26 04/13/2020 11:04:27 Increased frequency of urination 798199443 R35.0 Increased frequency of urination. - UA +- macrobid- Culture- hydrate Abnormal u terine bleeding 2832618418 9100 N93.9 patient having discharge, recently treated for trichomona s. Will recehck lab to be sure it was effectivel y treated. [id number] Jose Tijerina MD [facility] [address] [place] [address] 06/25/2020 15:28:39 06/29/2020 08:10:52 Urinary tract infectious disease 72623217 N39.0 by history, are frequent [id number] MATTY ASENCIO [facility] [address] [place] [address] 10/07/2020 07:57:39 10/09/2020 08:31:25 Bacterial vaginosis 555496658 N76.0 patietn with fishy smell and white discharge x 2 weeks. denies fever, chills, abdominal pain, pelvic pain, disuria, blood in urine - negative UA in office - will treat for BV - f/u if symptoms do not or improve or worsen [id number] MATTY ASENCIO [facility] [address] [place] [address] 11/18/2020 15:01:32 11/22/2020 18:13:49 Onychomycosis of toenails 541567313 B35.1 BL first toe fungus and 4th toe on left foot. no sign of infection. nails are thickened and slightly raised. Adult heal th examination 928857349 Z00.00 Patient presents for well exam. C/O [...] soda - encouraged more veggies and fruits [id number] Bertrandjulieta Mccrary [facility] [address] [place] [address] 12/14/2020 14:55:47 12/14/2020 16:04:39 Onychomycosis 323368863 B35.1 [id number] [facility] [address] [place] [address] 01/27/2021 14:44:57 01/28/2021 09:42:31 Onychomycosis 709209586 B35.1 [id number] MATTY ASENCIO [facility] [address] [place] [address] 05/04/2021 11:14:33 05/05/2021 09:09:58 Infection of tooth 721748698 K04.7 - f/u surgeon- f/u la natalie for cleaning- brush teeth- take abx as prescribed [id number] Shabbir rivera MD [facility] [address] [place] [address] 07/26/2021 08:44:28 07/27/2021 08:02:18 Candidiasis of vagina 56317816 B37.3 thick, white vaginal discharge, odor, and irritation x1 motrial fluconazol eadvised pt to f/u in office if sx don't improve to check for STDs, BV Depression screening 171 675044 Z13.31 PHQ 0 [id number] MATTY ASENCIO [facility] [address] [place] [address] 10/06/2021 12:21:47 10/07/2021 09:46:19 Perianal abscess 62773371 K61.0 large 3 o'clock perianal abscess (approx 2x2.5 inches), recurring, multiple small abscess at 7-8 o'clock. Had them drained in ER once at [place] and once at [place]. - denies medication to allergy- large abscess without a head, worry for rectal involvemen t.- multiple small hcanelle-anal ones draining and smaller- surgery referral sent- ER if pain worsens or cannot get in quicker [id number] MATTY ASENCIO [facility] [address] [place] [address] 11/30/2021 14:32:32 12/01/2021 11:22:08 Perianal abscess 67680668 K61.0 large 3 o'clock perianal abscess (approx 2x2.5 inches), recurring, multiple small abscess at 7-8 o'clock. Had them drained in ER once at [place] and once at [place]. did not go to [facility] on 10/11/21 but states she will go now. She knows an MA there and did not want her to know this about her. - denies medication to allergy- large abscess without a head, worry for rectal involvemen t.- multiple small chanelle-anal ones draining and smaller- surgery referral sent- ER if pain worsens or cannot get in quicker [id number] Siva Paulino MD [facility] [address] [address] 12/06/2021 14:35:59 12/08/2021 12:18:48 Perianal fistula 32243434 K60.3 patient with fistula in ano, likely [...] OR as soon as is convenient . [id number] Shabbir rivera MD [facility] [address] [place] [address] 02/16/2022 12:15:17 02/17/2022 08:42:24 Vaginal discharge 844474585 N89.8 x3 wkswhite, thick discharge, constantl y wet sexual ly active 3 months agono UA sxnot related to menstrual cycle, LMP 01/27/22nu swab vg + hsv Acne 37006044 L70.9 c/o acne to bilateral cheeks for yrs using a variety of face washes w/o improvemen tPEx- open comedones and papules to bilateral cheekstria l differin gel and cetaphil face wash OTC Depression screening 171 350964 Z13.31 PHQ 0 [id number] Siva Paulino MD [facility] [address] [place] [address] 02/23/2022 16:13:59 02/24/2022 09:44:48 Anogenital hidradenitis suppurativa 447620544 L73.2 patient doing well s/p I&D and debridemen t of anal abscess. However she has developed an additional abscess in the anal area as well as 2 small ones in her mons area. This raises the possiblity of hidradenit is of the anogential area. Will start 12 week course of minocyclin e and refer to dermatolog y. [id number] MATTY ASENCIO [facility] [address] [place] [address] 06/07/2022 11:13:36 06/12/2022 16:11:41 Anogenital hidradenitis suppurativa 963732191 L73.2 patient who underwent I&D and debridemen t of anal abscess. However she has developed an additional abscess in the anal area Likely hidradenit is of the anogenital area. 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 Will re-send her abx.- ER if worsens, refuses- SHE Called surgeon office one month ago, has not heard back. encouraged calling again. Overweight 145645920 E66 .3 [id number] Shabbir rivera MD [facility] [address] [place] [address] 08/08/2022 14:57:25 08/10/2022 10:06:17 Vaginal irritation 303579896 N89.8 trial diflucan for vaginal itchingche ck nu swab Venereal d isease screening 932428612 Z11.3 STD screen Overweight 394489844 E66 .3 [id number] MATTY ASENCIO [facility] [address] [place] [address] 01/04/2023 14:00:45 01/04/2023 14:30:16 Anogenital hidradenitis suppurativa 148638700 L73.2 needs to contact ER Overweight 934288986 E66 .3 Sebaceous cyst of skin 762309640 L72.3 draining large cyst wit R eyelid involvemen tadvised ER to drainage and due to size and vision disturbanc ewill need derm [id number] MATTY ASENCIO [facility] [address] [place] [address] 03/14/2023 11:01:47 03/14/2023 11:18:26 [id number] MATTY ASENCIO [facility] [address] [facility] [place] [place] [address] 08/06/2023 10:22:12 08/07/2023 11:40:59 Anogenital hidradenitis suppurativa 464984396 L73.2 patient doing well s/p I&D and debridemen t of anal abscess 12/2021. However she has developed an additional abscess. This raises the possibilit y of hidradenit is of the anogential area. Will start 12 week course of doxycyclin e and refer to dermatolog y. Vaginal discharge 295017 006 N89.8 c/o of liquid white discharge that comes out after urinating. denies dysuria, pain, blood, chills, fever, pruritis, rash - nuswab in office [id number] MATTY ASENCIO [facility] [address] [place] [address] 08/23/2023 10:29:58 08/23/2023 15:49:44 Dysuria 09352885 R30.0 [id number] FAISAL VITALE MD [facility] [address] [place] [address] 04/28/2024 16:38:13 04/29/2024 10:06:03 Obesity 221336139 E66.9 Tuberculos is screening 620980958 Z11.1 Return to clinic in 48-72 hours for test reading. [id number] Meir Noble MD [facility] [address] [place] [address] 07/17/2024 14:00:22 07/17/2024 14:49:26 Gynecologic examination 17991468 Z01.419 Pap obtainedCB E performedB reast education providedr/ o since no period since November- does have spottingab ortion 03/26/24 at 16 weeks Anogenital hidradenitis suppurativa 151452966 L73.2 patient doing well s/p I&D and debridemen t of anal abscess 12/2021. She is on terminal clerk doxy and does not wish to be on it. - recommend bleach baths 1-2x per week. dilute 1/8 cup in a tub full of water and soak- apply hibiclens- glycolic acid may also help on external boils Obesity 748118866 E66.9 Health Concerns Section Related Observation LastModified [...] 2020 (MEDICAID REPLACEMENT - HMO) Martina Chatterjee [id number] Martina Chatterjee 08/06/2023 1 [employer] [place] ON [place] AFTER 2020 (MEDICAID REPLACEMENT - HMO) Martina Chatterjee [id number] Martina Chatterjee 08/23/2023 1 [employer] [place] AFTER 2020 (MEDICAID REPLACEMENT - HMO) Martina Chatterjee [id number] Martina Chatterjee 04/28/2024 1 [employer]TER [employer] OF [place] ON OR AFTER 06/15/2020 (MEDICAID REPLACEMENT - HMO) Martina Chatterjee [id number] Martina Chatterjee 07/17/2024 1 [employer] [place] ON OR AFTER 06/15/2020 (MEDICAID REPLACEMENT - HMO) Martina Chatterjee [id number] Martina Chatterjee Notes Date Note Type Note [...] pruritis, rash MATTY ASENCIO Attn: [address]ing[address] [place], [address], [facility] 08/06/2023 12:13:55 04/28/2024 text/html 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 No recent fevers, cough, congestion. No SOB or chest pain. No n/v/d. No sick contacts. No exposure to tb. BRITTNEE OCHOA NP Attn: [address] [place], [address], [facility] 04/28/2024 17:20:58 07/17/2024 text/html Martina is here for papPatient had at 4 months on 03/26/24. no complications. She has had spotting since that time. She has anoGU hydradenitis and on terminal clerk doxycycline. She does not want to take it any more. LMP: [id number] Pap: 2019?Contraception :STI hx:Fam hx: breast, cervical, uterine, ovarian cancers MATTY ASENCIO Attn: [address] [place], [address], [facility] 07/17/2024 14:45:27 OBGyn Episode No OBEpisode recorded.
--- NOTE | 2024-12-04 21:02 | ED_ITS ---
HPI - Dental/Oral General Chief complaint: Dental/Oral Stated complaint: right upper toothache Time Seen by Provider: 12/04/24 20:46 Source: patient and other Mode of arrival: ambulatory Limitations: no limitations History of Present Illness HPI Narrative: Patient presents with right upper toothache. She is due to have an extraction of this tooth next week and has been taking for and mg ibuprofen approximately e very 3 hours which helps with a throbbing pain but she continues to be in pain. She is currently on antibiotic regimen. Denies any fevers or chills. Denies any ear pain although she does state that she does have some right facial pain with this. She endorsees odynophasia but no dysphagia appear Related Data Allergies Allergy/AdvReac Type Severity Reaction Status Date / Time Sulfa (Sulfonamide Allergy Intermediate Itching Verified 12/04/24 20:37 Antibiotics) PMFSH Past Medical History Medical History Trichomoniasis Dentalgia UTI (urinary tract infection) Pilonidal abscess Abscess of labia Surgical History Surgical History History of incision and drainage Complex i&d left perirectal abscess 06/13/21 Family History Family History Other Diabetes mellitus Hypertension Social History Social History Smoking status: Former smoker Tobacco type: cigarettes Alcohol intake: current Substance use: current Substance use type: marijuana Living arrangements: with family Occupation/Education: occupation Gender identity (if verbalized by the patient): Female Spiritual care concerns: No Exam Narrative: GENERAL: Well-appearing, well-nourished, and in no acute distress. HEAD: Normocephalic, atraumatic. No significant facial swelling. Mild tenderness to percussion of face but no erythema or induration. EYES: Non injected, non icteric ENT: Nares clear, no rhinorrhea or epistaxis. Gross auditory acuity intact. Tenderness to percussion of tooth 3. Teeth 4. And 5 are missing. Bilateral tympanic membranes easily visualized without erythema, effusion, bulging. Buccal mucosa soft moist without induration. No appreciable abscess including no apical abscess. There does appear to be a fracture of the affected tooth. Slight tenderness to percussion of anterior right gums. NECK: Supple. No meningismus. No anterior cervical lymphadenopathy. CHEST: Speaking in full sentences. No respiratory distress. HEART: Regular rate and rhythm. . ABDOMEN: Soft, nondistended. No rigidity or guarding. Not peritoneal EXTREMITIES: Normal range of motion. No lower extremity edema. SKIN: Warm, dry, no rash. NEURO: No focal deficits. Alert and oriented. Answering questions. Following commands. Speaks clearly, Normal speech without aphasia or dysarthria. PSYCH: Normal mood and affect. Course Vital Signs Vital signs: Vital Signs Temperature 96.5 F L 12/04/24 20:37 Pulse Rate 67 12/04/24 20:37 Respiratory Rate 15 12/04/24 20:37 Blood Pressure 132/78 12/04/24 20:37 Pulse Oximetry 99 12/04/24 20:37 Oxygen Delivery Room Air 12/04/24 20:37 Temperature 96.5 F L 12/04/24 20:37 Pulse Rate 67 12/04/24 20:37 Respiratory Rate 15 12/04/24 20:37 Blood Pressure 132/78 12/04/24 20:37 Pulse Oximetry 99 12/04/24 20:37 Oxygen Delivery Room Air 12/04/24 20:37 MDM - Dental/Oral MDM Narrative Medical decision making narrative: Patient presents with right upper toothache. She is due for extraction of this tooth next week but notes that the ibuprofen she has been taking at home is not sufficient for the pain. Currently on antibiotics. In the emergency department they are afebrile with vital signs within normal limits. Patient given a dose of [place] after confirming that she has transportation available from the person in the room with her. Dental block offered but patient declines. Discussed appropriate/therapeutic dosing of [id number] medications which are prescribed but also will give short course opiate medications for breakthrough therapy. Discussed risks benefits and alternatives and patient verifies understanding of safe use as well as safe disposal. Stable for discharge and given return precautions. Differential Diagnosis Differential diagnosis: Likely gingival abscess, dental caries, toothache, dental abscess and fracture of tooth Discharge Plan Discharge Clinical Impression: Pain, dental Patient Disposition: Home Condition: Stable Instructions: Antibiotic Form, Narcotic Safety (ED), Toothache (ED) Additional Instructions: Acetaminophen/Tylenol (maximum 4000 mg per day) is safe to take with NSAIDs (ibuprofen/Motrin) for pain relief. You will not overdose if you take them as prescribed. Continue taking the antibiotics and keep your upcoming appointment for extraction of the tooth. For breakthrough pain, you can use the opiate medication prescribed. Return to the emergency department with any new, worsening, unmanaged symptoms. Patient Language: Estonian Prescriptions: New ibuprofen 600 mg tablet 600 mg PO TID PRN (Reason: pain) Qty: 30 0RF acetaminophen 500 mg capsule 1,000 mg PO Q6H PRN (Reason: pain) Qty: 30 0RF oxycodone 5 mg tablet 5 mg PO Q8H PRN (Reason: pain) 5 Days Qty: 14 0RF No Action cephalexin 500 mg capsule 500 mg PO Q8H 7 Days Qty: 21 0RF nitrofurantoin monohyd/m-cryst 100 mg capsule 100 mg PO Q12H 5 Days Qty: 10 0RF Rx Instructions: must administer with a meal/food clindamycin HCl 150 mg capsule 450 mg PO Q8H 7 Days Qty: 63 0RF hydrocodone-acetaminophen 5-325 mg tablet 1 tablet PO Q6H PRN (Reason: pain) Qty: 5 0RF fluconazole 150 mg tablet 150 mg PO ONCE PRN (Reason: vaginal irritation) Qty: 1 0RF Rx Instructions: as a single dose metronidazole 500 mg tablet 500 mg PO BID 7 Days Qty: 13 0RF Rx Instructions: start 10/06/24 PM; received first dose in ED in AM phenazopyridine 100 mg tablet 100 mg PO TID PRN (Reason: pain) Qty: 5 0RF Rx Instructions: received first dose in ED 10/06/24 AM; start PM nitrofurantoin monohyd/m-cryst [Macrobid] 100 mg capsule 100 mg PO Q12H 3 Days Qty: 6 0RF Rx Instructions: must administer with a meal/food Follow-up/Referrals: Michael,MATTY Odom [Primary Care Provider] - Stand Alone Forms: Work/School Release IP Time of Disposition: 21:27
--- OUTSIDE RECORDS SUMMARY | 2024-12-04 21:15 | XMS_ITS | Referral Summary ---
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 Comment: Interpretive Data Positive and greyzone results should be confirmed by a molecular method. If positive or greyzone, a second separately collected sample should be submitted for Hepatitis C Virus RNA. Detection and Quantitation by Real-Time Reverse Examination Grader-PCR.Current Interpretive data was last revised on 2016. Blood specimen (specimen) 12/03/2017 12:35 PM CDT 12/03/2017 2:02 PM CDT [address]ative [facility] - 12/04/2017 9:34 AM CDT us Klarissa Regan NP LAB MICROBIOLOGY - GENERAL ORDERABLES Edited Result - Final [facility] Department of Laboratories [place], [place] [id number] from Last 3 Months or Most Recently Relevant to Health Maintenance Insurance [employer] [facility] [place] Advance Directives For more information, please contact: [phone] * Full Code (Latest Code Status on [...] n case of cardiopulmonary arrest Care Teams Stove Bottom Worker Relationship Specialty Start Date End Date Alicia Rodriguez PA PCP - General Physician Combination Building Inspector 01/04/23
--- OUTSIDE RECORDS SUMMARY | 2024-12-04 21:15 | XMS_ITS | Clinical Summary ---
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 If positive or greyzone, a second separately collected sample should be submitted for Hepatitis C Virus RNA. Detection and Quantitation by Real-Time Reverse Hydroelectric Plant Technician-PCR.Current Interpretive data was last revised on 2016. Blood specimen (specimen) 12/03/2017 12:35 PM CDT 12/03/2017 2:02 PM CDT Narrative [facility] - 12/04/2017 9:34 AM CDT us Klarissa Regan NP LAB MICROBIOLOGY - GENERAL ORDERABLES Edited Result - Final [facility] Department [place] [address] from Last 3 Months or Most Recently Relevant to Health Maintenance [place] AET[place] [facility]TER [facility] [place] Advance Directives For more information, please contact: [phone] * Full Code (Latest Code Status on [...] n case of cardiopulmonary arrest Care Teams Hvac Specialist Relationship Specialty Start Date End Date Alicia Rodriguez PA PCP - General Physician Shipyard Supervisor 01/04/23
[2024-12-04] MEDS: HYDROcodone/acetaminophen (*CRX) 5-325 MG TABLET 1 TAB PO (21:26)
== END 2024-12-04 21:33 | disposition home or self-care (01) ==
PROVIDERS: Emergency Provider Student in an Organized Health Care Education/Training Program; PCP Physician Assistant
DX: K08.89 Other specified disorders of teeth and supporting structures (principal); Z87.440 Personal history of urinary (tract) infections; Z87.891 Personal history of nicotine dependence
CPT/HCPCS: 99283; A9270

== ENCOUNTER 2024-12-11 18:48 | Emergency (ER) | payer OTHER, SELFPAY ==
[2024-12-11 18:56] VITALS: BP 139/78; PULSE 80; RESP 16; TEMP 36.4; O2SAT 100
--- NOTE | 2024-12-11 19:04 | ED_ITS ---
HPI - Dental/Oral General Chief complaint: Dental/Oral Stated complaint: Dental Pain Source: patient Mode of arrival: ambulatory Limitations: no limitations History of Present Illness HPI Narrative: Patient is a 34 year old female who presents to the clinic for complaints of dental pain to her right molar. Patient states she was seen in the ER on the and was given doxycycline and oxycodone. She left work today due to the pain. Patient is at [facility] requesting a note to excuse her from work for a couple of days until she can get her pain under control. She states that she is actively trying to get into to see her dentist. Related Data Home Medications ?Medication ?Instructions ?Recorded ?Confirmed ?Last Taken ?Type doxycycline hyclate 100 mg capsule mg 12/11/24 12/11/24 History Allergies Allergy/AdvReac Type Severity Reaction Status Date / Time Sulfa (Sulfonamide Allergy Intermediate Itching Verified 12/04/24 20:37 Antibiotics) Review of Systems Review of Systems: CONSTITUTIONAL: Denies body aches, fever, chills, or sweats. EYES: Denies visual changes, redness, or discharge. ENT: Denies rhinorrhea, congestion, sore throat, or otalgia. Reports dental pain. CARDIOVASCULAR: Denies chest pain, palpitations, or edema. RESPIRATORY: Denies cough or dyspnea. SKIN: Denies rash, itching, or wounds. NEUROLOGIC: Denies headache, numbness, tingling, or weakness. PSYCH: Denies depression or anxiety. All systems reviewed & are unremarkable except as noted in HPI and below PMFSH Past Medical History Medical History Trichomoniasis Dentalgia UTI (urinary tract infection) Pilonidal abscess Abscess of labia Surgical History Surgical History History of incision and drainage Complex i&d left perirectal abscess 06/13/21 Family History Family History Other Diabetes mellitus Hypertension Social History Social History Smoking status: Former smoker Tobacco type: cigarettes Alcohol intake: current Substance use: current Substance use type: marijuana Living arrangements: with family Occupation/Education: occupation Gender identity (if verbalized by the patient): Female Spiritual care concerns: No Comments At time of signature, I have reviewed and agree with nursing past medical, surgical, social and family history unless otherwise noted. Please see nursing chart for further information. There is no relevant family history pertinent to the presenting complaint. Exam Narrative: GENERAL: Well-appearing, well-nourished, and in no acute distress. HEAD: Normocephalic, atraumatic. EYES: EOMI. No redness or drainage. Conjunctivae normal. ENT: Mucous membranes pink and moist. Nares clear. No rhinorrhea. TMs normal bilaterally. Throat normal. Uvula midline. Dental pain location of #1. No dysphagia, odynophagia, dysphonia or dyspnea. The soft palate edema. NECK: Normal AROM. Supple. No lymphadenopathy. No induration below mandible, no neck pain. CHEST: No respiratory distress. Clear to auscultation. HEART: Regular rate and rhythm. No murmur appreciated. Normal peripheral pulses. MUSCULOSKELETAL: No bony tenderness. NEURO: No focal deficits. Alert and oriented x3. Gait steady. PSYCH: Normal affect. No signs of depression or anxiety. Course Course Level of Care: Express Care Visit Vital Signs Vital signs: Vital Signs Temperature 97.5 F L 12/11/24 18:56 Pulse Rate 80 12/11/24 18:56 Respiratory Rate 16 12/11/24 18:56 Blood Pressure 139/78 12/11/24 18:56 Pulse Oximetry 100 12/11/24 18:56 Oxygen Delivery Room Air 12/11/24 18:56 Temperature 97.5 F L 12/11/24 18:56 Pulse Rate 80 12/11/24 18:56 Respiratory Rate 16 12/11/24 18:56 Blood Pressure 139/78 12/11/24 18:56 Pulse Oximetry 100 12/11/24 18:56 Oxygen Delivery Room Air 12/11/24 18:56 Reviewed. MDM - Dental/Oral MDM Narrative Medical decision making narrative: Patient's pain and complaint coupled physical exam findings are consistent with dentalgia. Advised supportive measures and signs/symptoms to go to the ER. Pt is appropriate for outpatient treatment and f/u with Dentist. Differential Diagnosis Differential diagnosis: Likely gingival abscess, dental caries, toothache, dental abscess and fracture of tooth Critical Care Time Critical Care Time Critical Care Time: No Discharge Plan Discharge Clinical Impression: Pain, dental Patient Disposition: Home Condition: Stable Instructions: Toothache (ED) Additional Instructions: Continue taking antibiotic prescribed from your ER visit. May apply heat or ice to the face Gentle brushing and flossing. Rinse mouth with warm salt water at least 2 times a day. Alternate Tylenol and ibuprofen as needed for pain Follow-up with the dentist as soon as possible--see the list provided! Patient Language: Icelandic Prescriptions: No Action doxycycline hyclate 100 mg capsule acetaminophen 500 mg capsule 1,000 mg PO Q6H PRN (Reason: pain) Qty: 30 0RF oxycodone 5 mg tablet 5 mg PO Q8H PRN (Reason: pain) 5 Days Qty: 14 0RF Follow-up/Referrals: Michael,MATTY Odom [Primary Care Provider] - Stand Alone Forms: Work/School Release IP Time of Disposition: 19:06
== END 2024-12-11 19:09 | disposition home or self-care (01) ==
PROVIDERS: PCP Physician Assistant
DX: K08.89 Other specified disorders of teeth and supporting structures (principal); Z87.891 Personal history of nicotine dependence
CPT/HCPCS: 99211; G0463

== ENCOUNTER 2025-03-21 13:54 | Emergency (ER) | payer OTHER, SELFPAY ==
[2025-03-21 14:01] VITALS: BP 118/68; PULSE 68; RESP 20; TEMP 37.2; O2SAT 99
--- NOTE | 2025-03-21 14:04 | ED.SKABFB ---
HPI - Skin/Abscess/Foreign Bdy General Chief complaint: Skin/Abscess/Foreign Body Stated complaint: flare up from HS patient presents to the [facility] accompanied by significant other with complaints of several abscesses to groin area that began over the last several days. Patient does report a history of hidradenitis suppurative, patient was seeing Dermatology and on daily doxycycline. Due to side effects with this medication she does stop taking this and then usually does have a flare up of symptoms. does notice drainage from these areas. Denies fever, chills, body aches Related Data Home Medications ?Medication ?Instructions ?Recorded ?Confirmed ?Last Taken ?Type doxycycline hyclate 100 mg capsule mg 12/11/24 12/11/24 History Allergies Allergy/AdvReac Type Severity Reaction Status Date / Time Sulfa (Sulfonamide Allergy Intermediate Itching Verified 03/21/25 14:01 Antibiotics) Review of Systems Constitutional: Constitutional: Reports as per HPI, Denies chills, Denies fatigue, Denies fever(s) and Denies weakness Eyes: Eyes: Reports no additional eye complaints ENT: Reports as per HPI Cardiovascular: Cardiovascular: Reports no additional cardiovascular complaints Respiratory: Respiratory: Reports no additional respiratory complaints Gastrointestinal: Gastrointestinal: Reports no additional gastrointestinal complaints Genitourinary: Genitourinary: Reports no additional female genitourinary complaints Musculoskeletal: Musculoskeletal: Reports no additional musculoskeletal complaints Integumentary/Breasts: Skin/Breast: Reports as per HPI and Reports erythema Comments: Abscess groin area- multiple Neurologic: Reports system reviewed and no additional complaints, except as documented Psychiatric: Psychiatric: Reports no additional psychiatric complaints Endocrine: Endocrine: Reports no additional endocrine complaints Hematologic/Lymphatic: Hematologic/Lymphatic: Reports no additional hematologic/lymphatic complaints Allergic/Immunologic: Allergic/Immunologic: Reports no additional allergic/immunologic complaints [facility] Past Medical History Medical History Trichomoniasis Dentalgia UTI (urinary tract infection) Pilonidal abscess Abscess of labia Surgical History Surgical History History of incision and drainage Complex i&d left perirectal abscess 06/13/21 Family History Family History Other Diabetes mellitus Hypertension Social History Social History Smoking status: Former smoker Tobacco type: cigarettes Alcohol intake: current Substance use: current Substance use type: marijuana Living arrangements: with family Occupation/Education: occupation Gender identity (if verbalized by the patient): Female Spiritual care concerns: No Course Course Level of Care: Express Care Visit Vital Signs Vital signs: Vital Signs Temperature 98.9 F 03/21/25 14:01 Pulse Rate 68 03/21/25 14:01 Respiratory Rate 20 03/21/25 14:01 Blood Pressure 118/68 03/21/25 14:01 Pulse Oximetry 99 03/21/25 14:01 Oxygen Delivery Room Air 03/21/25 14:01 Temperature 98.9 F 03/21/25 14:01 Pulse Rate 68 03/21/25 14:01 Respiratory Rate 20 03/21/25 14:01 Blood Pressure 118/68 03/21/25 14:01 Pulse Oximetry 99 03/21/25 14:01 Oxygen Delivery Room Air 03/21/25 14:01 MDM - Skin/Abscess/Foreign Bdy MDM Narrative Medical decision making narrative: at this time unable to perform incision and drainage due to patient's significant pain and most areas are draining. Will put patient on antibiotics recommended daily preventative medication. Will refill patient's doxycycline The patient was evaluated by myself in the express care. History is obtained from patient who is an independent historian and physical exam was performed. Available medical records were reviewed at this time. Exam findings show no acute concerns or changes; patient is non-toxic appearing and is in no distress. Patient is appropriate for outpatient treatment and follow-up. I have evaluated and discussed social determinants of health with the patient that could potentially impact subsequent diagnosis and treatment plans. Differential diagnosis and treatment plan were discussed with the patient. Patient agrees with discussion and after shared medical decision making agrees with plan of care. All questions were answered to the patient's satisfaction. Differential Diagnosis Differential diagnosis: Likely abscess of skin or subcutaneous tissue, viral exanthem, urticaria, allergic reaction to drug, cellulitis, eczema and contact dermatitis Medical Records Attestation: I reviewed the patient's medical records. Discharge Plan Discharge Clinical Impression: Cutaneous abscess of groin Patient Disposition: Home Condition: Stable Instructions: Antibiotic Form, Abscess Follow-up (ED), Warm Compress or Soak (ED) Additional Instructions: DO NOT pick at the area. This will only make the area worse and drive infection deeper. DO NOT pick at the area. This will only make the area worse and drive infection deeper. Clean with soap and water only; Avoid using alcohol and peroxide. apply warm compresses for 20 minute several times a day to help soften the drainage, this may help open the area and cause drainage to come out. Alternate Tylenol/ibuprofen for as needed for pain Acetaminophen(Tylenol) 650-1000mg every 4-6hours with max of 4000mg/day. Nonsteroidal anti-inflammatory agent (NSAIDs-ibuprofen): 400mg every 4-6hours with max 2400mg/day Take antibiotic until it's gone. If you began to have multiple or reoccurring abscesses in these areas may use daily tea tree body washes or weekly chlorhexidine/Hibiclens washes, bleach baths, or Phisohex change razors or any shaving products you have used around this area. Using fresh towel daily while areas flared up. Please schedule a follow up visit with your personal physician for further evaluation and treatment within 3-5days OR if your symptoms persist, change or worsen significantly before you can contact your personal physician then please, without delay, go to the emergency department for further evaluation. Patient Language: Taiwanese Prescriptions: New doxycycline monohydrate 100 mg capsule 100 mg PO DAILY Qty: 90 0RF clindamycin HCl [Cleocin HCl] 300 mg capsule 300 mg PO Q8H Qty: 30 0RF No Action doxycycline hyclate 100 mg capsule Follow-up/Referrals: Michael,MATTY Odom [Primary Care Provider, Family Practice] Stand Alone Forms: Work/School Release IP Time of Disposition: 14:16
== END 2025-03-21 14:21 | disposition home or self-care (01) ==
PROVIDERS: Emergency Provider Nurse Practitioner Family; PCP Physician Assistant
DX: L02.214 Cutaneous abscess of groin (principal); Z87.891 Personal history of nicotine dependence; F12.90 Cannabis use, unspecified, uncomplicated
CPT/HCPCS: 99213; G0463

== ENCOUNTER 2025-04-09 15:56 | Emergency (ER) | payer OTHER, SELFPAY ==
[2025-04-09 16:06] VITALS: BP 117/74; PULSE 62; RESP 16; TEMP 36.6; O2SAT 100
--- NOTE | 2025-04-09 16:13 | ED.FEMALEGU ---
HPI - Female Genitourinary General Chief complaint: Urogenital-Female Stated complaint: uti symptoms Time Seen by Provider: 04/09/25 16:13 Source: patient, RN notes reviewed and old records reviewed Mode of arrival: ambulatory Limitations: no limitations History of Present Illness HPI Narrative: 34-year-old female presents to the [facility] with concerns for a UTI. Reports thick white discharge and irritation in the vaginal area. Recently on clindamycin and currently on doxycycline. Denies frequency, urgency. Has not taken anything to help with symptoms Reports the irritation has been increasing over the last 5 days Onset (ago): day(s) (5) Related Data Allergies Allergy/AdvReac Type Severity Reaction Status Date / Time Sulfa (Sulfonamide Allergy Intermediate Itching Verified 04/09/25 16:00 Antibiotics) Review of Systems Review of Systems: All systems reviewed & are unremarkable except as noted in HPI and below Constitutional: Constitutional: Reports no additional constitutional complaints ENT: Reports system reviewed and no additional complaints, except as documented Cardiovascular: Cardiovascular: Reports no additional cardiovascular complaints, Denies chest pain and Denies dyspnea Respiratory: Respiratory: Reports no additional respiratory complaints, Denies chest congestion, Denies cough and Denies dyspnea Genitourinary: Genitourinary: Reports as per HPI Musculoskeletal: Musculoskeletal: Reports no additional musculoskeletal complaints Integumentary/Breasts: Skin/Breast: Reports system reviewed and no additional complaints, except as docu PMFSH Past Medical History Medical History Trichomoniasis Dentalgia UTI (urinary tract infection) Pilonidal abscess Abscess of labia Surgical History Surgical History History of incision and drainage Complex i&d left perirectal abscess 06/13/21 Family History Family History Other Diabetes mellitus Hypertension Social History Social History Smoking status: Former smoker Tobacco type: cigarettes Alcohol intake: current Substance use: current Substance use type: marijuana Living arrangements: with family Occupation/Education: occupation Gender identity (if verbalized by the patient): Female Spiritual care concerns: No Comments At the time of my signature, I reviewed and agree with the nursing past medical, surgical, social, and family history. There is no relevant family history pertinent to the patient complaint. Exam Const: General: cooperative, healthy appearing, comfortable, no acute distress, well developed, alert and well nourished Nutritional Appearance: well nourished Orientation/consciousness: patient oriented x3 Limitations: no limitations HENMT: Head: normal to inspection Eyes: General: appearance normal, both eyes and all related structures Alignment and Position: alignment normal Neck: Neck: normal visual inspection, full ROM, no lymphadenopathy and no meningeal signs Chest: Chest palpation & inspection: normal inspection of the chest Resp: Effort & Inspection: normal respiratory effort and able to speak in complete sentences Auscultation: clear to auscultation bilaterally, no crackles, no rales, no rhonchi and no wheezes Cardio: Rate: regular rate GI: GI Palp: No abdominal tenderness Skin: General skin exam: normal color and no rashes or lesions noted Neuro: General: patient oriented x3, gait normal, moves all extremities and no meningeal signs Cognition (Neuro): normal cognition Speech: normal speech Gait exam (Neuro): Normal gait present Extrem: General: normal to inspection, full ROM, capillary refill normal and normal gait Psych: Appearance: grossly normal and well kempt Mental Status: mental status grossly normal Speech and movement: Normal speech and movement present and Clear speech present Affect: normal affect Attitude: cooperative Course Course Level of Care: Express Care Visit Vital Signs Vital signs: Vital Signs Temperature 97.9 F 04/09/25 16:06 Pulse Rate 62 04/09/25 16:06 Respiratory Rate 16 04/09/25 16:06 Blood Pressure 117/74 04/09/25 16:06 Pulse Oximetry 100 04/09/25 16:06 Oxygen Delivery Room Air 04/09/25 16:06 Temperature 97.9 F 04/09/25 16:06 Pulse Rate 62 04/09/25 16:06 Respiratory Rate 16 04/09/25 16:06 Blood Pressure 117/74 04/09/25 16:06 Pulse Oximetry 100 04/09/25 16:06 Oxygen Delivery Room Air 04/09/25 16:06 Reviewed MDM - Female Genitourinary MDM Narrative Medical decision making narrative: Patient sitting in exam room. Patient is nontoxic, vitals stable. Patient presents with 5 day worsening of thick white discharge, irritation that does not change with urination. Patient recently on antibiotics most likely a yeast infection Urine unlikely UTI but will culture Patient appropriate for outpatient treatment with yeast infection medication and discussed close follow-up with ob gyn physician assistant. Discharge instructions reviewed with patient, as well as provided in writing per nursing staff. The instructions also include specific and strict return/GO TO THE ER as well as f/u information. All questions have been answered, and the patient deny any further questions with discharge and discharge plan. Some parts of this dictation were generated by voice recognition software and may contain typographical and/or grammatical inaccuracies. Differential Diagnosis Differential diagnosis: Likely urinary tract infection, bacterial vaginosis, vaginitis and other (Yeast) Lab Data Labs: Lab Results 04/09/25 Range/Units 16:14 POC Urine Color Dark POC Urine Clarity Cloudy POC Urine pH 6.0 POC Ur Specif [place] 1.030 POC Urine Protein Negative (Negative) POC Ur Glucose (UA) Negative (Negative) POC Urine Ketones Negative (Negative) POC Urine Blood Negative (Negative) POC Urine Nitrite Negative (Negative) POC Urine Bilirubin Negative (Negative) POC Urine Urobilinogen 0.2 POC U Leukocyte Esteras Trace (Negative) Reviewed Critical Care Time Critical Care Time Critical Care Time: No Discharge Plan Discharge Clinical Impression: Vaginal yeast infection Patient Disposition: Home Condition: Stable Instructions: Antibiotic Form, Yeast Infection (ED) Additional Instructions: You have been treated for yeast infection Follow-up with your ob gyn physician assistant provider Worsening symptoms go directly to the emergency room Patient Language: Cymraes Prescriptions: New fluconazole 150 mg tablet 150 mg PO ONCE Qty: 2 0RF Rx Instructions: Take 1 dose today, repeat in 72 hours No Action doxycycline monohydrate 100 mg capsule 100 mg PO DAILY Qty: 90 0RF clindamycin HCl [Cleocin HCl] 300 mg capsule 300 mg PO Q8H Qty: 30 0RF Follow-up/Referrals: UNKNOWN,DOCTOR [Primary Care Provider] Stand Alone Forms: Work/School Release IP Time of Disposition: 16:22
[2025-04-09 16:17] LABS: EDUAAPPEAR Cloudy; EDUABILI Negative (Negative); EDUABLOOD Negative (Negative); EDUACOLOR1 Dark; EDUAGLUCOSE Negative (Negative); EDUAKETONE Negative (Negative); EDUALEUKO Trace (Negative); EDUANITRATE Negative (Negative); EDUAPH 6.0; EDUAPROTEIN Negative (Negative); EDUASPGRAVITY 1.030; EDUAUROBILI 0.2
== END 2025-04-09 16:28 | disposition home or self-care (01) ==
PROVIDERS: Emergency Provider Nurse Practitioner
DX: B37.31 Acute candidiasis of vulva and vagina (principal); Z87.891 Personal history of nicotine dependence
CPT/HCPCS: 81003; 87086; 99213; G0463

== ENCOUNTER 2025-05-20 09:12 | Emergency (ER) | payer OTHER, SELFPAY ==
--- NOTE | ~2025-05-20 | XR_ITS ---
EXAMINATION: XR knee RT min 4V, 05/20/2025 9:23 X RAY TECHNICIAN HISTORY: R knee injury COMPARISON: No comparisons available. Findings: No acute fracture or malalignment. No significant degenerative changes. Soft tissues unremarkable. Impression: No acute fracture or malalignment. Reviewed, dictated and finalized at location P. X RAY TECHNICIAN Impression: No acute fracture or malalignment.
[2025-05-20 09:18] VITALS: BP 127/69; PULSE 71; RESP 20; TEMP 36.7; O2SAT 100
--- NOTE | 2025-05-20 10:06 | ED_ITS ---
HPI - Extremity Injury (Lower) General Chief Complaint: Extremity Injury, Lower Stated Complaint: right leg injury Time Seen by Provider: 05/20/25 10:06 Source: patient Mode of arrival: ambulatory Limitations: no limitations History of Present Illness HPI Narrative: 34 yo F presents with R knee pain for 2 days. 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 States painful but not as bad as it is now. R knee feels stiff, cannot bend it. Ambulatory with limp. All systems reviewed and negative except as noted above. Related Data Allergies Allergy/AdvReac Type Severity Reaction Status Date / Time Sulfa (Sulfonamide Allergy Intermediate Itching Verified 05/20/25 09:49 Antibiotics) PENDING SALE TO [facility] Past Medical History Medical History Trichomoniasis Dentalgia UTI (urinary tract infection) Pilonidal abscess Abscess of labia Surgical History Surgical History History of incision and drainage Complex i&d left perirectal abscess 06/13/21 Family History Family History Other Diabetes mellitus Hypertension Social History Social History Tobacco type: cigarettes Alcohol intake: current Substance use: current Substance use type: marijuana Living arrangements: with family Occupation/Education: occupation Gender identity (if verbalized by the patient): Female Spiritual care concerns: No Comments At time of signature, agree with nursing past medical, surgical, social and family history. There is no relevant family history pertinent to the presenting complaint. Exam Narrative: GENERAL: This is a well-nourished, well-developed patient, in no apparent distress. HEAD: normocephalic, atraumatic. EYES: PERRL. Sclera clear/white. Vision is grossly intact. EARS: External ears normal NOSE: External nose normal NECK: Neck supple, non-tender without lymphadenopathy, masses or thyromegaly. CARDIOVASCULAR: Regular rate and rhythm without murmurs, gallops, or rubs. RESPIRATORY: Clear to auscultation. Breath sounds equal bilaterally. No wheezes, rales, or rhonchi. SKIN: warm, Dry, intact with no suspicious lesions or rash, good texture and turgor. NEURO: awake, alert, and oriented to person, place and time. There were no obvious focal neurologic abnormalities. EXTREMITIES: mild swelling to right knee. Tender to right patellar tendon, lateral aspect and posterior aspect on palpation. Decreased flexion due to pain. Anterior and posterior drawer testing negative. No bruising noted. Course Course Level of Care: Express Care Visit Vital Signs Vital signs: Vital Signs Temperature 36.7 C 05/20/25 09:18 Pulse Rate 71 05/20/25 09:18 Respiratory Rate 20 05/20/25 09:18 Blood Pressure 127/69 05/20/25 09:18 Pulse Oximetry 100 05/20/25 09:18 Oxygen Delivery Room Air 05/20/25 09:18 Temperature 36.7 C 05/20/25 09:18 Pulse Rate 71 05/20/25 09:18 Respiratory Rate 20 05/20/25 09:18 Blood Pressure 127/69 05/20/25 09:18 Pulse Oximetry 100 05/20/25 09:18 Oxygen Delivery Room Air 05/20/25 09:18 At time of signature, agree with nursing past medical, surgical, social and family history. There is no relevant family history pertinent to the presenting complaint. MDM - Extremity Injury (Lower) MDM Narrative Medical decision making narrative: X-ray of right knee negative for fracture. Discussed results with patient. Leon wrap placed. Patient given a instructions for crutches. Recommend crutches for 5-7 days. Will follow up with primary care physician if right knee pain is not improving. Differential Diagnosis Differential diagnosis: Likely other ( Right knee sprain, right knee contusion) Imaging Data My impression: agree with radiologist Radiologist's impression: EXAMINATION: XR knee RT min 4V, 05/20/2025 9:23 CUSTOMER SUPPORT CONSULTANT HISTORY: R knee injury COMPARISON: No comparisons available. Findings: No acute fracture or malalignment. No significant degenerative changes. Soft tissues unremarkable. Impression: No acute fracture or malalignment. Discharge Plan Discharge Clinical Impression: Contusion of knee, right Qualifiers: Encounter type: initial encounter Qualified Code(s): S80.01XA - Contusion of right knee, initial encounter Patient Disposition: Home Condition: Stable Instructions: Contusion in Adults (ED), Knee Pain (ED) Additional Instructions: the x-ray of your right knee is negative for fracture. Take ibuprofen every 6-8 hours as needed for pain. Elevate when at rest. Apply ice as needed for pain. Follow-up with your primary care physician if pain is not improving in the next 2-3 weeks. Patient Language: Maltese Prescriptions: No Action doxycycline monohydrate 100 mg capsule 100 mg PO DAILY Qty: 90 0RF clindamycin HCl [Cleocin HCl] 300 mg capsule 300 mg PO Q8H Qty: 30 0RF fluconazole 150 mg tablet 150 mg PO ONCE Qty: 2 0RF Rx Instructions: Take 1 dose today, repeat in 72 hours Follow-up/Referrals: Michael,MATTY Odom [Primary Care Provider, Family Practice] Stand Alone Forms: Work/School Release IP Time of Disposition: 10:13
== END 2025-05-20 10:20 | disposition home or self-care (01) ==
PROVIDERS: Emergency Provider Nurse Practitioner Family; PCP Physician Assistant
DX: S80.01XA Contusion of right knee, initial encounter (principal); W22.8XXA Striking against or struck by other objects, initial encounter; Y99.0 Civilian activity done for income or pay; Z72.0 Tobacco use; F12.90 Cannabis use, unspecified, uncomplicated
CPT/HCPCS: 73564; 99213; G0463